=== PATIENT | female | born 1965 | race Caucasian/White ===

== ENCOUNTER 2019-03-16 06:00 | Outpatient (RCR) | payer MEDICARE, MEDICAID, SELFPAY | END 2019-04-13 00:01 | LOC: APT 06:00 | PROVIDERS: Family Provider Nurse Practitioner; Visit Provider Nurse Practitioner | DX: S93.401D Sprain of unspecified ligament of right ankle, subsequent encounter (principal); X58.XXXD Exposure to other specified factors, subsequent encounter | CPT/HCPCS: 97110; 97161 ==

== ENCOUNTER 2019-04-14 06:00 | Outpatient (RCR) | payer MEDICARE, MEDICAID, SELFPAY | END 2019-05-14 23:59 | disposition home or self-care (01) | LOC: APT 06:00 | PROVIDERS: Family Provider Nurse Practitioner; PCP Nurse Practitioner; Visit Provider Nurse Practitioner | DX: S93.401D Sprain of unspecified ligament of right ankle, subsequent encounter (principal); X58.XXXD Exposure to other specified factors, subsequent encounter ==

== ENCOUNTER → 2019-04-23 11:08 | Outpatient (BNVA) | payer MEDICARE, MEDICAID, SELFPAY | PROVIDERS: Family Provider Nurse Practitioner; PCP Nurse Practitioner | DX: M25.532 Pain in left wrist (principal); M85.88 Other specified disorders of bone density and structure, other site | CPT/HCPCS: 73110; 73130 ==

== ENCOUNTER 2019-04-27 01:59 | Emergency (ER) | payer MEDICARE, MEDICAID, SELFPAY ==
[2019-04-20 16:24] VITALS: BP 133/71; BMI 25.6
--- NOTE | 2019-04-27 02:05 | XR_ITS ---
WS: [id number] Left hand, 3 views, 04/27/2019 Clinical Data: pain Comparison: Left hand, 04/23/2019 Findings: No fractures or dislocations are seen. . The soft tissues are unremarkable. The joint spaces are norm al. XR/XR hand LT min 3V* [id number] Impression: Negative left hand.
[2019-04-27 02:45] VITALS: BMI 26.4
--- NOTE | 2019-04-27 02:56 | ED_ITS ---
Entered by Dede Boone, acting as scribe for Daniella Ortiz MD Apr 27, 2019 01:59 HPI - Extremity Problem General: Chief complaint: Extremity Injury, Upper Stated complaint: L HAND PAIN Time Seen by Provider: 04/27/19 02:49 Source: patient Mode of arrival: EMS Limitations: no limitations History of Present Illness: HPI Narrative: 53 yo f came to the er by [facility] for rt hand pain. Onset was last night. Pt states that she just woke up and her left hand was swollen and is in alot of pain. MD Complaint: extremity pain and extremity swelling Onset (ago): day(s) (today) Pain Consistency: constant Associated symptoms: Deny chest pain, fever(s) or rash Review of Systems Const: Denies: fever or chills Eyes: Denies: change in vision ENMT: Denies: throat pain or mouth pain Card: Denies: chest pain Resp: Denies: shortness of breath GI: Denies: abdominal pain, vomiting or diarrhea : Denies: difficulty urinating Musc: Reports: joint pain; Denies: back pain Skin/Breast: Denies: rash Neuro: Denies: headache Psych: Denies: depression Endo: Denies: excessive urination Pablo/Lymph: Denies: easy bruising All/Imm: Denies: hives PFSH ED PFSH: Statuses (acute, chronic, etc) shown below reflect problem list status as previously entered and may not be historically accurate Medical History Diabetes mellitus (Acute) Smoker (Inactive) Surgical History History of hysterectomy (Acute) History of neck surgery (Acute) Family History Mother Cancer Heart disease Social History Smoking and tobacco status: current every day smoker Second hand smoke exposure: Yes Alcohol intake: current Alcohol intake frequency: 0-2 Drinks per Day Marital status: History of recent travel: No Physical Exam Const: COMMON NORMALS: no apparent distress and healthy appearing HENMT: COMMON NORMALS: normocephalic and external nose normal HEAD & SCALP: normocephalic NOSE: external nose normal and no nasal discharge (nasal dischage) Eye: COMMON NORMALS: PERRL PUPIL: Yes PERRL Neck/C-Spine: COMMON NORMALS: full ROM and no lymphadenopathy Chest: COMMONS NORMALS: inspection of chest normal Resp: COMMON NORMALS: normal respiratory effort and clear to auscultation bilaterally AUSCULTATION: clear to auscultation bilaterally Cardio: COMMON NORMALS: regular rate and regular rhythm RATE: regular rate RHYTHM: regular rhythm GI: COMMON NORMALS: soft to palpation PALPATION: Yes soft Extremity: COMMON NORMALS: normal to inspection and normal capillary refill OTHER: Patient presents here with wrist pain with a slight left wrist drop tenderness over left wrist. She has sensation intact will not extend her hand or wrist she does have flexion intact Psych: COMMON NORMALS: mental status grossly normal and cooperative Skin: COMMON NORMALS: no rashes or lesions noted GENERAL SKIN EXAM: no rashes or lesions noted Course Vital Signs: Vital signs: Vital Signs Temperature 97.6 F 04/27/19 03:21 Pulse Rate 73 04/27/19 03:21 Respiratory Rate 18 04/27/19 03:21 Blood Pressure 100/57 04/27/19 03:21 Pulse Oximetry 93 04/27/19 03:21 MDM - Extremity (Nontraumatic) MDM Narrative: Medical decision making narrative: Patient presents here with wrist pain along with some wrist drop. Patient placed in a cock-up splint and is to follow-up with Dr. Calvo. Exam here is benign otherwise. X-ray shows no fracture. Imaging Data^: left wrist: My impression: no acute abnormality Discharge Plan Discharge Patient Disposition: Home, Self-Care Clinical Impression: Acute pain of left wrist Condition: Stable Prescriptions: New EC-Naprosyn 500 mg tablet,delayed release (DR/EC) 500 mg PO BID PRN (Reason: pain) Qty: 20 RF: 0 No Action trazodone 150 mg tablet PO ONCE RF: 0 atorvastatin [Lipitor] 20 mg tablet 20 mg PO ONCE RF: 0 lisinopril 2.5 mg tablet 2.5 mg PO ONCE RF: 0 Trulicity 0.75 mg/0.5 mL pen injector 0.75 mg SUBCUT ONCE RF: 0 omeprazole 40 mg capsule,delayed release(DR/EC) 40 mg PO ONCE RF: 0 tizanidine 2 mg tablet 2 mg PO BID RF: 0 aripiprazole [Abilify] 20 mg tablet 20 mg PO ONCE RF: 0 cannabidiol (CBD) extract 100 mg/mL solution PO RF: 0 benztropine 1 mg tablet 1 mg PO .HS RF: 0 (DME) Wrist Brace Misc See Rx Instructions .ROUTE .MEDSUPPLY Qty: 1 RF: 0 zonisamide [Zonegran] 25 mg capsule 50 mg PO BID Qty: 60 RF: 0 Discharge Orders: Discharge Order (Routine); Ordered 04/27/19 Ordered By: Daniella Ortiz Referrals: Lucila Thomas, HEALTH EDUCATION ASSISTANT-C [Primary Care Provider] - Ashley Corral MD [Physician] - 4-7 days Discharge Diet: Advance as tolerated Discharge Activity: Resume usual activity Patient Instructions: Arthralgia (ED) Discharge Date/Time: 04/27/19 03:22 Coding Level of Care Code ED Participant Administrator for Chg Fwd Exam Problem Focused The documentation recorded by the Paolo corral Stephanie Lyn, accurately reflects the service I personally performed and the decisions made by Diana laguerre Korby, MD Apr 27, 2019 01:59
[2019-04-27] MEDS: naproxen 500 mg Tablet PO (03:07)
[2019-04-27 03:18] VITALS: PULSE 73
[2019-04-27 03:21] VITALS: BP 100/57; PULSE 73; RESP 18; TEMP 36.4; O2SAT 93
--- NOTE | 2019-04-27 11:09 | DCPLANNER ---
project construction manager had message to schedule a follow up appointment for patient with ortho. project construction manager called the ortho clinic, spoke with Pat, gave clinic patients information. project construction manager was told that patients information would be printed and reviewed. Clinic will call case making machine operator and patient with appointment information.
--- NOTE | 2019-05-04 16:08 | DCPLANNER ---
Ary from ortho called insurance case manager and stated that patients records were reviewed, and was told that patient can follow up with primary care. If patient is still in pain after a few weeks and has followed up with primary care, then patient can be seen at ortho. Ary called patient, left a voicemail for patient to return her phone call so that patient could be told this, no one has returned orthos phone call at this time.
== END 2019-04-27 03:22 | disposition home or self-care (01) ==
PROVIDERS: Emergency Provider Emergency Medicine; Family Provider Nurse Practitioner; PCP Nurse Practitioner
DX: M25.532 Pain in left wrist (principal); E11.9 Type 2 diabetes mellitus without complications; Z79.4 Long term (current) use of insulin; F17.210 Nicotine dependence, cigarettes, uncomplicated
CPT/HCPCS: 73130; 99281; 99283

== ENCOUNTER 2019-05-22 21:07 | Emergency (ER) | payer MEDICARE, MEDICAID, SELFPAY ==
[2019-04-20 16:24] VITALS: BP 133/71; BMI 25.6
[2019-05-22 21:03] VITALS: BP 122/84; PULSE 100; RESP 16; TEMP 36.9; O2SAT 94; BMI 25.4
--- NOTE | 2019-05-22 21:24 | ED_ITS ---
HPI - Ear Problem General: Chief complaint: Ear Stated complaint: ear ache Time Seen by Provider: 05/22/19 21:22 History of Present Illness: HPI Narrative: Patient is a 53-year-old female who presents to the emergency department complaint of left ear pain since yesterday. She states she has had intermittent fever as well. She also states she had drainage from the left ear for 2 weeks. She has not seen her primary care provider. She states it is better when she applies cotton balls to the ear. History of dyslipidemia, hypertension, tardive dyskinesia, COPD, diabetes and bipolar disease. No surgical history. He has multiple allergies MD Complaint: ear pain and ear discharge Location: left ear Associated symptoms: Reports ear or mastoid pain and fever(s); Denies headache(s) Review of Systems Const: Reports: fever Eyes: Denies: change in vision ENMT: Reports: ear pain; Denies: dry mouth Card: Denies: edema Resp: Denies: shortness of breath GI: Denies: abdominal pain : Denies: flank pain, difficulty urinating or painful urination Musc: Denies: extremity swelling or redness Skin/Breast: Denies: rash or skin swelling Neuro: Denies: headache or weakness in extremities Psych: Denies: anxiety Endo: Denies: excessive urination Pablo/Lymph: Denies: purpura All/Imm: Denies: hives PFSH ED PFSH: Statuses (acute, chronic, etc) shown below reflect problem list status as previously entered and may not be historically accurate Social History Smoking and tobacco status: current every day smoker Second hand smoke exposure: Yes Alcohol intake: current Alcohol intake frequency: 0-2 Drinks per Day Marital status: History of recent travel: No Physical Exam Const: COMMON NORMALS: no apparent distress, oriented x3 and alert ORIENTATION/CONSCIOUSNESS: Yes oriented to person and Yes oriented to place HENMT: COMMON NORMALS: normocephalic HEAD & SCALP: normal to inspection and normocephalic EXTERNAL EAR: Yes mastoids normal TYMPANIC MEMBRANE: TM normal on the left and other (Mild erythema of left ear canal without drainage noted. Patient does have pain with auricular movement. TM appears to be intact with limited visualization.) Eye: COMMON NORMALS: PERRL, EOMs intact bilaterally and conjunctivae normal GENERAL EYE: normal appearance of both eyes CONJUNCTIVA: Yes conjunctivae normal PUPIL: Yes PERRL Neck/C-Spine: COMMON NORMALS: full ROM, no lymphadenopathy, supple, no meningeal signs and no JVD GENERAL: Yes normal visual inspection and Yes trachea midline Lymph: LYMPHATIC: no lymphadenopathy noted Chest: COMMONS NORMALS: inspection of chest normal Resp: COMMON NORMALS: normal respiratory effort, no retractions and clear to auscultation bilaterally EFFORT & INSPECTION: Yes able to speak in complete sentences AUSCULTATION: clear to auscultation bilaterally Cardio: COMMON NORMALS: no JVD, regular rate and regular rhythm RATE: regular rate RHYTHM: regular rhythm GI: INSPECTION: Yes normal to inspection AUSCULTATION: Yes normoactive darion wel sounds : COMMON NORMALS: Yes no CVA tenderness BLADDER/KIDNEY EXAM: Yes no CVA tenderness Back/Pelvis: COMMON NORMALS: no CVA tenderness THORACIC SPINE/UPPER BACK: Yes normal to inspection LUMBAR SPINE/LOWER BACK: Yes normal to inspection Extremity: COMMON NORMALS: normal to inspection, full ROM and normal capillary refill GENERAL: Yes normal exam except as noted Neuro: COMMON NORMALS: oriented x3, CN's II-XII intact bilaterally, moves all extremities, no focal motor deficits and no sensory deficits noted SENSORIUM/ORIENTATION: Yes alert, Yes oriented to person and Yes oriented to place MENINGEAL SIGNS: Yes no meningeal signs SPEECH: speech normal GAIT: Yes normal gait Psych: COMMON NORMALS: mental status grossly normal, thought process normal, cooperative, affect normal and speech normal APPEARANCE: Yes grossly normal SPEECH: Yes normal speech THOUGHT PROCESS: normal thought process Skin: COMMON NORMALS: no rashes or lesions noted, no wounds and skin turgor normal GENERAL SKIN EXAM: no rashes or lesions noted, elasticity normal and turgor normal Course ED course: Patient is typing on her computer but is able answer my questions with her complaint of left ear pain. Will treat for otitis externa. Patient instructed to follow-up with primary care provider and ENT for ongoing evaluation. No indication for laboratory imaging studies. No mastoid tender ness. Vital Signs: Vital signs: Vital Signs Temperature 98.4 F 05/22/19 21:03 Pulse Rate 100 05/22/19 21:03 Respiratory Rate 16 05/22/19 21:03 Blood Pressure 122/84 05/22/19 21:03 Pulse Oximetry 94 05/22/19 21:03 MDM - Ear MDM Narrative: Medical decision making narrative: Patient with otitis externa. Will provide ciprofloxacin eardrops. Patient instructed to follow-up with primary care provider and ENT services for ongoing evaluation. Differential Diagnosis: Ear Differential Diagnosis: Likely otitis externa, otitis media and ruptured TM Discharge Plan Discharge Patient Disposition: Home, Self-Care Clinical Impression: Otitis externa Condition: Stable Prescriptions: New ciprofloxacin HCl 0.2 % dropperette 5 drp otic (ear) BID 7 Days Qty: 1 RF: 0 No Action trazodone 150 mg tablet 150 mg PO ONCE RF: 0 tizanidine 2 mg tablet 2 mg PO BID RF: 0 aripiprazole [Abilify] 20 mg tablet 20 mg PO ONCE RF: 0 cannabidiol 100 mg/mL solution PO RF: 0 benztropine 1 mg tablet 1 mg PO .HS RF: 0 (DME) Wrist Brace Misc See Rx Instructions .ROUTE .MEDSUPPLY Qty: 1 RF: 0 zonisamide [Zonegran] 25 mg capsule 50 mg PO BID Qty: 60 RF: 0 lisinopril 2.5 mg tablet 2.5 mg PO QDAY Qty: 30 RF: 0 omeprazole 40 mg capsule,delayed release(DR/EC) 40 mg PO QDAY Qty: 30 RF: 0 atorvastatin [Lipitor] 20 mg tablet 20 mg PO QDAY Qty: 30 RF: 0 albuterol sulfate [Ventolin HFA] 90 mcg/actuation HFA aerosol inhaler 2 puff INHALATION Q6H PRN (Reason: shortness of breath or wheezing) Qty: 18 RF: 0 Symbicort 160-4.5 mcg/actuation HFA aerosol inhaler 2 puff INHALATION Q12H Qty: 10.2 RF: 0 Trulicity 0.75 mg/0.5 mL pen injector 0.75 mg SUBCUT .weekly Qty: 2 RF: 0 naproxen [EC-Naprosyn] 500 mg tablet,delayed release (DR/EC) 500 mg PO BID PRN (Reason: pain) Qty: 20 RF: 0 Referrals: Lucila Thomas FNP-C [Family Provider] - 1-3 days Floyd,Raúl, MD [Primary Care Provider] - Discharge Diet: Advance as tolerated Discharge Activity: Resume usual activity Patient Instructions: Otitis Externa - Adult Activity Restrictions/Additional Instructions: Apply medication as directed. Follow-up with primary care provider and ENT services for ongoing evaluation. May apply cotton ball to the outside ear canal to help prevent irritating wind. Alternate Tylenol Motrin for any discomfort. Coding Level of Care Code ED Mechanical Maintenance Technician for Lenny Winn
[2019-05-22 22:01] VITALS: BP 130/65; PULSE 103; RESP 20; O2SAT 98
== END 2019-05-22 21:56 | disposition home or self-care (01) ==
LOC: ER 05-24 15:53
PROVIDERS: Emergency Provider Nurse Practitioner; Family Provider Nurse Practitioner; PCP Urology
DX: H60.92 Unspecified otitis externa, left ear (principal); E78.5 Hyperlipidemia, unspecified; I10 Essential (primary) hypertension; J44.9 Chronic obstructive pulmonary disease, unspecified; E11.9 Type 2 diabetes mellitus without complications; Z79.4 Long term (current) use of insulin; Z79.51 Long term (current) use of inhaled steroids; F17.200 Nicotine dependence, unspecified, uncomplicated
CPT/HCPCS: 99281

== ENCOUNTER 2019-06-03 11:57 | Emergency (ER) | payer MEDICARE, MEDICAID, SELFPAY ==
[2019-04-20 16:24] VITALS: BP 133/71; BMI 25.6
[2019-06-03 12:04] VITALS: BP 138/97; PULSE 75; RESP 16; TEMP 36.9; O2SAT 97; BMI 27.1
--- NOTE | 2019-06-03 12:16 | ED_ITS ---
Entered by Carmelina Negrete, acting as scribe for Daren Nguyen MD, [facility] [place] - Headache General: Chief Complaint: Headache Stated Complaint: HEADACHE, VISION LOSS Time Seen by Provider: 06/03/19 12:14 Source: patient Mode of arrival: EMS Limitations: no limitations History of Present Illness: HPI Narrative: 54 yo Female presents to ED with complaint of headache and vision loss. Pt states that on the she had an angiogram of her brain. Pt states that the last time she held her breath for the angiogram on Friday she got a really bad headache. Pt states that she has slowly been losing vision in her right eye since the procedure. Pt states that if she closes her left eye she can see an outline but can't see detail out of her right eye. Pt states that she had the angiogram because a CT showed an abnormality between her right eye and her brain. 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 Pt states that when she called the surgeon's office today to tell them about her symptoms, she was told to get to the hospital right away. Pt states that her angiogram was done by Dr. Workman. LI elicited complaint: headache Onset (ago): day(s) Onset description: gradually Location: right Quality & Timing: constant Exacerbating factors: none Relieving factors: nothing Associated symptoms: Reports loss of vision; Deny chest pain, fever(s), nausea, rash or vomiting Treatments prior to arrival: none Review of Systems General: Reports: 10 or more systems reviewed and unremarkable except in HPI and below Const: Denies: fever, chills or body aches Eyes: Reports: change in vision; Denies: blurry vision ENMT: Denies: throat pain, enlarged tonsils, painful swallowing, hoarseness, mouth pain or swelling of lips/tongue Card: Denies: chest pain, palpitations, irregular heart rhythm, edema or swelling of feet/ankles Resp: Denies: shortness of breath, productive cough or non-productive cough GI: Denies: abdominal pain, nausea or vomiting : Denies: flank pain, difficulty urinating, painful urination, urinary frequency, urinary urgency or urinary hesitancy Musc: Denies: neck pain, back pain or extremity swelling Skin/Breast: Denies: rash, itching or redness Neuro: Reports: headache; Denies: numbness in extremities or weakness in extremities Endo: Denies: excessive urination, excessive thirst or tired all the time PFSH ED PFSH: Medical History Diabetes mellitus Smoker Surgical History History of hysterectomy History of neck surgery Family History Mother Cancer Heart disease Social History Smoking and tobacco status: current every day smoker Second hand smoke exposure: Yes Alcohol intake: current Alcohol intake frequency: 0-2 Drinks per Day Marital status: History of recent travel: No Physical Exam Const: COMMON NORMALS: no apparent distress, average body habitus, oriented x3, no limitations, healthy appearing, alert and well nourished HENMT: COMMON NORMALS: normocephalic, head/scalp atraumatic and moist oral mucous membranes HEAD & SCALP: normocephalic and atraumatic Eye: COMMON NORMALS: PERRL, EOMs intact bilaterally, conjunctivae normal and no scleral icterus CONJUNCTIVA: Yes conjunctivae normal PUPIL: Yes PERRL Neck/C-Spine: COMMON NORMALS: full ROM, supple, no meningeal signs, no JVD and no carotid bruits Chest: COMMONS NORMALS: inspection of chest normal and palpation of chest normal Resp: COMMON NORMALS: normal respiratory effort, no retractions, no use of accessory muscles, clear to auscultation bilaterally and percussion normal AUSCULTATION: clear to auscultation bilaterally PERCUSSION: percussion normal Cardio: COMMON NORMALS: no JVD, regular rate, regular rhythm, S1 normal heart sound, S2 normal heart sound, no gallops, no clicks, no murmurs, no rub and peripheral pulses 2+ throughout RATE: regular rate RHYTHM: regular rhythm HEART SOUNDS: S1 normal and S2 normal PERIPHERAL PULSES: pulses 2+ throughout GI: COMMON NORMALS: normal to inspection, nondistended, normoactive bowel sounds, soft to palpation, non-tender, no hepatosplenomegaly, no masses and no bruits PALPATION: Yes soft and Yes no hepatosplenomegaly : COMMON NORMALS: Yes no CVA tenderness BLADDER/KIDNEY EXAM: Yes no CVA tenderness Back/Pelvis: COMMON NORMALS: no CVA tenderness Extremity: COMMON NORMALS: normal to inspection, full ROM, normal capillary refill, no calf tenderness and no pedal edema Neuro: COMMON NORMALS: oriented x3 SENSORIUM/ORIENTATION: Yes alert MENINGEAL SIGNS: Yes no meningeal signs Skin: COMMON NORMALS: no rashes or lesions noted, no wounds, skin turgor normal, no jaundice, no petechiae and no mottling GENERAL SKIN EXAM: no rashes or lesions noted and turgor normal Course Reevaluation(s): Reevaluation #1: Patient feels much better following the Toradol and Benadryl. Headache has resolved. She is ready to be discharged home. I explained to her my conversation with Dr. Bay and she understands that she is scheduled for surgery soon. This is unlikely to be as a result of the arteriogram. Time: 16:46 Vital Signs: Vital signs: Vital Signs Temperature 98.4 F 06/03/19 12:04 Pulse Rate 75 06/03/19 12:04 Respiratory Rate 16 06/03/19 12:04 Blood Pressure 138/97 06/03/19 12:04 Pulse Oximetry 97 06/03/19 12:04 MDM - Headache MDM Narrative: Medical decision making narrative: 54-year-old female patient who presents to the emergency department with a headache following an arteriogram. Symptoms have been ongoing for 4 days. No focal deficits. She also has some reduced vision in the right eye. Head CT negative, other labs unremarkable. Discussed with the neurosurgeon/interventional radiologist and he does not think this is related to the arteriogram. She is already scheduled for an embolization in a couple of weeks. He advised that I discharge her home once her headache is improved following treatment for headaches. Patient headache resolved following Toradol and Benadryl. She is to follow-up with her primary care provider and with the neurosurgeon as scheduled. Medical Records: Attestation: I reviewed the patient's medical records. Medical records narrative: Reviewed the head and neck arteriogram showing the AV fistula Lab Data: Attestation: I reviewed the patient's lab results. Labs: Lab Results 06/03/19 06/03/19 06/03/19 Range/Units 13:05 13:05 13:05 WBC 10.2 H (4.0-10.0) 10^3/ uL RBC 4.16 (4.1-5.3) 10^6/u L Hgb 12.6 (11.5-15.3) g/dL Hct 42.7 (37.0-47.0) % MCV 102.6 H (81-99) fL MCH 30.3 (28.0-34.0) pg MCHC 29.5 L (30.0-36.0) g/dL RDW 12.8 (12.1-15.1) % Plt Count 170 (130-400) 10^3/c mm MPV 11.0 H (7.4-10.4) fL Neut % (Auto) 63.5 % Lymph % (Auto) 29.2 % Dolores % (Auto) 5.8 % Eos % (Auto) 0.6 % Baso % (Auto) 0.7 % Neut # (Auto) 6.5 (1.8-7.7) 10^3/u L Lymph # (Auto) 3.0 (0.8-4.8) 10^3/u L Dolores # (Auto) 0.6 (0.2-0.9) 10^3/u L Eos # (Auto) 0.1 (0.0-0.8) 10^3/u L Baso # (Auto) 0.1 (0.0-0.1) 10^3/u L Nucleated RBC % (a uto) 0 % Nucleated RBCs # 0.0 /100WBC PT 13.80 H (10.5-13.3) SECO NDS INR 1.03 (0.8-1.2) Sodium 142 (136-145) mmol/L Potassium 4.0 (3.5-5.1) mmol/L Chloride 108 H (98-107) mmol/L Carbon Dioxide 19 L (22-29) mmol/L Anion Gap 19.0 (5-19) BUN 8 (6-20) mg/dL Creatinine 0.7 (0.5-0.9) mg/dL GFR Calculation 87.2 L (90-130) mL/min Glucose 102 (65-115) mg/dL Calcium 10.1 (8.5-10.5) mg/dL Total Bilirubin 0.5 (0.15-1.2) mg/dL AST 15 (0-32) U/L ALT 10 (0-33) U/L Alkaline Phosphata se 83 (35-105) IU/L Total Protein 6.6 (6.6-8.7) g/dL Albumin 3.9 (3.5-5.2) g/dL Globulin 2.7 (1.3-4.6) g/dL Imaging Data^: CXR: Radiologist's impression: [address] [place] [address] XRay Report Signed Patient: Demetris Francisco #: [id number] : 1965Acct#:[id number] Age/Sex: 54 / FADM Date: 06/03/19 Loc: ERRoom/Bed: Attending Dr: Ordering Provider/Ordering MD: Daren Nguyen MD, [facility] [place] Date of Service: 06/03/19 Procedure(s): XR chest 2V* 13960 Accession Number(s): [id number] Report Number: [id number] WS: [id number] XR chest 2V* 60427 REASON FOR EXAM: headache FINDINGS: The heart and mediastinal interfaces are normal. Arteriosclerotic changes in the arch of the aorta. The hilum and apices are normal. Postop changes anterior approach anterior cervical spine. The lung joe are normal no pneumonia, pleural effusion, pulmonary edema, or pneumothorax. XR/XR chest 2V* 60102 IMPRESSION: Negative chest for active pathology. Dictated By:Sampson Caro DO Signed By:Sampson Caro DOSigned Date/Time:06/03/19 1254 DD/ 1253 CT Head: Radiologist's impression: [address] [place] [address] CT Scan Report Signed Patient: Demetris Francisco #: [id number] : 1965Acct#:[id number] Age/Sex: 54 / FADM Date: 06/03/19 Loc: ERRoom/Bed: Attending Dr: Ordering Provider/Ordering MD: Daren Nguyen MD, [facility] [place] Date of Service: 06/03/19 Procedure(s): CT head wo con* [id number] Accession Number(s): [id number] Report Number: [id number] WS: [id number] CT HEAD TECHNIQUE: Noncontrast CT of the head obtained from the skullbase to the vertex. CLINICAL INFORMATION: Headache, right vision loss COMPARISON: October 10, 2018 DLP: 701.[address] scans at [facility] use at least one of these dose optimization techniques: automated exposure control; mA and/or kV adjustment per patient size (includes targeted exams where dose is matched to clinical ind ication); or iterative reconstruction. FINDINGS: No evidence of intracranial hemorrhage or mass effect. Ventricular system and basal cisterns are patentNo extra-axial fluid collections. No evidence of mass or mass effect. Normal garza-white differentiation. Paranasal sinuses and mastoid air cells are well aerated. .Normal visualized soft tissues. Notified Daren Nguyen MD [facility] at 06/03/2019 1:[address]/CT head wo con* [id number] IMPRESSION: 1. No evidence of intracranial hemorrhage or mass effect. 2. Normal garza-white differentiation 3. 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 Dictated By:Ken Kwon MD Signed By:Ken Kwon MDSigned Date/Time:06/03/19 1306 DD/ 1259 EKG Data^: EKG 1: Attestation: I personally reviewed and interpreted this EKG as follows: EKG interpretation date: 06/03/19 EKG interpretation time: 13:15 Prior EKG tracings: not available for review Interpretation: Normal sinus rhythm. With sinus arrhythmia. Heart rate 61 bpm. Normal axis. No ST changes. Discharge Plan Discharge Patient Disposition: Home, Self-Care Clinical Impression: Migraine Qualifiers: Migraine type: without aura Status migrainosus presence: without status migrainosus Intractability: intractable Qualified Code(s): G43.019 - Migraine without aura, intractable, without status migrainosus Condition: Stable Prescriptions: Continued trazodone 150 mg tablet 150 mg PO ONCE RF: 0 tizanidine 2 mg tablet 2 mg PO BID RF: 0 aripiprazole [Abilify] 20 mg tablet 20 mg PO ONCE RF: 0 cannabidiol 100 mg/mL solution PO RF: 0 benztropine 1 mg tablet 1 mg PO .HS RF: 0 (DME) Wrist Brace Misc See Rx Instructions .ROUTE .MEDSUPPLY Qty: 1 RF: 0 zonisamide [Zonegran] 25 mg capsule 50 mg PO BID Qty: 60 RF: 0 lisinopril 2.5 mg tablet 2.5 mg PO QDAY Qty: 30 RF: 0 omeprazole 40 mg capsule,delayed release(DR/EC) 40 mg PO QDAY Qty: 30 RF: 0 atorvastatin [Lipitor] 20 mg tablet 20 mg PO QDAY Qty: 30 RF: 0 albuterol sulfate [Ventolin HFA] 90 mcg/actuation HFA aerosol inhaler 2 puff INHALATION Q6H PRN (Reason: shortness of breath or wheezing) Qty: 18 RF: 0 Symbicort 160-4.5 mcg/actuation HFA aerosol inhaler 2 puff INHALATION Q12H Qty: 10.2 RF: 0 Trulicity 0.75 mg/0.5 mL pen injector 0.75 mg SUBCUT .weekly Qty: 2 RF: 0 naproxen [EC-Naprosyn] 500 mg tablet,delayed release (DR/EC) 500 mg PO BID PRN (Reason: pain) Qty: 20 RF: 0 Discharge Orders: Discharge Order (Routine); Ordered 06/03/19 Ordered By: Daren Nguyen Referrals: Lucila Thomas, LE[facility] RECEPTIONIST-C [Family Provider] - 4-7 days Raúl Floyd MD [Primary Care Provider] - Patient Instructions: Headache - Migraine (Adult) Activity Restrictions/Additional Instructions: Return for any new or worsening symptoms. Follow-up with your primary care provider within 1 week. Follow-up with Dr. bay as scheduled for the surgery. Drink plenty of fluids to keep well-hydrated Coding Level of Care Code ED Dealership General Manager for Chg Fwd Exam Comprehensive The documentation recorded by the Penelope corral Carmen, accurately reflects the service I personally performed and the decisions made by Patrick laguerre Adegoke I, MD, [facility] [place] Jun 03, 2019 11:57
--- NOTE | 2019-06-03 12:26 | CT_ITS ---
WS: [id number] CT HEAD TECHNIQUE: Noncontrast CT of the head obtained from the skullbase to the vertex. CLINICAL INFORMATION: Headache, right vision loss COMPARISON: October 10, 2018 DLP: 701.[address] scans at [facility] use at least one of these dose optimization techniques: automat ed exposure control; mA and/or kV adjustment per patient size (includes targeted exams where dose is matched to clinical indication); or iterative reconstruction. FINDINGS: No evidence of intracranial hemorrhage or mass effect. Ventricular system and basal cisterns are martinez ntNo extra-axial fluid collections. No evidence of mass or mass effect. Normal garza-white differentia tion. Paranasal sinuses and mastoid air cells are well aerated. .Normal visualized soft tissues. Notified Daren Nguyen MD [facility] at 06/03/2019 1:[address]/CT head wo con* [id number] IMPRESSION: 1. No evidence of intracranial hemorrhage or mass effect. 2. Normal garza-white differentiation 3. 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
--- NOTE | 2019-06-03 12:26 | ECG_ITS ---
Measurements Intervals [place] Rate: 61 P: 54 RI: 141 QRS: 27 QRSD: 87 T: 27 QT: 396 QTc: 402 SINUS RHYTHM WITH SINUS ARRHYTHMIA Compared to ECG 10/08/2018 21:42:07 No significant changes Electronically Signed On 06-03-2019 19:06:45 SHOE DRESSER by Sabrina Benito M.D. [email or web address]
--- NOTE | 2019-06-03 12:27 | XR_ITS ---
WS: [id number] XR chest 2V* [id number] REASON FOR EXAM: headache FINDINGS: The heart and mediastinal interfaces are normal. Arteriosclerotic changes in the arch of th e aorta. The hilum and apices are normal. Postop changes anterior approach anterior cervical spine. The lung joe are normal no pneumonia, pleural effusion, pulmonary edema, or pneumothorax. XR/XR chest 2V* [id number] IMPRESSION: Negative chest for active pathology.
[2019-06-03 13:12] LABS: Basophils # 0.1 10^3/uL (0.0-0.1); Basophils % 0.7 %; Eosinophils # 0.1 10^3/uL (0.0-0.8); Eosinophils % 0.6 %; Hematocrit 42.7 % (37.0-47.0); Hemoglobin 12.6 g/dL (11.5-15.3); Lymphocytes % 29.2 %; Mean Corpuscular HGB Conc 29.5 g/dL (30.0-36.0); Mean Corpuscular Hemoglobin 30.3 pg (28.0-34.0); Mean Corpuscular Volume 102.6 fL (81-99); Monocytes # 0.6 10^3/uL (0.2-0.9); Monocytes % 5.8 %; Neutrophils # 6.5 10^3/uL (1.8-7.7); Neutrophils % 63.5 %; Nucleated Red Blood Cells % 0 %; Platelet Count 170 10^3/cmm (130-400); Red Blood Count 4.16 10^6/uL (4.1-5.3); Red Cell Distribution Width 12.8 % (12.1-15.1); White Blood Count 10.2 10^3/uL (4.0-10.0)
[2019-06-03 13:20] LABS: INR 1.03 (0.8-1.2)
[2019-06-03 13:31] LABS: Alanine Aminotransferase 10 U/L (0-33); Albumin Level 3.9 g/dL (3.5-5.2); Alkaline Phosphatase 83 IU/L (35-105); Aspartate Amino Transferase 15 U/L (0-32); Blood Urea Nitrogen 8 mg/dL (6-20); Calcium 10.1 mg/dL (8.5-10.5); Carbon Dioxide 19 mmol/L (22-29); Chloride 108 mmol/L (98-107); Globulin 2.7 g/dL (1.3-4.6); Glomerular Filtration Rate 87.2 mL/min (90-130); Glucose 102 mg/dL (65-115); Sodium 142 mmol/L (136-145); Total Bilirubin 0.5 mg/dL (0.15-1.2); Total Protein 6.6 g/dL (6.6-8.7)
[2019-06-03 13:39] LABS: Slide Review Slide Review Perform
[2019-06-03] MEDS: diphenhydrAMINE 50 mg/mL SDV 1mL 25 MG IVP (16:20)
[2019-06-03] MEDS: ketorolac 30 mg/mL INJ IVP (16:22)
[2019-06-03 17:38] VITALS: BP 137/88; PULSE 87; RESP 14; TEMP 36.9; O2SAT 99
== END 2019-06-03 17:36 | disposition home or self-care (01) ==
PROVIDERS: Emergency Provider Family Medicine; Family Provider Nurse Practitioner; PCP Urology
DX: G43.909 Migraine, unspecified, not intractable, without status migrainosus (principal); E11.9 Type 2 diabetes mellitus without complications; F17.200 Nicotine dependence, unspecified, uncomplicated; H54.61 Unqualified visual loss, right eye, normal vision left eye
CPT/HCPCS: 36415; 70450; 71046; 80053; 85025; 85610; 93005; 96374; 96375; 99282; 99283; J1200; J1885

== ENCOUNTER → 2019-07-13 10:35 | Outpatient (BNVA) | payer MEDICARE, MEDICAID, SELFPAY | PROVIDERS: Family Provider Nurse Practitioner; PCP Urology; Visit Provider Nurse Practitioner | DX: J06.9 Acute upper respiratory infection, unspecified (principal); H60.8X3 Other otitis externa, bilateral; E11.9 Type 2 diabetes mellitus without complications; E78.5 Hyperlipidemia, unspecified; J44.9 Chronic obstructive pulmonary disease, unspecified | CPT/HCPCS: 80053; 80061; 83036 ==

== ENCOUNTER 2019-07-21 20:23 | Emergency (ER) | payer MEDICARE, MEDICAID, SELFPAY ==
[2019-04-20 16:24] VITALS: BP 133/71; BMI 25.6
[2019-07-21 20:24] VITALS: BP 160/74; PULSE 88; RESP 18; TEMP 36.8; O2SAT 97; BMI 28.3
--- NOTE | 2019-07-21 20:36 | XR_ITS ---
WS: [id number] CHEST XRAY TECHNIQUE: Portable chest. CLINICAL INFORMATION: soa, fever COMPARISON: June 03, 2019 FINDINGS: Heart: Normal cardiac silhouette. Lungs: Lungs are clear. No consolidation or pleural effusion. Bones: Postoperative changes lower cervical spine. XR/XR chest 1V portable [id number] IMPRESSION: No acute chest findings
--- NOTE | 2019-07-21 20:46 | ED_ITS ---
HPI - Chest Pain General: Chief Complaint: Chest Pain Stated Complaint: Cough, Fever, SOB, Chest Pain Time Seen by Provider: 07/21/19 20:25 Source: patient and RN notes reviewed History of Present Illness: HPI narrative: 54-year-old female with cough shortness of breath and fever for 2 days. She tells me that her measured temperature at home just prior to coming in today was at 100.2 and denies taking any Tylenol or Motrin since yesterday. She was hospitalized in [place] about 3 weeks ago for an aneurysm in her brain. No other travel or known contacts with coated patients. No diarrhea or vomiting. Associated symptoms: Reports dyspnea; Deny abdominal pain, fever(s), nausea or vomiting Review of Systems General: Reports: 10 or more systems reviewed and unremarkable except in HPI and below Const: Denies: fever or chills Eyes: Denies: change in vision ENMT: Denies: throat pain Card: Reports: chest pain Resp: Reports: shortness of breath and productive cough GI: Denies: abdominal pain, nausea, vomiting or change in bowel habits : Denies: difficulty urinating Musc: Denies: muscle weakness Skin/Breast: Denies: rash Neuro: Denies: headache Psych: Denies: hopelessness or suicidal ideation Endo: Denies: excessive urination Pablo/Lymph: Denies: easy bruising or easy bleeding All/Imm: Denies: hives PFSH ED PFSH: Medical History Cervical post-laminectomy syndrome COPD (chronic obstructive pulmonary disease) Diabetes mellitus GERD with esophagitis History of methamphetamine abuse Smoker Surgical History History of angiography Brain June 2019 History of brain surgery June 21, 2019 aneurysm repair History of hysterectomy History of neck surgery Social History Smoking and tobacco status: current every day smoker Second hand smoke exposure: Yes Smoking risk assessment/counseling performed?: Yes Alcohol intake: current Alcohol intake frequency: 0-2 Drinks per Day Desire information about alcohol rehabilitation?: No Counseling given: No Desire information about substance/drug rehabilitation?: No Counseling given: No Caregiver/support person: No Lives independently: Yes Household members: spouse Housing: House Marital status: service: No Current occupational status: unemployed Pets and animals: Yes History of recent travel: No Current gender identity: Female Physical Exam Const: COMMON NORMALS: no apparent distress, oriented x3, alert and well nourished HENMT: COMMON NORMALS: normocephalic and external nose normal HEAD & SCALP: normocephalic NOSE: external nose normal MOUTH: no trismus Eye: COMMON NORMALS: EOMs intact bilaterally and conjunctivae normal CONJUNCTIVA: Yes conjunctivae normal Neck/C-Spine: COMMON NORMALS: full ROM, no lymphadenopathy and supple CERVICAL SPINE: Yes cervical ROM normal Lymph: LYMPHATIC: no lymphadenopathy noted Resp: COMMON NORMALS: normal respiratory effort, no retractions, no use of accessory muscles and clear to auscultation bilaterally EFFORT & INSPECTION: Yes able to speak in complete sentences and Yes other (actively coughing with mask on) AUSCULTATION: clear to auscultation bilaterally Cardio: COMMON NORMALS: regular rate and regular rhythm RATE: regular rate RHYTHM: regular rhythm GI: COMMON NORMALS: normal to inspection, nondistended, normoactive bowel sounds, soft to palpation, non-tender and no masses INSPECTION: Yes normal to inspection AUSCULTATION: Yes normoactive bowel sounds PALPATION: Yes soft, No guarding and No rigid Back/Pelvis: OTHER: Normal range of motion Extremity: GENERAL: Yes normal exam except as noted Neuro: COMMON NORMALS: oriented x3 and CN's II-XII intact bilaterally SENSORIUM/ORIENTATION: Yes alert SPEECH: speech normal Psych: COMMON NORMALS: mental status grossly normal Skin: COMMON NORMALS: no rashes or lesions noted GENERAL SKIN EXAM: no rashes or lesions noted Course Vital Signs: Vital signs: Vital Signs Temperature 98.2 F 07/21/19 20:24 Pulse Rate 88 07/21/19 20:24 Respiratory Rate 18 07/21/19 20:24 Blood Pressure 160/74 07/21/19 20:24 Pulse Oximetry 97 07/21/19 20:24 MDM - Chest Pain MDM Narrative: Medical decision making narrative: Offered patient steroids but she says that she is allergic to steroids and they cause a rash. Will give dose of Robitussin here and I will write prescription for Tessalon and Robitussin-DM. She was swabbed for coded and influenza her recently was tested for coven tested negative so she is familiar with self quarantining and will institute that and has been at home other than being at [facility] about 3 weeks ago. We also talked about air filters and changing her pillowcase frequently as she has been keeping the door open pollen count is very high and it is humid the last couple of days. We also discussed the fact that she needs to use her albuterol nebulizer more frequently than once a day. I explained she can use that every 4 hours if needed. Lab Data: Attestation: I reviewed the patient's lab results. Labs: Lab Results 07/21/19 07/21/19 07/21/19 Range/Units 20:46 20:46 20:46 WBC 12.2 H (4.0-10.0) 10^3/ uL RBC 4.01 L (4.1-5.3) 10^6/u L Hgb 12.1 (11.5-15.3) g/dL Hct 37.9 (37.0-47.0) % MCV 94.5 (81-99) fL MCH 30.2 (28.0-34.0) pg MCHC 31.9 (30.0-36.0) g/dL RDW 13.0 (12.1-15.1) % Plt Count 350 (130-400) 10^3/c mm MPV 9.9 (7.4-10.4) fL Neut % (Auto) 53.0 % Lymph % (Auto) 35.5 % [place] % (Auto) 7.4 % Eos % (Auto) 2.9 % Baso % (Auto) 0.8 % Neut # (Auto) 6.5 (1.8-7.7) 10^3/u L Lymph # (Auto) 4.3 (0.8-4.8) 10^3/u L [place] # (Auto) 0.9 (0.2-0.9) 10^3/u L Eos # (Auto) 0.4 (0.0-0.8) 10^3/u L Baso # (Auto) 0.1 (0.0-0.1) 10^3/u L Nucleated RBC % (a uto) 0 % Nucleated RBCs # 0.0 /100WBC D-Dimer <= 0.27 (0-0.59) ug/mIFE U Sodium 141 (136-145) mmol/L Potassium 4.0 (3.5-5.1) mmol/L Chloride 107 (98-107) mmol/L Carbon Dioxide 22 (22-29) mmol/L Anion Gap 16.0 (5-19) BUN 24 H (6-20) mg/dL Creatinine 0.8 (0.5-0.9) mg/dL GFR Calculation 74.7 L (90-130) mL/min Glucose 99 (65-115) mg/dL Calculated Osmolal ity 289 (285-295) mOsm/k g Lactic Acid (0.5-2.2) mmol/L Calcium 10.4 (8.5-10.5) mg/dL Total Bilirubin 0.2 (0.15-1.2) mg/dL AST 17 (0-32) U/L ALT 13 (0-33) U/L Alkaline Phosphata se 101 (35-105) IU/L Lactate Dehydrogen ase 142 (135-214) U/L C-Reactive Protein 10.5 H (0.0-4.9) mg/L Total Protein 7.2 (6.6-8.7) g/dL Albumin 4.1 (3.5-5.2) g/dL Globulin 3.1 (1.3-4.6) g/dL 07/21/19 Range/Units 20:46 WBC (4.0-10.0) 10^3/ uL RBC (4.1-5.3) 10^6/u L Hgb (11.5-15.3) g/dL Hct (37.0-47.0) % MCV (81-99) fL MCH (28.0-34.0) pg MCHC (30.0-36.0) g/dL RDW (12.1-15.1) % Plt Count (130-400) 10^3/c mm MPV (7.4-10.4) fL Neut % (Auto) % Lymph % (Auto) % [place] % (Auto) % Eos % (Auto) % Baso % (Auto) % Neut # (Auto) (1.8-7.7) 10^3/u L Lymph # (Auto) (0.8-4.8) 10^3/u L [place] # (Auto) (0.2-0.9) 10^3/u L Eos # (Auto) (0.0-0.8) 10^3/u L Baso # (Auto) (0.0-0.1) 10^3/u L Nucleated RBC % (a uto) % Nucleated RBCs # /100WBC D-Dimer (0-0.59) ug/mIFE U Sodium (136-145) mmol/L Potassium (3.5-5.1) mmol/L Chloride (98-107) mmol/L Carbon Dioxide (22-29) mmol/L Anion Gap (5-19) BUN (6-20) mg/dL Creatinine (0.5-0.9) mg/dL GFR Calculation (90-130) mL/min Glucose (65-115) mg/dL Calculated Osmolal ity (285-295) mOsm/k g Lactic Acid 0.7 (0.5-2.2) mmol/L Calcium (8.5-10.5) mg/dL Total Bilirubin (0.15-1.2) mg/dL AST (0-32) U/L ALT (0-33) U/L Alkaline Phosphata se (35-105) IU/L Lactate Dehydrogen ase (135-214) U/L C-Reactive Protein (0.0-4.9) mg/L Total Protein (6.6-8.7) g/dL Albumin (3.5-5.2) g/dL Globulin (1.3-4.6) g/dL Imaging Data^: CXR: Attestation: I personally reviewed and interpreted this imaging study as follows: My impression: NAD EKG Data^: EKG 1: Attestation: I personally reviewed and interpreted this EKG as follows: EKG interpretation date: 07/21/19 EKG interpretation time: 22:07 Interpretation: Sinus tach rate [address] elevation noted there is artifact Discharge Plan Discharge Patient Disposition: Home, Self-Care Clinical Impression: Cough Fever Qualifiers: Fever type: unspecified Qualified Code(s): R50.9 - Fever, unspecified Condition: Stable Prescriptions: New benzonatate [Tessalon Perles] 100 mg capsule 100 mg PO TID PRN (Reason: cough) Qty: 21 RF: 0 Robitussin Cough-Chest Ken DM 5-100 mg/5 mL liquid 10 ml PO Q8H PRN (Reason: cough) Qty: 118 RF: 0 No Action cannabidiol 100 mg/mL solution PO RF: 0 aripiprazole [Abilify] 20 mg tablet 20 mg PO DAILY RF: 0 (DME) Wrist Brace Misc See Rx Instructions .ROUTE .MEDSUPPLY Qty: 1 RF: 0 benztropine 1 mg tablet 1 mg PO .HS Qty: 30 RF: 1 trazodone 150 mg tablet See Rx Instructions PO .QHS Qty: 60 RF: 1 atorvastatin [Lipitor] 20 mg tablet 20 mg PO QDAY Qty: 30 RF: 2 albuterol sulfate [Ventolin HFA] 90 mcg/actuation HFA aerosol inhaler 2 inh INHALATION Q6H PRN (Reason: shortness of breath or wheezing) Qty: 18 RF: 2 Symbicort 160-4.5 mcg/actuation HFA aerosol inhaler 2 puff INHALATION Q12H Qty: 10.2 RF: 2 Trulicity 0.75 mg/0.5 mL pen injector 0.75 mg SUBCUT .weekly Qty: 2 RF: 2 omeprazole 40 mg capsule,delayed release(DR/EC) 40 mg PO QDAY Qty: 30 RF: 2 tizanidine 2 mg tablet 2 mg PO BID Qty: 60 RF: 2 zonisamide [Zonegran] 25 mg capsule 25 mg PO BID Qty: 60 RF: 2 promethazine-DM 6.25-15 mg/5 mL syrup 5 ml PO Q6H PRN (Reason: cough) Qty: 120 RF: 0 Cortisporin-TC 3.3-3-10-0.5 mg/mL drops,suspension 4 drop EAR-BOTH TID Qty: 10 RF: 0 lisinopril 2.5 mg tablet 2.5 mg PO QDAY Qty: 30 RF: 2 naproxen [EC-Naprosyn] 500 mg tablet,delayed release (DR/EC) 500 mg PO BID PRN (Reason: pain) Qty: 20 RF: 0 Referrals: Lucila Thomas FNP-C [Family Provider] - Raúl Floyd MD [Primary Care Provider] - Patient Instructions: Allergies (ED), Acute Cough (ED) Activity Restrictions/Additional Instructions: As per our discussion, use your albuterol nebulizer machine up to every 4 hours if needed for shortness of breath. Someone will contact you when you are Covid 19 test is back. Until then you need to continue to quarantine yourself. I wrote prescriptions for 2 different cough medicines. Try to obtain an air filter and continue your allergy medicine. Also consider changing your pillowcase daily as pollen and irritants can cause more shortness of breath and allergy symptoms during allergy season. Coding Level of Care Code ED Clinical Nursing Instructor for Lenny Winn Exam Comprehensive
[2019-07-21 20:54] LABS: Basophils # 0.1 10^3/uL (0.0-0.1); Basophils % 0.8 %; Eosinophils # 0.4 10^3/uL (0.0-0.8); Eosinophils % 2.9 %; Hematocrit 37.9 % (37.0-47.0); Hemoglobin 12.1 g/dL (11.5-15.3); Lymphocytes # 4.3 10^3/uL (0.8-4.8); Lymphocytes % 35.5 %; Mean Corpuscular HGB Conc 31.9 g/dL (30.0-36.0); Mean Corpuscular Hemoglobin 30.2 pg (28.0-34.0); Mean Corpuscular Volume 94.5 fL (81-99); Mean Platelet Volume 9.9 fL (7.4-10.4); Monocytes # 0.9 10^3/uL (0.2-0.9); Monocytes % 7.4 %; Neutrophils # 6.5 10^3/uL (1.8-7.7); Nucleated Red Blood Cells % 0 %; Platelet Count 350 10^3/cmm (130-400); Red Blood Count 4.01 10^6/uL (4.1-5.3); White Blood Count 12.2 10^3/uL (4.0-10.0)
[2019-07-21 21:05] LABS: D Dimer <= 0.27 ug/mIFEU (0-0.59)
[2019-07-21 21:11] LABS: Lactic Sepsis W/Reflex 0.7 mmol/L (0.5-2.2)
[2019-07-21 21:12] LABS: Alanine Aminotransferase 13 U/L (0-33); Albumin Level 4.1 g/dL (3.5-5.2); Alkaline Phosphatase 101 IU/L (35-105); Aspartate Amino Transferase 17 U/L (0-32); Blood Urea Nitrogen 24 mg/dL (6-20); C Reactive Protein 10.5 mg/L (0.0-4.9); Calcium 10.4 mg/dL (8.5-10.5); Carbon Dioxide 22 mmol/L (22-29); Chloride 107 mmol/L (98-107); Creatinine Clr Calc Pharmacy 76.7423; Globulin 3.1 g/dL (1.3-4.6); Glomerular Filtration Rate 74.7 mL/min (90-130); Glucose 99 mg/dL (65-115); Lactate Dehydrogenase 142 U/L (135-214); Osmolality Calculated 289 mOsm/kg (285-295); Sodium 141 mmol/L (136-145); Total Bilirubin 0.2 mg/dL (0.15-1.2); Total Protein 7.2 g/dL (6.6-8.7)
[2019-07-21] MEDS: guaiFENesin-dextromethorphan UDC 10 mL 5 ML PO (22:36)
[2019-07-21 22:50] VITALS: BP 160/74; PULSE 104; RESP 22; O2SAT 96
[2019-07-21 22:54] LABS: Influenza A by IFA Negative (Negative); Influenza B by IFA Negative (Negative)
--- NOTE | 2019-07-21 22:56 | PC.NURSE ---
RN reviewed and agrees with assessment.
[2019-07-22 01:22] LABS: Ferritin 98 ng/mL (15-150)
[2019-07-24 09:10] LABS: Coronavirus Overall Results See Report; Coronavirus Qual PCR Source See Report; Pan-SARS RNA: See Report; Patient Symptomatic? See Report; SARS-CoV-2 RNA: See Report
[2019-07-24 14:32] LABS: ABG PCO2 38.4 mmHg (35-45); Arterial Blood Gas Hematocrit 38.9 % (37-47); Base Excess ABG -1.1 mmol/L (-2.0-2.0); Blood Gas Allen Test Pos; Blood Gas Sample Site Radial, left; Blood Gas Sample Type Arterial; HCO3 ABG 23.5 mmol/L (22-26); PO2 ABG 78.8 mmHg (80.0-100.0)
== END 2019-07-21 22:50 | disposition home or self-care (01) ==
PROVIDERS: Emergency Provider Emergency Medicine; Family Provider Nurse Practitioner; PCP Urology
DX: J30.2 Other seasonal allergic rhinitis (principal); R05 Cough; J44.9 Chronic obstructive pulmonary disease, unspecified; E11.9 Type 2 diabetes mellitus without complications; E78.5 Hyperlipidemia, unspecified; K21.0 Gastro-esophageal reflux disease with esophagitis; F17.200 Nicotine dependence, unspecified, uncomplicated
CPT/HCPCS: 12345; 36415; 36600; 71045; 80053; 82728; 82803; 83605; 83615; 85025; 85378; 86140; 87040; 87635; 87804; 99282; 99284

== ENCOUNTER → 2019-07-27 08:25 | Outpatient (BNVA) | payer MEDICARE, MEDICAID, SELFPAY | PROVIDERS: Family Provider Nurse Practitioner; PCP Urology; Visit Provider Nurse Practitioner | DX: F33.2 Major depressive disorder, recurrent severe without psychotic features (principal); F12.20 Cannabis dependence, uncomplicated; F25.1 Schizoaffective disorder, depressive type | CPT/HCPCS: 99213 ==

== ENCOUNTER 2019-07-30 11:41 | Outpatient (CLI) | payer MEDICARE, MEDICAID, SELFPAY ==
[2019-04-20 16:24] VITALS: BP 133/71; BMI 25.6
--- NOTE | 2019-07-30 12:00 | CT_ITS ---
WS: [id number] CT HEAD TECHNIQUE: Noncontrast CT of the head obtained from the skullbase to the vertex. CLINICAL INFORMATION: vision change COMPARISON: June 03, 2019 DLP: 925.[address] scans at [facility] use at least one of these dose optimization techniques: automat ed exposure control; mA and/or kV adjustment per patient size (includes targeted exams where dose is matched to clinical indication); or iterative reconstruction. FINDINGS: No evidence of intracranial hemorrhage or mass effect. Ventricular system and basal cisterns are martinez nt. 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 Additional embolization coils along the left transverse sinus. Normal garza-white differentiation. No extra-axial fluid collections. Paranasal sinuses and mastoid air cells are well aerated. .Normal visualized soft tissues. CT/CT head wo con* [id number] IMPRESSION: 1. No evidence of intracranial hemorrhage or mass effect. 2. Interval postoperative changes embolization of the previously described rig ht middle cranial fossa, cavernous sinus, and inferior frontal lobe vascular an omaly/dural AV fistula. 3. Normal garza-white differentiation. 4. No acute intracranial findings.
== END 2019-07-30 11:42 | disposition home or self-care (01) ==
LOC: RADWPI 11:46
PROVIDERS: Family Provider Nurse Practitioner; PCP Nurse Practitioner; Visit Provider Nurse Practitioner
DX: H53.9 Unspecified visual disturbance (principal)
CPT/HCPCS: 70450

== ENCOUNTER 2019-08-13 09:22 | Outpatient (CLI) | payer MEDICARE, MEDICAID, SELFPAY ==
[2019-04-20 16:24] VITALS: BP 133/71; BMI 25.6
--- NOTE | 2019-08-13 10:00 | IR_ITS ---
WS: [id number] MYELOGRAM CERVICAL SPINE Fluoroscopic guided cervical myelogram CLINICAL INFORMATION: cervical pain COMPARISON: None. TECHNIQUE: The procedure, including risks, benefits, and complications, were discussed with the patie nt who agreed to proceed. A timeout was performed to confirm correct patient, procedure, and site. Using sterile technique, the patient was prepped and draped in the usual sterile fashion. After admin istration of local anesthesia using 1% preservative-free lidocaine and using fluoroscopic guidance, a 22-gauge spinal needle was advanced into the subarachnoid space at the L4-5 level. Subsequently 13 c c of Omnipaque 300 was administered into the thecal sac. The needle was removed and hemostasis was ac hieved. Subsequently the table was tilted down and contrast flowed freely into the cervical spine. Sp ot fluoroscopic images were obtained. FLUOROSCOPIC TIME: 1.1 minutes. Spot fluoroscopic images demonstrate free flow of contrast in the cervical spine. Anterior interbody cervical fusion C4-C6 with interbody fusion grafts. Normal prevertebral soft tissues. Disc space zeferino rowing C3-C4 and C6-7. Normal C1-2 articulation. Moderate facet arthropathy throughout the cervical s pine. Straightening of the normal cervical lordosis on the neutral view. No instability on flexion-ex tension. Please see CT myelogram report for additional detail. IR/IR myelogram sp cervical [id number] IMPRESSION: 1. Uncomplicated cervical myelogram. 2. Straightening of the normal cervical lordosis. No instability on flexion-ex tension. 3. Postoperative changes anterior interbody cervical fusion C4-C6.
[2019-08-13] MEDS: iohexol 300 mg/mL 50 mL Btl INTRATHECA (11:04)
--- NOTE | 2019-08-13 11:30 | CT_ITS ---
WS: [id number] CT CERVICAL MYELOGRAM TECHNIQUE: CT of the cervical spine coronal and sagittal reformatted images post intrathecal administ ration of contrast. CLINICAL INFORMATION: cervical pain COMPARISON: None. DLP: 2150.[address] scans at [facility] use at least one of these dose optimization techniques: automat ed exposure control; mA and/or kV adjustment per patient size (includes targeted exams where dose is matched to clinical indication); or iterative reconstruction. FINDINGS: Mild cervical curve convex left. Prior postoperative changes anterior cervical fusion C4-C6 with inte rbody fusion grafts. Subsidence along the interbody fusion grafts. No evidence of anterior cervical h ardware loosening. No significant bony bridging beyond the confines of the grafts. No high-grade cent ral canal stenosis. C2-C3: No significant disc bulging. Spinal canal and foramen are patent. C3-C4: Mild disc space narrowing. Tiny shallow central protrusion. Spinal canal and foramen are paten t. C4-C5: Anterior interbody cervical fusion. Mild bilateral bony foraminal narrowing. Spinal canal is p atent. C5-C6: Anterior interbody cervical fusion. Moderate left bony foraminal narrowing. Right foramen is p atent. Central protruding osteophyte with indentation on the cervical cord. Mild central canal stenos is. C6-C7: Mild left greater than right foraminal narrowing. Spinal canal is patent. Tiny central protrus ion. Mild facet arthropathy. C7-T1: No significant disc bulging. Mild right and no significant left foraminal narrowing. Spinal ca nal is patent. Mastoid air cells are well aerated. Visualized posterior fossa structures: Normal. CT/CT cervical spine w con [id number] IMPRESSION: 1. Mild cervical curve convex left. 2. Prior anterior cervical fusion C4-C6 with interbody fusion grafts. Subsiden ce along the interbody fusion grafts. Interbody fusion appears incomplete. Ante rior cervical fusion hardware is intact. 3. Central protruding osteophyte C5-C6 with slight indentation on the ventral cervical cord and mild central canal stenosis. 4. Moderate bony foraminal narrowing worse at left C5-C6 5. Mild right C4-5 and left C6-C7 bony foraminal narrowing.
== END 2019-08-13 09:23 | disposition home or self-care (01) ==
LOC: RADWPI 09:26
PROVIDERS: Family Provider Nurse Practitioner; PCP Nurse Practitioner; Visit Provider Specialist
DX: M54.2 Cervicalgia (principal); M43.22 Fusion of spine, cervical region; M25.78 Osteophyte, vertebrae; M48.02 Spinal stenosis, cervical region
CPT/HCPCS: 62302; 72040; 72126; Q9967

== ENCOUNTER 2019-08-13 22:24 | Emergency (ER) | payer MEDICARE, MEDICAID, SELFPAY ==
[2019-04-20 16:24] VITALS: BP 133/71; BMI 25.6
[2019-08-13 22:26] VITALS: BP 126/70; PULSE 83; RESP 18; TEMP 36.6; O2SAT 97; BMI 30.9
--- NOTE | 2019-08-13 22:58 | W.ED.HA ---
HPI - Headache General: Chief Complaint: Headache Stated Complaint: headache Time Seen by Provider: 08/13/19 22:30 Source: patient and old records reviewed Mode of arrival: ambulatory Limitations: no limitations History of Present Illness: HPI Narrative: 54-year-old female patient who presented today for an outpatient cervical myelogram earlier. The patient states that a few hours ago she developed a headache which gradually worsened and she was informed that if the headache got unbearable she needed to present to the emergency department for evaluation. She is therefore here to be seen. She has light sensitivity, mild dizziness, no nausea, no vomiting, no loss of consciousness. MD elicited complaint: headache Pertinent past history: other (Had a cervical myelogram today) Onset description: gradually Severity: severe Associated symptoms: Reports lightheadedness; Deny fever(s), nausea, rash or vomiting Review of Systems General: Reports: 10 or more systems reviewed and unremarkable except in HPI and below Const: Denies: fever, chills or body aches Eyes: Denies: change in vision or blurry vision Card: Reports: lightheadedness Resp: Denies: shortness of breath, productive cough or non-productive cough GI: Denies: abdominal pain, nausea or vomiting : Denies: flank pain, difficulty urinating, painful urination, urinary frequency, urinary urgency or urinary hesitancy Musc: Denies: neck pain, back pain or extremity swelling Skin/Breast: Denies: rash, itching or redness Neuro: Denies: headache, numbness in extremities or weakness in extremities Endo: Denies: excessive urination, excessive thirst or tired all the time [facility] ED PFSH: Social History Smoking and tobacco status: current every day smoker Alcohol intake: never Lives independently: Yes Household members: spouse Marital status: Current occupational status: unemployed History of recent travel: No Physical Exam Const: COMMON NORMALS: no apparent distress, average body habitus, oriented x3, no limitations, healthy appearing, alert and well nourished HENMT: COMMON NORMALS: normocephalic, head/scalp atraumatic and moist oral mucous membranes HEAD & SCALP: normocephalic and atraumatic Eye: COMMON NORMALS: PERRL, EOMs intact bilaterally, conjunctivae normal and no scleral icterus CONJUNCTIVA: Yes conjunctivae normal PUPIL: Yes PERRL Neck/C-Spine: COMMON NORMALS: full ROM, supple, no meningeal signs, no JVD and no carotid bruits Chest: COMMONS NORMALS: inspection of chest normal and palpation of chest normal Resp: COMMON NORMALS: normal respiratory effort, no retractions, no use of accessory muscles, clear to auscultation bilaterally and percussion normal AUSCULTATION: clear to auscultation bilaterally PERCUSSION: percussion normal Cardio: COMMON NORMALS: no JVD, regular rate, regular rhythm, S1 normal heart sound, S2 normal heart sound, no gallops, no clicks, no murmurs, no rub and peripheral pulses 2+ throughout RATE: regular rate RHYTHM: regular rhythm HEART SOUNDS: S1 normal and S2 normal PERIPHERAL PULSES: pulses 2+ throughout GI: COMMON NORMALS: normal to inspection, nondistended, normoactive bowel sounds, soft to palpation, non-tender, no hepatosplenomegaly, no masses and no bruits PALPATION: Yes soft and Yes no hepatosplenomegaly : COMMON NORMALS: Yes no CVA tenderness BLADDER/KIDNEY EXAM: Yes no CVA tenderness Back/Pelvis: COMMON NORMALS: no CVA tenderness Extremity: COMMON NORMALS: normal to inspection, full ROM, normal capillary refill, no calf tenderness and no pedal edema Neuro: COMMON NORMALS: oriented x3 SENSORIUM/ORIENTATION: Yes alert MENINGEAL SIGNS: Yes no meningeal signs OTHER: no focal weakness. Skin: COMMON NORMALS: no rashes or lesions noted, no wounds, skin turgor normal, no jaundice, no petechiae and no mottling GENERAL SKIN EXAM: no rashes or lesions noted and turgor normal Course Reevaluation(s): Reevaluation #1: Patient seen. She is sleeping. When i woke her, she said her headache has improved. Will discharge her home once her fluids are done. She voiced understanding and is in agreement with the plan. Time: 00:01 Vital Signs: Vital signs: Vital Signs Temperature 97.9 F 08/13/19 22:26 Pulse Rate 83 08/13/19 22:26 Respiratory Rate 18 08/13/19 22:26 Blood Pressure 126/70 08/13/19 22:26 Pulse Oximetry 97 08/13/19 22:26 MDM - Headache MDM Narrative: Medical decision making narrative: 54-year-old female patient who presents to the emergency department with a headache following a cervical myelogram done earlier. Headache improved with intravenous ketorolac and fentanyl as well as IV fluid. She is discharged home with no new orders and she is to follow-up with her doctors as scheduled. Discharge Plan Discharge Patient Disposition: Home, Self-Care Clinical Impression: Spinal headache Condition: Stable Prescriptions: Continued cannabidiol 100 mg/mL solution PO RF: 0 benztropine 1 mg tablet 1 mg PO .HS Qty: 30 RF: 2 aripiprazole [Abilify] 20 mg tablet 20 mg PO DAILY Qty: 30 RF: 2 trazodone 150 mg tablet See Rx Instructions PO .QHS Qty: 60 RF: 2 sertraline [Zoloft] 100 mg tablet 100 mg PO DAILY Qty: 30 RF: 2 (DME) Wrist Brace Misc See Rx Instructions .ROUTE .MEDSUPPLY Qty: 1 RF: 0 atorvastatin [Lipitor] 20 mg tablet 20 mg PO QDAY Qty: 30 RF: 2 Symbicort 160-4.5 mcg/actuation HFA aerosol inhaler 2 puff INHALATION Q12H Qty: 10.2 RF: 2 Trulicity 0.75 mg/0.5 mL pen injector 0.75 mg SUBCUT .weekly Qty: 2 RF: 2 omeprazole 40 mg capsule,delayed release(DR/EC) 40 mg PO QDAY Qty: 30 RF: 2 tizanidine 2 mg tablet 2 mg PO BID Qty: 60 RF: 2 zonisamide [Zonegran] 25 mg capsule 25 mg PO BID Qty: 60 RF: 2 promethazine-DM 6.25-15 mg/5 mL syrup 5 ml PO Q6H PRN (Reason: cough) Qty: 120 RF: 0 Cortisporin-TC 3.3-3-10-0.5 mg/mL drops,suspension 4 drop EAR-BOTH TID Qty: 10 RF: 0 lisinopril 2.5 mg tablet 2.5 mg PO QDAY Qty: 30 RF: 2 albuterol sulfate [Ventolin HFA] 90 mcg/actuation HFA aerosol inhaler 2 inh INHALATION Q6H PRN (Reason: shortness of breath or wheezing) Qty: 18 RF: 2 naproxen [EC-Naprosyn] 500 mg tablet,delayed release (DR/EC) 500 mg PO BID PRN (Reason: pain) Qty: 20 RF: 0 Tessalon Perles 100 mg capsule 100 mg PO TID PRN (Reason: cough) Qty: 21 RF: 0 Robitussin Cough-Chest Ken DM 5-100 mg/5 mL liquid 10 ml PO Q8H PRN (Reason: cough) Qty: 118 RF: 0 Discharge Orders: Discharge Order (Routine); Ordered 08/14/19 Ordered By: Daren Nguyen Referrals: Kam Cartwright MD [Physician] - (as scheduled) Lucila Thomas FNP-C [Primary Care Provider] - 1-3 days Activity Restrictions/Additional Instructions: Return for any new or worsening symptoms. Follow-up with the neurosurgeon as scheduled. Follow-up with your primary care provider within 3 days. Drink lots of fluids to keep well-hydrated. Coding Level of Care Code ED Staff Physical Therapy Assistant for Chg Fwd Exam Comprehensive
[2019-08-13] MEDS: sodium chloride 0.9% 1,000 ML 999 ML IV (23:39)
[2019-08-13] MEDS: ketorolac 30 mg/mL INJ 15 MG IVP (23:39)
[2019-08-13] MEDS: fentaNYL 50 mcg/mL INJ 2mL IVP (23:40)
[2019-08-14 01:12] VITALS: BP 122/68; PULSE 78; RESP 16; O2SAT 98
== END 2019-08-14 01:15 | disposition home or self-care (01) ==
PROVIDERS: Emergency Provider Family Medicine; Family Provider Nurse Practitioner; PCP Nurse Practitioner
DX: T88.59XA Other complications of anesthesia, initial encounter (principal); F17.210 Nicotine dependence, cigarettes, uncomplicated
CPT/HCPCS: 12345; 96361; 96374; 96375; 99281; 99283; J1885; J3010; J7030

== ENCOUNTER 2019-09-14 21:39 | Emergency (ER) | payer MEDICARE, MEDICAID, SELFPAY ==
[2019-04-20 16:24] VITALS: BP 133/71; BMI 25.6
[2019-09-14 21:49] VITALS: BP 117/76; PULSE 94; RESP 14; TEMP 36.5; O2SAT 97; BMI 26.7
--- NOTE | 2019-09-14 22:06 | MRR_ITS ---
PROCEDURE INFORMATION: Exam: MR Lumbar Spine Without Contrast. Exam date and time: 09/14/2019 10:54 PM Age: 54 years old Clinical indication: Low back pain; Prior surgery; Additional info: Cauda equina symptoms TECHNIQUE: Imaging protocol: Multiplanar magnetic resonance images of the lumbar spine without intravenous contrast. COMPARISON: No relevant prior studies available. FINDINGS: Vertebrae: Alignment is normal. Spinal cord: The spinal cord is unremarkable. There is no abnormal signal or cord compression. The tip of the conus medullaris lies at L1-L2. L1-L2: Normal disc. Mild bilateral facet and ligamentous hypertrophy. No spinal canal or neuroforaminal stenosis. L2-L3: Mild generalized disc bulge. No focal disc herniation. Mild bilateral facet and ligamentous hypertrophy. No spinal canal or neuroforaminal stenosis. L3-L4: Normal disc. Mild bilateral facet and ligamentous hypertrophy. No spinal canal or neuroforaminal stenosis. L4-L5: Right extraforaminal disc protrusion. Mild generalized disc bulge. Mild bilateral facet and ligamentous hypertrophy. Trace bilateral facet effusion. Mild spinal canal stenosis. No significant neural foraminal stenosis. L5-S1: Disc desiccation. Mild generalized disc bulge. Left central annular fissure. No significant disc herniation. Mild bilateral facet and ligamentous hypertrophy. Mild spinal canal stenosis. Mild bilateral neuroforaminal stenosis. Other bones/joints: Bone marrow signal intensity is normal. No edema. Soft tissues: Paraspinal soft tissues are unremarkable. Visible intra-abdominal soft tissues are unremarkable. MR/MR lumbar spine wo con* [id number] IMPRESSION: 1. No acute findings. 2. Mild lower lumbar degenerative disc and facet disease producing mild spinal canal stenosis at L4-L5 and L5-S1 and mild bilateral neural foraminal stenosis at L5-S1.
[2019-09-14 22:22] LABS: Basophils # 0.1 10^3/uL (0.0-0.1); Eosinophils # 0.2 10^3/uL (0.0-0.8); Eosinophils % 1.9 %; Hematocrit 42.9 % (37.0-47.0); Hemoglobin 13.7 g/dL (11.5-15.3); Lymphocytes # 4.5 10^3/uL (0.8-4.8); Lymphocytes % 41.7 %; Mean Corpuscular HGB Conc 31.9 g/dL (30.0-36.0); Mean Corpuscular Hemoglobin 30.5 pg (28.0-34.0); Mean Corpuscular Volume 95.5 fL (81-99); Mean Platelet Volume 10.6 fL (7.4-10.4); Monocytes # 0.8 10^3/uL (0.2-0.9); Monocytes % 7.2 %; Neutrophils # 5.2 10^3/uL (1.8-7.7); Neutrophils % 47.8 %; Nucleated Red Blood Cells % 0 %; Platelet Count 290 10^3/cmm (130-400); Red Blood Count 4.49 10^6/uL (4.1-5.3); Red Cell Distribution Width 13.6 % (12.1-15.1); White Blood Count 10.9 10^3/uL (4.0-10.0)
--- NOTE | 2019-09-14 22:24 | W.ED.WEAKNES ---
HPI - Weakness General: Chief complaint: Weakness Stated complaint: leg weakness, fall Time Seen by Provider: 09/14/19 21:55 History of Present Illness: HPI Narrative: Brenna is a 54-year-old female who comes in with a report of back pain and increasing leg weakness. Patient states that on 20 August she had a myelogram and since that time she has had progressive weakness of her legs and increased back pain. She denies any fevers or chills. She denies any new injuries to the affected area. She denies any loss of bowel or bladder control. Associated symptoms: Denies chest pain, chills, confusion, melena, diaphoresis, dysuria, easy bruising, fever(s), headache(s), nausea, syncope or vomiting Review of Systems Const: Denies: fever(s), chills, body aches, fatigue, malaise or diaphoresis Eyes: Denies: change in vision, blurry vision, blind spots or photophobia ENMT: Denies: throat pain, odynophagia, hoarseness, swelling of lips/tongue, ear or mastoid pain, ear discharge, change in hearing or nasal discharge Card: Denies: chest pain, palpitations, irregular heart rhythm, edema, lightheadedness, syncope, pre-syncope, dyspnea on exertion or orthopnea Resp: Denies: dyspnea, productive cough, non-productive cough, wheezing, hemoptysis or chest congestion GI: Denies: abdominal pain, nausea, vomiting, hematemesis, coffee ground emesis, heartburn, diarrhea, constipation, GI cramping, hematochezia or melena : Denies: flank pain, dysuria, urinary frequency, urinary urgency or hematuria Musc: Reports: back pain; Denies: neck pain, extremity pain, extremity swelling, joint pain, joint swelling, joint redness, joint warmth or joint stiffness Skin/Breast: Denies: rash, pruritus, erythema, skin tenderness or jaundice Neuro: Reports: weakness in extremities; Denies: headache(s), numbness in extremities, sensory changes, lack of coordination, difficulty walking, dizziness, vertigo, confusion or Slurred speech present Pablo/Lymph: Denies: easy bruising, easy bleeding, petechiae, purpura or enlarged lymph nodes All/Imm: Denies: urticaria, throat swelling, tongue swelling, facial swelling or acute wheezing PFSH ED PFSH: Medical History Cannabis dependence, uncomplicated Cervical disc disorder with myelopathy of mid-cervical region Cervical post-laminectomy syndrome COPD (chronic obstructive pulmonary disease) Diabetes mellitus GERD with esophagitis History of methamphetamine abuse Major depressive disorder, recurrent severe without psychotic features Schizoaffective disorder, depressive type Smoker Surgical History History of angiography Brain June 2019 History of brain surgery June 21, 2019 endovascular treatment of dural AV fistula History of cervical spinal arthrodesis C4-C6 ACDFF; [place], [place]; 11/01/2015 History of hysterectomy Family History Mother Cancer Heart disease Social History Smoking and tobacco status: current every day smoker Alcohol intake: never Adopted: No Lives independently: Yes Household members: spouse Marital status: Number of children: 0 Current occupational status: unemployed Current occupational exposures/hazards: No History of recent travel: No Physical Exam Const: COMMON NORMALS: no acute distress, patient oriented x3, no limitations, healthy appearing and well nourished GENERAL APPEARANCE: cooperative, well kempt and well developed HENMT: COMMON NORMALS: normocephalic, atraumatic, hearing grossly normal bilaterally, external ears normal, EAC's normal, Normal external nose present and moist oral mucous membranes HEAD & SCALP: normocephalic and atraumatic NOSE: Normal external nose present and Normal nares present EXTERNAL EAR: Yes external ears normal EXTERNAL AUDITORY CANAL: EAC's normal MOUTH: Normal oral and palatal mucosa present, lip normal and tongue normal Eye: COMMON NORMALS: Equal, round and reactive pupils present, EOMs intact bilaterally, conjunctivae normal and no scleral icterus GENERAL EYE: appearance normal, both eyes and all related structures ALIGNMENT: Yes alignment normal PERIORBITAL: periorbital findings normal EYELID: eyelids normal CONJUNCTIVA: Yes conjunctivae normal SCLERA: sclerae normal PUPIL: Yes Equal, round and reactive pupils present Neck/C-Spine: COMMON NORMALS: full ROM, no lymphadenopathy, supple, no meningeal signs and no JVD GENERAL: Yes normal visual inspection and Yes trachea midline Chest: COMMONS NORMALS: normal inspection of the chest and normal palpation of entire chest wall Resp: COMMON NORMALS: normal respiratory effort, No retractions, No use of accessory muscles and clear to auscultation bilaterally EFFORT & INSPECTION: Yes able to speak in complete sentences and Yes symmetric chest movement AUSCULTATION: clear to auscultation bilaterally, no crackles, no rales, no rhonchi and no wheezes Cardio: COMMON NORMALS: no JVD, regular rate, regular rhythm, S1 normal heart sound present, S2 normal heart sound present, No gallops present (Cardio), No clicks present (Cardio), No murmurs present (Cardio) and No rub (Cardio) RATE: regular rate RHYTHM: regular rhythm HEART SOUNDS: S1 normal heart sound present and S2 normal heart sound present GI: COMMON NORMALS: Soft to palpation and No hepatosplenomegaly present PALPATION: Yes Soft to palpation, No Tenderness to palpation present (GI), No Guarding due to palpation present (GI), No Rigid due to palpation, Yes No hepatosplenomegaly present, No Hernia present, No Palpable mass present and No Pulsatile mass present RECTAL EXAM: visual inspection normal and normal sphincter tone : COMMON NORMALS: Yes no CVA tenderness BLADDER/KIDNEY EXAM: Yes no CVA tenderness EXTERNAL FEMALE EXAM: No Hernia present Back/Pelvis: COMMON NORMALS: no CVA tenderness, thoracic and lumbar spine normal to inspection, no thoracic nor lumbar tenderness and thoraco-lumbar ROM normal Extremity: COMMON NORMALS: normal to inspection, full ROM, capillary refill normal, no joint enlargement, no clubbing, cyanosis or edema and no calf tenderness Neuro: COMMON NORMALS: patient oriented x3, CN's II-XII intact bilaterally, moves all extremities and no sensory deficits noted MENINGEAL SIGNS: Yes no meningeal signs SPEECH: speech normal GAIT: Yes Unable to assess gait Psych: COMMON NORMALS: mental status grossly normal, Normal thought process present, cooperative, normal affect, speech normal and activity/motor behavior normal APPEARANCE: Yes well kempt SPEECH: Yes normal speech THOUGHT PROCESS: Normal thought process present Skin: COMMON NORMALS: no rashes or lesions noted, turgor normal, no jaundice, no petechiae and no mottling GENERAL SKIN EXAM: no rashes or lesions noted and turgor normal Course ED course: 2219 -Case reviewed with Dr. Cartwright, the patient's neurosurgeon. He recommends MRI to be performed to rule out epidural hematoma or abscess causing the patient's symptoms. Vital Signs: Vital signs: Vital Signs Temperature 97.7 F 09/14/19 21:49 Pulse Rate 106 H 09/15/19 00:42 Respiratory Rate 18 09/15/19 00:42 Blood Pressure 110/66 09/15/19 00:42 Pulse Oximetry 94 09/15/19 00:42 MDM - Weakness MDM Narrative: Medical decision making narrative: The patient has no evidence of urinary retention, no saddle anesthesia, she has normal rectal tone and is able to walk here with assistance. I did review the case again with Dr. Cartwright who understands the MRI is normal. He agrees that we can safely rule out epidural abscess or epidural hematoma. I did personally review the case by phone with radiologist who assures me he sees nothing to suggest cord compression or cauda equina type syndrome. The patient is relieved to hear this and is ready to be discharged. On exam she does have significant muscle spasms and both of her lower lumbar paraspinal areas. I will switch her to ibuprofen and Flexeril. She understands not to take her other muscle relaxers with this. She agrees to return should her symptoms change or worsen but at this time she is feeling better and would like to go home. Lab Data: Labs: Lab Results 09/14/19 09/14/19 09/14/19 Range/Units 22:15 22:15 22:41 WBC 10.9 H (4.0-10.0) 10^3/ uL RBC 4.49 (4.1-5.3) 10^6/u L Hgb 13.7 (11.5-15.3) g/dL Hct 42.9 (37.0-47.0) % MCV 95.5 (81-99) fL MCH 30.5 (28.0-34.0) pg MCHC 31.9 (30.0-36.0) g/dL RDW 13.6 (12.1-15.1) % Plt Count 290 (130-400) 10^3/c mm MPV 10.6 H (7.4-10.4) fL Neut % (Auto) 47.8 % Lymph % (Auto) 41.7 % [place] % (Auto) 7.2 % Eos % (Auto) 1.9 % Baso % (Auto) 1.0 % Neut # (Auto) 5.2 (1.8-7.7) 10^3/u L Lymph # (Auto) 4.5 (0.8-4.8) 10^3/u L [place] # (Auto) 0.8 (0.2-0.9) 10^3/u L Eos # (Auto) 0.2 (0.0-0.8) 10^3/u L Baso # (Auto) 0.1 (0.0-0.1) 10^3/u L Nucleated RBC % (a uto) 0 % Nucleated RBCs # 0.0 /100WBC Sodium 140 (136-145) mmol/L Potassium 4.4 (3.5-5.1) mmol/L Chloride 106 (98-107) mmol/L Carbon Dioxide 22 (22-29) mmol/L Anion Gap 16.4 (5-19) BUN 14 (6-20) mg/dL Creatinine 0.7 (0.5-0.9) mg/dL GFR Calculation 87.2 L (90-130) mL/min Glucose 107 (65-115) mg/dL Calculated Osmolal ity 287 (285-295) mOsm/k g Calcium 10.4 (8.5-10.5) mg/dL Magnesium 2.2 (1.7-2.3) mg/dL Total Bilirubin 0.2 (0.15-1.2) mg/dL AST 18 (0-32) U/L ALT 14 (0-33) U/L Alkaline Phosphata se 82 (35-105) IU/L Total Protein 6.9 (6.6-8.7) g/dL Albumin 4.4 (3.5-5.2) g/dL Globulin 2.5 (1.3-4.6) g/dL Urine Color Yellow (Yellow) Urine Appearance Sl hazy (CLEAR) Urine pH 5 (5-7) Ur Specific Gravit y 1.025 (1.005-1.030) Urine Protein Neg (Negative) Urine Glucose (UA) Norm (Normal) Urine Ketones Negative (Negative) Urine Blood Neg (Negative) Urine Nitrate Negative (Negative) Urine Bilirubin Neg (NEGATIVE) Urine Urobilinogen Norm (Negative) mg/dL Ur Leukocyte Marisa ase 1+ H (Negative) Urine RBC 0-4 H (0-2) /hpf Urine WBC 0-4 H (0-5) /hpf Ur Squamous Epith Cells 0-4 H (0-5) Urine Bacteria 1+ H (NONE) Imaging Data^: MRI Lumbar Spine: Radiologist's impression: [facility] [address] [place] [address] Magnetic Resonance Report Signed Patient: Brenna Francisco Unit #: [id number] : 1965 Age/Sex: 54 / F ADM Date: 09/14/19 Loc: ER Room/Bed: Attending Dr: Ordering Provider/Ordering MD: Sarika Garcia DO Date of Service: 09/14/19 Procedure(s): MR lumbar spine wo con* [id number] Accession Number(s): [id number] Report Number: [id number] PROCEDURE INFORMATION: Exam: MR Lumbar Spine Without Contrast. Exam date and time: 09/14/2019 10:54 PM Age: 54 years old Clinical indication: Low back pain; Prior surgery; Additional info: Cauda equina symptoms TECHNIQUE: Imaging protocol: Multiplanar magnetic resonance images of the lumbar spine without intravenous contrast. COMPARISON: No relevant prior studies available. FINDINGS: Vertebrae: Alignment is normal. Spinal cord: The spinal cord is unremarkable. There is no abnormal signal or cord compression. The tip of the conus medullaris lies at L1-L2. L1-L2: Normal disc. Mild bilateral facet and ligamentous hypertrophy. No spinal canal or neuroforaminal stenosis. L2-L3: Mild generalized disc bulge. No focal disc herniation. Mild bilateral facet and ligamentous hypertrophy. No spinal canal or neuroforaminal stenosis. L3-L4: Normal disc. Mild bilateral facet and ligamentous hypertrophy. No spinal canal or neuroforaminal stenosis. L4-L5: Right extraforaminal disc protrusion. Mild generalized disc bulge. Mild bilateral facet and ligamentous hypertrophy. Trace bilateral facet effusion. Mild spinal canal stenosis. No significant neural foraminal stenosis. L5-S1: Disc desiccation. Mild generalized disc bulge. Left central annular fissure. No significant disc herniation. Mild bilateral facet and ligamentous hypertrophy. Mild spinal canal stenosis. Mild bilateral neuroforaminal stenosis. Other bones/joints: Bone marrow signal intensity is normal. No edema. Soft tissues: Paraspinal soft tissues are unremarkable. Visible intra-abdominal soft tissues are unremarkable. MR/MR lumbar spine wo con* [id number] IMPRESSION: 1. No acute findings. 2. Mild lower lumbar degenerative disc and facet disease producing mild spinal canal stenosis at L4-L5 and L5-S1 and mild bilateral neural foraminal stenosis at L5-S1. Dictated By: Leandro Mi MD Signed By: Leandro Mi MD Signed Date/Time: 09/14/192319 DD/ 18 Discharge Plan Discharge Patient Disposition: Home, Self-Care Clinical Impression: Back pain Qualifiers: Back pain location: low back pain Chronicity: acute Back pain laterality: bilateral Sciatica presence: without sciatica Qualified Code(s): M54.5 - Low back pain Condition: Stable Prescriptions: New cyclobenzaprine 10 mg tablet 10 mg PO TID PRN (Reason: muscle spasm) Qty: 30 RF: 0 ibuprofen 800 mg tablet 800 mg PO TID PRN (Reason: pain) Qty: 30 RF: 0 No Action cannabidiol 100 mg/mL solution PO RF: 0 benztropine 1 mg tablet 1 mg PO .HS Qty: 30 RF: 2 aripiprazole [Abilify] 20 mg tablet 20 mg PO DAILY Qty: 30 RF: 2 sertraline [Zoloft] 100 mg tablet 100 mg PO DAILY Qty: 30 RF: 2 (DME) Wrist Brace Misc See Rx Instructions .ROUTE .MEDSUPPLY Qty: 1 RF: 0 sucralfate [Carafate] 1 gram tablet 1 gm PO BID Qty: 60 RF: 2 Spiriva with HandiHaler 18 mcg capsule, w/inhalation device 1 cap INHALATION DAILY Qty: 30 RF: 1 meclizine 25 mg tablet 25 mg PO BID Qty: 20 RF: 0 Ciprodex 0.3-0.1 % drops,suspension 4 drop EAR-BOTH BID 7 Days Qty: 7.5 RF: 0 atorvastatin [Lipitor] 20 mg tablet 20 mg PO QDAY Qty: 30 RF: 2 Hold Instructions: Muscle pain Symbicort 160-4.5 mcg/actuation HFA aerosol inhaler 2 puff INHALATION Q12H Qty: 10.2 RF: 2 Trulicity 0.75 mg/0.5 mL pen injector 0.75 mg SUBCUT .weekly Qty: 2 RF: 2 tizanidine 2 mg tablet 2 mg PO BID Qty: 60 RF: 2 zonisamide [Zonegran] 25 mg capsule 25 mg PO BID Qty: 60 RF: 2 promethazine-DM 6.25-15 mg/5 mL syrup 5 ml PO Q6H PRN (Reason: cough) Qty: 120 RF: 0 trazodone 150 mg tablet 150 mg PO .QHS Qty: 30 RF: 2 lisinopril 2.5 mg tablet 2.5 mg PO QDAY Qty: 30 RF: 2 albuterol sulfate [Ventolin HFA] 90 mcg/actuation HFA aerosol inhaler 2 inh INHALATION Q6H PRN (Reason: shortness of breath or wheezing) Qty: 18 RF: 2 naproxen [EC-Naprosyn] 500 mg tablet,delayed release (DR/EC) 500 mg PO BID PRN (Reason: pain) Qty: 20 RF: 0 Tessalon Perles 100 mg capsule 100 mg PO TID PRN (Reason: cough) Qty: 21 RF: 0 Robitussin Cough-Chest Ken DM 5-100 mg/5 mL liquid 10 ml PO Q8H PRN (Reason: cough) Qty: 118 RF: 0 Discharge Orders: Discharge Order (Routine); Ordered 09/15/19 Ordered By: Sarika Garcia Referrals: Kam Cartwright MD [Physician] - 7-10 days Lucila Thomas FNP-C [Primary Care Provider] - 1-3 days Discharge Diet: Advance as tolerated Discharge Activity: Increase activity as tolerated Patient Instructions: Acute Low Back Pain (ED) Activity Restrictions/Additional Instructions: Please return to the ER immediately for any of the signs or symptoms listed on your discharge instruction sheets, worsening/changing of your symptoms, you are not getting better as quickly as expected, or for ANY other cause or concerns. Return to the ER for loss of bowel or bladder control, numbness in your groin, increased pain, leg weakness, or for any other cause for concern. Do not take any other muscle relaxers while you are taking the cyclobenzaprine I have prescribed you. Do not take naproxen or any other nonsteroidal medications while you are taking the ibuprofen I have prescribed you. Discharge Date/Time: 09/15/19 00:43 Coding Level of Care Code ED Precast Worker for Chg Fwd Exam Comprehensive
[2019-09-14 22:36] LABS: Alanine Aminotransferase 14 U/L (0-33); Albumin Level 4.4 g/dL (3.5-5.2); Alkaline Phosphatase 82 IU/L (35-105); Anion Gap 16.4 (5-19); Aspartate Amino Transferase 18 U/L (0-32); Blood Urea Nitrogen 14 mg/dL (6-20); Calcium 10.4 mg/dL (8.5-10.5); Carbon Dioxide 22 mmol/L (22-29); Chloride 106 mmol/L (98-107); Globulin 2.5 g/dL (1.3-4.6); Glomerular Filtration Rate 87.2 mL/min (90-130); Glucose 107 mg/dL (65-115); Magnesium 2.2 mg/dL (1.7-2.3); Osmolality Calculated 287 mOsm/kg (285-295); Potassium 4.4 mmol/L (3.5-5.1); Sodium 140 mmol/L (136-145); Total Bilirubin 0.2 mg/dL (0.15-1.2); Total Protein 6.9 g/dL (6.6-8.7)
[2019-09-14 23:09] LABS: Bacteria Urine 1+; Bilirubin Urine Neg (NEGATIVE); Blood Urine Neg (Negative); Glucose Urine UA Norm (Normal); Ketones Urine Negative (Negative); Leukocyte Esterase Urine 1+ (Negative); Nitrate Urine Negative (Negative); Protein Urine Neg (Negative); RBC Urine 0-4 /hpf (0-2); Specific Gravity, Urine 1.025 (1.005-1.030); Squamous Epithelial Cell Urine 0-4 (0-5); Urine Appearance SL Hazy (CLEAR); Urine Color Yellow (Yellow); Urobilinogen Urine Norm (Negative); WBC Urine 0-4 /hpf (0-5); pH Urine 5 (5-7)
[2019-09-14 23:30] VITALS: BP 97/60; PULSE 78; RESP 18; O2SAT 96
[2019-09-15 00:42] VITALS: BP 110/66; PULSE 106; RESP 18; O2SAT 94
== END 2019-09-15 00:43 | disposition home or self-care (01) ==
PROVIDERS: Emergency Provider Emergency Medicine; PCP Nurse Practitioner
DX: M54.5 Low back pain (principal); J44.9 Chronic obstructive pulmonary disease, unspecified; E11.9 Type 2 diabetes mellitus without complications; F17.210 Nicotine dependence, cigarettes, uncomplicated
CPT/HCPCS: 12345; 36415; 72148; 80053; 81001; 83735; 85025; 87040; 99282; 99283

== ENCOUNTER 2019-10-08 17:23 | Emergency (ER) | payer MEDICARE, MEDICAID, SELFPAY ==
[2019-10-08 15:52] VITALS: BP 133/71; BMI 25.6
[2019-10-08 17:50] VITALS: BP 134/74; PULSE 81; RESP 14; TEMP 36.7; O2SAT 98; BMI 27.1
--- NOTE | 2019-10-08 19:50 | XRR_ITS ---
PROCEDURE INFORMATION: Exam: XR Chest, 1 View Exam date and time: 10/08/2019 8:23 PM Age: 54 years old Clinical indication: Apnea; Additional info: Dyspnea TECHNIQUE: Imaging protocol: XR of the chest Views: 1 view. COMPARISON: CR XR chest 1V portable [id number] 07/21/2019 8:56 PM FINDINGS: Lungs: No visible active interstitial or alveolar airspace disease. Pleural space: Unremarkable. No pleural effusion. No pneumothorax. Heart/Mediastinum: Unremarkable. No cardiomegaly. Bones/joints: Evidence of previous cervical fusion. XR/XR chest 1V portable [id number] IMPRESSION: Nonacute.
--- NOTE | 2019-10-08 19:57 | W.ED.SOB ---
HPI - SOB/Dyspnea General: Chief Complaint: Shortness of Breath/Dyspnea Stated Complaint: sob Time Seen by Provider: 10/08/19 19:50 Source: patient Mode of arrival: ambulatory Limitations: no limitations History of Present Illness: HPI Narrative: Patient comes in today for concerns of increased shortness of breath. Patient states that she was at her doctor's office and he recommended she be checked out further in the emergency department. Patient came in at the end of the day and most of his staff had already gone home she states and he was not able to check her out anymore. Patient was given a breathing treatment at the office and then referred to the ER. Patient appears chronically ill. Patient appears no acute distress. Patient appears in no pain. Patient reports that she has had increased shortness of breath for 1 day. MD elicited complaint: shortness of breath Review of Systems General: Reports: 10 or more systems reviewed and unremarkable except in HPI and below Resp: Reports: dyspnea and productive cough PFSH ED PFSH: Medical History Cannabis dependence, uncomplicated Cervical disc disorder with myelopathy of mid-cervical region Cervical post-laminectomy syndrome COPD (chronic obstructive pulmonary disease) Diabetes mellitus GERD with esophagitis History of methamphetamine abuse Major depressive disorder, recurrent severe without psychotic features Schizoaffective disorder, depressive type Smoker Surgical History History of angiography Brain June 2019 History of brain surgery June 21, 2019 endovascular treatment of dural AV fistula History of cervical spinal arthrodesis C4-C6 ACDFF; [place], [place]; 11/01/2015 History of hysterectomy Family History Mother Cancer Heart disease Social History Smoking and tobacco status: current every day smoker Alcohol intake: never Adopted: No Lives independently: Yes Household members: spouse Marital status: Number of children: 0 Current occupational status: unemployed Current occupational exposures/hazards: No History of recent travel: No Physical Exam Const: COMMON NORMALS: no acute distress and patient oriented x3 GENERAL APPEARANCE: cooperative HENMT: COMMON NORMALS: normocephalic and Normal external nose present HEAD & SCALP: normal to inspection and normocephalic NOSE: Normal external nose present MOUTH: Normal oral and palatal mucosa present THROAT: posterior oropharynx normal Eye: GENERAL EYE: appearance normal, both eyes and all related structures Neck/C-Spine: COMMON NORMALS: full ROM Lymph: LYMPHATIC: no lymphadenopathy noted Chest: COMMONS NORMALS: normal inspection of the chest Resp: COMMON NORMALS: normal respiratory effort EFFORT & INSPECTION: Yes able to speak in complete sentences AUSCULTATION: rhonchi Cardio: COMMON NORMALS: regular rate and regular rhythm RATE: regular rate RHYTHM: regular rhythm GI: COMMON NORMALS: non-tender Back/Pelvis: COMMON NORMALS: thoracic and lumbar spine normal to inspection Extremity: COMMON NORMALS: normal to inspection Neuro: COMMON NORMALS: patient oriented x3 and moves all extremities Psych: COMMON NORMALS: mental status grossly normal and cooperative Skin: COMMON NORMALS: no rashes or lesions noted GENERAL SKIN EXAM: no rashes or lesions noted Course Vital Signs: Vital signs: Vital Signs Temperature 97.9 F 10/08/19 20:29 Pulse Rate 94 10/08/19 21:02 Respiratory Rate 18 10/08/19 21:02 Blood Pressure 112/64 10/08/19 21:02 Pulse Oximetry 94 10/08/19 21:02 MDM - SOB/Dyspnea MDM Narrative: Medical decision making narrative: Patient comes in today for complaints of cough and congestion worse today. Patient does have a history of COPD. Patient was seen by primary care and they recommended further evaluation in the ER for concerns of pneumonia. On exam patient appears in no acute distress. Vital signs are normal. Patient is afebrile. Lung sounds have rhonchi. Differential diagnosis includes but not limited to exacerbation of COPD, pneumonia, respiratory distress. Chest x-ray noted no significant abnormalities. Patient was given albuterol with ipratropium treatment with good results. Patient was injected with 10 mg of dexamethasone and started on doxycycline. Reviewed plan with patient with recommendations for follow-up or return. Patient reported understanding. Discharge Plan Discharge Patient Disposition: Home, Self-Care Clinical Impression: Acute exacerbation of chronic obstructive airways disease Condition: Stable Prescriptions: New doxycycline hyclate 100 mg capsule 100 mg PO BID 10 Days Qty: 20 RF: 0 No Action cannabidiol 100 mg/mL solution PO RF: 0 benztropine 1 mg tablet 1 mg PO .HS Qty: 30 RF: 2 aripiprazole [Abilify] 20 mg tablet 20 mg PO DAILY Qty: 30 RF: 2 sertraline [Zoloft] 100 mg tablet 100 mg PO DAILY Qty: 30 RF: 2 (DME) Wrist Brace Misc See Rx Instructions .ROUTE .MEDSUPPLY Qty: 1 RF: 0 meclizine 25 mg tablet 25 mg PO BID Qty: 20 RF: 0 Ciprodex 0.3-0.1 % drops,suspension 4 drop EAR-BOTH BID 7 Days Qty: 7.5 RF: 0 Symbicort 160-4.5 mcg/actuation HFA aerosol inhaler 2 puff INHALATION Q12H Qty: 10.2 RF: 2 Trulicity 0.75 mg/0.5 mL pen injector 0.75 mg SUBCUT .weekly Qty: 2 RF: 2 lisinopril 2.5 mg tablet 2.5 mg PO QDAY Qty: 30 RF: 2 sucralfate [Carafate] 1 gram tablet 1 gm PO BID Qty: 60 RF: 2 Spiriva with HandiHaler 18 mcg capsule, w/inhalation device 1 cap INHALATION DAILY Qty: 30 RF: 2 tizanidine 2 mg tablet 2 mg PO BID Qty: 60 RF: 2 zonisamide [Zonegran] 25 mg capsule 25 mg PO BID Qty: 60 RF: 2 albuterol sulfate 2.5 mg/0.5 mL solution for nebulization 2.5 mg INHALATION ONCE Qty: 1 RF: 0 doxycycline hyclate 100 mg capsule 100 mg PO BID 7 Days Qty: 14 RF: 0 atorvastatin [Lipitor] 20 mg tablet 20 mg PO QDAY Qty: 30 RF: 2 Hold Instructions: Muscle pain trazodone 150 mg tablet 150 mg PO .QHS Qty: 30 RF: 2 albuterol sulfate [Ventolin HFA] 90 mcg/actuation HFA aerosol inhaler 2 inh INHALATION Q6H PRN (Reason: shortness of breath or wheezing) Qty: 18 RF: 2 ibuprofen 800 mg tablet 800 mg PO TID PRN (Reason: pain) Qty: 30 RF: 0 Tessalon Perles 100 mg capsule 100 mg PO TID PRN (Reason: cough) Qty: 21 RF: 0 Robitussin Cough-Chest Ken DM 5-100 mg/5 mL liquid 10 ml PO Q8H PRN (Reason: cough) Qty: 118 RF: 0 Discharge Orders: Discharge Order (Routine); Ordered 10/08/19 Ordered By: Hunter Loya Referrals: Lucila Thomas, [facility] SPECIALIST-C [Primary Care Provider] - Discharge Diet: Usual diet Discharge Activity: Increase activity as tolerated Patient Instructions: Chronic Bronchitis (ED) Activity Restrictions/Additional Instructions: Take medications as directed with water. Drink plenty of fluids. Continue with routine medications as directed. Use inhaler or nebulizer routinely at least 4 times a day. Follow-up with primary care in 1 week. Return to the ER for worsening symptoms or new concerns. Coding Level of Care Code ED Veterinary Epidemiologist for Chg Fwd Exam Comprehensive
[2019-10-08 20:13] VITALS: PULSE 84; RESP 18; O2SAT 97
[2019-10-08] MEDS: ipratropium-albuterol 3 mL Neb INHALATION (20:13)
[2019-10-08 20:29] VITALS: BP 112/64; PULSE 88; RESP 20; TEMP 36.6
[2019-10-08] MEDS: dexamethasone 10 mg/mL INJ IM (20:59)
[2019-10-08] MEDS: doxycycline 100 mg Tablet PO (21:00)
[2019-10-08 21:02] VITALS: BP 112/64; PULSE 94; RESP 18; O2SAT 94
== END 2019-10-08 21:07 | disposition home or self-care (01) ==
PROVIDERS: Emergency Provider Nurse Practitioner Family; PCP Nurse Practitioner
DX: J44.1 Chronic obstructive pulmonary disease with (acute) exacerbation (principal); E11.9 Type 2 diabetes mellitus without complications; F17.210 Nicotine dependence, cigarettes, uncomplicated
CPT/HCPCS: 12345; 71045; 94640; 96372; 99281; 99283; J1100

== ENCOUNTER → 2019-10-11 08:28 | Outpatient (BNVA) | payer MEDICARE, SELFPAY ==
[2019-10-08 15:52] VITALS: BP 133/71; BMI 25.6
== END ==
PROVIDERS: PCP Nurse Practitioner; Visit Provider Nurse Practitioner Family
DX: J44.1 Chronic obstructive pulmonary disease with (acute) exacerbation (principal); R06.02 Shortness of breath
CPT/HCPCS: 36416; 82962

== ENCOUNTER 2019-10-12 06:00 | Outpatient (RCR) | payer MEDICARE, MEDICAID, SELFPAY ==
[2019-04-20 16:24] VITALS: BP 133/71; BMI 25.6
== END 2019-10-12 23:59 | disposition home or self-care (01) ==
LOC: APT 06:00
PROVIDERS: PCP Nurse Practitioner; Referring Provider Specialist; Visit Provider Specialist
DX: Z98.1 Arthrodesis status (principal); M50.20 Other cervical disc displacement, unspecified cervical region
CPT/HCPCS: 97110; 97163

== ENCOUNTER 2019-10-12 06:00 | Outpatient (RCR) | payer MEDICARE, SELFPAY ==
[2019-04-20 16:24] VITALS: BP 133/71; BMI 25.6
== END 2019-10-12 23:59 | disposition home or self-care (01) ==
LOC: APT 06:00
PROVIDERS: PCP Nurse Practitioner; Referring Provider Nurse Practitioner; Visit Provider Nurse Practitioner
DX: Z98.1 Arthrodesis status (principal); M50.020 Cervical disc disorder with myelopathy, mid-cervical region, unspecified level
CPT/HCPCS: 97110; 97163

== ENCOUNTER 2019-10-13 06:00 | Outpatient (RCR) | payer MEDICARE, SELFPAY | END 2019-11-12 23:59 | disposition home or self-care (01) | LOC: APT 06:00 | PROVIDERS: PCP Nurse Practitioner; Referring Provider Specialist; Visit Provider Specialist | DX: Z98.1 Arthrodesis status (principal); M50.020 Cervical disc disorder with myelopathy, mid-cervical region, unspecified level | CPT/HCPCS: 97110 ==

== ENCOUNTER 2019-10-13 06:00 | Outpatient (RCR) | payer MEDICARE, MEDICAID, SELFPAY | END 2019-11-12 23:59 | disposition home or self-care (01) | LOC: APT 06:00 | PROVIDERS: PCP Nurse Practitioner; Referring Provider Nurse Practitioner; Visit Provider Nurse Practitioner | DX: Z98.1 Arthrodesis status (principal); M50.020 Cervical disc disorder with myelopathy, mid-cervical region, unspecified level | CPT/HCPCS: 97110 ==

== ENCOUNTER → 2019-10-26 07:58 | Outpatient (BNVA) | payer MEDICARE, SELFPAY ==
[2019-10-08 15:52] VITALS: BP 133/71; BMI 25.6
== END ==
PROVIDERS: PCP Nurse Practitioner; Visit Provider Nurse Practitioner
DX: F33.2 Major depressive disorder, recurrent severe without psychotic features (principal); F12.20 Cannabis dependence, uncomplicated; F25.1 Schizoaffective disorder, depressive type
CPT/HCPCS: 99213

== ENCOUNTER → 2019-11-03 08:07 | Outpatient (BNVA) | payer MEDICARE, SELFPAY ==
[2019-10-08 15:52] VITALS: BP 133/71; BMI 25.6
== END ==
PROVIDERS: PCP Nurse Practitioner; Visit Provider Nurse Practitioner
DX: E55.9 Vitamin D deficiency, unspecified (principal); M79.7 Fibromyalgia; Z79.899 Other long term (current) drug therapy
CPT/HCPCS: 82306; 82607; 85025; 85651

== ENCOUNTER → 2019-11-10 10:30 | Outpatient (BNVA) | payer MEDICARE, SELFPAY | PROVIDERS: PCP Nurse Practitioner; Visit Provider Nurse Practitioner | DX: E11.9 Type 2 diabetes mellitus without complications (principal); E78.2 Mixed hyperlipidemia | CPT/HCPCS: 36416; 80053; 80061; 81000; 82962; 83036; 83721; 84443; 85025 ==

== ENCOUNTER 2019-11-29 20:38 | Emergency (ER) | payer MEDICARE, MEDICAID, SELFPAY ==
[2019-11-29 20:47] VITALS: BP 135/71; PULSE 89; RESP 18; TEMP 36.4; O2SAT 98; BMI 28.0
--- NOTE | 2019-11-29 20:57 | XR_ITS ---
WS: [id number] EXAM: AP CHEST: PORTABLE UPRIGHT DATE OF EXAM: 11/29/2019, 2104 hours COMPARISON: Chest x-ray from 10/08/2019 and 12/26/2017 HISTORY: Patient is 54 years old with cough. Prior cervical spine surgery. FINDINGS: The cardiac silhouette is normal in size. The mediastinal contours are normal. The pulmonary vas cularity is normal. Lungs are slightly hyperinflated but otherwise clear. There is no effusion or p neumothorax. Postop fusion plate lower cervical spine. XR/XR chest 1V portable [id number] IMPRESSION: No acute pulmonary disease.
--- NOTE | 2019-11-29 20:57 | ECG_ITS ---
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 Measurements Intervals [place] Rate: 70 P: 60 [place]: 145 QRS: 30 QRSD: 86 T: 44 QT: 357 QTc: 386 Interpretive Statements SINUS RHYTHM Compared to ECG 06/03/2019 13:15:21 Sinus arrhythmia no longer present Electronically Signed On 11-30-2019 13:37:36 CDT by Neymar Blue M.D. [id number]
--- NOTE | 2019-11-29 21:01 | W.ED.GENADLT ---
HPI - General Adult General: Chief complaint: General Medical Stated complaint: coughing up blood Time Seen by Provider: 11/29/19 21:00 History of Present Illness: HPI narrative: Patient is a 54-year-old female who comes to the ED with epigastric pain and blood in emesis. Patient has a past medical history of COPD, GERD and diabetes type 2. Patient says that 2 weeks ago her primary care doctor decreased her omeprazole dose and added sucralfate to help with her GERD symptoms. Patient says that about a week ago she started developing more epigastric pain. She then states that yesterday she had an episode of emesis. Today she complains of only been able to eat crackers and has had approximately 4-5 episodes of emesis that have had some red blood in them. Pain is in the epigastric region and is a burning pain. She rates it a 9 out of 10 currently. She says this is just like previous GERD symptoms she has had in the past. Denies any fever, chills, chest pain, heart palpitations, acute shortness of breath, bladder or bowel symptoms. Associated symptoms: Reports nausea and vomiting; Deny chest pain, dyspnea, headache(s), rash or palpitations Review of Systems Const: Denies: fever(s), chills or fatigue Eyes: Denies: change in vision or eye discomfort ENMT: Denies: throat pain, odynophagia, nasal discharge or nasal congestion Card: Denies: chest pain, palpitations, edema, swelling of feet/ankles, dyspnea on exertion or orthopnea Resp: Denies: dyspnea, productive cough or non-productive cough GI: Reports: abdominal pain (epigastric pain), nausea, vomiting, hematemesis and heartburn; Denies: diarrhea, constipation or hematochezia : Denies: flank pain, dysuria or hematuria Musc: Denies: neck pain, back pain or extremity swelling Skin/Breast: Denies: rash or new lesions Neuro: Denies: headache(s), numbness in extremities or weakness in extremities PFSH ED PFSH: Medical History Cannabis dependence, uncomplicated Cervical disc disorder with myelopathy of mid-cervical region Cervical post-laminectomy syndrome COPD (chronic obstructive pulmonary disease) Diabetes mellitus GERD with esophagitis History of methamphetamine abuse Major depressive disorder, recurrent severe without psychotic features Schizoaffective disorder, depressive type Smoker Surgical History History of angiography Brain June 2019 History of brain surgery June 21, 2019 endovascular treatment of dural AV fistula History of cervical spinal arthrodesis C4-C6 ACDFF; [place], [place]; 11/01/2015 History of hysterectomy Family History Mother Cancer Heart disease Social History Smoking and tobacco status: current every day smoker Second hand smoke exposure: Yes Smoking risk assessment/counseling performed?: Yes Alcohol intake: never Desire information about alcohol rehabilitation?: No Counseling given: No Desire information about substance/drug rehabilitation?: No Counseling given: No Adopted: No Caregiver/support person: No Lives independently: Yes Household members: spouse Marital status: Number of children: 0 service: No Current occupational status: unemployed Current occupational exposures/hazards: No Pets and animals: Yes History of recent travel: No Current gender identity: Female Physical Exam Const: COMMON NORMALS: no acute distress, patient oriented x3 and alert GENERAL APPEARANCE: cooperative and comfortable HENMT: COMMON NORMALS: normocephalic HEAD & SCALP: normocephalic MOUTH: Normal oral and palatal mucosa present THROAT: posterior oropharynx normal and uvula midline Eye: COMMON NORMALS: Equal, round and reactive pupils present PUPIL: Yes Equal, round and reactive pupils present Neck/C-Spine: COMMON NORMALS: supple GENERAL: Yes normal visual inspection Resp: COMMON NORMALS: normal respiratory effort, No retractions, No use of accessory muscles and clear to auscultation bilaterally EFFORT & INSPECTION: Yes able to speak in complete sentences, No tachypneic, No respiratory distress and No labored AUSCULTATION: clear to auscultation bilaterally Cardio: COMMON NORMALS: regular rate, regular rhythm, S1 normal heart sound present, S2 normal heart sound present, No gallops present (Cardio), No clicks present (Cardio), No murmurs present (Cardio) and Peripheral pulses 2+ throughout RATE: regular rate RHYTHM: regular rhythm HEART SOUNDS: S1 normal heart sound present and S2 normal heart sound present PERIPHERAL PULSES: Peripheral pulses 2+ throughout GI: COMMON NORMALS: Normal to inspection, nondistended, normoactive bowel sounds present, Soft to palpation and no masses PALPATION: Yes Soft to palpation and Yes Tenderness to palpation present (GI) Details: other (Epigastric region.) : COMMON NORMALS: Yes no CVA tenderness BLADDER/KIDNEY EXAM: Yes no CVA tenderness Back/Pelvis: COMMON NORMALS: no CVA tenderness Extremity: COMMON NORMALS: normal to inspection and no pedal edema Neuro: COMMON NORMALS: patient oriented x3 and moves all extremities SENSORIUM/ORIENTATION: Yes alert Skin: COMMON NORMALS: no rashes or lesions noted GENERAL SKIN EXAM: no rashes or lesions noted and dry skin Course Reevaluation(s): Reevaluation #1: Patient has had no episodes of emesis while here in the ED. Patient was given a GI cocktail while here in the ED and her symptoms greatly improved. Patient is ready to go home and has a follow-up appointment with her PCP and behavioral health doctor tomorrow. Time: 22:25 Vital Signs: Vital signs: Vital Signs Temperature 97.7 F 11/29/19 23:04 Pulse Rate 80 11/29/19 23:04 Respiratory Rate 16 11/29/19 23:04 Blood Pressure 117/69 11/29/19 23:04 Pulse Oximetry 95 11/29/19 23:04 MDM - General Adult MDM Narrative: Medical decision making narrative: Patient is a 54-year-old female comes to the ED with acid reflux symptoms with some blood in emesis today. Patient states she recently had her omeprazole dose decreased and sucralfate was added. Patient is in no acute distress upon examination. She has some epigastric tenderness upon palpation. White blood cells 10.3 the rest of the CBC, CMP were unremarkable. H. pylori negative. EKG showed normal sinus rhythm with no ST segment elevation or depression seen. Chest x-ray showed no acute findings or infiltrates. Patient had no episodes of emesis while here on the ED and then she was given a GI cocktail and her symptoms improved greatly. Patient has an appointment with her behavioral health doctor and her PCP tomorrow. Patient was discharged and told to follow-up at her PCP and behavioral health doctor at scheduled appointment tomorrow. Patient understood and agreed with plan. Lab Data: Labs: Lab Results 11/29/19 11/29/19 11/29/19 Range/Units 21:25 21:25 21:25 WBC 10.3 H (4.0-10.0) 10^3/ uL RBC 4.48 (4.1-5.3) 10^6/u L Hgb 13.4 (11.5-15.3) g/dL Hct 41.1 (37.0-47.0) % MCV 91.7 (81-99) fL MCH 29.9 (28.0-34.0) pg MCHC 32.6 (30.0-36.0) g/dL RDW 13.4 (12.1-15.1) % Plt Count 313 (130-400) 10^3/c mm MPV 10.5 H (7.4-10.4) fL Neut % (Auto) 49.6 % Lymph % (Auto) 40.4 % [place] % (Auto) 6.5 % Eos % (Auto) 2.2 % Baso % (Auto) 1.0 % Neut # (Auto) 5.09 (1.8-7.7) 10^3/u L Lymph # (Auto) 4.1 (0.8-4.8) 10^3/u L [place] # (Auto) 0.7 (0.2-0.9) 10^3/u L Eos # (Auto) 0.2 (0.0-0.8) 10^3/u L Baso # (Auto) 0.1 (0.0-0.1) 10^3/u L Nucleated RBC % (a uto) 0 % Nucleated RBCs # 0.0 /100WBC PT 13.20 (12.1-14.9) SECO NDS INR 0.97 (0.8-1.2) Sodium 140 (136-145) mmol/L Potassium 3.8 (3.5-5.1) mmol/L Chloride 108 H (98-107) mmol/L Carbon Dioxide 21 L (22-29) mmol/L Anion Gap 14.8 (5-19) BUN 29 H (6-20) mg/dL Creatinine 0.9 (0.5-0.9) mg/dL GFR Calculation 65.2 L (90-130) mL/min Glucose 80 (65-115) mg/dL Calculated Osmolal ity 286 (285-295) mOsm/k g Calcium 9.7 (8.5-10.5) mg/dL Total Bilirubin 0.2 (0.15-1.2) mg/dL AST 17 (0-32) U/L ALT 11 (0-33) U/L Alkaline Phosphata se 69 (35-105) IU/L Total Protein 7.0 (6.6-8.7) g/dL Albumin 4.3 (3.5-5.2) g/dL Globulin 2.7 (1.3-4.6) g/dL H. pylori IgG Anti body (Negative) 11/29/19 Range/Units 21:25 WBC (4.0-10.0) 10^3/ uL RBC (4.1-5.3) 10^6/u L Hgb (11.5-15.3) g/dL Hct (37.0-47.0) % MCV (81-99) fL MCH (28.0-34.0) pg MCHC (30.0-36.0) g/dL RDW (12.1-15.1) % Plt Count (130-400) 10^3/c mm MPV (7.4-10.4) fL Neut % (Auto) % Lymph % (Auto) % [place] % (Auto) % Eos % (Auto) % Baso % (Auto) % Neut # (Auto) (1.8-7.7) 10^3/u L Lymph # (Auto) (0.8-4.8) 10^3/u L [place] # (Auto) (0.2-0.9) 10^3/u L Eos # (Auto) (0.0-0.8) 10^3/u L Baso # (Auto) (0.0-0.1) 10^3/u L Nucleated RBC % (a uto) % Nucleated RBCs # /100WBC PT (12.1-14.9) SECO NDS INR (0.8-1.2) Sodium (136-145) mmol/L Potassium (3.5-5.1) mmol/L Chloride (98-107) mmol/L Carbon Dioxide (22-29) mmol/L Anion Gap (5-19) BUN (6-20) mg/dL Creatinine (0.5-0.9) mg/dL GFR Calculation (90-130) mL/min Glucose (65-115) mg/dL Calculated Osmolal ity (285-295) mOsm/k g Calcium (8.5-10.5) mg/dL Total Bilirubin (0.15-1.2) mg/dL AST (0-32) U/L ALT (0-33) U/L Alkaline Phosphata se (35-105) IU/L Total Protein (6.6-8.7) g/dL Albumin (3.5-5.2) g/dL Globulin (1.3-4.6) g/dL H. pylori IgG Anti body Negative (Negative) Imaging Data^: CXR: Attestation: I personally reviewed and interpreted this imaging study as follows: My impression: Chest x-ray showed no acute findings or infiltrates seen. Pending final radiology report. EKG Data^: EKG 1: Attestation: I personally reviewed and interpreted this EKG as follows: EKG interpretation date: 11/29/19 Interpretation: Normal sinus rhythm, 70 bpm, no ST segment elevation or depression seen. Discharge Plan Discharge Patient Disposition: Home Clinical Impression: Chronic GERD Condition: Stable Prescriptions: No Action cannabidiol 100 mg/mL solution See Rx Instructions .ROUTE .COMPLEX RF: 0 (DME) Wrist Brace Misc See Rx Instructions .ROUTE .MEDSUPPLY Qty: 1 RF: 0 Symbicort 160-4.5 mcg/actuation HFA aerosol inhaler 2 puff INHALATION Q12H Qty: 10.2 RF: 2 Trulicity 0.75 mg/0.5 mL pen injector 0.75 mg SUBCUT .weekly Qty: 2 RF: 2 lisinopril 2.5 mg tablet 2.5 mg PO QDAY Qty: 30 RF: 2 sucralfate [Carafate] 1 gram tablet 1 gm PO BID Qty: 60 RF: 2 Spiriva with HandiHaler 18 mcg capsule, w/inhalation device 1 cap INHALATION DAILY Qty: 30 RF: 2 tizanidine 2 mg tablet 2 mg PO BID Qty: 60 RF: 2 aripiprazole [Abilify] 20 mg tablet 20 mg PO DAILY Qty: 30 RF: 2 benztropine 1 mg tablet 1 mg PO .HS Qty: 30 RF: 2 sertraline [Zoloft] 100 mg tablet 100 mg PO DAILY Qty: 30 RF: 2 trazodone 150 mg tablet 150 mg PO .QHS Qty: 30 RF: 2 zonisamide 50 mg capsule 50 mg PO BID Qty: 60 RF: 2 omeprazole 20 mg capsule,delayed release(DR/EC) 20 mg PO QDAY Qty: 30 RF: 2 magnesium oxide 400 mg magnesium tablet 400 mg PO BID Qty: 60 RF: 0 triamcinolone acetonide 0.1 % ointment 1 applic TOPICAL BID 7 Days Qty: 30 RF: 0 Tylenol 325 mg Tablet 325 - 650 mg PO Q4H PRN (Reason: Pain) RF: 0 Discharge Orders: Discharge Order (Routine); Ordered 11/29/19 Ordered By: Earnest Farias Referrals: Lucila Thomas, PROVIDER RELATIONS SPECIALIST-C [Primary Care Provider] - Discharge Diet: Advance as tolerated and Clear Liquid Discharge Activity: Increase activity as tolerated Patient Instructions: Diet for Ulcers and Gastritis (ED), Gastroesophageal Reflux Disease (ED) Activity Restrictions/Additional Instructions: Follow-up with medical provider at your previously scheduled appointments with your PCP and behavioral health doctor tomorrow. Discussed with your doctors tomorrow about your increasing GERD symptoms over the past week. Start with a clear liquid diet and advance as tolerated. Continue taking all home medications as prescribed. Return to the ER or your medical provider if condition worsens. Please read and understand discharge instructions. If any questions, please ask. At this time patient has no COVID 19 symptoms. She denies any contact with any known positive COVID patients. Discharge Date/Time: 11/29/19 23:06 Coding Level of Care Code ED Baseball Coach for Lenny Fwd Exam Comprehensive
[2019-11-29 21:05] VITALS: PULSE 81; RESP 16; O2SAT 98
[2019-11-29 21:34] LABS: Basophils # 0.1 10^3/uL (0.0-0.1); Eosinophils # 0.2 10^3/uL (0.0-0.8); Eosinophils % 2.2 %; Hematocrit 41.1 % (37.0-47.0); Hemoglobin 13.4 g/dL (11.5-15.3); Lymphocytes # 4.1 10^3/uL (0.8-4.8); Lymphocytes % 40.4 %; Mean Corpuscular HGB Conc 32.6 g/dL (30.0-36.0); Mean Corpuscular Hemoglobin 29.9 pg (28.0-34.0); Mean Corpuscular Volume 91.7 fL (81-99); Mean Platelet Volume 10.5 fL (7.4-10.4); Monocytes # 0.7 10^3/uL (0.2-0.9); Monocytes % 6.5 %; Neutrophils # 5.09 10^3/uL (1.8-7.7); Neutrophils % 49.6 %; Nucleated Red Blood Cells % 0 %; Platelet Count 313 10^3/cmm (130-400); Red Blood Count 4.48 10^6/uL (4.1-5.3); Red Cell Distribution Width 13.4 % (12.1-15.1); White Blood Count 10.3 10^3/uL (4.0-10.0)
[2019-11-29 21:43] LABS: INR 0.97 (0.8-1.2)
[2019-11-29 21:49] LABS: Alanine Aminotransferase 11 U/L (0-33); Albumin Level 4.3 g/dL (3.5-5.2); Alkaline Phosphatase 69 IU/L (35-105); Anion Gap 14.8 (5-19); Aspartate Amino Transferase 17 U/L (0-32); Blood Urea Nitrogen 29 mg/dL (6-20); Calcium 9.7 mg/dL (8.5-10.5); Carbon Dioxide 21 mmol/L (22-29); Chloride 108 mmol/L (98-107); Globulin 2.7 g/dL (1.3-4.6); Glomerular Filtration Rate 65.2 mL/min (90-130); Glucose 80 mg/dL (65-115); Osmolality Calculated 286 mOsm/kg (285-295); Potassium 3.8 mmol/L (3.5-5.1); Sodium 140 mmol/L (136-145); Total Bilirubin 0.2 mg/dL (0.15-1.2)
[2019-11-29] MEDS: sodium chloride 0.9% 500 ML IV (21:54)
[2019-11-29] MEDS: lidocaine 2% viscous 15 ML, aluminum-mag hydrox-simethicon 30 ML, sucralfate oral liq 1 GM PO (21:55)
[2019-11-29] MEDS: ondansetron 2 mg/ML SDV 2 mL 4 MG IVP (21:55)
[2019-11-29 22:00] VITALS: BP 120/58; PULSE 82; RESP 16; O2SAT 97
[2019-11-29 22:27] LABS: H. Pylori IgG Antibody Negative (Negative)
[2019-11-29 23:04] VITALS: BP 117/69; PULSE 80; RESP 16; TEMP 36.5; O2SAT 95
== END 2019-11-29 23:06 | disposition home or self-care (01) ==
PROVIDERS: Emergency Medicine; Emergency Provider Physician Assistant; PCP Nurse Practitioner
DX: K21.9 Gastro-esophageal reflux disease without esophagitis (principal); Z79.4 Long term (current) use of insulin; F17.210 Nicotine dependence, cigarettes, uncomplicated; J44.9 Chronic obstructive pulmonary disease, unspecified; E11.9 Type 2 diabetes mellitus without complications
CPT/HCPCS: 12345; 71045; 80053; 85025; 85610; 86677; 93005; 96361; 96374; 99282; 99284; J2405; J7040

== ENCOUNTER → 2019-11-30 08:08 | Outpatient (BNVA) | payer MEDICARE, SELFPAY | PROVIDERS: PCP Nurse Practitioner; Visit Provider Nurse Practitioner | DX: F33.2 Major depressive disorder, recurrent severe without psychotic features (principal); F12.20 Cannabis dependence, uncomplicated; F25.1 Schizoaffective disorder, depressive type; E11.9 Type 2 diabetes mellitus without complications | CPT/HCPCS: 81000; 99214 ==

== ENCOUNTER 2019-12-03 12:23 | Observation (INO) | payer MEDICARE, MEDICAID, SELFPAY ==
[2019-12-03] VITALS (69 sets, daily range): BP systolic 85–155; BP diastolic 51–98; PULSE 67–108; RESP 10–27; TEMP 36.5–36.9; O2SAT 88–99; BMI 28.3; BMI 28.5
--- NOTE | 2019-12-03 | CT_ITS ---
WS: [id number] CT HEAD NONCONTRAST HISTORY: POSSIBLE STROKE RIGHT SIDE WEAKNESS WITH FACIAL DROOP TECHNIQUE: Contiguous axial imaging performed through the brain in 2.5 mm imaging. Bone and soft tiss ue windows. Sagittal and coronal reformats reviewed. All CT scans at [facility] use at le ast one of these dose optimization techniques: automated exposure control; mA and/or kV adjustment pe r patient size (includes targeted exams where dose is matched to clinical indication); or iterative r econstruction. DLP: 740.31 mGy-cm. COMPARISON: 07/30/2019 No acute intracranial hemorrhage, midline shift or mass effect. No atrophy or prior infarcts or herniation. Embolization coils are noted along the RIGHT middle cran ial fossa and cavernous sinus and frontal lobe from prior embolization of a vascular anomaly. There i s some artifact at the skull base and posterior fossa. No acute infarct is identified by CT. There ar e areas of decreased attenuation which are likely chronic microvascular changes. Small lacunar infarc t anterior limb of the RIGHT internal capsule. Ventricles: Normal size with no hydrocephalus. No inferior displacement of the cerebellar tonsils. Paranasal sinuses: As visualized are clear. Mastoid air cells: Well pneumatized. Calvarium and scalp: Skull is intact with no soft tissue edema or swelling. Notified Hunter Salazar DO at 12/03/2019 12:[address]/CT head wo con* [id number] IMPRESSION: 1. No acute intracranial hemorrhage or edema. 2. Prior embolization coils are noted secondary to treatment of what has been described as an AV fistula.
--- NOTE | 2019-12-03 12:36 | ECG_ITS ---
[facility] Test Date: 2019-12-03 Pat Name: Brenna Francisco Department: Room: Gender: Female Permastone Installer: : 1965 Requested By: Hunter Storm Order Number: [id number] Sydnee MD: Neymar Blue M.D. Measurements Intervals [place] Rate: 74 P: 68 TN: 147 QRS: 44 QRSD: 81 T: 57 QT: 360 QTc: 402 Interpretive Statements SINUS RHYTHM Compared to ECG 11/29/2019 21:07:46 No significant changes Electronically Signed On 12-04-2019 19:35:44 CDT by Neymar Blue M.D. [id number]
--- NOTE | 2019-12-03 12:51 | CT_ITS ---
WS: [id number] CT ANGIOGRAM CEREBRAL AND CAROTID ARTERIES HISTORY: CVA TECHNIQUE: CT angiogram is performed of the carotid and cerebral arteries. During arterial injection imaging is obtained from the skull vertex to the aortic arch in 1.25 mm imaging. Coronal and sagittal reformats are submitted. Additional multi planar reformats of the carotid and cerebral arteries are submitted, MIP imaging also reviewed. NASCET criteria utilized. All CT scans at [facility] use at least one of these dose optimization techniques: automated exposure control; mA and/or kV ad justment per patient size (includes targeted exams where dose is matched to clinical indication); or iterative reconstruction. CONTRAST: Omnipaque 350; 95 mL IV. DLP: 2071.43 mGy.cm COMPARISON: 10/10/2018 Carotid Angiogram: Right carotid: Common carotid artery: Arises normally from the innominate artery. No significant plaque or stenosis. Internal carotid artery: No plaque or stenosis. External carotid artery: Patent. Left carotid: Common carotid artery: Arises normally from the aorta. No significant plaque or stenosis. Internal carotid artery: No plaque or stenosis. External carotid artery: Patent. Right vertebral artery: Unremarkable. Left vertebral artery: Small caliber but patent. Subclavian arteries: No stenosis or significant abnormality. Upper thorax: Normal. Thyroid gland: Normal. Osseous structures: Prior anterior cervical fusion from C4 to C6. Osteophytes extend posteriorly and encroach upon the ventral cord. CEREBRAL ANGIOGRAM: Intracranial vertebral arteries: Normal with no significant atherosclerosis. Basilar artery: No significant stenosis or occlusion. No aneurysm. Intracranial Internal carotid arteries: Demonstrates no significant stenosis or plaque. Middle cerebral arteries: Normal. Anterior cerebral arteries and ACOM: Normal. Posterior cerebral arteries and PCOM's: Normal. 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 By hist ory patient's undergone embolization and clip and 11 AV fistula. The large draining vein within the i nferior portion of the RIGHT frontal lobe is thrombosed. Mastoid air cells: Normal. Paranasal sinuses: Normal. Calvarium: Normal. CT/CT angio headneck* [id number] IMPRESSION: 1. Normal carotid arteries. 2. No occlusions or stenosis [place] of [place]. 3. 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 No adjacent hemorrhage.
[2019-12-03 12:57] LABS: Basophils # 0.2 10^3/uL (0.0-0.1); Basophils % 1.5 %; Eosinophils # 0.2 10^3/uL (0.0-0.8); Eosinophils % 2.1 %; Hematocrit 46.8 % (37.0-47.0); Hemoglobin 14.6 g/dL (11.5-15.3); Lymphocytes # 3.7 10^3/uL (0.8-4.8); Lymphocytes % 36.7 %; Mean Corpuscular HGB Conc 31.2 g/dL (30.0-36.0); Mean Corpuscular Hemoglobin 29.7 pg (28.0-34.0); Mean Corpuscular Volume 95.1 fL (81-99); Mean Platelet Volume 10.6 fL (7.4-10.4); Monocytes # 0.6 10^3/uL (0.2-0.9); Monocytes % 6.1 %; Neutrophils # 5.46 10^3/uL (1.8-7.7); Neutrophils % 53.4 %; Nucleated Red Blood Cells % 0 %; Platelet Count 335 10^3/cmm (130-400); Red Blood Count 4.92 10^6/uL (4.1-5.3); Red Cell Distribution Width 13.4 % (12.1-15.1); White Blood Count 10.2 10^3/uL (4.0-10.0)
[2019-12-03 13:01] LABS: Glucose Point of Care 86 mg/dL (70-110)
--- NOTE | 2019-12-03 13:09 | PM.SAN ---
Stroke Alert Activation Last Known Normal/at Baseline: 2-3 hours ago (10:30 texting, acute onset right arm and leg weakness) Stroke Alert Activated by: EMS at 11:47a Stroke Alert Activation Date: 12/03/19 Stroke Alert Activation Time: 11:47 Stroke MD @ Bedside Date: 12/03/19 NIH stroke score NIHSS: Level Of Consciousness - 1a: 0 Level Of Consciousness Questions - 1b: Both Correct Level Of Consciousness Commands - 1c: Both Correct Best Gaze - 2: Normal Visual Goodrich - 3: No Visual Loss Facial Palsy - 4: Partial Paralysis Motor Arm Right - 5: No Effort Against [place] Motor Arm Left - 5: No Drift Motor Leg Right - 6: No Effort Against [place] Motor Leg Left - 6: No Drift Limb Ataxia - 7: Absent Sensory - 8: Mild To Moderate Loss Best Language - 9: No Aphasia Dysarthia - 10: Mild/Moderate Dysarthia Extinction And Inattention - 11: 0 Score: Total Score: 10 Stroke Alert Data/Treatment Other Information: The patient had acute onset right F/A/L weakness and sensory deficit with an initial NIHSS of 10, her deficits were more pronoucned after arrival with more dense hemiplegia, but a stable NIHSS. She has a left hemispheric acute cerebral infarct. She had a recent (june 2019) dural av fistula coil in [place]. She is uncertain as to if she had hemorrhage. There is no hemorrhage on the present CT. Given the severity and progression of her deficits I have recommended a CTA with consideration for endovascualar treatment. The dural AV fistula is likely secured by the coil and with out evidence for current hemorrhage would not explain her present dense hemiplegia. We have discussed with the patient the rationale for thrombolytic therapy and potentially endovascular treatment if a LVO is identified. She accepts a small risk of intracranial hemorrhage with the hope of improving her current severe stroke deficits. Dr Salazar has contacted the interventionalist and is attempting to clarify the nature of her prior procedure. Critical Care Time Critical Care Time: 30 - 74 mins Coding Level of Care Code Acute Hand Ii Cutter for Lenny Winn
--- NOTE | 2019-12-03 13:13 | ED_ITS ---
HPI - Neuro Symptoms/Deficit General: Chief Complaint: Neuro Symptoms/Deficit Stated Complaint: Stroke alert Time Seen by Provider: 12/03/19 12:35 History of Present Illness: HPI Narrative: 54-year-old female presents emergency room via EMS 2 hours after onset of symptoms she has severe right- sided weakness and right facial paralysis. She states symptoms began around 1030. On arrival here CTA was done and NIH score done. Patient is able to provide history can recall the onset of her symptoms she was texting on her couch at the time her came home and found her with a severe deficits and called EMS. She never had any loss consciousness she denies chest pain no recent illness. Onset (ago): hour(s) Last Observed Normal: 10:30 Timing confirmed by: spouse Location: speech, right face, dysarthria, right arm, right leg and ataxia History of same: Yes Severity: severe Quality: weak and numb Relieving factors: none Exacerbating factors: none Associated symptoms: Reports no associated symptoms, tingling and weakness; Deny chest pain, cough, diaphoresis, fevers/chills, headache(s), anorexia, malaise, nausea, seizures, syncope, vertigo or vomiting Treatments Prior to Arrival: none Review of Systems Const: Denies: malaise or diaphoresis ENMT: Denies: throat pain, ear or mastoid pain, nasal discharge or nasal congestion Card: Denies: chest pain or syncope Resp: Denies: dyspnea, productive cough or non-productive cough GI: Denies: nausea or vomiting : Denies: flank pain, difficulty voiding, dysuria, urinary frequency or urinary urgency Skin/Breast: Denies: rash or pruritus Neuro: Denies: headache(s) or vertigo PFSH ED PFSH: Medical History Cannabis dependence, uncomplicated Cervical disc disorder with myelopathy of mid-cervical region Cervical post-laminectomy syndrome COPD (chronic obstructive pulmonary disease) Diabetes mellitus GERD with esophagitis History of methamphetamine abuse Major depressive disorder, recurrent severe without psychotic features Schizoaffective disorder, depressive type Smoker Surgical History History of angiography Brain June 2019 History of brain surgery June 21, 2019 endovascular treatment of dural AV fistula History of cervical spinal arthrodesis C4-C6 ACDFF; [place], [place]; 11/01/2015 History of hysterectomy Family History Mother Cancer Heart disease Social History Smoking and tobacco status: current every day smoker Second hand smoke exposure: Yes Smoking risk assessment/counseling performed?: Yes Alcohol intake: never Desire information about alcohol rehabilitation?: No Counseling given: No Desire information about substance/drug rehabilitation?: No Counseling given: No Adopted: No Caregiver/support person: No Lives independently: Yes Household members: spouse Marital status: Number of children: 0 service: No Current occupational status: unemployed Current occupational exposures/hazards: No Pets and animals: Yes History of recent travel: No Current gender identity: Female NIH stroke score NIHSS: Level Of Consciousness - 1a: 0 Level Of Consciousness Questions - 1b: Both Correct Level Of Consciousness Commands - 1c: Both Correct Best Gaze - 2: Normal Visual Goodrich - 3: No Visual Loss Facial Palsy - 4: Partial Paralysis Motor Arm Right - 5: Effort Against [place] Motor Arm Left - 5: No Drift Motor Leg Right - 6: Effort Against [place] Motor Leg Left - 6: No Drift Limb Ataxia - 7: Present In Two Limbs Sensory - 8: Mild To Moderate Loss Best Language - 9: No Aphasia Dysarthia - 10: Mild/Moderate Dysarthia Extinction And Inattention - 11: 0 Score: Total Score: 10 Physical Exam Const: COMMON NORMALS: no acute distress GENERAL APPEARANCE: cooperative and comfortable ORIENTATION/CONSCIOUSNESS: Yes awake, Yes oriented to person, Yes oriented to place and Yes oriented to time HENMT: COMMON NORMALS: normocephalic, atraumatic and hearing grossly normal bilaterally HEAD & SCALP: normocephalic and atraumatic Eye: COMMON NORMALS: Equal, round and reactive pupils present, EOMs intact bilaterally, conjunctivae normal and no scleral icterus CONJUNCTIVA: Yes conjunctivae normal PUPIL: Yes Equal, round and reactive pupils present Neck/C-Spine: COMMON NORMALS: full ROM, no lymphadenopathy, supple and no JVD Lymph: LYMPHATIC: no lymphadenopathy noted and no lymphedema noted Resp: COMMON NORMALS: normal respiratory effort, No retractions, No use of accessory muscles and clear to auscultation bilaterally AUSCULTATION: clear to auscultation bilaterally Cardio: COMMON NORMALS: no JVD, regular rate, regular rhythm and No murmurs present (Cardio) RATE: regular rate RHYTHM: regular rhythm GI: COMMON NORMALS: Soft to palpation and No hepatosplenomegaly present AUSCULTATION: Yes normoactive bowel sounds PALPATION: Yes Soft to palpation, No Tenderness to palpation present (GI), No Guarding due to palpation present (GI) and Yes No hepatosplenomegaly present Extremity: COMMON NORMALS: normal to inspection, capillary refill normal, no clubbing, cyanosis or edema, no calf tenderness and no pedal edema Neuro: SENSORIUM/ORIENTATION: Yes oriented to person, Yes oriented to place and Yes oriented to time Skin: COMMON NORMALS: no rashes or lesions noted GENERAL SKIN EXAM: no rashes or lesions noted Course Vital Signs: Vital signs: Vital Signs Temperature 98.8 F 12/04/19 15:40 Pulse Rate 99 12/04/19 15:40 Respiratory Rate 24 H 12/04/19 15:40 Blood Pressure 148/85 12/04/19 15:40 Pulse Oximetry 94 12/04/19 15:40 MDM - Neuro Symptoms/Deficit MDM Narrative: Medical decision making narrative: There was a significant delay in giving TPA. There were 2 reasons for this first the patient was hesitant to consent to TPA without us confirming from Dr. bay that it was okay given her previous procedure in the last few months. Dr. Etienne reviewed the films he felt it was likely okay we were able to get a hold of Dr. bay he consented additionally patient also wanted to discuss with family members she has a mother who is a nurse evidently lives in [place]. Once she found out that Dr. bay had agreed that it was okay to use her usual protocols to give she did decide at that point to go ahead and consent to the TPA. Because Dr. bay was not on-call and actually out of the office it did take some sign ificant amount of time to contact him and for his office staff to relate the message since he was not in the office and him to call us back. We were able to start the TPA within the 3-hour window and then a CTA is done. Within 30 minutes of starting the TPA patient had nearly complete resolution of all of her symptoms. She had no signs of bleeding. However she did pull out her IV nurses restarted IV and applied direct pressure bandage to the old IV site. Lab Data: Labs: Lab Results 12/03/19 12/03/19 12/03/19 Range/Units 12:33 12:52 12:52 WBC 10.2 H (4.0-10.0) 10^3/ uL RBC 4.92 (4.1-5.3) 10^6/u L Hgb 14.6 (11.5-15.3) g/dL Hct 46.8 (37.0-47.0) % MCV 95.1 (81-99) fL MCH 29.7 (28.0-34.0) pg MCHC 31.2 (30.0-36.0) g/dL RDW 13.4 (12.1-15.1) % Plt Count 335 (130-400) 10^3/c mm MPV 10.6 H (7.4-10.4) fL Neut % (Auto) 53.4 % Lymph % (Auto) 36.7 % [place] % (Auto) 6.1 % Eos % (Auto) 2.1 % Baso % (Auto) 1.5 % Neut # (Auto) 5.46 (1.8-7.7) 10^3/u L Lymph # (Auto) 3.7 (0.8-4.8) 10^3/u L [place] # (Auto) 0.6 (0.2-0.9) 10^3/u L Eos # (Auto) 0.2 (0.0-0.8) 10^3/u L Baso # (Auto) 0.2 H (0.0-0.1) 10^3/u L Nucleated RBC % (a uto) 0 % Nucleated RBCs # 0.0 /100WBC PT 12.70 (12.1-14.9) SECO NDS INR 0.93 (0.8-1.2) APTT 27.1 (23.9-36.7) SECO NDS Sodium (136-145) mmol/L Potassium (3.5-5.1) mmol/L Chloride (98-107) mmol/L Carbon Dioxide (22-29) mmol/L Anion Gap (5-19) BUN (6-20) mg/dL Creatinine (0.5-0.9) mg/dL GFR Calculation (90-130) mL/min Glucose (65-115) mg/dL POC Glucose 86 (70-110) mg/dL Estimat Average Gl ucose Hemoglobin A1c (4.0-6.0) % Calculated Osmolal ity (285-295) mOsm/k g Calcium (8.5-10.5) mg/dL Total Bilirubin (0.15-1.2) mg/dL AST (0-32) U/L ALT (0-33) U/L Alkaline Phosphata se (35-105) IU/L Total Protein (6.6-8.7) g/dL Albumin (3.5-5.2) g/dL Globulin (1.3-4.6) g/dL Triglycerides (0-150) mg/dL Cholesterol (0-200) mg/dL LDL Cholesterol, C alc (50-129) mg/dL HDL Cholesterol (60-100) mg/dL LDL/HDL Ratio (0.00-3.22) RATI O Cholesterol/HDL Ra westley (0.0-4.40) mg/dL Urine Color (Yellow) Urine Appearance (CLEAR) Urine pH (5-7) Ur Specific Gravit y (1.005-1.030) Urine Protein (Negative) Urine Glucose (UA) (Normal) Urine Ketones (Negative) Urine Blood (Negative) Urine Nitrate (Negative) Urine Bilirubin (NEGATIVE) Urine Urobilinogen (Negative) mg/dL Ur Leukocyte Marisa ase (Negative) Urine Opiates Scre en (Negative) ng/mL Ur Barbiturates Sc reen (Negative) ng/mL Ur Phencyclidine S crn (Negative) ng/mL Ur Amphetamines Sc reen (Negative) ng/mL U Benzodiazepines Scrn (Negative) ng/mL Urine Cocaine Scre en (Negative) ng/mL U Marijuana (THC) Screen (Negative) ng/mL 12/03/19 12/03/19 12/03/19 Range/Units 12:52 12:52 13:04 WBC (4.0-10.0) 10^3/ uL RBC (4.1-5.3) 10^6/u L Hgb (11.5-15.3) g/dL Hct (37.0-47.0) % MCV (81-99) fL MCH (28.0-34.0) pg MCHC (30.0-36.0) g/dL RDW (12.1-15.1) % Plt Count (130-400) 10^3/c mm MPV (7.4-10.4) fL Neut % (Auto) % Lymph % (Auto) % [place] % (Auto) % Eos % (Auto) % Baso % (Auto) % Neut # (Auto) (1.8-7.7) 10^3/u L Lymph # (Auto) (0.8-4.8) 10^3/u L [place] # (Auto) (0.2-0.9) 10^3/u L Eos # (Auto) (0.0-0.8) 10^3/u L Baso # (Auto) (0.0-0.1) 10^3/u L Nucleated RBC % (a uto) % Nucleated RBCs # /100WBC PT (12.1-14.9) SECO NDS INR (0.8-1.2) APTT (23.9-36.7) SECO NDS Sodium 140 (136-145) mmol/L Potassium 3.9 (3.5-5.1) mmol/L Chloride 108 H (98-107) mmol/L Carbon Dioxide 20 L (22-29) mmol/L Anion Gap 15.9 (5-19) BUN 20 (6-20) mg/dL Creatinine 0.8 (0.5-0.9) mg/dL GFR Calculation 74.7 L (90-130) mL/min Glucose 91 (65-115) mg/dL POC Glucose (70-110) mg/dL Estimat Average Gl ucose 126 Hemoglobin A1c 6.0 (4.0-6.0) % Calculated Osmolal ity 286 (285-295) mOsm/k g Calcium 10.1 (8.5-10.5) mg/dL Total Bilirubin 0.2 (0.15-1.2) mg/dL AST 18 (0-32) U/L ALT 12 (0-33) U/L Alkaline Phosphata se 83 (35-105) IU/L Total Protein 7.8 (6.6-8.7) g/dL Albumin 4.3 (3.5-5.2) g/dL Globulin 3.5 (1.3-4.6) g/dL Triglycerides 261 H (0-150) mg/dL Cholesterol 166 (0-200) mg/dL LDL Cholesterol, C alc 67 (50-129) mg/dL HDL Cholesterol 47 L (60-100) mg/dL LDL/HDL Ratio 1.43 (0.00-3.22) RATI O Cholesterol/HDL Ra westley 3.53 (0.0-4.40) mg/dL Urine Color (Yellow) Urine Appearance (CLEAR) Urine pH (5-7) Ur Specific Gravit y (1.005-1.030) Urine Protein (Negative) Urine Glucose (UA) (Normal) Urine Ketones (Negative) Urine Blood (Negative) Urine Nitrate (Negative) Urine Bilirubin (NEGATIVE) Urine Urobilinogen (Negative) mg/dL Ur Leukocyte Marisa ase (Negative) Urine Opiates Scre en (Negative) ng/mL Ur Barbiturates Sc reen (Negative) ng/mL Ur Phencyclidine S crn (Negative) ng/mL Ur Amphetamines Sc reen (Negative) ng/mL U Benzodiazepines Scrn (Negative) ng/mL Urine Cocaine Scre en (Negative) ng/mL U Marijuana (THC) Screen (Negative) ng/mL 12/03/19 12/03/19 Range/Units 14:10 14:10 WBC (4.0-10.0) 10^3/ uL RBC (4.1-5.3) 10^6/u L Hgb (11.5-15.3) g/dL Hct (37.0-47.0) % MCV (81-99) fL MCH (28.0-34.0) pg MCHC (30.0-36.0) g/dL RDW (12.1-15.1) % Plt Count (130-400) 10^3/c mm MPV (7.4-10.4) fL Neut % (Auto) % Lymph % (Auto) % [place] % (Auto) % Eos % (Auto) % Baso % (Auto) % Neut # (Auto) (1.8-7.7) 10^3/u L Lymph # (Auto) (0.8-4.8) 10^3/u L [place] # (Auto) (0.2-0.9) 10^3/u L Eos # (Auto) (0.0-0.8) 10^3/u L Baso # (Auto) (0.0-0.1) 10^3/u L Nucleated RBC % (a uto) % Nucleated RBCs # /100WBC PT (12.1-14.9) SECO NDS INR (0.8-1.2) APTT (23.9-36.7) SECO NDS Sodium (136-145) mmol/L Potassium (3.5-5.1) mmol/L Chloride (98-107) mmol/L Carbon Dioxide (22-29) mmol/L Anion Gap (5-19) BUN (6-20) mg/dL Creatinine (0.5-0.9) mg/dL GFR Calculation (90-130) mL/min Glucose (65-115) mg/dL POC Glucose (70-110) mg/dL Estimat Average Gl ucose Hemoglobin A1c (4.0-6.0) % Calculated Osmolal ity (285-295) mOsm/k g Calcium (8.5-10.5) mg/dL Total Bilirubin (0.15-1.2) mg/dL AST (0-32) U/L ALT (0-33) U/L Alkaline Phosphata se (35-105) IU/L Total Protein (6.6-8.7) g/dL Albumin (3.5-5.2) g/dL Globulin (1.3-4.6) g/dL Triglycerides (0-150) mg/dL Cholesterol (0-200) mg/dL LDL Cholesterol, C alc (50-129) mg/dL HDL Cholesterol (60-100) mg/dL LDL/HDL Ratio (0.00-3.22) RATI O Cholesterol/HDL Ra westley (0.0-4.40) mg/dL Urine Color Straw (Yellow) Urine Appearance Clear (CLEAR) Urine pH 5.0 (5-7) Ur Specific Gravit y 1.005 (1.005-1.030) Urine Protein Neg (Negative) Urine Glucose (UA) Norm (Normal) Urine Ketones Negative (Negative) Urine Blood Neg (Negative) Urine Nitrate Negative (Negative) Urine Bilirubin Neg (NEGATIVE) Urine Urobilinogen Norm (Negative) mg/dL Ur Leukocyte Marisa ase Negative (Negative) Urine Opiates Scre en Negative (Negative) ng/mL Ur Barbiturates Sc reen Negative (Negative) ng/mL Ur Phencyclidine S crn Negative (Negative) ng/mL Ur Amphetamines Sc reen Negative (Negative) ng/mL U Benzodiazepines Scrn Negative (Negative) ng/mL Urine Cocaine Scre en Negative (Negative) ng/mL U Marijuana (THC) Screen Positive H (Negative) ng/mL Discharge Plan Discharge Patient Disposition: Admitted As Inpatient Admit Provider: Susan Blackburn Clinical Impression: Acute ischemic stroke Condition: Stable Discharge Diet: Cardiac, Diabetic, Low Cholesterol and Low Fat Discharge Activity: Resume usual activity and As per PT/OT instructions Interventions: ED Discharge Assessment Last Done: 12/03/19 15:43 ED Charges Last Done: 12/03/19 15:43 Discharge Date/Time: 12/03/19 15:45 Coding Level of Care Code ED Research Investigator for Lenny Fwd Exam Comprehensive
[2019-12-03 13:14] LABS: Alanine Aminotransferase 12 U/L (0-33); Albumin Level 4.3 g/dL (3.5-5.2); Alkaline Phosphatase 83 IU/L (35-105); Blood Urea Nitrogen 20 mg/dL (6-20); Calcium 10.1 mg/dL (8.5-10.5); Carbon Dioxide 20 mmol/L (22-29); Chloride 108 mmol/L (98-107); Globulin 3.5 g/dL (1.3-4.6); Glomerular Filtration Rate 74.7 mL/min (90-130); Glucose 91 mg/dL (65-115); Osmolality Calculated 286 mOsm/kg (285-295); Sodium 140 mmol/L (136-145); Total Bilirubin 0.2 mg/dL (0.15-1.2); Total Protein 7.8 g/dL (6.6-8.7)
[2019-12-03 13:18] LABS: Anion Gap 15.9 (5-19); Aspartate Amino Transferase 18 U/L (0-32); Potassium 3.9 mmol/L (3.5-5.1)
[2019-12-03 13:24] LABS: INR 0.93 (0.8-1.2); Partial Thromboplastin Time 27.1 SECONDS (23.9-36.7)
[2019-12-03] MEDS: iohexol 350 mg/mL 100 mL Btl IV (13:27)
[2019-12-03 14:26] LABS: Add Urine Microscopic? NO
[2019-12-03 14:28] LABS: Bilirubin Urine Neg (NEGATIVE); Blood Urine Neg (Negative); Glucose Urine UA Norm (Normal); Ketones Urine Negative (Negative); Leukocyte Esterase Urine Negative (Negative); Nitrate Urine Negative (Negative); Protein Urine Neg (Negative); Specific Gravity, Urine 1.005 (1.005-1.030); Urine Appearance Clear (CLEAR); Urine Color Straw (Yellow); Urobilinogen Urine Norm (Negative)
[2019-12-03 14:38] LABS: Amphetamines Screen Urine Negative (Negative); Barbiturates Screen Urine Negative (Negative); Benzodiazepines Screen Urine Negative (Negative); Cocaine Screen Urine Negative (Negative); Opiate Screen Urine Negative (Negative); PCP Screen Urine Negative (Negative); THC Screen Urine Positive (Negative)
--- NOTE | 2019-12-03 15:28 | P.HP_ITS ---
Providers/Chief Complaint Admitting Physician: Susan Blackburn MD Primary Care Provider: Lucila Thomas, [employer] Chief Complaint: Stroke alert History of Present Illness Brenna Francisco is a 54 year old female with PMH COPD, multiple neuralgias, DM, GERD, h/o substance abuse, schizoaffective disorder, cerebral AVM with endovascular treatment 06/2019 prsenetd to ER today with dense left side hemiparesis starting at 10:30am , NIHSS 10 at presentation. She was seen by neurology Dr. schwartz and case was discussed with her neurointervention neurologist Dr. bay in [place] and it was decided to proceed with tPA. her deficits have nearly resolved at this time. Her strength has improved and facial asymmetry is nearly resolved. She is being admitted to ICU for post tPA monitoring. Review of Systems General: Reports: 10 or more systems reviewed and unremarkable except in HPI and below Const: Denies: fever(s), chills or body aches Eyes: Denies: change in vision, blurry vision or photophobia ENMT: Reports: hoarseness; Denies: throat pain, enlarged tonsils, odynophagia or nasal congestion Card: Denies: chest pain, palpitations, irregular heart rhythm, edema, swelling of feet/ankles, lightheadedness, pre-syncope, dyspnea on exertion or orthopnea Resp: Denies: dyspnea, productive cough, non-productive cough, wheezing, stridor, pain on inspiration, change in phlegm color, hemoptysis or chest congestion GI: Denies: abdominal pain, nausea, vomiting, hematemesis, coffee ground emesis, dysphagia, heartburn, diarrhea, constipation, GI cramping, change in stool character, hematochezia or melena : Denies: flank pain, difficulty voiding, dysuria, urinary frequency, urinary urgency, urinary hesitancy or hematuria Musc: Denies: neck pain, back pain, extremity pain, joint swelling, joint warmth or deformity Neuro: Denies: headache(s), numbness in extremities, weakness in extremities, sensory changes, difficulty walking, frequent falls, dizziness, vertigo, behavioral changes, Slurred speech present or seizure-like activity Psych: Denies: anxiety, depression, suicidal ideation or homicidal ideation Endo: Denies: polyuria, polydipsia, tired all the time, cold intolerance or hot flashes Pablo/Lymph: Denies: easy bruising or easy bleeding Medications/Allergies Home Medications Medication Instructions Recorded Confirmed Last Taken Type budesonide-formoterol HFA 160 2 puff INHALATION Q12H #10.2 gm 09/28/19 12/03/19 12/03/19 Rx mcg-4.5 mcg/actuation aerosol inhaler sucralfate 1 gram tablet 1 gm PO BID #60 tab 10/01/19 12/03/19 12/03/19 Rx tiotropium bromide 18 mcg capsule 1 cap INHALATION DAILY #30 inh 10/01/19 12/03/19 11/29/19 Rx with inhalation device tizanidine 2 mg tablet 2 mg PO BID #60 tab 10/01/19 12/03/19 12/03/19 Rx aripiprazole 20 mg tablet 20 mg PO DAILY #30 tab 10/26/19 12/03/19 12/03/19 Rx sertraline 100 mg tablet 100 mg PO DAILY #30 tab 10/26/19 12/03/19 12/03/19 Rx magnesium oxide 400 mg PO BID #60 tab 10/28/19 12/03/19 12/03/19 Rx zonisamide 50 mg capsule 50 mg PO BID #60 cap 10/28/19 12/03/19 12/03/19 Rx acetaminophen [Tylenol] 325 - 650 mg PO Q4H PRN 11/29/19 12/03/19 12/02/19 History 2 tabs erythromycin 5 mg/gram (0.5 %) eye 1 applic OPHTHALMIC (EYE) Q12H #1 12/02/19 12/03/19 Unknown Rx ointment (3.5 gram tube) gm Cbd Oil See Rx Instructions .ROUTE .COMPLEX 12/03/19 12/03/19 Unknown History Remeron 15 mg PO BEDTIME 12/03/19 12/03/19 12/02/19 History albuterol sulfate [ProAir HFA] 2 puff INHALATION Q6H PRN 12/03/19 12/03/19 Unknown History benztropine 1 mg PO BEDTIME 12/03/19 12/03/19 12/02/19 History dulaglutide [Trulicity] 0.75 mg SUBCUT Q7D 12/03/19 12/03/19 12/02/19 History fenofibrate nanocrystallized 145 mg PO DAILY 12/03/19 12/03/19 Unknown History gabapentin 300 mg PO BEDTIME 12/03/19 12/03/19 Unknown History lisinopril 2.5 mg PO DAILY 12/03/19 12/03/19 12/03/19 History multivitamin [Multiple Vitamins] 1 tab PO DAILY 12/03/19 12/03/19 Unknown History omeprazole 20 mg PO DAILY 12/03/19 12/03/19 12/03/19 History Allergies Allergy/AdvReac Type Severity Reaction Status Date / Time fluoxetine [From Prozac] Allergy rash Verified 11/29/19 20:50 haloperidol [From Haldol] Allergy rash Verified 11/29/19 20:50 Opioids - Morphine Analogues Allergy rash Verified 11/29/19 20:50 oxcarbazepine Allergy rash Verified 11/29/19 20:50 [From Trileptal] prednisone Allergy rash Verified 11/29/19 20:50 PFSH Acute PFSH: Medical History Cannabis dependence, uncomplicated Cervical disc disorder with myelopathy of mid-cervical region Cervical post-laminectomy syndrome COPD (chronic obstructive pulmonary disease) Diabetes mellitus GERD with esophagitis History of methamphetamine abuse Major depressive disorder, recurrent severe without psychotic features Schizoaffective disorder, depressive type Smoker Surgical History History of angiography Brain June 2019 History of brain surgery June 21, 2019 endovascular treatment of dural AV fistula History of cervical spinal arthrodesis C4-C6 ACDFF; [place], [place]; 11/01/2015 History of hysterectomy Family History Mother Cancer Heart disease Social History Smoking and tobacco status: current every day smoker Second hand smoke exposure: Yes Smoking risk assessment/counseling performed?: Yes Alcohol intake: never Desire information about alcohol rehabilitation?: No Counseling given: No Desire information about substance/drug rehabilitation?: No Counseling given: No Adopted: No Caregiver/support person: No Lives independently: Yes Household members: spouse Marital status: Number of children: 0 service: No Current occupational status: unemployed Current occupational exposures/hazards: No Pets and animals: Yes History of recent travel: No Current gender identity: Female Vitals/I&O/Wt Last Vital Signs Temp 98.5 F 12/03/19 12:23 Pulse 75 12/03/19 15:00 Resp 16 12/03/19 15:00 BP 120/67 12/03/19 15:00 Pulse Ox 93 12/03/19 15:00 12/03/19 12/03/19 12/03/19 06:59 14:59 22:59 Intake Total 100 / 100 Balance 100 / 100 Weight last 48 hrs Weight 72.484 kg Physical Exam Narrative: EXAM NARRATIVE: GEN: Awake, alert and oriented, no acute distress CVS: S1S2 N RS: CTA B/L Abd: Soft, nt/nd , bs+ CHEMISTRY INTERN: no focal motor neuro deficits at this time, except mild dysarthria, which her at bedside states is her baseline Data : 12/03/19 12:52 12/03/19 12:52 CT Head: Radiologist's impression: IMPRESSION: 1. No acute intracranial hemorrhage or edema. 2. Prior embolization coils are noted secondary to treatment of what has been described as an AV fistula. CTA head and neck: MPRESSION: 1. Normal carotid arteries. 2. No occlusions or stenosis lummi of Wan. 3. 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 No adjacent hemorrhage. EKG 1: I personally reviewed and interpreted this EKG as follows: My Interpretation: SINUS RHYTHM. no acute changes A&P Assessment and plan (1) Acute ischemic stroke: Status: Acute (2) Schizoaffective disorder, depressive type: Status: Acute (3) Cannabis dependence, uncomplicated: Status: Acute (4) Major depressive disorder, recurrent severe without psychotic features: Status: Acute (5) GERD with esophagitis: Status: Chronic (6) COPD (chronic obstructive pulmonary disease): Status: Chronic Qualifiers: COPD type: emphysema Emphysema type: unspecified Qualified Code(s): J43.9 - Emphysema, unspecified (7) Diabetes mellitus: Status: Chronic Qualifiers: Diabetes mellitus type: type 2 Diabetes mellitus fpc insulin use: without intermediate card tender use Diabetes mellitus complication status: with circulatory complication Diabetes mellitus complication detail: with other circulatory complications Qualified Code(s): E11.59 - Type 2 diabetes mellitus with other circulatory complications (8) Hyperlipemia: Status: Chronic Qualifiers: Hyperlipidemia type: mixed hyperlipidemia Qualified Code(s): E78.2 - Mixed hyperlipidemia Additional A&P Information Acute CVA s/p tPA this morning in the ER CT head and CTA results as above Admitted to ICU for post tpa monitoring Monitor blood pressure and neurologic assessment every 15 minutes for 2 hours, then every 30 minutes for 6 hours, then every hour until 24 hours after treatment. Obtain emergency CT if severe headache, acute hypertension, nausea, vomiting, or worsening neurologic exam. Withhold aspirin for first 24 hours after giving alteplase repeat Ct head 24 hrs post tPA. Telemetry monitoring Echocardiogram 09/2018 LV size with slightly diminished ejection fraction of 50- 55%, gr 1 diastolic dysfunction Attestations Medical Necessity Statement*: Anticipate <48 hrs stay for post CVA monitoring Coding Level of Care Code Acute Application Assistant for Lenny Fwd Diagnoses Acute ischemic stroke I63.9 Schizoaffective disorder, depressive type F25.1 Cannabis dependence, uncomplicated F12.20 Major depressive disorder, recurrent severe without psychotic features F33.2 GERD with esophagitis K21.0 COPD (chronic obstructive pulmonary disease) J43.9 COPD type: emphysema Emphysema type: unspecified Diabetes mellitus E11.59 Diabetes mellitus type: type 2 Diabetes mellitus intermediate card tender insulin use: without intermediate card tender use Diabetes mellitus complication status: with circulatory complication Diabetes mellitus complication detail: with other circulatory complication s Hyperlipemia E78.2 Hyperlipidemia type: mixed hyperlipidemia
[2019-12-03 16:12] LABS: Chol HDL Ratio 3.53 mg/dL (0.0-4.40); Cholesterol 166 mg/dL (0-200); HDL Cholesterol 47 mg/dL (60-100); LDL Cholesterol Calculated 67 mg/dL (50-129); LDL HDL Ratio 1.43 RATIO (0.00-3.22); Triglycerides 261 mg/dL (0-150)
[2019-12-03 17:04] LABS: Estmated Average Glucose 126
--- NOTE | 2019-12-03 17:42 | PC.NURSE ---
DYSPHAGIA SCREENING Nurse did nursing dysphagia screening on patient. Patient swallowed and handled ice, water and pudding well with no coughing or clearing of throat. Patient stated that when drinking and eating that it felt like it normally did. Dr. Blackburn notified of this and gave order to begin carbohydrate consistent carb diet.
[2019-12-03] MEDS: sodium chloride 0.9% 500 ML 999 ML IV (17:51)
[2019-12-03] MEDS: sucralfate 1 gm Tablet PO (17:51)
[2019-12-03] MEDS: sodium chloride 0.9% 1,000 ML 75 ML IV (17:51)
--- NOTE | 2019-12-03 18:17 | PC.NURSE ---
SHIFT SUMMARY Patient brought to ICU from ER for post TPA monitoring. Patient was reported to have NIHSS scale of 10 upon arrival to ER. Patient appears to have no deficits with an NIHSS scale of 0 at this time. Patient has been slightly hypotensive. Dr. Blackburn notified and gave orders to give a 500 mL bolus of normal saline, then start continuous normal saline at 75 mL/hour. Patient has been afebrile, 93-98% on room air and has been sinus rhythm in the 70s. Post 500 mL bolus, patients blood pressure has increased to 112/60. Patient asleep at this time with no needs.
--- NOTE | 2019-12-03 19:32 | PC.NURSE ---
patient stated slurred speech is baseline. Patient has no teeth does not prefer to wear dentures and has disturbed speech patters due to this
[2019-12-03] MEDS: atorvastatin 40 mg Tablet 20 MG PO (20:45)
[2019-12-03] MEDS: benztropine 1 mg Tablet PO (20:46)
[2019-12-03] MEDS: mirtazapine 15 mg Tablet PO (20:46)
[2019-12-03] MEDS: gabapentin 300 mg Capsule PO (20:46)
[2019-12-04] VITALS (25 sets, daily range): BP systolic 90–148; BP diastolic 49–91; PULSE 53–102; RESP 14–27; TEMP 36.4–37.1; O2SAT 91–99
[2019-12-04 04:05] LABS: Basophils # 0.1 10^3/uL (0.0-0.1); Basophils % 1.1 %; Eosinophils # 0.3 10^3/uL (0.0-0.8); Eosinophils % 2.9 %; Hematocrit 45.6 % (37.0-47.0); Hemoglobin 13.9 g/dL (11.5-15.3); Lymphocytes # 4.7 10^3/uL (0.8-4.8); Lymphocytes % 45.4 %; Mean Corpuscular HGB Conc 30.5 g/dL (30.0-36.0); Mean Corpuscular Hemoglobin 30.7 pg (28.0-34.0); Mean Corpuscular Volume 100.7 fL (81-99); Mean Platelet Volume 10.5 fL (7.4-10.4); Monocytes # 0.8 10^3/uL (0.2-0.9); Monocytes % 7.7 %; Neutrophils # 4.45 10^3/uL (1.8-7.7); Neutrophils % 42.6 %; Nucleated Red Blood Cells % 0 %; Platelet Count 278 10^3/cmm (130-400); Red Blood Count 4.53 10^6/uL (4.1-5.3); Red Cell Distribution Width 13.8 % (12.1-15.1); White Blood Count 10.4 10^3/uL (4.0-10.0)
[2019-12-04 04:32] LABS: Estmated Average Glucose 128; Hemoglobin A1C 6.1 % (4.0-6.0)
[2019-12-04 04:36] LABS: Alanine Aminotransferase 8 U/L (0-33); Albumin Level 3.9 g/dL (3.5-5.2); Alkaline Phosphatase 59 IU/L (35-105); Anion Gap 13.2 (5-19); Aspartate Amino Transferase 14 U/L (0-32); Blood Urea Nitrogen 15 mg/dL (6-20); Calcium 8.6 mg/dL (8.5-10.5); Carbon Dioxide 18 mmol/L (22-29); Chloride 113 mmol/L (98-107); Globulin 2.6 g/dL (1.3-4.6); Glomerular Filtration Rate 74.7 mL/min (90-130); Glucose 90 mg/dL (65-115); Osmolality Calculated 286 mOsm/kg (285-295); Potassium 4.2 mmol/L (3.5-5.1); Sodium 140 mmol/L (136-145); Total Bilirubin 0.2 mg/dL (0.15-1.2); Total Protein 6.5 g/dL (6.6-8.7)
[2019-12-04 04:57] LABS: Chol HDL Ratio 3.57 mg/dL (0.0-4.40); Cholesterol 150 mg/dL (0-200); HDL Cholesterol 42 mg/dL (60-100); LDL Cholesterol Calculated 78 mg/dL (50-129); LDL HDL Ratio 1.86 RATIO (0.00-3.22); Triglycerides 148 mg/dL (0-150)
--- NOTE | 2019-12-04 06:00 | USCV_ITS ---
Nolan Brenna Age: 54 Gender: F : 1965 Exam Date: 12/04/2019 08:54 Ordering Phys: Hunter Salazar DO Technologist: Tanika Keane Exam Location: [facility] [place] Indication: CVA BP: 125 / 58 HR: 74 Rhythm: Sinus Technical Quality: Adequate MEASUREMENTS (Male / Female) Normal Values 2D ECHO LV Diastolic Diameter PLAX 3.6 cm 4.2 - 5.9 / 3.9 - 5.3 cm LV Systolic Diameter PLAX 2.7 cm LV Chamber Size 4.2 cm IVS Diastolic Thickness 1.3 cm 0.6 - 1.0 / 0.6 - 0.9 cm IVS Systolic Thickness 1.6 cm LVPW Diastolic Thickness 1.0 cm 0.6 - 1.0 / 0.6 - 0.9 cm LVPW Systolic Thickness 1.3 cm RV Chamber Size 2.6 cm LVOT Diameter 2.1 cm LV Ejection Fraction 2D Teich 51.6 % LV Ejection Fraction MOD 2C 59.9 % LV Ejection Fraction 2C AL 61.4 % LA Diameter 3.1 cm LA Width 2.9 cm LA Height 4.9 cm RA Width 2.9 cm RA Height 4.6 cm Aorta at Sinotubular Diameter 2.4 cm M-MODE LV Diastolic Diameter MM 5.1 cm 4.2 - 5.9 / 3.9 - 5.3 cm LV Systolic Diameter MM 3.4 cm LV Ejection Fraction MM Teich 62.1 % IVS Diastolic Thickness MM 1.0 cm 0.6 - 1.0 / 0.6 - 0.9 cm IVS Systolic Thickness MM 1.3 cm LVPW Diastolic Thickness MM 1.0 cm 0.6 - 1.0 / 0.6 - 0.9 cm LVPW Systolic Thickness MM 1.2 cm RV Diastolic Diameter MM 0.7 cm Aortic Annulus Diameter 2.9 cm LA Ao Ratio MM 1.1 MV E Point Septal Separation 1.1 cm DOPPLER AV Peak Velocity 155.0 cm/s LVOT Peak Velocity 132.0 cm/s AV Area Cont Eq vti 3.3 cm squared AV Area Cont Eq pk 2.9 cm squared MV Area PHT 3.9 cm squared Mitral E to A Ratio 0.8 MV E' Velocity 8.0 cm/s Mitral E to MV E' Ratio 10.8 Mitral E to LV E' Lateral Ratio 10.1 Mitral E to LV E' Septal Ratio 11.6 TR Peak Velocity 237.0 cm/s TR Peak Gradient 22.5 mmHg TV Peak E Velocity 40.0 cm/s Right Atrial Pressure 8.0 mmHg Pulmonary Artery Systolic Pressu 30.5 mmHg PV Peak Velocity 101.0 cm/s RV Acceleration Time 0.1 s RV Ejection Time 0.3 s RV AcT/ET 0.3 FINDINGS Left Ventricle Normal left ventricular size, systolic function and wall thickness, with no regional wall motion abnormalities. LVEF is 60 to 65%. Mild LVH is noted. Normal diastolic filling pattern. Right Ventricle The right ventricle is normal in size and function. Right Atrium The right atrium is normal in size. Left Atrium The left atrium is mildly enlarged. Mitral Valve Structurally normal mitral valve without significant stenosis or prolapse. There is trace mitral regurgitation. Aortic Valve Structurally normal aortic valve without significant sclerosis or stenosis. There is no aortic regurgitation. Tricuspid Valve Structurally normal tricuspid valve without significant stenosis or regurgitation. Insufficient TR jet to measure RVSP. Pulmonic Valve Structurally normal pulmonic valve without significant stenosis. There is no pulmonic regurgitation. Pericardium Normal pericardium without effusion. Aorta Normal ascending aorta dimension. CONCLUSIONS Normal LV systolic function with EF of 60 to 65%. Normal diastolic function. Neymar Blue MD (Electronically Signed) Final Date: 04 December 2019 12:20 S
[2019-12-04] MEDS: sodium chloride 0.9% 1,000 ML 75 ML IV (06:57)
[2019-12-04 08:21] LABS: Glucose Point of Care 93 mg/dL (70-110)
[2019-12-04] MEDS: pantoprazole DR 40 mg Tablet PO (09:30)
[2019-12-04] MEDS: lisinopril 2.5 mg Tablet PO (09:30)
[2019-12-04] MEDS: sertraline 100 mg Tablet PO (09:30)
[2019-12-04] MEDS: fenofibrate 145 mg Tablet PO (09:30)
[2019-12-04] MEDS: sucralfate 1 gm Tablet PO (09:30)
[2019-12-04] MEDS: ARIPiprazole 10 mg Tablet 20 MG PO (09:31)
--- NOTE | 2019-12-04 09:41 | CT_ITS ---
WS: [id number] EXAM: CT head wo con* [id number] DATE OF EXAMINATION: 12/04/2019, 1100 hours COMPARISON: Head CT from 12/03/2019 HISTORY: 54 years old with status post TPA treatment. Status post AV fistula coiling. TECHNIQUE: Thin slice imaging obtained through the brain without the utilization of contrast. Images viewed in b rain, subdural and bone window with reconstructions. CONTRAST: None DLP: 653.[address] scans at [facility] use at least one of these dose optimization techniques: automat ed exposure control; mA and/or kV adjustment per patient size (includes targeted exams where dose is matched to clinical indication); or iterative reconstruction. FINDINGS: Goel-white differentiation is normal. No findings of hemorrhage, hydrocephalus, mass, mass effect or abnormal extra-axial fluid collection is seen. Post operative changes are seen along the medial bárbara in of the left middle cranial fossa seen extending into the area of the margin of the cavernous sinus felt be related to embolization procedure for the AV fistula. Similar to the exam from one day prior . No findings of hemorrhage, hydrocephalus, mass, mass effect or abnormal extra-axial fluid collectio n is seen. Calvarium is normal in appearance. Mastoid air cells are pneumatized and well aerated. Par anasal sinuses are pneumatized and well aerated. Extracalvarial soft tissues are unremarkable. CT/CT head wo con* [id number] IMPRESSION: No acute intracranial process. Post endovascular treatment changes of AV fistul a coiling seen along the right middle cranial fossa and peripheral margin of th e right cavernous sinus.
--- NOTE | 2019-12-04 10:53 | PM.DCS ---
Discharge Providers Date of Admission: 12/03/19 15:02 Date of Discharge: December 04, 2019 Attending Provider at Admission: Susan Blackburn MD Attending Provider at Discharge: Susan Blackburn MD Primary Care Provider: KANDIS Roman Diagnoses at Discharge Discharge Diagnosis (1) Acute ischemic stroke: Status: Acute (2) Schizoaffective disorder, depressive type: Status: Acute (3) Cannabis dependence, uncomplicated: Status: Acute (4) Major depressive disorder, recurrent severe without psychotic features: Status: Acute (5) GERD with esophagitis: Status: Chronic (6) COPD (chronic obstructive pulmonary disease): Status: Chronic Qualifiers: COPD type: emphysema Emphysema type: unspecified Qualified Code(s): J43.9 - Emphysema, unspecified (7) Diabetes mellitus: Status: Chronic Qualifiers: Diabetes mellitus complication detail: with other circulatory complications Diabetes mellitus complication status: with circulatory complication Diabetes mellitus chcf insulin use: without ocean transportation intermediary use Diabetes mellitus type: type 2 Qualified Code(s): E11.59 - Type 2 diabetes mellitus with other circulatory complications (8) Hyperlipemia: Status: Chronic Qualifiers: Hyperlipidemia type: mixed hyperlipidemia Qualified Code(s): E78.2 - Mixed hyperlipidemia Reason for Visit Reason for Visit: Stroke alert Hospital Course Discharge Summary: Brenna Francisco is a 54 year old female with PMH COPD, multiple neuralgias, DM, GERD, h/o substance abuse, schizoaffective disorder, cerebral AVM with endovascular treatment 06/2019 prsenetd to ER with dense left side hemiparesis starting at 10:30am , NIHSS 10 at presentation. She was seen by neurology Dr. schwartz and case was discussed with her neurointervention neurologist Dr. bay in [place] and it was decided to proceed with tPA. Her deficits have resolved after tPA. She was admitted for post tPA monitoring. repeat CT head without evidence of bleeding. Echocardiogram taken, results pending at discharge. No acute events on telemetry. Hba1c at 6.1 consistent with preDM. hdl 42, LDL 78. No motor deficits at time of discharge. 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: no focal neuro deficits Discharge Data Data Completed and Pending: Completed Studies During Hospitalization Category Date Time Status CT angio headneck * [id number] Urge nt Cat Scan 12/03/19 12:[address] head wo con* [id number] 0450 Urgent Cat Scan 12/03/19 Completed Pending at discharge Category Date Time Status CT head wo con* [id number] 0450 Routine Cat Scan 12/04/19 09:41 Ordered CV echo complete* [id number] Routine Ultrasound 12/04/19 06:00 Taken Labs from last 24 hours 12/04/19 12/04/19 12/04/19 08:02 03:54 03:54 WBC RBC Hgb Hct MCV MCH MCHC RDW Plt Count MPV Neut % (Auto) Lymph % (Auto) [place] % (Auto) Eos % (Auto) Baso % (Auto) Neut # (Auto) Lymph # (Auto) [place] # (Auto) Eos # (Auto) Baso # (Auto) Nucleated RBC % (a uto) Nucleated RBCs # PT INR APTT Sodium Potassium Chloride Carbon Dioxide Anion Gap BUN Creatinine GFR Calculation Glucose POC Glucose 93 Estimat Average Gl ucose 128 Hemoglobin A1c 6.1 H Calculated Osmolal ity Calcium Total Bilirubin AST ALT Alkaline Phosphata se Total Protein Albumin Globulin Triglycerides 148 Cholesterol 150 LDL Cholesterol, C alc 78 HDL Cholesterol 42 L LDL/HDL Ratio 1.86 Cholesterol/HDL Ra westley 3.57 Urine Color Urine Appearance Urine pH Ur Specific Gravit y Urine Protein Urine Glucose (UA) Urine Ketones Urine Blood Urine Nitrate Urine Bilirubin Urine Urobilinogen Ur Leukocyte Marisa ase Urine Opiates Scre en Ur Barbiturates Sc reen Ur Phencyclidine S crn Ur Amphetamines Sc reen U Benzodiazepines Scrn Urine Cocaine Scre en U Marijuana (THC) Screen 12/04/19 12/04/19 12/03/19 03:54 03:54 14:10 WBC 10.4 H RBC 4.53 Hgb 13.9 Hct 45.6 MCV 100.7 H D MCH 30.7 MCHC 30.5 RDW 13.8 Plt Count 278 MPV 10.5 H Neut % (Auto) 42.6 Lymph % (Auto) 45.4 [place] % (Auto) 7.7 Eos % (Auto) 2.9 Baso % (Auto) 1.1 Neut # (Auto) 4.45 Lymph # (Auto) 4.7 [place] # (Auto) 0.8 Eos # (Auto) 0.3 Baso # (Auto) 0.1 Nucleated RBC % (a uto) 0 Nucleated RBCs # 0.0 PT INR APTT Sodium 140 Potassium 4.2 Chloride 113 H Carbon Dioxide 18 L Anion Gap 13.2 BUN 15 Creatinine 0.8 GFR Calculation 74.7 L Glucose 90 POC Glucose Estimat Average Gl ucose Hemoglobin A1c Calculated Osmolal ity 286 Calcium 8.6 Total Bilirubin 0.2 AST 14 ALT 8 Alkaline Phosphata se 59 Total Protein 6.5 L Albumin 3.9 Globulin 2.6 Triglycerides Cholesterol LDL Cholesterol, C alc HDL Cholesterol LDL/HDL Ratio Cholesterol/HDL Ra westley Urine Color Urine Appearance Urine pH Ur Specific Gravit y Urine Protein Urine Glucose (UA) Urine Ketones Urine Blood Urine Nitrate Urine Bilirubin Urine Urobilinogen Ur Leukocyte Marisa ase Urine Opiates Scre en Negative Ur Barbiturates Sc reen Negative Ur Phencyclidine S crn Negative Ur Amphetamines Sc reen Negative U Benzodiazepines Scrn Negative Urine Cocaine Scre en Negative U Marijuana (THC) Screen Positive H 12/03/19 12/03/19 12/03/19 14:10 13:04 12:52 WBC RBC Hgb Hct MCV MCH MCHC RDW Plt Count MPV Neut % (Auto) Lymph % (Auto) [place] % (Auto) Eos % (Auto) Baso % (Auto) Neut # (Auto) Lymph # (Auto) [place] # (Auto) Eos # (Auto) Baso # (Auto) Nucleated RBC % (a uto) Nucleated RBCs # PT INR APTT Sodium Potassium Chloride Carbon Dioxide Anion Gap BUN Creatinine GFR Calculation Glucose POC Glucose Estimat Average Gl ucose 126 Hemoglobin A1c 6.0 Calculated Osmolal ity Calcium Total Bilirubin AST ALT Alkaline Phosphata se Total Protein Albumin Globulin Triglycerides 261 H Cholesterol 166 LDL Cholesterol, C alc 67 HDL Cholesterol 47 L LDL/HDL Ratio 1.43 Cholesterol/HDL Ra westley 3.53 Urine Color Straw Urine Appearance Clear Urine pH 5.0 Ur Specific Gravit y 1.005 Urine Protein Neg Urine Glucose (UA) Norm Urine Ketones Negative Urine Blood Neg Urine Nitrate Negative Urine Bilirubin Neg Urine Urobilinogen Norm Ur Leukocyte Marisa ase Negative Urine Opiates Scre en Ur Barbiturates Sc reen Ur Phencyclidine S crn Ur Amphetamines Sc reen U Benzodiazepines Scrn Urine Cocaine Scre en U Marijuana (THC) Screen 12/03/19 12/03/19 12/03/19 12:52 12:52 12:52 WBC 10.2 H RBC 4.92 Hgb 14.6 Hct 46.8 MCV 95.1 MCH 29.7 MCHC 31.2 RDW 13.4 Plt Count 335 MPV 10.6 H Neut % (Auto) 53.4 Lymph % (Auto) 36.7 [place] % (Auto) 6.1 Eos % (Auto) 2.1 Baso % (Auto) 1.5 Neut # (Auto) 5.46 Lymph # (Auto) 3.7 [place] # (Auto) 0.6 Eos # (Auto) 0.2 Baso # (Auto) 0.2 H Nucleated RBC % (a uto) 0 Nucleated RBCs # 0.0 PT 12.70 INR 0.93 APTT 27.1 Sodium 140 Potassium 3.9 Chloride 108 H Carbon Dioxide 20 L Anion Gap 15.9 BUN 20 Creatinine 0.8 GFR Calculation 74.7 L Glucose 91 POC Glucose Estimat Average Gl ucose Hemoglobin A1c Calculated Osmolal ity 286 Calcium 10.1 Total Bilirubin 0.2 AST 18 ALT 12 Alkaline Phosphata se 83 Total Protein 7.8 Albumin 4.3 Globulin 3.5 Triglycerides Cholesterol LDL Cholesterol, C alc HDL Cholesterol LDL/HDL Ratio Cholesterol/HDL Ra westley Urine Color Urine Appearance Urine pH Ur Specific Gravit y Urine Protein Urine Glucose (UA) Urine Ketones Urine Blood Urine Nitrate Urine Bilirubin Urine Urobilinogen Ur Leukocyte Marisa ase Urine Opiates Scre en Ur Barbiturates Sc reen Ur Phencyclidine S crn Ur Amphetamines Sc reen U Benzodiazepines Scrn Urine Cocaine Scre en U Marijuana (THC) Screen 12/03/19 12:33 WBC RBC Hgb Hct MCV MCH MCHC RDW Plt Count MPV Neut % (Auto) Lymph % (Auto) [place] % (Auto) Eos % (Auto) Baso % (Auto) Neut # (Auto) Lymph # (Auto) [place] # (Auto) Eos # (Auto) Baso # (Auto) Nucleated RBC % (a uto) Nucleated RBCs # PT INR APTT Sodium Potassium Chloride Carbon Dioxide Anion Gap BUN Creatinine GFR Calculation Glucose POC Glucose 86 Estimat Average Gl ucose Hemoglobin A1c Calculated Osmolal ity Calcium Total Bilirubin AST ALT Alkaline Phosphata se Total Protein Albumin Globulin Triglycerides Cholesterol LDL Cholesterol, C alc HDL Cholesterol LDL/HDL Ratio Cholesterol/HDL Ra westley Urine Color Urine Appearance Urine pH Ur Specific Gravit y Urine Protein Urine Glucose (UA) Urine Ketones Urine Blood Urine Nitrate Urine Bilirubin Urine Urobilinogen Ur Leukocyte Marisa ase Urine Opiates Scre en Ur Barbiturates Sc reen Ur Phencyclidine S crn Ur Amphetamines Sc reen U Benzodiazepines Scrn Urine Cocaine Scre en U Marijuana (THC) Screen Vitals: Last Vital Signs Temp 97.9 F 12/04/19 04:12 Pulse 62 12/04/19 05:30 Resp 18 12/04/19 05:30 BP 125/58 12/04/19 05:30 Pulse Ox 94 12/04/19 05:30 Discharge Plan Discharge Patient Disposition: Home Condition: Stable Prescriptions: New aspirin [Adult Aspirin Regimen] 81 mg tablet,delayed release (DR/EC) 81 mg PO DAILY Qty: 30 RF: 0 Continued tizanidine 2 mg tablet 2 mg PO BID Qty: 60 RF: 2 Spiriva with HandiHaler 18 mcg capsule, w/inhalation device 1 cap INHALATION DAILY Qty: 30 RF: 2 sucralfate [Carafate] 1 gram tablet 1 gm PO BID Qty: 60 RF: 2 magnesium oxide 400 mg magnesium tablet 400 mg PO BID Qty: 60 RF: 2 Trulicity 0.75 mg/0.5 mL pen injector 0.75 mg SUBCUT Q7D Qty: 2 RF: 2 Symbicort 160-4.5 mcg/actuation HFA aerosol inhaler 2 puff INHALATION Q12H Qty: 10.2 RF: 2 aripiprazole [Abilify] 20 mg tablet 20 mg PO DAILY Qty: 30 RF: 2 sertraline [Zoloft] 100 mg tablet 100 mg PO DAILY Qty: 30 RF: 2 zonisamide 50 mg capsule 50 mg PO BID Qty: 60 RF: 2 erythromycin 5 mg/gram (0.5 %) ointment 1 applic ophthalmic (eye) Q12H Qty: 1 RF: 0 acetaminophen [Tylenol] 325 mg Tablet 325 - 650 mg PO Q4H PRN (Reason: Pain) RF: 0 Multiple Vitamins Tablet 1 tab PO DAILY RF: 0 gabapentin 300 mg Capsule 300 mg PO BEDTIME RF: 0 ProAir HFA 90 mcg/actuation Hfa Aerosol Inhaler 2 puff INHALATION Q6H PRN (Reason: Shortness Of Breath) RF: 0 fenofibrate nanocrystallized 145 mg tablet 145 mg PO DAILY RF: 0 benztropine 1 mg tablet 1 mg PO BEDTIME RF: 0 omeprazole 20 mg capsule,delayed release(DR/EC) 20 mg PO DAILY RF: 0 Remeron 15 mg tablet 15 mg PO BEDTIME RF: 0 lisinopril 2.5 mg tablet 2.5 mg PO DAILY RF: 0 Cbd Oil See Rx Instructions .ROUTE .COMPLEX RF: 0 Discharge Orders: Discharge Order (Routine); Ordered 12/04/19 Ordered By: Susan Blackburn Referrals: Lucila Thomas, REACTOR SERVICE OPERATOR-C [Primary Care Provider] - 4-7 days (hospital discharge follow up for acute stroke ) Discharge Diet: Cardiac, Diabetic, Low Cholesterol and Low Fat Discharge Activity: Resume usual activity and As per PT/OT instructions Discharge Attestations Time Spent in Discharge Care*: greater than 30 min Quality Metrics Clinical Quality Measures During this hospital stay, did patient experience: Stroke Contraindication to Antithrombotic: Antithrombotic prescribed Contraindication to Anticoagulation: Overlap treatment not indicated Contraindication to Statin: Statin prescribed Contraindication to tPA: tPA given Coding Level of Care Code Acute Chemist Steroids for [facility] Fwd Diagnoses Acute ischemic stroke I63.9 Schizoaffective disorder, depressive type F25.1 Cannabis dependence, uncomplicated F12.20 Major depressive disorder, recurrent severe without psychotic features F33.2 GERD with esophagitis K21.0 COPD (chronic obstructive pulmonary disease) J43.9 COPD type: emphysema Emphysema type: unspecified Diabetes mellitus E11.59 Diabetes mellitus complication detail: with other circulatory complications Diabetes mellitus complication status: with circulatory complication Diabetes mellitus ocean transportation intermediary insulin use: without chcf use Diabetes mellitus type: type 2 Hyperlipemia E78.2 Hyperlipidemia type: mixed hyperlipidemia
[2019-12-04 11:18] LABS: Glucose Point of Care 86 mg/dL (70-110)
--- NOTE | 2019-12-04 13:25 | PC.CHAP ---
Pastoral Care Encounter/Spiritual Assessment Type of Contact [] Declined mental health social worker visit [] Patient/Family/Request visit [] Outpatient visit [] Follow-up visit [] Physician referral [] Code/Alert [X] Routine visit [] Staff referral [] Actively dying [X] Patient sleeping [] Family support [] [] Out of room [] Palliative care [] [] Receiving care in room [] Pre-surgical visit [] Trauma [] Long length of stay [] ICU visit [] Other: Relational/Emotional Strength [] Patient feels connected with others/family/visitors/staff [] Distress [] Loneliness/isolation [] Abandonment Spirituality of Patient [] Person of [place] [] Attends Church of their [place] [] Believes in Prayer [] Reads Bible or Jewish materials [] There are Spiritual issues to be addressed Organ Fixer Interventions [] Prayer [] Active listening [] Non-anxious presence [] Spiritual/emotional support [] Crisis/trauma care [] Spiritual counseling [] Bereavement support [] Provided bereavement packet [] Provided Bible/devotional materials [] Provided toy/stuffed animal, coloring book to patient or family member [] Provided Communion [] Anointing/[place] [] Salvation [] Completed spiritual assessment [] Other: Impact on Illness or Injury [] Angry [] Fearful [] Anxious [] Often cries [] Exhaustion [] Unable to work [] Unable to attend church [] Unable to walk/stand [] Unable to read [] Unable to drive [] Unable to eat/drink [] Unable to sleep [] Unable to be with family [] Patient intubated [] Other: Summary Time spent with patient
--- NOTE | 2019-12-04 14:45 | PC.NUTR ---
NUTR STROKE CONSULT: Consult received for stroke. Will assess and cont to monitor progress.
--- NOTE | 2019-12-04 16:00 | PC.NURSE ---
Discharge instructions provided and discussed. FAST and s/s of strokes discussed, pt verbalized understanding. Pt declined to go over care notes on aspirin, stating she was familiar with it. Follow-up appts to be made made by pt. Pt discharged home.
[2019-12-04 21:45] LABS: Glucose Point of Care 106 mg/dL (70-110)
[2019-12-04 21:45] LABS: Glucose Point of Care 108 mg/dL (70-110)
--- NOTE | 2019-12-06 16:54 | PC.RESP ---
SMOKING CESSATION AND PULMONARY REHAB INFORMATION SENT TO PATIENT.
== END 2019-12-04 16:00 | disposition home or self-care (01) ==
LOC: ER 12:35 → ICU 16:20
PROVIDERS: Family Medicine; Admitting Provider Student in an Organized Health Care Education/Training Program; PCP Nurse Practitioner; Visit Provider Student in an Organized Health Care Education/Training Program
DX: I63.9 Cerebral infarction, unspecified (principal); E11.9 Type 2 diabetes mellitus without complications; F17.200 Nicotine dependence, unspecified, uncomplicated; R29.710 NIHSS score 10; F25.1 Schizoaffective disorder, depressive type; F12.20 Cannabis dependence, uncomplicated; F33.2 Major depressive disorder, recurrent severe without psychotic features; K21.0 Gastro-esophageal reflux disease with esophagitis; J43.9 Emphysema, unspecified; E78.5 Hyperlipidemia, unspecified; Z79.82 Long term (current) use of aspirin; Z79.51 Long term (current) use of inhaled steroids; Z79.899 Other long term (current) drug therapy
CPT/HCPCS: 12345; 36415; 36416; 70450; 70496; 70498; 80053; 80061; 80306; 81003; 82962; 83036; 85025; 85610; 85730; 92523; 93005; 93306; 96361; 96365; 97161; 97165; 97530; 99284; 99285; G0378; J2997; J7030; J7040; Q9967

== ENCOUNTER 2019-12-23 16:02 | Emergency (ER) | payer MEDICARE, MEDICAID, SELFPAY ==
[2019-12-23 16:08] VITALS: BP 115/65; PULSE 86; RESP 20; TEMP 36.5; O2SAT 98; BMI 27.3
--- NOTE | 2019-12-23 17:23 | CTR_ITS ---
PROCEDURE INFORMATION: Exam: CT Head Without Contrast Exam date and time: 12/23/2019 5:32 PM Age: 54 years old Clinical indication: Speech disturbance and other: Uncontrollable shaking and jerking; Additional info: Difficulty speaking TECHNIQUE: Imaging protocol: Computed tomography of the head without contrast. Radiation optimization: All CT scans at this facility use at least one of these dose optimization techniques: automated exposure control; mA and/or kV adjustment per patient size (includes targeted exams where dose is matched to clinical indication); or iterative reconstruction. COMPARISON: CT head wo con* [id number] 12/04/2019 10:59 AM RADIATION DOSE METRICS: Total DLP (mGy-cm): 828.95 FINDINGS: Brain: The sulci are normal. No abnormal attenuation. No intracranial hemorrhage. Ventricles: Normal. No ventriculomegaly. Bones/joints: Unremarkable. No acute fracture. Sinuses: Visualized sinuses are unremarkable. No fluid levels. Mastoid air cells: Visualized mastoid air cells are well aerated. Vasculature: Vascular coils are clips in the right cavernous region. Soft tissues: Unremarkable. CT/CT head wo con* [id number] IMPRESSION: No acute intracranial abnormality. Radiation Dose CTDIVOL = (mGy): DLP = 828.95 (mGy-cm)
--- NOTE | 2019-12-23 17:23 | ECG_ITS ---
[facility] Test Date: 2019-12-23 Pat Name: Brenna Francisco Department: Room: Gender: Female Project Financial Analyst: : 1965 Requested By: Hunter Storm Order Number: [id number] Sydnee MD: Sabrina Benito M.D. Measurements Intervals [place] Rate: 73 P: 73 CT: 146 QRS: 63 QRSD: 86 T: 57 QT: 346 QTc: 382 Interpretive Statements SINUS RHYTHM Compared to ECG 12/03/2019 13:06:10 No significant changes Electronically Signed On 12-23-2019 20:23:29 CDT by Sabrina Benito M.D. [email or web address]
[2019-12-23 19:52] VITALS: BP 108/64; PULSE 75; RESP 18; TEMP 36.6; O2SAT 99
[2019-12-23 20:04] LABS: Basophils # 0.2 10^3/uL (0.0-0.1); Basophils % 1.5 %; Eosinophils # 0.5 10^3/uL (0.0-0.8); Eosinophils % 4.1 %; Hematocrit 42.9 % (37.0-47.0); Hemoglobin 13.9 g/dL (11.5-15.3); Lymphocytes # 4.7 10^3/uL (0.8-4.8); Mean Corpuscular HGB Conc 32.4 g/dL (30.0-36.0); Mean Corpuscular Hemoglobin 29.9 pg (28.0-34.0); Mean Corpuscular Volume 92.3 fL (81-99); Mean Platelet Volume 10.7 fL (7.4-10.4); Monocytes # 0.7 10^3/uL (0.2-0.9); Monocytes % 5.8 %; Neutrophils # 5.66 10^3/uL (1.8-7.7); Neutrophils % 48.3 %; Nucleated Red Blood Cells % 0 %; Platelet Count 348 10^3/cmm (130-400); Red Blood Count 4.65 10^6/uL (4.1-5.3); Red Cell Distribution Width 13.2 % (12.1-15.1); White Blood Count 11.7 10^3/uL (4.0-10.0)
[2019-12-23 20:28] LABS: Alanine Aminotransferase 16 U/L (0-33); Albumin Level 4.5 g/dL (3.5-5.2); Alkaline Phosphatase 62 IU/L (35-105); Aspartate Amino Transferase 16 U/L (0-32); Blood Urea Nitrogen 28 mg/dL (6-20); Calcium 9.8 mg/dL (8.5-10.5); Carbon Dioxide 19 mmol/L (22-29); Chloride 109 mmol/L (98-107); Creatine Phosphokinase 55 U/L (26-192); Glomerular Filtration Rate 57.8 mL/min (90-130); Glucose 98 mg/dL (65-115); Osmolality Calculated 287 mOsm/kg (285-295); Sodium 140 mmol/L (136-145); Total Bilirubin 0.2 mg/dL (0.15-1.2); Total Protein 7.5 g/dL (6.6-8.7)
[2019-12-23 20:32] LABS: Alcohol Level < 10 mg/dL (0-10)
--- NOTE | 2019-12-23 22:06 | ED_ITS ---
Documented by User: Sara Conway MD 12/24/19 12:34 HPI - General Adult General: Chief complaint: General Medical Stated complaint: stroke like symptoms Time Seen by Provider: 12/23/19 21:08 History of Present Illness: HPI narrative: This patient is a 54-year-old female who presents today with uncontrollable movements. She says that yesterday she started having severe hot flashes. She said these were so bad she would have to lay down under a fan and eventually she would fall asleep for a few hours and wake up feeling a little bit better. That happened a few times and then last night she started having uncontrollable movements initially on her left side and now it is on both sides of her body including her face. She went and saw her PCP today for these complaints and was referred to the ER for a CT scan. She did have an ischemic stroke in November. She was admitted around the with left-sided hemiplegia per the notes. She tells me the effect was on the right side. She had TPA administered and has done well since then. She also has a history of having a aneurysm coiled earlier this year. Additionally she has a history of schizoaffective disorder and has been on medication for years for that. She has not had any new or different medications. She said she has had some tremors previously but is never had any uncontrollable movements like this. She said she is having difficulty walking because of her head movements throwing her off balance. She denies double vision. She does take Betancourt phi and benztropine. She is also on zonisamide and tizanidine. Onset (ago): day(s) (1) Location: face, mouth, upper extremity and lower extremity Associated symptoms: Deny chest pain, dyspnea, headache(s), malaise, nausea, rash or vomiting Review of Systems General: Reports: 10 or more systems reviewed and unremarkable except in HPI and below Const: Denies: fever(s), chills, fatigue or malaise Eyes: Denies: change in vision ENMT: Denies: odynophagia Card: Denies: chest pain or swelling of feet/ankles Resp: Denies: dyspnea, productive cough or non-productive cough GI: Denies: abdominal pain, nausea or vomiting : Denies: flank pain or difficulty voiding Musc: Denies: neck pain or back pain Skin/Breast: Denies: rash Neuro: Reports: difficulty walking and involuntary movements; Denies: headache(s), numbness in extremities or weakness in extremities Pablo/Lymph: Denies: easy bruising or easy bleeding PFSH ED PFSH: Medical History Cannabis dependence, uncomplicated Cervical disc disorder with myelopathy of mid-cervical region Cervical post-laminectomy syndrome COPD (chronic obstructive pulmonary disease) Diabetes mellitus GERD with esophagitis History of methamphetamine abuse Major depressive disorder, recurrent severe without psychotic features Schizoaffective disorder, depressive type Smoker Surgical History History of angiography Brain June 2019 History of brain surgery June 21, 2019 endovascular treatment of dural AV fistula History of cervical spinal arthrodesis C4-C6 ACDFF; [place], [place]; 11/01/2015 History of hysterectomy Family History Mother Cancer Heart disease Social History Smoking and tobacco status: current every day smoker Second hand smoke exposure: Yes Smoking risk assessment/counseling performed?: Yes Alcohol intake: never Desire information about alcohol rehabilitation?: No Counseling given: No Desire information about substance/drug rehabilitation?: No Counseling given: No Adopted: No Caregiver/support person: No Lives independently: Yes Household members: spouse Marital status: Number of children: 0 service: No Current occupational status: unemployed Current occupational exposures/hazards: No Pets and animals: Yes History of recent travel: No Current gender identity: Female Physical Exam Const: COMMON NORMALS: no acute distress, patient oriented x3, no limitations and alert GENERAL APPEARANCE: cooperative and comfortable HENMT: HEAD & SCALP: normal to inspection FACE & SINUS: normal facial exam Eye: GENERAL EYE: appearance normal, both eyes and all related structures Neck/C-Spine: COMMON NORMALS: supple, no meningeal signs and no JVD Chest: COMMONS NORMALS: normal inspection of the chest Resp: COMMON NORMALS: normal respiratory effort, No use of accessory muscles and clear to auscultation bilaterally AUSCULTATION: clear to auscultation bilaterally Cardio: COMMON NORMALS: no JVD, regular rate, regular rhythm and No murmurs present (Cardio) RATE: regular rate RHYTHM: regular rhythm GI: COMMON NORMALS: Normal to inspection, nondistended, normoactive bowel sounds present, Soft to palpation and non-tender INSPECTION: Yes normal to inspection AUSCULTATION: Yes normoactive bowel sounds PALPATION: Yes Soft to palpation Back/Pelvis: COMMON NORMALS: thoracic and lumbar spine normal to inspection Extremity: COMMON NORMALS: normal to inspection Neuro: COMMON NORMALS: patient oriented x3, moves all extremities, no focal mo tor deficits and no sensory deficits noted SENSORIUM/ORIENTATION: Yes alert MENINGEAL SIGNS: Yes no meningeal signs MOTOR EXAM: Motor abnormalites present (Constant movement of both arms and intermittent movement of both legs and feet. Tardive dyskinesia type movements of the mouth. Also choreoathetotic movements of the trunk.) Psych: COMMON NORMALS: mental status grossly normal, cooperative and normal affect Skin: COMMON NORMALS: no rashes or lesions noted and turgor normal GENERAL SKIN EXAM: no rashes or lesions noted and turgor normal Course Vital Signs: Vital signs: Vital Signs Temperature 97.8 F 12/23/19 19:52 Pulse Rate 87 12/24/19 01:01 Respiratory Rate 16 12/24/19 01:01 Blood Pressure 132/87 12/24/19 01:01 Pulse Oximetry 96 12/24/19 01:01 [facility] - General Adult Lab Data: Labs: Lab Results 12/23/19 12/23/19 12/23/19 Range/Units 19:47 19:47 22:19 WBC 11.7 H (4.0-10.0) 10^3/ uL RBC 4.65 (4.1-5.3) 10^6/u L Hgb 13.9 (11.5-15.3) g/dL Hct 42.9 (37.0-47.0) % MCV 92.3 (81-99) fL MCH 29.9 (28.0-34.0) pg MCHC 32.4 (30.0-36.0) g/dL RDW 13.2 (12.1-15.1) % Plt Count 348 (130-400) 10^3/c mm MPV 10.7 H (7.4-10.4) fL Neut % (Auto) 48.3 % Lymph % (Auto) 40.0 % [place] % (Auto) 5.8 % Eos % (Auto) 4.1 % Baso % (Auto) 1.5 % Neut # (Auto) 5.66 (1.8-7.7) 10^3/u L Lymph # (Auto) 4.7 (0.8-4.8) 10^3/u L [place] # (Auto) 0.7 (0.2-0.9) 10^3/u L Eos # (Auto) 0.5 (0.0-0.8) 10^3/u L Baso # (Auto) 0.2 H (0.0-0.1) 10^3/u L Nucleated RBC % (a uto) 0 % Nucleated RBCs # 0.0 /100WBC Sodium 140 (136-145) mmol/L Potassium 4.0 (3.5-5.1) mmol/L Chloride 109 H (98-107) mmol/L Carbon Dioxide 19 L (22-29) mmol/L Anion Gap 16.0 (5-19) BUN 28 H (6-20) mg/dL Creatinine 1.0 H (0.5-0.9) mg/dL GFR Calculation 57.8 L (90-130) mL/min Glucose 98 (65-115) mg/dL Calculated Osmolal ity 287 (285-295) mOsm/k g Calcium 9.8 (8.5-10.5) mg/dL Total Bilirubin 0.2 (0.15-1.2) mg/dL AST 16 (0-32) U/L ALT 16 (0-33) U/L Alkaline Phosphata se 62 (35-105) IU/L Creatine Kinase 55 (26-192) U/L Total Protein 7.5 (6.6-8.7) g/dL Albumin 4.5 (3.5-5.2) g/dL Globulin 3.0 (1.3-4.6) g/dL Urine Color Yellow (Yellow) Urine Appearance Sl hazy (CLEAR) Urine pH 6 (5-7) Ur Specific Gravit y 1.020 (1.005-1.030) Urine Protein Neg (Negative) Urine Glucose (UA) Norm (Normal) Urine Ketones Negative (Negative) Urine Blood 2+ H (Negative) Urine Nitrate Negative (Negative) Urine Bilirubin Neg (Negative) Urine Urobilinogen Norm (Negative) mg/dL Ur Leukocyte Marisa ase 1+ H (Negative) Urine RBC 0-4 H (0-2) /hpf Urine WBC 10-15 H (0-5) /hpf Ur Squamous Epith Cells 10-15 H (0-5) /hpf Amorphous Sediment Not Reportable Urine Bacteria 1+ H (NONE) /hpf Urine Opiates Scre en (Negative) ng/mL Ur Barbiturates Sc reen (Negative) ng/mL Ur Phencyclidine S crn (Negative) ng/mL Ur Amphetamines Sc reen (Negative) ng/mL U Benzodiazepines Scrn (Negative) ng/mL Urine Cocaine Scre en (Negative) ng/mL U Marijuana (THC) Screen (Negative) ng/mL Ethyl Alcohol < 10 (0-10) mg/dL 12/23/19 Range/Units 22:19 WBC (4.0-10.0) 10^3/ uL RBC (4.1-5.3) 10^6/u L Hgb (11.5-15.3) g/dL Hct (37.0-47.0) % MCV (81-99) fL MCH (28.0-34.0) pg MCHC (30.0-36.0) g/dL RDW (12.1-15.1) % Plt Count (130-400) 10^3/c mm MPV (7.4-10.4) fL Neut % (Auto) % Lymph % (Auto) % [place] % (Auto) % Eos % (Auto) % Baso % (Auto) % Neut # (Auto) (1.8-7.7) 10^3/u L Lymph # (Auto) (0.8-4.8) 10^3/u L [place] # (Auto) (0.2-0.9) 10^3/u L Eos # (Auto) (0.0-0.8) 10^3/u L Baso # (Auto) (0.0-0.1) 10^3/u L Nucleated RBC % (a uto) % Nucleated RBCs # /100WBC Sodium (136-145) mmol/L Potassium (3.5-5.1) mmol/L Chloride (98-107) mmol/L Carbon Dioxide (22-29) mmol/L Anion Gap (5-19) BUN (6-20) mg/dL Creatinine (0.5-0.9) mg/dL GFR Calculation (90-130) mL/min Glucose (65-115) mg/dL Calculated Osmolal ity (285-295) mOsm/k g Calcium (8.5-10.5) mg/dL Total Bilirubin (0.15-1.2) mg/dL AST (0-32) U/L ALT (0-33) U/L Alkaline Phosphata se (35-105) IU/L Creatine Kinase (26-192) U/L Total Protein (6.6-8.7) g/dL Albumin (3.5-5.2) g/dL Globulin (1.3-4.6) g/dL Urine Color (Yellow) Urine Appearance (CLEAR) Urine pH (5-7) Ur Specific Gravit y (1.005-1.030) Urine Protein (Negative) Urine Glucose (UA) (Normal) Urine Ketones (Negative) Urine Blood (Negative) Urine Nitrate (Negative) Urine Bilirubin (Negative) Urine Urobilinogen (Negative) mg/dL Ur Leukocyte Marisa ase (Negative) Urine RBC (0-2) /hpf Urine WBC (0-5) /hpf Ur Squamous Epith Cells (0-5) /hpf Amorphous Sediment Urine Bacteria (NONE) /hpf Urine Opiates Scre en Negative (Negative) ng/mL Ur Barbiturates Sc reen Negative (Negative) ng/mL Ur Phencyclidine S crn Negative (Negative) ng/mL Ur Amphetamines Sc reen Negative (Negative) ng/mL U Benzodiazepines Scrn Negative (Negative) ng/mL Urine Cocaine Scre en Negative (Negative) ng/mL U Marijuana (THC) Screen Negative (Negative) ng/mL Ethyl Alcohol (0-10) mg/dL Discharge Plan Discharge Patient Disposition: Home Clinical Impression: Dystonic movements Condition: Stable Prescriptions: No Action tizanidine 2 mg tablet 2 mg PO BID Qty: 60 RF: 2 Spiriva with HandiHaler 18 mcg capsule, w/inhalation device 1 cap INHALATION DAILY Qty: 30 RF: 2 sucralfate [Carafate] 1 gram tablet 1 gm PO BID Qty: 60 RF: 2 magnesium oxide 400 mg magnesium tablet 400 mg PO BID Qty: 60 RF: 2 Trulicity 0.75 mg/0.5 mL pen injector 0.75 mg SUBCUT Q7D Qty: 2 RF: 2 Symbicort 160-4.5 mcg/actuation HFA aerosol inhaler 2 puff INHALATION Q12H Qty: 10.2 RF: 2 lisinopril 5 mg tablet 5 mg PO DAILY Qty: 30 RF: 2 aripiprazole [Abilify] 20 mg tablet 20 mg PO DAILY Qty: 30 RF: 2 sertraline [Zoloft] 100 mg tablet 100 mg PO DAILY Qty: 30 RF: 2 zonisamide 50 mg capsule 50 mg PO BID Qty: 60 RF: 2 erythromycin 5 mg/gram (0.5 %) ointment 1 applic ophthalmic (eye) Q12H Qty: 1 RF: 0 acetaminophen [Tylenol] 325 mg Tablet 325 - 650 mg PO Q4H PRN (Reason: Pain) RF: 0 Multiple Vitamins Tablet 1 tab PO DAILY RF: 0 gabapentin 300 mg Capsule 300 mg PO BEDTIME RF: 0 ProAir HFA 90 mcg/actuation Hfa Aerosol Inhaler 2 puff INHALATION Q6H PRN (Reason: Shortness Of Breath) RF: 0 fenofibrate nanocrystallized 145 mg tablet 145 mg PO DAILY RF: 0 benztropine 1 mg tablet 1 mg PO BEDTIME RF: 0 omeprazole 20 mg capsule,delayed release(DR/EC) 20 mg PO DAILY RF: 0 Remeron 15 mg tablet 15 mg PO BEDTIME RF: 0 Cbd Oil See Rx Instructions .ROUTE .COMPLEX RF: 0 Adult Aspirin Regimen 81 mg tablet,delayed release (DR/EC) 81 mg PO DAILY Qty: 30 RF: 0 Discharge Orders: Discharge Order (Routine); Ordered 12/24/19 Ordered By: Daniella Ortiz Referrals: Lucila Thomas, USER INTERFACE ARTIST-C [Primary Care Provider] - 1-3 days Discharge Diet: Advance as tolerated Discharge Activity: Resume usual activity Patient Instructions: Tardive Dyskinesia Discharge Date/Time: 12/24/19 01:08 Coding Level of Care Code ED Material Dispatcher for Randellg Fwd Exam Comprehensive Documented by User: Daniella Ortiz MD 12/24/19 01:21 HPI - General Adult General: Chief complaint: General Medical Stated complaint: stroke like symptoms Time Seen by Provider: 12/23/19 21:08 PFS ED PFSH: Medical History Cannabis dependence, uncomplicated Cervical disc disorder with myelopathy of mid-cervical region Cervical post-laminectomy syndrome COPD (chronic obstructive pulmonary disease) Diabetes mellitus GERD with esophagitis History of methamphetamine abuse Major depressive disorder, recurrent severe without psychotic features Schizoaffective disorder, depressive type Smoker Surgical History History of angiography Brain June 2019 History of brain surgery June 21, 2019 endovascular treatment of dural AV fistula History of cervical spinal arthrodesis C4-C6 ACDFF; [place], [place]; 11/01/2015 History of hysterectomy Family History Mother Cancer Heart disease Social History Smoking and tobacco status: current every day smoker Second hand smoke exposure: Yes Smoking risk assessment/counseling performed?: Yes Alcohol intake: never Desire information about alcohol rehabilitation?: No Counseling given: No Desire information about substance/drug rehabilitation?: No Counseling given: No Adopted: No Caregiver/support person: No Lives independently: Yes Household members: spouse Marital status: Number of children: 0 service: No Current occupational status: unemployed Current occupational exposures/hazards: No Pets and animals: Yes History of recent travel: No Current gender identity: Female Course Vital Signs: Vital signs: Vital Signs Temperature 97.8 F 12/23/19 19:52 Pulse Rate 87 12/24/19 01:01 Respiratory Rate 16 12/24/19 01:01 Blood Pressure 132/87 12/24/19 01:01 Pulse Oximetry 96 12/24/19 01:01 MDM - General Adult MDM Narrative: Medical decision making narrative: Brenna presents here with dystonic movements likely from her medications. Her symptoms have resolved after Cogentin and Ativan. Patient is stable for discharge and is to follow-up with PCP in 3 to 5 days return if worsening. Lab Data: Labs: Lab Results 12/23/19 12/23/19 12/23/19 Range/Units 19:47 19:47 22:19 WBC 11.7 H (4.0-10.0) 10^3/ uL RBC 4.65 (4.1-5.3) 10^6/u L Hgb 13.9 (11.5-15.3) g/dL Hct 42.9 (37.0-47.0) % MCV 92.3 (81-99) fL MCH 29.9 (28.0-34.0) pg MCHC 32.4 (30.0-36.0) g/dL RDW 13.2 (12.1-15.1) % Plt Count 348 (130-400) 10^3/c mm MPV 10.7 H (7.4-10.4) fL Neut % (Auto) 48.3 % Lymph % (Auto) 40.0 % [place] % (Auto) 5.8 % Eos % (Auto) 4.1 % Baso % (Auto) 1.5 % Neut # (Auto) 5.66 (1.8-7.7) 10^3/u L Lymph # (Auto) 4.7 (0.8-4.8) 10^3/u L [place] # (Auto) 0.7 (0.2-0.9) 10^3/u L Eos # (Auto) 0.5 (0.0-0.8) 10^3/u L Baso # (Auto) 0.2 H (0.0-0.1) 10^3/u L Nucleated RBC % (a uto) 0 % Nucleated RBCs # 0.0 /100WBC Sodium 140 (136-145) mmol/L Potassium 4.0 (3.5-5.1) mmol/L Chloride 109 H (98-107) mmol/L Carbon Dioxide 19 L (22-29) mmol/L Anion Gap 16.0 (5-19) BUN 28 H (6-20) mg/dL Creatinine 1.0 H (0.5-0.9) mg/dL GFR Calculation 57.8 L (90-130) mL/min Glucose 98 (65-115) mg/dL Calculated Osmolal ity 287 (285-295) mOsm/k g Calcium 9.8 (8.5-10.5) mg/dL Total Bilirubin 0.2 (0.15-1.2) mg/dL AST 16 (0-32) U/L ALT 16 (0-33) U/L Alkaline Phosphata se 62 (35-105) IU/L Creatine Kinase 55 (26-192) U/L Total Protein 7.5 (6.6-8.7) g/dL Albumin 4.5 (3.5-5.2) g/dL Globulin 3.0 (1.3-4.6) g/dL Urine Color Yellow (Yellow) Urine Appearance Sl hazy (CLEAR) Urine pH 6 (5-7) Ur Specific Gravit y 1.020 (1.005-1.030) Urine Protein Neg (Negative) Urine Glucose (UA) Norm (Normal) Urine Ketones Negative (Negative) Urine Blood 2+ H (Negative) Urine Nitrate Negative (Negative) Urine Bilirubin Neg (Negative) Urine Urobilinogen Norm (Negative) mg/dL Ur Leukocyte Marisa ase 1+ H (Negative) Urine RBC 0-4 H (0-2) /hpf Urine WBC 10-15 H (0-5) /hpf Ur Squamous Epith Cells 10-15 H (0-5) /hpf Amorphous Sediment Not Reportable Urine Bacteria 1+ H (NONE) /hpf Urine Opiates Scre en (Negative) ng/mL Ur Barbiturates Sc reen (Negative) ng/mL Ur Phencyclidine S crn (Negative) ng/mL Ur Amphetamines Sc reen (Negative) ng/mL U Benzodiazepines Scrn (Negative) ng/mL Urine Cocaine Scre en (Negative) ng/mL U Marijuana (THC) Screen (Negative) ng/mL Ethyl Alcohol < 10 (0-10) mg/dL 12/23/19 Range/Units 22:19 WBC (4.0-10.0) 10^3/ uL RBC (4.1-5.3) 10^6/u L Hgb (11.5-15.3) g/dL Hct (37.0-47.0) % MCV (81-99) fL MCH (28.0-34.0) pg MCHC (30.0-36.0) g/dL RDW (12.1-15.1) % Plt Count (130-400) 10^3/c mm MPV (7.4-10.4) fL Neut % (Auto) % Lymph % (Auto) % [place] % (Auto) % Eos % (Auto) % Baso % (Auto) % Neut # (Auto) (1.8-7.7) 10^3/u L Lymph # (Auto) (0.8-4.8) 10^3/u L [place] # (Auto) (0.2-0.9) 10^3/u L Eos # (Auto) (0.0-0.8) 10^3/u L Baso # (Auto) (0.0-0.1) 10^3/u L Nucleated RBC % (a uto) % Nucleated RBCs # /100WBC Sodium (136-145) mmol/L Potassium (3.5-5.1) mmol/L Chloride (98-107) mmol/L Carbon Dioxide (22-29) mmol/L Anion Gap (5-19) BUN (6-20) mg/dL Creatinine (0.5-0.9) mg/dL GFR Calculation (90-130) mL/min Glucose (65-115) mg/dL Calculated Osmolal ity (285-295) mOsm/k g Calcium (8.5-10.5) mg/dL Total Bilirubin (0.15-1.2) mg/dL AST (0-32) U/L ALT (0-33) U/L Alkaline Phosphata se (35-105) IU/L Creatine Kinase (26-192) U/L Total Protein (6.6-8.7) g/dL Albumin (3.5-5.2) g/dL Globulin (1.3-4.6) g/dL Urine Color (Yellow) Urine Appearance (CLEAR) Urine pH (5-7) Ur Specific Gravit y (1.005-1.030) Urine Protein (Negative) Urine Glucose (UA) (Normal) Urine Ketones (Negative) Urine Blood (Negative) Urine Nitrate (Negative) Urine Bilirubin (Negative) Urine Urobilinogen (Negative) mg/dL Ur Leukocyte Marisa ase (Negative) Urine RBC (0-2) /hpf Urine WBC (0-5) /hpf Ur Squamous Epith Cells (0-5) /hpf Amorphous Sediment Urine Bacteria (NONE) /hpf Urine Opiates Scre en Negative (Negative) ng/mL Ur Barbiturates Sc reen Negative (Negative) ng/mL Ur Phencyclidine S crn Negative (Negative) ng/mL Ur Amphetamines Sc reen Negative (Negative) ng/mL U Benzodiazepines Scrn Negative (Negative) ng/mL Urine Cocaine Scre en Negative (Negative) ng/mL U Marijuana (THC) Screen Negative (Negative) ng/mL Ethyl Alcohol (0-10) mg/dL Discharge Plan Discharge Patient Disposition: Home Clinical Impression: Dystonic movements Condition: Stable Prescriptions: No Action tizanidine 2 mg tablet 2 mg PO BID Qty: 60 RF: 2 Spiriva with HandiHaler 18 mcg capsule, w/inhalation device 1 cap INHALATION DAILY Qty: 30 RF: 2 sucralfate [Carafate] 1 gram tablet 1 gm PO BID Qty: 60 RF: 2 magnesium oxide 400 mg magnesium tablet 400 mg PO BID Qty: 60 RF: 2 Trulicity 0.75 mg/0.5 mL pen injector 0.75 mg SUBCUT Q7D Qty: 2 RF: 2 Symbicort 160-4.5 mcg/actuation HFA aerosol inhaler 2 puff INHALATION Q12H Qty: 10.2 RF: 2 lisinopril 5 mg tablet 5 mg PO DAILY Qty: 30 RF: 2 aripiprazole [Abilify] 20 mg tablet 20 mg PO DAILY Qty: 30 RF: 2 sertraline [Zoloft] 100 mg tablet 100 mg PO DAILY Qty: 30 RF: 2 zonisamide 50 mg capsule 50 mg PO BID Qty: 60 RF: 2 erythromycin 5 mg/gram (0.5 %) ointment 1 applic ophthalmic (eye) Q12H Qty: 1 RF: 0 acetaminophen [Tylenol] 325 mg Tablet 325 - 650 mg PO Q4H PRN (Reason: Pain) RF: 0 Multiple Vitamins Tablet 1 tab PO DAILY RF: 0 gabapentin 300 mg Capsule 300 mg PO BEDTIME RF: 0 ProAir HFA 90 mcg/actuation Hfa Aerosol Inhaler 2 puff INHALATION Q6H PRN (Reason: Shortness Of Breath) RF: 0 fenofibrate nanocrystallized 145 mg tablet 145 mg PO DAILY RF: 0 benztropine 1 mg tablet 1 mg PO BEDTIME RF: 0 omeprazole 20 mg capsule,delayed release(DR/EC) 20 mg PO DAILY RF: 0 Remeron 15 mg tablet 15 mg PO BEDTIME RF: 0 Cbd Oil See Rx Instructions .ROUTE .COMPLEX RF: 0 Adult Aspirin Regimen 81 mg tablet,delayed release (DR/EC) 81 mg PO DAILY Qty: 30 RF: 0 Discharge Orders: Discharge Order (Routine); Ordered 12/24/19 Ordered By: Daniella Ortiz Referrals: Lucila Thomas, USER INTERFACE ARTIST-C [Primary Care Provider] - 1-3 days Discharge Diet: Advance as tolerated Discharge Activity: Resume usual activity Patient Instructions: Tardive Dyskinesia Discharge Date/Time: 12/24/19 01:08 Coding Level of Care Code ED Material Dispatcher for Chg Fwd Exam Comprehensive
[2019-12-23 22:11] VITALS: BP 154/98; PULSE 87; RESP 16; O2SAT 98
[2019-12-23 22:44] LABS: Amphetamines Screen Urine Negative (Negative); Barbiturates Screen Urine Negative (Negative); Benzodiazepines Screen Urine Negative (Negative); Cocaine Screen Urine Negative (Negative); Opiate Screen Urine Negative (Negative); PCP Screen Urine Negative (Negative); THC Screen Urine Negative (Negative)
[2019-12-23 22:45] LABS: Urine Appearance SL Hazy (CLEAR); Urine Color Yellow (Yellow); pH Urine 6 (5-7)
[2019-12-23 22:46] LABS: Add Urine Microscopic? YES; Bacteria Urine 1+ /hpf; Bilirubin Urine Neg (Negative); Blood Urine 2+ (Negative); Glucose Urine UA Norm (Normal); Ketones Urine Negative (Negative); Leukocyte Esterase Urine 1+ (Negative); Nitrate Urine Negative (Negative); Protein Urine Neg (Negative); RBC Urine 0-4 /hpf (0-2); Urobilinogen Urine Norm (Negative)
[2019-12-24] MEDS: LORazepam 2 mg/mL INJ 1 mL IVP (00:28)
[2019-12-24] MEDS: benztropine 1 mg/mL SDV 2 mL 2 MG IM (00:28)
[2019-12-24 01:01] VITALS: BP 132/87; PULSE 87; RESP 16; O2SAT 96
== END 2019-12-24 01:08 | disposition home or self-care (01) ==
PROVIDERS: Family Medicine; Emergency Provider Emergency Medicine; PCP Nurse Practitioner
DX: R25.8 Other abnormal involuntary movements (principal); Z79.82 Long term (current) use of aspirin; J44.9 Chronic obstructive pulmonary disease, unspecified; E11.9 Type 2 diabetes mellitus without complications; F17.210 Nicotine dependence, cigarettes, uncomplicated; Z79.899 Other long term (current) drug therapy
CPT/HCPCS: 12345; 36415; 70450; 80053; 80306; 80307; 81001; 82550; 85025; 93005; 96374; 96375; 99283; J0515; J2060

== ENCOUNTER 2019-12-25 21:24 | Emergency (ER) | payer MEDICARE, MEDICAID, SELFPAY ==
[2019-12-25 21:36] VITALS: BP 93/62; PULSE 68; RESP 17; TEMP 36.6; O2SAT 98; BMI 27.3
[2019-12-25 22:09] VITALS: BP 111/71; PULSE 69; RESP 16; O2SAT 98
--- NOTE | 2019-12-25 22:29 | ED_ITS ---
HPI - Back Pain/Injury General: Chief Complaint: Back Pain/Injury Stated Complaint: radiating pain in low left back Time Seen by Provider: 12/25/19 22:28 Source: patient Mode of arrival: ambulatory Limitations: no limitations History of Present Illness: HPI Narrative: Patient comes in today for complaints of right flank pain radiating into his right buttocks. Patient appears mildly unwell. Patient reports being in bed for the last 3 days due to not feeling well. Patient does have some depression issues which he takes multiple medications for. Patient does not think she has been running a fever. Patient reports movement aggravates the pain. Review of Systems General: Reports: 10 or more systems reviewed and unremarkable except in HPI and below Musc: Reports: back pain PFSH ED PFSH: Medical History Cannabis dependence, uncomplicated Cervical disc disorder with myelopathy of mid-cervical region Cervical post-laminectomy syndrome COPD (chronic obstructive pulmonary disease) Diabetes mellitus GERD with esophagitis History of methamphetamine abuse Major depressive disorder, recurrent severe without psychotic features Schizoaffective disorder, depressive type Smoker Surgical History History of angiography Brain June 2019 History of brain surgery June 21, 2019 endovascular treatment of dural AV fistula History of cervical spinal arthrodesis C4-C6 ACDFF; [place], [place]; 11/01/2015 History of hysterectomy Family History Mother Cancer Heart disease Social History Smoking and tobacco status: current every day smoker Second hand smoke exposure: Yes Smoking risk assessment/counseling performed?: Yes Alcohol intake: never Desire information about alcohol rehabilitation?: No Counseling given: No Desire information about substance/drug rehabilitation?: No Counseling given: No Adopted: No Caregiver/support person: No Lives independently: Yes Household members: spouse Marital status: Number of children: 0 service: No Current occupational status: unemployed Current occupational exposures/hazards: No Pets and animals: Yes History of recent travel: No Current gender identity: Female Physical Exam Const: COMMON NORMALS: no acute distress and patient oriented x3 GENERAL APPEARANCE: cooperative HENMT: COMMON NORMALS: normocephalic and Normal external nose present HEAD & SCALP: normal to inspection and normocephalic NOSE: Normal external nose present MOUTH: Normal oral and palatal mucosa present THROAT: posterior oropharynx normal Eye: GENERAL EYE: appearance normal, both eyes and all related structures Neck/C-Spine: COMMON NORMALS: full ROM Lymph: LYMPHATIC: no lymphadenopathy noted Chest: COMMONS NORMALS: normal inspection of the chest Resp: COMMON NORMALS: normal respiratory effort EFFORT & INSPECTION: Yes able to speak in complete sentences Cardio: COMMON NORMALS: regular rate and regular rhythm RATE: regular rate RHYTHM: regular rhythm GI: COMMON NORMALS: non-tender Back/Pelvis: LUMBAR SPINE/LOWER BACK: Yes paraspinal muscle tenderness Lumbar paraspinal muscle tenderness: right Extremity: COMMON NORMALS: normal to inspection Neuro: COMMON NORMALS: patient oriented x3 and moves all extremities Psych: COMMON NORMALS: mental status grossly normal and cooperative Skin: COMMON NORMALS: no rashes or lesions noted GENERAL SKIN EXAM: no rashes or lesions noted Course Vital Signs: Vital signs: Vital Signs Temperature 97.9 F 12/25/19 21:36 Pulse Rate 68 12/26/19 01:00 Respiratory Rate 16 12/26/19 01:00 Blood Pressure 103/48 12/26/19 01:00 Pulse Oximetry 95 12/26/19 01:00 MDM - Back Pain/Injury MDM Narrative: Medical decision making narrative: Patient comes in today with complaints of right side lower back pain. On exam patient has palpable te nderness of the paraspinous muscles on the right and left side. Respirations are even lungs are clear to auscultation. Abdomen soft nontender. Skin is warm and dry. Differential diagnosis includes but not limited to pyelonephritis, urinary tract infection, renal calculi, intervertebral disc disease, facet arthropathy, low back pain. CT scan of the abdomen pelvis noted no obstructing renal calculi or other acute process limited by no IVP dye. CBC showed a mild elevation in white blood cell count of 12,000. Sodium was 135 and creatinine was 1.1. Urinalysis showed positive leukocyte esterase. Patient also had quite a bit of skin cells so in the urine. Suspect low back pain probably due to patient's chronic problem. Patient will be treated though for a urinary tract infection with cephalexin and 1 g Rocephin. Patient had improvement of symptoms after 15 mg of Toradol and 500 cc of IV fluids. Went ahead and gave 1 g Rocephin IV and another liter of fluid due to concerns for mild dehydration. Patient reported understanding of care plan and need for follow-up Lab Data: Labs: Lab Results 12/25/19 12/25/19 12/25/19 Range/Units 23:40 23:40 23:55 WBC 12.2 H (4.0-10.0) 10^3/ uL RBC 4.51 (4.1-5.3) 10^6/u L Hgb 13.7 (11.5-15.3) g/dL Hct 41.5 (37.0-47.0) % MCV 92.0 (81-99) fL MCH 30.4 (28.0-34.0) pg MCHC 33.0 (30.0-36.0) g/dL RDW 13.0 (12.1-15.1) % Plt Count 319 (130-400) 10^3/c mm MPV 10.7 H (7.4-10.4) fL Neut % (Auto) 42.6 % Lymph % (Auto) 46.0 % [place] % (Auto) 6.1 % Eos % (Auto) 3.8 % Baso % (Auto) 1.2 % Neut # (Auto) 5.21 (1.8-7.7) 10^3/u L Lymph # (Auto) 5.6 H (0.8-4.8) 10^3/u L [place] # (Auto) 0.8 (0.2-0.9) 10^3/u L Eos # (Auto) 0.5 (0.0-0.8) 10^3/u L Baso # (Auto) 0.2 H (0.0-0.1) 10^3/u L Nucleated RBC % (a uto) 0 % Nucleated RBCs # 0.0 /100WBC Sodium 135 L (136-145) mmol/L Potassium 3.8 (3.5-5.1) mmol/L Chloride 103 (98-107) mmol/L Carbon Dioxide 21 L (22-29) mmol/L Anion Gap 14.8 (5-19) BUN 20 (6-20) mg/dL Creatinine 1.1 H (0.5-0.9) mg/dL GFR Calculation 51.8 L (90-130) mL/min Glucose 90 (65-115) mg/dL Calculated Osmolal ity 276 L (285-295) mOsm/k g Calcium 9.5 (8.5-10.5) mg/dL Total Bilirubin 0.2 (0.15-1.2) mg/dL AST 17 (0-32) U/L ALT 16 (0-33) U/L Alkaline Phosphata se 54 (35-105) IU/L Total Protein 7.2 (6.6-8.7) g/dL Albumin 4.3 (3.5-5.2) g/dL Globulin 2.9 (1.3-4.6) g/dL Urine Color Yellow (Yellow) Urine Appearance Sl cloudy A (CLEAR) Urine pH 6 (5-7) Ur Specific Gravit y 1.015 (1.005-1.030) Urine Protein Neg (Negative) Urine Glucose (UA) Norm (Normal) Urine Ketones Negative (Negative) Urine Blood Trace H (Negative) Urine Nitrate Negative (Negative) Urine Bilirubin Neg (Negative) Urine Urobilinogen Norm (Negative) mg/dL Ur Leukocyte Marisa ase 2+ H (Negative) Urine RBC 0-4 H (0-2) /hpf Urine WBC 10-15 H (0-5) /hpf Ur Squamous Epith Cells 25-40 H (0-5) /hpf Amorphous Sediment Not Reportable Urine Bacteria 1+ H (NONE) /hpf Discharge Plan Discharge Patient Disposition: Home Clinical Impression: Low back pain Qualifiers: Chronicity: acute Back pain laterality: right Sciatica presence: without sciatica Qualified Code(s): M54.5 - Low back pain UTI (urinary tract infection) Qualifiers: Urinary tract infection type: acute cystitis Hematuria presence: without hematuria Qualified Code(s): N30.00 - Acute cystitis without hematuria Condition: Stable Prescriptions: New cephalexin 500 mg tablet 500 mg PO TID 7 Days Qty: 21 RF: 0 naproxen 500 mg tablet 500 mg PO BID Qty: 20 RF: 0 No Action tizanidine 2 mg tablet 2 mg PO BID Qty: 60 RF: 2 Spiriva with HandiHaler 18 mcg capsule, w/inhalation device 1 cap INHALATION DAILY Qty: 30 RF: 2 sucralfate [Carafate] 1 gram tablet 1 gm PO BID Qty: 60 RF: 2 magnesium oxide 400 mg magnesium tablet 400 mg PO BID Qty: 60 RF: 2 Trulicity 0.75 mg/0.5 mL pen injector 0.75 mg SUBCUT Q7D Qty: 2 RF: 2 Symbicort 160-4.5 mcg/actuation HFA aerosol inhaler 2 puff INHALATION Q12H Qty: 10.2 RF: 2 lisinopril 5 mg tablet 5 mg PO DAILY Qty: 30 RF: 2 aripiprazole [Abilify] 20 mg tablet 20 mg PO DAILY Qty: 30 RF: 2 sertraline [Zoloft] 100 mg tablet 100 mg PO DAILY Qty: 30 RF: 2 zonisamide 50 mg capsule 50 mg PO BID Qty: 60 RF: 2 erythromycin 5 mg/gram (0.5 %) ointment 1 applic ophthalmic (eye) Q12H Qty: 1 RF: 0 acetaminophen [Tylenol] 325 mg Tablet 325 - 650 mg PO Q4H PRN (Reason: Pain) RF: 0 Multiple Vitamins Tablet 1 tab PO DAILY RF: 0 gabapentin 300 mg Capsule 300 mg PO BEDTIME RF: 0 ProAir HFA 90 mcg/actuation Hfa Aerosol Inhaler 2 puff INHALATION Q6H PRN (Reason: Shortness Of Breath) RF: 0 fenofibrate nanocrystallized 145 mg tablet 145 mg PO DAILY RF: 0 benztropine 1 mg tablet 1 mg PO BEDTIME RF: 0 omeprazole 20 mg capsule,delayed release(DR/EC) 20 mg PO DAILY RF: 0 Remeron 15 mg tablet 15 mg PO BEDTIME RF: 0 Cbd Oil See Rx Instructions .ROUTE .COMPLEX RF: 0 Adult Aspirin Regimen 81 mg tablet,delayed release (DR/EC) 81 mg PO DAILY Qty: 30 RF: 0 Discharge Orders: Discharge Order (Routine); Ordered 12/26/19 Ordered By: Hunter Loya Referrals: Lucila Thomas, [facility]C [Primary Care Provider] - Discharge Diet: Usual diet Discharge Activity: Increase activity as tolerated Patient Instructions: Back Pain (ED) Activity Restrictions/Additional Instructions: Home and rest, Drink plenty of fluids. Activity as tolerated. Healthy diet and exercise. Follow-up with primary care in one week, Return to ER for new conecerns Coding Level of Care Code ED Mitochondrial Disorders Counselor for Chg Fwd Exam Comprehensive
[2019-12-25 23:00] VITALS: BP 99/50; PULSE 68; RESP 16; O2SAT 98
[2019-12-25] MEDS: ketorolac 30 mg/mL INJ 15 MG IVP (23:08)
[2019-12-25 23:30] VITALS: BP 93/46; PULSE 64; RESP 20; O2SAT 97
[2019-12-25 23:51] LABS: Basophils # 0.2 10^3/uL (0.0-0.1); Basophils % 1.2 %; Eosinophils # 0.5 10^3/uL (0.0-0.8); Eosinophils % 3.8 %; Hematocrit 41.5 % (37.0-47.0); Hemoglobin 13.7 g/dL (11.5-15.3); Lymphocytes # 5.6 10^3/uL (0.8-4.8); Mean Corpuscular Hemoglobin 30.4 pg (28.0-34.0); Mean Platelet Volume 10.7 fL (7.4-10.4); Monocytes # 0.8 10^3/uL (0.2-0.9); Monocytes % 6.1 %; Neutrophils # 5.21 10^3/uL (1.8-7.7); Neutrophils % 42.6 %; Nucleated Red Blood Cells % 0 %; Platelet Count 319 10^3/cmm (130-400); Red Blood Count 4.51 10^6/uL (4.1-5.3); White Blood Count 12.2 10^3/uL (4.0-10.0)
[2019-12-25 23:57] VITALS: BP 93/46; PULSE 72; RESP 16; O2SAT 96
[2019-12-26 00:07] LABS: Alanine Aminotransferase 16 U/L (0-33); Albumin Level 4.3 g/dL (3.5-5.2); Alkaline Phosphatase 54 IU/L (35-105); Anion Gap 14.8 (5-19); Aspartate Amino Transferase 17 U/L (0-32); Blood Urea Nitrogen 20 mg/dL (6-20); Calcium 9.5 mg/dL (8.5-10.5); Carbon Dioxide 21 mmol/L (22-29); Chloride 103 mmol/L (98-107); Globulin 2.9 g/dL (1.3-4.6); Glomerular Filtration Rate 51.8 mL/min (90-130); Glucose 90 mg/dL (65-115); Osmolality Calculated 276 mOsm/kg (285-295); Potassium 3.8 mmol/L (3.5-5.1); Sodium 135 mmol/L (136-145); Total Bilirubin 0.2 mg/dL (0.15-1.2); Total Protein 7.2 g/dL (6.6-8.7)
--- NOTE | 2019-12-26 00:11 | CTR_ITS ---
PROCEDURE INFORMATION: Exam: CT Abdomen And Pelvis Without Contrast Exam date and time: 12/26/2019 12:12 AM Age: 54 years old Clinical indication: Abdominal pain; Right; Prior surgery; Surgery date: 6+ months; Surgery type: Hyst; Patient HX: C/O R flank/back pain; Additional info: Right flank pain TECHNIQUE: Imaging protocol: Computed tomography of the abdomen and pelvis without contrast. Radiation optimization: All CT scans at this facility use at least one of these dose optimization techniques: automated exposure control; mA and/or kV adjustment per patient size (includes targeted exams where dose is matched to clinical indication); or iterative reconstruction. COMPARISON: CT abdomen pelvis w con* [id number] 09/10/2018 11:30 AM RADIATION DOSE METRICS: Total DLP (mGy-cm): 1123.44 FINDINGS: Limitations: The absence of intravenous contrast lessens the sensitivity of this study for solid organ abnormalities. Lungs: There are calcified granulomas at the lung bases. Liver: There is no focal abnormality within the liver. Gallbladder and bile ducts: Normal. No calcified stones. No ductal dilation. Pancreas: The pancreas is normal. Spleen: The spleen is normal. Adrenals: Normal. No mass. Kidneys and ureters: There is a right renal collecting system calcification. The left kidney is normal. There is no evidence of hydronephrosis. There is no stone along the course of either ureter. Stomach and bowel: There is no evidence of colitis/diverticulitis. Appendix: A normal appendix is identified. Intraperitoneal space: Unremarkable. No free air. No significant fluid collection. Vasculature: The aorta demonstrates mild atherosclerotic calcification. Lymph nodes: Unremarkable. No enlarged lymph nodes. Bladder: Unremarkable as visualized. Reproductive: There has been a hysterectomy. Bones/joints: Unremarkable. No acute fracture. Soft tissues: Unremarkable. CT/CT kidney stone [id number] IMPRESSION: 1. Nonobstructing right kidney stone not significantly changed from 09/10/2018. 2. No ureteral calculus is identified. Radiation Dose CTDIVOL = (mGy): DLP = 1123.44 (mGy-cm)
[2019-12-26] MEDS: sodium chloride 0.9% 500 ML 999 ML IV (00:31)
[2019-12-26 00:32] VITALS: BP 86/45; PULSE 69; RESP 16; O2SAT 98
[2019-12-26 00:38] LABS: Slide Review Slide Review Perform
[2019-12-26 00:39] LABS: Add Urine Microscopic? YES; Bilirubin Urine Neg (Negative); Blood Urine Trace (Negative); Glucose Urine UA Norm (Normal); Ketones Urine Negative (Negative); Leukocyte Esterase Urine 2+ (Negative); Nitrate Urine Negative (Negative); Protein Urine Neg (Negative); Specific Gravity, Urine 1.015 (1.005-1.030); Urine Color Yellow (Yellow); Urobilinogen Urine Norm (Negative); pH Urine 6 (5-7)
[2019-12-26 00:49] LABS: Add Urine Culture? No; Bacteria Urine 1+ /hpf; RBC Urine 0-4 /hpf (0-2); Squamous Epithelial Cell Urine 25-40 /hpf (0-5)
[2019-12-26 01:00] VITALS: BP 103/48; PULSE 68; RESP 16; O2SAT 95
[2019-12-26] MEDS: cefTRIAXone 1,000 MG in sodium chloride 0.9% (plus) 50 ML 100 MG IV (01:09)
[2019-12-26 02:02] VITALS: BP 102/53; PULSE 66; RESP 16; TEMP 36.6; O2SAT 95
== END 2019-12-26 02:02 | disposition home or self-care (01) ==
PROVIDERS: Emergency Provider Nurse Practitioner Family; PCP Nurse Practitioner
DX: N30.00 Acute cystitis without hematuria (principal); M54.5 Low back pain; Z79.82 Long term (current) use of aspirin; F17.210 Nicotine dependence, cigarettes, uncomplicated; J44.9 Chronic obstructive pulmonary disease, unspecified; E11.9 Type 2 diabetes mellitus without complications
CPT/HCPCS: 12345; 36415; 74176; 80053; 81001; 85025; 96365; 99283; J0696; J7040

== ENCOUNTER 2019-12-30 17:39 | Observation (INO) | payer MEDICARE, SELFPAY ==
[2019-12-30 17:44] VITALS: PULSE 93; RESP 18; O2SAT 99; BMI 27.3
--- NOTE | 2019-12-30 20:16 | W.ED.ABDPA2 ---
HPI - Abdominal Pain General: Chief Complaint: Abdominal Pain Stated Complaint: ABDOMINAL PAIN Time Seen by Provider: 12/30/19 20:11 Source: patient Mode of arrival: ambulatory Limitations: no limitations History of Present Illness: HPI narrative: 54-year-old female who is here with chronic abdominal pain. States her he has diffuse abdominal pain started roughly day ago. States pain is severe in nature. Denies any worsening improving factors. Denies any fever. Denies any vomiting or diarrhea. MD elicited complaint: abdominal pain Associated Symptoms: Denies chills, dysuria and fever(s) Review of Systems Const: Denies: fever(s), chills, body aches or change in appetite Eyes: Denies: blurry vision or eye discomfort ENMT: Denies: throat pain or dental pain Card: Denies: chest pain Resp: Denies: dyspnea GI: Reports: abdominal pain : Denies: dysuria Musc: Denies: neck pain or back pain Skin/Breast: Denies: rash Neuro: Denies: headache(s) Psych: Denies: depression Pablo/Lymph: Denies: easy bruising All/Imm: Denies: urticaria PFSH ED PFSH: Medical History Cannabis dependence, uncomplicated Cervical disc disorder with myelopathy of mid-cervical region Cervical post-laminectomy syndrome COPD (chronic obstructive pulmonary disease) Diabetes mellitus GERD with esophagitis History of methamphetamine abuse Major depressive disorder, recurrent severe without psychotic features Schizoaffective disorder, depressive type Smoker Surgical History History of angiography Brain June 2019 History of brain surgery June 21, 2019 endovascular treatment of dural AV fistula History of cervical spinal arthrodesis C4-C6 ACDFF; [place], [place]; 11/01/2015 History of hysterectomy Family History Mother Cancer Heart disease Social History Smoking and tobacco status: current every day smoker Second hand smoke exposure: Yes Smoking risk assessment/counseling performed?: Yes Alcohol intake: never Desire information about alcohol rehabilitation?: No Counseling given: No Desire information about substance/drug rehabilitation?: No Counseling given: No Adopted: No Caregiver/support person: No Lives independently: Yes Household members: spouse Marital status: Number of children: 0 service: No Current occupational status: unemployed Current occupational exposures/hazards: No Pets and animals: Yes History of recent travel: No Current gender identity: Female Physical Exam Const: COMMON NORMALS: no acute distress, patient oriented x3 and healthy appearing HENMT: COMMON NORMALS: normocephalic and atraumatic HEAD & SCALP: normocephalic and atraumatic Eye: COMMON NORMALS: Equal, round and reactive pupils present and EOMs intact bilaterally PUPIL: Yes Equal, round and reactive pupils present Neck/C-Spine: COMMON NORMALS: full ROM and supple Chest: COMMONS NORMALS: normal inspection of the chest and normal palpation of entire chest wall Resp: COMMON NORMALS: normal respiratory effort, No retractions, No use of accessory muscles and clear to auscultation bilaterally AUSCULTATION: clear to auscultation bilaterally Cardio: COMMON NORMALS: regular rate, regular rhythm and No murmurs present (Cardio) RATE: regular rate RHYTHM: regular rhythm GI: COMMON NORMALS: Normal to inspection, nondistended, normoactive bowel sounds present, Soft to palpation, non-tender and no masses PALPATION: Yes Soft to palpation Extremity: COMMON NORMALS: normal to inspection and full ROM Neuro: COMMON NORMALS: patient oriented x3, moves all extremities and no focal motor deficits Psych: COMMON NORMALS: mental status grossly normal, Normal thought process present and cooperative THOUGHT PROCESS: Normal thought process present Skin: COMMON NORMALS: no rashes or lesions noted and no wounds GENERAL SKIN EXAM: no rashes or lesions noted Course Vital Signs: Vital signs: Vital Signs Pulse Rate 98 12/30/19 20:30 Respiratory Rate 20 H 12/30/19 20:30 Blood Pressure 101/84 12/30/19 20:30 Pulse Oximetry 98 12/30/19 20:30 MDM - Abdominal Pain MDM Narrative: Medical decision making narrative: Patient presents with abdominal pain and was found to have appendicitis. I spoke to Dr. Norris who is admitting. Patient started on IV antibiotics. She has been stable down in the ER. Lab Data: Labs: Lab Results 12/30/19 12/30/19 Range/Units 20:19 20:19 WBC 28.0 H (4.0-10.0) 10^3/ uL RBC 4.70 (4.1-5.3) 10^6/u L Hgb 14.2 (11.5-15.3) g/dL Hct 42.7 (37.0-47.0) % MCV 90.9 (81-99) fL MCH 30.2 (28.0-34.0) pg MCHC 33.3 (30.0-36.0) g/dL RDW 12.9 (12.1-15.1) % Plt Count 338 (130-400) 10^3/c mm MPV 11.5 H (7.4-10.4) fL Neut % (Auto) 88.1 % Lymph % (Auto) 4.6 % [place] % (Auto) 5.9 % Eos % (Auto) 0.1 % Baso % (Auto) 0.5 % Neut # (Auto) 24.63 H (1.8-7.7) 10^3/u L Lymph # (Auto) 1.3 (0.8-4.8) 10^3/u L [place] # (Auto) 1.6 H (0.2-0.9) 10^3/u L Eos # (Auto) 0.0 (0.0-0.8) 10^3/u L Baso # (Auto) 0.2 H (0.0-0.1) 10^3/u L Nucleated RBC % (a uto) 0 % Nucleated RBCs # 0.0 /100WBC Sodium 136 (136-145) mmol/L Potassium 3.7 (3.5-5.1) mmol/L Chloride 105 (98-107) mmol/L Carbon Dioxide 16 L (22-29) mmol/L Anion Gap 18.7 (5-19) BUN 23 H (6-20) mg/dL Creatinine 1.1 H (0.5-0.9) mg/dL GFR Calculation 51.8 L (90-130) mL/min Glucose 136 H (65-115) mg/dL Calculated Osmolal ity 288 (285-295) mOsm/k g Calcium 10.6 H (8.5-10.5) mg/dL Total Bilirubin 0.3 (0.15-1.2) mg/dL AST 19 (0-32) U/L ALT 17 (0-33) U/L Alkaline Phosphata se 59 (35-105) IU/L Total Protein 7.7 (6.6-8.7) g/dL Albumin 4.6 (3.5-5.2) g/dL Globulin 3.1 (1.3-4.6) g/dL Lipase 46 (13-60) U/L Imaging Data ^: CT Abd/Pel: Radiologist's impression: [address] [place] [address] CT Scan Report Signed with Addenda Patient: Brenna Francisco Unit #: [id number] : 1965 Age/Sex: 54 / F ADM Date: 12/30/19 Loc: ER Room/Bed: Attending Dr: Ordering Provider/Ordering MD: Daniella Ortiz MD Date of Service: 12/30/19 Procedure(s): CT abdomen pelvis w con* [id number] Accession Number(s): [id number] Report Number: [id number]/CT abdomen pelvis w con* [id number] CRITICAL RESULT: THIS REPORT CONTAINS FINDINGS THAT MAY BE CRITICAL TO PATIENT CARE. The findings were communicated with daniella Nuñez at 10:29 PM CDT on 12/30/2019. The findings were acknowledged and understood. Radiation Dose CTDIVOL = (mGy): DLP = 650.36 (mGy-cm) Addendum Dictated By: Chance Bazzi MD Addendum Signed By: Chance Bazzi MD Signed Date/Time: 12/30/19 2229 Addendum Cosigned By: PROCEDURE INFORMATION: Exam: CT Abdomen And Pelvis With Contrast Exam date and time: 12/30/2019 9:13 PM Age: 54 years old Clinical indication: Nausea and vomiting; Abdominal pain; Localized; Left; Prior surgery; Surgery type: Hyst; Additional info: Abd pain TECHNIQUE: Imaging protocol: Computed tomography of the abdomen and pelvis with intravenous contrast. Radiation optimization: All CT scans at this facility use at least one of these dose optimization techniques: automated exposure control; mA and/or kV adjustment per patient size (includes targeted exams where dose is matched to clinical indication); or iterative reconstruction. Contrast material: OMNI 300; Contrast volume: 95 ml; Contrast route: INTRAVENOUS (IV); COMPARISON: CT kidney stone [id number] 12/26/2019 12:15 AM RADIATION DOSE METRICS: Total DLP (mGy-cm): 650.36 FINDINGS: Liver: Normal. No mass. Gallbladder and bile ducts: Normal. No calcified stones. No ductal dilation. Pancreas: Normal. No ductal dilation. Spleen: Normal. No splenomegaly. Adrenals: Normal. No mass. Kidneys and ureters: Normal. No hydronephrosis. Stomach and bowel: Diverticula are seen on the sigmoid colon. There are no inflammatory changes seen to suggest diverticulitis. Appendix: The appendix appears mildly dilated today measuring up to 7.6 mm. The appendix is fluid-filled and surrounded by hazy in strandy opacities within the appendiceal mesentery, findings compatible with mild appendicitis. This is new compared with 12/26/2019. Intraperitoneal space: Unremarkable. No free air. No significant fluid collection. Vasculature: Unremarkable. No abdominal aortic aneurysm. Lymph nodes: Unremarkable. No enlarged lymph nodes. Bladder: Unremarkable as visualized. Reproductive: Status post hysterectomy. Bones/joints: Unremarkable. No acute fracture. Soft tissues: Unremarkable. CT/CT abdomen pelvis w con* [id number] IMPRESSION: 1. Mildly prominent appendix measuring up to 7.6 mm surrounded by mild inflammatory changes , findings compatible with mild acute appendicitis. 2. Mild diverticulosis of the sigmoid colon. Discharge Plan Discharge Patient Disposition: Admitted As Inpatient Clinical Impression: Acute appendicitis Qualifiers: Acute appendicitis type: unspecified acute appendicitis type Qualified Code(s): K35.80 - Unspecified acute appendicitis Condition: Stable Referrals: Lucila Thomas, [facility]TA[facility]ING[facility]SEMBLER-C [Primary Care Provider] - Patient Instructions: Appendicitis (GEN) Coding Level of Care Code ED Speech And Language Clinician for [facility] Fw Exam Comprehensive
[2019-12-30] MEDS: diphenhydrAMINE 50 mg/mL SDV 1mL IVP (20:29)
[2019-12-30] MEDS: metoclopramide 5 mg/mL SDV 2 mL 10 MG IVP (20:29)
[2019-12-30 20:30] VITALS: BP 101/84; PULSE 98; RESP 20; O2SAT 98
[2019-12-30] MEDS: LORazepam 2 mg/mL INJ 1 mL 1 MG IVP (20:44)
[2019-12-30 21:02] LABS: Basophils # 0.2 10^3/uL (0.0-0.1); Basophils % 0.5 %; Eosinophils % 0.1 %; Hematocrit 42.7 % (37.0-47.0); Hemoglobin 14.2 g/dL (11.5-15.3); Lymphocytes # 1.3 10^3/uL (0.8-4.8); Lymphocytes % 4.6 %; Mean Corpuscular HGB Conc 33.3 g/dL (30.0-36.0); Mean Corpuscular Hemoglobin 30.2 pg (28.0-34.0); Mean Corpuscular Volume 90.9 fL (81-99); Mean Platelet Volume 11.5 fL (7.4-10.4); Monocytes # 1.6 10^3/uL (0.2-0.9); Monocytes % 5.9 %; Neutrophils # 24.63 10^3/uL (1.8-7.7); Neutrophils % 88.1 %; Nucleated Red Blood Cells % 0 %; Platelet Count 338 10^3/cmm (130-400); Red Cell Distribution Width 12.9 % (12.1-15.1)
--- NOTE | 2019-12-30 21:04 | CTR_ITS ---
PROCEDURE INFORMATION: Exam: CT Abdomen And Pelvis With Contrast Exam date and time: 12/30/2019 9:13 PM Age: 54 years old Clinical indication: Nausea and vomiting; Abdominal pain; Localized; Left; Prior surgery; Surgery type: Hyst; Additional info: Abd pain TECHNIQUE: Imaging protocol: Computed tomography of the abdomen and pelvis with intravenous contrast. Radiation optimization: All CT scans at this facility use at least one of these dose optimization techniques: automated exposure control; mA and/or kV adjustment per patient size (includes targeted exams where dose is matched to clinical indication); or iterative reconstruction. Contrast material: OMNI 300; Contrast volume: 95 ml; Contrast route: INTRAVENOUS (IV); COMPARISON: CT kidney stone [id number] 12/26/2019 12:15 AM RADIATION DOSE METRICS: Total DLP (mGy-cm): 650.36 FINDINGS: Liver: Normal. No mass. Gallbladder and bile ducts: Normal. No calcified stones. No ductal dilation. Pancreas: Normal. No ductal dilation. Spleen: Normal. No splenomegaly. Adrenals: Normal. No mass. Kidneys and ureters: Normal. No hydronephrosis. Stomach and bowel: Diverticula are seen on the sigmoid colon. There are no inflammatory changes seen to suggest diverticulitis. Appendix: The appendix appears mildly dilated today measuring up to 7.6 mm. The appendix is fluid-filled and surrounded by hazy in strandy opacities within the appendiceal mesentery, findings compatible with mild appendicitis. This is new compared with 12/26/2019. Intraperitoneal space: Unremarkable. No free air. No significant fluid collection. Vasculature: Unremarkable. No abdominal aortic aneurysm. Lymph nodes: Unremarkable. No enlarged lymph nodes. Bladder: Unremarkable as visualized. Reproductive: Status post hysterectomy. Bones/joints: Unremarkable. No acute fracture. Soft tissues: Unremarkable. CT/CT abdomen pelvis w con* [id number] IMPRESSION: 1. Mildly prominent appendix measuring up to 7.6 mm surrounded by mild inflammatory changes , findings compatible with mild acute appendicitis. 2. Mild diverticulosis of the sigmoid colon. Radiation Dose CTDIVOL = (mGy): DLP = 650.36 (mGy-cm)
[2019-12-30 21:23] LABS: Alanine Aminotransferase 17 U/L (0-33); Albumin Level 4.6 g/dL (3.5-5.2); Alkaline Phosphatase 59 IU/L (35-105); Anion Gap 18.7 (5-19); Aspartate Amino Transferase 19 U/L (0-32); Blood Urea Nitrogen 23 mg/dL (6-20); Calcium 10.6 mg/dL (8.5-10.5); Carbon Dioxide 16 mmol/L (22-29); Chloride 105 mmol/L (98-107); Globulin 3.1 g/dL (1.3-4.6); Glomerular Filtration Rate 51.8 mL/min (90-130); Glucose 136 mg/dL (65-115); Lipase 46 U/L (13-60); Osmolality Calculated 288 mOsm/kg (285-295); Potassium 3.7 mmol/L (3.5-5.1); Sodium 136 mmol/L (136-145); Total Bilirubin 0.3 mg/dL (0.15-1.2); Total Protein 7.7 g/dL (6.6-8.7)
[2019-12-30] MEDS: iohexol 300 mg/mL 100 mL Btl IV (21:53)
--- NOTE | 2019-12-30 22:38 | P.CONIM_ITS ---
Providers/Reason For Consult Consulting Physican/Specialty*: Hospitalist service Reason for Consult*: Schizoaffective disorder/COPD Primary Care Provider: KANDIS Roman History of Present Illness History of Present Illness Brenna Francisco is a 54 year old female who carries history of non-oxygen dependent COPD, schizoaffective/depressive disorder came in after experiencing abdominal pain. Patient is stating that for last 24 hours she has been experiencing abdominal pain mainly in her right lower quadrant, hypogastric region, she did not notice any fever but has been experiencing multiple episode of emesis with nausea. She was also suffering from UTI symptoms on Friday. Because of worsening of her symptoms she decided to come to the hospital for further evaluation. Diagnosis in the ER revealed acute appendicitis, she has received Zosyn and fluids in the ER, hospital service has been requested to comanage because of COPD and schizoaffective disorder. Patient smokes 1 pack a day with occasional use of marijuana, does not use oxygen at home, she is on multiple antipsychotics which obviously will be held during perioperative period. Review of Systems Const: Reports: chills, body aches, change in appetite and fatigue; Denies: fever(s) Eyes: Denies: change in vision ENMT: Denies: throat pain Card: Denies: chest pain Resp: Denies: dyspnea GI: Reports: abdominal pain, nausea and vomiting : Reports: flank pain, difficulty voiding and urinary frequency Musc: Denies: neck pain Skin/Breast: Denies: rash Neuro: Denies: headache(s) Psych: Reports: anxiety, depression, mood swings and irritability Endo: Denies: polyuria Pablo/Lymph: Denies: easy bruising All/Imm: Denies: urticaria Meds/Allergies Home Medications and Allergies Home Medications Medication Instructions Recorded Confirmed Last Taken Type aripiprazole 20 mg tablet 20 mg PO DAILY #30 tab 10/26/19 12/09/19 12/03/19 Rx sertraline 100 mg tablet 100 mg PO DAILY #30 tab 10/26/19 12/09/19 12/03/19 Rx zonisamide 50 mg capsule 50 mg PO BID #60 cap 10/28/19 12/09/19 12/03/19 Rx acetaminophen [Tylenol] 325 - 650 mg PO Q4H PRN 11/29/19 12/09/19 12/02/19 History 2 tabs erythromycin 5 mg/gram (0.5 %) eye 1 applic OPHTHALMIC (EYE) Q12H #1 12/02/19 12/09/19 Unknown Rx ointment (3.5 gram tube) gm Cbd Oil See Rx Instructions .ROUTE .COMPLEX 12/03/19 12/09/19 Unknown History Multiple Vitamins 1 tab PO DAILY 12/03/19 12/09/19 Unknown History ProAir HFA 2 puff INHALATION Q6H PRN 12/03/19 12/09/19 Unknown History Remeron 15 mg PO BEDTIME 12/03/19 12/09/19 12/02/19 History benztropine 1 mg PO BEDTIME 12/03/19 12/09/19 12/02/19 History budesonide-formoterol HFA 160 2 puff INHALATION Q12H #10.2 gm 12/03/19 12/09/19 Unknown Rx mcg-4.5 mcg/actuation aerosol inhaler dulaglutide 0.75 mg/0.5 mL 0.75 mg SUBCUT Q7D #2 ml 12/03/19 12/09/19 Unknown Rx subcutaneous pen injector fenofibrate nanocrystallized 145 mg PO DAILY 12/03/19 12/09/19 Unknown History gabapentin 300 mg PO BEDTIME 12/03/19 12/09/19 Unknown History magnesium oxide 400 mg PO BID #60 tab 12/03/19 12/09/19 Unknown Rx omeprazole 20 mg PO DAILY 12/03/19 12/09/19 12/03/19 History sucralfate 1 gram tablet 1 gm PO BID #60 tab 12/03/19 12/09/19 Unknown Rx tiotropium bromide 18 mcg capsule 1 cap INHALATION DAILY #30 inh 12/03/19 12/09/19 Unknown Rx with inhalation device tizanidine 2 mg tablet 2 mg PO BID #60 tab 12/03/19 12/09/19 Unknown Rx aspirin [Adult Aspirin Regimen] 81 mg PO DAILY #30 tab 12/04/19 12/09/19 Unknown Rx lisinopril 5 mg tablet 5 mg PO DAILY #30 tab 12/09/19 12/09/19 Unknown Rx cephalexin 500 mg PO TID 7 Days #21 tab 12/26/19 Unknown Rx naproxen 500 mg PO BID #20 tab 12/26/19 Unknown Rx Allergies Allergy/AdvReac Type Severity Reaction Status Date / Time fluoxetine [From Prozac] Allergy rash Verified 12/23/19 16:12 haloperidol [From Haldol] Allergy rash Verified 12/23/19 16:12 Opioids - Morphine Analogues Allergy rash Verified 12/23/19 16:12 oxcarbazepine Allergy rash Verified 12/23/19 16:12 [From Trileptal] prednisone Allergy rash Verified 12/23/19 16:12 PFSH Acute PFSH: Medical History Cannabis dependence, uncomplicated Cervical disc disorder with myelopathy of mid-cervical region Cervical post-laminectomy syndrome COPD (chronic obstructive pulmonary disease) Diabetes mellitus GERD with esophagitis History of methamphetamine abuse Major depressive disorder, recurrent severe without psychotic features Schizoaffective disorder, depressive type Smoker Surgical History History of angiography Brain June 2019 History of brain surgery June 21, 2019 endovascular treatment of dural AV fistula History of cervical spinal arthrodesis C4-C6 ACDFF; [place], [place]; 11/01/2015 History of hysterectomy Family History Mother Cancer Heart disease Social History Smoking and tobacco status: current every day smoker Second hand smoke exposure: Yes Smoking risk assessment/counseling performed?: Yes Alcohol intake: never Desire information about alcohol rehabilitation?: No Counseling given: No Desire information about substance/drug rehabilitation?: No Counseling given: No Adopted: No Caregiver/support person: No Lives independently: Yes Household members: spouse Marital status: Number of children: 0 service: No Current occupational status: unemployed Current occupational exposures/hazards: No Pets and animals: Yes History of recent travel: No Current gender identity: Female Vitals/I&O/Wt Last Vital Signs Pulse 98 12/30/19 20:30 Resp 20 H 12/30/19 20:30 BP 101/84 12/30/19 20:30 Pulse Ox 98 12/30/19 20:30 Weight last 48 hrs Weight 69.853 kg Physical Exam Narrative: EXAM NARRATIVE: Middle-age female currently in distress because of abdominal pain Saturating well on room air No active respiratory distress She has tardive dyskinesia withchoreoform movement of her extremities S1, S2 no tachycardia heart failure Clinically looks dehydrated Neurologically no focal deficit Abdomen tender to my palpation with rigidity, bowel sounds sluggish Lower extremity no edema gangrene or ulcer A&P Assessment and plan (1) Acute appendicitis: Status: Acute Qualifiers: Acute appendicitis type: unspecified acute appendicitis type Qualified Code(s): K35.80 - Unspecified acute appendicitis (2) Low back pain: Status: Acute Qualifiers: Back pain laterality: right Chronicity: acute Sciatica presence: without sciatica Qualified Code(s): M54.5 - Low back pain (3) UTI (urinary tract infection): Status: Acute Qualifiers: Hematuria presence: without hematuria Urinary tract infection type: acute cystitis Qualified Code(s): N30.00 - Acute cystitis without hematuria (4) Dystonic movements: Status: Acute (5) Fibromyalgia muscle pain: Status: Chronic (6) Schizoaffective disorder, depressive type: Status: Acute (7) COPD (chronic obstructive pulmonary disease): Status: Chronic Qualifiers: COPD type: emphysema Emphysema type: unspecified Qualified Code(s): J43.9 - Emphysema, unspecified Additional A&P Information Acute appendicitis Zosyn, n.p.o., normal saline maintenance rate Dilaudid for analgesia Non-oxygen dependent COPD: No acute exacerbation, will get blood gas before taking her to the OR She is an active smoker and uses marijuana as well, no history of intubation in the past or complications related to anesthesia, Schizoaffective disorder Currently n.p.o. Will use IV Ativan if needed Perioperative evaluation Considering urgent nature of intervention for acute appendicitis would not recommend any cardiac work-up Full code DVT prophylaxis: SCD npo Consult Attestations Medical Necessity Statement: More than 2 midnights in the hospital, as per general surgery Time Spent in Patient Care: (>than 50% of time spent in counselling and/or direct pt care on unit) . 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
[2019-12-30] MEDS: piperacillin-tazobactam 3.375 GM in sodium chloride 0.9% (plus) 50 ML IV (22:46)
[2019-12-30 23:28] VITALS: BP 114/70; PULSE 108; RESP 22; TEMP 37.3; O2SAT 95
[2019-12-30 23:45] VITALS: BP 101/63; PULSE 102; RESP 16; O2SAT 98
[2019-12-31] VITALS (25 sets, daily range): BP systolic 104–133; BP diastolic 53–80; PULSE 74–126; RESP 16–25; TEMP 36.7–37.3; O2SAT 91–100
[2019-12-31] MEDS: sodium chloride 0.9% 1,000 ML 100 ML IV ×2 (00:13→13:28)
[2019-12-31 02:29] LABS: Basophils # 0.1 10^3/uL (0.0-0.1); Basophils % 0.5 %; Eosinophils % 0.1 %; Hematocrit 41.4 % (37.0-47.0); Hemoglobin 13.2 g/dL (11.5-15.3); Lymphocytes # 2.3 10^3/uL (0.8-4.8); Lymphocytes % 8.5 %; Mean Corpuscular HGB Conc 31.9 g/dL (30.0-36.0); Mean Corpuscular Hemoglobin 29.9 pg (28.0-34.0); Mean Corpuscular Volume 93.9 fL (81-99); Mean Platelet Volume 11.3 fL (7.4-10.4); Monocytes # 1.7 10^3/uL (0.2-0.9); Monocytes % 6.4 %; Neutrophils # 22.58 10^3/uL (1.8-7.7); Neutrophils % 83.5 %; Nucleated Red Blood Cells % 0 %; Platelet Count 306 10^3/cmm (130-400); Red Blood Count 4.41 10^6/uL (4.1-5.3); Red Cell Distribution Width 13.2 % (12.1-15.1)
[2019-12-31 03:15] LABS: Anion Gap 15.8 (5-19); Blood Urea Nitrogen 24 mg/dL (6-20); Calcium 9.3 mg/dL (8.5-10.5); Carbon Dioxide 19 mmol/L (22-29); Chloride 106 mmol/L (98-107); Glomerular Filtration Rate 51.8 mL/min (90-130); Glucose 118 mg/dL (65-115); Osmolality Calculated 289 mOsm/kg (285-295); Potassium 3.8 mmol/L (3.5-5.1); Sodium 137 mmol/L (136-145)
[2019-12-31 03:43] LABS: ABG PCO2 27.8 mmHg (35-45); ABG PH Result 7.43 (7.35-7.45); Arterial Blood Gas Hematocrit 41.5 % (37-47); Base Excess ABG -4.3 mmol/L (-2.0-2.0); Blood Gas Operator Identificat HARKR; Blood Gas Sample Site Brachial, left; Blood Gas Sample Type Arterial; HCO3 ABG 18.6 mmol/L (22-26); Oxygen Device ROOM AIR; PO2 ABG 70.5 mmHg (80.0-100.0)
[2019-12-31] MEDS: HYDROmorphone 1 mg/mL INJ 1 mL 2 MG IVP ×3 (04:45→13:25)
[2019-12-31] MEDS: ondansetron 2 mg/ML SDV 2 mL 4 MG IVP (04:45)
--- NOTE | 2019-12-31 05:22 | PC.NURSE ---
O2 Pt. placed on 2L O2 per NC for decreased oxygen saturation of 85% on room air following Dilaudid administration. Pt. sats improved to 95% on 2L/NC.
--- NOTE | 2019-12-31 05:47 | P.HP_ITS ---
Providers/Chief Complaint Admitting Physician: Piero Norris MD Primary Care Provider: Lucila Thomas, JESSIE-Héctor Chief Complaint: ABDOMINAL PAIN History of Present Illness Chief Complaint: I am hurting History of present illness: Ms. Brenna Francisco is a 54 year old female with associa alexander multiple medical comorbidities including history of cerebrovascular accident, COPD, schizophrenia, depression, patient presents with abdominal pain that was most in the right lower quadrant and has been experiencing back pain as well which actually that was brought her to the emergency department and further work-up showed leukocytosis with an underlying UTI since last Friday and she has been getting treatment for that. But on the CT scan was found to have acute appendicitis that mildly inflamed. Unfortunately patient continues to smoke The pain mostly in the right lower quadrant worse with moving around and gets better when laying down and does not seem to be referred. No associated other symptoms General surgery was consulted for further evaluation potential intervention Review of Systems General: Reports: 10 or more systems reviewed and unremarkable except in HPI and below Medications/Allergies Home Medications Medication Instructions Recorded Confirmed Last Taken Type aripiprazole 20 mg tablet 20 mg PO DAILY #30 tab 10/26/19 12/31/19 12/30/19 Rx zonisamide 50 mg capsule 50 mg PO BID #60 cap 10/28/19 12/31/19 12/30/19 Rx acetaminophen [Tylenol] 325 - 650 mg PO Q4H PRN 11/29/19 12/31/19 12/02/19 History 2 tabs erythromycin 5 mg/gram (0.5 %) eye 1 applic OPHTHALMIC (EYE) Q12H #1 12/02/19 12/31/19 Unknown Rx ointment (3.5 gram tube) gm Cbd Oil See Rx Instructions .ROUTE .COMPLEX 12/03/19 12/31/19 Unknown History albuterol sulfate [ProAir HFA] 2 puff INHALATION Q6H PRN 12/03/19 12/31/19 Unknown History benztropine 1 mg PO BEDTIME 12/03/19 12/31/19 12/30/19 History budesonide-formoterol HFA 160 2 puff INHALATION Q12H #10.2 gm 12/03/19 12/31/19 12/30/19 Rx mcg-4.5 mcg/actuation aerosol inhaler dulaglutide 0.75 mg/0.5 mL 0.75 mg SUBCUT Q7D #2 ml 12/03/19 12/31/19 12/30/19 Rx subcutaneous pen injector fenofibrate nanocrystallized 145 mg PO DAILY 12/03/19 12/31/19 12/30/19 History magnesium oxide 400 mg PO BID #60 tab 12/03/19 12/31/19 12/30/19 Rx mirtazapine [Remeron] 15 mg PO BEDTIME 12/03/19 12/31/19 12/02/19 History multivitamin [Multiple Vitamins] 1 tab PO DAILY 12/03/19 12/31/19 12/30/19 History omeprazole 20 mg PO DAILY 12/03/19 12/31/19 12/30/19 History sucralfate 1 gram tablet 1 gm PO BID #60 tab 12/03/19 12/31/19 12/30/19 Rx tiotropium bromide 18 mcg capsule 1 cap INHALATION DAILY #30 inh 12/03/19 12/31/19 12/30/19 Rx with inhalation device tizanidine 2 mg tablet 2 mg PO BID #60 tab 12/03/19 12/31/19 12/30/19 Rx aspirin [Adult Aspirin Regimen] 81 mg PO DAILY #30 tab 12/04/19 12/31/19 12/30/19 Rx lisinopril 5 mg tablet 5 mg PO DAILY #30 tab 12/09/19 12/31/19 12/30/19 Rx cephalexin 500 mg PO TID 7 Days #21 tab 12/26/19 12/31/19 12/30/19 Rx naproxen 500 mg PO BID #20 tab 12/26/19 12/31/19 Unknown Rx Allergies Allergy/AdvReac Type Severity Reaction Status Date / Time fluoxetine [From Prozac] Allergy rash Verified 12/31/19 06:21 haloperidol [From Haldol] Allergy rash Verified 12/31/19 06:21 Opioids - Morphine Analogues Allergy rash Verified 12/31/19 06:21 oxcarbazepine Allergy rash Verified 12/31/19 06:21 [From Trileptal] prednisone Allergy rash Verified 12/31/19 06:21 PFSH Acute PFSH: Medical History Cannabis dependence, uncomplicated Cervical disc disorder with myelopathy of mid-cervical region Cervical post-laminectomy syndrome COPD (chronic obstructive pulmonary disease) Diabetes mellitus GERD with esophagitis History of methamphetamine abuse Major depressive disorder, recurrent severe without psychotic features Schizoaffective disorder, depressive type Smoker Surgical History History of angiography Brain June 2019 History of brain surgery June 21, 2019 endovascular treatment of dural AV fistula History of cervical spinal arthrodesis C4-C6 ACDFF; [place], [place]; 11/01/2015 History of hysterectomy Family History Mother Cancer Heart disease Social History Smoking and tobacco status: current every day smoker Second hand smoke exposure: Yes Smoking risk assessment/counseling performed?: Yes Alcohol intake: never Desire information about alcohol rehabilitation?: No Counseling given: No Desire information about substance/drug rehabilitation?: No Counseling given: No Adopted: No Caregiver/support person: No Lives independently: Yes Household members: spouse Marital status: Number of children: 0 service: No Current occupational status: unemployed Current occupational exposures/hazards: No Pets and animals: Yes History of recent travel: No Current gender identity: Female Vitals/I&O/Wt Last Vital Signs Temp 98.5 F 12/31/19 03:28 Pulse 115 H 12/31/19 05:23 Resp 16 12/31/19 05:23 BP 122/67 12/31/19 03:28 Pulse Ox 95 12/31/19 05:23 12/30/19 12/30/19 12/31/19 14:59 22:59 06:59 Output Total 350 / 350 Balance -350 / -350 Weight last 48 hrs Weight 154 lb Physical Exam Narrative: EXAM NARRATIVE: Patient is conscious alert oriented X3 BMI 27 Head and neck examination PERRLA no masses no cervical lymphadenopathy no jaundice Cardiac examination audible S1-S2 no murmurs no gallops no arrhythmias Chest fair air Abdomen tenderness and localized guarding in the right lower quadrant and positive Rovsing's sign. Maximal tenderness appreciated at McBurney's point and associated suprapubic tenderness likely to the underlying UTI. Otherwise nondistended soft no organomegaly. Overweight Extremities no cyanosis no clubbing no edema Data : 12/31/19 02:00 12/31/19 02:00 A&P Assessment and plan (1) Acute appendicitis: After history taking physical examination and reviewing the chart and images with my personal interpretation will plan to perform laparoscopic appendectomy possible open. Indications, risks, benefits and alternatives all discussed with the patient and she did agree to proceed with surgery. Patient understands the potential underlying risk because of her ongoing UTI will coordinate with hospitalist service for further management with that regard. Assurance and education All questions have been answered and all concerns have been addressed to patie nt's satisfaction. Informed consent per chart Status: Acute Qualifiers: Acute appendicitis type: unspecified acute appendicitis type Qualified Code(s): K35.80 - Unspecified acute appendicitis Attestations Medical Necessity Statement*: Observation status patient will require surgical intervention the form of laparoscopic appendectomy Time Spent in Patient Care: (>than 50% of time spent in counselling and/or direct pt care on unit) . Coding Level of Care Code Acute Legal Nurse Consultant for g Fwd Diagnoses Acute appendicitis K35.80 Acute appendicitis type: unspecified acute appendicitis type
[2019-12-31] MEDS: piperacillin-tazobactam 3.375 GM in sodium chloride 0.9% (plus) 50 ML IV ×3 (06:16→23:41)
[2019-12-31 06:42] LABS: Glucose Point of Care 120 mg/dL (70-110)
--- NOTE | 2019-12-31 10:13 | PC.NURSE ---
Pt taken to Pre-Op just now via stretcher. Signed consent form in chart and sent with her. CHG bath given and gown was changed. No s/s distress upon transfer, and no complaints from pt besides abdominal pain (Dilaudid given recently-see JUN). Pt tried to urinate in bedside commode prior to transferring to stretcher, but was unable to. Pre-op nurse aware.
--- NOTE | 2019-12-31 10:15 | PC.NURSE ---
Patient reports feeling the urge to void, but is unable to do so. She states she has not voided since surgery. Bladder scan shoes 430mL of urine retained. Notified Dr. Barney by phone, verbal order received to place indwelling urinary catheter r/t acute urinary retention. Catheter clamped after 1200ml was drained into bag. After approximately 20 minutes, unclamped catheter and 200mL drained into catheter bag. Patient reports relief of bladder discomfort. Will monitor.
--- NOTE | 2019-12-31 10:22 | P.ANESASSM_ITS ---
Pre-Anesthetic Assessment Pre-Anesthetic Assessment: Height/Weight: Height 1.6 m Weight 69.853 kg Temp Pulse Resp BP Pulse Ox 98.5 F 103 H 18 130/59 95 12/31/19 10:20 12/31/19 10:20 12/31/19 10:20 12/31/19 10:20 12/31/19 10:20 Preop Diagnosis: appendicitis Proposed Procedure: Operation Date: 12/31/19 11:00 Proposed Procedures p Laparoscopic Appendectomy(Not Applicable) - Piero Norris MD Familial anesthetic complications: none Was Beta Ayad taken within 24 hours: N/A Last intake: Intake Last Liquid Date 12/30/19 Last Liquid Time 23:00 Last Solid Date 12/30/19 Last Solid Time 11:00 Social: Social History: Tobacco and No alcohol Exam: Pre-Anes Outpt Exam: alert, oriented x 3, clear to auscultation bilaterally and regular rate & rhythm Airway: Cervical ROM: WNL MP: 4 Dentition: Other (no teeth) Pulmonary: Pulmonary: COPD CV/HEM: CV/HEM: HTN GI: GI: GERD Metabolic: Metabolic: DM and Hyperlipidemia Musc/skel: Musc/skel: Fibromyalgia Neuropsych: Neuropsych: Anxiety, Bipolar, CVA and Depression Anesthetic Plan: ASA status: 3 Anesthesia: General Risk of > 500 ml blood loss (7ml/kg in children): No Meds/Allergies Current Medications: Current Medications Generic Name Dose Route Start Last Admin Trade Name Freq PRN Reason Stop Dose Admin Hydromorphone HCl 2 mg 12/30/19 23:47 12/31/19 08:56 Dilaudid Inj IVP 2 mg Q4H PRN Administration pain Sodium Chloride 1,000 mls @ 100 m ls/hr 12/30/19 23:47 12/31/19 00:13 Sodium Chloride 0.9% IV 100 mls/hr .Q10H RAJ Administration Piperacillin Sod/T azobactam 50 mls @ 12.5 mls /hr 12/31/19 07:00 12/31/19 06:16 Sod 3.375 gm/ So dium Chloride IV 12.5 mls/hr Q8H RAJ Administration Protocol As Directed Insulin Aspart 0 unit 12/31/19 08:00 12/31/19 07:19 Novolog SUBCUT Not Given WM&BEDTIME RAJ Protocol Ondansetron HCl 4 mg 12/30/19 23:47 12/31/19 04:45 Zofran IVP 4 mg Q6H PRN Administration NAUSEA AND VOMITI NG PFSH Anesthesia PFSH: Medical History Cannabis dependence, uncomplicated Cervical disc disorder with myelopathy of mid-cervical region Cervical post-laminectomy syndrome COPD (chronic obstructive pulmonary disease) Diabetes mellitus GERD with esophagitis History of methamphetamine abuse Major depressive disorder, recurrent severe without psychotic features Schizoaffective disorder, depressive type Smoker Surgical History History of angiography Brain June 2019 History of brain surgery June 21, 2019 endovascular treatment of dural AV fistula History of cervical spinal arthrodesis C4-C6 ACDFF; [place], [place]; 11/01/2015 History of hysterectomy Family History Mother Cancer Heart disease Social History Smoking and tobacco status: current every day smoker Second hand smoke exposure: Yes Smoking risk assessment/counseling performed?: Yes Alcohol intake: never Desire information about alcohol rehabilitation?: No Counseling given: No Desire information about substance/drug rehabilitation?: No Counseling given: No Adopted: No Caregiver/support person: No Lives independently: Yes Household members: spouse Marital status: Number of children: 0 service: No Current occupational status: unemployed Current occupational exposures/hazards: No Pets and animals: Yes History of recent travel: No Current gender identity: Female Data Anesthesia CBC & Chem 7: 12/31/19 02:00 12/31/19 02:00 Other Labs: Laboratory Results - last 48 hr 12/30/19 12/30/19 12/31/19 20:19 20:19 02:00 WBC 28.0 H 27.0 H RBC 4.70 4.41 Hgb 14.2 13.2 Hct 42.7 41.4 MCV 90.9 93.9 MCH 30.2 29.9 MCHC 33.3 31.9 RDW 12.9 13.2 Plt Count 338 306 MPV 11.5 H 11.3 H Neut % (Auto) 88.1 83.5 Lymph % (Auto) 4.6 8.5 Forrest % (Auto) 5.9 6.4 Eos % (Auto) 0.1 0.1 Baso % (Auto) 0.5 0.5 Neut # (Auto) 24.63 H 22.58 H Lymph # (Auto) 1.3 2.3 Forrest # (Auto) 1.6 H 1.7 H Eos # (Auto) 0.0 0.0 Baso # (Auto) 0.2 H 0.1 Nucleated RBC % (auto) 0 0 Nucleated RBCs # 0.0 0.0 Specimen Type Sample Site ABG pH ABG pCO2 ABG pO2 ABG HCO3 ABG Base Excess Jonny Test Hematocrit O2 Delivery Device FiO2 Nurse Practitioner Physicians Assistant ID Sodium 136 Potassium 3.7 Chloride 105 Carbon Dioxide 16 L Anion Gap 18.7 BUN 23 H Creatinine 1.1 H GFR Calculation 51.8 L Glucose 136 H POC Glucose Calculated Osmolality 288 Calcium 10.6 H Total Bilirubin 0.3 AST 19 ALT 17 Alkaline Phosphatase 59 Total Protein 7.7 Albumin 4.6 Globulin 3.1 Lipase 46 12/31/19 12/31/19 12/31/19 02:00 03:33 06:37 WBC RBC Hgb Hct MCV MCH MCHC RDW Plt Count MPV Neut % (Auto) Lymph % (Auto) Forrest % (Auto) Eos % (Auto) Baso % (Auto) Neut # (Auto) Lymph # (Auto) Forrest # (Auto) Eos # (Auto) Baso # (Auto) Nucleated RBC % (auto) Nucleated RBCs # Specimen Type Arterial Sample Site Brachial, left ABG pH 7.43 ABG pCO2 27.8 L ABG pO2 70.5 L ABG HCO3 18.6 L ABG Base Excess -4.3 L Jonny Test N/a Hematocrit 41.5 O2 Delivery Device Room air FiO2 21.0 Nurse Practitioner Physicians Assistant ID Harkr Sodium 137 Potassium 3.8 Chloride 106 Carbon Dioxide 19 L Anion Gap 15.8 BUN 24 H Creatinine 1.1 H GFR Calculation 51.8 L Glucose 118 H POC Glucose 120 Calculated Osmolality 289 Calcium 9.3 Total Bilirubin AST ALT Alkaline Phosphatase Total Protein Albumin Globulin Lipase Cardiac Studies: No Data to Display
[2019-12-31] MEDS: sodium chloride 0.9% 1,000 ML 30 ML IV (11:05)
[2019-12-31] MEDS: lidocaine 2% INJ 20 mL INJECTION (12:00)
--- NOTE | 2019-12-31 12:05 | P.OP_ITS ---
Operative Report Date of procedure: December 31, 2019 Pre-op Diagnosis: appendicitis Post-op diagnosis: same (Acute retrocecal appendicitis with suppuration) Procedure Done: Laparoscopic appendectomy Specimens removed/disposition: Appendix Surgeon: Piero Norris Machine Puller And Laster: Surgical sid Unger Circulating nurse Daly Anesthesia: General (Sara Nieto) Estimated blood loss (mL): 10 Condition: stable Disposition: floor Brief History: This is a pleasant 54 years old female patient presented with worsening abdominal pain was found to have an acute appendicitis.After thorough history physical examination and reviewing the chart and images with my personal interpretion, I counseled the patient for laparoscopic appendectomy possible open. Indications, risks, benefits and alternatives were all discussed with the patient and did agree to proceed. Rationale was carefully and clearly discussed with the patient.Appropriate informed consent have been reviewed and signed Procedure: Patient after being identified in the holding area and asked to void urine, and informed consent per chart ,patient was then taken back to the OR placed in supine position got intubated by anesthesia left arm was tucked tucked ,Timeout was done verifying the patient's name/date of /planned procedure and destination after the procedure, all were in agreement. In and out catheter was done on the OR table revealed clear urine about 300 mL, preoperative antibiotics administered per protocol. prep and drape of the abdomen was done under the usual sterile technique. Started by longitudinal skin incision supraumbilical using a Baxter trocar technique safe entry to the abdominal cavity was achieved verified by using 10 mm zero degree laparoscopy, switched to a 30? scope under direct visualization a suprapubic 5 mm trocar was inserted followed by another 5 mm trocar inserted in the left lower quadrant, I was able to position the patient in an T [place] and left side down, dissection of the prececal acutely inflamed appendix with flakes of fibrinous exudates, there were some adhesions towards the lateral pelvic wall that was taken down by sharp and blunt dissection, attention was deviated to the healthy base of the appendix where I had to switch the camera to 5 mm 30? scope got introduced through the left lower quadrant and through the Baxter trocar under direct visualization a GI stapler 45 mm blue load was applied at the healthy part of the base of the appendix, and an Endoloop PDS was applied onto the mesoappendix for control , the appendix was then retrieved in an Endo Catch bag, final survey was done of the abdomen and pelvis , irrigation with warm saline, and suction was obtained, were mercury fluid like in the pelvis due to reaction from the inflamed appendix. 5 mm clips were applied onto the mesoappendix as well as the appendectomy staple line and a right lateral pelvic wall for minimal oozing. Final look laparoscopy was done showing no other abnormalities or injuries, all trocars were taken out under direct visualization after the supraumblical trocar site was closed by #1 PDS sutures under direct vision using fascial closure device ,followed by skin closure using 4-0 Monocryl of all trocar site incisions. infiltration of local lidocaine 2% was done to all incision sites.Dry dressing was applied. Count was completed at the end of the procedure for [place] , sponges and instruments Patient tolerated the procedure well and was transferred to the recovery area after extubation. I was present for the whole entire procedure
--- NOTE | 2019-12-31 12:40 | PM.PACU ---
PACU note Post-Anesthesia Exam: awake and vital signs stable Disposition: back to floor
--- NOTE | 2019-12-31 12:42 | PC.NURSE ---
Handoff report given to charge nurse, Cary. All questions answered.
--- NOTE | 2019-12-31 16:30 | PM.PN ---
Subjective Subjective: Interval history: Admitted overnight for appendicitis. Taken to the OR today with Dr. Norris. Patient is hemodynamically stable and afebrile. Seen today postop. Complaining of pain. tolerating CLD Vitals/I&O/Wt Last Vital Signs Temp 98.7 F 12/31/19 15:40 Pulse 95 12/31/19 15:40 Resp 20 H 12/31/19 15:40 BP 104/53 12/31/19 15:40 Pulse Ox 94 12/31/19 15:40 12/31/19 12/31/19 12/31/19 06:59 14:59 22:59 Intake Total 550 / 550 Output Total 350 / 350 410 / 410 Balance -350 / -350 140 / 140 Weight last 48 hrs Weight 69.853 kg Physical Exam Narrative: EXAM NARRATIVE: Middle-age female currently in distress because of abdominal pain Saturating well on room air No active respiratory distress She has tardive dyskinesia withchoreoform movement of her extremities S1, S2 no tachycardia heart failure Clinically looks dehydrated Neurologically no focal deficit Abdomen tender to my palpation with rigidity, bowel sounds sluggish Lower extremity no edema gangrene or ulcer Urinary Catheter Management^: Straight: Cath Placed During This Visit: no Data : 12/31/19 02:00 12/31/19 02:00 A&P Assessment and plan (1) Acute appendicitis: Status: Acute Qualifiers: Acute appendicitis type: unspecified acute appendicitis type Qualified Code(s): K35.80 - Unspecified acute appendicitis (2) Low back pain: Status: Acute Qualifiers: Back pain laterality: right Chronicity: acute Sciatica presence: without sciatica Qualified Code(s): M54.5 - Low back pain (3) UTI (urinary tract infection): Status: Acute Qualifiers: Hematuria presence: without hematuria Urinary tract infection type: acute cystitis Qualified Code(s): N30.00 - Acute cystitis without hematuria (4) Dystonic movements: Status: Acute (5) Fibromyalgia muscle pain: Status: Chronic (6) Schizoaffective disorder, depressive type: Status: Acute (7) COPD (chronic obstructive pulmonary disease): Status: Chronic Qualifiers: COPD type: emphysema Emphysema type: unspecified Qualified Code(s): J43.9 - Emphysema, unspecified Additional A&P Information Acute appendicitis: Patient taken the OR with Dr. Marquis early in the day today. Check MRSA swab, blood cultures, procalcitonin, urinalysis, urine culture Pain control as per Dr. Norris, diet as per Dr. Norris. We will try to avoid oversedation. Add vancomycin to Zosyn for now. Will de-escalate if MRSA swab negative. Non-oxygen dependent COPD: She is an active smoker and uses marijuana as well, no history of intubation in the past or complications related to anesthesia. DuoNebs every 6 hour, budesonide twice daily. Oxygen supplementation keeping saturation over 90%. Type 2 diabetes mellitus: We will change Accu-Cheks to every 6 hours as patient is n.p.o. Insulin sliding scale at low-dose for now. Schizoaffective disorder Currently n.p.o. Will use IV Ativan if needed. At home patient takes Ambifly, benztropine, Remeron, zonisamide. We will start once patient can tolerate p.o. Full code DVT prophylaxis: SCD Protonix for PUD prophylaxis Attestations Medical Necessity Statement*: as per primary team Coding Level of Care Code Acute Supervisor Garage for g Fwd Diagnoses Acute appendicitis K35.80 Acute appendicitis type: unspecified acute appendicitis type Low back pain M54.5 Back pain laterality: right Chronicity: acute Sciatica presence: without sciatica UTI (urinary tract infection) N30.00 Hematuria presence: without hematuria Urinary tract infection type: acute cystitis Dystonic movements G24.9 Fibromyalgia muscle pain M79.7 Schizoaffective disorder, depressive type F25.1 COPD (chronic obstructive pulmonary disease) J43.9 COPD type: emphysema Emphysema type: unspecified
[2019-12-31] MEDS: TRAMadol 50 mg Tablet PO (16:45)
[2019-12-31] MEDS: vancomycin 1,000 MG in sodium chloride 0.9% 250 ML 250 MG IV (16:45)
[2019-12-31 16:50] LABS: Glucose Point of Care 120 mg/dL (70-110)
[2019-12-31 17:22] LABS: Procalcitonin 9.24 ng/mL (0-0.5); Thyroid Stimulating Hormone 2.19 uIU/mL (0.27-4.20)
[2019-12-31 17:33] LABS: Iron 16 ug/dL (37-145); Percent Saturation 4.5 % (20-50); Total Iron Binding Capacity 351 mcg/dl; Unsaturated Iron Binding 335 ug/dL (112-347)
[2019-12-31] MEDS: mirtazapine 15 mg Tablet PO (20:26)
[2019-12-31] MEDS: benztropine 1 mg Tablet PO (20:27)
[2019-12-31] MEDS: HYDROmorphone 1 mg/mL INJ 1 mL IVP (20:27)
[2019-12-31 20:53] LABS: Glucose Point of Care 123 mg/dL (70-110)
[2019-12-31] MEDS: ipratropium-albuterol 3 mL Neb INHALATION (21:01)
[2019-12-31] MEDS: budesonide 0.5 mg/2 mL Neb INHALATION (21:01)
[2020-01-01] VITALS (8 sets, daily range): BP systolic 123–149; BP diastolic 62–69; PULSE 90–97; RESP 18–22; TEMP 36.8–37.6; O2SAT 94–98
[2020-01-01] MEDS: ondansetron 2 mg/ML SDV 2 mL 4 MG IVP ×2 (00:18→09:30)
[2020-01-01 01:28] LABS: Bilirubin Urine Neg (Negative); Blood Urine 2+ (Negative); Glucose Urine UA Norm (Normal); Ketones Urine Negative (Negative); Leukocyte Esterase Urine Negative (Negative); Nitrate Urine Negative (Negative); Protein Urine Neg (Negative); Urine Appearance Clear (CLEAR); Urine Color Yellow (Yellow); Urobilinogen Urine Norm (Negative); pH Urine 6 (5-7)
[2020-01-01 01:30] LABS: Add Urine Culture? No; Bacteria Urine TRACE /hpf; Mucus Urine TRACE /hpf; Squamous Epithelial Cell Urine 0-4 /hpf (0-5); WBC Urine 0-4 /hpf (0-5)
[2020-01-01 01:40] LABS: Glucose Point of Care 126 mg/dL (70-110)
[2020-01-01] MEDS: sodium chloride 0.9% 1,000 ML 100 ML IV (02:15)
[2020-01-01] MEDS: HYDROmorphone 1 mg/mL INJ 1 mL IVP (05:47)
--- NOTE | 2020-01-01 06:23 | P.PN_ITS ---
Subjective Subjective: Interval history: Patient overall feels better and passing gas yet she does complain of some pain around her incision sites. Epstein catheter was inserted yesterday as patient was not able to void urine on her own per hospitalist service. Otherwise tolerating well p.o. intake. Vitals/I&O/Wt Last Vital Signs Temp 99.5 F 01/01/20 04:28 Pulse 97 01/01/20 04:28 Resp 22 H 01/01/20 05:47 BP 125/63 01/01/20 04:28 Pulse Ox 94 01/01/20 04:28 12/31/19 12/31/19 01/01/20 14:59 22:59 06:59 Intake Total 550 / 550 410 / 960 1440 / 2400 Output Total 410 / 410 640 / 1050 Balance 140 / 140 410 / 550 800 / 1350 Weight last 48 hrs Weight 154 lb Physical Exam Narrative: EXAM NARRATIVE: Patient is conscious alert oriented X3 BMI 27 Head and neck examination PERRLA no masses no cervical lymphadenopathy no jaundice Cardiac examination audible S1-S2 no murmurs no gallops no arrhythmias Chest is clear bilateral,abscence of Rhonchi or wheezes,no surgical emphysema Abdomen nontender except at the incision site nondistended soft no organomegaly guarding or rigidity/no signs of peritonitis Epstein catheter in place clear urine Urinary Catheter Management^: Straight: Cath Placed During This Visit: no Epstein: Cath Placed During This Visit: yes Urinary Catheter Date of Insertion: 01/01/20 Urinary Catheter Time of Insertion: 00:05 Data : 12/31/19 02:00 12/31/19 02:00 A&P Assessment and plan (1) Acute appendicitis: Will advance to soft GI diet Once patient tolerates diet can be discharged from surgical standpoint of view I will coordinate with Dr. Dickerson with regard to patient's discharge and will follow on CBC as it was not back on morning rounds. Likely the patient will benefit from antimicrobial therapy for her UTI upon discharge Will follow on physical therapy recommendations Drop normal saline to 50 mL/h Resume home medications per hospitalist service Assurance and education All questions have been answered and all concerns have been addressed to patient's satisfaction. Status: Resolved Qualifiers: Acute appendicitis type: unspecified acute appendicitis type Qualified Code(s): K35.80 - Unspecified acute appendicitis Attestations Medical Necessity Statement*: Patient will require observation status and potential plan to discharge home today Time Spent in Patient Care: (>than 50% of time spent in counselling and/or direct pt care on unit) . Coding Level of Care Code Acute Allergist/Immunologist Physician for g Fwd Diagnoses Acute appendicitis K35.80 Acute appendicitis type: unspecified acute appendicitis type
[2020-01-01 06:32] LABS: Basophils # 0.1 10^3/uL (0.0-0.1); Basophils % 0.8 %; Eosinophils # 0.1 10^3/uL (0.0-0.8); Eosinophils % 1.5 %; Hematocrit 37.6 % (37.0-47.0); Hemoglobin 11.8 g/dL (11.5-15.3); Lymphocytes # 1.6 10^3/uL (0.8-4.8); Lymphocytes % 17.5 %; Mean Corpuscular HGB Conc 31.4 g/dL (30.0-36.0); Mean Corpuscular Volume 95.7 fL (81-99); Mean Platelet Volume 11.2 fL (7.4-10.4); Monocytes # 0.5 10^3/uL (0.2-0.9); Monocytes % 5.2 %; Neutrophils # 6.85 10^3/uL (1.8-7.7); Neutrophils % 74.6 %; Nucleated Red Blood Cells % 0 %; Platelet Count 215 10^3/cmm (130-400); Red Blood Count 3.93 10^6/uL (4.1-5.3); Red Cell Distribution Width 13.6 % (12.1-15.1); White Blood Count 9.2 10^3/uL (4.0-10.0)
[2020-01-01 06:41] LABS: Glucose Point of Care 111 mg/dL (70-110)
[2020-01-01] MEDS: piperacillin-tazobactam 3.375 GM in sodium chloride 0.9% (plus) 50 ML IV (06:42)
[2020-01-01 06:50] LABS: Estmated Average Glucose 120; Hemoglobin A1C 5.8 % (4.0-6.0)
[2020-01-01 07:47] LABS: Alanine Aminotransferase 12 U/L (0-33); Albumin Level 3.3 g/dL (3.5-5.2); Alkaline Phosphatase 45 IU/L (35-105); Anion Gap 13.6 (5-19); Aspartate Amino Transferase 22 U/L (0-32); Blood Urea Nitrogen 10 mg/dL (6-20); Calcium 8.2 mg/dL (8.5-10.5); Carbon Dioxide 17 mmol/L (22-29); Chloride 107 mmol/L (98-107); Globulin 2.8 g/dL (1.3-4.6); Glomerular Filtration Rate 65.2 mL/min (90-130); Glucose 112 mg/dL (65-115); Osmolality Calculated 278 mOsm/kg (285-295); Potassium 3.6 mmol/L (3.5-5.1); Sodium 134 mmol/L (136-145); Total Bilirubin 0.3 mg/dL (0.15-1.2); Total Protein 6.1 g/dL (6.6-8.7)
--- NOTE | 2020-01-01 08:19 | ANE.PACU2 ---
Inpatient post-anesthesia follow up: Airway intact: Yes Vital signs: Temperature 99.6 F Pulse Rate [Monito r] 93 Pulse Rate 95 Respiratory Rate 18 Blood Pressure 123/65 Pulse Oximetry 95 Oxygen Delivery Me thod Room Air Oxygen Flow Rate 8 Fraction of Inspir ed Oxygen Hydration adequate: Yes Nausea and vomiting: No Pain level: 7 Mental status: Baseline
[2020-01-01] MEDS: ARIPiprazole 10 mg Tablet 20 MG PO (08:42)
[2020-01-01] MEDS: TRAMadol 50 mg Tablet PO ×2 (08:43→17:11)
[2020-01-01] MEDS: pantoprazole 40 mg SDV IVP (08:43)
[2020-01-01] MEDS: budesonide 0.5 mg/2 mL Neb INHALATION (09:17)
[2020-01-01] MEDS: ipratropium-albuterol 3 mL Neb INHALATION (09:18)
--- NOTE | 2020-01-01 09:18 | PM.PN ---
Subjective Subjective: Interval history: On examination patient uncomfortable in bed. She is passing flatus. She had bowel movement as well. Denies of having any nausea, vomiting. Complaining of pain at the site of incision. Patient has remained hemodynamically stable and afebrile. Tolerating oral diet well. Vitals/I&O/Wt Last Vital Signs Temp 99.6 F 01/01/20 07:53 Pulse 95 01/01/20 07:53 Resp 18 01/01/20 07:53 BP 123/65 01/01/20 07:53 Pulse Ox 95 01/01/20 07:53 12/31/19 01/01/20 01/01/20 22:59 06:59 14:59 Intake Total 410 / 960 1490 / 2450 Output Total 840 / 1250 Balance 410 / 550 650 / 1200 Weight last 48 hrs Weight 69.853 kg Physical Exam Narrative: EXAM NARRATIVE: Middle-age female currently in distress because of abdominal pain Saturating well on room air No active respiratory distress She has tardive dyskinesia withchoreoform movement of her extremities S1, S2 no tachycardia heart failure Clinically looks dehydrated Neurologically no focal deficit Abdomen: Bowel sounds present, incision site surgically dressed, no drainage present Lower extremity no edema gangrene or ulcer Urinary Catheter Management^: Straight: Cath Placed During This Visit: no Epstein: Cath Placed During This Visit: yes Urinary Catheter Date of Insertion: 01/01/20 Urinary Catheter Time of Insertion: 00:05 Data : 01/01/20 06:05 01/01/20 05:52 Micro: Microbiology 01/01/20 06:05 Blood Culture - Preliminary Blood SPECIMEN COLLECTED 01/01/20 06:05 Blood Culture - Preliminary Blood SPECIMEN COLLECTED A&P Assessment and plan (1) Acute appendicitis: Status: Resolved Qualifiers: Acute appendicitis type: unspecified acute appendicitis type Qualified Code(s): K35.80 - Unspecified acute appendicitis (2) Low back pain: Status: Acute Qualifiers: Back pain laterality: right Chronicity: acute Sciatica presence: without sciatica Qualified Code(s): M54.5 - Low back pain (3) UTI (urinary tract infection): Status: Acute Qualifiers: Hematuria presence: without hematuria Urinary tract infection type: acute cystitis Qualified Code(s): N30.00 - Acute cystitis without hematuria (4) Dystonic movements: Status: Inactive (5) Fibromyalgia muscle pain: Status: Chronic (6) Schizoaffective disorder, depressive type: Status: Acute (7) COPD (chronic obstructive pulmonary disease): Status: Chronic Qualifiers: COPD type: emphysema Emphysema type: unspecified Qualified Code(s): J43.9 - Emphysema, unspecified Additional A&P Information Acute appendicitis: Patient taken the OR with Dr. Hernadez. Postop day 1. Patient tolerating oral diet. Advance to GI soft as per surgery. Leukocytosis has resolved and patient has remained afebrile. Most likely can de-escalate antibiotics to oral. Most likely can do ciprofloxacin 500 twice daily and Flagyl 500 3 times daily for next 7 days. Will discuss with Dr. Norris. DC Epstein catheter. Non-oxygen dependent COPD: She is an active smoker and uses marijuana as well, no history of intubation in the past or complications related to anesthesia. DuoNebs every 6 hour, budesonide twice daily. Oxygen supplementation keeping saturation over 90%. Type 2 diabetes mellitus: We will change Accu-Cheks to every 6 hours as patient is n.p.o. Insulin sliding scale at low-dose for now. Schizoaffective disorder Currently n.p.o. Will use IV Ativan if needed. At home patient takes Ambifly, benztropine, Remeron, zonisamide. We will start once patient can tolerate p.o. Full code DVT prophylaxis: SCD Protonix for PUD prophylaxis Thank you for giving us a chance of taking care of Ms. Francisco. Patient stable from medicine point of view. We will continue to follow. Attestations Medical Necessity Statement*: As per primary team. Time Spent in Patient Care: Greater than 35 minutes (>than 50% of time spent in counselling and/or direct pt care on unit). Coding Level of Care Code Acute Teaching Assistant for g Fwd Diagnoses Acute appendicitis K35.80 Acute appendicitis type: unspecified acute appendicitis type Low back pain M54.5 Back pain laterality: right Chronicity: acute Sciatica presence: without sciatica UTI (urinary tract infection) N30.00 Hematuria presence: without hematuria Urinary tract infection type: acute cystitis Dystonic movements G24.9 Fibromyalgia muscle pain M79.7 Schizoaffective disorder, depressive type F25.1 COPD (chronic obstructive pulmonary disease) J43.9 COPD type: emphysema Emphysema type: unspecified
--- NOTE | 2020-01-01 09:41 | P.SS_ITS ---
Short Stay Summary Providers Date of Admit/Discharge: 01/02/20 Attending Provider: Piero Norris MD Primary Care Provider: KANDIS Roman Chief Complaint: ABDOMINAL PAIN HPI History of Present Illness Ms. Brenna Francisco is a 54 year old female presented to the emergency department with back pain and was previously diagnosed with UTI. Patient was worked up further and was found to have acute appendicitis, general surgery was further consulted for potential intervention. Review of Systems General: Reports: 10 or more systems reviewed and unremarkable except in HPI and below Home Meds/Allergies Home Medications and Allergies Home Medications Medication Instructions Recorded Confirmed Type acetaminophen [Tylenol] 325 - 650 mg PO Q4H PRN 11/29/19 12/31/19 History Cbd Oil See Rx Instructions .ROUTE .COMPLEX 12/03/19 12/31/19 History albuterol sulfate [ProAir HFA] 2 puff INHALATION Q6H PRN 12/03/19 12/31/19 Hist ory benztropine 1 mg PO BEDTIME 12/03/19 12/31/19 History fenofibrate nanocrystallized 145 mg PO DAILY 12/03/19 12/31/19 History mirtazapine [Remeron] 15 mg PO BEDTIME 12/03/19 12/31/19 History multivitamin [Multiple Vitamins] 1 tab PO DAILY 12/03/19 12/31/19 History omeprazole 20 mg PO DAILY 12/03/19 12/31/19 History Allergies Allergy/AdvReac Type Severity Reaction Status Date / Time fluoxetine [From Prozac] Allergy rash Verified 12/31/19 06:21 haloperidol [From Haldol] Allergy rash Verified 12/31/19 06:21 Opioids - Morphine Analogues Allergy rash Verified 12/31/19 06:21 oxcarbazepine Allergy rash Verified 12/31/19 06:21 [From Trileptal] prednisone Allergy rash Verified 12/31/19 06:21 PFSH Acute PFSH: Medical History Cannabis dependence, uncomplicated Cervical disc disorder with myelopathy of mid-cervical region Cervical post-laminectomy syndrome COPD (chronic obstructive pulmonary disease) Diabetes mellitus GERD with esophagitis History of methamphetamine abuse Major depressive disorder, recurrent severe without psychotic features Schizoaffective disorder, depressive type Smoker Surgical History History of angiography Brain June 2019 History of brain surgery June 21, 2019 endovascular treatment of dural AV fistula History of cervical spinal arthrodesis C4-C6 ACDFF; [place], [place]; 11/01/2015 History of hysterectomy Family History Mother Cancer Heart disease Social History Smoking and tobacco status: current every day smoker Second hand smoke exposure: Yes Smoking risk assessment/counseling performed?: Yes Alcohol intake: never Desire information about alcohol rehabilitation?: No Counseling given: No Desire information about substance/drug rehabilitation?: No Counseling given: No Adopted: No Caregiver/support person: No Lives independently: Yes Household members: spouse Marital status: Number of children: 0 service: No Current occupational status: unemployed Current occupational exposures/hazards: No Pets and animals: Yes History of recent travel: No Current gender identity: Female Vitals/I&O/Wt Last Vital Signs Temp 99.6 F 01/01/20 07:53 Pulse 97 01/01/20 09:18 Resp 20 H 01/01/20 09:18 BP 123/65 01/01/20 07:53 Pulse Ox 98 01/01/20 09:18 12/31/19 01/01/20 01/01/20 22:59 06:59 14:59 Intake Total 410 / 960 1490 / 2450 460 / 460 Output Total 840 / 1250 Balance 410 / 550 650 / 1200 460 / 460 Weight last 48 hrs Weight 154 lb Physical Exam Narrative: EXAM NARRATIVE: Patient is conscious alert oriented X3 BMI 27 Head and neck examination PERRLA no masses no cervical lymphadenopathy no jaundice Abdomen nontender step mildly at the incision sites and towards the suprapubic region nondistended soft no organomegaly guarding or rigidity/no signs of peritonitis. Urinary Catheter Management^: Straight: Cath Placed During This Visit: no Epstein: Cath Placed During This Visit: yes Reason for Continuing Indwelling Catheter: Acute Urinary Retention or Obstruction Urinary Catheter Date of Insertion: 01/01/20 Urinary Catheter Time of Insertion: 00:05 Hospital Course Admission Diagnoses: Acute appendicitis Hospital Course: Overall patient did well and required to be on antimicrobial therapy for different reasons and was found to have excessive diarrhea was tested for C. difficile and was placed on oral vancomycin per hospitalist service. Discharge Summary: Patient was admitted on my service for acute appendicitis and undergone uneventful laparoscopic appendectomy. Tolerated well p.o. intake and pain under control. Hospitalist service managed the UTI and the C. difficile that happened in the interim. We will plan to discharge patient home today with appropriate antimicrobial therapy coverage and the plan to follow-up with the surgery office in a week to 10 days. I did coordinate safe discharge with Dr. Cortés hospitalist service and the patient was updated and verbalized her understanding. SSS Data Data Completed and Pending: Completed Studies During Hospitalization Category Date Time Status CT abdomen pelvis w con* [id number] Urge nt Cat Scan 12/30/19 21:04 Completed Pending at discharge Category Date Time Status ES surgery / GI i mages Routine Exams 12/31/19 10:45 Ordered Blood Culture Sta t Lab 12/31/19 16:27 Results Clostridioides Di fficile PCR Routin e Lab 01/01/20 09:34 Ordered MRSA by PCR Routi ne Lab 12/31/19 18:24 Received Pathology: Surgic al [PTH] Routine Pth 12/31/19 12:15 Received Diagnoses at Discharge Discharge Diagnosis (1) Acute appendicitis: Status: Resolved Problem details: Condition resolved and patient is doing well Qualifiers: Acute appendicitis type: unspecified acute appendicitis type Qualified Code(s): K35.80 - Unspecified acute appendicitis (2) Low back pain: Status: Acute Problem details: Medical managemnet Qualifiers: Back pain laterality: right Chronicity: acute Sciatica presence: without sciatica Qualified Code(s): M54.5 - Low back pain (3) UTI (urinary tract infection): Status: Acute Problem details: Will defer to hospitalist service for further antimicrobial therapy Qualifiers: Hematuria presence: without hematuria Urinary tract infection type: acute cystitis Qualified Code(s): N30.00 - Acute cystitis without hematuria (4) Dystonic movements: Status: Resolved Problem details: Medical management Discharge Plan Discharge Patient Disposition: Home Condition: Stable Prescriptions: [place] 5-325 mg tablet 1 tab PO Q6H PRN (Reason: pain) Qty: 28 RF: 0 Cipro 500 mg tablet 500 mg PO BID Qty: 14 RF: 0 Flagyl 500 mg tablet 500 mg PO Q8H 7 Days Qty: 21 RF: 0 vancomycin 1,000 mg Recon Soln 125 mg PO QID 14 Days RF: 0 Continued tizanidine 2 mg tablet 2 mg PO BID Qty: 60 RF: 2 Spiriva with HandiHaler 18 mcg capsule, w/inhalation device 1 cap INHALATION DAILY Qty: 30 RF: 2 sucralfate [Carafate] 1 gram tablet 1 gm PO BID Qty: 60 RF: 2 magnesium oxide 400 mg magnesium tablet 400 mg PO BID Qty: 60 RF: 2 Trulicity 0.75 mg/0.5 mL pen injector 0.75 mg SUBCUT Q7D Qty: 2 RF: 2 Symbicort 160-4.5 mcg/actuation HFA aerosol inhaler 2 puff INHALATION Q12H Qty: 10.2 RF: 2 lisinopril 5 mg tablet 5 mg PO DAILY Qty: 30 RF: 2 aripiprazole [Abilify] 20 mg tablet 20 mg PO DAILY Qty: 30 RF: 2 erythromycin 5 mg/gram (0.5 %) ointment 1 applic ophthalmic (eye) Q12H Qty: 1 RF: 0 acetaminophen [Tylenol] 325 mg Tablet 325 - 650 mg PO Q4H PRN (Reason: Pain) RF: 0 multivitamin [Multiple Vitamins] Tablet 1 tab PO DAILY RF: 0 albuterol sulfate [ProAir HFA] 90 mcg/actuation Hfa Aerosol Inhaler 2 puff INHALATION Q6H PRN (Reason: Shortness Of Breath) RF: 0 fenofibrate nanocrystallized 145 mg tablet 145 mg PO DAILY RF: 0 benztropine 1 mg tablet 1 mg PO BEDTIME RF: 0 omeprazole 20 mg capsule,delayed release(DR/EC) 20 mg PO DAILY RF: 0 mirtazapine [Remeron] 15 mg tablet 15 mg PO BEDTIME RF: 0 Cbd Oil See Rx Instructions .ROUTE .COMPLEX RF: 0 aspirin [Adult Aspirin Regimen] 81 mg tablet,delayed release (DR/EC) 81 mg PO DAILY Qty: 30 RF: 0 naproxen 500 mg tablet 500 mg PO BID Qty: 20 RF: 0 Discontinued cephalexin 500 mg tablet 500 mg PO TID 7 Days Qty: 21 RF: 0 No Action zonisamide 50 mg capsule 50 mg PO BID Qty: 60 RF: 2 Discharge Orders: Discharge Order (Routine); Ordered 01/01/20 Ordered By: Piero Norris Referrals: Piero Norris MD [Physician] - (Return to surgery office in one week [facility] [place] Surgical Sales Representative's will call you with an appointment. If you do not hear from them please call [phone].) Lucila Thomas, HAND GRINDER-C [Primary Care Provider] - ([facility] will call you Friday with an appointment within a week. If you do not hear from them please call [phone]) Discharge Diet: Advance as tolerated Discharge Activity: Limit activity as instructed Patient Instructions: Ciprofloxacin (By mouth), Metronidazole (By mouth), Hydrocodone (By mouth), Appendicitis (GEN), Urinary Tract Infection in Women (DC), Back Pain (GEN) Activity Restrictions/Additional Instructions: 1. Patient can shower after 48 hours from surgery 2. Remove Dermabond 7 to 10 days after surgery, if there is a secondary dressing can take down after 48 hours. 3. Up and walking as tolerated 4. Do lift more than 5 pounds first 2 weeks after surgery and not more than 25 pounds 6 to 8 weeks after surgery. 5. Do not operate heavy machinery or drive while using pain medications. 6.Contact the office or return to the ER for worsening nausea vomiting fevers or chills, or noticing any redness around incision sites or discharge. Discharge Date/Time: 01/01/20 17:36 Attestations Medical Necessity Statement*: Observation status as patient required hospitalization and observed till she tolerates well p.o. intake. Time Spent in Patient Care*: greater than 30 min Specific Discharge Activities: Specific discharge activities: educating patient Status at Discharge: Cognitive status at discharge: mildly impaired cognition , Behavioral status at discharge: cooperative , Functional status at discharge: other Overall status at discharge: patient is progressing back to baseline Quality Metrics Clinical Quality Measures: During this hospital stay, did patient experience: None (Except for C. difficile) Coding Level of Care Code Acute Instrument Engineer for Lenny Winn Diagnoses Acute appendicitis K35.80 Acute appendicitis type: unspecified acute appendicitis type Low back pain M54.5 Back pain laterality: right Chronicity: acute Sciatica presence: without sciatica UTI (urinary tract infection) N30.00 Hematuria presence: without hematuria Urinary tract infection type: acute cystitis Dystonic movements G24.9
[2020-01-01] MEDS: vancomycin 1,000 MG in sodium chloride 0.9% 250 ML 250 MG IV (10:23)
[2020-01-01 11:01] LABS: Glucose Point of Care 125 mg/dL (70-110)
[2020-01-01 14:42] LABS: SARS Covid-2 Antigen Negative (Negative)
[2020-01-01 16:57] LABS: Glucose Point of Care 108 mg/dL (70-110)
--- NOTE | 2020-01-03 07:48 | PC.RESP ---
Smoking Cessation and Pulmonary Rehab information sent to patient.
== END 2020-01-01 17:36 | disposition home or self-care (01) ==
LOC: ER 22:44 → MEDSURG 23:41
PROVIDERS: Emergency Medicine; Internal Medicine; Student in an Organized Health Care Education/Training Program; Admitting Provider Surgery; PCP Nurse Practitioner; Visit Provider Surgery
PROC: 0DTJ4ZZ Resection of Appendix, Percutaneous Endoscopic Approach (ICD-10-PCS; CPT 44970; principal; 2019-12-31 11:00)
DX: K35.891 Other acute appendicitis without perforation, with gangrene (principal); A04.72 Enterocolitis due to Clostridium difficile, not specified as recurrent; M54.5 Low back pain; N30.00 Acute cystitis without hematuria; J43.9 Emphysema, unspecified; E11.9 Type 2 diabetes mellitus without complications; E78.5 Hyperlipidemia, unspecified; I10 Essential (primary) hypertension; G24.9 Dystonia, unspecified; M79.7 Fibromyalgia; F25.1 Schizoaffective disorder, depressive type; F17.200 Nicotine dependence, unspecified, uncomplicated; Z79.82 Long term (current) use of aspirin; Z79.84 Long term (current) use of oral hypoglycemic drugs; Z79.51 Long term (current) use of inhaled steroids; Z86.73 Personal history of transient ischemic attack (TIA), and cerebral infarction without residual deficits
CPT/HCPCS: 44970; 12345; 36415; 36416; 36600; 51702; 74177; 80048; 80053; 81001; 82803; 82962; 83036; 83540; 83550; 83690; 84145; 84443; 85025; 87040; 87426; 87493; 87641; 88304; 94640; 96361; 96365; 96366; 96375; 99283; C9113; G0378; J0131; J1170; J1200; J2060; J2405; J2543; J2704; J2710; J2765; J3010; J3370; J3490; J7030; J7050; J7626; Q9967

== ENCOUNTER 2020-01-03 21:01 | Inpatient (IN) | payer MEDICARE, SELFPAY ==
[2020-01-03 21:08] VITALS: BP 121/62; PULSE 110; RESP 24; TEMP 39.3; O2SAT 97; BMI 25.7
--- NOTE | 2020-01-03 21:16 | XRR_ITS ---
PROCEDURE INFORMATION: Exam: XR Chest, 1 View Exam date and time: 01/03/2020 9:34 PM Age: 54 years old Clinical indication: Device placement; Ng tube; Prior surgery; Surgery date: Post-operative (0-2 days); Additional info: Fever TECHNIQUE: Imaging protocol: XR of the chest Views: 1 view. COMPARISON: CR XR chest 1V portable [id number] 11/29/2019 9:04 PM FINDINGS: Lungs: Lungs are well aerated without a focal area of consolidation. Emphysema Pleural space: Unremarkable. No pleural effusion. No pneumothorax. Heart/Mediastinum: Unremarkable. No cardiomegaly. Bones/joints: Prior surgical fixation of the caudal aspect of the cervical spine. XR/XR chest 1V portable [id number] IMPRESSION: Lungs are well aerated without a focal area of consolidation.
[2020-01-03 21:30] VITALS: BP 107/66; PULSE 76; RESP 18; O2SAT 96
[2020-01-03] MEDS: sodium chloride 0.9% 1,000 ML 999 ML IV (21:42)
[2020-01-03] MEDS: acetaminophen 500 mg Tablet 1000 MG PO (21:43)
--- NOTE | 2020-01-03 21:45 | W.ED.ABDPA2 ---
Documented by User: Sara Conway MD 01/10/20 19:06 HPI - Abdominal Pain General: Chief Complaint: Abdominal Pain Stated Complaint: ABD PAIN Time Seen by Provider: 01/03/20 21:16 History of Present Illness: HPI narrative: This patient is a 54-year-old female who comes in today with fever. She had her appendix removed on . She was in the hospital for several days afterward and eventually was diagnosed with C. difficile. Today she returns with a fever as high as 103. She is also having severe pain across her lower abdomen. She has been having a lot of loose bowel movements but that she has not had a bowel movement or passed gas since about 230 this afternoon. She has not had any vomiting. MD elicited complaint: abdominal pain Onset (ago): day(s) (Today) Pain Consistency: constant Location: RLQ and LLQ Severity: severe Quality: sharp Radiation: none Migration to: no migration Context: recent surgery/procedure Associated Symptoms: Reports diarrhea and fever(s); Denies chills, nausea and vomiting Review of Systems General: Reports: 10 or more systems reviewed and unremarkable except in HPI and below Const: Reports: fever(s) and malaise; Denies: chills or fatigue Eyes: Denies: change in vision ENMT: Denies: odynophagia Card: Denies: chest pain or swelling of feet/ankles Resp: Denies: dyspnea, productive cough or non-productive cough GI: Reports: abdominal pain and diarrhea; Denies: nausea or vomiting : Denies: flank pain or difficulty voiding Musc: Denies: neck pain or back pain Skin/Breast: Denies: rash Neuro: Denies: headache(s), numbness in extremities or weakness in extremities Pablo/Lymph: Denies: easy bruising or easy bleeding PFSH ED PFSH: Medical History Cannabis dependence, uncomplicated Cervical disc disorder with myelopathy of mid-cervical region Cervical post-laminectomy syndrome COPD (chronic obstructive pulmonary disease) Diabetes mellitus GERD with esophagitis History of methamphetamine abuse Major depressive disorder, recurrent severe without psychotic features Schizoaffective disorder, depressive type Smoker Surgical History History of angiography Brain June 2019 History of brain surgery June 21, 2019 endovascular treatment of dural AV fistula History of cervical spinal arthrodesis C4-C6 ACDFF; [place], [place]; 11/01/2015 History of hysterectomy Family History Mother Cancer Heart disease Social History Smoking and tobacco status: current every day smoker Second hand smoke exposure: Yes Smoking risk assessment/counseling performed?: Yes Alcohol intake: never Desire information about alcohol rehabilitation?: No Counseling given: No Desire information about substance/drug rehabilitation?: No Counseling given: No Adopted: No Caregiver/support person: No Lives independently: Yes Household members: spouse Marital status: Number of children: 0 service: No Current occupational status: unemployed Current occupational exposures/hazards: No Pets and animals: Yes History of recent travel: No Current gender identity: Female Physical Exam Const: COMMON NORMALS: no acute distress, patient oriented x3, no limitations and alert GENERAL APPEARANCE: cooperative and comfortable HENMT: HEAD & SCALP: normal to inspection FACE & SINUS: normal facial exam Eye: GENERAL EYE: appearance normal, both eyes and all related structures Neck/C-Spine: COMMON NORMALS: supple, no meningeal signs and no JVD Chest: COMMONS NORMALS: normal inspection of the chest Resp: COMMON NORMALS: normal respiratory effort, No use of accessory muscles and clear to auscultation bilaterally AUSCULTATION: clear to auscultation bilaterally Cardio: COMMON NORMALS: no JVD, regular rate, regular rhythm and No murmurs present (Cardio) RATE: regular rate RHYTHM: regular rhythm GI: PALPATION: Yes Tenderness to palpation present (GI) (marked) Details: LLQ and RLQ Back/Pelvis: COMMON NORMALS: thoracic and lumbar spine normal to inspection Extremity: COMMON NORMALS: normal to inspection Neuro: COMMON NORMALS: patient oriented x3, moves all extremities, no focal motor deficits and no sensory deficits noted SENSORIUM/ORIENTATION: Yes alert MENINGEAL SIGNS: Yes no meningeal signs Psych: COMMON NORMALS: mental status grossly normal, cooperative and normal affect Skin: COMMON NORMALS: no rashes or lesions noted and turgor normal GENERAL SKIN EXAM: no rashes or lesions noted and turgor normal Course Vital Signs: Vital signs: Vital Signs Temperature 98.7 F 01/05/20 21:02 Pulse Rate 70 01/05/20 21:02 Respiratory Rate 18 01/05/20 21:02 Blood Pressure 111/61 01/05/20 21:02 Pulse Oximetry 97 01/05/20 21:02 MDM - Abdominal Pain Lab Data: Labs: Lab Results 01/03/20 01/03/20 01/03/20 Range/Units 21:43 21:43 21:43 WBC 10.4 H (4.0-10.0) 10^3/ uL RBC 3.85 L (4.1-5.3) 10^6/u L Hgb 11.5 (11.5-15.3) g/dL Hct 34.3 L (37.0-47.0) % MCV 89.1 (81-99) fL MCH 29.9 (28.0-34.0) pg MCHC 33.5 (30.0-36.0) g/dL RDW 13.3 (12.1-15.1) % Plt Count 306 (130-400) 10^3/c mm MPV 10.4 (7.4-10.4) fL Neut % (Auto) 71.8 % Lymph % (Auto) 20.5 % Russell % (Auto) 5.0 % Eos % (Auto) 2.0 % Baso % (Auto) 0.4 % Neut # (Auto) 7.44 (1.8-7.7) 10^3/u L Lymph # (Auto) 2.1 (0.8-4.8) 10^3/u L Russell # (Auto) 0.5 (0.2-0.9) 10^3/u L Eos # (Auto) 0.2 (0.0-0.8) 10^3/u L Baso # (Auto) 0.0 (0.0-0.1) 10^3/u L Nucleated RBC % (a uto) 0 % Nucleated RBCs # 0.0 /100WBC Sodium 135 L (136-145) mmol/L Potassium 2.7 L* (3.5-5.1) mmol/L Chloride 105 (98-107) mmol/L Carbon Dioxide 20 L (22-29) mmol/L Anion Gap 12.7 (5-19) BUN 7 (6-20) mg/dL Creatinine 0.9 (0.5-0.9) mg/dL GFR Calculation 65.2 L (90-130) mL/min Glucose 135 H (65-115) mg/dL Calculated Osmolal ity 280 L (285-295) mOsm/k g Lactic Acid 1.0 (0.5-2.2) mmol/L Calcium 8.9 (8.5-10.5) mg/dL Total Bilirubin 0.2 (0.15-1.2) mg/dL AST 18 (0-32) U/L ALT 16 (0-33) U/L Alkaline Phosphata se 63 (35-105) IU/L Total Protein 6.7 (6.6-8.7) g/dL Albumin 3.6 (3.5-5.2) g/dL Globulin 3.1 (1.3-4.6) g/dL Triglycerides (0-150) mg/dL Lipase 970 H (13-60) U/L Urine Color (Yellow) Urine Appearance (CLEAR) Urine pH (5-7) Ur Specific Gravit y (1.005-1.030) Urine Protein (Negative) Urine Glucose (UA) (Normal) Urine Ketones (Negative) Urine Blood (Negative) Urine Nitrate (Negative) Urine Bilirubin (Negative) Urine Urobilinogen (Negative) mg/dL Ur Leukocyte Marisa ase (Negative) Urine Opiates Scre en (Negative) ng/mL Ur Barbiturates Sc reen (Negative) ng/mL Ur Phencyclidine S crn (Negative) ng/mL Ur Amphetamines Sc reen (Negative) ng/mL U Benzodiazepines Scrn (Negative) ng/mL Urine Cocaine Scre en (Negative) ng/mL U Marijuana (THC) Screen (Negative) ng/mL 01/03/20 01/03/20 01/03/20 Range/Units 21:43 22:12 22:12 WBC (4.0-10.0) 10^3/ uL RBC (4.1-5.3) 10^6/u L Hgb (11.5-15.3) g/dL Hct (37.0-47.0) % MCV (81-99) fL MCH (28.0-34.0) pg MCHC (30.0-36.0) g/dL RDW (12.1-15.1) % Plt Count (130-400) 10^3/c mm MPV (7.4-10.4) fL Neut % (Auto) % Lymph % (Auto) % Russell % (Auto) % Eos % (Auto) % Baso % (Auto) % Neut # (Auto) (1.8-7.7) 10^3/u L Lymph # (Auto) (0.8-4.8) 10^3/u L Russell # (Auto) (0.2-0.9) 10^3/u L Eos # (Auto) (0.0-0.8) 10^3/u L Baso # (Auto) (0.0-0.1) 10^3/u L Nucleated RBC % (a uto) % Nucleated RBCs # /100WBC Sodium (136-145) mmol/L Potassium (3.5-5.1) mmol/L Chloride (98-107) mmol/L Carbon Dioxide (22-29) mmol/L Anion Gap (5-19) BUN (6-20) mg/dL Creatinine (0.5-0.9) mg/dL GFR Calculation (90-130) mL/min Glucose (65-115) mg/dL Calculated Osmolal ity (285-295) mOsm/k g Lactic Acid (0.5-2.2) mmol/L Calcium (8.5-10.5) mg/dL Total Bilirubin (0.15-1.2) mg/dL AST (0-32) U/L ALT (0-33) U/L Alkaline Phosphata se (35-105) IU/L Total Protein (6.6-8.7) g/dL Albumin (3.5-5.2) g/dL Globulin (1.3-4.6) g/dL Triglycerides 147 (0-150) mg/dL Lipase (13-60) U/L Urine Color Yellow (Yellow) Urine Appearance Clear (CLEAR) Urine pH 6 (5-7) Ur Specific Gravit y 1.015 (1.005-1.030) Urine Protein Neg (Negative) Urine Glucose (UA) Norm (Normal) Urine Ketones Negative (Negative) Urine Blood Neg (Negative) Urine Nitrate Negative (Negative) Urine Bilirubin Neg (Negative) Urine Urobilinogen Norm (Negative) mg/dL Ur Leukocyte Marisa ase Negative (Negative) Urine Opiates Scre en Negative (Negative) ng/mL Ur Barbiturates Sc reen Negative (Negative) ng/mL Ur Phencyclidine S crn Negative (Negative) ng/mL Ur Amphetamines Sc reen Negative (Negative) ng/mL U Benzodiazepines Scrn Negative (Negative) ng/mL Urine Cocaine Scre en Negative (Negative) ng/mL U Marijuana (THC) Screen Negative (Negative) ng/mL Discharge Plan Discharge Patient Disposition: Admitted As Inpatient Admit Provider: Sabrina Barney Clinical Impression: Pancreatitis, Fever Condition: Stable Referrals: Lucila Thomas, KANDIS [Primary Care Provider] - (Please call patient at home with a hospital follow up appointment in 7-10 days. Faxed information to clinic) Discharge Diet: Usual diet Discharge Activity: Resume usual activity Patient Instructions: Pancreatitis (DC), Clostridium Difficile Infection (DC) Discharge Date/Time: 01/04/20 01:07 Coding Level of Care Code ED Standpipe Tender for Chg Fwd Exam Comprehensive Documented by User: Daniella Ortiz MD 01/04/20 00:02 HPI - Abdominal Pain General: Chief Complaint: Abdominal Pain Stated Complaint: ABD PAIN Time Seen by Provider: 01/03/20 21:16 [facility] ED PFSH: Medical History Cannabis dependence, uncomplicated Cervical disc disorder with myelopathy of mid-cervical region Cervical post-laminectomy syndrome COPD (chronic obstructive pulmonary disease) Diabetes mellitus GERD with esophagitis History of methamphetamine abuse Major depressive disorder, recurrent severe without psychotic features Schizoaffective disorder, depressive type Smoker Surgical History History of angiography Brain June 2019 History of brain surgery June 21, 2019 endovascular treatment of dural AV fistula History of cervical spinal arthrodesis C4-C6 ACDFF; [place], [place]; 11/01/2015 History of hysterectomy Family History Mother Cancer Heart disease Social History Smoking and tobacco status: current every day smoker Second hand smoke exposure: Yes Smoking risk assessment/counseling performed?: Yes Alcohol intake: never Desire information about alcohol rehabilitation?: No Counseling given: No Desire information about substance/drug rehabilitation?: No Counseling given: No Adopted: No Caregiver/support person: No Lives independently: Yes Household members: spouse Marital status: Number of children: 0 service: No Current occupational status: unemployed Current occupational exposures/hazards: No Pets and animals: Yes History of recent travel: No Current gender identity: Female Course Vital Signs: Vital signs: Vital Signs Temperature 98.7 F 01/05/20 21:02 Pulse Rate 70 01/05/20 21:02 Respiratory Rate 18 01/05/20 21:02 Blood Pressure 111/61 01/05/20 21:02 Pulse Oximetry 97 01/05/20 21:02 MDM - Abdominal Pain MDM Narrative: Medical decision making narrative: Patient presents here with fever was found to have pancreatitis. Patient is postop from appendicitis last week. She had a fever of 102.8. Patient has no signs of acute infection and CT abdomen and blood work are normal besides her pancreatitis. Spoke to hospitalist will admit. Patient has been stable while down here. Lab Data: Labs: Lab Results 01/03/20 01/03/20 01/03/20 Range/Units 21:43 21:43 21:43 WBC 10.4 H (4.0-10.0) 10^3/ uL RBC 3.85 L (4.1-5.3) 10^6/u L Hgb 11.5 (11.5-15.3) g/dL Hct 34.3 L (37.0-47.0) % MCV 89.1 (81-99) fL MCH 29.9 (28.0-34.0) pg MCHC 33.5 (30.0-36.0) g/dL RDW 13.3 (12.1-15.1) % Plt Count 306 (130-400) 10^3/c mm MPV 10.4 (7.4-10.4) fL Neut % (Auto) 71.8 % Lymph % (Auto) 20.5 % Russell % (Auto) 5.0 % Eos % (Auto) 2.0 % Baso % (Auto) 0.4 % Neut # (Auto) 7.44 (1.8-7.7) 10^3/u L Lymph # (Auto) 2.1 (0.8-4.8) 10^3/u L Russell # (Auto) 0.5 (0.2-0.9) 10^3/u L Eos # (Auto) 0.2 (0.0-0.8) 10^3/u L Baso # (Auto) 0.0 (0.0-0.1) 10^3/u L Nucleated RBC % (a uto) 0 % Nucleated RBCs # 0.0 /100WBC Sodium 135 L (136-145) mmol/L Potassium 2.7 L* (3.5-5.1) mmol/L Chloride 105 (98-107) mmol/L Carbon Dioxide 20 L (22-29) mmol/L Anion Gap 12.7 (5-19) BUN 7 (6-20) mg/dL Creatinine 0.9 (0.5-0.9) mg/dL GFR Calculation 65.2 L (90-130) mL/min Glucose 135 H (65-115) mg/dL Calculated Osmolal ity 280 L (285-295) mOsm/k g Lactic Acid 1.0 (0.5-2.2) mmol/L Calcium 8.9 (8.5-10.5) mg/dL Total Bilirubin 0.2 (0.15-1.2) mg/dL AST 18 (0-32) U/L ALT 16 (0-33) U/L Alkaline Phosphata se 63 (35-105) IU/L Total Protein 6.7 (6.6-8.7) g/dL Albumin 3.6 (3.5-5.2) g/dL Globulin 3.1 (1.3-4.6) g/dL Triglycerides (0-150) mg/dL Lipase 970 H (13-60) U/L Urine Color (Yellow) Urine Appearance (CLEAR) Urine pH (5-7) Ur Specific Gravit y (1.005-1.030) Urine Protein (Negative) Urine Glucose (UA) (Normal) Urine Ketones (Negative) Urine Blood (Negative) Urine Nitrate (Negative) Urine Bilirubin (Negative) Urine Urobilinogen (Negative) mg/dL Ur Leukocyte Marisa ase (Negative) Urine Opiates Scre en (Negative) ng/mL Ur Barbiturates Sc reen (Negative) ng/mL Ur Phencyclidine S crn (Negative) ng/mL Ur Amphetamines Sc reen (Negative) ng/mL U Benzodiazepines Scrn (Negative) ng/mL Urine Cocaine Scre en (Negative) ng/mL U Marijuana (THC) Screen (Negative) ng/mL 01/03/20 01/03/20 01/03/20 Range/Units 21:43 22:12 22:12 WBC (4.0-10.0) 10^3/ uL RBC (4.1-5.3) 10^6/u L Hgb (11.5-15.3) g/dL Hct (37.0-47.0) % MCV (81-99) fL MCH (28.0-34.0) pg MCHC (30.0-36.0) g/dL RDW (12.1-15.1) % Plt Count (130-400) 10^3/c mm MPV (7.4-10.4) fL Neut % (Auto) % Lymph % (Auto) % Russell % (Auto) % Eos % (Auto) % Baso % (Auto) % Neut # (Auto) (1.8-7.7) 10^3/u L Lymph # (Auto) (0.8-4.8) 10^3/u L Russell # (Auto) (0.2-0.9) 10^3/u L Eos # (Auto) (0.0-0.8) 10^3/u L Baso # (Auto) (0.0-0.1) 10^3/u L Nucleated RBC % (a uto) % Nucleated RBCs # /100WBC Sodium (136-145) mmol/L Potassium (3.5-5.1) mmol/L Chloride (98-107) mmol/L Carbon Dioxide (22-29) mmol/L Anion Gap (5-19) BUN (6-20) mg/dL Creatinine (0.5-0.9) mg/dL GFR Calculation (90-130) mL/min Glucose (65-115) mg/dL Calculated Osmolal ity (285-295) mOsm/k g Lactic Acid (0.5-2.2) mmol/L Calcium (8.5-10.5) mg/dL Total Bilirubin (0.15-1.2) mg/dL AST (0-32) U/L ALT (0-33) U/L Alkaline Phosphata se (35-105) IU/L Total Protein (6.6-8.7) g/dL Albumin (3.5-5.2) g/dL Globulin (1.3-4.6) g/dL Triglycerides 147 (0-150) mg/dL Lipase (13-60) U/L Urine Color Yellow (Yellow) Urine Appearance Clear (CLEAR) Urine pH 6 (5-7) Ur Specific Gravit y 1.015 (1.005-1.030) Urine Protein Neg (Negative) Urine Glucose (UA) Norm (Normal) Urine Ketones Negative (Negative) Urine Blood Neg (Negative) Urine Nitrate Negative (Negative) Urine Bilirubin Neg (Negative) Urine Urobilinogen Norm (Negative) mg/dL Ur Leukocyte Marisa ase Negative (Negative) Urine Opiates Scre en Negative (Negative) ng/mL Ur Barbiturates Sc reen Negative (Negative) ng/mL Ur Phencyclidine S crn Negative (Negative) ng/mL Ur Amphetamines Sc reen Negative (Negative) ng/mL U Benzodiazepines Scrn Negative (Negative) ng/mL Urine Cocaine Scre en Negative (Negative) ng/mL U Marijuana (THC) Screen Negative (Negative) ng/mL Imaging Data ^: CT Abd/Pel: Radiologist's impression: [address] [address] [address] Scan Report Signed Patient: Brenna Francisco Unit #: [id number] : 1965 Age/Sex: 54 / F ADM Date: 01/03/20 Loc: ER Room/Bed: Attending Dr: Ordering Provider/Ordering MD: Sara Conway MD Date of Service: 01/03/20 Procedure(s): CT abdomen pelvis w con* [id number] Accession Number(s): [id number] Report Number: [id number] PROCEDURE INFORMATION: Exam: CT Abdomen And Pelvis With Contrast Exam date and time: 01/03/2020 10:19 PM Age: 54 years old Clinical indication: Fever; Abdominal pain; Prior surgery; Surgery type: Appy, hyst; Additional info: Abdominal pain, fever TECHNIQUE: Imaging protocol: Computed tomography of the abdomen and pelvis with intravenous contrast. Radiation optimization: All CT scans at this facility use at least one of these dose optimization techniques: automated exposure control; mA and/or kV adjustment per patient size (includes targeted exams where dose is matched to clinical indication); or iterative reconstruction. Contrast material: OMNI 300; Contrast volume: 95 ml; Contrast route: INTRAVENOUS (IV); COMPARISON: CT abdomen pelvis w con* [id number] 12/30/2019 9:47 PM RADIATION DOSE METRICS: Total DLP (mGy-cm): 762.33 FINDINGS: Liver: Normal. No mass. Gallbladder and bile ducts: Normal. No calcified stones. No ductal dilation. Pancreas: Normal. No ductal dilation. Spleen: Normal. No splenomegaly. Adrenals: Normal. No mass. Kidneys and ureters: Right kidney punctate nonobstructing calyceal stone Stomach and bowel: Prominent fluid in the small bowel and colon suggestive of an ileus. Diverticulosis without diverticulitis. Appendix: No evidence of appendicitis. Intraperitoneal space: Unremarkable. No free air. No significant fluid collection. Vasculature: Unremarkable. No abdominal aortic aneurysm. Lymph nodes: Unremarkable. No enlarged lymph nodes. Bladder: Unremarkable as visualized. Reproductive: Unremarkable as visualized. Bones/joints: Unremarkable. No acute fracture. Soft tissues: Subcutaneous emphysema over the anterior abdominal wall. CT/CT abdomen pelvis w con* [id number] IMPRESSION: 1. Negative for focal fluid collection to suggest abscess 2. Prominent fluid in the small bowel and colon suggestive of an ileus. 3. Diverticulosis without diverticulitis. 4. Subcutaneous emphysema over the anterior abdominal wall. Discharge Plan Discharge Patient Disposition: Admitted As Inpatient Admit Provider: Sabrina Barney Clinical Impression: Pancreatitis, Fever Condition: Stable Referrals: Lucila Thomas, [employer] [Primary Care Provider] - (Please call patient at home with a hospital follow up appointment in 7-10 days. Faxed information to clinic) Discharge Diet: Usual diet Discharge Activity: Resume usual activity Patient Instructions: Pancreatitis (DC), Clostridium Difficile Infection (DC) Discharge Date/Time: 01/04/20 01:07 Coding Level of Care Code ED Standpipe Tender for Chg Fwd Exam Comprehensive
[2020-01-03 21:50] LABS: Basophils % 0.4 %; Eosinophils # 0.2 10^3/uL (0.0-0.8); Hematocrit 34.3 % (37.0-47.0); Hemoglobin 11.5 g/dL (11.5-15.3); Lymphocytes # 2.1 10^3/uL (0.8-4.8); Lymphocytes % 20.5 %; Mean Corpuscular HGB Conc 33.5 g/dL (30.0-36.0); Mean Corpuscular Hemoglobin 29.9 pg (28.0-34.0); Mean Corpuscular Volume 89.1 fL (81-99); Mean Platelet Volume 10.4 fL (7.4-10.4); Monocytes # 0.5 10^3/uL (0.2-0.9); Neutrophils # 7.44 10^3/uL (1.8-7.7); Neutrophils % 71.8 %; Nucleated Red Blood Cells % 0 %; Platelet Count 306 10^3/cmm (130-400); Red Blood Count 3.85 10^6/uL (4.1-5.3); Red Cell Distribution Width 13.3 % (12.1-15.1); White Blood Count 10.4 10^3/uL (4.0-10.0)
--- NOTE | 2020-01-03 22:08 | CTR_ITS ---
PROCEDURE INFORMATION: Exam: CT Abdomen And Pelvis With Contrast Exam date and time: 01/03/2020 10:19 PM Age: 54 years old Clinical indication: Fever; Abdominal pain; Prior surgery; Surgery type: Appy, hyst; Additional info: Abdominal pain, fever TECHNIQUE: Imaging protocol: Computed tomography of the abdomen and pelvis with intravenous contrast. Radiation optimization: All CT scans at this facility use at least one of these dose optimization techniques: automated exposure control; mA and/or kV adjustment per patient size (includes targeted exams where dose is matched to clinical indication); or iterative reconstruction. Contrast material: OMNI 300; Contrast volume: 95 ml; Contrast route: INTRAVENOUS (IV); COMPARISON: CT abdomen pelvis w con* [id number] 12/30/2019 9:47 PM RADIATION DOSE METRICS: Total DLP (mGy-cm): 762.33 FINDINGS: Liver: Normal. No mass. Gallbladder and bile ducts: Normal. No calcified stones. No ductal dilation. Pancreas: Normal. No ductal dilation. Spleen: Normal. No splenomegaly. Adrenals: Normal. No mass. Kidneys and ureters: Right kidney punctate nonobstructing calyceal stone Stomach and bowel: Prominent fluid in the small bowel and colon suggestive of an ileus. Diverticulosis without diverticulitis. Appendix: No evidence of appendicitis. Intraperitoneal space: Unremarkable. No free air. No significant fluid collection. Vasculature: Unremarkable. No abdominal aortic aneurysm. Lymph nodes: Unremarkable. No enlarged lymph nodes. Bladder: Unremarkable as visualized. Reproductive: Unremarkable as visualized. Bones/joints: Unremarkable. No acute fracture. Soft tissues: Subcutaneous emphysema over the anterior abdominal wall. CT/CT abdomen pelvis w con* [id number] IMPRESSION: 1. Negative for focal fluid collection to suggest abscess 2. Prominent fluid in the small bowel and colon suggestive of an ileus. 3. Diverticulosis without diverticulitis. 4. Subcutaneous emphysema over the anterior abdominal wall. Radiation Dose CTDIVOL = (mGy): DLP = 762.33 (mGy-cm)
[2020-01-03 22:10] LABS: Alanine Aminotransferase 16 U/L (0-33); Albumin Level 3.6 g/dL (3.5-5.2); Alkaline Phosphatase 63 IU/L (35-105); Anion Gap 12.7 (5-19); Aspartate Amino Transferase 18 U/L (0-32); Blood Urea Nitrogen 7 mg/dL (6-20); Calcium 8.9 mg/dL (8.5-10.5); Carbon Dioxide 20 mmol/L (22-29); Chloride 105 mmol/L (98-107); Globulin 3.1 g/dL (1.3-4.6); Glomerular Filtration Rate 65.2 mL/min (90-130); Glucose 135 mg/dL (65-115); Osmolality Calculated 280 mOsm/kg (285-295); Sodium 135 mmol/L (136-145); Total Bilirubin 0.2 mg/dL (0.15-1.2); Total Protein 6.7 g/dL (6.6-8.7)
[2020-01-03 22:13] VITALS: BP 104/40; PULSE 96; RESP 18; O2SAT 99
[2020-01-03 22:26] LABS: Lipase 970 U/L (13-60)
[2020-01-03 22:27] LABS: Potassium 2.7 mmol/L (3.5-5.1)
[2020-01-03] MEDS: iohexol 300 mg/mL 100 mL Btl IV (22:31)
[2020-01-03 22:35] LABS: Add Urine Microscopic? NO
[2020-01-03 23:01] VITALS: BP 108/56; PULSE 94; RESP 16; O2SAT 96
[2020-01-03 23:05] LABS: Bilirubin Urine Neg (Negative); Blood Urine Neg (Negative); Glucose Urine UA Norm (Normal); Ketones Urine Negative (Negative); Leukocyte Esterase Urine Negative (Negative); Nitrate Urine Negative (Negative); Protein Urine Neg (Negative); Specific Gravity, Urine 1.015 (1.005-1.030); Urine Appearance Clear (CLEAR); Urine Color Yellow (Yellow); Urobilinogen Urine Norm (Negative); pH Urine 6 (5-7)
[2020-01-03] MEDS: potassium chloride premix 40 MEQ/100 ML PREMIX 25 MEQ IV (23:06)
[2020-01-03] MEDS: magnesium sulfate premix 2 GM/50 ML PIGGYBACK IV (23:08)
--- NOTE | 2020-01-03 23:39 | P.HP_ITS ---
Providers/Chief Complaint Primary Care Provider: ROGER RomanC Chief Complaint: ABD PAIN History of Present Illness Brenna Francisco is a 54 year old female who was recently discharged after laparoscopic appendectomy and treatment of C. difficile on Friday came in today for worsening abdominal pain. Patient is stating that she has been feeling extremely lethargic and tired, temperature 102 at home, she did not experience any nausea, vomiting but she has been experiencing dry heaves with abdominal cramps and pain. Abdominal pain is mostly located around surgical site, she noticed mild bleeding around surgical site however no purulent drainage noticed. She has not noticed any productive cough, shortness of breath, chest pain or dysuria. 12/31: Antigen negative Diagnosis in the ER revealed sepsis with fever, leukocytosis, no active source of infection identified, x-ray same as last time, CT abdomen did not reveal ab scess, UA reviewed patient is not complaining of dysuria, she has not started her p.o. vancomycin at home for C. difficile I would start her on ceftriaxone, metronidazole along with p.o. vancomycin for ileus related to C. difficile and recent surgery Review of Systems Const: Reports: fever(s), chills, body aches and fatigue Eyes: Denies: change in vision ENMT: Denies: throat pain Card: Denies: chest pain Resp: Denies: dyspnea GI: Reports: abdominal pain, nausea and GI cramping; Denies: vomiting or constipation : Denies: flank pain, difficulty voiding or urinary frequency Musc: Denies: neck pain Skin/Breast: Denies: rash Neuro: Denies: headache(s), frequent falls or vertigo Psych: Reports: anxiety, depression and mood swings Endo: Denies: polyuria Pablo/Lymph: Denies: easy bruising All/Imm: Denies: urticaria Medications/Allergies Home Medications Medication Instructions Recorded Confirmed Last Taken Type aripiprazole 20 mg tablet 20 mg PO DAILY #30 tab 10/26/19 12/31/19 12/30/19 Rx acetaminophen [Tylenol] 325 - 650 mg PO Q4H PRN 11/29/19 12/31/19 12/02/19 History 2 tabs erythromycin 5 mg/gram (0.5 %) eye 1 applic OPHTHALMIC (EYE) Q12H #1 12/02/19 12/31/19 Unknown Rx ointment (3.5 gram tube) gm Cbd Oil See Rx Instructions .ROUTE .COMPLEX 12/03/19 12/31/19 Unknown History albuterol sulfate [ProAir HFA] 2 puff INHALATION Q6H PRN 12/03/19 12/31/19 Un known History benztropine 1 mg PO BEDTIME 12/03/19 12/31/19 12/30/19 History budesonide-formoterol HFA 160 2 puff INHALATION Q12H #10.2 gm 12/03/19 12/31/19 12/30/19 Rx mcg-4.5 mcg/actuation aerosol inhaler dulaglutide 0.75 mg/0.5 mL 0.75 mg SUBCUT Q7D #2 ml 12/03/19 12/31/19 12/30/19 Rx subcutaneous pen injector fenofibrate nanocrystallized 145 mg PO DAILY 12/03/19 12/31/19 12/30/19 History magnesium oxide 400 mg PO BID #60 tab 12/03/19 12/31/19 12/30/19 Rx mirtazapine [Remeron] 15 mg PO BEDTIME 12/03/19 12/31/19 12/02/19 History multivitamin [Multiple Vitamins] 1 tab PO DAILY 12/03/19 12/31/19 12/30/19 History omeprazole 20 mg PO DAILY 12/03/19 12/31/19 12/30/19 History sucralfate 1 gram tablet 1 gm PO BID #60 tab 12/03/19 12/31/19 12/30/19 Rx tiotropium bromide 18 mcg capsule 1 cap INHALATION DAILY #30 inh 12/03/19 12/31/19 12/30/19 Rx with inhalation device tizanidine 2 mg tablet 2 mg PO BID #60 tab 12/03/19 12/31/19 12/30/19 Rx aspirin [Adult Aspirin Regimen] 81 mg PO DAILY #30 tab 12/04/19 12/31/19 12/30/19 Rx lisinopril 5 mg tablet 5 mg PO DAILY #30 tab 12/09/19 12/31/19 12/30/19 Rx naproxen 500 mg PO BID #20 tab 12/26/19 12/31/19 Unknown Rx ciprofloxacin HCl [Cipro] 500 mg PO BID #14 tab 01/01/20 Unknown Rx hydrocodone-acetaminophen [[place]] 1 tab PO Q6H PRN #28 tab 01/01/20 Unknown Rx metronidazole [Flagyl] 500 mg PO Q8H 7 Days #21 tab 01/01/20 Unknown Rx vancomycin 125 mg PO QID 14 Days each 01/01/20 Unknown Rx zonisamide 50 mg capsule 50 mg PO BID #60 cap 01/01/20 Unknown Rx Allergies Allergy/AdvReac Type Severity Reaction Status Date / Time fluoxetine [From Prozac] Allergy rash Verified 12/31/19 06:21 haloperidol [From Haldol] Allergy rash Verified 12/31/19 06:21 Opioids - Morphine Analogues Allergy rash Verified 12/31/19 06:21 oxcarbazepine Allergy rash Verified 12/31/19 06:21 [From Trileptal] prednisone Allergy rash Verified 12/31/19 06:21 PFSH Acute PFSH: Medical History Cannabis dependence, uncomplicated Cervical disc disorder with myelopathy of mid-cervical region Cervical post-laminectomy syndrome COPD (chronic obstructive pulmonary disease) Diabetes mellitus GERD with esophagitis History of methamphetamine abuse Major depressive disorder, recurrent severe without psychotic features Schizoaffective disorder, depressive type Smoker Surgical History History of angiography Brain June 2019 History of brain surgery June 21, 2019 endovascular treatment of dural AV fistula History of cervical spinal arthrodesis C4-C6 ACDFF; [place], [place]; 11/01/2015 History of hysterectomy Family History Mother Cancer Heart disease Social History Smoking and tobacco status: current every day smoker Second hand smoke exposure: Yes Smoking risk assessment/counseling performed?: Yes Alcohol intake: never Desire information about alcohol rehabilitation?: No Counseling given: No Desire information about substance/drug rehabilitation?: No Counseling given: No Adopted: No Caregiver/support person: No Lives independently: Yes Household members: spouse Marital status: Number of children: 0 service: No Current occupational status: unemployed Current occupational exposures/hazards: No Pets and animals: Yes History of recent travel: No Current gender identity: Female Vitals/I&O/Wt Last Vital Signs Temp 102.8 F H 01/03/20 21:08 Pulse 96 01/03/20 22:13 Resp 18 01/03/20 22:13 BP 104/40 01/03/20 22:13 Pulse Ox 99 01/03/20 22:13 Weight last 48 hrs Weight 65.771 kg Physical Exam Narrative: EXAM NARRATIVE: Middle-age female currently laying in left lateral position Patient is stating that she wants to sleep as she has not slept well in last 24 hours, She was able to give me above-mentioned detail Complaining of abdominal pain, tender on superficial palpation right lower quadrant area, hypogastric region, no active purulent drainage noted, bowel so und present, epigastric and right upper quadrant area nontender S1, S2 no tachycardia or heart failure signs Unkempt malnourished appearance Lungs clear to auscultation Low extremity no edema gangrene or ulcer No neck rigidity or signs of meningismus Awake alert oriented x3 GCS 15 Data : 01/03/20 21:43 01/03/20 21:43 A&P Assessment and plan (1) Sepsis: Status: Acute (2) Ileus: Status: Acute (3) C. difficile diarrhea: Status: Acute (4) Hypokalemia: Status: Acute (5) Elevated lipase: Status: Acute Additional A&P Information Sepsis CT abdomen did not reveal any abscess, free air under diaphragm, Chest x-ray not showing new findings Patient is febrile with leukocytosis, considering recent surgery I would use ceftriaxone and metronidazole for gram-negative anaerobic coverage, continue p.o. vancomycin for C. difficile No signs of UTI, UA reviewed, no signs of meningismus, no atelectasis noted on chest x-ray No wound abscess Ileus Most likely secondary to C. difficile Monitor for worsening with abdominal cramps, constipation, abdominal distention, look for signs of megacolon, NG tube placement to low intermittent suction N.p.o. Hypokalemia secondary to C. difficile diarrhea Potassium repleted, will check magnesium level Elevated lipase level without active signs of pancreatitis on CT abdomen I do suspect high lipase level secondary to multiple antipsychotics and use of anesthetic agents for laparoscopic appendectomy, Full code N.p.o. DVT prophylaxis Lovenox Attestations Medical Necessity Statement*: Anticipating stay in the hospital course more than 2 midnights currently need management for sepsis and C. difficile diarrhea management Time Spent in Patient Care: (>than 50% of time spent in counselling and/or direct pt care on unit) . 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 difficile diarrhea A04.72 Hypokalemia E87.6 Elevated lipase R74.8
[2020-01-03 23:59] VITALS: BP 104/39; PULSE 96; RESP 16; O2SAT 97
[2020-01-04] VITALS (11 sets, daily range): BP systolic 94–137; BP diastolic 41–77; PULSE 83–94; RESP 16–20; TEMP 36.4–37.6; O2SAT 96–98
[2020-01-04 00:04] LABS: Triglycerides 147 mg/dL (0-150)
[2020-01-04] MEDS: sodium chloride 0.9% 1,000 ML 100 ML IV (00:17)
[2020-01-04 00:43] LABS: Amphetamines Screen Urine Negative (Negative); Barbiturates Screen Urine Negative (Negative); Benzodiazepines Screen Urine Negative (Negative); Cocaine Screen Urine Negative (Negative); Opiate Screen Urine Negative (Negative); PCP Screen Urine Negative (Negative); THC Screen Urine Negative (Negative)
[2020-01-04] MEDS: enoxaparin 40 mg/0.4 mL Syringe SUBCUT (02:33)
[2020-01-04] MEDS: cefTRIAXone 1,000 MG in sodium chloride 0.9% (plus) 50 ML 100 MG IV (02:33)
--- NOTE | 2020-01-04 03:05 | XRR_ITS ---
PROCEDURE INFORMATION: Exam: XR Chest, 1 View Exam date and time: 01/04/2020 4:58 AM Age: 54 years old Clinical indication: Device placement; Ng tube; Prior surgery; Surgery type: Appy, hyst; Additional info: Ng tube placed TECHNIQUE: Imaging protocol: XR of the chest Views: 1 view. COMPARISON: CR XR chest 1V portable [id number] 01/03/2020 9:24 PM FINDINGS: Tubes, catheters and devices: NG tube tip in the stomach. Lungs: Minimal left lower lung atelectasis. Pleural space: No definite pleural effusion. No pneumothorax. Heart/Mediastinum: Unremarkable. No cardiomegaly. Bones/joints: No acute findings. XR/XR chest 1V portable [id number] IMPRESSION: NG tube tip in the stomach.
[2020-01-04] MEDS: sodium chloride 0.9% 1,000 ML 999 ML IV (03:32)
[2020-01-04] MEDS: LORazepam 2 mg/mL INJ 1 mL 0.5 MG IVP (03:51)
[2020-01-04] MEDS: HYDROmorphone 1 mg/mL INJ 1 mL 2 MG IVP (05:00)
[2020-01-04] MEDS: ondansetron 2 mg/ML SDV 2 mL 4 MG IVP (05:00)
[2020-01-04] MEDS: metroNIDAZOLE IV 500 MG/100 ML PREMIX 100 MG IV ×3 (05:00→21:56)
[2020-01-04 06:06] LABS: Basophils # 0.1 10^3/uL (0.0-0.1); Basophils % 0.6 %; Eosinophils # 0.4 10^3/uL (0.0-0.8); Eosinophils % 3.8 %; Hematocrit 31.4 % (37.0-47.0); Hemoglobin 10.3 g/dL (11.5-15.3); Lymphocytes # 2.2 10^3/uL (0.8-4.8); Lymphocytes % 22.1 %; Mean Corpuscular HGB Conc 32.8 g/dL (30.0-36.0); Mean Corpuscular Hemoglobin 29.7 pg (28.0-34.0); Mean Corpuscular Volume 90.5 fL (81-99); Mean Platelet Volume 11.2 fL (7.4-10.4); Monocytes # 0.6 10^3/uL (0.2-0.9); Neutrophils # 6.52 10^3/uL (1.8-7.7); Neutrophils % 67.1 %; Nucleated Red Blood Cells % 0 %; Platelet Count 279 10^3/cmm (130-400); Red Blood Count 3.47 10^6/uL (4.1-5.3); Red Cell Distribution Width 13.7 % (12.1-15.1); White Blood Count 9.7 10^3/uL (4.0-10.0)
[2020-01-04 06:25] LABS: Glucose Point of Care 120 mg/dL (70-110)
[2020-01-04 06:34] LABS: Anion Gap 14.9 (5-19); Blood Urea Nitrogen 5 mg/dL (6-20); Calcium 7.8 mg/dL (8.5-10.5); Carbon Dioxide 16 mmol/L (22-29); Chloride 112 mmol/L (98-107); Glomerular Filtration Rate 87.2 mL/min (90-130); Glucose 115 mg/dL (65-115); Magnesium 2.2 mg/dL (1.7-2.3); Osmolality Calculated 288 mOsm/kg (285-295); Sodium 140 mmol/L (136-145)
[2020-01-04 06:45] LABS: Lipase 535 U/L (13-60)
[2020-01-04 06:46] LABS: Potassium 2.9 mmol/L (3.5-5.1)
--- NOTE | 2020-01-04 09:25 | PC.SOCIAL ---
IMM Updated Page 2 of IMM updated and given to patient. Initialed, dated, and timed and placed back in chart.
[2020-01-04] MEDS: lidocaine 1% INJ 20 mL 5 ML IV (10:16)
--- NOTE | 2020-01-04 10:31 | PC.NURSE ---
Patient tearful wanting NG tube out states, my throat hurts too much I cannot tolerate it. Dr. Shafer notified, new order received for chloraseptic spray, see MAR for further details.
[2020-01-04] MEDS: phenol oral Spray 177 mL 3 SPRAY MUCOUS MEM ×3 (10:47→14:10)
--- NOTE | 2020-01-04 11:03 | P.PN_ITS ---
Subjective Subjective: Interval history: Patient is still having watery diarrhea. She is asking for food. We have removed the NG tube. Her plan is to start her on clear liquids. Vitals and labs have been reviewed. Vitals/I&O/Wt Last Vital Signs Temp 98.7 F 01/04/20 08:00 Pulse 87 01/04/20 08:00 Resp 18 01/04/20 08:00 BP 117/61 01/04/20 08:00 Pulse Ox 96 01/04/20 08:00 01/03/20 01/04/20 01/04/20 22:59 06:59 14:59 Intake Total 110 / 110 0 / 0 Output Total 450 / 450 550 / 550 Balance -340 / -340 -550 / -550 Weight last 48 hrs Weight 65.771 kg Physical Exam Narrative: EXAM NARRATIVE: EXAM NARRATIVE: Middle-age female currently laying in left lateral position Patient is stating that she wants to sleep as she has not slept well in last 24 hours, She was able to give me above-mentioned detail Complaining of abdominal pain, tender on superficial palpation right lower quadrant area, hypogastric region, no active purulent drainage noted, bowel sound present, epigastric and right upper quadrant area nontender S1, S2 no tachycardia or heart failure signs Unkempt malnourished appearance Lungs clear to auscultation Low extremity no edema gangrene or ulcer No neck rigidity or signs of meningismus Awake alert oriented x3 GCS 15 Data : 01/04/20 05:00 01/04/20 05:00 A&P Assessment and plan (1) Sepsis: Status: Acute (2) Ileus: Status: Acute (3) C. difficile diarrhea: Status: Acute (4) Hypokalemia: Status: Acute (5) Elevated lipase: Status: Acute Additional A&P Information Sepsis 2/[address] abdomen did not reveal any abscess, free air under diaphragm, Chest x-ray not showing new findings Patient is febrile with leukocytosis, has history of recent surgery. Patient is on ceftriaxone and metronidazole for gram-negative anaerobic coverage, continue p.o. vancomycin for C. difficile No signs of UTI, UA reviewed, no signs of meningismus, no atelectasis noted on chest x-ray No wound abscess Ileus Most likely secondary to C. difficile Monitor for worsening with abdominal cramps, constipation, abdominal distention, look for signs of megacolon, NG tube placement to low intermittent suction N.p.o. Hypokalemia secondary to C. difficile diarrhea Potassium repleted, will check magnesium level Elevated lipase level without active signs of pancreatitis on CT abdomen I do suspect high lipase level secondary to multiple antipsychotics and use of anesthetic agents for laparoscopic appendectomy, Full code N.p.o. DVT prophylaxis Lovenox Attestations Medical Necessity Statement*: Patient is to the hospital for management of C. difficile diarrhea and ileus. Coding Level of Care Code Acute Director Of Student Services for [facility] Diagnoses Sepsis A41.9 Ileus K56.7 C. difficile diarrhea A04.72 Hypokalemia E87.6 Elevated lipase R74.8
--- NOTE | 2020-01-04 11:45 | PC.NURSE ---
Dr. Shafer in to see patient, new orders received for NPO except ice chips, NG clamped, NO FURTHER SUCTION, monitor for abdominal distention, patient having loose watery stools, see ORDERS for further details. ICE chips provided to patient.
[2020-01-04 11:52] LABS: Glucose Point of Care 115 mg/dL (70-110)
[2020-01-04] MEDS: acetaminophen 325 mg Tablet 650 MG PO (15:15)
--- NOTE | 2020-01-04 15:18 | PC.NURSE ---
Patient demanding NG tube to be removed, Dr. Shafer notified, new orders received for NG tube removal. NG tube removed at this time, tip intact, tolerated well.
--- NOTE | 2020-01-04 15:23 | PC.NURSE ---
Sitter 1:1 discontinued since NG tube was removed
[2020-01-04 17:08] LABS: Glucose Point of Care 102 mg/dL (70-110)
--- NOTE | 2020-01-04 18:28 | PC.NURSE ---
Dr. Shafer new order to advance diet to clear liquid, tray provided.
[2020-01-04 21:05] LABS: Glucose Point of Care 148 mg/dL (70-110)
[2020-01-05] VITALS (7 sets, daily range): BP systolic 104–123; BP diastolic 55–74; PULSE 70–89; RESP 18; TEMP 36.8–37.2; O2SAT 95–97
[2020-01-05] MEDS: cefTRIAXone 1,000 MG in sodium chloride 0.9% (plus) 50 ML 100 MG IV (03:23)
[2020-01-05] MEDS: enoxaparin 40 mg/0.4 mL Syringe SUBCUT (03:23)
[2020-01-05] MEDS: acetaminophen 325 mg Tablet 650 MG PO (03:31)
[2020-01-05] MEDS: metroNIDAZOLE IV 500 MG/100 ML PREMIX 100 MG IV (06:03)
[2020-01-05 06:50] LABS: Glucose Point of Care 105 mg/dL (70-110)
[2020-01-05 08:40] LABS: Basophils # 0.1 10^3/uL (0.0-0.1); Basophils % 0.8 %; Eosinophils # 0.7 10^3/uL (0.0-0.8); Eosinophils % 8.9 %; Lymphocytes # 2.3 10^3/uL (0.8-4.8); Mean Corpuscular HGB Conc 33.3 g/dL (30.0-36.0); Mean Corpuscular Hemoglobin 29.9 pg (28.0-34.0); Mean Corpuscular Volume 89.7 fL (81-99); Mean Platelet Volume 10.2 fL (7.4-10.4); Monocytes # 0.5 10^3/uL (0.2-0.9); Monocytes % 6.2 %; Neutrophils % 53.6 %; Nucleated Red Blood Cells % 0 %; Platelet Count 338 10^3/cmm (130-400); Red Blood Count 3.68 10^6/uL (4.1-5.3); Red Cell Distribution Width 13.9 % (12.1-15.1); White Blood Count 7.6 10^3/uL (4.0-10.0)
[2020-01-05 08:57] LABS: Alanine Aminotransferase 14 U/L (0-33); Albumin Level 3.2 g/dL (3.5-5.2); Alkaline Phosphatase 54 IU/L (35-105); Anion Gap 12.4 (5-19); Aspartate Amino Transferase 14 U/L (0-32); Blood Urea Nitrogen 4 mg/dL (6-20); Calcium 9.2 mg/dL (8.5-10.5); Carbon Dioxide 20 mmol/L (22-29); Chloride 112 mmol/L (98-107); Globulin 2.9 g/dL (1.3-4.6); Glomerular Filtration Rate 87.2 mL/min (90-130); Glucose 160 mg/dL (65-115); Osmolality Calculated 292 mOsm/kg (285-295); Potassium 3.4 mmol/L (3.5-5.1); Sodium 141 mmol/L (136-145); Total Bilirubin 0.2 mg/dL (0.15-1.2); Total Protein 6.1 g/dL (6.6-8.7)
--- NOTE | 2020-01-05 10:26 | P.DS_ITS ---
Discharge Providers Date of Admission: 01/04/20 01:27 Date of Discharge: January 05, 2020 Attending Provider at Admission: Sabrina Barney MD Attending Provider at Discharge: James Shafer MD Primary Care Provider: KANDIS Roman Diagnoses at Discharge Discharge Diagnosis (1) Sepsis: Status: Resolved (2) Ileus: Status: Resolved (3) C. difficile diarrhea: Status: Resolved (4) Hypokalemia: Status: Resolved (5) Elevated lipase: Status: Resolved Reason for Visit Reason for Visit: ABD PAIN Hospital Course Hospital Course: 54 year old female past medical history of COPD ,DM2, hypertension , recent laparoscopic appendectomy.she was recently discharged after laparoscopic appendectomy and treatment of C. difficile on Friday came in for worsening abdominal pain. At the time of admission she was complaining of feeling extremely lethargic and tired, temperature 102 at home, she did not experience any nausea, vomiting but she has been experiencing dry heaves with abdominal cramps and pain. Abdominal pain was mostly located around surgical site, she noticed mild bleeding around surgical site however no purulent drainage noticed. She has not noticed any productive cough, shortness of breath, chest pain or dysuria. CT abdomen and pelvis done during that admission: Was negative for focal fluid collection to suggest abscess.showed prominent fluid in the small bowel and colon suggestive of an ileus and Diverticulosis without diverticulitis. She was managed for ileus. She was kept n.p.o., G-tube to suction. She was kept on antibiotics. She was also started on C. difficile antibiotic management. Vancomycin 125 mg p.o. 4 times daily. At the time of the she was tolerating diet. He was no longer complaining of any nausea vomiting or abdominal pain. She has been discharged on metronidazole as well as ciprofloxacin as well as p.o. vancomycin. Blood cultures were negative. Physical Exam Const: COMMON NORMALS: patient oriented x3 HENMT: COMMON NORMALS: normocephalic, atraumatic, hearing grossly normal bilaterally and external ears normal HEAD & SCALP: normocephalic and atraumatic EXTERNAL EAR: Yes external ears normal Eye: COMMON NORMALS: no scleral icterus GENERAL EYE: appearance normal, both eyes and all related structures Chest: COMMONS NORMALS: normal inspection of the chest and normal palpation of entire chest wall CHEST: Yes Symmetrical chest wall rise Resp: COMMON NORMALS: normal respiratory effort, No retractions, No use of accessory muscles and clear to auscultation bilaterally EFFORT & INSPECTION: Yes symmetric chest movement AUSCULTATION: clear to auscultation bilaterally Cardio: COMMON NORMALS: regular rate, regular rhythm, S1 normal heart sound present, S2 normal heart sound present, No gallops present (Cardio), No murmurs present (Cardio), No rub (Cardio) and Peripheral pulses 2+ throughout RATE: regular rate RHYTHM: regular rhythm HEART SOUNDS: S1 normal heart sound present and S2 normal heart sound present PERIPHERAL PULSES: Peripheral pulses 2+ throughout GI: COMMON NORMALS: Normal to inspection, nondistended, normoactive bowel sounds present, Soft to palpation, non-tender, No hepatosplenomegaly present and no masses AUSCULTATION: Yes normoactive bowel sounds PALPATION: Yes Soft to palpation and Yes No hepatosplenomegaly present RECTAL EXAM: deferred : COMMON NORMALS: Yes no CVA tenderness BLADDER/KIDNEY EXAM: Yes no CVA tenderness Back/Pelvis: COMMON NORMALS: no CVA tenderness Extremity: COMMON NORMALS: no clubbing, cyanosis or edema and no pedal edema Neuro: COMMON NORMALS: patient oriented x3 Discharge Data Data Completed and Pending: Completed Studies During Hospitalization Category Date Time Status CT abdomen pelvis w con* [id number] Urge nt Cat Scan 01/03/20 22:08 Completed XR chest 1V tank ble [id number] Routine Exams 01/04/20 03:05 Completed XR chest 1V tank ble [id number] Stat Exams 01/03/20 21:16 Completed Labs from last 24 hours 01/05/20 01/05/20 01/05/20 08:30 08:30 06:35 WBC 7.6 RBC 3.68 L Hgb 11.0 L Hct 33.0 L MCV 89.7 MCH 29.9 MCHC 33.3 RDW 13.9 Plt Count 338 MPV 10.2 Neut % (Auto) 53.6 Lymph % (Auto) 30.0 Treasure % (Auto) 6.2 Eos % (Auto) 8.9 Baso % (Auto) 0.8 Neut # (Auto) 4.10 Lymph # (Auto) 2.3 Treasure # (Auto) 0.5 Eos # (Auto) 0.7 Baso # (Auto) 0.1 Nucleated RBC % (a uto) 0 Nucleated RBCs # 0.0 Sodium 141 Potassium 3.4 L Chloride 112 H Carbon Dioxide 20 L Anion Gap 12.4 BUN 4 L Creatinine 0.7 GFR Calculation 87.2 L Glucose 160 H POC Glucose 105 Calculated Osmolal ity 292 Calcium 9.2 Total Bilirubin 0.2 AST 14 ALT 14 Alkaline Phosphata se 54 Total Protein 6.1 L Albumin 3.2 L Globulin 2.9 01/04/20 01/04/20 01/04/20 20:51 16:52 10:44 WBC RBC Hgb Hct MCV MCH MCHC RDW Plt Count MPV Neut % (Auto) Lymph % (Auto) Treasure % (Auto) Eos % (Auto) Baso % (Auto) Neut # (Auto) Lymph # (Auto) Treasure # (Auto) Eos # (Auto) Baso # (Auto) Nucleated RBC % (a uto) Nucleated RBCs # Sodium Potassium Chloride Carbon Dioxide Anion Gap BUN Creatinine GFR Calculation Glucose POC Glucose 148 102 115 Calculated Osmolal ity Calcium Total Bilirubin AST ALT Alkaline Phosphata se Total Protein Albumin Globulin Vitals: Last Vital Signs Temp 98.2 F 01/05/20 07:59 Pulse 75 01/05/20 07:59 Resp 18 01/05/20 07:59 BP 110/67 01/05/20 07:59 Pulse Ox 97 01/05/20 07:59 Discharge Plan Discharge Patient Disposition: Home Condition: Stable Prescriptions: Continued tizanidine 2 mg tablet 2 mg PO BID Qty: 60 RF: 2 Spiriva with HandiHaler 18 mcg capsule, w/inhalation device 1 cap INHALATION DAILY Qty: 30 RF: 2 sucralfate [Carafate] 1 gram tablet 1 gm PO BID Qty: 60 RF: 2 Trulicity 0.75 mg/0.5 mL pen injector 0.75 mg SUBCUT Q7D Qty: 2 RF: 2 Symbicort 160-4.5 mcg/actuation HFA aerosol inhaler 2 puff INHALATION Q12H Qty: 10.2 RF: 2 lisinopril 5 mg tablet 5 mg PO DAILY Qty: 30 RF: 2 zonisamide 50 mg capsule 50 mg PO BID Qty: 60 RF: 2 hydrocodone-acetaminophen [[place]] 5-325 mg tablet 1 tab PO Q6H PRN (Reason: pain) Qty: 28 RF: 0 ciprofloxacin HCl [Cipro] 500 mg tablet 500 mg PO BID Qty: 14 RF: 0 metronidazole [Flagyl] 500 mg tablet 500 mg PO Q8H 7 Days Qty: 21 RF: 0 vancomycin 1,000 mg Recon Soln 125 mg PO QID 14 Days RF: 0 albuterol sulfate [ProAir HFA] 90 mcg/actuation Hfa Aerosol Inhaler 2 puff INHALATION Q6H PRN (Reason: Shortness Of Breath) RF: 0 fenofibrate nanocrystallized 145 mg tablet 145 mg PO DAILY RF: 0 benztropine 1 mg tablet 1 mg PO BEDTIME RF: 0 omeprazole 20 mg capsule,delayed release(DR/EC) 20 mg PO DAILY RF: 0 mirtazapine [Remeron] 15 mg tablet 15 mg PO BEDTIME RF: 0 Cbd Oil See Rx Instructions .ROUTE .COMPLEX RF: 0 aspirin [Adult Aspirin Regimen] 81 mg tablet,delayed release (DR/EC) 81 mg PO DAILY Qty: 30 RF: 0 naproxen 500 mg tablet 500 mg PO BID Qty: 20 RF: 0 Zoloft 100 mg Tablet 100 mg PO DAILY RF: 0 gabapentin 300 mg Capsule 300 mg PO BEDTIME RF: 0 Discontinued magnesium oxide 400 mg magnesium tablet 400 mg PO BID Qty: 60 RF: 2 Discharge Orders: Discharge Order (Routine); Ordered 01/05/20 Ordered By: James Shafer Referrals: Lucila Thomas, ROGERC [Primary Care Provider] - (Please call patient at home with a hospital follow up appointment in 7-10 days. Faxed information to clinic) Discharge Diet: Usual diet Discharge Activity: Resume usual activity Discharge Attestations Time Spent in Discharge Care*: greater than 30 min Specific Discharge Activities: Specific discharge activities: educating patient, educating and/or supporting family/caregiver, discussing with watch case polisher/social workers/dc planners, documenting/other paperwork and evaluating patient/reviewing data Status at Discharge: Cognitive status at discharge: cognitively intact , Behavioral status at discharge: cooperative , Functional status at discharge: independent ambulation Overall status at discharge: patient is back to base line Quality Metrics Clinical Quality Measures During this hospital stay, did patient experience: None Coding Level of Care Code Acute Licensed Mental Health Counselor for [facility] Fwd Diagnoses Sepsis A41.9 Ileus K56.7 C. difficile diarrhea A04.72 Hypokalemia E87.6 Elevated lipase R74.8
[2020-01-05 11:00] LABS: Glucose Point of Care 97 mg/dL (70-110)
[2020-01-05 16:44] LABS: Glucose Point of Care 115 mg/dL (70-110)
== END 2020-01-05 21:04 | disposition home or self-care (01) | DRG 872 ==
LOC: ER 01-04 → MEDSURG 01-04 00:34
PROVIDERS: Emergency Medicine; Admitting Provider Internal Medicine; PCP Nurse Practitioner; Visit Provider Internal Medicine
DX: A41.9 Sepsis, unspecified organism (principal); K56.7 Ileus, unspecified; A04.72 Enterocolitis due to Clostridium difficile, not specified as recurrent; F33.2 Major depressive disorder, recurrent severe without psychotic features; F12.20 Cannabis dependence, uncomplicated; Z98.1 Arthrodesis status; J44.9 Chronic obstructive pulmonary disease, unspecified; E11.9 Type 2 diabetes mellitus without complications; K21.9 Gastro-esophageal reflux disease without esophagitis; F17.210 Nicotine dependence, cigarettes, uncomplicated; E87.6 Hypokalemia; I10 Essential (primary) hypertension; Z98.890 Other specified postprocedural states; Z79.84 Long term (current) use of oral hypoglycemic drugs; Z79.891 Long term (current) use of opiate analgesic; Z79.51 Long term (current) use of inhaled steroids; F25.1 Schizoaffective disorder, depressive type; K57.90 Diverticulosis of intestine, part unspecified, without perforation or abscess without bleeding
CPT/HCPCS: 12345; 36415; 36416; 36600; 51702; 71045; 74177; 80048; 80053; 80306; 81001; 81003; 82803; 82962; 83036; 83540; 83550; 83605; 83690; 83735; 84145; 84443; 84478; 85025; 87040; 87426; 87493; 87641; 88304; 94640; 96361; 96365; 96366; 96372; 96375; 99283; C9113; G0378; J0131; J0696; J1170; J1200; J1650; J1815; J2060; J2405; J2543; J2704; J2710; J2765; J3370; J3475; J3480; J3490; J7030; J7050; J7626; Q9967; S0030

== ENCOUNTER → 2020-01-13 11:30 | Outpatient (BNVA) | payer MEDICARE, MEDICAID, SELFPAY | PROVIDERS: PCP Nurse Practitioner; Visit Provider Nurse Practitioner | DX: E11.59 Type 2 diabetes mellitus with other circulatory complications (principal); E61.1 Iron deficiency; A04.72 Enterocolitis due to Clostridium difficile, not specified as recurrent | CPT/HCPCS: 80048; 83690; 84146 ==

== ENCOUNTER → 2020-01-25 07:54 | Outpatient (BNVA) | payer MEDICARE, MEDICAID, SELFPAY | PROVIDERS: PCP Nurse Practitioner; Visit Provider Nurse Practitioner | DX: F33.2 Major depressive disorder, recurrent severe without psychotic features (principal); F25.1 Schizoaffective disorder, depressive type; F12.20 Cannabis dependence, uncomplicated | CPT/HCPCS: 99214 ==

== ENCOUNTER → 2020-02-01 14:39 | Outpatient (BNVA) | payer MEDICARE, SELFPAY | PROVIDERS: PCP Nurse Practitioner; Visit Provider Nurse Practitioner Family | DX: K92.1 Melena (principal) | CPT/HCPCS: 81000 ==

== ENCOUNTER → 2020-02-07 14:13 | Outpatient (BNVA) | payer MEDICARE, SELFPAY | PROVIDERS: PCP Nurse Practitioner; Visit Provider Nurse Practitioner | DX: E11.69 Type 2 diabetes mellitus with other specified complication (principal); K86.9 Disease of pancreas, unspecified; K92.1 Melena | CPT/HCPCS: 80053; 82270; 83690; 85025 ==

== ENCOUNTER 2020-02-11 08:31 | Outpatient (CLI) | payer MEDICARE, MEDICAID, SELFPAY ==
[2020-02-11] MEDS: iohexol 300 mg/mL 50 mL Btl PO (09:03)
--- NOTE | 2020-02-11 10:00 | CT_ITS ---
WS: [id number] Exam: CT abdomen pelvis wo con [id number] Date/Time of Exam: 02/11/2020 8:37 AM Reason For Exam: pain recent appy <8 weeks ago DLP: 1078.[address] scans at [facility] use at least one of these dose optimization techniques: automat ed exposure control; mA and/or kV adjustment per patient size (includes targeted exams where dose is matched to clinical indication); or iterative reconstruction. Comparison made with contrast CT scan performed 01/03/2020. Lower lung zones are clear. The liver, gallbladder, spleen, stomach and pancreas appear normal. The a bdominal aorta is normal in caliber. 5 mm nonobstructing stone in the right kidney. Normal left kidne y. Normal adrenal glands. No free air. No lymphadenopathy. Small bowel loops are not dilated. Surgica l clips in the right lower quadrant secondary to prior appendectomy. No sign of the abscess. No lymph adenopathy or free air. Mild sigmoid diverticulosis. No mass or adenopathy in the pelvis. Normal-appe aring urinary bladder. No destructive bone lesions are seen. No significant abdominal wall defect. CT/CT abdomen pelvis wo con [id number] IMPRESSION: 1. No indication of mass, lymphadenopathy or abscess. 2. Sigmoid diverticulosis. Status post appendectomy. 3. 5 mm nonobstructing calculus in the right kidney.
== END 2020-02-11 08:32 | disposition home or self-care (01) ==
LOC: RADWPI 08:35
PROVIDERS: PCP Nurse Practitioner; Visit Provider Nurse Practitioner
DX: R10.9 Unspecified abdominal pain (principal); K57.30 Diverticulosis of large intestine without perforation or abscess without bleeding; N20.0 Calculus of kidney
CPT/HCPCS: 74176; 80053; 85025; Q9967

== ENCOUNTER → 2020-02-19 11:35 | Outpatient (BNVA) | payer MEDICARE, SELFPAY | PROVIDERS: PCP Nurse Practitioner; Visit Provider Surgery | DX: Z11.59 Encounter for screening for other viral diseases (principal) | CPT/HCPCS: 87635 ==

== ENCOUNTER 2020-02-20 18:31 | Emergency (ER) | payer MEDICARE, MEDICAID, SELFPAY ==
[2020-02-20] VITALS (7 sets, daily range): BP systolic 100–113; BP diastolic 48–74; PULSE 78–99; RESP 14–18; TEMP 36.9; O2SAT 95–100; BMI 27.8
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
--- NOTE | 2020-02-20 19:07 | CTR_ITS ---
PROCEDURE INFORMATION: Exam: CT Abdomen And Pelvis Without Contrast Exam date and time: 02/20/2020 7:15 PM Age: 54 years old Clinical indication: Abdominal pain; Right; Prior surgery; Surgery date: 1-6 months; Surgery type: Appy, hyst; Patient HX: C/O worsening R flank pain w known R stone; Additional info: Right flank pain TECHNIQUE: Imaging protocol: Computed tomography of the abdomen and pelvis without contrast. Radiation optimization: All CT scans at this facility use at least one of these dose optimization techniques: automated exposure control; mA and/or kV adjustment per patient size (includes targeted exams where dose is matched to clinical indication); or iterative reconstruction. COMPARISON: CT abdomen pelvis wo con [id number] 02/11/2020 10:00 AM RADIATION DOSE METRICS: Total DLP (mGy-cm): 1169.89 FINDINGS: Liver: The liver is slightly fatty and is upper limits of normal in size. Gallbladder and bile ducts: The gallbladder is contracted. Pancreas: Normal. No ductal dilation. Spleen: Normal. No splenomegaly. Adrenal glands: Normal. No mass. Kidneys and ureters: Small 3 mm nonobstructing right intrarenal calculus. No perinephric stranding. Stomach and bowel: The stomach is filled with food. Chronic postop changes at the cecal tip most likely from prior appendectomy . There is a 1.5 cm rounded locule of slightly inflamed mesentery near the cecal tip which is new suggesting of localized fat torsion or fatty necrosis. This should be a self-limiting process. Appendix: Resected. Intraperitoneal space: Unremarkable. No free air. No significant fluid collection. Vasculature: Unremarkable. No abdominal aortic aneurysm. Lymph nodes: Unremarkable. No enlarged lymph nodes. Urinary bladder: Unremarkable as visualized. Reproductive: The uterus is absent and the ovaries are not seen. Bones/joints: Unremarkable. No acute fracture. Soft tissues: Small inguinal hernias consist of noninflamed fatty tissue. Postop changes in the anterior abdominal wall. Other findings: No abscess or abnormal fluid collection. CT/CT kidney stone [id number] IMPRESSION: 1. New, localized fat necrosis or fatty torsion in the right lower quadrant near the operative bed. No bowel inflammation or abscess. 2. Hepatic steatosis. 3. Nonobstructing right intrarenal calculus. 4. Other chronic and incidental findings as described Radiation Dose CTDIVOL = (mGy): DLP = 1169.89 (mGy-cm)
[2020-02-20 20:29] LABS: Alanine Aminotransferase 13 U/L (0-33); Albumin Level 4.3 g/dL (3.5-5.2); Alkaline Phosphatase 77 IU/L (35-105); Anion Gap 13.8 (5-19); Aspartate Amino Transferase 15 U/L (0-32); Blood Urea Nitrogen 19 mg/dL (6-20); Calcium 10.3 mg/dL (8.5-10.5); Carbon Dioxide 24 mmol/L (22-29); Chloride 108 mmol/L (98-107); Globulin 2.4 g/dL (1.3-4.6); Glomerular Filtration Rate 57.8 mL/min (90-130); Glucose 141 mg/dL (65-115); Lipase 75 U/L (13-60); Osmolality Calculated 299 mOsm/kg (285-295); Potassium 3.8 mmol/L (3.5-5.1); Sodium 142 mmol/L (136-145); Total Bilirubin 0.2 mg/dL (0.15-1.2); Total Protein 6.7 g/dL (6.6-8.7)
[2020-02-20 20:35] LABS: Basophils # 0.1 10^3/uL (0.0-0.1); Basophils % 1.4 %; Eosinophils # 0.3 10^3/uL (0.0-0.8); Eosinophils % 3.2 %; Hematocrit 40.8 % (37.0-47.0); Hemoglobin 13.2 g/dL (11.5-15.3); Lymphocytes # 4.8 10^3/uL (0.8-4.8); Lymphocytes % 48.4 %; Mean Corpuscular HGB Conc 32.4 g/dL (30.0-36.0); Mean Corpuscular Hemoglobin 30.1 pg (28.0-34.0); Mean Corpuscular Volume 92.9 fL (81-99); Mean Platelet Volume 11.3 fL (7.4-10.4); Monocytes # 0.7 10^3/uL (0.2-0.9); Monocytes % 6.6 %; Neutrophils # 4.02 10^3/uL (1.8-7.7); Neutrophils % 40.1 %; Nucleated Red Blood Cells % 0 %; Platelet Count 332 10^3/cmm (130-400); Red Blood Count 4.39 10^6/uL (4.1-5.3); Red Cell Distribution Width 13.2 % (12.1-15.1)
[2020-02-20 20:42] LABS: Bilirubin Urine Neg (Negative); Blood Urine Neg (Negative); Glucose Urine UA 4+ (Normal); Ketones Urine Negative (Negative); Leukocyte Esterase Urine 1+ (Negative); Nitrate Urine Negative (Negative); Protein Urine Neg (Negative); Urine Appearance SL Hazy (CLEAR); Urine Color Yellow (Yellow); Urobilinogen Urine Norm (Negative); pH Urine 5 (5-7)
[2020-02-20 20:44] LABS: Add Urine Culture? Yes; Bacteria Urine TRACE /hpf; Mucus Urine TRACE /hpf; RBC Urine 0-4 /hpf (0-2)
[2020-02-20] MEDS: fentaNYL 50 mcg/mL INJ 2mL IVP (20:49)
[2020-02-20] MEDS: ciprofloxacin 500 mg Tablet PO (21:49)
[2020-02-20] MEDS: metroNIDAZOLE 500 MG Tablet PO (21:49)
--- NOTE | 2020-02-21 00:50 | PC.NURSE ---
Pt is walking around waiting area and entrance of hospital. No acute distress noted. Denies any needs at this time.
--- NOTE | 2020-02-21 02:20 | PC.NURSE ---
Pt continues to wait for ride. [facility] Pt is alert, oriented, no acute distress noted. No needs verbalized.
--- NOTE | 2020-02-21 02:45 | PC.NURSE ---
Pt provided with sandwich, snack, and drink at this time. Denies any further needs. Awaiting transportation in waiting area at this time. No acute distress noted.
--- NOTE | 2020-02-21 03:30 | PC.NURSE ---
Pt resting in waiting room. Denies any needs at this time.
--- NOTE | 2020-02-21 04:05 | PC.NURSE ---
Pt transport arrived and pt left in stable condition at this time.
== END 2020-02-21 04:08 | disposition home or self-care (01) ==
PROVIDERS: Emergency Provider Physician Assistant; PCP Nurse Practitioner
DX: G89.18 Other acute postprocedural pain (principal); R10.31 Right lower quadrant pain; Z79.82 Long term (current) use of aspirin; J44.9 Chronic obstructive pulmonary disease, unspecified; E11.9 Type 2 diabetes mellitus without complications; F17.210 Nicotine dependence, cigarettes, uncomplicated
CPT/HCPCS: 12345; 74176; 80053; 81001; 83690; 85025; 87086; 96374; 96375; 99283; J3010

== ENCOUNTER 2020-02-24 08:09 | Day surgery (SDC) | payer MEDICARE, SELFPAY ==
[2020-02-22 13:17] VITALS: BMI 26.6
[2020-02-24 08:49] VITALS: BP 152/90; PULSE 84; RESP 18; TEMP 37.1; O2SAT 99
--- NOTE | 2020-02-24 09:01 | W.PM.OPSUD ---
Surgery/Procedure H&P Update DATE OF PROCEDURE: February 24, 2020 DATE H&P PERFORMED: 02/14/20 H&P UPDATE INFORMATION: I have reviewed H&P completed within last 30 days, I have examined patient prior to procedure and No changes to prior documentation PREOP DIAGNOSIS: melena/screening PLANNED PROCEDURE: Operation Date: 02/24/20 09:30 Proposed Procedures p [id number] egd/colon K92.1 melena(Not Applicable) - Domenico Lui MD s Colonoscopy(Not Applicable) - Domenico Lui MD
[2020-02-24] MEDS: sodium chloride 0.9% 1,000 ML 30 ML IV (09:02)
[2020-02-24 09:08] LABS: Glucose Point of Care 142 mg/dL (70-110)
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
[2020-02-24 10:17] VITALS: BP 134/68; PULSE 78; RESP 18; TEMP 36.4; O2SAT 99
[2020-02-24 10:37] VITALS: BP 143/72; PULSE 62; RESP 22; O2SAT 100
--- NOTE | 2020-02-24 20:14 | ANE.PACU2 ---
Inpatient post-anesthesia follow up: Airway intact: Yes Vital signs: Temperature 97.5 F Pulse Rate 62 Respiratory Rate 22 Blood Pressure 143/72 Pulse Oximetry 100 Oxygen Delivery Me thod Room Air Oxygen Flow Rate Fraction of Inspir ed Oxygen Hydration adequate: Yes Nausea and vomiting: No Pain level: 3 Mental status: Baseline
== END 2020-02-24 10:52 | disposition home or self-care (01) ==
PROVIDERS: PCP Nurse Practitioner; Visit Provider Surgery
PROC: 0DJ08ZZ Inspection of Upper Intestinal Tract, Via Natural or Artificial Opening Endoscopic (ICD-10-PCS; CPT 43235; principal; 2020-02-24 09:30)
PROC: 0DJD8ZZ Inspection of Lower Intestinal Tract, Via Natural or Artificial Opening Endoscopic (ICD-10-PCS; CPT 45378; 2020-02-24 09:30)
DX: K92.1 Melena (principal); K57.30 Diverticulosis of large intestine without perforation or abscess without bleeding; E11.9 Type 2 diabetes mellitus without complications; I10 Essential (primary) hypertension; E78.5 Hyperlipidemia, unspecified; J44.9 Chronic obstructive pulmonary disease, unspecified; K21.00 Gastro-esophageal reflux disease with esophagitis, without bleeding; Z86.010 Personal history of colon polyps
CPT/HCPCS: 12345; 36416; 43235; 45378; 82962; J2704; J7030

== ENCOUNTER → 2020-02-28 08:06 | Outpatient (BNVA) | payer MEDICARE, MEDICAID, SELFPAY | PROVIDERS: PCP Nurse Practitioner; Visit Provider Nurse Practitioner | DX: F33.2 Major depressive disorder, recurrent severe without psychotic features (principal); F12.20 Cannabis dependence, uncomplicated; F25.1 Schizoaffective disorder, depressive type | CPT/HCPCS: 99214 ==

== ENCOUNTER → 2020-03-01 14:29 | Outpatient (BNVA) | payer MEDICARE, MEDICAID, SELFPAY | PROVIDERS: PCP Nurse Practitioner; Visit Provider Nurse Practitioner Family | DX: M25.532 Pain in left wrist (principal); M25.432 Effusion, left wrist; M79.642 Pain in left hand | CPT/HCPCS: 73110 ==

== ENCOUNTER 2020-03-17 22:02 | Emergency (ER) | payer MEDICARE, MEDICAID, SELFPAY ==
[2020-03-17 22:03] VITALS: BP 128/81; PULSE 84; RESP 18; TEMP 36.6; O2SAT 98; BMI 28.6
[2020-03-17 23:25] VITALS: BP 120/72; PULSE 78; RESP 18; O2SAT 97
[2020-03-18] MEDS: ketorolac 30 mg/mL INJ IVP (00:14)
[2020-03-18] MEDS: ondansetron 2 mg/ML SDV 2 mL 4 MG IVP (00:14)
[2020-03-18] MEDS: sodium chloride 0.9% 1,000 ML 999 ML IV (00:14)
[2020-03-18 00:30] VITALS: BP 95/42; PULSE 74; RESP 18; O2SAT 97
--- NOTE | 2020-03-18 00:36 | CTR_ITS ---
PROCEDURE INFORMATION: Exam: CT Abdomen And Pelvis With Contrast Exam date and time: 03/18/2020 1:57 AM Age: 54 years old Clinical indication: Abdominal pain; Generalized; Prior surgery; Surgery type: Appy. Hysterectomy. ; Patient HX: Diffuse abd pain with n/v. Recent history of c diff. ; Additional info: Abd pain, vomiting TECHNIQUE: Imaging protocol: Computed tomography of the abdomen and pelvis with intravenous contrast. Radiation optimization: All CT scans at this facility use at least one of these dose optimization techniques: automated exposure control; mA and/or kV adjustment per patient size (includes targeted exams where dose is matched to clinical indication); or iterative reconstruction. Contrast material: OMNI 300; Contrast volume: 95 ml; Contrast route: INTRAVENOUS (IV); COMPARISON: CT kidney stone [id number] 02/20/2020 7:34 PM RADIATION DOSE METRICS: Total DLP (mGy-cm): 739.66 FINDINGS: Lungs: Continued minimal stranding in the inferior lingula. Interval minimal dependent atelectasis in the left lower lobe. Liver: Unremarkable liver. Gallbladder and bile ducts: Still no calcified gallstones or biliary ductal dilatation. Pancreas: Continued slight fatty infiltration of the inferior pancreatic head. No acute pancreatic disease or interval ductal dilatation. Spleen: Still no splenomegaly. Adrenal glands: Still no adrenal mass. Kidneys and ureters: Continued small stone in the upper right kidney. Still no hydronephrosis. Stomach and bowel: Continued [id number] sigmoid and mild descending diverticulosis. Still no obstruction. No apparent wall thickening. Appendix: Continued surgical clips in the right lower quadrant probably related to an appendectomy. Intraperitoneal space: Still no free air. Vasculature: Continued atherosclerosis. Still no aortic aneurysm. Lymph nodes: No interval enlarged nodes. Urinary bladder: Still unremarkable as visualized. Reproductive: Hysterectomy again evident. Bones/joints: Old compression fractures again evident. Continued slight degeneration of a few discs. Old left rib fracture again evident. Soft tissues: Small right and developing left inguinal hernias again evident. Continued mild scar in the infraumbilical abdominal wall. CT/CT abdomen pelvis w con* [id number] IMPRESSION: No acute abdominal findings. Small right renal stone still present. Other chronic findings detailed above. Radiation Dose CTDIVOL = (mGy): DLP = 739.66 (mGy-cm)
--- NOTE | 2020-03-18 00:36 | XRR_ITS ---
PROCEDURE INFORMATION: Exam: XR Chest, 1 View Exam date and time: 03/18/2020 1:42 AM Age: 54 years old Clinical indication: Cough TECHNIQUE: Imaging protocol: XR of the chest Views: 1 view. COMPARISON: CR XR chest 1V portable [id number] 01/04/2020 4:46 AM FINDINGS: Tubes, catheters and devices: Interval disappearance of the enteric tube. Lungs: Interval clearance of haziness from the left lateral lung base; small calcified granuloma or focal scar in the lateral left lung base not excluded.. Interval increase in the lung volumes. No consolidation. Pleural space: Still no pneumothorax. No suggestion of pleural fluid. Heart/Mediastinum: Still no cardiomegaly. Bones/joints: Screw and plate fixation device again evident in the cervical spine. Old left rib fractures still present. No visible acute bony disease. XR/XR chest 1V portable [id number] IMPRESSION: No acute findings. Interval changes detailed above.
[2020-03-18 00:40] LABS: Basophils # 0.1 10^3/uL (0.0-0.1); Basophils % 1.4 %; Eosinophils # 0.3 10^3/uL (0.0-0.8); Eosinophils % 2.5 %; Hematocrit 37.6 % (37.0-47.0); Hemoglobin 12.4 g/dL (11.5-15.3); Lymphocytes # 4.6 10^3/uL (0.8-4.8); Lymphocytes % 44.4 %; Mean Corpuscular Hemoglobin 30.3 pg (28.0-34.0); Mean Corpuscular Volume 91.9 fL (81-99); Mean Platelet Volume 10.7 fL (7.4-10.4); Monocytes # 0.8 10^3/uL (0.2-0.9); Monocytes % 7.4 %; Neutrophils % 43.9 %; Nucleated Red Blood Cells % 0 %; Platelet Count 361 10^3/cmm (130-400); Red Blood Count 4.09 10^6/uL (4.1-5.3); White Blood Count 10.3 10^3/uL (4.0-10.0)
[2020-03-18 00:55] LABS: Alanine Aminotransferase 19 U/L (0-33); Albumin Level 4.2 g/dL (3.5-5.2); Alkaline Phosphatase 81 IU/L (35-105); Anion Gap 13.6 (5-19); Aspartate Amino Transferase 19 U/L (0-32); Blood Urea Nitrogen 10 mg/dL (6-20); Calcium 9.3 mg/dL (8.5-10.5); Carbon Dioxide 25 mmol/L (22-29); Chloride 109 mmol/L (98-107); Globulin 2.4 g/dL (1.3-4.6); Glomerular Filtration Rate 65.2 mL/min (90-130); Glucose 116 mg/dL (65-115); Lipase 34 U/L (13-60); Osmolality Calculated 298 mOsm/kg (285-295); Potassium 3.6 mmol/L (3.5-5.1); Sodium 144 mmol/L (136-145); Total Bilirubin 0.2 mg/dL (0.15-1.2); Total Protein 6.6 g/dL (6.6-8.7)
[2020-03-18 01:46] LABS: Bilirubin Urine Neg (Negative); Blood Urine Neg (Negative); Glucose Urine UA 4+ (Normal); Ketones Urine Negative (Negative); Nitrate Urine Negative (Negative); Protein Urine Neg (Negative); Specific Gravity, Urine 1.015 (1.005-1.030); Sulfosalicylic Acid Urine Negative (Negative); Urine Appearance Cloudy (CLEAR); Urine Color Yellow (Yellow); Urobilinogen Urine Norm (Negative); pH Urine 8 (5-7)
[2020-03-18 01:47] LABS: Add Urine Microscopic? YES; Leukocyte Esterase Urine 1+ (Negative)
[2020-03-18 01:58] LABS: RBC Urine 0-4 /hpf (0-2)
[2020-03-18] MEDS: iohexol 300 mg/mL 100 mL Btl IV (01:58)
[2020-03-18 01:59] LABS: Add Urine Culture? No; Bacteria Urine 1+ /hpf; Squamous Epithelial Cell Urine 15-25 /hpf (0-5); Transitional Epi Cells Urine 0-4 /hpf
[2020-03-18 02:08] VITALS: BP 104/60; PULSE 84; RESP 18; O2SAT 97
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
[2020-03-18 03:00] VITALS: BP 104/64; PULSE 78; RESP 18; O2SAT 97
[2020-03-18 03:56] VITALS: BP 98/62; PULSE 88; RESP 18; TEMP 36.6; O2SAT 97
[2020-03-19 17:47] LABS: Quest SARS-CoV-2 RNA NOT DETECTED (NOT DETECTED)
--- NOTE | 2020-03-20 08:54 | PC.NURSE ---
pt called and informed of covid results
== END 2020-03-18 03:58 | disposition home or self-care (01) ==
PROVIDERS: Emergency Provider Emergency Medicine; PCP Nurse Practitioner
DX: K52.9 Noninfective gastroenteritis and colitis, unspecified (principal); Z79.82 Long term (current) use of aspirin; J44.9 Chronic obstructive pulmonary disease, unspecified; E11.9 Type 2 diabetes mellitus without complications; F17.210 Nicotine dependence, cigarettes, uncomplicated
CPT/HCPCS: 12345; 36415; 71045; 74177; 80053; 81001; 83690; 85025; 86140; 87635; 96361; 96374; 96375; 99283; J1885; J2405; J7030; Q9967

== ENCOUNTER → 2020-03-23 08:36 | Outpatient (BNVA) | payer MEDICARE, MEDICAID, SELFPAY | PROVIDERS: PCP Nurse Practitioner; Visit Provider Nurse Practitioner | DX: F33.2 Major depressive disorder, recurrent severe without psychotic features (principal); F12.20 Cannabis dependence, uncomplicated; F25.1 Schizoaffective disorder, depressive type | CPT/HCPCS: 99214 ==

== ENCOUNTER 2020-03-27 13:28 | Emergency (ER) | payer MEDICARE, MEDICAID, SELFPAY ==
[2020-03-27 13:31] VITALS: BP 134/85; PULSE 90; RESP 18; TEMP 36.4; O2SAT 97; BMI 28.5
[2020-03-27 13:35] VITALS: BP 157/130; PULSE 84; RESP 18; O2SAT 99
--- NOTE | 2020-03-27 13:38 | CT_ITS ---
WS: [id number] CT HEAD TECHNIQUE: Noncontrast CT of the head obtained from the skullbase to the vertex. CLINICAL INFORMATION: trevizo COMPARISON: December 23, 2019 DLP: 650.[address] scans at [facility] use at least one of these dose optimization techniques: automat ed exposure control; mA and/or kV adjustment per patient size (includes targeted exams where dose is matched to clinical indication); or iterative reconstruction. FINDINGS: No evidence of intracranial hemorrhage or mass effect. Ventricular system and basal cisterns are martinez nt. Mild small vessel changes with mild parenchymal volume loss. No extra-axial fluid collections. No evidence of mass or mass effect. Normal garza-white differentiation. Small amount of fluid in the sphenoid sinus. Mastoid air cells are well aerated. Embolization coils i n the right cavernous sinus and middle cranial fossa unchanged. CT/CT head wo con* [id number] IMPRESSION: 1. No evidence of intracranial hemorrhage or mass effect. 2. Mild small vessel changes. Mild parenchymal volume loss. 3. Mild sphenoid sinusitis. 4. No acute intracranial findings.
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
[2020-03-27] MEDS: metoclopramide 5 mg/mL SDV 2 mL 10 MG IVP (13:59)
[2020-03-27 14:05] VITALS: BP 134/70; PULSE 83; RESP 16; O2SAT 92
[2020-03-27] MEDS: diphenhydrAMINE 50 mg/mL SDV 1mL IVP (14:05)
[2020-03-27 14:35] VITALS: BP 120/74; PULSE 81; RESP 18; O2SAT 98
--- NOTE | 2020-03-27 14:51 | PC.NURSE ---
IV access unable to obtain meds given IM
[2020-03-27 15:00] VITALS: BP 124/83; PULSE 89; RESP 14; O2SAT 98
[2020-03-27 15:15] VITALS: BP 139/84; PULSE 85; RESP 16; O2SAT 98
== END 2020-03-27 15:22 | disposition home or self-care (01) ==
PROVIDERS: Emergency Provider Emergency Medicine; PCP Nurse Practitioner
DX: R51.9 Headache, unspecified (principal); Z79.82 Long term (current) use of aspirin; J44.9 Chronic obstructive pulmonary disease, unspecified; E11.9 Type 2 diabetes mellitus without complications; F17.210 Nicotine dependence, cigarettes, uncomplicated
CPT/HCPCS: 12345; 70450; 96374; 96375; 99281; 99283; J1200; J2765

== ENCOUNTER 2020-04-11 15:56 | Emergency (ER) | payer MEDICARE, MEDICAID, SELFPAY ==
[2020-04-11 16:01] VITALS: BP 105/57; PULSE 92; RESP 18; TEMP 36.7; O2SAT 96; BMI 28.5
[2020-04-11 16:03] VITALS: BP 99/41; PULSE 81; RESP 20; O2SAT 96
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
--- NOTE | 2020-04-11 17:43 | ECG_ITS ---
[facility] Test Date: 2020-04-11 Pat Name: Brenna Francisco Department: Room: Gender: Female Packager Hand: : 1965 Requested By: Earnest Farias Order Number: [id number] Randhawa MD: Regina Carpio M.D. Measurements Intervals [place] Rate: 72 P: 57 AR: 129 QRS: 36 QRSD: 86 T: 38 QT: 382 QTc: 421 Interpretive Statements SINUS RHYTHM Compared to ECG 12/23/2019 18:46:28 No significant changes Electronically Signed On 04-11-2020 23:52:58 FLOWER STRIPPER by Regina Carpio M.D. [email or web address] memorial hospitalAxonics Modulation Technologieskettering health behavioral medical center.BedyCasa/store/NU/[id number] f
[2020-04-11 18:00] LABS: Basophils # 0.1 10^3/uL (0.0-0.1); Basophils % 1.2 %; Eosinophils # 0.2 10^3/uL (0.0-0.8); Hematocrit 42.5 % (37.0-47.0); Hemoglobin 13.4 g/dL (11.5-15.3); Lymphocytes # 3.4 10^3/uL (0.8-4.8); Lymphocytes % 36.3 %; Mean Corpuscular HGB Conc 31.5 g/dL (30.0-36.0); Mean Corpuscular Volume 95.1 fL (81-99); Mean Platelet Volume 10.4 fL (7.4-10.4); Monocytes # 0.6 10^3/uL (0.2-0.9); Monocytes % 6.2 %; Neutrophils # 5.11 10^3/uL (1.8-7.7); Nucleated Red Blood Cells % 0 %; Platelet Count 319 10^3/cmm (130-400); Red Blood Count 4.47 10^6/uL (4.1-5.3); Red Cell Distribution Width 13.2 % (12.1-15.1); White Blood Count 9.5 10^3/uL (4.0-10.0)
[2020-04-11 18:04] VITALS: BP 99/41; PULSE 78; RESP 18; O2SAT 95
[2020-04-11 18:20] LABS: Alanine Aminotransferase 23 U/L (0-33); Albumin Level 4.4 g/dL (3.5-5.2); Alkaline Phosphatase 107 IU/L (35-105); Aspartate Amino Transferase 22 U/L (0-32); Blood Urea Nitrogen 25 mg/dL (6-20); Calcium 9.5 mg/dL (8.5-10.5); Carbon Dioxide 24 mmol/L (22-29); Chloride 104 mmol/L (98-107); Globulin 2.7 g/dL (1.3-4.6); Glomerular Filtration Rate 57.8 mL/min (90-130); Glucose 125 mg/dL (65-115); Lipase 50 U/L (13-60); Osmolality Calculated 292 mOsm/kg (285-295); Sodium 138 mmol/L (136-145); Total Bilirubin 0.2 mg/dL (0.15-1.2); Total Protein 7.1 g/dL (6.6-8.7)
--- NOTE | 2020-04-11 18:23 | USR_ITS ---
PROCEDURE INFORMATION: Exam: US Abdomen, Limited; Right Upper Quadrant Exam date and time: 04/11/2020 7:22 PM Age: 54 years old Clinical indication: Abdominal pain; Localized; Right upper quadrant (ruq); Prior surgery; Surgery date: 6+ months; Surgery type: Appendectomy; Additional info: Ruq tenderness with n/v TECHNIQUE: Imaging protocol: US abdomen. Real time ultrasound with image documentation. Limited exam focused on the right upper quadrant. COMPARISON: CT abdomen pelvis w con* [id number] 03/18/2020 1:47 AM FINDINGS: Liver: There is diffuse increased echogenicity of the liver parenchyma and attenuation of sound in the deep portions of the liver obscuring fine hepatic detail, consistent with fatty infiltration. Gallbladder: The gallbladder is decompressed. The wall is not significantly thickened. No stones are seen. Sonographic Caro sign is negative. Common bile duct: The common bile duct is nondilated measuring 4 mm. Pancreas: The visible portion of the pancreas is unremarkable. Right kidney: The right kidney is unremarkable. Aorta: The upper abdominal aorta is unremarkable. Portal venous: The portal vein is patent. Inferior vena cava: The IVC is unremarkable. US/US gall bladder [id number] IMPRESSION: 1. No sign of acute cholecystitis. Contracted gallbladder. No cholelithiasis. 2. Diffuse fatty infiltration of the liver.
--- NOTE | 2020-04-11 18:23 | ECG_ITS ---
[facility] Test Date: 2020-04-11 Pat Name: Brenna Francisco Department: Room: Gender: Female Tack Puller Machine: : 1965 Requested By: Earnest Farias Order Number: [id number] Sydnee MD: Regina Carpio M.D. Measurements Intervals [place] Rate: 72 P: 57 CT: 129 QRS: 36 QRSD: 86 T: 38 QT: 382 QTc: 421 Interpretive Statements SINUS RHYTHM Compared to ECG 12/23/2019 18:46:28 No significant changes Electronically Signed On 04-11-2020 23:54:30 FOOD SERVICE AIDE by Regina Carpio M.D. [email or web address] [email or web address] hospitalOsurvmercy health lor[facility] hospital.Intean Poalroath Rongroeurng/store/NU/[id number] f
[2020-04-11] MEDS: ondansetron 2 mg/ML SDV 2 mL 4 MG IVP (18:49)
[2020-04-11] MEDS: lidocaine 2% viscous 15 ML, aluminum-mag hydrox-simethicon 30 ML, sucralfate oral liq 1 GM PO (18:51)
[2020-04-11] MEDS: sodium chloride 0.9% 1,000 ML 999 ML IV (18:52)
[2020-04-11 18:54] LABS: Troponin(5th) Baseline 6 ng/L (0-10)
[2020-04-11 19:07] LABS: Bacteria Urine TRACE /hpf; Bilirubin Urine Neg (Negative); Blood Urine Neg (Negative); Glucose Urine UA 4+ (Normal); Ketones Urine Negative (Negative); Leukocyte Esterase Urine Trace (Negative); Nitrate Urine Negative (Negative); Protein Urine Neg (Negative); Urine Appearance Clear (CLEAR); Urine Color Yellow (Yellow); Urobilinogen Urine Norm (Negative); WBC Urine 0-4 /hpf (0-5)
[2020-04-11 19:08] LABS: Add Urine Culture? No
[2020-04-11] MEDS: ketorolac 30 mg/mL INJ IVP (19:17)
--- NOTE | 2020-04-11 20:20 | CTR_ITS ---
PROCEDURE INFORMATION: Exam: CT Abdomen And Pelvis With Contrast Exam date and time: 04/11/2020 9:00 PM Age: 54 years old Clinical indication: Nausea and vomiting; Abdominal pain; Generalized; Prior surgery; Surgery type: Appy, hyst; Additional info: Abdom pain, n/v TECHNIQUE: Imaging protocol: Computed tomography of the abdomen and pelvis with intravenous contrast. Radiation optimization: All CT scans at this facility use at least one of these dose optimization techniques: automated exposure control; mA and/or kV adjustment per patient size (includes targeted exams where dose is matched to clinical indication); or iterative reconstruction. Contrast material: OMNI 300; Contrast volume: 95 ml; Contrast route: INTRAVENOUS (IV); COMPARISON: CT abdomen pelvis w con* [id number] 03/18/2020 1:47 AM RADIATION DOSE METRICS: Total DLP (mGy-cm): 851.11 FINDINGS: Lungs: There is subsegmental atelectasis in the lung bases. Liver: The liver is normal. Gallbladder and bile ducts: The gallbladder is normal. There is no biliary dilation. Pancreas: The pancreas is unremarkable. Spleen: The spleen is unremarkable. Adrenal glands: The adrenal glands are unremarkable. Kidneys and ureters: There is a nonobstructive stone in the right kidney. The left kidney and ureter are unremarkable. There is no hydronephrosis or ureteral dilation. Stomach and bowel: The stomach is decompressed, preventing meaningful evaluation of wall thickness. The small bowel is nondilated. There is mild distal colonic diverticulosis without evidence of diverticulitis. Appendix: The appendix is absent. Intraperitoneal space: There is no free air or significant intraperitoneal free fluid. Vasculature: There is moderate aortic atherosclerotic disease. Lymph nodes: There is no lymphadenopathy in the retroperitoneum, mesentery, pelvis or inguinal regions. Urinary bladder: The urinary bladder is unremarkable. Reproductive: The uterus is absent. There is no adnexal mass or large cyst. Bones/joints: Bones are unremarkable. Soft tissues: The abdominal wall is intact. CT/CT abdomen pelvis w con* [id number] IMPRESSION: No acute findings. Radiation Dose CTDIVOL = (mGy): DLP = 851.11 (mGy-cm)
--- NOTE | 2020-04-11 20:23 | ECG_ITS ---
[facility] Test Date: 2020-04-11 Pat Name: Brenna Francisco Department: Room: Gender: Female Vector Control Assistant: : 1965 Requested By: Earnest Farias Order Number: [id number] Randhawa MD: Regina Carpio M.D. Measurements Intervals [place] Rate: 68 P: 61 WV: 137 QRS: 34 QRSD: 89 T: 37 QT: 424 QTc: 451 Interpretive Statements SINUS RHYTHM Compared to ECG 04/11/2020 18:04:50 No significant changes Electronically Signed On 04-12-2020 0:12:11 COLORER MACHINE by Regina Carpio M.D. [id number]
[2020-04-11 20:34] LABS: Troponin 5 2HR 6.22 ng/L (0-10); Troponin 5 2HR Delta 0.22 ABS# (0-10)
[2020-04-11 20:38] VITALS: BP 109/51; PULSE 76; O2SAT 96
[2020-04-11] MEDS: iohexol 300 mg/mL 100 mL Btl IV (21:13)
[2020-04-11 22:10] VITALS: BP 107/47; PULSE 78; O2SAT 98
== END 2020-04-11 22:14 | disposition home or self-care (01) ==
PROVIDERS: Emergency Provider Physician Assistant; PCP Nurse Practitioner
DX: R10.10 Upper abdominal pain, unspecified (principal); Z79.82 Long term (current) use of aspirin; J44.9 Chronic obstructive pulmonary disease, unspecified; E11.9 Type 2 diabetes mellitus without complications; F17.210 Nicotine dependence, cigarettes, uncomplicated
CPT/HCPCS: 12345; 36415; 74177; 76705; 80053; 81001; 83690; 84484; 85025; 93005; 96361; 96374; 96375; 99283; 99284; J1885; J2405; J7030; Q9967

== ENCOUNTER → 2020-05-01 11:34 | Outpatient (BNVA) | payer MEDICARE, SELFPAY | PROVIDERS: PCP Nurse Practitioner; Visit Provider Nurse Practitioner Family | DX: M79.621 Pain in right upper arm (principal); Z12.31 Encounter for screening mammogram for malignant neoplasm of breast | CPT/HCPCS: 85025 ==

== ENCOUNTER → 2020-05-04 08:59 | Outpatient (BNVA) | payer MEDICARE, SELFPAY | PROVIDERS: PCP Nurse Practitioner; Visit Provider Nurse Practitioner | DX: F33.2 Major depressive disorder, recurrent severe without psychotic features (principal); F12.20 Cannabis dependence, uncomplicated; F25.1 Schizoaffective disorder, depressive type | CPT/HCPCS: 99214 ==

== ENCOUNTER 2020-05-04 13:19 | Emergency (ER) | payer MEDICARE, MEDICAID, SELFPAY ==
[2020-05-04 13:21] VITALS: BP 76/65; PULSE 74; RESP 16; TEMP 36.4; O2SAT 93; BMI 29.4
[2020-05-04 13:26] VITALS: BP 98/55; PULSE 72; RESP 16; O2SAT 92
--- NOTE | 2020-05-04 13:28 | CT_ITS ---
WS: [id number] CT ABDOMEN AND PELVIS WITH CONTRAST HISTORY: Abd Pain TECHNIQUE: Imaging performed of the abdomen and pelvis with IV contrast. Single phase imaging of the abdomen. Coronal and sagittal reformats are submitted. All CT scans at [facility] use at least one of these dose optimization techniques: automated exposure control; mA and/or kV adjustment per patient size (includes targeted exams where dose is matched to clinical indication); or iterativ e reconstruction. IV CONTRAST: Omnipaque 300; 95 mL IV. Oral contrast: No DLP: 823.13 mGy.cm COMPARISON: 04/11/2020 Lower thorax: Minimal dependent changes at the lung bases. Heart is normal size. No hiatal hernia. Liver/biliary system: Mild hepatic enlargement. No mass or bile duct dilatation. Gallbladder: Mildly contracted gallbladder. No abnormality noted. Pancreas: Normal. Spleen: Normal. Adrenal glands: Normal. Right kidney: Nonobstructing calcification in the upper pole. No solid mass. Left kidney: Normal. Aorta: Mild atherosclerosis with no aneurysm. Lymphadenopathy: None. Free fluid: None. GI tract: Postsurgical changes at the cecum. Prior appendectomy. Mild fluid distention of the cecum b ut no obstruction. There are a few sigmoid diverticula without evidence for acute diverticulitis. No obstruction. Abdominal wall: Unremarkable abdominal wall. No hernia. Pelvis: Well-distended urinary bladder. Prior hysterectomy. Bones: Unremarkable. CT/CT abdomen pelvis w con* [id number] IMPRESSION: 1. No acute abdominal or pelvic abnormalities are identified. 2. Prior appendectomy and hysterectomy. 3. No free fluid. 4. Diverticulosis without acute diverticulitis.
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
[2020-05-04] MEDS: sodium chloride 0.9% 500 ML IV (13:53)
[2020-05-04 14:05] LABS: Basophils # 0.1 10^3/uL (0.0-0.1); Basophils % 0.9 %; Eosinophils # 0.2 10^3/uL (0.0-0.8); Eosinophils % 2.2 %; Hematocrit 39.2 % (37.0-47.0); Hemoglobin 12.3 g/dL (11.5-15.3); Lymphocytes # 3.8 10^3/uL (0.8-4.8); Lymphocytes % 36.1 %; Mean Corpuscular HGB Conc 31.4 g/dL (30.0-36.0); Mean Corpuscular Hemoglobin 30.1 pg (28.0-34.0); Mean Corpuscular Volume 95.8 fL (81-99); Mean Platelet Volume 10.6 fL (7.4-10.4); Monocytes # 0.7 10^3/uL (0.2-0.9); Monocytes % 6.3 %; Neutrophils # 5.73 10^3/uL (1.8-7.7); Nucleated Red Blood Cells % 0 %; Platelet Count 274 10^3/cmm (130-400); Red Blood Count 4.09 10^6/uL (4.1-5.3); Red Cell Distribution Width 13.4 % (12.1-15.1); White Blood Count 10.6 10^3/uL (4.0-10.0)
[2020-05-04 14:21] VITALS: BP 139/92; PULSE 77; RESP 18; O2SAT 91
[2020-05-04 14:25] LABS: Alanine Aminotransferase 21 U/L (0-33); Albumin Level 3.7 g/dL (3.5-5.2); Alkaline Phosphatase 101 IU/L (35-105); Anion Gap 13.2 (5-19); Aspartate Amino Transferase 17 U/L (0-32); Blood Urea Nitrogen 17 mg/dL (6-20); Calcium 8.7 mg/dL (8.5-10.5); Carbon Dioxide 23 mmol/L (22-29); Chloride 108 mmol/L (98-107); Globulin 2.6 g/dL (1.3-4.6); Glomerular Filtration Rate 74.7 mL/min (90-130); Glucose 110 mg/dL (65-115); Osmolality Calculated 292 mOsm/kg (285-295); Potassium 4.2 mmol/L (3.5-5.1); Sodium 140 mmol/L (136-145); Total Bilirubin 0.2 mg/dL (0.15-1.2); Total Protein 6.3 g/dL (6.6-8.7)
[2020-05-04 14:40] LABS: Add Urine Microscopic? NO
[2020-05-04] MEDS: iohexol 300 mg/mL 100 mL Btl IV (15:02)
[2020-05-04 15:05] LABS: Urine Appearance Clear (CLEAR); Urine Color Straw (Yellow)
[2020-05-04 15:06] LABS: Bilirubin Urine Neg (Negative); Blood Urine Neg (Negative); Glucose Urine UA 4+ (Normal); Ketones Urine Negative (Negative); Leukocyte Esterase Urine Negative (Negative); Nitrate Urine Negative (Negative); Protein Urine Neg (Negative); Urobilinogen Urine Norm (Negative); pH Urine 6.5 (5-7)
[2020-05-04 15:14] LABS: Amphetamines Screen Urine Negative (Negative); Barbiturates Screen Urine Negative (Negative); Benzodiazepines Screen Urine Negative (Negative); Cocaine Screen Urine Negative (Negative); Opiate Screen Urine Positive (Negative); PCP Screen Urine Negative (Negative); THC Screen Urine Positive (Negative)
[2020-05-04 16:22] VITALS: BP 103/42; PULSE 80; RESP 18; O2SAT 94
== END 2020-05-04 16:22 | disposition home or self-care (01) ==
PROVIDERS: Emergency Provider Emergency Medicine; PCP Nurse Practitioner
DX: K21.00 Gastro-esophageal reflux disease with esophagitis, without bleeding (principal); R10.9 Unspecified abdominal pain; Z79.82 Long term (current) use of aspirin; F17.210 Nicotine dependence, cigarettes, uncomplicated; J44.9 Chronic obstructive pulmonary disease, unspecified; E11.9 Type 2 diabetes mellitus without complications; Z79.899 Other long term (current) drug therapy
CPT/HCPCS: 12345; 51701; 74177; 80053; 80306; 81003; 85025; 96360; 99282; 99283; J7040; Q9967

== ENCOUNTER 2020-05-05 08:26 | Outpatient (CLI) | payer MEDICARE, MEDICAID, SELFPAY ==
--- NOTE | 2020-05-05 08:31 | NM_ITS ---
WS: [id number] NUCLEAR MEDICINE HIDA SCAN WITH GALLBLADDER EJECTION FRACTION HISTORY: R10.11 - Right upper quadrant pain COMPARISON: None available. TECHNIQUE: The patient was intravenously injected with 8.2 mCi of TC99m Mebrofenin. Immediate imaging over the right upper quadrant was followed by 5 minute image and additional images for a total of 60 minutes. Normal uptake of radiotracer throughout the liver. Activity identified in the gallbladder at 10 minutes and well distended by 60 minutes. Activity in the proximal small bowel was seen by 30 minutes. Good washout of the radiotracer from the liver by 60 minutes. The patient then drank 8 ounces of Ensure Plus. Ejection fraction at 60 minutes was 90%. Normal GB ej ection fraction is 35-75%. Post fatty meal symptoms: None. NM/NM hepatobiliary w phar* [id number] IMPRESSION: 1. Normal HIDA scan. 2. Normal gallbladder ejection fraction.
== END 2020-05-05 08:27 | disposition home or self-care (01) ==
LOC: NM 08:29
PROVIDERS: PCP Nurse Practitioner; Visit Provider Surgery
DX: R10.11 Right upper quadrant pain (principal)
CPT/HCPCS: 78227; A9537

== ENCOUNTER → 2020-05-12 08:01 | Outpatient (BNVA) | payer MEDICARE, MEDICAID, SELFPAY | PROVIDERS: PCP Nurse Practitioner; Visit Provider Nurse Practitioner | DX: F33.2 Major depressive disorder, recurrent severe without psychotic features (principal); F25.1 Schizoaffective disorder, depressive type; F12.20 Cannabis dependence, uncomplicated; F41.1 Generalized anxiety disorder | CPT/HCPCS: 99214 ==

== ENCOUNTER 2020-06-06 23:00 | Emergency (ER) | payer MEDICARE, MEDICAID, SELFPAY ==
[2020-06-06 23:09] VITALS: BP 130/60; PULSE 80; RESP 20; TEMP 36.7; O2SAT 94; BMI 30.1
--- NOTE | 2020-06-06 23:10 | CTR_ITS ---
PROCEDURE INFORMATION: Exam: CT Abdomen And Pelvis With Contrast Exam date and time: 06/06/2020 11:12 PM Age: 55 years old Clinical indication: Abdominal pain; Generalized; Prior surgery; Surgery type: Appy, hyst; Patient HX: Diffuse abd pain with distention/diarrhea x 2 days TECHNIQUE: Imaging protocol: Computed tomography of the abdomen and pelvis with contrast. Radiation optimization: All CT scans at this facility use at least one of these dose optimization techniques: automated exposure control; mA and/or kV adjustment per patient size (includes targeted exams where dose is matched to clinical indication); or iterative reconstruction. Contrast material: OMNI 300; Contrast volume: 95 ml; Contrast route: INTRAVENOUS (IV); COMPARISON: CT abdomen pelvis w con* [id number] 05/04/2020 2:44 PM RADIATION DOSE METRICS: Total DLP (mGy-cm): 962.56 FINDINGS: Liver: Normal. No mass. Gallbladder and bile ducts: Normal. No calcified stones. No ductal dilation. Pancreas: Normal. No ductal dilation. Spleen: Normal. No splenomegaly. Adrenal glands: Normal. No mass. Kidneys and ureters: Small calcified nonobstructing right upper pole kidney stone. No hydronephrosis. No perinephric inflammation. Stomach and bowel: No features of bowel obstruction or bowel perforation. No focal inflammatory wall thickening of bowel loops. Mild diverticulosis coli. Stomach decompressed and unremarkable. Negative for bowel wall pneumatosis. Appendix: Appendectomy. Intraperitoneal space: Negative for pneumoperitoneum. Vasculature: Patent mesenteric vasculature. Mild atherosclerotic plaques of abdominal aorta. No aneurysm. Lymph nodes: Unremarkable. No enlarged lymph nodes. Urinary bladder: Unremarkable as visualized. Reproductive: Hysterectomy. Bones/joints: Unremarkable. No acute fracture. Soft tissues: No significant soft tissue inflammation. Other findings: Negative for abdominal abscess. CT/CT abdomen pelvis w con* [id number] IMPRESSION: 1. No acute pathology in the abdomen or pelvis identified. 2. No significant change from comparison on 05/04/2020. Radiation Dose CTDIVOL = (mGy): DLP = 962.56 (mGy-cm)
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
[2020-06-06] MEDS: iohexol 300 mg/mL 100 mL Btl IV (23:25)
[2020-06-06 23:37] VITALS: BP 130/60; PULSE 84; RESP 16; O2SAT 96
[2020-06-06] MEDS: sodium chloride 0.9% 1,000 ML 999 ML IV (23:56)
[2020-06-06] MEDS: metoclopramide 5 mg/mL SDV 2 mL 10 MG IVP (23:57)
[2020-06-06] MEDS: diphenhydrAMINE 50 mg/mL SDV 1mL IVP (23:58)
[2020-06-06] MEDS: ondansetron 2 mg/ML SDV 2 mL 4 MG IVP (23:59)
[2020-06-07 00:07] LABS: Add Urine Microscopic? NO
[2020-06-07 00:27] LABS: Alanine Aminotransferase 27 U/L (0-33); Albumin Level 3.9 g/dL (3.5-5.2); Alkaline Phosphatase 87 IU/L (35-105); Anion Gap 14.9 (5-19); Aspartate Amino Transferase 22 U/L (0-32); Blood Urea Nitrogen 14 mg/dL (6-20); Calcium 8.5 mg/dL (8.5-10.5); Carbon Dioxide 22 mmol/L (22-29); Chloride 104 mmol/L (98-107); Globulin 2.5 g/dL (1.3-4.6); Glomerular Filtration Rate 46.6 mL/min (90-130); Glucose 117 mg/dL (65-115); Lipase 32 U/L (13-60); Osmolality Calculated 286 mOsm/kg (285-295); Potassium 3.9 mmol/L (3.5-5.1); Sodium 137 mmol/L (136-145); Total Bilirubin 0.3 mg/dL (0.15-1.2); Total Protein 6.4 g/dL (6.6-8.7)
[2020-06-07 00:27] LABS: Glucose Urine UA 2+ (Normal); Protein Urine Neg (Negative); Urine Appearance Clear (CLEAR); Urine Color Yellow (Yellow); pH Urine 6.5 (5-7)
[2020-06-07 00:28] LABS: Bilirubin Urine Neg (Negative); Blood Urine Neg (Negative); Ketones Urine Negative (Negative); Leukocyte Esterase Urine Negative (Negative); Nitrate Urine Negative (Negative); Urobilinogen Urine Norm (Negative)
[2020-06-07 00:33] VITALS: BP 130/60; PULSE 88; RESP 16; O2SAT 94
[2020-06-07 00:44] LABS: Basophils # 0.1 10^3/uL (0.0-0.1); Basophils % 0.8 %; Eosinophils # 0.2 10^3/uL (0.0-0.8); Hematocrit 39.8 % (37.0-47.0); Hemoglobin 12.7 g/dL (11.5-15.3); Lymphocytes # 3.7 10^3/uL (0.8-4.8); Mean Corpuscular HGB Conc 31.9 g/dL (30.0-36.0); Mean Corpuscular Hemoglobin 30.2 pg (28.0-34.0); Mean Corpuscular Volume 94.8 fL (81-99); Mean Platelet Volume 10.4 fL (7.4-10.4); Monocytes # 0.8 10^3/uL (0.2-0.9); Monocytes % 6.7 %; Neutrophils # 6.98 10^3/uL (1.8-7.7); Neutrophils % 59.2 %; Nucleated Red Blood Cells % 0 %; Platelet Count 249 10^3/cmm (130-400); Red Cell Distribution Width 13.6 % (12.1-15.1); White Blood Count 11.8 10^3/uL (4.0-10.0)
[2020-06-07 01:07] VITALS: BP 116/76; PULSE 80; RESP 18; O2SAT 96
== END 2020-06-07 01:09 | disposition home or self-care (01) ==
PROVIDERS: Emergency Provider Emergency Medicine; PCP Nurse Practitioner
DX: R10.84 Generalized abdominal pain (principal); J44.9 Chronic obstructive pulmonary disease, unspecified; E11.9 Type 2 diabetes mellitus without complications; F17.210 Nicotine dependence, cigarettes, uncomplicated
CPT/HCPCS: 74177; 80053; 81003; 83690; 85025; 96361; 96374; 96375; 99284; J1200; J2405; J2765; J7030; Q9967

== ENCOUNTER 2020-06-18 12:09 | Emergency (ER) | payer MEDICARE, MEDICAID, SELFPAY ==
[2020-06-18 12:09] VITALS: BP 124/76; PULSE 79; RESP 18; TEMP 36.8; O2SAT 94; BMI 29.5
[2020-06-18 12:18] VITALS: PULSE 92
--- NOTE | 2020-06-18 12:21 | USR_ITS ---
PROCEDURE INFORMATION: Exam: US Duplex Left Upper Extremity Veins, Limited Exam date and time: 06/18/2020 12:27 PM Age: 55 years old Clinical indication: Pain; Swelling (edema) of limb; Upper extremity, left; Arm, upper and arm, lower; Additional info: Non traumatic pain and swelling TECHNIQUE: Imaging protocol: Real-time Duplex ultrasound of the Left Upper Extremity with 2-D garza scale, color Doppler flow and spectral waveform analysis with image documentation. Limited exam focused on the left upper extremity veins. COMPARISON: No relevant prior studies available. FINDINGS: Left deep veins: Unremarkable. Axillary and brachial veins are patent throughout without thrombus. Normal Doppler waveforms. Normal compressibility and/or augmentation response. Visualized internal jugular and subclavian veins are patent. Left superficial veins: Unremarkable. Visualized cephalic and basilic veins are patent without thrombus. Soft tissues: Unremarkable. US/[place] [id number] IMPRESSION: No evidence of deep vein thrombosis.
--- NOTE | 2020-06-18 12:21 | XRR_ITS ---
PROCEDURE INFORMATION: Exam: XR Left Shoulder Exam date and time: 06/18/2020 12:32 PM Age: 55 years old Clinical indication: Patient HX: Left shoulder pain TECHNIQUE: Imaging protocol: XR Left shoulder. Views: 2 or more views. COMPARISON: CR Shoulder 2+ views LEFT* [id number] 12/12/2017 6:59 PM FINDINGS: Bones/joints: There are mild degenerative changes across the acromioclavicular joint. Soft tissues: Normal. XR/XR shoulder LT min 2V* [id number] IMPRESSION: There are mild degenerative changes across the acromioclavicular joint. No acute shoulder fracture.
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
[2020-06-18] MEDS: HYDROcodone-acetaminophen 7.5-325 mg Tablet 1 TAB PO (12:51)
[2020-06-18] MEDS: ondansetron 4 MG Tablet PO (12:53)
[2020-06-18] MEDS: ipratropium-albuterol 3 mL Neb 6 ML INHALATION (13:00)
[2020-06-18 13:04] VITALS: PULSE 67; RESP 18; O2SAT 95
[2020-06-18 13:07] VITALS: PULSE 69
--- NOTE | 2020-06-18 14:18 | PC.NURSE ---
Read and agree with assessment.
[2020-06-18 17:00] VITALS: BP 106/59; PULSE 79; RESP 16; O2SAT 93
== END 2020-06-18 17:00 | disposition home or self-care (01) ==
PROVIDERS: Emergency Provider Physician Assistant; PCP Nurse Practitioner
DX: M25.512 Pain in left shoulder (principal); J44.9 Chronic obstructive pulmonary disease, unspecified; E11.9 Type 2 diabetes mellitus without complications; F17.210 Nicotine dependence, cigarettes, uncomplicated
CPT/HCPCS: 29240; 73030; 93971; 94640; 99283; Q0162

== ENCOUNTER → 2020-06-20 07:33 | Outpatient (BNVA) | payer MEDICARE, MEDICAID, SELFPAY | PROVIDERS: PCP Nurse Practitioner; Visit Provider Nurse Practitioner | DX: F33.2 Major depressive disorder, recurrent severe without psychotic features (principal); F25.1 Schizoaffective disorder, depressive type; F12.20 Cannabis dependence, uncomplicated | CPT/HCPCS: 99214 ==

== ENCOUNTER 2020-06-30 21:51 | Emergency (ER) | payer MEDICARE, MEDICAID, SELFPAY ==
[2020-06-30] VITALS (8 sets, daily range): BP systolic 103–137; BP diastolic 59–82; PULSE 80–104; RESP 16–22; TEMP 36.8; O2SAT 92–99; BMI 29.2
--- NOTE | 2020-06-30 22:04 | XRR_ITS ---
PROCEDURE INFORMATION: Exam: XR Chest Exam date and time: 06/30/2020 10:09 PM Age: 55 years old Clinical indication: Shortness of breath; Additional info: SOB TECHNIQUE: Imaging protocol: XR of the chest Views: 1 view. COMPARISON: CR XR chest 1V portable [id number] 03/18/2020 1:43 AM FINDINGS: Lungs: Lungs are clear bilaterally. Pleural spaces: No pleural effusion. No pneumothorax. Heart/Mediastinum: Stable mild enlargement of the cardiac silhouette. Mediastinal contours are unremarkable. Bones/joints: Stable changes consistent with prior fusion in the lower cervical spine. XR/XR chest 1V portable [id number] IMPRESSION: 1. No acute cardiopulmonary process. 2. Incidental/nonacute findings are listed in the report.
[2020-06-30] MEDS: ipratropium-albuterol 3 mL Neb INHALATION (22:19)
[2020-06-30] MEDS: dexamethasone 4 mg/mL INJ 10 MG IVP (22:19)
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
[2020-06-30 22:37] LABS: Basophils # 0.1 10^3/uL (0.0-0.1); Basophils % 0.9 %; Eosinophils # 0.2 10^3/uL (0.0-0.8); Eosinophils % 1.4 %; Hematocrit 42.1 % (37.0-47.0); Hemoglobin 13.7 g/dL (11.5-15.3); Lymphocytes # 4.9 10^3/uL (0.8-4.8); Lymphocytes % 42.9 %; Mean Corpuscular HGB Conc 32.5 g/dL (30.0-36.0); Mean Corpuscular Volume 92.3 fL (81-99); Mean Platelet Volume 10.9 fL (7.4-10.4); Monocytes # 0.6 10^3/uL (0.2-0.9); Monocytes % 5.6 %; Neutrophils # 5.55 10^3/uL (1.8-7.7); Neutrophils % 48.7 %; Nucleated Red Blood Cells % 0 %; Platelet Count 269 10^3/cmm (130-400); Red Blood Count 4.56 10^6/uL (4.1-5.3); Red Cell Distribution Width 13.4 % (12.1-15.1); White Blood Count 11.4 10^3/uL (4.0-10.0)
[2020-06-30 23:07] LABS: Alanine Aminotransferase 20 U/L (0-33); Alkaline Phosphatase 98 IU/L (35-105); Aspartate Amino Transferase 18 U/L (0-32); Blood Urea Nitrogen 24 mg/dL (6-20); Calcium 9.7 mg/dL (8.5-10.5); Carbon Dioxide 25 mmol/L (22-29); Chloride 101 mmol/L (98-107); Creatinine Clr Calc Pharmacy 76.9879; Globulin 3.1 g/dL (1.3-4.6); Glomerular Filtration Rate 74.5 mL/min (90-130); Glucose 168 mg/dL (65-115); NT Pro B Type Natriuretic Pept 26 pg/mL (0-125); Osmolality Calculated 292 mOsm/kg (285-295); Sodium 137 mmol/L (136-145); Total Bilirubin 0.2 mg/dL (0.15-1.2); Total Protein 7.1 g/dL (6.6-8.7)
[2020-06-30 23:19] LABS: Anion Gap 14.9 (5-19); Potassium 3.9 mmol/L (3.5-5.1)
== END 2020-06-30 23:51 | disposition home or self-care (01) ==
PROVIDERS: Emergency Provider Emergency Medicine; PCP Nurse Practitioner
DX: J40 Bronchitis, not specified as acute or chronic (principal); J44.9 Chronic obstructive pulmonary disease, unspecified; E11.9 Type 2 diabetes mellitus without complications; F17.210 Nicotine dependence, cigarettes, uncomplicated
CPT/HCPCS: 71045; 80053; 83880; 85025; 94640; 96374; 99284; J1100; J7611

== ENCOUNTER 2020-07-18 10:21 | Outpatient (CLI) | payer MEDICARE, MEDICAID, SELFPAY ==
[2020-07-17 15:13] VITALS: BP 148/78; BMI 30.5
--- NOTE | 2020-07-18 11:00 | MR_ITS ---
WS: [id number] MRI LEFT SHOULDER NONCONTRAST TECHNIQUE: Sagittal T2, coronal T1, T2 and proton density imaging. Axial gradient PDE imaging. CLINICAL INFORMATION: R29.898 - Other symptoms and signs involving the musculoskeletal system COMPARISON: None. FINDINGS: Moderate degenerative arthritis at the AC joint with moderate edema and synovial thickening. Mild heather nsloping acromion. Subacromial space is preserved. Mild chronic thinning of the distal supraspinatus. Otherwise normal supraspinatus. Normal infraspinatus. Normal subscapularis. Normal teres minor. No h igh-grade rotator cuff tears. Somewhat atrophic biceps tendon within the bicipital groove appears intact. Intra-articular biceps te ndon appears intact. Normal biceps labral anchor. Degenerative fraying glenoid labrum. Labrum appears grossly intact. Normal bone marrow signal in the glenoid and humerus. MR/MR shoulder LT wo con* [id number] IMPRESSION: 1. Moderate degenerative arthritis at the AC joint with edema and synovial thi ckening. 2. Rotator cuff is intact. No high-grade rotator cuff tears. 3. Somewhat atrophic but intact biceps tendon within the bicipital groove. 4. Normal bone marrow signal in the humerus and glenoid. 5. No other significant findings.
== END 2020-07-18 10:22 | disposition home or self-care (01) ==
LOC: RADSHAW 10:28
PROVIDERS: PCP Nurse Practitioner; Visit Provider Nurse Practitioner
DX: R29.898 Other symptoms and signs involving the musculoskeletal system (principal); M19.012 Primary osteoarthritis, left shoulder; E11.59 Type 2 diabetes mellitus with other circulatory complications
CPT/HCPCS: 73221; 80061; 81000; 83036

== ENCOUNTER → 2020-07-21 09:27 | Outpatient (BNVA) | payer MEDICARE, MEDICAID, SELFPAY ==
[2020-07-17 15:13] VITALS: BP 148/78; BMI 30.5
== END ==
PROVIDERS: PCP Nurse Practitioner; Visit Provider Nurse Practitioner
DX: F33.2 Major depressive disorder, recurrent severe without psychotic features (principal); F25.1 Schizoaffective disorder, depressive type; F12.20 Cannabis dependence, uncomplicated
CPT/HCPCS: 99214

== ENCOUNTER 2020-08-10 18:16 | Emergency (ER) | payer MEDICARE, MEDICAID, SELFPAY ==
[2020-07-17 15:13] VITALS: BP 148/78; BMI 30.5
[2020-08-10] VITALS (7 sets, daily range): BP systolic 97–127; BP diastolic 46–92; PULSE 67–89; RESP 16–18; TEMP 36.8; O2SAT 91–98; BMI 29.2
[2020-08-10 20:25] LABS: Add Urine Microscopic? NO; Charge for UA Resulting for Rev
[2020-08-10 20:33] LABS: Bilirubin Urine Neg (Negative); Blood Urine Neg (Negative); Glucose Urine UA 4+ (Normal); Ketones Urine Negative (Negative); Leukocyte Esterase Urine Negative (Negative); Nitrate Urine Negative (Negative); Protein Urine Neg (Negative); Specific Gravity, Urine 1.015 (1.005-1.030); Urine Appearance Clear (CLEAR); Urine Color Yellow (Yellow); Urobilinogen Urine Norm (Negative); pH Urine 5 (5-7)
[2020-08-10 20:59] LABS: Basophils # 0.1 10^3/uL (0.0-0.1); Basophils % 0.9 %; Eosinophils # 0.2 10^3/uL (0.0-0.8); Hemoglobin 14.4 g/dL (11.5-15.3); Lymphocytes # 4.3 10^3/uL (0.8-4.8); Mean Corpuscular HGB Conc 32.7 g/dL (30.0-36.0); Mean Corpuscular Hemoglobin 30.5 pg (28.0-34.0); Mean Corpuscular Volume 93.2 fL (81-99); Mean Platelet Volume 10.7 fL (7.4-10.4); Monocytes # 0.7 10^3/uL (0.2-0.9); Monocytes % 5.7 %; Neutrophils # 6.86 10^3/uL (1.8-7.7); Neutrophils % 55.9 %; Nucleated Red Blood Cells % 0 %; Platelet Count 273 10^3/cmm (130-400); Red Blood Count 4.72 10^6/uL (4.1-5.3); Red Cell Distribution Width 13.6 % (12.1-15.1); White Blood Count 12.3 10^3/uL (4.0-10.0)
[2020-08-10 21:18] LABS: Alanine Aminotransferase 31 U/L (0-33); Albumin Level 4.2 g/dL (3.5-5.2); Alkaline Phosphatase 100 IU/L (35-105); Anion Gap 13.9 (5-19); Aspartate Amino Transferase 19 U/L (0-32); Blood Urea Nitrogen 17 mg/dL (6-20); Calcium 9.2 mg/dL (8.5-10.5); Carbon Dioxide 22 mmol/L (22-29); Chloride 102 mmol/L (98-107); Globulin 2.7 g/dL (1.3-4.6); Glomerular Filtration Rate 86.9 mL/min (90-130); Glucose 187 mg/dL (65-115); Lipase 41 U/L (13-60); Osmolality Calculated 284 mOsm/kg (285-295); Potassium 3.9 mmol/L (3.5-5.1); Sodium 134 mmol/L (136-145); Total Bilirubin 0.2 mg/dL (0.15-1.2); Total Protein 6.9 g/dL (6.6-8.7)
[2020-08-10 21:21] LABS: Lactate (Lactic Acid level) 1.5 mmol/L (0.5-2.2); Slide Review Slide Review Perform
--- NOTE | 2020-08-10 21:42 | CTR_ITS ---
PROCEDURE INFORMATION: Exam: CT Abdomen And Pelvis With Contrast Exam date and time: 08/10/2020 9:50 PM Age: 55 years old Clinical indication: Abdominal pain; Epigastric; Prior surgery; Surgery type: Hyst, appy TECHNIQUE: Imaging protocol: Computed tomography of the abdomen and pelvis with contrast. Radiation optimization: All CT scans at this facility use at least one of these dose optimization techniques: automated exposure control; mA and/or kV adjustment per patient size (includes targeted exams where dose is matched to clinical indication); or iterative reconstruction. Contrast material: OMNI 300; Contrast volume: 95 ml; Contrast route: INTRAVENOUS (IV); COMPARISON: CT abdomen pelvis w con* [id number] 06/06/2020 11:35 PM RADIATION DOSE METRICS: Total DLP (mGy-cm): 1629.8 FINDINGS: Liver: There is hypoattenuation of the hepatic parenchyma compatible with fatty infiltration. Gallbladder and bile ducts: Normal. No calcified stones. No ductal dilation. Pancreas: Normal. No ductal dilation. Spleen: Normal. No splenomegaly. Adrenal glands: Normal. No mass. Kidneys and ureters: A 3 mm nonobstructing right renal calculus seen in the upper pole. Stomach and bowel: Unremarkable. No obstruction. No mucosal thickening. Appendix: Status post appendectomy. Intraperitoneal space: Unremarkable. No free air. No significant fluid collection. Vasculature: Unremarkable. No abdominal aortic aneurysm. Lymph nodes: Unremarkable. No enlarged lymph nodes. Urinary bladder: Unremarkable as visualized. Reproductive: Status post hysterectomy. Bones/joints: Unremarkable. No acute fracture. Soft tissues: Unremarkable. CT/CT abdomen pelvis w con* [id number] IMPRESSION: 1. There are no acute abdominal findings. 2. Fatty infiltration of the liver 3. Stable CT appearance of the abdomen and pelvis compared with 05/04/2020. Radiation Dose CTDIVOL = (mGy): DLP = 1629.8 (mGy-cm)
[2020-08-10] MEDS: ondansetron 2 mg/ML SDV 2 mL 4 MG IVP (22:14)
[2020-08-10] MEDS: sodium chloride 0.9% 500 ML 999 ML IV (22:14)
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
[2020-08-10] MEDS: iohexol 300 mg/mL 100 mL Btl IV (22:47)
--- NOTE | 2020-08-10 23:43 | ECG_ITS ---
[facility] Test Date: 2020-08-10 Pat Name: Brenna Francisco Department: Room: Gender: Female Nursing Home Assistant: : 1965 Requested By: Corinne Omer Order Number: [id number] Randhawa MD: Neymar Blue M.D. Measurements Intervals [place] Rate: 67 P: 66 MI: 148 QRS: 37 QRSD: 93 T: 35 QT: 406 QTc: 431 Interpretive Statements SINUS RHYTHM Compared to ECG 04/11/2020 21:22:29 No significant changes Electronically Signed On 08-11-2020 19:18:50 CDT by Neymar Blue M.D. [email or web address]
[2020-08-10] MEDS: sodium chloride 0.9% 1,000 ML 999 ML IV (23:52)
--- NOTE | 2020-08-10 23:54 | PC.NURSE ---
blood pressure cuff repositioned on patient
[2020-08-11] MEDS: acetaminophen 1,000 MG/100 ML PIGGYBACK 400 MG IV (00:31)
[2020-08-11 00:33] VITALS: BP 96/49; PULSE 72; RESP 16; O2SAT 92
[2020-08-11 01:05] VITALS: BP 106/68
[2020-08-11 01:06] LABS: Glucose Point of Care 135 mg/dL (70-110)
[2020-08-11 02:09] VITALS: BP 116/69; PULSE 80; RESP 15; O2SAT 92
== END 2020-08-11 02:10 | disposition home or self-care (01) ==
PROVIDERS: Emergency Provider Nurse Practitioner Family; PCP Nurse Practitioner
DX: R10.33 Periumbilical pain (principal); R11.0 Nausea; J44.9 Chronic obstructive pulmonary disease, unspecified; E11.9 Type 2 diabetes mellitus without complications; F17.210 Nicotine dependence, cigarettes, uncomplicated
CPT/HCPCS: 36415; 36416; 74177; 80053; 81003; 82962; 83605; 83690; 85025; 93005; 96361; 96374; 96375; 99284; J2405; J7030; J7040; Q9967

== ENCOUNTER → 2020-08-18 08:09 | Outpatient (BNVA) | payer MEDICARE, MEDICAID, SELFPAY ==
[2020-07-17 15:13] VITALS: BP 148/78; BMI 30.5
== END ==
PROVIDERS: PCP Nurse Practitioner; Visit Provider Nurse Practitioner
DX: F33.2 Major depressive disorder, recurrent severe without psychotic features (principal); F25.1 Schizoaffective disorder, depressive type; F12.20 Cannabis dependence, uncomplicated
CPT/HCPCS: 99214

== ENCOUNTER 2020-08-21 21:43 | Emergency (ER) | payer MEDICARE, MEDICAID, SELFPAY ==
[2020-07-17 15:13] VITALS: BP 148/78; BMI 30.5
[2020-08-21 21:50] VITALS: BP 109/69; PULSE 106; RESP 17; TEMP 36.3; O2SAT 95; BMI 29.2
--- NOTE | 2020-08-21 23:05 | XRR_ITS ---
PROCEDURE INFORMATION: Exam: XR Abdomen Exam date and time: 08/21/2020 1:02 AM Age: 55 years old Clinical indication: Constipation TECHNIQUE: Imaging protocol: XR of the abdomen. Views: Frontal supine view of the abdomen. 1 View. COMPARISON: CT abdomen pelvis w con* [id number] 08/10/2020 10:56 PM FINDINGS: Gastrointestinal tract: No dilated bowel to suggest obstruction. Bones/joints: No significant acute finding. Other findings: No definite abnormal masses or specific abnormal calcifications. XR/XR KUB [id number] IMPRESSION: 1. Nonspecific abdomen, no evidence of obstruction. 2. Other details discussed above.
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
[2020-08-22] MEDS: lactulose oral liq 20 gm/30 mL UDC 30 GM PO (01:58)
[2020-08-22 02:01] VITALS: BP 121/64; PULSE 96; RESP 18; TEMP 36.4; O2SAT 97
[2020-08-22 02:46] LABS: Basophils # 0.1 10^3/uL (0.0-0.1); Basophils % 0.7 %; Eosinophils # 0.2 10^3/uL (0.0-0.8); Eosinophils % 1.8 %; Hemoglobin 15.4 g/dL (11.5-15.3); Lymphocytes # 3.5 10^3/uL (0.8-4.8); Lymphocytes % 26.4 %; Mean Corpuscular HGB Conc 30.8 g/dL (30.0-36.0); Mean Corpuscular Hemoglobin 30.4 pg (28.0-34.0); Mean Corpuscular Volume 98.8 fL (81-99); Mean Platelet Volume 10.9 fL (7.4-10.4); Monocytes # 0.9 10^3/uL (0.2-0.9); Monocytes % 6.4 %; Neutrophils # 8.62 10^3/uL (1.8-7.7); Neutrophils % 64.3 %; Nucleated Red Blood Cells % 0 %; Platelet Count 262 10^3/cmm (130-400); Red Blood Count 5.06 10^6/uL (4.1-5.3); White Blood Count 13.4 10^3/uL (4.0-10.0)
[2020-08-22 03:12] LABS: Alanine Aminotransferase 24 U/L (0-33); Albumin Level 4.1 g/dL (3.5-5.2); Alkaline Phosphatase 87 IU/L (35-105); Blood Urea Nitrogen 19 mg/dL (6-20); Calcium 9.4 mg/dL (8.5-10.5); Carbon Dioxide 22 mmol/L (22-29); Chloride 102 mmol/L (98-107); Creatinine Clr Calc Pharmacy 68.4337; Globulin 2.8 g/dL (1.3-4.6); Glucose 156 mg/dL (65-115); Lipase 32 U/L (13-60); Osmolality Calculated 287 mOsm/kg (285-295); Sodium 136 mmol/L (136-145); Total Bilirubin 0.3 mg/dL (0.15-1.2); Total Protein 6.9 g/dL (6.6-8.7)
[2020-08-22 03:13] LABS: Anion Gap 16.1 (5-19); Aspartate Amino Transferase 22 U/L (0-32); Potassium 4.1 mmol/L (3.5-5.1)
[2020-08-22 03:44] VITALS: BP 116/87; PULSE 98; RESP 17; TEMP 36.6; O2SAT 95
== END 2020-08-22 03:46 | disposition home or self-care (01) ==
PROVIDERS: Emergency Provider Emergency Medicine; PCP Nurse Practitioner
DX: K59.00 Constipation, unspecified (principal); J44.9 Chronic obstructive pulmonary disease, unspecified; E11.9 Type 2 diabetes mellitus without complications; F17.210 Nicotine dependence, cigarettes, uncomplicated
CPT/HCPCS: 74018; 80053; 83690; 85025; 99283

== ENCOUNTER → 2020-08-22 11:39 | Outpatient (BNVA) | payer MEDICARE, MEDICAID, SELFPAY ==
[2020-07-17 15:13] VITALS: BP 148/78; BMI 30.5
== END ==
PROVIDERS: PCP Nurse Practitioner; Visit Provider Nurse Practitioner
DX: E11.69 Type 2 diabetes mellitus with other specified complication (principal); K86.9 Disease of pancreas, unspecified
CPT/HCPCS: 81000

== ENCOUNTER 2020-09-29 14:03 | Emergency (ER) | payer MEDICARE, MEDICAID, SELFPAY ==
[2020-07-17 15:13] VITALS: BP 148/78; BMI 30.5
[2020-09-29 14:05] VITALS: BP 120/80; PULSE 89; RESP 16; TEMP 36.6; O2SAT 94; BMI 29.2
--- NOTE | 2020-09-29 14:15 | CT_ITS ---
WS: [id number] CT HEAD TECHNIQUE: Noncontrast CT of the head obtained from the skullbase to the vertex. CLINICAL INFORMATION: Symptoms of Acute Stroke COMPARISON: March 27, 2020 DLP: 731.[address] scans at [facility] use at least one of these dose optimization techniques: automat ed exposure control; mA and/or kV adjustment per patient size (includes targeted exams where dose is matched to clinical indication); or iterative reconstruction. FINDINGS: No evidence of intracranial hemorrhage or mass effect. Ventricular system and basal cisterns are martinez nt. Mild small vessel changes. No extra-axial fluid collections. No evidence of mass or mass effect. Normal garza-white differentiation. Paranasal sinuses and mastoid air cells are well aerated. .Normal visualized soft tissues. CT/CT head wo con* [id number] IMPRESSION: 1. No evidence of intracranial hemorrhage or mass effect. 2. Mild small vessel changes. No significant parenchymal volume loss. 3. No acute intracranial findings. Notified Daren Nguyen MD [facility] at 09/29/2020 3:20 PM.
--- NOTE | 2020-09-29 14:15 | ECG_ITS ---
[facility] Test Date: 2020-09-29 Pat Name: Brenna Francisco Department: Room: Gender: Female Senior Facilities Manager: : 1965 Requested By: Daren Nguyen I Order Number: [id number] Sydnee MD: Regina Carpio M.D. Measurements Intervals [place] Rate: 80 P: 124 MA: 139 QRS: 142 QRSD: 87 T: 138 QT: 366 QTc: 423 Interpretive Statements SINUS RHYTHM ARM LEADS REVERSED [INVERTED P AND QRS IN I] ATYPICAL ECG Compared to ECG 08/10/2020 23:52:25 No significant changes Electronically Signed On 09-30-2020 14:50:23 CDT by Regina Carpio M.D. [id number]
[2020-09-29 14:36] VITALS: BP 118/70; PULSE 80; RESP 20; O2SAT 93
[2020-09-29 15:01] LABS: Add Urine Microscopic? NO; Charge for UA Resulting for Rev
[2020-09-29 15:06] LABS: Bilirubin Urine Neg (Negative); Blood Urine Neg (Negative); Glucose Urine UA 4+ (Normal); Ketones Urine Negative (Negative); Leukocyte Esterase Urine Negative (Negative); Nitrate Urine Negative (Negative); Protein Urine Neg (Negative); Urine Appearance Clear (CLEAR); Urine Color Yellow (Yellow); Urobilinogen Urine Norm (Negative); pH Urine 5 (5-7)
[2020-09-29 15:11] LABS: Basophils # 0.1 10^3/uL (0.0-0.1); Basophils % 1.1 %; Eosinophils # 0.1 10^3/uL (0.0-0.8); Eosinophils % 1.4 %; Hematocrit 44.3 % (37.0-47.0); Hemoglobin 14.5 g/dL (11.5-15.3); Lymphocytes # 3.4 10^3/uL (0.8-4.8); Lymphocytes % 33.1 %; Mean Corpuscular HGB Conc 32.7 g/dL (30.0-36.0); Mean Corpuscular Hemoglobin 30.3 pg (28.0-34.0); Mean Corpuscular Volume 92.7 fL (81-99); Mean Platelet Volume 10.7 fL (7.4-10.4); Monocytes # 0.6 10^3/uL (0.2-0.9); Monocytes % 6.3 %; Neutrophils # 5.92 10^3/uL (1.8-7.7); Neutrophils % 57.8 %; Nucleated Red Blood Cells % 0 %; Platelet Count 267 10^3/cmm (130-400); Red Blood Count 4.78 10^6/uL (4.1-5.3); Red Cell Distribution Width 13.8 % (12.1-15.1); White Blood Count 10.2 10^3/uL (4.0-10.0)
[2020-09-29 15:15] LABS: Amphetamines Screen Urine Negative (Negative); Barbiturates Screen Urine Negative (Negative); Benzodiazepines Screen Urine Negative (Negative); Cocaine Screen Urine Negative (Negative); Opiate Screen Urine Negative (Negative); PCP Screen Urine Negative (Negative); THC Screen Urine Positive (Negative)
[2020-09-29 15:22] VITALS: PULSE 84; RESP 20; O2SAT 92
[2020-09-29 15:23] LABS: Alanine Aminotransferase 24 U/L (0-33); Albumin Level 3.9 g/dL (3.5-5.2); Alkaline Phosphatase 106 IU/L (35-105); Aspartate Amino Transferase 27 U/L (0-32); Blood Urea Nitrogen 18 mg/dL (6-20); Calcium 9.2 mg/dL (8.5-10.5); Carbon Dioxide 19 mmol/L (22-29); Chloride 105 mmol/L (98-107); Glomerular Filtration Rate 57.6 mL/min (90-130); Glucose 143 mg/dL (65-115); Osmolality Calculated 284 mOsm/kg (285-295); Sodium 135 mmol/L (136-145); Total Bilirubin 0.2 mg/dL (0.15-1.2); Total Protein 6.9 g/dL (6.6-8.7)
[2020-09-29 15:24] LABS: Anion Gap 15.3 (5-19); Potassium 4.3 mmol/L (3.5-5.1)
[2020-09-29 15:39] LABS: INR 0.97 (0.8-1.2)
[2020-09-29 16:25] VITALS: BP 101/66; PULSE 78; RESP 18; O2SAT 95
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
[2020-09-29 16:55] VITALS: BP 108/66; PULSE 73; RESP 19; O2SAT 93
[2020-09-29] MEDS: ketorolac 30 mg/mL INJ IVP (16:55)
[2020-09-29] MEDS: diphenhydrAMINE 50 mg/mL SDV 1mL 25 MG IVP (16:55)
[2020-09-29 17:47] VITALS: BP 127/81; PULSE 75; RESP 19; O2SAT 93
[2020-09-30 07:27] LABS: Glucose Point of Care 127 mg/dL (70-110)
== END 2020-09-29 17:48 | disposition home or self-care (01) ==
PROVIDERS: Emergency Provider Family Medicine; PCP Nurse Practitioner
DX: G43.909 Migraine, unspecified, not intractable, without status migrainosus (principal); Z79.82 Long term (current) use of aspirin; J44.9 Chronic obstructive pulmonary disease, unspecified; E11.9 Type 2 diabetes mellitus without complications; F17.210 Nicotine dependence, cigarettes, uncomplicated; Z79.899 Other long term (current) drug therapy
CPT/HCPCS: 36416; 70450; 80053; 80306; 81003; 82962; 85025; 85610; 85730; 93005; 96374; 96375; 99284; J1200; J1885

== ENCOUNTER → 2020-10-04 08:58 | Outpatient (BNVA) | payer MEDICARE, MEDICAID, SELFPAY ==
[2020-07-17 15:13] VITALS: BP 148/78; BMI 30.5
== END ==
PROVIDERS: PCP Nurse Practitioner; Visit Provider Nurse Practitioner
DX: F25.1 Schizoaffective disorder, depressive type (principal); F12.20 Cannabis dependence, uncomplicated; F33.2 Major depressive disorder, recurrent severe without psychotic features
CPT/HCPCS: 99214

== ENCOUNTER → 2020-10-26 09:45 | Outpatient (BNVA) | payer OTHER, MEDICAID, MEDICARE, SELFPAY ==
[2020-07-17 15:13] VITALS: BP 148/78; BMI 30.5
== END ==
PROVIDERS: PCP Nurse Practitioner; Visit Provider Nurse Practitioner
DX: E11.69 Type 2 diabetes mellitus with other specified complication (principal); K86.9 Disease of pancreas, unspecified
CPT/HCPCS: 80053; 83036

== ENCOUNTER 2020-10-30 07:48 | Outpatient (CLI) | payer MEDICARE, MEDICAID, SELFPAY ==
[2020-07-17 15:13] VITALS: BP 148/78; BMI 30.5
--- NOTE | 2020-10-30 08:13 | MR_ITS ---
WS: [id number] MRI HEAD WITH CONTRAST WITH ATTENTION TO THE INTERNAL AUDITORY CANALS TECHNIQUE: Sagittal T1, T2 axial, T2 axial flair, axial susceptibility weighted imaging, axial diffus ion weighted images, and coronal T2 images were obtained. Pre and post T1 axial and post T1 coronal i mages. ADC and FSPGR images. Post gadolinium images with attention to the internal auditory canals. A xial fiesta imaging. CLINICAL INFORMATION: SENSORINEURAL HEARING LOSS, BILATERAL, TINNITUS, BILATERAL COMPARISON: CT September 29, 2020 FINDINGS: No evidence of restricted diffusion to suggest acute ischemia. Ventricular system and basal cisterns are patent. Mild to moderate supratentorial periventricular white matter changes likely small vessel disease in a patient this age. Mild parenchymal volume loss. Normal posterior fossa. Normal vascular flow voids at the skull base. No extra-axial fluid collections. No evidence of mass or mass effect. P aranasal sinuses and mastoid air cells well aerated. A few tiny foci of hemosiderin in the supratentorial white matter consistent with chronic microhemorr hages. Proximal 7th and 8th cranial nerves are normal in appearance. Normal trigeminal nerve root ent ry zones. Normal optic chiasm and pituitary infundibulum. Normal cavernous sinuses and Meckel's cave. Temporal lobes and hippocampal formations are normal in appearance. No evidence of enhancing IAC or C P angle mass. Normal dural venous sinuses. Prominent left superior ophthalmic vein likely incidental. Normal cavernous sinus. No other significant findings. MR/MR iac's wo/w con* [id number] IMPRESSION: 1. No evidence of restricted diffusion to suggest acute ischemia. 2. Mild to moderate supratentorial periventricular white matter changes likely due to small vessel disease in a patient this age. Mild parenchymal volume los s. 3. Proximal 7th and 8th cranial nerves are normal in appearance. No evidence o f enhancing IAC or CP angle mass. 4. Normal trigeminal nerve root entry zones. 5. Paranasal sinuses and mastoid air cells well aerated. 6. A few tiny chronic punctate foci of hemosiderin in the supratentorial white matter consistent with tiny chronic microhemorrhages. Approximately 3 foci in total. 7. Normal optic chiasm and pituitary infundibulum.
[2020-10-30] MEDS: gadobenate dimeglumine 20 mL vial IV (09:10)
== END 2020-10-30 07:49 | disposition home or self-care (01) ==
PROVIDERS: PCP Nurse Practitioner; Visit Provider Otolaryngology
DX: H93.13 Tinnitus, bilateral (principal); H90.3 Sensorineural hearing loss, bilateral
CPT/HCPCS: 70553; A9577

== ENCOUNTER → 2020-11-01 11:19 | Outpatient (BNVA) | payer OTHER, MEDICAID, SELFPAY ==
[2020-07-17 15:13] VITALS: BP 148/78; BMI 30.5
== END ==
PROVIDERS: PCP Nurse Practitioner; Visit Provider Nurse Practitioner
DX: M79.642 Pain in left hand (principal)
CPT/HCPCS: 73130

== ENCOUNTER 2021-01-16 19:52 | Inpatient (IN) | payer MEDICARE, MEDICAID, SELFPAY ==
[2021-01-16 15:09] VITALS: BP 148/78; BMI 30.5
[2021-01-16 19:57] VITALS: BP 158/84; PULSE 66; RESP 20; TEMP 36.6; O2SAT 94
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
[2021-01-16 20:25] VITALS: BP 138/78; PULSE 82; RESP 16; TEMP 36.9; O2SAT 97
--- NOTE | 2021-01-16 20:25 | CTR_ITS ---
PROCEDURE INFORMATION: Exam: CT Head Without Contrast Exam date and time: 01/16/2021 8:25 PM Age: 55 years old Clinical indication: Pain; Headache; Prior surgery; Additional info: History of CVA TECHNIQUE: Imaging protocol: Computed tomography of the head without contrast. Radiation optimization: All CT scans at this facility use at least one of these dose optimization techniques: automated exposure control; mA and/or kV adjustment per patient size (includes targeted exams where dose is matched to clinical indication); or iterative reconstruction. COMPARISON: CT head wo con* [id number] 09/29/2020 3:05 PM RADIATION DOSE METRICS: Total DLP (mGy-cm): 725.6 FINDINGS: Brain: The sulci are within normal limits. Mild hypodensities in supratentorial periventricular and subcortical white matter, consistent with microangiopathy. No intracranial hemorrhage. Cerebral ventricles: No ventriculomegaly. Paranasal sinuses: Visualized sinuses are unremarkable. No fluid levels. Mastoid air cells: Visualized mastoid air cells are well aerated. Vasculature: No hyperdense artery. Bones/joints: Unremarkable. No acute fracture. Soft tissues: Unremarkable. CT/CT head wo con* [id number] IMPRESSION: 1. No acute intracranial abnormality. Radiation Dose CTDIVOL = (mGy): DLP = 725.6 (mGy-cm)
--- NOTE | 2021-01-16 20:25 | ECG_ITS ---
[facility] Test Date: 2021-01-16 Pat Name: Brenna Francisco Department: Room: Gender: Female Assisted Living Administrator: : 1965 Requested By: Isaac Romo Order Number: [id number] Sydnee MD: Regina Carpio M.D. Measurements Intervals [place] Rate: 54 P: 60 DC: 147 QRS: 24 QRSD: 92 T: 39 QT: 415 QTc: 393 Interpretive Statements SINUS BRADYCARDIA Compared to ECG 09/29/2020 14:21:42 Sinus rhythm no longer present Electronically Signed On 01-17-2021 22:42:28 CDT by Regina Carpio M.D. [email or web address]
[2021-01-16 20:33] LABS: Basophils # 0.1 10^3/uL (0.0-0.1); Basophils % 1.1 %; Eosinophils # 0.2 10^3/uL (0.0-0.8); Eosinophils % 2.1 %; Hemoglobin 14.1 g/dL (11.5-15.3); Lymphocytes # 4.1 10^3/uL (0.8-4.8); Lymphocytes % 42.3 %; Mean Corpuscular Hemoglobin 30.7 pg (28.0-34.0); Mean Corpuscular Volume 95.9 fl (81-99); Mean Platelet Volume 10.8 fL (7.4-10.4); Monocytes # 0.7 10^3/uL (0.2-0.9); Monocytes % 7.1 %; Neutrophils # 4.59 10^3/uL (1.8-7.7); Neutrophils % 47.2 %; Nucleated Red Blood Cells % 0 %; Platelet Count 232 10^3/cmm (130-400); Red Blood Count 4.59 10^6/uL (4.1-5.3); Red Cell Distribution Width 13.6 % (12.1-15.1); White Blood Count 9.7 10^3/uL (4.0-10.0)
[2021-01-16 20:39] LABS: Charge for UA Resulting for Rev
[2021-01-16 20:44] LABS: HCG Qualitative Urine. Negative (Negative)
[2021-01-16 20:52] LABS: Amphetamines Screen Urine Negative (Negative); Barbiturates Screen Urine Negative (Negative); Benzodiazepines Screen Urine Negative (Negative); Cocaine Screen Urine Negative (Negative); Opiate Screen Urine Negative (Negative); PCP Screen Urine Negative (Negative); THC Screen Urine Negative (Negative)
[2021-01-16 21:24] LABS: Alanine Aminotransferase 29 U/L (0-33); Albumin Level 3.9 g/dL (3.5-5.2); Alkaline Phosphatase 94 IU/L (35-105); Anion Gap 13.8 (5-19); Aspartate Amino Transferase 21 U/L (0-32); Blood Urea Nitrogen 11 mg/dL (6-20); Calcium 9.1 mg/dL (8.5-10.5); Carbon Dioxide 22 mmol/L (22-29); Chloride 107 mmol/L (98-107); Globulin 2.8 g/dL (1.3-4.6); Glomerular Filtration Rate 86.9 mL/min (90-130); Glucose 89 mg/dL (65-115); Osmolality Calculated 287 mOsm/kg (285-295); Potassium 3.8 mmol/L (3.5-5.1); Sodium 139 mmol/L (136-145); Total Bilirubin 0.3 mg/dL (0.15-1.2); Total Protein 6.7 g/dL (6.6-8.7)
[2021-01-16 21:28] LABS: Acetaminophen < 5.0 ug/mL (10-30); Alcohol Level < 10 mg/dL (0-10); Salicylate < 0.3 mg/dL (3-10)
[2021-01-16 21:33] VITALS: BP 138/88; PULSE 64; RESP 16; TEMP 36.6; O2SAT 98
[2021-01-16 21:34] LABS: Blood Urine Neg (Negative); Glucose Urine UA 4+ (Normal); Ketones Urine Negative (Negative); Nitrate Urine Negative (Negative); Protein Urine Neg (Negative); Urine Appearance SL Hazy (CLEAR); Urine Color Straw (Yellow); pH Urine 6 (5-7)
[2021-01-16 21:35] LABS: Add Urine Culture? Yes; Add Urine Microscopic? YES; Bacteria Urine 4+ /hpf; Bilirubin Urine Neg (Negative); Leukocyte Esterase Urine 1+ (Negative); Urobilinogen Urine Norm (Negative)
[2021-01-16 22:23] VITALS: RESP 18
[2021-01-16 22:32] VITALS: BP 109/75; PULSE 75; RESP 17; TEMP 36.6; O2SAT 96
[2021-01-17 06:00] VITALS: BP 127/82; PULSE 74; RESP 17; TEMP 36.6; O2SAT 94
[2021-01-17 07:03] LABS: Glucose Point of Care 169 mg/dL (70-110)
[2021-01-17 08:41] VITALS: PULSE 86; RESP 17; O2SAT 93
[2021-01-17] MEDS: BuSPIRONE 10 mg Tablet 15 MG PO ×2 (08:57→19:26)
[2021-01-17] MEDS: tizanidine 4 mg Tablet 2 MG PO ×2 (08:58→19:27)
[2021-01-17] MEDS: multivitamin therapeutic Tablet 1 TAB PO (08:58)
[2021-01-17] MEDS: PARoxetine 20 mg Tablet 30 MG PO (08:58)
[2021-01-17] MEDS: propranolol 20 mg Tablet PO ×2 (08:59→19:27)
[2021-01-17] MEDS: pantoprazole DR 40 mg Tablet PO (08:59)
[2021-01-17] MEDS: zonisamide 100 MG Capsule PO ×2 (08:59→21:57)
[2021-01-17] MEDS: aspirin 81 mg EC Tablet PO (08:59)
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
[2021-01-17 14:00] VITALS: BP 103/64; PULSE 65; RESP 18; TEMP 36.8; O2SAT 95
[2021-01-17 16:34] LABS: Glucose Point of Care 181 mg/dL (70-110)
[2021-01-17 20:21] VITALS: BP 109/64; PULSE 94; RESP 18; TEMP 36.1; O2SAT 96
[2021-01-17 21:24] VITALS: PULSE 67; RESP 16; O2SAT 92
[2021-01-17] MEDS: albuterol 8 gm MDI 2 PUFF INHALATION (21:24)
[2021-01-17] MEDS: trazodone 100 mg Tablet PO (21:53)
[2021-01-17] MEDS: ARIPiprazole 10 mg Tablet 20 MG PO (21:53)
[2021-01-17] MEDS: benztropine 1 mg Tablet PO (21:53)
[2021-01-17] MEDS: hyDROXYzine 25 mg Capsule 50 MG PO (21:54)
[2021-01-17 22:03] LABS: Glucose Point of Care 373 mg/dL (70-110)
[2021-01-17 23:19] VITALS: PULSE 79; O2SAT 96
--- NOTE | 2021-01-18 03:46 | PC.NURSE ---
Patient given Trazpdone 50mg PO, Visteril 50 mg PO at patient request for sleep and anxiety. meds were effective
[2021-01-18 06:00] VITALS: RESP 16
[2021-01-18 09:11] LABS: Glucose Point of Care 223 mg/dL (70-110)
[2021-01-18] MEDS: albuterol 8 gm MDI 2 PUFF INHALATION (09:56)
[2021-01-18 09:58] VITALS: PULSE 64; RESP 18; O2SAT 94
[2021-01-18] MEDS: PARoxetine 20 mg Tablet 30 MG PO (10:15)
[2021-01-18] MEDS: zonisamide 100 MG Capsule PO ×2 (10:15→21:30)
[2021-01-18] MEDS: aspirin 81 mg EC Tablet PO (10:16)
[2021-01-18] MEDS: tizanidine 4 mg Tablet 2 MG PO ×2 (10:16→17:57)
[2021-01-18] MEDS: BuSPIRONE 10 mg Tablet 15 MG PO ×2 (10:17→17:57)
[2021-01-18] MEDS: pantoprazole DR 40 mg Tablet PO (10:17)
[2021-01-18] MEDS: propranolol 20 mg Tablet PO ×2 (10:18→17:57)
[2021-01-18 11:25] LABS: Glucose Point of Care 149 mg/dL (70-110)
[2021-01-18 14:00] VITALS: TEMP 36.9
--- NOTE | 2021-01-18 15:24 | PM.NPN ---
Subjective NPU Subjective: Interval history: Patient presents today reporting that she is feeling okay. She reports that in general she is been doing fine but she is had a lot of stress. We discussed talking with her outpatient team to identify reasonable changes in the medication. seems very somnolent. Not the best historian today.. Mental Status Exam MSE Comments: This is an overweight versus obese white female with hospital scrubs on with limited grooming and eye contact. Notable food on face and hirsutism. No abnormal movements except for psychomotor retardation. Mostly cooperative with exam in mild distress. Speech was decreased rate and volume. Mood described as depressed, affect subdued. Thought process organized. Thought content: Patient denied suicidal or homicidal ideation, but had had some prior to hospitalization, there were no delusions reported or noted, she did endorse having auditory and visual hallucinations attention and concentration appear limited and memory was somewhat reliable but never formally tested. Alert and oriented x3. Insight and judgment appear limited impulse control appears limited. Vitals/I&O/Wt Last Vital Signs Temp 98.5 F 01/18/21 22:00 Pulse 79 01/18/21 22:00 Resp 18 01/18/21 22:00 BP 109/64 01/18/21 22:00 Pulse Ox 98 01/18/21 22:00 Data NPU : 01/16/21 20:18 01/16/21 20:18 Micro: Microbiology 01/16/21 20:35 Urine Culture - Preliminary Urine,Clean Catch Gram Negative Rods Microbiology 01/16/21 20:35 Urine,Clean Catch Urine Culture - Preliminary Gram Negative Rods A&P Additional A&P Information (1) Schizoaffective disorder, depressive type: (2) Cephalalgia: (3) Diabetes mellitus associated with pancreatic disease: (4) Essential (primary) hypertension: (5) Cannabis dependence, uncomplicated: This is a 55 year old female with a history of schizoafffective disorder, cannabis dependence, and fibromyalgia muscle pain who was admitted for worsening command hallucinations to kill herself. Recent stressors have exacerbated her schizoaffective disorder. RECOMMENDATION AND PLAN: 1. Continue current medication. Discussed the possibility of increasing Paxil versus Abilify will get collateral information before change. 2. Continue every 15 minute checks for safety. 3. Encourage individual, group and milieu therapies. 4. Encourage sober living treatment after discharge at the highest level of care to which he is willing to commit. Involuntary Hold Information 96 Hour Hold: 96 Hour Involuntary Admission: No Attestations NPU Medical Necessity Statement*: Psychiatric hospitalization is medically necessary to prevent access to lethal means, to reevaluate medication, and to coordinate a safe discharge. PLikely length of stay is 2-4 days. Coding Level of Care Code Acute Licensed Insurance Sales Agent for Lenny Winn
[2021-01-18] MEDS: acetaminophen 325 mg Tablet 650 MG PO (16:20)
[2021-01-18 16:42] LABS: Glucose Point of Care 172 mg/dL (70-110)
[2021-01-18] MEDS: OLANZapine 5 mg ODT PO (17:57)
[2021-01-18 19:58] VITALS: PULSE 79; RESP 18; O2SAT 98
[2021-01-18] MEDS: insulin lispro 100 unit/1 mL SUBCUT (21:22)
[2021-01-18] MEDS: benztropine 1 mg Tablet PO (21:29)
[2021-01-18] MEDS: ARIPiprazole 10 mg Tablet 20 MG PO (21:29)
[2021-01-18] MEDS: trazodone 50 mg Tablet PO (21:30)
[2021-01-18 22:00] VITALS: BP 109/64; PULSE 79; RESP 18; TEMP 36.9; O2SAT 98
--- NOTE | 2021-01-19 00:29 | PC.NURSE ---
PRN MEDIATIONS: PATIENT WAS GIVEN DESYREL 50MG PO. UPON REASSESSMENT MEDICATION WAS EFFECTIVE.
[2021-01-19 06:00] VITALS: BP 131/70; PULSE 78; RESP 17; TEMP 36.7; O2SAT 96
[2021-01-19 08:38] LABS: Glucose Point of Care 206 mg/dL (70-110)
[2021-01-19 08:53] VITALS: PULSE 87; RESP 18; O2SAT 96
[2021-01-19] MEDS: albuterol 8 gm MDI 2 PUFF INHALATION (09:26)
[2021-01-19] MEDS: BuSPIRONE 10 mg Tablet 15 MG PO ×2 (10:02→18:38)
[2021-01-19] MEDS: zonisamide 100 MG Capsule PO ×2 (10:03→21:00)
[2021-01-19] MEDS: pantoprazole DR 40 mg Tablet PO (10:03)
[2021-01-19] MEDS: aspirin 81 mg EC Tablet PO (10:03)
[2021-01-19] MEDS: multivitamin therapeutic Tablet 1 TAB PO (10:03)
[2021-01-19] MEDS: PARoxetine 20 mg Tablet 30 MG PO (10:03)
[2021-01-19] MEDS: propranolol 20 mg Tablet PO ×2 (10:03→18:38)
[2021-01-19] MEDS: tizanidine 4 mg Tablet 2 MG PO ×2 (10:04→18:38)
--- NOTE | 2021-01-19 11:00 | PM.NPN ---
Subjective NPU Subjective: Interval history: Patient presents today reporting that she is doing a little better. She was a better historian today able to articulate some of the challenges that face there. We discussed the risk benefits and alternatives of increasing her Paxil to 40 mg daily and she understood agreed proceed as documented in this note. She began discussing feeling safer overall and we agreed to monitor her for at least another day the possibility of discharge tomorrow if she continues to show improvement. We discussed concerns about adherence to medication and she does acknowledge having some missed doses but she denies that that is the standard and reports that her outpatient team helps her keeping straight. Mental Status Exam MSE Comments: This is an overweight versus obese white female with hospital scrubs on with limited grooming and eye contact. Notable food on face and hirsutism. No abnormal movements except for resolving psychomotor retardation. Mostly cooperative with exam in no acute distress. Speech was more normal rate and volume. Mood described as a little better, affect congruent. Thought process organized. Thought content: Patient denied suicidal or homicidal ideation, there were no delusions reported or noted, she did endorse limited auditory and visual hallucinations. Attention and concentration appear limited and memory was somewhat reliable but never formally tested. Alert and oriented x3. Insight and judgment appear fair, impulse control appears limited. Vitals/I&O/Wt Last Vital Signs Temp 98.1 F 01/19/21 06:00 Pulse 87 01/19/21 08:53 Resp 18 01/19/21 08:53 BP 131/70 01/19/21 06:00 Pulse Ox 96 01/19/21 08:53 Data NPU : 01/16/21 20:18 01/16/21 20:18 Micro: Microbiology 01/16/21 20:35 Urine Culture - Preliminary Urine,Clean Catch Gram Negative Rods Microbiology 01/16/21 20:35 Urine,Clean Catch Urine Culture - Preliminary Gram Negative Rods A&P Additional A&P Information (1) Schizoaffective disorder, depressive type: (2) Cephalalgia: (3) Diabetes mellitus associated with pancreatic disease: (4) Essential (primary) hypertension: (5) Cannabis dependence, uncomplicated: This is a 55 year old female with a history of schizoafffective disorder, cannabis dependence, and fibromyalgia muscle pain who was admitted for worsening command hallucinations to kill herself. Recent stressors have exacerbated her schizoaffective disorder. RECOMMENDATION AND PLAN: 1. Continue current medication. Increased Paxil to 40 mg p.o. every morning 2. Continue every 15 minute checks for safety. 3. Encourage individual, group and milieu therapies. 4. Encourage sober living treatment after discharge at the highest level of care to which he is willing to commit. Involuntary Hold Information 96 Hour Hold: 96 Hour Involuntary Admission: No Attestations NPU Medical Necessity Statement*: Psychiatric hospitalization is medically necessary to prevent access to lethal means, to reevaluate medication, and to coordinate a safe discharge. Likely length of stay is 1-3 days. Coding Level of Care Code Acute Material Handler for Lenny Winn
[2021-01-19 11:36] LABS: Glucose Point of Care 172 mg/dL (70-110)
--- NOTE | 2021-01-19 12:40 | DCPLANNER ---
IMM completed with pt and copy of rights given to pt.
[2021-01-19 14:00] VITALS: BP 97/57; PULSE 59; RESP 20; TEMP 36.8; O2SAT 97
--- NOTE | 2021-01-19 15:18 | PC.RESP ---
SMOKING CESSATION INFORMATION SENT TO PATIENT.
[2021-01-19] MEDS: acetaminophen 325 mg Tablet 650 MG PO (16:01)
[2021-01-19 16:45] LABS: Glucose Point of Care 184 mg/dL (70-110)
[2021-01-19 20:20] VITALS: RESP 16; O2SAT 98
[2021-01-19 20:58] LABS: Glucose Point of Care 245 mg/dL (70-110)
[2021-01-19] MEDS: benztropine 1 mg Tablet PO (20:59)
[2021-01-19] MEDS: ARIPiprazole 10 mg Tablet 20 MG PO (20:59)
[2021-01-19] MEDS: insulin lispro 100 unit/1 mL 8 UNIT SUBCUT (21:37)
[2021-01-19 22:00] VITALS: BP 92/55; PULSE 72; RESP 16; TEMP 36.6; O2SAT 97
[2021-01-20 06:00] VITALS: BP 103/62; BP 92/55; PULSE 64; PULSE 72; RESP 16; RESP 18; TEMP 36.6; O2SAT 97
[2021-01-20 06:33] LABS: Glucose Point of Care 133 mg/dL (70-110)
[2021-01-20] MEDS: aspirin 81 mg EC Tablet PO (09:23)
[2021-01-20] MEDS: BuSPIRONE 10 mg Tablet 15 MG PO (09:23)
[2021-01-20] MEDS: propranolol 20 mg Tablet PO (09:23)
[2021-01-20] MEDS: tizanidine 4 mg Tablet 2 MG PO (09:23)
[2021-01-20] MEDS: multivitamin therapeutic Tablet 1 TAB PO (09:24)
[2021-01-20] MEDS: zonisamide 100 MG Capsule PO (09:25)
[2021-01-20] MEDS: pantoprazole DR 40 mg Tablet PO (09:25)
[2021-01-20] MEDS: PARoxetine 20 mg Tablet 40 MG PO (09:26)
[2021-01-20] MEDS: albuterol 8 gm MDI 2 PUFF INHALATION (09:45)
[2021-01-20 09:47] VITALS: PULSE 64; RESP 18; O2SAT 97
[2021-01-20 09:51] LABS: Add Urine Microscopic? NO; Charge for UA Resulting for Rev
[2021-01-20 10:01] LABS: Bilirubin Urine Neg (Negative); Blood Urine Neg (Negative); Glucose Urine UA Norm (Normal); Ketones Urine Negative (Negative); Leukocyte Esterase Urine Negative (Negative); Nitrate Urine Negative (Negative); Protein Urine Neg (Negative); Specific Gravity, Urine 1.005 (1.005-1.030); Urine Appearance Clear (CLEAR); Urine Color Yellow (Yellow); Urobilinogen Urine Norm (Negative); pH Urine 7 (5-7)
--- NOTE | 2021-01-20 10:33 | P.DS_ITS ---
Diagnoses at Discharge Discharge Diagnosis (1) Schizoaffective disorder, depressive type: Status: Chronic (2) Cephalalgia: Status: Chronic (3) 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 (4) Essential (primary) hypertension: Status: Chronic (5) Cannabis dependence, uncomplicated: Status: Suspected Reason for Visit Reason for Visit: SI Brief History: History of Present Illness Brenna Francisco is a 55 year old female with a history of schizoafffective disorder, cannibis dependence, adn fibromyalgia muscle pain who was admitted for worsening command hallucinations to kill herself. The ED note states: HPI Narrative: Ms. Francisco is a 55-year-old lady with complex past psychiatric history presents emergency department due to SI and auditory hallucinations. She reports a poor memory which has been longstanding for her. She thinks that she always hears voices however often times they are in the background. When her psychiatric disorder worsens they become more prominent. She endorses command hallucinations to kill her self. She does have a suicide attempt in her history by strangulation. She has not acted on these thoughts/commands however feels that she is getting worse. She otherwise denies medical complaints. No other specific exacerbating relieving factors identified. She reports compliance with her medication regimen. The patient says she came to the hospital because the voices she hears began to tell her to kill herself. The voices had worsened to the point where she was considering wrapping a cord around my neck and slowly fading away. She says she also sometimes and feels ants crawling on her. She believes that the voices have gotten worse because of the chaos in her home. She says her great niece, her great niece's , and their son has been living at their house since August or September. This is been quite stressful for her. She anticipates they will leave in the next few days. She also says that a number of her cats have gotten sick and , about 5 or 6 of them. This has left her depressed as well. The patient receives services through the [facility]. Arabella Fajardo is her prescriber and her director clinical data's name is Crystal, although Crystal will be leaving soon. This is likely an additional source of stress. The patient has had previous psychiatric hospitalizations and she says they are too numerous to count. The patient says she has about 1 beer per week or a small glass of MD 2020. She says she smokes marijuana nightly to help her sleep. She says that her marijuana card should be in the mail, but she has not received it yet. She says she smokes 1 to 3 packs of cigarettes per day, even though she has COPD. She says that she never smokes while she is on oxygen. We had a conversation about those risks, and the patient is well aware of those dangers. Psychiatric history: As above. Substance use history: As above. Family history: Patient is not familiar with her family history. Psychosocial history: She says she was born in [place] and attended high school in [place]. 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 She has been to her cousin her current for 4 years and they have been together for 13 years. She was once before and has no children. She has been on disability since 1996 for her schizoaffective disorder. Legal history: No legal difficulties. Medical history: The patient says she has COPD, migraine headaches, and diabetes mellitus. She also says I have severe memory loss ?little blood or blood vessels popping in my brain. The note from her director clinical data is included to provide additional context: Hi Lo Driver (CSS) traveled from [facility] to clients home in [facility]. Client stated upon arrival that she has still been stressed out over the having to deal with the dogs digging under the fence which has caused the other two dogs to escape as well. I will fix one hole and they will turn around and dig another. Client also stated that she will be checking herself in to the stress unit (NPU) today but will be doing it on her terms so t he others won't know about it. client stated that she decided to have Ricky ([id number]) come and pick her up for her to run what errands she needs to get done completed and then she will be calling an ambulance to come and get her and take her to [facility]. client stated that it has gotten so bad that Carolyn, Lorena and Tito are driving her crazy and she wants them out of the house as of yesterday. I know that they are the main cause of my stress and me wanting to go on a mental vacation. I want them to leave and they won't leave. client also stated that she feels that her medication is not quite right either. CSS asked client about her depression and client stated that she really hasn't had any change since last week. Some days are still better than others, but states that her health as a lot to do with it. client stated that she doesn't want to eat nor take her medication. Client stated that she had a dream last night that she had hung herself in front of her nephews bedroom. CSS asked client about her anxiety and client stated that her anxiety is overwhelming right now. client stated that having to deal with Isidra and the others has really took a toll on her and she can't handle them being there at the house anymore. I am hoping that Dony tells them to leave while I am gone. Tito keeps eating us out of the home and we have no food in the house. I will not spend my food stamps until they leave because we will not see one daxa of it if they know that there is food in the house. Client stated that she has been spending her morning outside since she had got up this morning just to stay away from them. 1a) Client continues to remain medication compliant but states that she has not taken her medication for today nor had she taken it last night. Client admitted that she doesn't want to take her medicine and knows that she has to but just doesn't want to do it. [facility] asked client if she would take it for her because the NPU will have her take her medicine anyway and client stated that she would. 1b) Client continues to use her coping skills as needed and states that she has been spending a lot of time in her bedroom. I will turn my music up to drown out the noise or I will spend most of the day talking with my niece Alison. [facility] informed the client that she would be getting a new director clinical data and explained to client that the office was making some changes to the [facility] clientele. [facility] explained to client that she was being moved out of the [facility] and asked if it would be okay for her to have the new CSS tag along for next weeks session. Client stated that that would be totally fine. Client also let [facility] know that once she starts going back to [facility] that she will need to move her sessions back to Wednesdays due to wanting to attend [facility] on Tuesdays and . I just really need to get away from here during the week and I feel that if I can attend [facility] again, it will help with the anxiety and I won't feel like I am going crazy. Being around others in a different atmosphere I feel will be good for me. Client did state that she had almost called [facility] last night because things had gotten so bad. Client stated that she had gotten so stressed that she had done some impulse buying over the internet and has left them with only $47 in the checking. I haven't told Dony yet because I know he will be upset with me; I know I wasn't suppose to go and buy things, but I felt like I had no other choice at the time. Client also stated that she has had a steady migraine from the past three or so months. client stated that it has been going on since September or October and it has gotten so bad that she will wake up with a migraine and will go to bed with a migraine. Client stated that she has upset several people especially Dony because she will try and say one thing but it comes out as something else and then she will get defensive because she feels she is being attacked for what she had said. I think that I say one thing but I end up saying something else and I guess I am not understanding as to why no one is understanding me. client stated that she doesn't know if her medications are off or if it is the blood vessels in/on her brain that are popping causing the outburst and causing her to snap. I am hoping that when I check myself in that they can possibly figure out if my medication is not set right or something. My neurology appointment is not until March 16, but I really need some answers because I really want to know what all is going on with my head. I can't take much more of this. Completes Objectives and Tasks: With Delay Action Plan: client stated that her plan is to check herself into the NPU today in hopes that they can help her with what is going on. I really need a mental vacation from everything right now. [facility] Return Plan: [facility] return plan is to meet with client in one week to introduce her to her new CSS that will be taking over. Client Response: Client stated I will see you next week and I will call and let you know if I need to change our session from Friday to Friday. Hospital Course Hospital Course She slowly acclimated to the individual, group and milieu therapies provided. Continue her home medication and increased her Paxil to 40 mg p.o. every morning to assist with her depression. She showed modest improvement. She was able to contract for safety prior to discharge. During the hospitalization, patient had routine laboratory studies which were within normal limits except for few outliers. Additionally there was a general medical evaluation which was also within normal limits and revealed no new acute processes. Discharge Summary: At the time of discharge, patient denied psychosis or lethality. Mood and anxiety were well managed. Patient endorsed a plan to avoid all drugs of abuse and follow-up with the aftercare recommendations of the treatment team. Patient was evaluated and deemed to be absent credible lethality, and had achieved the maximum benefit from an inpatient hospitalization, so was discharged. Involuntary Hold Information 96 Hour Hold: 96 Hour Involuntary Admission: No Mental Status Exam MSE Comments: This is an overweight versus obese white female with hospital scrubs on with limited grooming and eye contact. Notable food on face and hirsutism. No abnormal movements except for resolving psychomotor retardation. Mostly cooperative with exam in no acute distress. Speech was more normal rate and volume. Mood described as better, affect congruent. Thought process organized. Thought content: Patient denied suicidal or homicidal ideation, there were no delusions reported or noted, she did endorse limited auditory and visual hallucinations. Attention and concentration appear limited and memory was somewhat reliable but never formally tested. Alert and oriented x3. Insight and judgment appear fair, impulse control appears limited. Discharge Data Data Completed and Pending: Completed Studies During Hospitalization Category Date Time Status CT head wo con* 7 0450 Urgent Cat Scan 01/16/21 20:25 Completed Labs from last 24 hours 01/20/21 01/20/21 01/19/21 09:45 06:06 20:53 POC Glucose 133 H 245 H Urine Color Yellow Urine Appearance Clear Urine pH 7 Ur Specific Gravit y 1.005 Urine Protein Neg Urine Glucose (UA) Norm Urine Ketones Negative Urine Blood Neg Urine Nitrate Negative Urine Bilirubin Neg Urine Urobilinogen Norm Ur Leukocyte Marisa ase Negative 01/19/21 01/19/21 16:28 11:31 POC Glucose 184 H 172 H Urine Color Urine Appearance Urine pH Ur Specific Gravit y Urine Protein Urine Glucose (UA) Urine Ketones Urine Blood Urine Nitrate Urine Bilirubin Urine Urobilinogen Ur Leukocyte Marisa ase Vitals: Last Vital Signs Temp 97.9 F 01/20/21 06:00 Pulse 64 01/20/21 09:47 Resp 18 01/20/21 09:47 BP 103/62 01/20/21 06:00 Pulse Ox 97 01/20/21 09:47 Discharge Plan Discharge Patient Disposition: Home Condition: Stable Prescriptions: New paroxetine HCl 20 mg Tablet 40 mg PO DAILY 30 Days Qty: 30 RF: 1 Continued multivitamin Tablet 2 tab PO DAILY RF: 0 diclofenac sodium [Voltaren] 1 % gel 2 g topical QID Qty: 100 RF: 2 albuterol sulfate [ProAir HFA] 90 mcg/actuation HFA aerosol inhaler 2 puff INHALATION Q6H PRN (Reason: Shortness Of Breath) Qty: 18 RF: 1 budesonide-formoterol [Symbicort] 160-4.5 mcg/actuation HFA aerosol inhaler 2 puff inhalation Q12H Qty: 30.6 RF: 1 Jardiance 25 mg tablet 25 mg PO DAILY@0900 Qty: 90 RF: 1 omeprazole 40 mg capsule,delayed release(DR/EC) 40 mg PO DAILY@0900 Qty: 90 RF: 1 propranolol 20 mg tablet 20 mg PO BID Qty: 180 RF: 1 tizanidine 2 mg tablet 2 mg PO BID Qty: 180 RF: 1 zonisamide 100 mg capsule 100 mg PO BID@0800,2100 Qty: 180 RF: 1 aripiprazole [Abilify] 20 mg tablet 20 mg PO DAILY@2100 Qty: 90 RF: 0 benztropine 1 mg tablet 1 mg PO BEDTIME@2100 Qty: 90 RF: 0 buspirone 15 mg tablet 15 mg PO BID Qty: 180 RF: 0 trazodone 100 mg tablet 100 mg PO .HS PRN (Reason: insomnia) Qty: 90 RF: 0 quetiapine [Seroquel] 25 mg tablet 25 mg PO .HS PRN (Reason: anxiety/agitation) Qty: 90 RF: 0 (DME) oxygen concentrator See Rx Instructions .Route .MEDSUPPLY Qty: 1 RF: 0 Aspirin Low Dose 81 mg Tablet,Delayed Release (Dr/Ec) 81 mg PO DAILY@0900 RF: 0 Discontinued paroxetine HCl 30 mg tablet 30 mg PO DAILY Qty: 90 RF: 0 Discharge Orders: Discharge Order (Routine); Ordered 01/20/21 Ordered By: Jay Pitt Referrals: WILLIAN [Other] Rachael Jordan APRN [Nurse Practitioner] - 02/08/21 4:00 pm (Over the phone) Discharge Diet: Diabetic Discharge Activity: Resume usual activity Patient Instructions: Opioid Safety Discharge Attestations NPU Time Spent in Discharge Care*: less than 30 min Specific Discharge Activities: Specific discharge activities: educating patient, discussing with caser up/social workers/dc planners, documenting/other paperwork and evaluating patient/reviewing data Status at Discharge: Cognitive status at discharge: cognitively intact , Behavioral status at discharge: cooperative , Coding Level of Care Code Acute [facility] DC note Diagnoses Schizoaffective disorder, depressive type F25.1 Cephalalgia R51.9 Diabetes mellitus associated with pancreatic disease E11.69; K86.9 Essential (primary) hypertension I10 Cannabis dependence, uncomplicated F12.20
[2021-01-20 10:52] LABS: Glucose Point of Care 157 mg/dL (70-110)
[2021-01-20] MEDS: insulin lispro 100 unit/1 mL 8 UNIT SUBCUT (10:59)
[2021-01-20 14:00] VITALS: BP 94/57; PULSE 70; RESP 18; TEMP 36.9; O2SAT 93
--- NOTE | 2021-01-25 10:37 | PC.NURSE ---
HOME MEDS SENT WITH JASIEL Faustin (MAINTENANCE ELECTRICIAN) PER PT REQUEST. PT CALLED UNIT, SPOKE TO FATOU, ETHYLBENZENE CONVERTER OPERATOR, GAVE VERBAL CONSENT THAT WE COULD GIVE JASIEL THE MEDICATIONS TO RETURN HOME TO [place].
== END 2021-01-20 14:40 | disposition home or self-care (01) | DRG 885 ==
LOC: ER 20:19 → NP 22:07
PROVIDERS: Psychiatry & Neurology Psychiatry; Admitting Provider Psychiatry & Neurology Child & Adolescent Psychiatry; Emergency Provider Emergency Medicine; PCP Nurse Practitioner; Visit Provider Psychiatry & Neurology Child & Adolescent Psychiatry
DX: F25.1 Schizoaffective disorder, depressive type (principal); R45.851 Suicidal ideations; F12.20 Cannabis dependence, uncomplicated; I10 Essential (primary) hypertension; K86.9 Disease of pancreas, unspecified; E08.9 Diabetes mellitus due to underlying condition without complications; M79.7 Fibromyalgia
CPT/HCPCS: 36416; 70450; 80053; 80306; 80307; 81001; 81003; 81025; 82962; 85025; 87077; 87086; 87186; 93005; 94640; 96372; 97165; 99285; J1815; J3535

== ENCOUNTER → 2021-02-14 11:42 | Outpatient (BNVA) | payer OTHER, MEDICAID, SELFPAY ==
[2021-01-22 14:28] VITALS: BP 148/78; BMI 30.5
== END ==
PROVIDERS: PCP Nurse Practitioner; Visit Provider Nurse Practitioner
DX: E11.69 Type 2 diabetes mellitus with other specified complication (principal); K86.9 Disease of pancreas, unspecified
CPT/HCPCS: 80053; 80061; 81000; 83036

== ENCOUNTER 2021-03-26 14:23 | Inpatient (IN) | payer MEDICARE, MEDICAID, SELFPAY ==
[2021-03-14 08:18] VITALS: BP 148/78; BMI 30.5
[2021-03-26 14:29] VITALS: BP 114/72; PULSE 82; RESP 17; TEMP 37.2; O2SAT 93; BMI 29.7
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
[2021-03-26 14:45] VITALS: BP 114/72; PULSE 82; RESP 18; O2SAT 93
[2021-03-26 14:51] LABS: Basophils # 0.1 10^3/uL (0.0-0.1); Basophils % 1.2 %; Eosinophils # 0.3 10^3/uL (0.0-0.8); Eosinophils % 2.3 %; Hematocrit 45.6 % (37.0-47.0); Hemoglobin 14.7 g/dL (11.5-15.3); Lymphocytes # 3.6 10^3/uL (0.8-4.8); Lymphocytes % 33.7 %; Mean Corpuscular HGB Conc 32.2 g/dL (30.0-36.0); Mean Corpuscular Hemoglobin 30.9 pg (28.0-34.0); Mean Platelet Volume 10.8 fL (7.4-10.4); Monocytes # 0.7 10^3/uL (0.2-0.9); Neutrophils % 56.4 %; Nucleated Red Blood Cells % 0 %; Platelet Count 256 10^3/cmm (130-400); Red Blood Count 4.75 10^6/uL (4.1-5.3); Red Cell Distribution Width 13.9 % (12.1-15.1); White Blood Count 10.8 10^3/uL (4.0-10.0)
--- NOTE | 2021-03-26 14:53 | PC.NURSE ---
Pt being monitor in a espinoza bed. No SI rooms available in the ER. Pt cooperative , no signs of self harm noted. Continue to monitor at bedside by RN.
--- NOTE | 2021-03-26 15:21 | PC.NURSE ---
Resting on right lateral side. NO acute changes or SI actions
[2021-03-26 15:22] LABS: Alanine Aminotransferase 23 U/L (0-33); Albumin Level 4.1 g/dL (3.5-5.2); Alkaline Phosphatase 105 IU/L (35-105); Aspartate Amino Transferase 19 U/L (0-32); Blood Urea Nitrogen 19 mg/dL (6-20); Calcium 8.8 mg/dL (8.5-10.5); Carbon Dioxide 24 mmol/L (22-29); Chloride 106 mmol/L (98-107); Globulin 2.6 g/dL (1.3-4.6); Glucose 120 mg/dL (65-115); Osmolality Calculated 289 mOsm/kg (285-295); Sodium 138 mmol/L (136-145); Total Bilirubin 0.2 mg/dL (0.15-1.2); Total Protein 6.7 g/dL (6.6-8.7)
[2021-03-26 15:24] LABS: Acetaminophen < 5.0 ug/mL (10-30); Alcohol Level < 10 mg/dL (0-10); Salicylate < 0.3 mg/dL (3-10)
[2021-03-26 15:25] LABS: Anion Gap 12.1 (5-19); Potassium 4.1 mmol/L (3.5-5.1)
[2021-03-26 15:46] LABS: Amphetamines Screen Urine Negative (Negative); Barbiturates Screen Urine Negative (Negative); Benzodiazepines Screen Urine Negative (Negative); Cocaine Screen Urine Negative (Negative); Opiate Screen Urine Negative (Negative); PCP Screen Urine Negative (Negative); THC Screen Urine Positive (Negative)
[2021-03-26] MEDS: ketorolac 60 mg/2 mL INJ IM (16:52)
[2021-03-26] MEDS: promethazine 25 mg/mL SDV 1 mL IM (16:52)
[2021-03-26 16:56] VITALS: BP 112/70; PULSE 76; RESP 17; O2SAT 93
--- NOTE | 2021-03-26 20:45 | PC.NURSE ---
Admission- Patient is a 55-year-old female presents to ED today with complaint of suicidal ideations/auditory hallucinations telling her to kill herself. Patient tells me symptoms of been present over the past 3 weeks. She does have a history of schizophrenia. Patient tells me she does have previous suicide attempts. She cannot remember all of her psychiatric medications but believes she is on Abilify, trazodone, and BuSpar. She states she has a medication provider at [facility]. She reports occasional marijuana use but no other drug or alcohol use. MD complaint: suicidal ideation Patient calm and cooperative upon admission. Endorses AH that tell her to hurt self. Passive SI but contracts for safety. Reports being diabetic but not on Insulin and has not been checking her sugars. Reports using O2 to sleep at night at home but that she will be ok without it. Is A&OX4. Reports only using THC when she has a migraine. Last use yesterday. Unsure of meds and is unable to confirm a list. States we will need to confirm it with [facility] tomorrow.
[2021-03-26 21:32] VITALS: BP 103/66; PULSE 63; RESP 17; TEMP 36.6; O2SAT 99
[2021-03-27 05:56] VITALS: RESP 16
[2021-03-27 06:50] LABS: Glucose Point of Care 142 mg/dL (70-110)
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
--- NOTE | 2021-03-27 13:08 | NPU.GN ---
[facility] Group Topic: Bozena Elizalde General Mood of Group: Brenna did not attend group today as she was in pain and wanted to sleep.
[2021-03-27 14:00] VITALS: BP 130/75; PULSE 81; RESP 17; TEMP 36.9; O2SAT 95
[2021-03-27] MEDS: zonisamide 100 MG Capsule PO (17:06)
[2021-03-27] MEDS: OLANZapine 5 mg ODT PO (17:07)
[2021-03-27] MEDS: propranolol 20 mg Tablet PO (17:07)
[2021-03-27] MEDS: tizanidine 4 mg Tablet 2 MG PO (17:07)
--- NOTE | 2021-03-27 17:07 | PC.NURSE ---
Pt c/o increasing voices and anxiety. Pt given Zydis 5mg PO without complication.
[2021-03-27] MEDS: acetaminophen 325 mg Tablet 650 MG PO (18:06)
[2021-03-27 19:35] VITALS: BP 118/67; PULSE 62; RESP 15; TEMP 36.7; O2SAT 99
[2021-03-27 19:53] LABS: Glucose Point of Care 181 mg/dL (70-110)
[2021-03-27] MEDS: trazodone 100 mg Tablet PO (20:12)
[2021-03-28] MEDS: acetaminophen 325 mg Tablet 650 MG PO (04:09)
[2021-03-28 06:00] VITALS: BP 116/68; PULSE 73; RESP 15; TEMP 37.1; O2SAT 97
[2021-03-28 06:29] LABS: Glucose Point of Care 186 mg/dL (70-110)
[2021-03-28] MEDS: ARIPiprazole 10 mg Tablet 20 MG PO (08:39)
[2021-03-28] MEDS: propranolol 20 mg Tablet PO ×2 (08:39→17:35)
[2021-03-28] MEDS: benztropine 1 mg Tablet PO ×2 (08:39→17:34)
[2021-03-28] MEDS: PARoxetine 20 mg Tablet 30 MG PO (08:40)
[2021-03-28] MEDS: tizanidine 4 mg Tablet 2 MG PO ×2 (08:40→17:35)
[2021-03-28] MEDS: zonisamide 100 MG Capsule PO ×2 (08:40→17:35)
--- NOTE | 2021-03-28 11:02 | NPU.GN ---
[facility] Topic:Checkers Checkers General Mood of Group: Lashay did not attend group she was sleeping.
--- NOTE | 2021-03-28 11:47 | W.PM.NPUPNS ---
Subjective NPU Subjective: Interval history: Patient presents today reporting that she is feeling a little neglected significant energy on the unit and someone required intervention including IM medication and she was somewhat intimidated by that individual. She also felt all the energy shifted toward that person and left out. We discussed the risk-benefit alternatives of increasing the Paxil to 40 mg p.o. daily and she understood and agreed proceed as documented in his note. We discussed the fact that a new doctor would be here tomorrow. Mental Status Exam MSE Comments: This is an overweight versus obese white female with hospital scrubs on with limited grooming and eye contact. Poor/absent dentition. No abnormal movements except for psychomotor retardation. Mostly cooperative with exam in no acute distress. Speech was decreased rate and volume. Mood described as depressed, affect congruent. Thought process organized. Thought content: Patient denied suicidal or homicidal ideation, there were no delusions reported or noted, she did endorse limited auditory and visual hallucinations. Attention and concentration appear limited and memory was somewhat reliable but none were formally tested. Alert and oriented x3. Insight and judgment appear fair, impulse control appears limited. Vitals/I&O/Wt Last Vital Signs Temp 98.7 F 03/28/21 06:00 Pulse 73 03/28/21 06:00 Resp 15 03/28/21 06:00 BP 116/68 03/28/21 06:00 Pulse Ox 97 03/28/21 06:00 Data NPU : 03/26/21 14:43 03/26/21 14:43 A&P Additional A&P Information (1) Suicidal ideation: (2) Auditory hallucinations: (3) History of command hallucinations: (4) Cephalalgia: (5) Diabetes mellitus associated with pancreatic disease: (6) Folliculitis: (7) Decreased movement of upper extremity: (8) Decreased sensation of hand and arm: (9) Schizoaffective disorder, depressive type: (10) Cannabis dependence, uncomplicated: (11) COPD (chronic obstructive pulmonary disease): Additional A&P Information (1) Schizoaffective disorder, depressive type: (2) Cephalalgia: (3) Diabetes mellitus associated with pancreatic disease: (4) Essential (primary) hypertension: (5) Cannabis dependence, uncomplicated: This is a 55 year old female with a history of schizoafffective disorder, cannabis dependence, and fibromyalgia muscle pain who was admitted for worsening command hallucinations to kill herself. Recent stressors have exacerbated her schizoaffective disorder. RECOMMENDATION AND PLAN: 1. Continue current medication. Increase Paxil to 40 mg p.o. every morning. 2. Continue every 15 minute checks for safety. 3. Encourage individual, group and milieu therapies. 4. Encourage sober living treatment after discharge at the highest level of care to which he is willing to commit. 5. We will connect with outpatient team about increasing Abilify versus switching. Involuntary Hold Information 96 Hour Hold: 96 Hour Involuntary Admission: No Attestations NPU Medical Necessity Statement*: Inpatient hospitalization is medically necessary and the clinically appropriate intervention at this time. We will evaluate for medication changes and safety for discharge. Likely length of stay is 2-4 days. Coding Level of Care Code Acute Water Treatment Specialist for Lenny Winn
[2021-03-28 14:00] VITALS: BP 148/84; PULSE 107; RESP 26; O2SAT 95
[2021-03-28] MEDS: OLANZapine 5 mg ODT PO (14:35)
[2021-03-28] MEDS: hyDROXYzine 25 mg Capsule 50 MG PO ×2 (17:34→20:18)
[2021-03-28 19:38] VITALS: BP 89/48; PULSE 64; RESP 16; O2SAT 91
[2021-03-28 19:46] VITALS: PULSE 65; O2SAT 93
[2021-03-28 19:47] VITALS: PULSE 65; RESP 18; O2SAT 93
[2021-03-28] MEDS: trazodone 100 mg Tablet PO (20:18)
[2021-03-28 20:32] LABS: Glucose Point of Care 318 mg/dL (70-110)
[2021-03-28] MEDS: insulin lispro 100 unit/1 mL SUBCUT (20:58)
[2021-03-28 23:03] LABS: Glucose Point of Care > 600 mg/dL (70-110)
[2021-03-29] VITALS (8 sets, daily range): BP systolic 84–120; BP diastolic 51–78; PULSE 61–77; RESP 15–18; TEMP 36.5–36.8; O2SAT 91–96
[2021-03-29 06:33] LABS: Glucose Point of Care 162 mg/dL (70-110)
[2021-03-29] MEDS: ARIPiprazole 10 mg Tablet 20 MG PO (08:39)
[2021-03-29] MEDS: zonisamide 100 MG Capsule PO ×2 (08:39→17:17)
[2021-03-29] MEDS: PARoxetine 20 mg Tablet 40 MG PO (08:39)
[2021-03-29] MEDS: tizanidine 4 mg Tablet 2 MG PO ×2 (08:40→17:17)
[2021-03-29] MEDS: pantoprazole DR 40 mg Tablet PO (08:40)
[2021-03-29] MEDS: benztropine 1 mg Tablet PO (08:40)
[2021-03-29] MEDS: propranolol 20 mg Tablet PO ×2 (08:40→17:17)
--- NOTE | 2021-03-29 08:57 | P.NPUPN_ITS ---
Subjective NPU Subjective: Interval history: She says that she needs her voices and paranoia to be better. They have been worse for the last few weeks. She has been counting her food because she is afraid people will steal it. She looks out the window to see if anybody is watching the house. She says that she cannot look people in the eye for very long because she sees things about them. She says that her psychiatric nurse practitioner, Arabella Jordan had recently planned on decreasing the Abilify to 15 mg because she thought that the higher dose might be causing her symptoms. She had actually not picked up the 15 mg tablets until shortly before because she came into the hospital and has still been at 20 mg. She had planned on reducing the Abilify to 15 mg but it is not clear why. It seemed like she was doing fairly well and she was hoping that the dose could be reduced. She says that she is obsessive-compulsive. If she was allowed to she would turn the house upside down and get everything in exactly the right place. She would organize her closet so that things were by type and color. 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 Her medication now is the same as as an outpatient. Paxil was 40 mg and Abilify 20 mg. She was on BuSpar 15 mg twice a day but that has not been continued in the hospital. Medications: Reviewed: Yes Mental Status Exam MSE Comments: This is an overweight versus obese white female with hospital scrubs on with limited grooming and eye contact. Poor/absent dentition. No abnormal movements. cooperative with exam in no acute distress. Speech was normal rate and volume. Mood described as depressed, affect congruent. Thought process organized. Thought content: Patient denied suicidal or homicidal ideation, there were no delusions reported or noted, she did endorse auditory and visual hallucinations. Attention and concentration appear limited and memory was somewhat reliable but none were formally tested. Alert and oriented x3. Insight and judgment appear fair, impulse control appears limited. Cognition: Patient Appearance: Disheveled/Poor Hygiene Level of Consciousness: Awake, Alert, Appropriate and Follows Commands Patient Cognition Impaired: No Ability to Follow Directions: Good Patient Orientation (long list): Person, Place, Time, Name, Age, Birthday, Day of Month, Day of Week, Month, Time of Day and Year Comprehension Ability: Understands Concepts Hallucination Type: None Delusion Description: Not Present Thought Process: Circumstantial Affect: Depressive Symptoms: Back Pain, Changes in Appetite, Crying Spells, Difficulty Concentrating, Difficulty Sleeping, Difficulty Making Decisions, Feelings of Guilt, Feelings of Worthlessness, Hopelessness, Insomnia, Increased Anxiety, Increased Fatigue, Increased Irritability, Isolating Oneself From Friends and Family, Loss of Energy, Loss of Interest in Activities, Low Self Esteem, Significant Weight Gain, Recurrent Thoughts of or Suicide, Unexplained Headaches and Unhappiness Behavior: Patient Behavior: Appropriate Speech Pattern: Appropriate Vitals/I&O/Wt Last Vital Signs Temp 97.7 F 03/29/21 06:00 Pulse 77 03/29/21 06:00 Resp 18 03/29/21 06:00 BP 120/78 03/29/21 06:00 Pulse Ox 94 03/29/21 06:00 Data NPU : 03/26/21 14:43 03/26/21 14:43 A&P Assessment and plan (1) Suicidal ideation: Status: Acute (2) Auditory hallucinations: Status: Acute (3) History of command hallucinations: Status: Acute (4) Cephalalgia: Status: Chronic (5) 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 (6) Folliculitis: Status: Acute (7) Decreased movement of upper extremity: Status: Acute (8) Decreased sensation of hand and arm: Status: Acute (9) Schizoaffective disorder, depressive type: Status: Chronic (10) Cannabis dependence, uncomplicated: Status: Suspected (11) COPD (chronic obstructive pulmonary disease): Status: Chronic Qualifiers: COPD type: emphysema Emphysema type: unspecified Qualified Code(s): J43.9 - Emphysema, unspecified Additional A&P Information (1) Suicidal ideation: (2) Auditory hallucinations: (3) History of command hallucinations: (4) Cephalalgia: (5) Diabetes mellitus associated with pancreatic disease: (6) Folliculitis: (7) Decreased movement of upper extremity: (8) Decreased sensation of hand and arm: (9) Schizoaffective disorder, depressive type: (10) Cannabis dependence, uncomplicated: (11) COPD (chronic obstructive pulmonary disease): Additional A&P Information (1) Schizoaffective disorder, depressive type: (2) Cephalalgia: (3) Diabetes mellitus associated with pancreatic disease: (4) Essential (primary) hypertension: (5) Cannabis dependence, uncomplicated: This is a 55 year old female with a history of schizoafffective disorder, cannabis dependence, and fibromyalgia muscle pain who was admitted for worsening command hallucinations to kill herself. Recent stressors have exacerbated her schizoaffective disorder. RECOMMENDATION AND PLAN: 1. Continue current medication. 2. Continue every 15 minute checks for safety. 3. Encourage individual, group and milieu therapies. 4. Encourage sober living treatment after discharge at the highest level of care to which he is willing to commit. 5. We will connect with outpatient team about increasing Abilify versus switching. Involuntary Hold Information 96 Hour Hold: 96 Hour Involuntary Admission: No Attestations NPU Medical Necessity Statement*: Inpatient hospitalization is medically necessary and the clinically appropriate intervention at this time. We will initiate medications and make changes as indicated. Coding Level of Care Code Acute Agricultural Economics Professor for Lenny Winn Diagnoses Suicidal ideation R45.851 Auditory hallucinations R44.0 History of command hallucinations Z86.59 Cephalalgia R51.9 Diabetes mellitus associated with pancreatic disease E11.69; K86.9 Folliculitis L73.9 Decreased movement of upper extremity R29.898 Decreased sensation of hand and arm R20.8 Schizoaffective disorder, depressive type F25.1 Cannabis dependence, uncomplicated F12.20 COPD (chronic obstructive pulmonary disease) J43.9 COPD type: emphysema Emphysema type: unspecified
[2021-03-29] MEDS: insulin lispro 100 unit/1 mL SUBCUT ×2 (09:48→18:18)
--- NOTE | 2021-03-29 12:42 | PC.SOCIAL ---
IMM Update Discussed Medicare rights with patient, verbalized understanding. Provided patient with a copy and place signed, dated copy in patient's chart.
[2021-03-29 17:17] LABS: Glucose Point of Care 162 mg/dL (70-110)
[2021-03-29] MEDS: albuterol 8 gm MDI 1 PUFF INHALATION (17:28)
[2021-03-29 20:38] LABS: Glucose Point of Care 144 mg/dL (70-110)
[2021-03-29] MEDS: trazodone 100 mg Tablet PO ×2 (20:40→20:48)
[2021-03-29] MEDS: hyDROXYzine 25 mg Capsule 50 MG PO ×2 (20:40→20:48)
--- NOTE | 2021-03-29 21:15 | PC.NURSE ---
PT REQUESTING SLEEP AND ANXIETY MEDS. SCHEDULED TRAZODONE 50MG PO FOR SLEEP AND PRN VISTARIL 50MG PO FOR ANXIETY GIVEN.
--- NOTE | 2021-03-29 23:30 | PC.NURSE ---
pt refused insulin due to did not eat well today. pt refuse a snack before going to bed.
[2021-03-30 06:00] VITALS: BP 118/69; PULSE 68; RESP 16; O2SAT 95
[2021-03-30 06:31] LABS: Glucose Point of Care 165 mg/dL (70-110)
[2021-03-30] MEDS: albuterol 8 gm MDI 1 PUFF INHALATION (08:00)
[2021-03-30 08:01] VITALS: PULSE 92; RESP 18; O2SAT 96
[2021-03-30] MEDS: pantoprazole DR 40 mg Tablet PO (09:51)
[2021-03-30] MEDS: benztropine 1 mg Tablet PO (09:51)
[2021-03-30] MEDS: PARoxetine 20 mg Tablet 40 MG PO (09:51)
[2021-03-30] MEDS: propranolol 20 mg Tablet PO ×2 (09:52→17:41)
[2021-03-30] MEDS: zonisamide 100 MG Capsule PO ×2 (09:52→17:41)
[2021-03-30] MEDS: tizanidine 4 mg Tablet 2 MG PO ×2 (09:52→17:42)
[2021-03-30] MEDS: acetaminophen 325 mg Tablet 650 MG PO ×2 (09:52→13:41)
[2021-03-30] MEDS: ARIPiprazole 10 mg Tablet 20 MG PO (09:52)
--- NOTE | 2021-03-30 10:01 | P.NPUPN_ITS ---
Subjective NPU Subjective: Interval history: She continues to have auditory and visual hallucinations unchanged. She continues to have some paranoia as we discussed yesterday. She says there is no difference. She asked if I had talked with Arabella Jordan. The child welfare social worker talked with her yesterday and said that she would prefer that I make any medication changes based on my judgment. She initially said that she had been on lithium and it caused her to gain weight. She says he just has to look at something and she gains weight. She needs to get her weight down to 140 pounds. She said that she had been on lithium and it caused her to gain weight. After some discussion she thought that Mary was a sister drug to lithium and she was on it and it caused her to gain weight. She has never been on lithium. She agreed to a trial. We discussed the risks and benefits including needs for blood work and checking the kidneys and thyroid. Mental Status Exam MSE Comments: This is an overweight versus obese white female with hospital scrubs on with limited grooming and eye contact. Poor/absent dentition. No abnormal movements. cooperative with exam in no acute distress. Speech was normal rate and volume. Mood described as depressed, affect congruent. Thought process organized. Thought content: Patient denied suicidal or homicidal ideation, there were no delusions reported or noted, she did endorse auditory and visual hallucinations. Attention and concentration appear limited and memory was somewhat reliable but none were formally tested. Alert and oriented x3. Insight and judgment appear fair, impulse control appears limited. Cognition: Patient Appearance: Disheveled/Poor Hygiene Level of Consciousness: Awake, Alert, Appropriate and Follows Commands Patient Cognition Impaired: No Ability to Follow Directions: Good Patient Orientation (long list): Person, Place, Time, Name, Age, Birthday, Day of Month, Day of Week, Month, Time of Day and Year Comprehension Ability: Understands Concepts Hallucination Type: None Delusion Description: Not Present Thought Process: Circumstantial Affect: Affect Description: Appropriate Depressive Symptoms: Back Pain, Changes in Appetite, Crying Spells, Difficulty C oncentrating, Difficulty Sleeping, Difficulty Making Decisions, Feelings of Guilt, Feelings of Worthlessness, Hopelessness, Insomnia, Increased Anxiety, Increased Fatigue, Increased Irritability, Isolating Oneself From Friends and Family, Loss of Energy, Loss of Interest in Activities, Low Self Esteem, Significant Weight Gain, Recurrent Thoughts of or Suicide, Unexplained Headaches and Unhappiness Behavior: Patient Behavior: Appropriate Speech Pattern: Appropriate Vitals/I&O/Wt Last Vital Signs Temp 98.2 F 03/29/21 13:30 Pulse 92 03/30/21 08:01 Resp 18 03/30/21 08:01 BP 118/69 03/30/21 06:00 Pulse Ox 96 03/30/21 08:01 Data NPU : 03/26/21 14:43 03/26/21 14:43 A&P Assessment and plan (1) Suicidal ideation: Status: Acute (2) Auditory hallucinations: Status: Acute (3) History of command hallucinations: Status: Acute (4) Cephalalgia: Status: Chronic (5) 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 (6) Folliculitis: Status: Acute (7) Decreased movement of upper extremity: Status: Acute (8) Decreased sensation of hand and arm: Status: Acute (9) Schizoaffective disorder, depressive type: Status: Chronic (10) Cannabis dependence, uncomplicated: Status: Suspected (11) COPD (chronic obstructive pulmonary disease): Status: Chronic Qualifiers: COPD type: emphysema Emphysema type: unspecified Qualified Code(s): J43.9 - Emphysema, unspecified Additional A&P Information (1) Suicidal ideation: (2) Auditory hallucinations: (3) History of command hallucinations: (4) Cephalalgia: (5) Diabetes mellitus associated with pancreatic disease: (6) Folliculitis: (7) Decreased movement of upper extremity: (8) Decreased sensation of hand and arm: (9) Schizoaffective disorder, depressive type: (10) Cannabis dependence, uncomplicated: (11) COPD (chronic obstructive pulmonary disease): Additional A&P Information (1) Schizoaffective disorder, depressive type: (2) Cephalalgia: (3) Diabetes mellitus associated with pancreatic disease: (4) Essential (primary) hypertension: (5) Cannabis dependence, uncomplicated: This is a 55 year old female with a history of schizoafffective disorder, can nabis dependence, and fibromyalgia muscle pain who was admitted for worsening command hallucinations to kill herself. Recent stressors have exacerbated her schizoaffective disorder. RECOMMENDATION AND PLAN: 1. Continue current medication. Add lithium BID and increase to 1 QAM and 2 at dinner as tolerated. 2. Continue every 15 minute checks for safety. 3. Encourage individual, group and milieu therapies. 4. Encourage sober living treatment after discharge at the highest level of care to which he is willing to commit. 5. We will connect with outpatient team about increasing Abilify versus switching. Involuntary Hold Information 96 Hour Hold: 96 Hour Involuntary Admission: No Attestations NPU Medical Necessity Statement*: Inpatient hospitalization is medically necessary and the clinically appropriate intervention at this time. We will initiate medications and make changes as indicated. 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
[2021-03-30] MEDS: lithium carbonate 300 mg Capsule PO ×2 (10:49→17:41)
[2021-03-30 14:00] VITALS: BP 100/67; PULSE 63; RESP 18; TEMP 36.6; O2SAT 96
[2021-03-30] MEDS: ibuprofen 800 mg tablet PO (15:20)
[2021-03-30 16:35] LABS: Glucose Point of Care 170 mg/dL (70-110)
[2021-03-30] MEDS: insulin lispro 100 unit/1 mL SUBCUT ×2 (17:42→20:10)
[2021-03-30] MEDS: trazodone 100 mg Tablet PO (20:06)
[2021-03-30 20:08] LABS: Glucose Point of Care 164 mg/dL (70-110)
[2021-03-30 20:42] VITALS: BP 95/56; PULSE 59; RESP 15; TEMP 36.8; O2SAT 97
[2021-03-30 21:43] VITALS: PULSE 67; RESP 18; O2SAT 95
[2021-03-30 21:50] LABS: Add Urine Microscopic? YES; Bilirubin Urine Neg (Negative); Blood Urine Neg (Negative); Glucose Urine UA 1+ (Normal); Ketones Urine Negative (Negative); Leukocyte Esterase Urine 2+ (Negative); Nitrate Urine Negative (Negative); Protein Urine Neg (Negative); Urine Appearance Clear (CLEAR); Urine Color Yellow (Yellow); Urobilinogen Urine Norm (Negative); pH Urine 5 (5-7)
[2021-03-30 21:51] LABS: RBC Urine 0-4 /hpf (0-2)
[2021-03-30 21:52] LABS: Add Urine Culture? Yes; Bacteria Urine 1+ /hpf; Hyaline Casts Urine 0-4 /lpf; WBC Urine 80-100 /hpf (0-5)
[2021-03-31 05:58] LABS: Glucose Point of Care 166 mg/dL (70-110)
[2021-03-31 06:00] VITALS: BP 113/59; PULSE 64; RESP 15; O2SAT 94
[2021-03-31] MEDS: hyDROXYzine 25 mg Capsule 50 MG PO ×2 (07:20→20:24)
[2021-03-31] MEDS: OLANZapine 5 mg ODT PO (07:20)
--- NOTE | 2021-03-31 07:40 | P.NPUPN_ITS ---
Subjective NPU Subjective: Interval history: She says that she thinks that the lithium is helping her. Her brain is a little bit less scattered and busy. Slept a little bit better last night. She still has difficulty focusing on things. She still has problems remembering things but that has been ongoing recently. She does not have any negative side effects from the lithium. Like to go up to 900 mg daily. She has previously requested that it be only twice a day. She said that her voices and paranoia seemed to be somewhat decreased today. She attributes that the lithium also. Mental Status Exam MSE Comments: This is an overweight versus obese white female with hospital scrubs on with limited grooming and eye contact. Poor/absent dentition. No abnormal movements. cooperative with exam in no acute distress. Speech was normal rate and volume. Mood described as depressed, affect congruent. Thought process organized. Thought content: Patient denied suicidal or homicidal ideation, there were no delusions reported or noted, she did endorse auditory and visual hallucinations. Attention and concentration appear limited and memory was somewhat reliable but none were formally tested. Alert and oriented x3. Insight and judgment appear fair, impulse control appears limited. Cognition: Patient Appearance: Disheveled/Poor Hygiene Level of Consciousness: Awake, Alert, Appropriate and Follows Commands Patient Cognition Impaired: No Ability to Follow Directions: Good Patient Orientation (long list): Person, Place, Time, Name, Age, Birthday, Day of Month, Day of Week, Month, Time of Day and Year Comprehension Ability: Understands Concepts Hallucination Type: None Delusion Description: Not Present Thought Process: Circumstantial Affect: Affect Description: Appropriate Depressive Symptoms: Back Pain, Changes in Appetite, Crying Spells, Difficulty Concentrating, Difficulty Sleeping, Difficulty Making Decisions, Feelings of Guilt, Feelings of Worthlessness, Hopelessness, Insomnia, Increased Anxiety, Increased Fatigue, Increased Irritability, Isolating Oneself From Friends and Family, Loss of Energy, Loss of Interest in Activities, Low Self Esteem, Significant Weight Gain, Recurrent Thoughts of or Suicide, Unexplained Headaches and Unhappiness Behavior: Patient Behavior: Appropriate and Cooperative Speech Pattern: Appropriate and Clear Vitals/I&O/Wt Last Vital Signs Temp 98.3 F 03/30/21 20:42 Pulse 64 03/31/21 06:00 Resp 15 03/31/21 06:00 BP 113/59 03/31/21 06:00 Pulse Ox 94 12/18/21 06:00 Data NPU : 03/26/21 14:43 03/26/21 14:43 A&P Assessment and plan (1) Suicidal ideation: Status: Acute (2) Auditory hallucinations: Status: Acute (3) History of command hallucinations: Status: Acute (4) Cephalalgia: Status: Chronic (5) 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 (6) Folliculitis: Status: Acute (7) Decreased movement of upper extremity: Status: Acute (8) Decreased sensation of hand and arm: Status: Acute (9) Schizoaffective disorder, depressive type: Status: Chronic (10) Cannabis dependence, uncomplicated: Status: Suspected (11) COPD (chronic obstructive pulmonary disease): Status: Chronic Qualifiers: COPD type: emphysema Emphysema type: unspecified Qualified Code(s): J43.9 - Emphysema, unspecified Additional A&P Information (1) Suicidal ideation: (2) Auditory hallucinations: (3) History of command hallucinations: (4) Cephalalgia: (5) Diabetes mellitus associated with pancreatic disease: (6) Folliculitis: (7) Decreased movement of upper extremity: (8) Decreased sensation of hand and arm: (9) Schizoaffective disorder, depressive type: (10) Cannabis dependence, uncomplicated: (11) COPD (chronic obstructive pulmonary disease): Additional A&P Information (1) Schizoaffective disorder, depressive type: (2) Cephalalgia: (3) Diabetes mellitus associated with pancreatic disease: (4) Essential (primary) hypertension: (5) Cannabis dependence, uncomplicated: This is a 55 year old female with a history of schizoafffective disorder, cannabis dependence, and fibromyalgia muscle pain who was admitted for worsening command hallucinations to kill herself. Recent stressors have exacerbated her schizoaffective disorder. RECOMMENDATION AND PLAN: 1. Continue current medication. Add lithium BID and increase to 1 QAM and 2 at dinner today. 2. Continue every 15 minute checks for safety. 3. Encourage individual, group and milieu therapies. 4. Encourage sober living treatment after discharge at the highest level of care to which he is willing to commit. Involuntary Hold Information 96 Hour Hold: 96 Hour Involuntary Admission: No Attestations NPU Medical Necessity Statement*: Inpatient hospitalization is medically necessary and the clinically appropriate intervention at this time. We will initiate medications and make changes as indicated. 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
[2021-03-31] MEDS: lithium carbonate 300 mg Capsule PO (08:57)
[2021-03-31] MEDS: PARoxetine 20 mg Tablet 40 MG PO (08:57)
[2021-03-31] MEDS: ARIPiprazole 10 mg Tablet 20 MG PO (08:58)
[2021-03-31] MEDS: tizanidine 4 mg Tablet 2 MG PO ×2 (08:58→17:13)
[2021-03-31] MEDS: zonisamide 100 MG Capsule PO ×2 (08:58→17:13)
[2021-03-31] MEDS: pantoprazole DR 40 mg Tablet PO (08:58)
[2021-03-31] MEDS: propranolol 20 mg Tablet PO ×2 (08:58→17:13)
[2021-03-31] MEDS: benztropine 1 mg Tablet PO (08:59)
[2021-03-31 11:48] LABS: Glucose Point of Care 201 mg/dL (70-110)
[2021-03-31] MEDS: insulin lispro 100 unit/1 mL SUBCUT ×2 (12:50→20:25)
[2021-03-31 14:00] VITALS: BP 104/73; PULSE 70; RESP 20; TEMP 36.6; O2SAT 94
[2021-03-31 16:38] LABS: Glucose Point of Care 112 mg/dL (70-110)
[2021-03-31] MEDS: lithium carbonate ER 300 mg Tablet 600 MG PO (17:13)
[2021-03-31 20:23] LABS: Glucose Point of Care 253 mg/dL (70-110)
[2021-03-31] MEDS: trazodone 50 mg Tablet PO (20:24)
[2021-03-31 20:34] VITALS: BP 131/77; PULSE 61; RESP 16; O2SAT 94
[2021-03-31] MEDS: albuterol 8 gm MDI 1 PUFF INHALATION (22:49)
[2021-03-31 22:50] VITALS: PULSE 68; RESP 18; O2SAT 93
[2021-03-31 22:51] VITALS: PULSE 71
[2021-04-01] MEDS: OLANZapine 5 mg ODT PO (00:57)
[2021-04-01 05:47] VITALS: BP 97/68; PULSE 68; RESP 15; O2SAT 94
[2021-04-01 06:00] VITALS: BMI 29.7
[2021-04-01 06:05] LABS: Glucose Point of Care 184 mg/dL (70-110)
[2021-04-01 08:33] VITALS: PULSE 82; RESP 16; O2SAT 98
[2021-04-01] MEDS: lithium carbonate 300 mg Capsule PO (09:15)
[2021-04-01] MEDS: zonisamide 100 MG Capsule PO ×2 (09:15→17:05)
[2021-04-01] MEDS: propranolol 20 mg Tablet PO ×2 (09:15→17:05)
[2021-04-01] MEDS: pantoprazole DR 40 mg Tablet PO (09:15)
[2021-04-01] MEDS: benztropine 1 mg Tablet PO (09:15)
[2021-04-01] MEDS: PARoxetine 20 mg Tablet 40 MG PO (09:15)
[2021-04-01] MEDS: tizanidine 4 mg Tablet 2 MG PO ×2 (09:16→17:05)
[2021-04-01] MEDS: ARIPiprazole 10 mg Tablet 20 MG PO (09:16)
[2021-04-01] MEDS: insulin lispro 100 unit/1 mL SUBCUT ×2 (09:45→22:30)
--- NOTE | 2021-04-01 09:54 | P.NPUPN_ITS ---
Subjective NPU Subjective: Interval history: She said that she is doing better today. She says that her hallucinations as well as her paranoia are improved. She denies any side effects from the lithium. She received 900 mg yesterday for the first time. She had wanted to go home today so that she could talk with her great- nephew before he has surgery tomorrow. It would be best for her to stay 1 more day to assure that her symptoms are truly improved with the lithium. Her family agrees and she will stay 1 more day. Mental Status Exam MSE Comments: This is an overweight versus obese white female with hospital scrubs on with limited grooming and eye contact. Poor/absent dentition. No abnormal movements. cooperative with exam in no acute distress. Speech was normal rate and volume. Mood described as depressed, affect congruent. Thought process organized. Thought content: Patient denied suicidal or homicidal ideation, there were no delusions reported or noted, she did endorse auditory and visual hallucinations. Attention and concentration appear limited and memory was somewhat reliable but none were formally tested. Alert and oriented x3. Insight and judgment appear fair, impulse control appears limited. Cognition: Patient Appearance: Disheveled/Poor Hygiene Level of Consciousness: Awake, Alert, Appropriate and Follows Commands Patient Cognition Impaired: No Ability to Follow Directions: Good Patient Orientation (long list): Person, Place, Name, Age and Birthday Comprehension Ability: Understands Concepts Hallucination Type: None Delusion Description: Not Present Thought Process: Circumstantial Affect: Affect Description: Anxious Depressive Symptoms: Back Pain, Changes in Appetite, Crying Spells, Difficulty Concentrating, Difficulty Sleeping, Difficulty Making Decisions, Feelings of Guilt, Feelings of Worthlessness, Hopelessness, Insomnia, Increased Anxiety, Increased Fatigue, Increased Irritability, Isolating Oneself From Friends and Family, Loss of Energy, Loss of Interest in Activities, Low Self Esteem, Significant Weight Gain, Recurrent Thoughts of or Suicide, Unexplained Headaches and Unhappiness Behavior: Patient Behavior: Appropriate, Cooperative and Somatic Speech Pattern: Appropriate and Mumbled Vitals/I&O/Wt Last Vital Signs Temp 98 F 03/31/21 14:00 Pulse 82 04/01/21 08:33 Resp 16 04/01/21 08:33 BP 97/68 04/01/21 05:47 Pulse Ox 98 04/01/21 08:33 Weight last 48 hrs Weight 76.204 kg Data NPU : 03/26/21 14:43 03/26/21 14:43 A&P Assessment and plan (1) Suicidal ideation: Status: Acute (2) Auditory hallucinations: Status: Acute (3) History of command hallucinations: Status: Acute (4) Cephalalgia: Status: Chronic (5) 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 (6) Folliculitis: Status: Acute (7) Decreased movement of upper extremity: Status: Acute (8) Decreased sensation of hand and arm: Status: Acute (9) Schizoaffective disorder, depressive type: Status: Chronic (10) Cannabis dependence, uncomplicated: Status: Suspected (11) COPD (chronic obstructive pulmonary disease): Status: Chronic Qualifiers: COPD type: emphysema Emphysema type: unspecified Qualified Code(s): J43.9 - Emphysema, unspecified Additional A&P Information (1) Suicidal ideation: (2) Auditory hallucinations: (3) History of command hallucinations: (4) Cephalalgia: (5) Diabetes mellitus associated with pancreatic disease: (6) Folliculitis: (7) Decreased movement of upper extremity: (8) Decreased sensation of hand and arm: (9) Schizoaffective disorder, depressive type: (10) Cannabis dependence, uncomplicated: (11) COPD (chronic obstructive pulmonary disease): Additional A&P Information (1) Schizoaffective disorder, depressive type: (2) Cephalalgia: (3) Diabetes mellitus associated with pancreatic disease: (4) Essential (primary) hypertension: (5) Cannabis dependence, uncomplicated: This is a 55 year old female with a history of schizoafffective disorder, cannabis dependence, and fibromyalgia muscle pain who was admitted for worsening command hallucinations to kill herself. Recent stressors have exacerbated her schizoaffective disorder. RECOMMENDATION AND PLAN: 1. Continue current medication. lithium 300 mg 1 QAM and 2 at dinner today. 2. Continue every 15 minute checks for safety. 3. Encourage individual, group and milieu therapies. 4. Encourage sober living treatment after discharge at the highest level of care to which he is willing to commit. Involuntary Hold Information 96 Hour Hold: 96 Hour Involuntary Admission: No Attestations NPU Medical Necessity Statement*: Inpatient hospitalization is medically necessary and the clinically appropriate intervention at this time. We will initiate medications and make changes as indicated. 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
[2021-04-01 13:54] VITALS: BP 98/66; PULSE 61; RESP 17; TEMP 37; O2SAT 93
[2021-04-01] MEDS: lithium carbonate ER 300 mg Tablet 600 MG PO (17:06)
[2021-04-01 21:25] LABS: Glucose Point of Care 198 mg/dL (70-110)
[2021-04-01 22:00] VITALS: PULSE 55; RESP 15; O2SAT 92
[2021-04-01] MEDS: trazodone 100 mg Tablet PO (22:30)
[2021-04-02 06:00] VITALS: BP 124/83; PULSE 97; RESP 14; TEMP 36.7; O2SAT 95
[2021-04-02 06:29] LABS: Glucose Point of Care 158 mg/dL (70-110)
--- NOTE | 2021-04-02 06:57 | P.NPUDS_ITS ---
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 (6) Folliculitis: Status: Acute (7) Decreased movement of upper extremity: Status: Acute (8) Decreased sensation of hand and arm: Status: Acute (9) Schizoaffective disorder, depressive type: Status: Chronic (10) Cannabis dependence, uncomplicated: Status: Suspected (11) COPD (chronic obstructive pulmonary disease): Status: Chronic Qualifiers: COPD type: emphysema Emphysema type: unspecified Qualified Code(s): J43.9 - Emphysema, unspecified Reason for Visit Reason for Visit: SI W/A PLAN Brief History: HPI NPU History of Present Illness Brenna Francisco is a 55 year old female who presented to the emergency department with the following report: Chief Complaint: Psychiatric Symptoms Stated Complaint: SI W/A PLAN Time Seen by Provider: 03/26/21 14:25 Source: patient Mode of arrival: ambulatory Limitations: no limitations History of Present Illness: HPI Narrative: Patient is a 55-year-old female presents to ED today with complaint of suicidal ideations/auditory hallucinations telling her to kill herself. Patient tells me symptoms of been present over the past 3 weeks. She does have a history of schizophrenia. Patient tells me she does have previous suicide attempts. She cannot remember all of her psychiatric medications but believes she is on Abilify, trazodone, and BuSpar. She states she has a medication provider at [facility], [place]. She reports occasional marijuana use but no other drug or alcohol use. MD complaint: suicidal ideation Onset (ago): week(s) Duration: constant Associated psychiatric symptoms: depression, suicidal ideation and auditory hallucinations Associated symptoms: Reports auditory hallucinations, depression and suicidal ideation; Deny visual hallucinations or homicidal ideation Treatments prior to arrival: none. She was admitted to the neuropsychiatric unit for definitive treatment of those issues. She presents today reporting that the voices are getting bad. She reports that she has not been drinking this he denies cigarettes alcohol or other drugs other than marijuana occasionally. She reports that she used to have issues with addiction but has not been the case recently. She reports that she been stressed out recently by some mass that was discovered on examination and. Told her she would be fine but that the mass would end up being the cause of her losing all of her memory. She reports that that really took her for a week. She reports that she is been following up with her PCP. She reports that she can take her medication as prescribed. She denies any substantive changes in her life. Reporting significant same place with a great niece and nephew and a great great nephew reports that they do along well better. The patient voices have been a probiotic and we discussed the benefits and alternatives of increasing intensity proceed as documented in the concern however was that she proceed getting into EPS with increased dosing of Abilify so we discussed whether or not there needed to be a medication change versus increasing the Abilify and adding something for the symptoms from the EPS. An excerpt from her last discharge summary is included below for context. Hospital Course Hospital Course She slowly acclimated to the individual, group and milieu therapies provided. She was continued on her outpatient medication. Abilify was added after about 5 days and she seemed to have a very good response to that without side effects. Her anxiety, hallucinations and paranoia were all improved. she tolerated these doses and showed steady improvement during her stay. She was able to contract for safety outside hospital prior to discharge. During the hospitalization, patient had routine laboratory studies which were within normal limits except for few outliers. Additionally there was a general medical evaluation which was also within normal limits and revealed no new acute processes. Discharge Summary: At the time of discharge, lethality was denied and psychosis was resolving. Mood and anxiety were well managed. Patient endorsed a plan to follow-up with the aftercare recommendations of the treatment team. Patient was evaluated and deemed to be absent credible lethality, and had achieved the maximum benefit from an inpatient hospitalization, so was discharged. Involuntary Hold Information 96 Hour Hold: 96 Hour Involuntary Admission: No Mental Status Exam MSE Comments: This is an overweight versus obese white female with hospital scrubs on with limited grooming and eye contact. Poor/absent dentition. No abnormal movements. cooperative with exam in no acute distress. Speech was normal rate and volume. Mood described as good, affect congruent. Thought process organized. Thought content: Patient denied suicidal or homicidal ideation, there were no delusions reported or noted, she denies any auditory or visual hallucinations this morning. Attention and concentration appear limited and memory was somewhat reliable but none were formally tested. Alert and oriented x3. Insight and judgment appear fair, impulse control appears limited. Discharge Data Data Completed and Pending: Pending at discharge Category Date Time Status Urine Culture [facility] Lab 03/30/21 20:45 Results Labs from last 24 hours 04/02/21 04/01/21 06:16 21:03 POC Glucose 158 H 198 H Vitals: Last Vital Signs Temp 98.0 F 04/02/21 06:00 Pulse 97 04/02/21 06:00 Resp 14 04/02/21 06:00 BP 124/83 04/02/21 06:00 Pulse Ox 95 04/02/21 06:00 Discharge Plan Discharge Patient Disposition: Home Condition: Stable Prescriptions: New lithium carbonate 300 mg Tablet Extended Release 600 mg PO 1800 30 Days Qty: 60 RF: 0 lithium carbonate 300 mg Tablet Extended Release 300 mg PO QAM 30 Days Qty: 30 RF: 0 paroxetine HCl 20 mg Tablet 40 mg PO DAILY Qty: 0 RF: 0 aripiprazole 10 mg Tablet 20 mg PO DAILY Qty: 0 RF: 0 Continued propranolol 20 mg tablet 20 mg PO BID Qty: 180 RF: 1 tizanidine 2 mg tablet 2 mg PO BID Qty: 180 RF: 1 (DME) FreeStyle Lite Strips Strip See Rx Instructions .Route Qty: 100 RF: 2 (DME) oxygen concentrator See Rx Instructions .Route .MEDSUPPLY Qty: 1 RF: 0 benztropine 1 mg tablet 1 mg PO DAILY RF: 0 Jardiance 25 mg tablet 25 mg PO DAILY RF: 0 paroxetine HCl 40 mg tablet 30 mg PO DAILY RF: 0 trazodone 100 mg tablet 100 mg PO BEDTIME RF: 0 zonisamide 100 mg capsule 100 mg PO BID RF: 0 ProAir HFA 90 mcg/actuation HFA aerosol inhaler 90 mcg INHALATION QID RF: 0 omeprazole 40 mg capsule,delayed release(DR/EC) 40 mg PO DAILY RF: 0 Discontinued aripiprazole 15 mg tablet 20 mg PO DAILY RF: 0 Discharge Orders: Discharge Order (Routine); Ordered 04/02/21 Ordered By: Yung Nelson Referrals: Mariajose Pa MD [Physician] - 04/30/21 12:00 pm (Follow up appointment with Dr. Pa on 04/30/21 @ 12:00pm) Rachael Jordan APRN [Nurse Practitioner] - 04/10/21 11:15 am (Medications appointment on 04-10-21 @ 11:15am. ) Lucila Thomas, SOCIOLOGY TEACHER-C [Primary Care Provider] - Discharge Diet: Diabetic Discharge Activity: Resume usual activity Patient Instructions: Opioid Safety Discharge Attestations NPU Time Spent in Discharge Care*: greater than 30 min Specific Discharge Activities: Specific discharge activities: educating patient, discussing with case packer and sealer/social workers/dc planners, documenting/other paperwork and evaluating patient/reviewing data Status at Discharge: Cognitive status at discharge: cognitively intact , Behavioral status at discharge: cooperative , Coding Level of Care Code Acute [facility] DC note Diagnoses Suicidal ideation R45.851 Auditory hallucinations R44.0 History of command hallucinations Z86.59 Cephalalgia R51.9 Diabetes mellitus associated with pancreatic disease E11.69; K86.9 Folliculitis L73.9 Decreased movement of upper extremity R29.898 Decreased sensation of hand and arm R20.8 Schizoaffective disorder, depressive type F25.1 Cannabis dependence, uncomplicated F12.20 COPD (chronic obstructive pulmonary disease) J43.9 COPD type: emphysema Emphysema type: unspecified
[2021-04-02 07:48] VITALS: BP 124/83; PULSE 97; RESP 14; TEMP 36.7; O2SAT 95
[2021-04-02] MEDS: insulin lispro 100 unit/1 mL SUBCUT ×2 (08:24→11:56)
[2021-04-02] MEDS: ARIPiprazole 10 mg Tablet 20 MG PO (08:25)
[2021-04-02] MEDS: propranolol 20 mg Tablet PO (08:25)
[2021-04-02] MEDS: zonisamide 100 MG Capsule PO (08:25)
[2021-04-02] MEDS: tizanidine 4 mg Tablet 2 MG PO (08:25)
[2021-04-02] MEDS: hyDROXYzine 25 mg Capsule 50 MG PO (08:26)
[2021-04-02] MEDS: benztropine 1 mg Tablet PO (08:26)
[2021-04-02] MEDS: PARoxetine 20 mg Tablet 40 MG PO (08:26)
[2021-04-02] MEDS: pantoprazole DR 40 mg Tablet PO (08:28)
--- NOTE | 2021-04-02 09:48 | DCPLANNER ---
IMM completed 04/02/21 @ 4284. Pt was given a coy of rights and stated she understood her rights.
--- NOTE | 2021-04-02 10:42 | NPU.GN ---
[facility] Topic:Depression/ Anxiety [place] General Mood of Group: Brenna did not attend group this morning she was awaiting her ride home.
[2021-04-02 11:28] LABS: Glucose Point of Care 146 mg/dL (70-110)
== END 2021-04-02 12:07 | disposition home or self-care (01) | DRG 885 ==
LOC: ER 16:22 → NP 16:42
PROVIDERS: Physician Assistant; Psychiatry & Neurology Psychiatry; Admitting Provider Psychiatry & Neurology Psychiatry; Emergency Provider Family Medicine; PCP Nurse Practitioner; Visit Provider Psychiatry & Neurology Psychiatry
DX: F25.1 Schizoaffective disorder, depressive type (principal); R45.851 Suicidal ideations; F12.20 Cannabis dependence, uncomplicated; M96.1 Postlaminectomy syndrome, not elsewhere classified; F17.210 Nicotine dependence, cigarettes, uncomplicated; J43.9 Emphysema, unspecified; K86.9 Disease of pancreas, unspecified; E08.9 Diabetes mellitus due to underlying condition without complications; K21.9 Gastro-esophageal reflux disease without esophagitis
CPT/HCPCS: 36416; 80053; 80306; 80307; 81001; 82962; 85025; 87077; 87086; 87186; 94640; 96372; 97165; 99285; J1815; J1885; J2550; J3535

== ENCOUNTER → 2021-04-24 10:46 | Outpatient (BNVA) | payer OTHER, MEDICAID, SELFPAY ==
[2021-04-24 14:14] VITALS: BP 125/70; BMI 32.3
== END ==
PROVIDERS: PCP Nurse Practitioner; Visit Provider Nurse Practitioner Psychiatric/Mental Health
DX: Z51.81 Encounter for therapeutic drug level monitoring (principal)
CPT/HCPCS: 80178

== ENCOUNTER → 2021-05-08 10:24 | Outpatient (BNVA) | payer OTHER, MEDICAID, SELFPAY ==
[2021-04-24 14:14] VITALS: BP 125/70; BMI 32.3
== END ==
PROVIDERS: PCP Nurse Practitioner; Visit Provider Nurse Practitioner Psychiatric/Mental Health
DX: Z79.899 Other long term (current) drug therapy (principal)
CPT/HCPCS: 80178

== ENCOUNTER → 2021-05-11 09:48 | Outpatient (BNVA) | payer OTHER, MEDICAID, SELFPAY ==
[2021-04-24 14:14] VITALS: BP 125/70; BMI 32.3
== END ==
PROVIDERS: PCP Nurse Practitioner; Visit Provider Nurse Practitioner Family
DX: Z20.822 Contact with and (suspected) exposure to COVID-19 (principal)
CPT/HCPCS: 87635

== ENCOUNTER → 2021-06-21 10:55 | Outpatient (BNVA) | payer OTHER, MEDICAID, SELFPAY ==
[2021-05-14 08:58] VITALS: BP 125/70; BMI 32.3
== END ==
PROVIDERS: PCP Nurse Practitioner; Visit Provider Nurse Practitioner
DX: K86.9 Disease of pancreas, unspecified (principal); E11.69 Type 2 diabetes mellitus with other specified complication
CPT/HCPCS: 81000

== ENCOUNTER → 2021-07-10 10:16 | Outpatient (BNVA) | payer OTHER, MEDICAID, SELFPAY ==
[2021-05-14 08:58] VITALS: BP 125/70; BMI 32.3
== END ==
PROVIDERS: PCP Nurse Practitioner; Visit Provider Nurse Practitioner Psychiatric/Mental Health
DX: Z51.81 Encounter for therapeutic drug level monitoring (principal); Z79.899 Other long term (current) drug therapy; F12.20 Cannabis dependence, uncomplicated; J43.9 Emphysema, unspecified; F03.90 Unspecified dementia, unspecified severity, without behavioral disturbance, psychotic disturbance, mood disturbance, and anxiety; F25.1 Schizoaffective disorder, depressive type; E85.4 Organ-limited amyloidosis; I68.0 Cerebral amyloid angiopathy; G37.9 Demyelinating disease of central nervous system, unspecified
CPT/HCPCS: 80053; 80178

== ENCOUNTER 2021-07-16 21:49 | Emergency (ER) | payer MEDICARE, MEDICAID, SELFPAY ==
[2021-05-14 08:58] VITALS: BP 125/70; BMI 32.3
--- NOTE | 2021-07-16 21:51 | CTR_ITS ---
PROCEDURE INFORMATION: Exam: CT Head Without Contrast Exam date and time: 07/16/2021 9:55 PM Age: 56 years old Clinical indication: Speech disturbance; Additional info: Symptoms of acute stroke TECHNIQUE: Imaging protocol: Computed tomography of the head without contrast. Radiation optimization: All CT scans at this facility use at least one of these dose optimization techniques: automated exposure control; mA and/or kV adjustment per patient size (includes targeted exams where dose is matched to clinical indication); or iterative reconstruction. Other technique: STROKE PROTOCOL was implemented. COMPARISON: CT head wo con* [id number] 01/16/2021 8:37 PM RADIATION DOSE METRICS: Total DLP (mGy-cm): 713.38 FINDINGS: Brain: Mild white matter chronic microvascular changes are noted. No hemorrhage or evidence of acute infarction. Cerebral ventricles: No ventriculomegaly. Paranasal sinuses: Mild right sphenoid sinusitis is appreciated. Mastoid air cells: Visualized mastoid air cells are well aerated. Bones/joints: Unremarkable. No acute fracture. Soft tissues: Unremarkable. CT/CT head wo con* [id number] IMPRESSION: No acute intracranial abnormality. Mild sinusitis. ASSESSMENT: ASPECTS ([facility]less[facility] Stroke Program Early CT Score) is 10.
--- NOTE | 2021-07-16 21:57 | CTR_ITS ---
PROCEDURE INFORMATION: Exam: CT Angiography Head With Contrast, Arteriography Exam date and time: 07/17/2021 12:28 AM Age: 56 years old Clinical indication: Speech disturbance; Slurred speech; Additional info: CVA TECHNIQUE: Imaging protocol: Computed tomography angiography of the head with contrast. Exam focused on the arteries. 3D rendering (Not supervised by radiologist): MIP and/or 3D reconstructed images were created by the technologist. Radiation optimization: All CT scans at this facility use at least one of these dose optimization techniques: automated exposure control; mA and/or kV adjustment per patient size (includes targeted exams where dose is matched to clinical indication); or iterative reconstruction. Contrast material: OMNI 350; Contrast volume: 95 ml; Contrast route: INTRAVENOUS (IV); COMPARISON: 1. CT angio headneck* [id number] 12/03/2019 1:21 PM 2. CTA Head/Neck [id number] 10/10/2018 1:43 PM RADIATION DOSE METRICS: Total DLP (mGy-cm): 2059.77 FINDINGS: ANTERIOR CIRCULATION: Right internal carotid artery: Unremarkable. Intracranial segment is patent with no significant stenosis. No aneurysm. Right middle cerebral artery: Unremarkable. No occlusion or significant stenosis. No aneurysm. Right anterior cerebral artery: Unremarkable. No occlusion or significant stenosis. No aneurysm. Left internal carotid artery: Unremarkable. Intracranial segment is patent with no significant stenosis. No aneurysm. Left middle cerebral artery: Unremarkable. No occlusion or significant stenosis. No aneurysm. Left anterior cerebral artery: Unremarkable. No occlusion or significant stenosis. No aneurysm. POSTERIOR CIRCULATION: Right vertebral artery: Unremarkable. No occlusion or significant stenosis. No aneurysm. Left vertebral artery: Unremarkable. No occlusion or significant stenosis. No aneurysm. Basilar artery: Unremarkable. No occlusion or significant stenosis. No aneurysm. Right posterior cerebral artery: Unremarkable. No occlusion or significant stenosis. No aneurysm. Left posterior cerebral artery: Unremarkable. No occlusion or significant stenosis. No aneurysm. IMPRESSION: Patent intracranial arteries. PROCEDURE INFORMATION: Exam: CT Angiography Neck With Contrast Exam date and time: 07/17/2021 12:28 AM Age: 56 years old Clinical indication: Speech disturbance; Slurred speech; Additional info: CVA TECHNIQUE: Imaging protocol: Computed tomography angiography of the neck with contrast. 3D rendering (Not supervised by radiologist): MIP and/or 3D reconstructed images were created by the technologist. Radiation optimization: All CT scans at this facility use at least one of these dose optimization techniques: automated exposure control; mA and/or kV adjustment per patient size (includes targeted exams where dose is matched to clinical indication); or iterative reconstruction. Contrast material: OMNI 350; Contrast volume: 95 ml; Contrast route: INTRAVENOUS (IV); COMPARISON: 1. CT angio headneck* [id number] 12/03/2019 1:21 PM 2. CTA Head/Neck [id number] 10/10/2018 1:43 PM RADIATION DOSE METRICS: Total DLP (mGy-cm): 2060.77 FINDINGS: Right common carotid artery: No stenosis. No dissection or occlusion. Right internal carotid artery: Mild stenosis of the proximal right ICA is noted. Right external carotid artery: No occlusion or stenosis of the origin. Left common carotid artery: No stenosis. No dissection or occlusion. Left internal carotid artery: Mild stenosis of the proximal left ICA is appreciated. Left external carotid artery: No occlusion or stenosis of the origin. Right vertebral artery: No stenosis. No dissection or occlusion. Left vertebral artery: No stenosis. No dissection or occlusion. Soft tissues: Normal. No significant soft tissue swelling. Bones/joints: C4-C6 anterior cervical fusion changes are noted. No acute fracture. Lungs: Mild centrilobular emphysema is noted. CT/CT angio headne* [id number] IMPRESSION: 1. Mild stenosis of bilateral proximal ICAs. 2. Mild pulmonary emphysema REFERENCES: NASCET CRITERIA. The degree of internal carotid artery stenosis is based on NASCET criteria. Normal is no stenosis. Mild is less than 50% stenosis. Moderate is 50-69% stenosis. Severe is 70% to 99% stenosis. Total occlusion is no detectable patent lumen.
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
[2021-07-16 22:14] VITALS: BP 133/71; PULSE 70; RESP 18; TEMP 36.3; O2SAT 96; BMI 32.9
[2021-07-16 22:15] LABS: Glucose Point of Care 177 mg/dL (70-110)
[2021-07-16 22:52] LABS: Carbon Dioxide 24 mmol/L (22-29); Chloride 105 mmol/L (98-107); Potassium 4.1 mmol/L (3.5-5.1); Sodium 140 mmol/L (136-145)
[2021-07-16 22:53] LABS: Basophils # 0.2 10^3/uL (0.0-0.1); Basophils % 1.1 %; Eosinophils # 0.3 10^3/uL (0.0-0.8); Eosinophils % 2.3 %; Hematocrit 45.3 % (37.0-47.0); Hemoglobin 14.3 g/dL (11.5-15.3); Lymphocytes # 4.9 10^3/uL (0.8-4.8); Lymphocytes % 36.5 %; Mean Corpuscular HGB Conc 31.6 g/dL (30.0-36.0); Mean Corpuscular Hemoglobin 31.4 pg (28.0-34.0); Mean Corpuscular Volume 99.3 fl (81-99); Mean Platelet Volume 11.3 fL (7.4-10.4); Monocytes % 7.3 %; Neutrophils # 7.09 10^3/uL (1.8-7.7); Neutrophils % 52.5 %; Nucleated Red Blood Cells % 0 %; Platelet Count 278 10^3/cmm (130-400); Red Blood Count 4.56 10^6/uL (4.1-5.3); Red Cell Distribution Width 13.2 % (12.1-15.1); White Blood Count 13.5 10^3/uL (4.0-10.0)
[2021-07-16 22:53] LABS: Alanine Aminotransferase 30 U/L (0-33); Albumin Level 4.4 g/dL (3.5-5.2); Alkaline Phosphatase 111 IU/L (35-105); Anion Gap 15.1 (5-19); Aspartate Amino Transferase 27 U/L (0-32); Blood Urea Nitrogen 6 mg/dL (6-20); Calcium 10.3 mg/dL (8.5-10.5); Globulin 2.2 g/dL (1.3-4.6); Glomerular Filtration Rate 74.2 mL/min (90-130); Glucose 179 mg/dL (65-115); Osmolality Calculated 292 mOsm/kg (285-295); Total Bilirubin 0.2 mg/dL (0.15-1.2); Total Protein 6.6 g/dL (6.6-8.7)
--- NOTE | 2021-07-16 23:09 | PC.NURSE ---
Pt. has deficit from previous stroke on left side.
[2021-07-16 23:16] LABS: Slide Review Slide Review Perform
[2021-07-16 23:17] LABS: Add Urine Microscopic? NO; Charge for UA Resulting for Rev
[2021-07-16 23:18] VITALS: BP 133/71; PULSE 67; RESP 24; O2SAT 93
[2021-07-16 23:20] LABS: Bilirubin Urine Neg (Negative); Blood Urine Neg (Negative); Glucose Urine UA Norm (Normal); Ketones Urine Negative (Negative); Leukocyte Esterase Urine Negative (Negative); Nitrate Urine Negative (Negative); Protein Urine Neg (Negative); Specific Gravity, Urine 1.005 (1.005-1.030); Urine Appearance Clear (CLEAR); Urine Color Yellow (Yellow); Urobilinogen Urine Norm (Negative); pH Urine 7 (5-7)
[2021-07-16 23:24] LABS: INR 0.99 (0.8-1.2)
[2021-07-16 23:25] LABS: Partial Thromboplastin Time > 250.0 SECONDS (23.9-36.7)
[2021-07-16 23:28] LABS: Amphetamines Screen Urine Negative (Negative); Barbiturates Screen Urine Negative (Negative); Benzodiazepines Screen Urine Negative (Negative); Cocaine Screen Urine Negative (Negative); Opiate Screen Urine Negative (Negative); PCP Screen Urine Negative (Negative); THC Screen Urine Negative (Negative)
[2021-07-17 00:23] LABS: Partial Thromboplastin Time 24.9 SECONDS (23.9-36.7)
[2021-07-17] MEDS: iohexol 350 mg/mL 100 mL Btl IV (00:41)
[2021-07-17 01:18] VITALS: BP 133/71; PULSE 87; RESP 18; O2SAT 98
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
== END 2021-07-17 01:22 | disposition home or self-care (01) ==
PROVIDERS: Emergency Provider Emergency Medicine; PCP Nurse Practitioner
DX: R53.1 Weakness (principal); G45.9 Transient cerebral ischemic attack, unspecified; I65.23 Occlusion and stenosis of bilateral carotid arteries; J43.9 Emphysema, unspecified; J44.9 Chronic obstructive pulmonary disease, unspecified; E11.9 Type 2 diabetes mellitus without complications; F17.290 Nicotine dependence, other tobacco product, uncomplicated
CPT/HCPCS: 36415; 36416; 70450; 70496; 70498; 80053; 80306; 81003; 82962; 85025; 85610; 85730; 99283; Q9967

== ENCOUNTER → 2021-07-25 14:29 | Outpatient (BNVA) | payer MEDICARE, MEDICAID, SELFPAY ==
[2021-05-14 08:58] VITALS: BP 125/70; BMI 32.3
== END ==
PROVIDERS: PCP Nurse Practitioner; Visit Provider Nurse Practitioner Family
DX: E11.69 Type 2 diabetes mellitus with other specified complication (principal); K86.9 Disease of pancreas, unspecified
CPT/HCPCS: 80053; 80061; 83036; 85025

== ENCOUNTER → 2021-08-07 09:35 | Outpatient (BNVA) | payer MEDICARE, MEDICAID, SELFPAY ==
[2021-05-14 08:58] VITALS: BP 125/70; BMI 32.3
== END ==
PROVIDERS: PCP Nurse Practitioner; Visit Provider Nurse Practitioner Psychiatric/Mental Health
DX: F25.1 Schizoaffective disorder, depressive type (principal); F12.20 Cannabis dependence, uncomplicated; F03.90 Unspecified dementia, unspecified severity, without behavioral disturbance, psychotic disturbance, mood disturbance, and anxiety; J43.9 Emphysema, unspecified
CPT/HCPCS: 99213

== ENCOUNTER 2021-08-17 14:42 | Emergency (ER) | payer MEDICARE, MEDICAID, SELFPAY ==
[2021-05-14 08:58] VITALS: BP 125/70; BMI 32.3
[2021-08-17 15:09] VITALS: BP 140/75; PULSE 110; RESP 24; O2SAT 95; BMI 32.0
--- NOTE | 2021-08-17 15:16 | XR_ITS ---
WS: [id number] Portable AP upright chest, 08/17/2021 Clinical Data: dyspnea/cough Comparison: Portable chest, 06/30/2020. Findings: No nodules, masses or effusions are seen. The heart is normal. The pulmonary vascularity is not increased. No pneumonia or pneumothorax is seen. There is an anterior cervical disc fusion. XR/XR chest 1V portable [id number] Impression: Negative chest.
--- NOTE | 2021-08-17 15:16 | ECG_ITS ---
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 Measurements Intervals [place] Rate: 99 P: 60 NM: 128 QRS: 28 QRSD: 86 T: 37 QT: 333 QTc: 428 Interpretive Statements SINUS RHYTHM Compared to ECG 01/16/2021 20:29:52 Sinus bradycardia no longer present Electronically Signed On 08-17-2021 20:22:02 CDT by Regina Carpio M.D. [id number]
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
[2021-08-17] MEDS: sodium chloride 0.9% 1,000 ML 999 ML IV (15:54)
[2021-08-17] MEDS: ondansetron 2 mg/ML SDV 2 mL 4 MG IVP (15:54)
[2021-08-17 15:55] VITALS: BP 140/75; PULSE 110; RESP 24; O2SAT 95
[2021-08-17 16:07] LABS: Basophils # 0.1 10^3/uL (0.0-0.1); Basophils % 0.5 %; Eosinophils # 0.2 10^3/uL (0.0-0.8); Eosinophils % 1.1 %; Hematocrit 50.7 % (37.0-47.0); Hemoglobin 16.3 g/dL (11.5-15.3); Lymphocytes # 1.8 10^3/uL (0.8-4.8); Lymphocytes % 13.9 %; Mean Corpuscular HGB Conc 32.1 g/dL (30.0-36.0); Mean Corpuscular Hemoglobin 31.1 pg (28.0-34.0); Mean Corpuscular Volume 96.8 fl (81-99); Mean Platelet Volume 10.9 fL (7.4-10.4); Monocytes # 0.4 10^3/uL (0.2-0.9); Monocytes % 2.9 %; Neutrophils # 10.76 10^3/uL (1.8-7.7); Neutrophils % 81.1 %; Nucleated Red Blood Cells % 0 %; Platelet Count 271 10^3/cmm (130-400); Red Blood Count 5.24 10^6/uL (4.1-5.3); Red Cell Distribution Width 13.4 % (12.1-15.1); White Blood Count 13.3 10^3/uL (4.0-10.0)
[2021-08-17 16:18] LABS: Add Urine Microscopic? YES; Bilirubin Urine Neg (Negative); Blood Urine Neg (Negative); Glucose Urine UA 4+ (Normal); Ketones Urine 1+ (Negative); Leukocyte Esterase Urine Negative (Negative); Nitrate Urine Negative (Negative); Protein Urine Neg (Negative); Urine Appearance SL Hazy (CLEAR); Urine Color Yellow (Yellow); Urobilinogen Urine Norm (Negative); pH Urine 5 (5-7)
[2021-08-17 16:19] LABS: RBC Urine 0-4 /hpf (0-2)
[2021-08-17 16:20] LABS: Bacteria Urine 1+ /hpf; Mucus Urine 1+ /hpf
[2021-08-17 16:21] LABS: Add Urine Culture? No
[2021-08-17 16:31] LABS: Alanine Aminotransferase 16 U/L (0-33); Albumin Level 4.8 g/dL (3.5-5.2); Alkaline Phosphatase 144 IU/L (35-105); Aspartate Amino Transferase 18 U/L (0-32); Blood Urea Nitrogen 16 mg/dL (6-20); Calcium 10.3 mg/dL (8.5-10.5); Carbon Dioxide 21 mmol/L (22-29); Chloride 101 mmol/L (98-107); Glomerular Filtration Rate 64.8 mL/min (90-130); Glucose 133 mg/dL (65-115); Osmolality Calculated 285 mOsm/kg (285-295); Sodium 136 mmol/L (136-145); Total Bilirubin 0.4 mg/dL (0.15-1.2); Total Protein 7.8 g/dL (6.6-8.7)
[2021-08-17 16:36] LABS: Anion Gap 17.9 (5-19); Potassium 3.9 mmol/L (3.5-5.1)
[2021-08-17 18:10] VITALS: BP 140/75; PULSE 110; O2SAT 95
== END 2021-08-17 18:12 | disposition home or self-care (01) ==
PROVIDERS: Emergency Provider Family Medicine; PCP Nurse Practitioner
DX: J44.9 Chronic obstructive pulmonary disease, unspecified (principal); M79.10 Myalgia, unspecified site; F17.210 Nicotine dependence, cigarettes, uncomplicated
CPT/HCPCS: 71045; 80053; 81001; 85025; 93005; 96361; 96374; 99284; J2405; J7030

== ENCOUNTER 2021-09-05 17:06 | Emergency (ER) | payer MEDICARE, MEDICAID, SELFPAY ==
[2021-05-14 08:58] VITALS: BP 125/70; BMI 32.3
[2021-09-05 17:07] VITALS: BMI 32.2
[2021-09-05 17:13] VITALS: PULSE 74; RESP 18; O2SAT 95
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
--- NOTE | 2021-09-05 18:20 | CTR_ITS ---
PROCEDURE INFORMATION: Exam: CT Cervical Spine Without Contrast Exam date and time: 09/05/2021 6:43 PM Age: 56 years old Clinical indication: Injury or trauma; Fall; Blunt trauma; Prior surgery; Surgery date: 6+ months TECHNIQUE: Imaging protocol: Computed tomography images of the cervical spine without contrast. Radiation optimization: All CT scans at this facility use at least one of these dose optimization techniques: automated exposure control; mA and/or kV adjustment per patient size (includes targeted exams where dose is matched to clinical indication); or iterative reconstruction. COMPARISON: CT cervical spine w con [id number] 08/13/2019 11:01 AM RADIATION DOSE METRICS: Total DLP (mGy-cm): 715.37 FINDINGS: Bones/joints: Intact ACDF hardware involving the C5-C7 segment with intervertebral disc spacers. No acute fracture. Normal alignment. Discs/Spinal canal/Neural foramina: No significant disc protrusion. No severe spinal canal stenosis. No significant neural foraminal narrowing. Lungs: Lung apices are normal. Soft tissues: Unremarkable. CT/CT cervical spin wo con* [id number] IMPRESSION: No acute findings.
--- NOTE | 2021-09-05 18:20 | CTR_ITS ---
PROCEDURE INFORMATION: Exam: CT Head Without Contrast Exam date and time: 09/05/2021 6:40 PM Age: 56 years old Clinical indication: Injury or trauma; Fall; Abrasion; Head, generalized; Injury date: 09/05/2021; Prior surgery; Surgery date: 6+ months; Surgery type: Dural av fistula TECHNIQUE: Imaging protocol: Computed tomography of the head without contrast. Radiation optimization: All CT scans at this facility use at least one of these dose optimization techniques: automated exposure control; mA and/or kV adjustment per patient size (includes targeted exams where dose is matched to clinical indication); or iterative reconstruction. COMPARISON: CT head wo con* [id number] 07/16/2021 9:55 PM RADIATION DOSE METRICS: Total DLP (mGy-cm): 691.01 FINDINGS: Brain: No hemorrhage. No edema. No significant white matter disease. No mass effect. Cerebral ventricles: No ventriculomegaly. Paranasal sinuses: Visualized sinuses are unremarkable. No fluid levels. Mastoid air cells: Visualized mastoid air cells are well aerated. Bones/joints: Unremarkable. No acute fracture. Soft tissues: Unremarkable. CT/CT head wo con* [id number] IMPRESSION: No acute intracranial abnormality.
--- NOTE | 2021-09-05 18:20 | CTR_ITS ---
PROCEDURE INFORMATION: Exam: CT Pelvis Without Contrast; Skeletal Exam date and time: 09/05/2021 6:58 PM Age: 56 years old Clinical indication: Injury or trauma; Fall; Blunt trauma (contusions or hematomas); Does not apply; Coccyx TECHNIQUE: Imaging protocol: Computed tomography images of the pelvis without contrast. Exam focused on the skeletal structures. Radiation optimization: All CT scans at this facility use at least one of these dose optimization techniques: automated exposure control; mA and/or kV adjustment per patient size (includes targeted exams where dose is matched to clinical indication); or iterative reconstruction. COMPARISON: CT abdomen pelvis w con* [id number] 08/10/2020 10:56 PM RADIATION DOSE METRICS: Total DLP (mGy-cm): 455.5 FINDINGS: Bones/joints: Unremarkable. No acute fracture. No dislocation. Soft tissues: Unremarkable. CT/CT pelvis wo con [id number] IMPRESSION: No acute findings.
--- NOTE | 2021-09-05 18:20 | XRR_ITS ---
PROCEDURE INFORMATION: Exam: XR Left Femur Exam date and time: 09/05/2021 7:32 PM Age: 56 years old Clinical indication: Pain; Thigh; Left; Additional info: Fall TECHNIQUE: Imaging protocol: XR Left femur. Views: 2 views. COMPARISON: CT pelvis con [id number] 09/05/2021 6:58 PM FINDINGS: Bones/joints: Unremarkable. No acute fracture. Soft tissues: Unremarkable. XR/XR femur LT min 2V* [id number] IMPRESSION: No acute findings.
--- NOTE | 2021-09-05 18:20 | CTR_ITS ---
PROCEDURE INFORMATION: Exam: CT Thoracic Spine Without Contrast Exam date and time: 09/05/2021 6:46 PM Age: 56 years old Clinical indication: Injury or trauma; Fall; Blunt trauma (contusions or hematomas) TECHNIQUE: Imaging protocol: Computed tomography images of the thoracic spine without contrast. Radiation optimization: All CT scans at this facility use at least one of these dose optimization techniques: automated exposure control; mA and/or kV adjustment per patient size (includes targeted exams where dose is matched to clinical indication); or iterative reconstruction. COMPARISON: CT cervical spin wo con* [id number] 09/05/2021 6:43 PM RADIATION DOSE METRICS: Total DLP (mGy-cm): 1177.15 FINDINGS: Vertebrae: No acute fracture. Normal alignment. Discs/Spinal canal/Neural foramina: No significant disc protrusion. No severe spinal canal stenosis. No significant neural foraminal narrowing. Soft tissues: Unremarkable. CT/CT thoracic spin wo con* [id number] IMPRESSION: No acute findings.
--- NOTE | 2021-09-05 18:20 | XRR_ITS ---
PROCEDURE INFORMATION: Exam: XR Left Knee Exam date and time: 09/05/2021 7:38 PM Age: 56 years old Clinical indication: Pain; Knee; Left; Additional info: Fall TECHNIQUE: Imaging protocol: XR Left knee. Views: 1 or 2 views. COMPARISON: CR (LOW EXM, ) 09/05/2021 7:32 PM FINDINGS: Bones/joints: Osseous structures are intact. Negative for fracture. Joint spaces are preserved. Soft tissues: Normal. XR/XR knee LT 1-2V [id number] IMPRESSION: No acute findings.
--- NOTE | 2021-09-05 18:20 | CTR_ITS ---
PROCEDURE INFORMATION: Exam: CT Lumbar Spine Without Contrast Exam date and time: 09/05/2021 6:53 PM Age: 56 years old Clinical indication: Injury or trauma; Fall; Blunt trauma (contusions or hematomas) TECHNIQUE: Imaging protocol: Computed tomography images of the lumbar spine without contrast. Radiation optimization: All CT scans at this facility use at least one of these dose optimization techniques: automated exposure control; mA and/or kV adjustment per patient size (includes targeted exams where dose is matched to clinical indication); or iterative reconstruction. COMPARISON: MR lumbar spine wo con* [id number] 09/14/2019 10:55 PM RADIATION DOSE METRICS: Total DLP (mGy-cm): 2135.99 FINDINGS: Vertebrae: No acute fracture. Normal alignment. Discs/Spinal canal/Neural foramina: No significant disc protrusion. No severe spinal canal stenosis. No significant neural foraminal narrowing. Soft tissues: Unremarkable. CT/CT lumbar spine wo con* [id number] IMPRESSION: No acute findings.
[2021-09-05 18:23] VITALS: O2SAT 94
[2021-09-05] MEDS: acetaminophen-codeine 300-30mg Tablet 1 TAB PO (19:10)
[2021-09-05 21:00] VITALS: BP 115/70; PULSE 65; RESP 16; TEMP 36.6; O2SAT 97
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
== END 2021-09-05 22:28 | disposition home or self-care (01) ==
PROVIDERS: Emergency Provider Emergency Medicine; PCP Nurse Practitioner
DX: M54.50 Low back pain, unspecified (principal); M25.562 Pain in left knee; M79.652 Pain in left thigh; R51.9 Headache, unspecified; W54.8XXA Other contact with dog, initial encounter
CPT/HCPCS: 70450; 72125; 72128; 72131; 72192; 73552; 73560; 99283; E0114

== ENCOUNTER → 2021-09-12 12:11 | Outpatient (BNVA) | payer MEDICARE, MEDICAID, SELFPAY ==
[2021-05-14 08:58] VITALS: BP 125/70; BMI 32.3
== END ==
PROVIDERS: PCP Nurse Practitioner; Visit Provider Nurse Practitioner
DX: M54.9 Dorsalgia, unspecified (principal); M79.7 Fibromyalgia; E11.69 Type 2 diabetes mellitus with other specified complication; K86.9 Disease of pancreas, unspecified; J44.9 Chronic obstructive pulmonary disease, unspecified
CPT/HCPCS: 72100; 72220

== ENCOUNTER → 2021-09-25 10:07 | Outpatient (BNVA) | payer MEDICARE, MEDICAID, SELFPAY ==
[2021-05-14 08:58] VITALS: BP 125/70; BMI 32.3
== END ==
PROVIDERS: PCP Nurse Practitioner; Visit Provider Nurse Practitioner Psychiatric/Mental Health
DX: F25.1 Schizoaffective disorder, depressive type (principal); F12.20 Cannabis dependence, uncomplicated; F03.90 Unspecified dementia, unspecified severity, without behavioral disturbance, psychotic disturbance, mood disturbance, and anxiety; Z79.899 Other long term (current) drug therapy; Z51.81 Encounter for therapeutic drug level monitoring; J44.9 Chronic obstructive pulmonary disease, unspecified; E85.4 Organ-limited amyloidosis; I68.0 Cerebral amyloid angiopathy; G37.9 Demyelinating disease of central nervous system, unspecified
CPT/HCPCS: 80053; 80178; 99213

== ENCOUNTER → 2021-11-05 11:43 | Outpatient (BNVA) | payer MEDICARE, MEDICAID, SELFPAY ==
[2021-11-05 08:56] VITALS: BP 125/70; BMI 32.3
== END ==
PROVIDERS: PCP Nurse Practitioner; Visit Provider Nurse Practitioner
DX: M79.642 Pain in left hand (principal)
CPT/HCPCS: 73130

== ENCOUNTER 2021-12-05 18:13 | Emergency (ER) | payer MEDICARE, MEDICAID, SELFPAY ==
[2021-11-05 08:56] VITALS: BP 125/70; BMI 32.3
[2021-12-05 18:30] VITALS: BP 104/57; PULSE 70; RESP 16; TEMP 35.9; O2SAT 94
--- NOTE | 2021-12-05 18:36 | XRR_ITS ---
PROCEDURE INFORMATION: Exam: XR Left Elbow Exam date and time: 12/05/2021 6:43 PM Age: 56 years old Clinical indication: Injury or trauma; Fall; Blunt trauma (contusions or hematomas); Elbow; Left TECHNIQUE: Imaging protocol: Radiologic exam of the Left elbow. Views: 3 or more views. COMPARISON: No relevant prior studies available. FINDINGS: Bones/joints: Normal. Soft tissues: Normal. XR/XR elbow LT min 3V* [id number] IMPRESSION: No acute findings.
--- NOTE | 2021-12-05 18:36 | XRR_ITS ---
PROCEDURE INFORMATION: Exam: XR Right Knee Exam date and time: 12/05/2021 6:50 PM Age: 56 years old Clinical indication: Injury or trauma; Fall; Blunt trauma; Knee; Right TECHNIQUE: Imaging protocol: Radiologic exam of the Right knee. Views: 3 views. COMPARISON: No relevant prior studies available. FINDINGS: Bones/joints: Normal. Soft tissues: Normal. XR/XR knee RT 3V* [id number] IMPRESSION: No acute findings.
--- NOTE | 2021-12-05 18:38 | CTR_ITS ---
PROCEDURE INFORMATION: Exam: CT Head Without Contrast Exam date and time: 12/05/2021 7:35 PM Age: 56 years old Clinical indication: Injury or trauma; Fall; Blunt trauma (contusions or hematomas); Prior surgery; Surgery date: 6+ months; Surgery type: Fistula-- per patient TECHNIQUE: Imaging protocol: Computed tomography of the head without contrast. Radiation optimization: All CT scans at this facility use at least one of these dose optimization techniques: automated exposure control; mA and/or kV adjustment per patient size (includes targeted exams where dose is matched to clinical indication); or iterative reconstruction. COMPARISON: CT head wo con* [id number] 09/05/2021 6:40 PM RADIATION DOSE METRICS: Total DLP (mGy-cm): 976.28 FINDINGS: Brain: Normal. No hemorrhage. Unremarkable white matter. No mass effect. Cerebral ventricles: No ventriculomegaly. Paranasal sinuses: Visualized sinuses are unremarkable. No fluid levels. Mastoid air cells: Visualized mastoid air cells are well aerated. Bones/joints: Unremarkable. No acute fracture. Soft tissues: Unremarkable. CT/CT head wo con* [id number] IMPRESSION: No acute intracranial abnormality.
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
[2021-12-05 19:57] VITALS: BP 110/70; PULSE 61; RESP 16; O2SAT 95
== END 2021-12-05 20:19 | disposition home or self-care (01) ==
PROVIDERS: Emergency Provider Emergency Medicine; PCP Nurse Practitioner
DX: S09.90XA Unspecified injury of head, initial encounter (principal); Z79.82 Long term (current) use of aspirin; F17.210 Nicotine dependence, cigarettes, uncomplicated; J44.9 Chronic obstructive pulmonary disease, unspecified; E11.9 Type 2 diabetes mellitus without complications; W19.XXXA Unspecified fall, initial encounter
CPT/HCPCS: 70450; 73080; 73562; 99284

== ENCOUNTER → 2021-12-12 15:46 | Outpatient (BNVA) | payer MEDICARE, MEDICAID, SELFPAY ==
[2021-11-05 08:56] VITALS: BP 125/70; BMI 32.3
== END ==
PROVIDERS: PCP Nurse Practitioner; Visit Provider Specialist
DX: G37.9 Demyelinating disease of central nervous system, unspecified (principal); E85.4 Organ-limited amyloidosis; I68.0 Cerebral amyloid angiopathy; F25.1 Schizoaffective disorder, depressive type; F17.210 Nicotine dependence, cigarettes, uncomplicated
CPT/HCPCS: 99214

== ENCOUNTER → 2021-12-14 09:40 | Outpatient (BNVA) | payer MEDICARE, MEDICAID, SELFPAY ==
[2021-11-05 08:56] VITALS: BP 125/70; BMI 32.3
== END ==
PROVIDERS: PCP Nurse Practitioner; Visit Provider Nurse Practitioner
DX: E55.9 Vitamin D deficiency, unspecified (principal); E11.69 Type 2 diabetes mellitus with other specified complication; K86.9 Disease of pancreas, unspecified; J43.9 Emphysema, unspecified; I10 Essential (primary) hypertension; R51.9 Headache, unspecified; M51.37 Other intervertebral disc degeneration, lumbosacral region; E78.5 Hyperlipidemia, unspecified
CPT/HCPCS: 80053; 80061; 82306; 83036; 84443

== ENCOUNTER → 2022-01-01 11:28 | Outpatient (BNVA) | payer MEDICARE, MEDICAID, SELFPAY ==
[2021-11-05 08:56] VITALS: BP 125/70; BMI 32.3
== END ==
PROVIDERS: PCP Nurse Practitioner; Referring Provider Specialist; Visit Provider Specialist
DX: R56.9 Unspecified convulsions (principal); G37.9 Demyelinating disease of central nervous system, unspecified; E85.4 Organ-limited amyloidosis; I68.0 Cerebral amyloid angiopathy; F03.90 Unspecified dementia, unspecified severity, without behavioral disturbance, psychotic disturbance, mood disturbance, and anxiety
CPT/HCPCS: 95812; 95816

== ENCOUNTER 2022-01-09 20:42 | Emergency (ER) | payer MEDICARE, MEDICAID, SELFPAY ==
[2021-11-05 08:56] VITALS: BP 125/70; BMI 32.3
[2022-01-09 20:59] VITALS: BMI 28.9
[2022-01-09 21:02] VITALS: BP 108/64; PULSE 70; RESP 16; TEMP 36.8; O2SAT 97
[2022-01-09 23:32] VITALS: BP 108/74; PULSE 80; RESP 16
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
--- NOTE | 2022-01-09 23:44 | XRR_ITS ---
PROCEDURE INFORMATION: Exam: XR Abdomen Exam date and time: 01/09/2022 11:49 PM Age: 56 years old Clinical indication: Abdominal pain; Generalized; Prior surgery; Surgery date: 6+ months; Surgery type: Appendectomy; Patient HX: Abd pain, right flank; Additional info: Abd pain, right flank pain TECHNIQUE: Imaging protocol: Radiologic exam of the abdomen. Views: Frontal supine view of the abdomen. 1 View. COMPARISON: CR XR KUB [id number] 08/22/2020 1:08 AM FINDINGS: Gastrointestinal tract: No over distention of small bowel loops is seen. There is moderate to severe fecal stasis throughout the colon. There are surgical clips around the cecum, which is identified in the right flank, overlying the right iliac crest. Intraperitoneal space: There is no free intraperitoneal air. Organs: No renal or ureteral calculi identified; however, these structures are mostly obscured by overlying colonic contents. Bones/joints: The spine, sacroiliac joints, and hip joints are normal. Soft tissues: The psoas margins are mostly obscured by overlying stool in the colon. XR/XR KUB [id number] IMPRESSION: 1. Moderate to severe fecal burden throughout the colon. Clinical correlation is necessary as to history of constipation. 2. A high-riding cecum with adjacent surgical clips in this patient with history of appendectomy.
[2022-01-09 23:59] LABS: Bilirubin Urine Negative (Negative); Blood Urine Negative (Negative); Glucose Urine UA 4+ (Normal); Ketones Urine Negative (Negative); Leukocyte Esterase Urine Trace; Nitrate Urine Positive; Protein Urine Negative (Negative); Urine Appearance Cloudy (CLEAR); Urine Color Yellow (Yellow); Urobilinogen Urine 0.2 mg/dL (Negative); pH Urine 5.5 (5-7)
[2022-01-10] LABS: Add Urine Microscopic? YES
[2022-01-10] MEDS: ketorolac 30 mg/mL INJ 15 MG IVP (00:03)
[2022-01-10] MEDS: ondansetron 2 mg/ML SDV 2 mL 4 MG IVP (00:04)
[2022-01-10 00:06] LABS: Add Urine Culture? Yes; Bacteria Urine 4+ /hpf; Mucus Urine 1+ /hpf; RBC Urine 0-4 /hpf (0-2); Squamous Epithelial Cell Urine 0-4 /hpf (0-5); WBC Urine TOO NUMEROUS TO CNT /hpf (0-5)
[2022-01-10 00:19] LABS: Basophils # 0.1 10^3/uL (0.0-0.1); Basophils % 1.2 %; Eosinophils # 0.4 10^3/uL (0.0-0.8); Eosinophils % 3.8 %; Hematocrit 44.2 % (37.0-47.0); Hemoglobin 14.3 g/dL (11.5-15.3); Lymphocytes # 4.6 10^3/uL (0.8-4.8); Lymphocytes % 44.3 %; Mean Corpuscular HGB Conc 32.4 g/dL (30.0-36.0); Mean Corpuscular Hemoglobin 30.4 pg (28.0-34.0); Mean Platelet Volume 10.5 fL (7.4-10.4); Monocytes # 0.7 10^3/uL (0.2-0.9); Monocytes % 6.8 %; Neutrophils # 4.52 10^3/uL (1.8-7.7); Neutrophils % 43.5 %; Nucleated Red Blood Cells % 0 %; Platelet Count 260 10^3/cmm (130-400); White Blood Count 10.4 10^3/uL (4.0-10.0)
[2022-01-10] MEDS: cefTRIAXone 1,000 MG in sodium chloride 0.9% (plus) 50 ML 100 MG IV (00:33)
[2022-01-10] MEDS: sodium chloride 0.9% 500 ML 999 ML IV (00:33)
[2022-01-10 00:46] LABS: Alanine Aminotransferase 16 U/L (0-33); Albumin Level 3.8 g/dL (3.5-5.2); Alkaline Phosphatase 112 U/L (35-105); Blood Urea Nitrogen 10 mg/dL (6-20); Calcium 9.3 mg/dL (8.5-10.5); Carbon Dioxide 24 mmol/L (22-29); Chloride 109 mmol/L (98-107); Globulin 2.4 g/dL (1.3-4.6); Glomerular Filtration Rate 74.2 mL/min (90-130); Glucose 138 mg/dL (65-115); Lipase 36 U/L (13-60); Osmolality Calculated 295 mOsm/kg (285-295); Sodium 142 mmol/L (136-145); Total Bilirubin 0.2 mg/dL (0.15-1.2); Total Protein 6.2 g/dL (6.6-8.7)
[2022-01-10 00:47] LABS: Anion Gap 13.1 (5-19)
[2022-01-10 00:48] LABS: Aspartate Amino Transferase 17 U/L (0-32); Potassium 4.1 mmol/L (3.5-5.1)
[2022-01-10 01:33] VITALS: BP 114/59; PULSE 78; RESP 16
[2022-01-10 04:39] LABS: Charge for UA Resulting for Rev
== END 2022-01-10 01:44 | disposition home or self-care (01) ==
PROVIDERS: Emergency Provider Nurse Practitioner Family; PCP Nurse Practitioner
DX: N39.0 Urinary tract infection, site not specified (principal); Z79.82 Long term (current) use of aspirin; Z77.22 Contact with and (suspected) exposure to environmental tobacco smoke (acute) (chronic); J44.9 Chronic obstructive pulmonary disease, unspecified; E11.9 Type 2 diabetes mellitus without complications
CPT/HCPCS: 36415; 74018; 80053; 81001; 81003; 83690; 85025; 87077; 87086; 87186; 96365; 96375; 99284; J0696; J1885; J2405; J7040

== ENCOUNTER → 2022-01-30 11:07 | Outpatient (BNVA) | payer MEDICARE, MEDICAID, SELFPAY ==
[2021-11-05 08:56] VITALS: BP 125/70; BMI 32.3
== END ==
PROVIDERS: PCP Nurse Practitioner; Visit Provider Otolaryngology
DX: S09.91XA Unspecified injury of ear, initial encounter (principal); L29.9 Pruritus, unspecified; X58.XXXA Exposure to other specified factors, initial encounter; F17.210 Nicotine dependence, cigarettes, uncomplicated
CPT/HCPCS: 99203

== ENCOUNTER 2022-02-04 12:43 | Outpatient (CLI) | payer MEDICARE, MEDICAID, SELFPAY ==
[2021-11-05 08:56] VITALS: BP 125/70; BMI 32.3
--- NOTE | 2022-02-04 13:00 | USCV_ITS ---
Nolan Brenna Age: 56 Gender: F : 1965 Exam Date: 02/04/2022 12:55 Ordering Phys: Nina Gaytan DO Technologist: Patti Cordero Exam Location: [facility] [place] Indication: left hand/arm pain with swelling Risk Factors: smoker, previous CVA- Left side affected Previous Vascular Surgery: None Right BP: / Left BP: 129.00 / 75.00 RIGHT LEFT PSV PSV (cm/s) (cm/s) Waveform Waveform Subclavian Proximal 157.0 Triphasic Subclavian Distal 166.0 Triphasic Axillary 159.5 Triphasic Brachial Proximal 85.4 Triphasic Brachial Mid 83.9 Triphasic Brachial at AC 113.4 Triphasic Radial Mid 73.0 Triphasic Radial at Wrist 84.1 Ulnar Mid 49.6 Biphasic Ulnar at Wrist 152.9 Biphasic Radial/Brachial Index 1.1 Ulnar/Brachial Index 0.91 FINDINGS wrist radial - 138, wrist ulnar 138. Patient states left hand turns white intermittently. Transducer pressure caused severe pain. Normal/near normal Doppler waveforms and velocities in the left upper extremity arteries. RBI of 1.1 UBI of 0.91 CONCLUSIONS 1. Normal radial/brachial and ulnar brachial indicis 2. Normal Doppler flow velocities and Doppler waveforms. No significant arterial obstruction in the left upper extremity arteries, based on the above findings Dr Regina Carpio MD [facility] (Electronically Signed) Final Date: 05 February 2022 07:36 S
== END 2022-02-04 12:44 | disposition home or self-care (01) ==
LOC: RAD 12:43
PROVIDERS: PCP Nurse Practitioner; Visit Provider Emergency Medicine
DX: M79.642 Pain in left hand (principal)
CPT/HCPCS: 93931

== ENCOUNTER → 2022-02-05 13:52 | Outpatient (BNVA) | payer MEDICARE, MEDICAID, SELFPAY ==
[2021-11-05 08:56] VITALS: BP 125/70; BMI 32.3
== END ==
PROVIDERS: PCP Nurse Practitioner; Visit Provider Nurse Practitioner
DX: M79.7 Fibromyalgia (principal); E11.69 Type 2 diabetes mellitus with other specified complication; K86.9 Disease of pancreas, unspecified
CPT/HCPCS: 81000

== ENCOUNTER → 2022-02-25 13:01 | Outpatient (BNVA) | payer MEDICARE, MEDICAID, SELFPAY ==
[2021-11-05 08:56] VITALS: BP 125/70; BMI 32.3
== END ==
PROVIDERS: PCP Nurse Practitioner; Visit Provider Specialist
DX: G37.9 Demyelinating disease of central nervous system, unspecified (principal); E85.4 Organ-limited amyloidosis; I68.0 Cerebral amyloid angiopathy; F25.1 Schizoaffective disorder, depressive type; G43.711 Chronic migraine without aura, intractable, with status migrainosus; R56.9 Unspecified convulsions
CPT/HCPCS: 99214

== ENCOUNTER → 2022-04-01 14:57 | Outpatient (BNVA) | payer MEDICARE, MEDICAID, SELFPAY ==
[2022-03-20 13:20] VITALS: BP 125/70; BMI 32.3
== END ==
PROVIDERS: PCP Nurse Practitioner; Visit Provider Specialist
DX: G43.711 Chronic migraine without aura, intractable, with status migrainosus (principal); G37.9 Demyelinating disease of central nervous system, unspecified; F03.90 Unspecified dementia, unspecified severity, without behavioral disturbance, psychotic disturbance, mood disturbance, and anxiety; F25.1 Schizoaffective disorder, depressive type
CPT/HCPCS: 99214

== ENCOUNTER 2022-04-02 01:00 | Outpatient (CLI) | payer MEDICARE, MEDICAID, SELFPAY ==
[2022-03-20 13:20] VITALS: BP 125/70; BMI 32.3
== END 2022-04-02 23:00 | disposition home or self-care (01) ==
LOC: RAD 05-14 15:05
PROVIDERS: PCP Nurse Practitioner; Visit Provider Specialist
DX: I10 Essential (primary) hypertension (principal); E55.9 Vitamin D deficiency, unspecified; E11.69 Type 2 diabetes mellitus with other specified complication; K86.9 Disease of pancreas, unspecified
CPT/HCPCS: 80053; 80061; 81000; 82306; 82607; 83036; 84443; 85025

== ENCOUNTER 2022-04-12 03:34 | Emergency (ER) | payer MEDICARE, MEDICAID, SELFPAY ==
[2022-03-20 13:20] VITALS: BP 125/70; BMI 32.3
[2022-04-12 03:44] VITALS: BP 112/72; PULSE 98; RESP 18; TEMP 37.1; O2SAT 99; BMI 24.4
--- NOTE | 2022-04-12 03:46 | CTR_ITS ---
PROCEDURE INFORMATION: Exam: CT Thoracic Spine Without Contrast Exam date and time: 04/12/2022 4:29 AM Age: 56 years old Clinical indication: Injury or trauma; Blunt trauma (contusions or hematomas); Patient HX: Syncope with fall at home this a. M. Positive loc. Bruise to forehead. C/O head, neck, and upper back pain. TECHNIQUE: Imaging protocol: Computed tomography of the thoracic spine without contrast. Radiation optimization: All CT scans at this facility use at least one of these dose optimization techniques: automated exposure control; mA and/or kV adjustment per patient size (includes targeted exams where dose is matched to clinical indication); or iterative reconstruction. COMPARISON: CT thoracic spin wo con* [id number] 09/05/2021 6:46 PM RADIATION DOSE METRICS: Total DLP (mGy-cm): 605.33 FINDINGS: Bones/joints: No acute fracture. Normal alignment. No significant disc protrusion. No severe spinal canal stenosis. Soft tissues: Unremarkable. CT/CT thoracic spin wo con* [id number] IMPRESSION: No acute fracture.
--- NOTE | 2022-04-12 03:46 | ECG_ITS ---
[facility] Test Date: 2022-04-12 Pat Name: Brenna Francisco Department: Room: Gender: Female Receiving Checker: : 1965 Requested By: Daniella Ortiz Order Number: [id number] Sydnee MD: Nallely Chen M.D. Measurements Intervals [place] Rate: 57 P: 75 AK: 135 QRS: 68 QRSD: 85 T: 66 QT: 420 QTc: 412 Interpretive Statements SINUS BRADYCARDIA LOW QRS VOLTAGE IN PRECORDIAL LEADS [QRS DEFLECTION < 1.0 mV IN CHEST LEADS] Compared to ECG 08/17/2021 15:46:29 Low QRS voltage now present Sinus rhythm no longer present Electronically Signed On 04-12-2022 19:08:11 POACHER OPERATOR by Nallely Chen M.D. [id number]
--- NOTE | 2022-04-12 03:46 | CTR_ITS ---
PROCEDURE INFORMATION: Exam: CT Cervical Spine Without Contrast Exam date and time: 04/12/2022 4:26 AM Age: 56 years old Clinical indication: Injury or trauma; Blunt trauma; Prior surgery; Surgery type: Cervical fusion; Patient HX: Syncope with fall at home this a. M. Positive loc. Bruise to forehead. C/O head, neck, and upper back pain. TECHNIQUE: Imaging protocol: Computed tomography of the cervical spine without contrast. Radiation optimization: All CT scans at this facility use at least one of these dose optimization techniques: automated exposure control; mA and/or kV adjustment per patient size (includes targeted exams where dose is matched to clinical indication); or iterative reconstruction. COMPARISON: CT cervical spin wo con* [id number] 09/05/2021 6:43 PM RADIATION DOSE METRICS: Total DLP (mGy-cm): 145.77 FINDINGS: Bones/joints: No acute fracture or acute subluxation identified. Very severe diffuse cervical degenerative change with loss of disc space and large osteophytes throughout. Lungs: Lung apices are normal. Soft tissues: Unremarkable. Other findings: A C4-6 fusion appears intact. Overall, no significant change has occurred from 09/05/2021. CT/CT cervical spin wo con* [id number] IMPRESSION: Chronic findings above, negative for acute fracture or significant change from 09/05/2021.
--- NOTE | 2022-04-12 03:46 | CTR_ITS ---
PROCEDURE INFORMATION: Exam: CT Head Without Contrast Exam date and time: 04/12/2022 4:24 AM Age: 56 years old Clinical indication: Injury or trauma; Blunt trauma (contusions or hematomas); Syncope and collapse; Prior surgery; Surgery type: Av fistula; Patient HX: Syncope with fall at home this a. M. Positive loc. Bruise to forehead. C/O head, neck, and upper back pain. TECHNIQUE: Imaging protocol: Computed tomography of the head without contrast. Radiation optimization: All CT scans at this facility use at least one of these dose optimization techniques: automated exposure control; mA and/or kV adjustment per patient size (includes targeted exams where dose is matched to clinical indication); or iterative reconstruction. COMPARISON: CT head wo con* [id number] 12/05/2021 7:35 PM RADIATION DOSE METRICS: Total DLP (mGy-cm): 919.88 FINDINGS: Brain: No focal hemorrhage or midline shift is identified. Cerebral ventricles: No ventriculomegaly or evidence of acute hydrocephalus. Paranasal sinuses: The partially assessed sinuses are grossly clear. Mastoid air cells: Visualized mastoid air cells are well aerated. Bones/joints: No displaced skull fracture is noted. Soft tissues: Unremarkable. CT/CT head wo con* [id number] IMPRESSION: No acute intracranial abnormality.
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
--- NOTE | 2022-04-12 03:59 | XRR_ITS ---
PROCEDURE INFORMATION: Exam: XR Left Shoulder Exam date and time: 04/12/2022 4:15 AM Age: 56 years old Clinical indication: Injury or trauma; Blunt trauma (contusions or hematomas); Left; Patient HX: Syncope with fall at home. Positive loc. C/O shoulder pain. TECHNIQUE: Imaging protocol: Radiologic exam of the Left shoulder. Views: 2 or more views. COMPARISON: CT cervical spin wo con* [id number] 09/05/2021 6:43 PM FINDINGS: Bones/joints: No acute fracture. No dislocation. Soft tissues: No radiopaque foreign body. XR/XR shoulder LT min 2V* [id number] IMPRESSION: No acute findings.
[2022-04-12 04:06] VITALS: BP 98/48; PULSE 66; RESP 14; O2SAT 97
[2022-04-12 04:07] LABS: Basophils # 0.1 10^3/uL (0.0-0.1); Eosinophils # 0.2 10^3/uL (0.0-0.8); Eosinophils % 2.3 %; Hematocrit 40.6 % (37.0-47.0); Hemoglobin 12.9 g/dL (11.5-15.3); Lymphocytes % 41.4 %; Mean Corpuscular HGB Conc 31.8 g/dL (30.0-36.0); Mean Corpuscular Hemoglobin 30.6 pg (28.0-34.0); Mean Corpuscular Volume 96.2 fl (81-99); Mean Platelet Volume 10.8 fL (7.4-10.4); Monocytes # 0.8 10^3/uL (0.2-0.9); Monocytes % 7.9 %; Neutrophils # 4.51 10^3/uL (1.8-7.7); Neutrophils % 47.1 %; Nucleated Red Blood Cells % 0 %; Platelet Count 256 10^3/cmm (130-400); Red Blood Count 4.22 10^6/uL (4.1-5.3); Red Cell Distribution Width 13.4 % (12.1-15.1); White Blood Count 9.6 10^3/uL (4.0-10.0)
[2022-04-12 04:40] LABS: Alanine Aminotransferase 9 U/L (0-33); Alkaline Phosphatase 111 U/L (35-105); Anion Gap 10.9 (5-19); Aspartate Amino Transferase 13 U/L (0-32); Blood Urea Nitrogen 12 mg/dL (6-20); Calcium 8.9 mg/dL (8.5-10.5); Carbon Dioxide 24 mmol/L (22-29); Chloride 107 mmol/L (98-107); Globulin 2.3 g/dL (1.3-4.6); Glomerular Filtration Rate 103.4 mL/min (90-130); Glucose 140 mg/dL (65-115); Osmolality Calculated 288 mOsm/kg (285-295); Potassium 3.9 mmol/L (3.5-5.1); Sodium 138 mmol/L (136-145); Total Bilirubin 0.2 mg/dL (0.15-1.2); Total Protein 6.3 g/dL (6.6-8.7)
[2022-04-12] MEDS: sodium chloride 0.9% 1,000 ML 999 ML IV (04:56)
[2022-04-12 05:08] VITALS: PULSE 64; RESP 16; O2SAT 97
== END 2022-04-12 05:24 | disposition home or self-care (01) ==
PROVIDERS: Emergency Provider Emergency Medicine; PCP Nurse Practitioner
DX: R55 Syncope and collapse (principal); M25.512 Pain in left shoulder; Z79.82 Long term (current) use of aspirin; F17.210 Nicotine dependence, cigarettes, uncomplicated; J44.9 Chronic obstructive pulmonary disease, unspecified; E11.9 Type 2 diabetes mellitus without complications
CPT/HCPCS: 70450; 72125; 72128; 73030; 80053; 85025; 93005; 96360; 99285; J7030

== ENCOUNTER 2022-04-26 06:37 | Inpatient (IN) | payer MEDICARE, MEDICAID, SELFPAY ==
[2022-03-20 13:20] VITALS: BP 125/70; BMI 32.3
[2022-04-26 06:40] VITALS: BMI 18.8
[2022-04-26 06:42] VITALS: BP 140/79; PULSE 67; RESP 16; TEMP 36.6; O2SAT 96
[2022-04-26 07:10] LABS: Basophils # 0.2 10^3/uL (0.0-0.1); Basophils % 1.5 %; Eosinophils # 0.2 10^3/uL (0.0-0.8); Hematocrit 45.4 % (37.0-47.0); Hemoglobin 14.6 g/dL (11.5-15.3); Lymphocytes # 3.2 10^3/uL (0.8-4.8); Lymphocytes % 31.3 %; Mean Corpuscular HGB Conc 32.2 g/dL (30.0-36.0); Mean Corpuscular Hemoglobin 31.3 pg (28.0-34.0); Mean Corpuscular Volume 97.4 fl (81-99); Mean Platelet Volume 10.7 fL (7.4-10.4); Monocytes # 0.6 10^3/uL (0.2-0.9); Monocytes % 5.9 %; Neutrophils # 5.97 10^3/uL (1.8-7.7); Neutrophils % 59.1 %; Nucleated Red Blood Cells % 0 %; Platelet Count 275 10^3/cmm (130-400); Red Blood Count 4.66 10^6/uL (4.1-5.3); Red Cell Distribution Width 12.6 % (12.1-15.1); White Blood Count 10.1 10^3/uL (4.0-10.0)
[2022-04-26 07:39] LABS: Alanine Aminotransferase 13 U/L (0-33); Albumin Level 4.5 g/dL (3.5-5.2); Alkaline Phosphatase 104 U/L (35-105); Anion Gap 14.2 (5-19); Aspartate Amino Transferase 15 U/L (0-32); Blood Urea Nitrogen 13 mg/dL (6-20); Calcium 9.7 mg/dL (8.5-10.5); Carbon Dioxide 23 mmol/L (22-29); Chloride 104 mmol/L (98-107); Glomerular Filtration Rate 103.4 mL/min (90-130); Glucose 129 mg/dL (65-115); Osmolality Calculated 286 mOsm/kg (285-295); Potassium 4.2 mmol/L (3.5-5.1); Salicylate 0.4 mg/dL (3-10); Sodium 137 mmol/L (136-145); Total Bilirubin 0.3 mg/dL (0.15-1.2); Total Protein 7.5 g/dL (6.6-8.7)
[2022-04-26 07:46] LABS: Acetaminophen < 5.0 ug/mL (10-30)
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
--- NOTE | 2022-04-26 10:08 | PC.NURSE ---
pt moved to room 7 and switched to Emma VERDUZCO. [id number]
[2022-04-26 10:18] LABS: Add Urine Microscopic? NO; Charge for UA Resulting for Rev
[2022-04-26 10:20] LABS: Urine Color Yellow (Yellow)
[2022-04-26 10:21] LABS: Bilirubin Urine Neg (Negative); Blood Urine Neg (Negative); Glucose Urine UA 4+ (Normal); Ketones Urine Negative (Negative); Leukocyte Esterase Urine Negative (Negative); Nitrate Urine Negative (Negative); Protein Urine Neg (Negative); Specific Gravity, Urine 1.005 (1.005-1.030); Urine Appearance Clear (CLEAR); Urobilinogen Urine Neg (Negative); pH Urine 5 (5-7)
[2022-04-26 10:30] LABS: Amphetamines Screen Urine Negative (Negative); Barbiturates Screen Urine Negative (Negative); Benzodiazepines Screen Urine Negative (Negative); Cocaine Screen Urine Negative (Negative); Opiate Screen Urine Negative (Negative); PCP Screen Urine Negative (Negative); THC Screen Urine Negative (Negative)
[2022-04-26 12:27] VITALS: BP 131/58; PULSE 78; O2SAT 93
[2022-04-26 15:55] VITALS: BP 123/66; PULSE 83; RESP 20; TEMP 36.7; O2SAT 95
[2022-04-26 17:44] LABS: Glucose Point of Care 121 mg/dL (70-110)
[2022-04-26 17:59] VITALS: PULSE 76; RESP 18; O2SAT 98
--- NOTE | 2022-04-26 18:01 | PC.NURSE ---
One time order for ativan was ordered when pt in ER; not given here.
[2022-04-26] MEDS: sertraline 100 mg Tablet PO (18:33)
[2022-04-26] MEDS: propranolol 20 mg Tablet PO (18:33)
[2022-04-26] MEDS: lithium carbonate ER 300 mg Tablet 600 MG PO (18:37)
[2022-04-26] MEDS: acetaminophen 325 mg Tablet 650 MG PO (18:39)
[2022-04-26] MEDS: zonisamide 100 MG Capsule PO (18:58)
--- NOTE | 2022-04-26 19:11 | PC.NURSE ---
Pt admitted today from ER. Reports she didn't think she needed to be on the earth anymore and was then upset when they wouldn't let her leave from the ER and they put her on a hold. She felt this was against her rights. Attempted to help pt understand why they might wanted to have done that but she wasn't receptive to this. Lungs have inspiratory and expiratory wheezed throughout. Reported feeling some shortness of breath. Pt appears in no acute respiratory distress. Occasional moist cough noted. discussed importance of infection control. Pt verbalized her understanding. Pt reported she'd had home health coming in but that stopped in Dec and she doesn't know why because they need them to help with cleaning, meds, etc. Pt reported has hallucinations at times. Sometimes sees ants crawling on her person and hears her neighbors talking outside the house. Wasn't clear if they were really outside the home or not. Denied hallucinations at time of admission. Pt demonstrates weakness on her left side, upper and lower extremities from her stroke. Uses a walker at home for ambulation. One was provided for her here. Her speech is slurred but she is able to make her needs known. Pt uses a brief as she has dribbling. Reports she's had a past attempt at suicide by placing a strap around her neck. This was 15 years ago. Pt does not have teeth and said she eats soft vegetables, but regular meat. She won't eat ground meat.
[2022-04-26 19:21] VITALS: BP 116/78; PULSE 76; RESP 18; TEMP 36.5; O2SAT 94
[2022-04-26 19:34] LABS: Glucose Point of Care 144 mg/dL (70-110)
[2022-04-26] MEDS: albuterol 2.5 mg/3 mL Neb INHALATION (19:55)
[2022-04-26 20:02] VITALS: PULSE 67; RESP 16; O2SAT 94
[2022-04-26] MEDS: pantoprazole DR 40 mg Tablet PO (20:06)
[2022-04-26] MEDS: ARIPiprazole 10 mg Tablet 20 MG PO (20:06)
[2022-04-26] MEDS: atorvastatin 40 mg Tablet 20 MG PO (20:06)
[2022-04-26] MEDS: benztropine 1 mg Tablet PO (20:07)
[2022-04-26] MEDS: trazodone 50 mg Tablet PO (20:10)
[2022-04-26 21:22] LABS: Lithium 0.1 mmol/L (0.6-1.2)
[2022-04-27] VITALS (10 sets, daily range): BP systolic 93–117; BP diastolic 58–78; PULSE 61–87; RESP 15–18; TEMP 36.6–37.1; O2SAT 94–100
[2022-04-27 08:01] LABS: Glucose Point of Care 149 mg/dL (70-110)
[2022-04-27] MEDS: zonisamide 100 MG Capsule PO ×2 (08:35→18:07)
[2022-04-27] MEDS: fenofibrate 145 mg Tablet PO (08:35)
[2022-04-27] MEDS: propranolol 20 mg Tablet PO ×2 (08:35→18:07)
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
[2022-04-27] MEDS: acetaminophen 325 mg Tablet 650 MG PO (08:36)
[2022-04-27] MEDS: albuterol 2.5 mg/3 mL Neb INHALATION ×4 (08:42→22:15)
--- NOTE | 2022-04-27 09:33 | PC.NURSE ---
Pt's AM blood sugar was 149. Sliding scale insulin order changed to low dose. Received order from Dr. Pitt to hold this morning's dose of sliding scale insulin.
[2022-04-27] MEDS: tizanidine 4 mg Tablet PO (11:27)
[2022-04-27 12:25] LABS: Glucose Point of Care 150 mg/dL (70-110)
--- NOTE | 2022-04-27 13:10 | PC.NURSE ---
Received orders from Dr. Pitt to hold pt's insulin unless blood sugar over 180. Pt to have someone bring in her Jardiance as soon as possible. Pt informed. She said she hasn't been able to reach anyone yet, but will continue to try.
[2022-04-27 17:36] LABS: Glucose Point of Care 200 mg/dL (70-110)
[2022-04-27] MEDS: sertraline 100 mg Tablet PO (18:07)
[2022-04-27] MEDS: lithium carbonate ER 300 mg Tablet 600 MG PO (18:07)
[2022-04-27] MEDS: insulin lispro 100 unit/1 mL SUBCUT (18:08)
[2022-04-27 19:58] LABS: Glucose Point of Care 112 mg/dL (70-110)
[2022-04-27] MEDS: pantoprazole DR 40 mg Tablet PO (20:35)
[2022-04-27] MEDS: ARIPiprazole 10 mg Tablet 20 MG PO (20:35)
[2022-04-27] MEDS: benztropine 1 mg Tablet PO (20:35)
[2022-04-27] MEDS: atorvastatin 40 mg Tablet 20 MG PO (20:35)
[2022-04-28 05:11] VITALS: BP 107/70; PULSE 61; RESP 16; TEMP 36.5; O2SAT 95
[2022-04-28] MEDS: loperamide 2 mg Capsule PO (06:08)
[2022-04-28 08:00] VITALS: PULSE 78; RESP 18; O2SAT 97
[2022-04-28 08:07] LABS: Glucose Point of Care 150 mg/dL (70-110)
[2022-04-28] MEDS: albuterol 2.5 mg/3 mL Neb INHALATION (08:13)
[2022-04-28] MEDS: fenofibrate 145 mg Tablet PO (09:03)
[2022-04-28] MEDS: insulin lispro 100 unit/1 mL SUBCUT (09:03)
[2022-04-28] MEDS: propranolol 20 mg Tablet PO (09:04)
[2022-04-28] MEDS: zonisamide 100 MG Capsule PO (09:04)
[2022-04-28 12:44] LABS: Glucose Point of Care 94 mg/dL (70-110)
[2022-04-28 14:00] VITALS: BP 89/54; PULSE 76; RESP 18; TEMP 36.6; O2SAT 95
--- NOTE | 2022-04-28 15:18 | W.PM.NPUDCS ---
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 (9) Dementia: Status: Chronic (10) Cannabis dependence, uncomplicated: Status: Suspected (11) Schizoaffective disorder, depressive type: Status: Chronic Reason for Visit Reason for Visit: SI Brief History: History of Present Illness Brenna Francisco is a 56 year old female who presented to the emergency department with the following report: Chief Complaint: Psychiatric Symptoms Stated Complaint: SI Time Seen by Provider: 04/26/22 06:44 Source: patient Mode of arrival: ambulatory History of Present Illness: 56-year-old female who presents to the emergency room with complaints of depression and suicidal ideation and auditory hallucinations. She tells me she just depressed about her status and life her home relationship with her family and friends she says she has been contemplating suicide although she declines to give me any specifics of a plan. She has previously been admitted to the MPU with auditory hallucinations. She has a history of schizoaffective disorder with depression. She denies any recent medication change she is on aripiprazole 20 mg daily benztropine 1 mg daily. Her last hospitalization was in March 2021 MD complaint: suicidal ideation and feels depressed Duration: intermittent History of same: Yes Relieving factors: none Exacerbating factors: none Associated psychiatric symptoms: depression and suicidal ideation If self harm: admits thoughts of self harm. She was admitted to the neuropsychiatric unit for definitive treatment of those issues. She presents today immediately discussing a desire for discharge. She reports that she was having some rough moments but that she has that happen occasionally and coming to the hospital and getting some sleep was very instrumental in her feeling better. She could not give any cogent reason why she was feeling bad nor why she is feeling better. We agreed that she does have adequate follow-up having significant encounters with [facility] for therapy and she reports that she does have what she needs in place for medication management. She was not sure whether she wanted to make medication changes or not as we discussed her lithium, Zoloft, Abilify all being at some maximum doses. We agreed we would monitor her for 24 hours, reach out to her and see how she is feeling tomorrow and decide whether we would continue with the hospitalization, make changes of medications and/or discharge her to her supportive . Per her 03/27/2021 [facility] inpatient psychiatric evaluation: History of Present Illness Brenna Francisco is a 55 year old female who presented to the emergency department with the following report: Chief Complaint: Psychiatric Symptoms Stated Complaint: SI W/A PLAN Time Seen by Provider: 03/26/21 14:25 Source: patient Mode of arrival: ambulatory Limitations: no limitations History of Present Illness: HPI Narrative: Patient is a 55-year-old female presents to ED today with complaint of suicidal ideations/auditory hallucinations telling her to kill herself. Patient tells me symptoms of been present over the past 3 weeks. She does have a history of schizophrenia. Patient tells me she does have previous suicide attempts. She cannot remember all of her psychiatric medications but believes she is on Abilify, trazodone, and BuSpar. She states she has a medication provider at [facility]. She reports occasional marijuana use but no other drug or alcohol use. MD complaint: suicidal ideation Onset (ago): week(s) Duration: constant Associated psychiatric symptoms: depression, suicidal ideation and auditory hallucinations Associated symptoms: Reports auditory hallucinations, depression and suicidal ideation; Deny visual hallucinations or homicidal ideation Treatments prior to arrival: none. She was admitted to the neuropsychiatric unit for definitive treatment of those issues. She presents today reporting that the voices are getting bad. She reports that she has not been drinking this he denies cigarettes alcohol or other drugs other than marijuana occasionally. She reports that she used to have issues with addiction but has not been the case recently. She reports that she been stressed out recently by some mass that was discovered on examination and. Told her she would be fine but that the mass would end up being the cause of her losing all of her memory. She reports that that really took her for a week. She reports that she is been following up with her PCP. She reports that she can take her medication as prescribed. She denies any substantive changes in her life. Reporting significant same place with a great niece and nephew and a great great nephew reports that they do along well better. The patient voices have been a probiotic and we discussed the benefits and alternatives of increasing intensity proceed as documented in the concern however was that she proceed getting into EPS with increased dosing of Abilify so we discussed whether or not there needed to be a medication change versus increasing the Abilify and adding something for the symptoms from the EPS. An excerpt from her last discharge summary is included below for context. Per her 01/20/21 [facility] inpatient psychiatric discharge summary: Discharge Diagnosis (1) Schizoaffective disorder, depressive type: Status: Chronic (2) Cephalalgia: Status: Chronic (3) 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 (4) Essential (primary) hypertension: Status: Chronic (5) Cannabis dependence, uncomplicated: Status: Suspected Reason for Visit Reason for Visit: SI Brief History: History of Present Illness Brenna Francisco is a 55 year old female with a history of schizoafffective disorder, cannibis dependence, adn fibromyalgia muscle pain who was admitted for worsening command hallucinations to kill herself. The ED note states: HPI Narrative: Ms. Francisco is a 55-year-old lady with complex past psychiatric history presents emergency department due to SI and auditory hallucinations. She reports a poor memory which has been longstanding for her. She thinks that she always hears voices however often times they are in the background. When her psychiatric disorder worsens they become more prominent. She endorses command hallucinations to kill her self. She does have a suicide attempt in her history by strangulation. She has not acted on these thoughts/commands however feels that she is getting worse. She otherwise denies medical complaints. No other specific exacerbating relieving factors identified. She reports compliance with her medication regimen. The patient says she came to the hospital because the voices she hears began to tell her to kill herself. The voices had worsened to the point where she was considering wrapping a cord around my neck and slowly fading away. She says she also sometimes and feels ants crawling on her. She believes that the voices have gotten worse because of the chaos in her home. She says her great niece, her great niece's , and their son has been living at their house since August or September. This is been quite stressful for her. She anticipates they will leave in the next few days. She also says that a number of her cats have gotten sick and , about 5 or 6 of them. This has left her depressed as well. The patient receives services through the [facility]. Arabella Fajardo is her prescriber and her promotional model's name is Betty, although Betty will be leaving soon. This is likely an additional source of stress. The patient has had previous psychiatric hospitalizations and she says they are too numerous to count. The patient says she has about 1 beer per week or a small glass of MD 2020. She says she smokes marijuana nightly to help her sleep. She says that her marijuana card should be in the mail, but she has not received it yet. She says she smokes 1 to 3 packs of cigarettes per day, even though she has COPD. She says that she never smokes while she is on oxygen. We had a conversation about those risks, and the patient is well aware of those dangers. Psychiatric history: As above. Substance use history: As above. Family history: Patient is not familiar with her family history. Psychosocial history: She says she was born in [place] and attended high school in [place]. 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 She has been to her cousin her current for 4 years and they have been together for 13 years. She was once before and has no children. She has been on disability since 1996 for her schizoaffective disorder. Legal history: No legal difficulties. Medical history: The patient says she has COPD, migraine headaches, and diabetes mellitus. She also says I have severe memory loss ?little blood or blood vessels popping in my brain. The note from her promotional model is included to provide additional context: Housekeeping Room Inspector (CSS) traveled from [facility] to clients home in [facility] Client stated upon arrival that she has still been stressed out over the having to deal with the dogs digging under the fence which has caused the other two dogs to escape as well. I will fix one hole and they will turn around and dig another. Client also stated that she will be checking herself in to the stress unit (NPU) today but will be doing it on her terms so the others won't know about it. client stated that she decided to have Ricky ([id number]) come and pick her up for her to run what errands she needs to get done completed and then she will be calling an ambulance to come and get her and take her to [facility]. client stated that it has gotten so bad that Carolyn, Lorena and Tito are driving her crazy and she wants them out of the house as of yesterday. I know that they are the main cause of my stress and me wanting to go on a mental vacation. I want them to leave and they won't leave. client also stated that she feels that her medication is not quite right either. CSS asked client about her depression and client stated that she really hasn't had any change since last week. Some days are still better than others, but states that her health as a lot to do with it. client stated that she doesn't want to eat nor take her medication. Client stated that she had a dream last night that she had hung herself in front of her nephews bedroom. CSS asked client about her anxiety and client stated that her anxiety is overwhelming right now. client stated that having to deal with Isidra and the others has really took a toll on her and she can't handle them being there at the house anymore. I am hoping that Dony tells them to leave while I am gone. Tito keeps eating us out of the home and we have no food in the house. I will not spend my food stamps until they leave because we will not see one daxa of it if they know that there is food in the house. Client stated that she has been spending her morning outside since she had got up this morning just to stay away from them. 1a) Client continues to remain medication compliant but states that she has not taken her medication for today nor had she taken it last night. Client admitted that she doesn't want to take her medicine and knows that she has to but just doesn't want to do it. CSS asked client if she would take it for her because the NPU will have her take her medicine anyway and client stated that she would. 1b) Client continues to use her coping skills as needed and states that she has been spending a lot of time in her bedroom. I will turn my music up to drown out the noise or I will spend most of the day talking with my niece Alison. [facility] informed the client that she would be getting a new promotional model and explained to client that the office was making some changes to the [facility] clientele. [facility] explained to client that she was being moved out of the [place] area and asked if it would be okay for her to have the new CSS tag along for next weeks session. Client stated that that would be totally fine. Client also let [facility] know that once she starts going back to [facility] that she will need to move her sessions back to Wednesdays due to wanting to attend [facility] on Tuesdays and . I just really need to get away from here during the week and I feel that if I can attend [facility] again, it will help with the anxiety and I won't feel like I am going crazy. Being around others in a different atmosphere I feel will be good for me. Client did state that she had almost called [facility] last night because things had gotten so bad. Client stated that she had gotten so stressed that she had done some impulse buying over the internet and has left them with only $47 in the checking. I haven't told Dony yet because I know he will be upset with me; I know I wasn't suppose to go and buy things, but I felt like I had no other choice at the time. Client also stated that she has had a steady migraine from the past three or so months. client stated that it has been going on since September or October and it has gotten so bad that she will wake up with a migraine and will go to bed with a migraine. Client stated that she has upset several people especially Dony because she will try and say one thing but it comes out as something else and then she will get defensive because she feels she is being attacked for what she had said. I think that I say one thing but I end up saying something else and I guess I am not understanding as to why no one is understanding me. client stated that she doesn't know if her medications are off or if it is the blood vessels in/on her brain that are popping causing the outburst and causing her to snap. I am hoping that when I check myself in that they can possibly figure out if my medication is not set right or something. My neurology appointment is not until March 16, but I really need some answers because I really want to know what all is going on with my head. I can't take much more of this. Completes Objectives and Tasks: With Delay Action Plan: client stated that her plan is to check herself into the NPU today in hopes that they can help her with what is going on. I really need a mental vacation from everything right now. CSS Return Plan: CSS return plan is to meet with client in one week to introduce her to her new CSS that will be taking over. Client Response: Client stated I will see you next week and I will call and let you know if I need to change our session from Friday to Friday. Hospital Course Hospital Course She slowly acclimated to the individual, group and milieu therapies provided. Continue her home medication and increased her Paxil to 40 mg p.o. every morning to assist with her depression. She showed modest improvement. She was able to contract for safety prior to discharge. During the hospitalization, patient had routine laboratory studies which were within normal limits except for few outliers. Additionally there was a general medical evaluation which was also within normal limits and revealed no new acute processes. Discharge Summary: At the time of discharge, patient denied psychosis or lethality. Mood and anxiety were well managed. Patient endorsed a plan to avoid all drugs of abuse and follow-up with the aftercare recommendations of the treatment team. Patient was evaluated and deemed to be absent credible lethality, and had achieved the maximum benefit from an inpatient hospitalization, so was discharged. Hospital Course Hospital Course She quickly acclimated to the individual, group and milieu therapies provided. She almost immediately reported that she did not need to be here and it seemed like when she most needs to be here she does not stay and when she does not need to be here they make her stay. She was on a 96-hour hold so we agreed we did need to do are due diligence and observe her and get collateral information especially from her . She was reasonable during her stay and felt after evaluation and consultation with continue her home medication and increased her Paxil to 40 mg p.o. every morning to assist with her depression. She showed modest improvement. She was able to contract for safety prior to discharge. During the hospitalization, patient had routine laboratory studies which were within normal limits except for few outliers. Additionally there was a general medical evaluation which was also within normal limits and revealed no new acute processes. Discharge Summary: At the time of discharge, patient denied psychosis or lethality. Mood and anxiety were well managed. Patient endorsed a plan to avoid all drugs of abuse and follow-up with the aftercare recommendations of the treatment team. Patient was evaluated and deemed to be absent credible lethality, and had achieved the maximum benefit from an inpatient hospitalization, so was discharged. Involuntary Hold Information 96 Hour Hold: 96 Hour Involuntary Admission: Yes 96 Hour Hold Ending Date: 05/03/22 96 Hour Hold Ending Time: 09:50 Mental Status Exam MSE Comments: This is a well-nourished, well-developed white female in hospital scrubs on with limited grooming and eye contact. Poor/absent dentition. No abnormal movements. Cooperative with exam in no acute distress. Speech was normal rate and volume was significant slurring and speech impediment. Mood described as better, affect congruent. Thought process organized. Thought content: Patient denied suicidal or homicidal ideation, there were no delusions reported or noted, she denies any auditory or visual hallucinations this morning. Attention and concentration appear limited and memory was somewhat reliable but none were formally tested. Alert and oriented x3. Insight and judgment appear fair, impulse control appears limited. Discharge Data Studies Completed and Pending: Laboratory Results WBC 10.1 10^3/uL (4.0 -10.0) H 04/26/22 07:05 RBC 4.66 10^6/uL (4.1 -5.3) 04/26/22 07:05 Hgb 14.6 g/dL (11.5-1 5.3) 04/26/22 07:05 Hct 45.4 % (37.0-47.0 ) 04/26/22 07:05 MCV 97.4 fl (81-99) 04/26/22 07:05 MCH 31.3 pg (28.0-34. 0) 04/26/22 07:05 MCHC 32.2 g/dL (30.0-3 6.0) 04/26/22 07:05 RDW 12.6 % (12.1-15.1 ) 04/26/22 07:05 Plt Count 275 10^3/cmm (130 -400) 04/26/22 07:05 MPV 10.7 fL (7.4-10.4 ) H 04/26/22 07:05 Neut % (Auto) 59.1 % 04/26/22 07:05 Lymph % (Auto) 31.3 % 04/26/22 07:05 [place] % (Auto) 5.9 % 04/26/22 07:05 Eos % (Auto) 2.0 % 04/26/22 07:05 Baso % (Auto) 1.5 % 04/26/22 07:05 Neut # (Auto) 5.97 10^3/uL (1.8 -7.7) 04/26/22 07:05 Lymph # (Auto) 3.2 10^3/uL (0.8- 4.8) 04/26/22 07:05 [place] # (Auto) 0.6 10^3/uL (0.2- 0.9) 04/26/22 07:05 Eos # (Auto) 0.2 10^3/uL (0.0- 0.8) 04/26/22 07:05 Baso # (Auto) 0.2 10^3/uL (0.0- 0.1) H 04/26/22 07:05 Nucleated RBC % (a uto) 0 % 04/26/22 07:05 Nucleated RBCs # 0.0 /100WBC 04/26/22 07:05 Sodium 137 mmol/L (136-1 45) 04/26/22 07:05 Potassium 4.2 mmol/L (3.5-5 .1) 04/26/22 07:05 Chloride 104 mmol/L (98-10 7) 04/26/22 07:05 Carbon Dioxide 23 mmol/L (22-29) 04/26/22 07:05 Anion Gap 14.2 (5-19) 04/26/22 07:05 BUN 13 mg/dL (6-20) 04/26/22 07:05 Creatinine 0.6 mg/dL (0.5-0. 9) 04/26/22 07:05 GFR Calculation 103.4 mL/min (90- 130) 04/26/22 07:05 Glucose 129 mg/dL (65-115 ) H 04/26/22 07:05 POC Glucose 94 mg/dL (70-110) 04/28/22 12:40 Calculated Osmolal ity 286 mOsm/kg (285- 295) 04/26/22 07:05 Calcium 9.7 mg/dL (8.5-10 .5) 04/26/22 07:05 Total Bilirubin 0.3 mg/dL (0.15-1 .2) 04/26/22 07:05 AST 15 U/L (0-32) 04/26/22 07:05 ALT 13 U/L (0-33) 04/26/22 07:05 Alkaline Phosphata se 104 U/L (35-105) 04/26/22 07:05 Total Protein 7.5 g/dL (6.6-8.7 ) 04/26/22 07:05 Albumin 4.5 g/dL (3.5-5.2 ) 04/26/22 07:05 Globulin 3.0 g/dL (1.3-4.6 ) 04/26/22 07:05 Urine Color Yellow (Yellow) 04/26/22 06:55 Urine Appearance Clear (CLEAR) 04/26/22 06:55 Urine pH 5 (5-7) 04/26/22 06:55 Ur Specific Gravit y 1.005 (1.005-1.0 30) 04/26/22 06:55 Urine Protein Neg (Negative) 04/26/22 06:55 Urine Glucose (UA) 4+ (Normal) H 04/26/22 06:55 Urine Ketones Negative (Negati ve) 04/26/22 06:55 Urine Blood Neg (Negative) 04/26/22 06:55 Urine Nitrate Negative (Negati ve) 04/26/22 06:55 Urine Bilirubin Neg (Negative) 04/26/22 06:55 Urine Urobilinogen Neg mg/dL (Negati ve) 04/26/22 06:55 Ur Leukocyte Marisa ase Negative (Negati ve) 04/26/22 06:55 Salicylates 0.4 mg/dL (3-10) L 04/26/22 07:05 Urine Opiates Scre en Negative ng/mL (N egative) 04/26/22 06:55 Acetaminophen < 5.0 ug/mL (10-3 0) L 04/26/22 07:05 Ur Barbiturates Sc reen Negative ng/mL (N egative) 04/26/22 06:55 Ur Phencyclidine S crn Negative ng/mL (N egative) 01/13/23 06:55 Ur Amphetamines Sc reen Negative ng/mL (N egative) 04/26/22 06:55 U Benzodiazepines Scrn Negative ng/mL (N egative) 04/26/22 06:55 Chunky 0.1 mmol/L (0.6-1 .2) L 04/26/22 18:32 Urine Cocaine Scre en Negative ng/mL (N egative) 04/26/22 06:55 U Marijuana (THC) Screen Negative ng/mL (N egative) 04/26/22 06:55 Vitals: Last Vital Signs Temp 98 F 04/28/22 15:33 Pulse 76 04/28/22 15:33 Resp 18 04/28/22 15:33 BP 89/54 04/28/22 15:33 Pulse Ox 95 04/28/22 15:33 O2 Del Method 04/28/22 14:00 O2 Flow Rate 2 04/28/22 08:00 Discharge Plan Discharge Patient Disposition: Home Condition: Stable Prescriptions: Continued (DME) blood-glucose meter [True Metrix Glucose Meter] Kit See Rx Instructions .Route Qty: 1 0RF Rx Instructions: As directed (DME) True Metrix Glucose Test Strip Strip See Rx Instructions .Route Qty: 100 3RF Rx Instructions: use 1 daily (DME) lancets [TRUEplus Lancets] 33 gauge misc See Rx Instructions .Route Qty: 100 3RF Rx Instructions: use one daily Jardiance 25 mg tablet 25 mg PO DAILY Qty: 30 5RF propranolol 20 mg tablet 20 mg PO BID Qty: 60 5RF zonisamide 100 mg capsule 100 mg PO BID Qty: 60 5RF Emgality Pen 120 mg/mL pen injector 120 mg SUBCUT ONCE Qty: 1 6RF Emgality Pen 120 mg/mL pen injector 240 mg SUBCUT ONCE Qty: 1 0RF Rx Instructions: Take 2 injections for the first month then 1 injection every month after (DME) oxygen concentrator See Rx Instructions .Route .MEDSUPPLY Qty: 1 0RF Rx Instructions: As directed oxygen concentrator nocturnal 2liters n/c omeprazole 20 mg capsule,delayed release(DR/EC) 20 mg PO BEDTIME No Action aripiprazole 20 mg tablet 20 mg PO BEDTIME Qty: 30 1RF Rx Instructions: Take 1 tablet daily at bedtime benztropine 1 mg tablet 1 mg PO BEDTIME Qty: 30 1RF Rx Instructions: Take 1 tablet daily at bedtime lithium carbonate 300 mg tablet extended release 600 mg PO QPM Qty: 60 1RF Rx Instructions: Take 2 tablets daily every evening trazodone 50 mg tablet 50 mg PO DAILY PRN (Reason: insomnia) Qty: 30 1RF Rx Instructions: Take 1 tablet daily at bedtime, if needed for insomnia sertraline 100 mg tablet 100 mg PO .q am Qty: 30 1RF Rx Instructions: Take 1 tablet by mouth every morning albuterol sulfate [ProAir HFA] 90 mcg/actuation HFA aerosol inhaler 90 mcg INHALATION QID Qty: 8.5 2RF fenofibrate nanocrystallized [Tricor] 145 mg tablet 145 mg PO DAILY Qty: 30 2RF Rx Instructions: stop Crestor tizanidine 2 mg tablet 2 mg PO .at bedtime Qty: 30 2RF sumatriptan succinate 100 mg tablet See Rx Instructions .ROUTE .COMPLEX Qty: 10 1RF Dose Instruction: TAKE ONE TABLET BY MOUTH EVERY 2 HOURS NEEDED FOR MIGRAINE HEADACHE; DO NOT EXCEED 2 DOSES PER 24 HOURS Rx Instructions: TAKE ONE TABLET BY MOUTH EVERY 2 HOURS NEEDED FOR MIGRAINE HEADACHE; DO NOT EXCEED 2 DOSES PER 24 HOURS Discharge Orders: Discharge Order (Routine); Ordered 04/28/22 Ordered By: Jay Pitt Referrals: Lucila Thomas FNP-C [Primary Care Provider] - Discharge Diet: Regular Discharge Activity: Resume usual activity Patient Instructions: Help Prevent Suicide (DC), Opioid Safety, Pain Management Discharge Attestations NPU Time Spent in Discharge Care*: less than 30 min Specific Discharge Activities: Specific discharge activities: educating patient, discussing with protective services case worker/social workers/dc planners, documenting/other paperwork and evaluating patient/reviewing data Status at Discharge: Cognitive status at discharge: cognitively intact, Behavioral status at discharge: cooperative, Coding Level of Care Code Acute [facility] DC note Diagnoses Suicidal ideation R45.851 Chronic migraine without aura, intractable, with status migrainosus G43.711 Itching of ear L29.9 Trauma of ear canal S09.91XA Left shoulder pain M25.512 Seizure R56.9 Demyelinating disease of central nervous system G37.9 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
--- NOTE | 2022-04-28 15:24 | P.NPUDS_ITS ---
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 Poor/absent dentition. No abnormal movements. Cooperative with exam in mild distress about being here. Speech was normal rate and volume was significant slurring and speech impediment. Mood described as better than when she came here, affect congruent. Thought process organized. Thought content: Patient denied suicidal or homicidal ideation, there were no delusions reported or noted, she denies any auditory or visual hallucinations this morning. Attention and concentration appear limited and memory was somewhat reliable but none were formally tested. Alert and oriented x3. Insight and judgment appear fair, impulse control appears limited. Discharge Data Studies Completed and Pending: Laboratory Results WBC 10.1 10^3/uL (4.0 -10.0) H 04/26/22 07:05 RBC 4.66 10^6/uL (4.1 -5.3) 04/26/22 07:05 Hgb 14.6 g/dL (11.5-1 5.3) 04/26/22 07:05 Hct 45.4 % (37.0-47.0 ) 04/26/22 07:05 MCV 97.4 fl (81-99) 04/26/22 07:05 MCH 31.3 pg (28.0-34. 0) 04/26/22 07:05 MCHC 32.2 g/dL (30.0-3 6.0) 04/26/22 07:05 RDW 12.6 % (12.1-15.1 ) 04/26/22 07:05 Plt Count 275 10^3/cmm (130 -400) 04/26/22 07:05 MPV 10.7 fL (7.4-10.4 ) H 04/26/22 07:05 Neut % (Auto) 59.1 % 04/26/22 07:05 Lymph % (Auto) 31.3 % 04/26/22 07:05 [place] % (Auto) 5.9 % 04/26/22 07:05 Eos % (Auto) 2.0 % 04/26/22 07:05 Baso % (Auto) 1.5 % 04/26/22 07:05 Neut # (Auto) 5.97 10^3/uL (1.8 -7.7) 04/26/22 07:05 Lymph # (Auto) 3.2 10^3/uL (0.8- 4.8) 04/26/22 07:05 [place] # (Auto) 0.6 10^3/uL (0.2- 0.9) 04/26/22 07:05 Eos # (Auto) 0.2 10^3/uL (0.0- 0.8) 04/26/22 07:05 Baso # (Auto) 0.2 10^3/uL (0.0- 0.1) H 04/26/22 07:05 Nucleated RBC % (a uto) 0 % 04/26/22 07:05 Nucleated RBCs # 0.0 /100WBC 04/26/22 07:05 Sodium 137 mmol/L (136-1 45) 04/26/22 07:05 Potassium 4.2 mmol/L (3.5-5 .1) 04/26/22 07:05 Chloride 104 mmol/L (98-10 7) 04/26/22 07:05 Carbon Dioxide 23 mmol/L (22-29) 04/26/22 07:05 Anion Gap 14.2 (5-19) 04/26/22 07:05 BUN 13 mg/dL (6-20) 04/26/22 07:05 Creatinine 0.6 mg/dL (0.5-0. 9) 04/26/22 07:05 GFR Calculation 103.4 mL/min (90- 130) 04/26/22 07:05 Glucose 129 mg/dL (65-115 ) H 04/26/22 07:05 POC Glucose 94 mg/dL (70-110) 04/28/22 12:40 Calculated Osmolal ity 286 mOsm/kg (285- 295) 04/26/22 07:05 Calcium 9.7 mg/dL (8.5-10 .5) 04/26/22 07:05 Total Bilirubin 0.3 mg/dL (0.15-1 .2) 04/26/22 07:05 AST 15 U/L (0-32) 04/26/22 07:05 ALT 13 U/L (0-33) 04/26/22 07:05 Alkaline Phosphata se 104 U/L (35-105) 04/26/22 07:05 Total Protein 7.5 g/dL (6.6-8.7 ) 04/26/22 07:05 Albumin 4.5 g/dL (3.5-5.2 ) 04/26/22 07:05 Globulin 3.0 g/dL (1.3-4.6 ) 04/26/22 07:05 Urine Color Yellow (Yellow) 04/26/22 06:55 Urine Appearance Clear (CLEAR) 04/26/22 06:55 Urine pH 5 (5-7) 04/26/22 06:55 Ur Specific [place]it y 1.005 (1.005-1.0 30) 04/26/22 06:55 Urine Protein Neg (Negative) 04/26/22 06:55 Urine Glucose (UA) 4+ (Normal) H 04/26/22 06:55 Urine Ketones Negative (Negati ve) 04/26/22 06:55 Urine Blood Neg (Negative) 04/26/22 06:55 Urine Nitrate Negative (Negati ve) 04/26/22 06:55 Urine Bilirubin Neg (Negative) 04/26/22 06:55 Urine Urobilinogen Neg mg/dL (Negati ve) 04/26/22 06:55 Ur Leukocyte Marisa ase Negative (Negati ve) 04/26/22 06:55 Salicylates 0.4 mg/dL (3-10) L 04/26/22 07:05 Urine Opiates Scre en Negative ng/mL (N egative) 04/26/22 06:55 Acetaminophen < 5.0 ug/mL (10-3 0) L 04/26/22 07:05 Ur Barbiturates Sc reen Negative ng/mL (N egative) 04/26/22 06:55 Ur Phencyclidine S crn Negative ng/mL (N egative) 04/26/22 06:55 Ur Amphetamines Sc reen Negative ng/mL (N egative) 04/26/22 06:55 U Benzodiazepines Scrn Negative ng/mL (N egative) 04/26/22 06:55 Anton 0.1 mmol/L (0.6-1 .2) L 04/26/22 18:32 Urine Cocaine Scre en Negative ng/mL (N egative) 04/26/22 06:55 U Marijuana (THC) Screen Negative ng/mL (N egative) 04/26/22 06:55 Vitals: Last Vital Signs Temp 98 F 04/28/22 14:00 Pulse 76 04/28/22 14:00 Resp 18 04/28/22 14:00 BP 89/54 04/28/22 14:00 Pulse Ox 95 04/28/22 14:00 O2 Del Method 04/28/22 14:00 O2 Flow Rate 2 04/28/22 08:00 Discharge Plan Discharge Patient Disposition: Home Condition: Stable Prescriptions: Continued (DME) blood-glucose meter [True Metrix Glucose Meter] Kit See Rx Instructions .Route Qty: 1 0RF Rx Instructions: As directed (DME) True Metrix Glucose Test Strip Strip See Rx Instructions .Route Qty: 100 3RF Rx Instructions: use 1 daily (DME) lancets [TRUEplus Lancets] 33 gauge misc See Rx Instructions .Route Qty: 100 3RF Rx Instructions: use one daily Jardiance 25 mg tablet 25 mg PO DAILY Qty: 30 5RF propranolol 20 mg tablet 20 mg PO BID Qty: 60 5RF zonisamide 100 mg capsule 100 mg PO BID Qty: 60 5RF Emgality Pen 120 mg/mL pen injector 120 mg SUBCUT ONCE Qty: 1 6RF Emgality Pen 120 mg/mL pen injector 240 mg SUBCUT ONCE Qty: 1 0RF Rx Instructions: Take 2 injections for the first month then 1 injection every month after (DME) oxygen concentrator See Rx Instructions .Route .MEDSUPPLY Qty: 1 0RF Rx Instructions: As directed oxygen concentrator nocturnal 2liters n/c sumatriptan succinate [Imitrex] 100 mg tablet 100 mg PO Q2H PRN (Reason: migraine headache) Qty: 10 1RF Rx Instructions: do not exceed 2 doses per 24 hrs fenofibrate nanocrystallized [Tricor] 145 mg tablet 145 mg PO DAILY Qty: 30 2RF albuterol sulfate [ProAir HFA] 90 mcg/actuation HFA aerosol inhaler 90 mcg INHALATION QID Qty: 8.5 0RF benztropine 1 mg tablet 1 mg PO BEDTIME aripiprazole 20 mg tablet 20 mg PO BEDTIME tizanidine 4 mg tablet 4 mg PO BID PRN (Reason: Muscle Spasticity) sertraline 100 mg tablet 100 mg PO QPM Rx Instructions: stop paroxetine lithium carbonate 300 mg tablet extended release 600 mg PO QPM trazodone 100 mg tablet 50 mg PO BEDTIME PRN (Reason: sleep) omeprazole 20 mg capsule,delayed release(DR/EC) 20 mg PO BEDTIME Crestor 5 mg tablet 5 mg PO BEDTIME Discharge Orders: Discharge Order (Routine); Ordered 04/28/22 Ordered By: Jay Pitt Referrals: Lucila Thomas, KANDIS [Primary Care Provider] - Discharge Diet: Regular Discharge Activity: Resume usual activity Patient Instructions: Opioid Safety, Pain Management Discharge Attestations NPU Time Spent in Discharge Care*: less than 30 min Specific Discharge Activities: Specific discharge activities: educating patient, discussing with disease case manager rn/social workers/dc planners, documenting/other paperwork and evaluating patient/reviewing data Status at Discharge: Cognitive status at discharge: cognitively intact , Behavioral status at discharge: cooperative , Coding Level of Care Code Acute [facility] DC note Diagnoses Suicidal ideation R45.851 Chronic migraine without aura, intractable, with status migrainosus G43.711 Itching of ear L29.9 Trauma of ear canal S09.91XA Left shoulder pain M25.512 Seizure R56.9 Demyelinating disease of central nervous system G37.9 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
[2022-04-28 15:33] VITALS: BP 89/54; PULSE 76; RESP 18; TEMP 36.6; O2SAT 95
--- NOTE | 2022-04-29 09:20 | PC.OT ---
OT EVALUATION ORDERS RECEIVED. PATIENT DISCHARGED BEFORE EVALUATION COULD BE COMPLETED.
== END 2022-04-28 16:01 | disposition home or self-care (01) | DRG 885 ==
LOC: ER 09:33 → NP 14:40
PROVIDERS: Admitting Provider Psychiatry & Neurology Psychiatry; Emergency Provider Family Medicine; PCP Nurse Practitioner; Visit Provider Psychiatry & Neurology Psychiatry
DX: F25.1 Schizoaffective disorder, depressive type (principal); R45.851 Suicidal ideations; E11.9 Type 2 diabetes mellitus without complications; I10 Essential (primary) hypertension; F12.20 Cannabis dependence, uncomplicated; F17.210 Nicotine dependence, cigarettes, uncomplicated; Z98.1 Arthrodesis status; F03.90 Unspecified dementia, unspecified severity, without behavioral disturbance, psychotic disturbance, mood disturbance, and anxiety; Z79.84 Long term (current) use of oral hypoglycemic drugs
CPT/HCPCS: 36415; 36416; 80053; 80178; 80306; 80307; 81003; 82962; 85025; 94640; 94664; 96372; 99285; J1815; J7613

== ENCOUNTER → 2022-05-06 09:31 | Outpatient (BNVA) | payer MEDICARE, MEDICAID, SELFPAY ==
[2022-03-20 13:20] VITALS: BP 125/70; BMI 32.3
== END ==
PROVIDERS: PCP Nurse Practitioner; Visit Provider Nurse Practitioner
DX: E11.69 Type 2 diabetes mellitus with other specified complication (principal); K86.9 Disease of pancreas, unspecified
CPT/HCPCS: 81000

== ENCOUNTER 2022-05-13 16:32 | Emergency (ER) | payer MEDICARE, MEDICAID, SELFPAY ==
[2022-03-20 13:20] VITALS: BP 125/70; BMI 32.3
[2022-05-13 16:34] VITALS: BP 149/76; PULSE 78; RESP 16; TEMP 36.4; O2SAT 98
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
--- NOTE | 2022-05-13 16:50 | CTR_ITS ---
PROCEDURE INFORMATION: Exam: CT Abdomen And Pelvis With Contrast Exam date and time: 05/13/2022 5:57 PM Age: 56 years old Clinical indication: Vomiting; Prior surgery; Surgery date: 6+ months; Surgery type: Hyst, HX of av fistula in brain; Additional info: Rlq pain TECHNIQUE: Imaging protocol: Computed tomography of the abdomen and pelvis with contrast. Radiation optimization: All CT scans at this facility use at least one of these dose optimization techniques: automated exposure control; mA and/or kV adjustment per patient size (includes targeted exams where dose is matched to clinical indication); or iterative reconstruction. Contrast material: OMNIPAQUE 350; Contrast volume: 95 ml; Contrast route: INTRAVENOUS (IV); Other protocol: This patient has received 11 known CTs and 0 known cardiac nuclear medicine studies in the 12 months prior to the current study. COMPARISON: CT pelvis wo con [id number] 09/05/2021 6:58 PM RADIATION DOSE METRICS: Total DLP (mGy-cm): 576.03 FINDINGS: Liver: Normal. No mass. Gallbladder and bile ducts: Normal. No calcified stones. No ductal dilation. Pancreas: Normal. No ductal dilation. Spleen: Normal. No splenomegaly. Adrenal glands: Normal. No mass. Kidneys and ureters: Punctate nonobstructing stone in the right kidney. No hydronephrosis. Stomach and bowel: Unremarkable. No obstruction. No mucosal thickening. Appendix: Appendectomy. Intraperitoneal space: Unremarkable. No free air. No significant fluid collection. Vasculature: Unremarkable. No abdominal aortic aneurysm. Lymph nodes: Unremarkable. No enlarged lymph nodes. Urinary bladder: Unremarkable as visualized. Reproductive: Hysterectomy. Bones/joints: No acute fracture. Soft tissues: Unremarkable. CT/CT abdomen pelvis w con* [id number] IMPRESSION: 1. No acute findings. 2. Punctate nonobstructing stone in the right kidney.
[2022-05-13 16:54] VITALS: BP 149/76; PULSE 88; RESP 16; O2SAT 96
[2022-05-13 16:57] VITALS: RESP 18; O2SAT 96
[2022-05-13] MEDS: fentaNYL 50 mcg/mL INJ 2mL IVP (16:57)
[2022-05-13 17:16] LABS: Basophils # 0.1 10^3/uL (0.0-0.1); Basophils % 1.3 %; Eosinophils # 0.2 10^3/uL (0.0-0.8); Eosinophils % 1.7 %; Hematocrit 42.6 % (37.0-47.0); Hemoglobin 13.7 g/dL (11.5-15.3); Lymphocytes # 3.4 10^3/uL (0.8-4.8); Lymphocytes % 36.8 %; Mean Corpuscular HGB Conc 32.2 g/dL (30.0-36.0); Mean Corpuscular Hemoglobin 31.4 pg (28.0-34.0); Mean Corpuscular Volume 97.7 fl (81-99); Mean Platelet Volume 10.7 fL (7.4-10.4); Monocytes # 0.6 10^3/uL (0.2-0.9); Monocytes % 6.9 %; Neutrophils # 4.88 10^3/uL (1.8-7.7); Neutrophils % 53.1 %; Nucleated Red Blood Cells % 0 %; Platelet Count 323 10^3/cmm (130-400); Red Blood Count 4.36 10^6/uL (4.1-5.3); Red Cell Distribution Width 13.2 % (12.1-15.1); White Blood Count 9.2 10^3/uL (4.0-10.0)
[2022-05-13 17:36] LABS: Alanine Aminotransferase 13 U/L (0-33); Albumin Level 4.4 g/dL (3.5-5.2); Alkaline Phosphatase 109 U/L (35-105); Anion Gap 10.9 (5-19); Aspartate Amino Transferase 15 U/L (0-32); Blood Urea Nitrogen 9 mg/dL (6-20); Calcium 9.4 mg/dL (8.5-10.5); Carbon Dioxide 25 mmol/L (22-29); Chloride 109 mmol/L (98-107); Globulin 2.7 g/dL (1.3-4.6); Glomerular Filtration Rate 103.4 mL/min (90-130); Glucose 133 mg/dL (65-115); Lipase 41 U/L (13-60); Osmolality Calculated 293 mOsm/kg (285-295); Potassium 3.9 mmol/L (3.5-5.1); Sodium 141 mmol/L (136-145); Total Bilirubin 0.2 mg/dL (0.15-1.2); Total Protein 7.1 g/dL (6.6-8.7)
[2022-05-13 17:55] LABS: Add Urine Culture? No; Add Urine Microscopic? YES; Bacteria Urine 1+ /hpf; Bilirubin Urine Neg (Negative); Blood Urine Trace (Negative); Glucose Urine UA 2+ (Normal); Ketones Urine 1+ (Negative); Leukocyte Esterase Urine Trace (Negative); Mucus Urine 1+ /hpf; Nitrate Urine Negative (Negative); Protein Urine Neg (Negative); RBC Urine 0-4 /hpf (0-2); Urine Appearance Clear (CLEAR); Urine Color Yellow (Yellow); Urobilinogen Urine 1 mg/dL (Negative); pH Urine 6 (5-7)
--- NOTE | 2022-05-13 18:12 | PC.NURSE ---
called to CT for possible seizure. reports pt bent forward and told them she thought she was going to have a seizure. they laid pt back on scanner and dimmed the lights. electric meter technician reports pt went out briefly. RN and ED physician to CT. on RN arrival, pt eyes were closed but opened when spoken to. pt immediately oriented to person, place, and time. pt speech clear, answering questions appropriately. pt brought back to pt room, seizure pads placed on pt bed railings. pt requests to roll over because she normally gets tired after seizures. pt able to self adjust for comfort. spoke to Dr. Romo, verbal order to discontinue IVP Ativan.
[2022-05-13] MEDS: iohexol 350 mg/mL 500 mL Btl (per mL) IV (18:13)
--- NOTE | 2022-05-13 18:53 | PC.NURSE ---
report given to LUBA Hdz to assume care
[2022-05-13 18:59] LABS: Lactate (Lactic Acid level) 0.7 mmol/L (0.5-2.2)
[2022-05-13] MEDS: dicyclomine 10 mg Capsule PO (19:10)
[2022-05-13] MEDS: acetaminophen 500 mg Tablet 1000 MG PO (19:10)
[2022-05-13] MEDS: nitrofurantoin SR (BID) 100 mg Capsule PO (19:12)
[2022-05-13 19:16] VITALS: BP 119/75; PULSE 73; RESP 15; O2SAT 96
--- NOTE | 2022-05-13 19:29 | PC.NURSE ---
Pt unable to get to pick her up secondary to weather conditions. Carlyle contacted for pt at MD's approval. Pt agreeable. Pt dressed herself, IV dc'd. Pt ambulated into espinoza to wheelchair without difficulty. Pt in NAD. Vitals Stable.
== END 2022-05-13 19:41 | disposition home or self-care (01) ==
PROVIDERS: Emergency Provider Emergency Medicine; PCP Nurse Practitioner
DX: N39.0 Urinary tract infection, site not specified (principal); R56.9 Unspecified convulsions; F17.210 Nicotine dependence, cigarettes, uncomplicated; J44.9 Chronic obstructive pulmonary disease, unspecified; E11.9 Type 2 diabetes mellitus without complications
CPT/HCPCS: 74177; 80053; 81001; 83605; 83690; 85025; 96374; 99285; J3010; Q9967

== ENCOUNTER → 2022-05-28 11:34 | Outpatient (BNVA) | payer MEDICARE, MEDICAID, SELFPAY ==
[2022-03-20 13:20] VITALS: BP 125/70; BMI 32.3
== END ==
PROVIDERS: PCP Nurse Practitioner; Visit Provider Nurse Practitioner Family
DX: R51.9 Headache, unspecified (principal); J44.1 Chronic obstructive pulmonary disease with (acute) exacerbation
CPT/HCPCS: 87426

== ENCOUNTER 2022-06-09 17:02 | Emergency (ER) | payer MEDICARE, MEDICAID, SELFPAY ==
[2022-05-31 15:39] VITALS: BP 160/80; BMI 28.8
[2022-06-09 17:17] VITALS: BP 136/62; PULSE 72; RESP 18; TEMP 36.8; O2SAT 93
--- NOTE | 2022-06-09 17:45 | CTR_ITS ---
PROCEDURE INFORMATION: Exam: CT Head Without Contrast Exam date and time: 06/09/2022 5:54 PM Age: 57 years old Clinical indication: Speech disturbance; Dysphasia; Additional info: Speech problems-dysphasia TECHNIQUE: Imaging protocol: Computed tomography of the head without contrast. Radiation optimization: All CT scans at this facility use at least one of these dose optimization techniques: automated exposure control; mA and/or kV adjustment per patient size (includes targeted exams where dose is matched to clinical indication); or iterative reconstruction. REPORTING DATA: Count of CT and Cardiac NM exams in prior 12 months: This patient has received 12 known CTs and 0 known cardiac nuclear medicine studies in the 12 months prior to the current study. COMPARISON: CT head wo con* [id number] 04/12/2022 4:24 AM RADIATION DOSE METRICS: Total DLP (mGy-cm): 954.99 FINDINGS: Brain: Normal. No hemorrhage. Unremarkable white matter. No mass effect. Cerebral ventricles: No ventriculomegaly. Paranasal sinuses: Visualized sinuses are unremarkable. No fluid levels. Mastoid air cells: Visualized mastoid air cells are well aerated. Bones/joints: Unremarkable. No acute fracture. Soft tissues: Unremarkable. CT/CT head wo con* [id number] IMPRESSION: No acute intracranial abnormality.
--- NOTE | 2022-06-09 17:47 | W.ED.PSYCHS ---
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 discharge instructions. Thank you for choosing [facility] for your healthcare needs today. Please realize this is an emergency room and that we are providing you with a medical screening exam and this may not be complete and all inclusive of all the testing and or work up that you may need to determine your ailment or severity of your illness. It is very important that you follow up as instructed or that you return to the Emergency Department should you have concerns or if your condition changes or worsens in any way. Coding Level of Care Code ED [employer] for Lenny Winn
[2022-06-09 18:56] LABS: Basophils # 0.1 10^3/uL (0.0-0.1); Basophils % 0.9 %; Eosinophils # 0.2 10^3/uL (0.0-0.8); Eosinophils % 1.7 %; Hematocrit 42.6 % (37.0-47.0); Hemoglobin 13.7 g/dL (11.5-15.3); Lymphocytes # 4.2 10^3/uL (0.8-4.8); Mean Corpuscular HGB Conc 32.2 g/dL (30.0-36.0); Mean Corpuscular Hemoglobin 30.8 pg (28.0-34.0); Mean Corpuscular Volume 95.7 fl (81-99); Mean Platelet Volume 10.3 fL (7.4-10.4); Monocytes # 0.6 10^3/uL (0.2-0.9); Monocytes % 5.9 %; Neutrophils # 4.94 10^3/uL (1.8-7.7); Neutrophils % 49.2 %; Nucleated Red Blood Cells % 0 %; Platelet Count 295 10^3/cmm (130-400); Red Blood Count 4.45 10^6/uL (4.1-5.3); Red Cell Distribution Width 12.8 % (12.1-15.1)
[2022-06-09 19:15] LABS: Anion Gap 14.9 (5-19); Blood Urea Nitrogen 17 mg/dL (6-20); Calcium 10.8 mg/dL (8.5-10.5); Carbon Dioxide 25 mmol/L (22-29); Chloride 104 mmol/L (98-107); Glomerular Filtration Rate 86.2 mL/min (90-130); Glucose 128 mg/dL (65-115); Osmolality Calculated 293 mOsm/kg (285-295); Potassium 3.9 mmol/L (3.5-5.1); Sodium 140 mmol/L (136-145)
[2022-06-09] MEDS: LORazepam 1 mg Tablet PO (19:21)
--- NOTE | 2022-06-09 19:33 | XRR_ITS ---
PROCEDURE INFORMATION: Exam: XR Left Shoulder Exam date and time: 06/09/2022 7:41 PM Age: 57 years old Clinical indication: Injury or trauma; Fall; Blunt trauma (contusions or hematomas); Shoulder; Left; Additional info: Shoulder pain after fall TECHNIQUE: Imaging protocol: Radiologic exam of the left shoulder. Views: 2 or more views. COMPARISON: CR XR chest 1V portable [id number] 08/17/2021 3:51 PM FINDINGS: Bones/joints: Mild to moderate acromioclavicular joint osteoarthritis. Soft tissues: Normal. XR/XR shoulder LT min 2V* [id number] IMPRESSION: 1. Negative for fracture or dislocation. 2. Mild to moderate acromioclavicular joint osteoarthritis.
== END 2022-06-09 20:58 | disposition home or self-care (01) ==
PROVIDERS: Emergency Provider Physician Assistant; PCP Nurse Practitioner
DX: F41.9 Anxiety disorder, unspecified (principal); Z73.3 Stress, not elsewhere classified; M25.512 Pain in left shoulder; F17.210 Nicotine dependence, cigarettes, uncomplicated; J44.9 Chronic obstructive pulmonary disease, unspecified; E11.9 Type 2 diabetes mellitus without complications
CPT/HCPCS: 36415; 70450; 73030; 80048; 85025; 99285

== ENCOUNTER → 2022-06-24 14:18 | Outpatient (BNVA) | payer MEDICARE, MEDICAID, SELFPAY ==
[2022-06-20 14:57] VITALS: BP 160/80; BMI 28.8
== END ==
PROVIDERS: PCP Nurse Practitioner; Visit Provider Nurse Practitioner
DX: E11.69 Type 2 diabetes mellitus with other specified complication (principal); K86.9 Disease of pancreas, unspecified
CPT/HCPCS: 81000; 83036

== ENCOUNTER 2022-06-25 12:54 | Outpatient (CLI) | payer MEDICARE, MEDICAID, SELFPAY ==
[2022-06-20 14:57] VITALS: BP 160/80; BMI 28.8
--- NOTE | 2022-06-25 13:05 | MR_ITS ---
WS: [id number] MRI HEAD WITHOUT CONTRAST TECHNIQUE: Sagittal T1, T2 axial, T2 axial FLAIR, axial and coronal T1 images, axial susceptibility w eighted imaging, axial diffusion weighted images, and coronal T2 images were obtained. CLINICAL INFORMATION: G43.711 - Chronic migraine without aura, intractable, wit... COMPARISON: CT June 09, 2022 and MRI October 30, 2020 FINDINGS: Some images degraded by patient motion No evidence of restricted diffusion to suggest acute ischemia. Ventricular system and basal cisterns are patent. Moderate small vessel changes. Mild parenchymal volume loss. Normal posterior fossa. Norm al vascular flow voids at the skull base. No extra axial fluid collections. No evidence of mass or ma ss effect. Paranasal sinuses and mastoid air cells are well aerated. Normal posterior nasopharynx. Postoperative changes in the cervical spine partially visualized. A few small foci of hemosiderin in the supratentorial white matter unchanged. Normal optic chiasm and pituitary infundibulum. Temporal l obes and hippocampal formations are normal in appearance. Normal cavernous sinuses and Meckel's cave. MR/MR head wo con* [id number] IMPRESSION: 1. No evidence of restricted diffusion to suggest acute ischemia. 2. Moderate small vessel changes with mild parenchymal volume loss. Small ves melonie changes appear slightly progressed compared to 2020. 3. A few foci of hemosiderin in the supratentorial white matter unchanged. 4. No other acute findings or change from previous.
== END 2022-06-25 12:55 | disposition home or self-care (01) ==
PROVIDERS: PCP Nurse Practitioner; Visit Provider Specialist
DX: G43.711 Chronic migraine without aura, intractable, with status migrainosus (principal); R56.9 Unspecified convulsions
CPT/HCPCS: 70551

== ENCOUNTER 2022-08-13 16:03 | Emergency (ER) | payer MEDICARE, MEDICAID, SELFPAY ==
[2022-06-20 14:57] VITALS: BP 160/80; BMI 28.8
[2022-08-13 16:08] VITALS: BP 128/78; PULSE 87; RESP 16; TEMP 37.1; O2SAT 97; BMI 27.5
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
--- NOTE | 2022-08-13 16:19 | CTR_ITS ---
PROCEDURE INFORMATION: Exam: CT Head Without Contrast Exam date and time: 08/13/2022 4:30 PM Age: 57 years old Clinical indication: Injury or trauma; Fall; Blunt trauma (contusions or hematomas); Additional info: Fall, +loc TECHNIQUE: Imaging protocol: Computed tomography of the head without contrast. Radiation optimization: All CT scans at this facility use at least one of these dose optimization techniques: automated exposure control; mA and/or kV adjustment per patient size (includes targeted exams where dose is matched to clinical indication); or iterative reconstruction. REPORTING DATA: Count of CT and Cardiac NM exams in prior 12 months: This patient has received 11 known CTs and 0 known cardiac nuclear medicine studies in the 12 months prior to the current study. COMPARISON: MR head wo con* [id number] 06/25/2022 1:20 PM RADIATION DOSE METRICS: Total DLP (mGy-cm): 943.24 FINDINGS: Brain: No hemorrhage. No edema. Mild diffuse cerebral atrophy and sequela of chronic small vessel ischemic disease. No mass effect. Cerebral ventricles: No ventriculomegaly. Paranasal sinuses: Visualized sinuses are unremarkable. No fluid levels. Mastoid air cells: Visualized mastoid air cells are well aerated. Bones/joints: Unremarkable. No acute fracture. Soft tissues: Unremarkable. CT/CT head wo con* [id number] IMPRESSION: No acute intracranial abnormality.
--- NOTE | 2022-08-13 16:19 | XRR_ITS ---
PROCEDURE INFORMATION: Exam: XR Thoracic Spine Exam date and time: 08/13/2022 4:37 PM Age: 57 years old Clinical indication: Injury or trauma; Fall; Blunt trauma (contusions or hematomas) TECHNIQUE: Imaging protocol: Radiologic exam of the thoracic spine. Views: 3 views. COMPARISON: CT abdomen pelvis w con* [id number] 05/13/2022 5:57 PM FINDINGS: Bones/joints: No acute fracture. Normal alignment. Soft tissues: Unremarkable. XR/XR thoracic spine 3V* [id number] IMPRESSION: No acute findings.
--- NOTE | 2022-08-13 16:19 | XRR_ITS ---
PROCEDURE INFORMATION: Exam: XR Right Wrist Exam date and time: 08/13/2022 4:48 PM Age: 57 years old Clinical indication: Injury or trauma; Fall; Other: Pain TECHNIQUE: Imaging protocol: Radiologic exam of the right wrist. Views: 3 or more views. COMPARISON: CR (UP EXM, ) 08/13/2022 4:46 PM FINDINGS: Bones/joints: Osseous structures are intact. Negative for fracture. Joint spaces are preserved. Well corticated ossification adjacent of the ulnar styloid process likely relates to old trauma. Soft tissues: Normal. XR/XR wrist RT min 3V* [id number] IMPRESSION: No acute findings.
--- NOTE | 2022-08-13 16:19 | XRR_ITS ---
PROCEDURE INFORMATION: Exam: XR Right Hand Exam date and time: 08/13/2022 4:46 PM Age: 57 years old Clinical indication: Injury or trauma; Fall; Blunt trauma (contusions or hematomas); Hand; Right TECHNIQUE: Imaging protocol: Radiologic exam of the right hand. Views: 3 or more views. COMPARISON: No relevant prior studies available. FINDINGS: Bones/joints: Osseous structures are intact. Negative for fracture. Joint spaces are preserved. Soft tissues: Normal. XR/XR hand RT min 3V* [id number] IMPRESSION: No acute findings.
--- NOTE | 2022-08-13 16:19 | XRR_ITS ---
PROCEDURE INFORMATION: Exam: XR Lumbosacral Spine Exam date and time: 08/13/2022 4:43 PM Age: 57 years old Clinical indication: Injury or trauma; Fall; Blunt trauma (contusions or hematomas) TECHNIQUE: Imaging protocol: Radiologic exam of the lumbosacral spine. Views: 2 or 3 views. COMPARISON: MR lumbar spine wo con* [id number] 09/14/2019 10:55 PM FINDINGS: Bones/joints: No acute fracture. Normal alignment. Soft tissues: Unremarkable. XR/XR lumbar spine 2-3V* [id number] IMPRESSION: No acute findings.
== END 2022-08-13 17:19 | disposition home or self-care (01) ==
PROVIDERS: Emergency Provider Physician Assistant; PCP Nurse Practitioner
DX: S63.501A Unspecified sprain of right wrist, initial encounter (principal); M54.9 Dorsalgia, unspecified; S09.8XXA Other specified injuries of head, initial encounter; F17.210 Nicotine dependence, cigarettes, uncomplicated; F17.290 Nicotine dependence, other tobacco product, uncomplicated; J44.9 Chronic obstructive pulmonary disease, unspecified; E11.9 Type 2 diabetes mellitus without complications; W01.0XXA Fall on same level from slipping, tripping and stumbling without subsequent striking against object, initial encounter
CPT/HCPCS: 70450; 72072; 72100; 73110; 73130; 99284

== ENCOUNTER → 2022-09-05 11:53 | Outpatient (BNVA) | payer MEDICARE, MEDICAID, SELFPAY ==
[2022-06-20 14:57] VITALS: BP 160/80; BMI 28.8
== END ==
PROVIDERS: PCP Nurse Practitioner; Visit Provider Nurse Practitioner
DX: F25.1 Schizoaffective disorder, depressive type (principal); E11.69 Type 2 diabetes mellitus with other specified complication; K86.9 Disease of pancreas, unspecified
CPT/HCPCS: 80053; 80061; 80178; 81000; 83036; 85025

== ENCOUNTER → 2022-10-21 15:11 | Outpatient (BNVA) | payer MEDICARE, MEDICAID, SELFPAY ==
[2022-06-20 14:57] VITALS: BP 160/80; BMI 28.8
== END ==
PROVIDERS: PCP Nurse Practitioner; Visit Provider Nurse Practitioner
DX: E11.69 Type 2 diabetes mellitus with other specified complication (principal); E55.9 Vitamin D deficiency, unspecified; K86.9 Disease of pancreas, unspecified
CPT/HCPCS: 80053; 80061; 81000; 82043; 83036

== ENCOUNTER 2022-10-24 17:47 | Emergency (ER) | payer MEDICARE, MEDICAID, SELFPAY ==
[2022-06-20 14:57] VITALS: BP 160/80; BMI 28.8
[2022-10-24 17:51] VITALS: BP 128/77; PULSE 92; RESP 16; O2SAT 92; BMI 29.2
[2022-10-24 18:26] LABS: Basophils # 0.1 10^3/uL (0.0-0.1); Basophils % 1.1 %; Eosinophils # 0.3 10^3/uL (0.0-0.8); Hematocrit 40.8 % (37.0-47.0); Hemoglobin 12.7 g/dL (11.5-15.3); Lymphocytes # 3.2 10^3/uL (0.8-4.8); Lymphocytes % 36.7 %; Mean Corpuscular HGB Conc 31.1 g/dL (30.0-36.0); Mean Corpuscular Hemoglobin 29.6 pg (28.0-34.0); Mean Corpuscular Volume 95.1 fl (81-99); Mean Platelet Volume 10.4 fL (7.4-10.4); Monocytes # 0.7 10^3/uL (0.2-0.9); Monocytes % 8.2 %; Neutrophils # 4.43 10^3/uL (1.8-7.7); Neutrophils % 50.7 %; Nucleated Red Blood Cells % 0 %; Platelet Count 322 10^3/cmm (130-400); Red Blood Count 4.29 10^6/uL (4.1-5.3); Red Cell Distribution Width 13.3 % (12.1-15.1); White Blood Count 8.8 10^3/uL (4.0-10.0)
[2022-10-24] MEDS: diphenhydrAMINE 50 mg/mL SDV 1mL IVP (18:26)
[2022-10-24] MEDS: metoclopramide 5 mg/mL SDV 2 mL 10 MG IVP (18:26)
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
--- NOTE | 2022-10-24 18:32 | CTR_ITS ---
PROCEDURE INFORMATION: Exam: CT Head Without Contrast Exam date and time: 10/24/2022 7:04 PM Age: 57 years old Clinical indication: Pain; Headache; Additional info: FORREST TECHNIQUE: Imaging protocol: Computed tomography of the head without contrast. Radiation optimization: All CT scans at this facility use at least one of these dose optimization techniques: automated exposure control; mA and/or kV adjustment per patient size (includes targeted exams where dose is matched to clinical indication); or iterative reconstruction. REPORTING DATA: Count of CT and Cardiac NM exams in prior 12 months: This patient has received 7 known CTs and 0 known cardiac nuclear medicine studies in the 12 months prior to the current study. COMPARISON: CT head wo con* [id number] 08/13/2022 4:30 PM RADIATION DOSE METRICS: Total DLP (mGy-cm): 995.89 FINDINGS: Brain: No acute infarct. No hemorrhage. Unremarkable white matter for age. No mass effect. Cerebral ventricles: No ventriculomegaly. Paranasal sinuses: No significant inflammation. No fluid levels. Mastoid air cells: Visualized mastoid air cells are well aerated. Bones/joints: Unremarkable. No acute fracture. Soft tissues: Unremarkable. CT/CT head wo con* [id number] IMPRESSION: No acute intracranial abnormality.
[2022-10-24 18:42] VITALS: RESP 16
[2022-10-24] MEDS: HYDROmorphone 1 mg/mL INJ 1 mL 0.5 MG IVP (18:42)
[2022-10-24 18:53] LABS: Alanine Aminotransferase 11 U/L (0-33); Albumin Level 3.8 g/dL (3.5-5.2); Alkaline Phosphatase 85 U/L (35-105); Anion Gap 12.7 (5-19); Aspartate Amino Transferase 13 U/L (0-32); Blood Urea Nitrogen 20 mg/dL (6-20); Carbon Dioxide 23 mmol/L (22-29); Chloride 107 mmol/L (98-107); Globulin 2.4 g/dL (1.3-4.6); Glomerular Filtration Rate 73.9 mL/min (90-130); Glucose 106 mg/dL (65-115); Osmolality Calculated 291 mOsm/kg (285-295); Potassium 3.7 mmol/L (3.5-5.1); Sodium 139 mmol/L (136-145); Total Bilirubin 0.2 mg/dL (0.15-1.2); Total Protein 6.2 g/dL (6.6-8.7)
[2022-10-24 19:32] VITALS: BP 129/57; TEMP 36.5
[2022-10-24 19:40] VITALS: PULSE 94; RESP 16; O2SAT 96
== END 2022-10-24 19:41 | disposition home or self-care (01) ==
PROVIDERS: Emergency Provider Emergency Medicine; PCP Nurse Practitioner
DX: R51.9 Headache, unspecified (principal)
CPT/HCPCS: 36415; 70450; 80053; 85025; 96374; 96375; 99284; J1170; J1200; J2765

== ENCOUNTER → 2022-12-05 14:27 | Outpatient (BNVA) | payer MEDICARE, MEDICAID, SELFPAY ==
[2022-06-20 14:57] VITALS: BP 160/80; BMI 28.8
== END ==
PROVIDERS: PCP Nurse Practitioner; Visit Provider Nurse Practitioner
DX: E11.69 Type 2 diabetes mellitus with other specified complication (principal); K86.9 Disease of pancreas, unspecified
CPT/HCPCS: 80053; 81000

== ENCOUNTER → 2022-12-24 08:12 | Outpatient (BNVA) | payer MEDICAID, SELFPAY ==
[2022-06-20 14:57] VITALS: BP 160/80; BMI 28.8
== END ==
PROVIDERS: PCP Nurse Practitioner; Referring Provider Specialist; Visit Provider Specialist
DX: R29.90 Unspecified symptoms and signs involving the nervous system (principal); G37.9 Demyelinating disease of central nervous system, unspecified; F17.210 Nicotine dependence, cigarettes, uncomplicated; F25.1 Schizoaffective disorder, depressive type; J44.9 Chronic obstructive pulmonary disease, unspecified
CPT/HCPCS: 99213; 99214

== ENCOUNTER 2023-01-03 15:07 | Emergency (ER) | payer MEDICARE, MEDICAID, SELFPAY ==
[2022-06-20 14:57] VITALS: BP 160/80; BMI 28.8
[2023-01-03 15:11] VITALS: BP 122/73; PULSE 74; RESP 18; TEMP 36.8; O2SAT 95
[2023-01-03 15:21] VITALS: BP 122/73; O2SAT 94
[2023-01-03 15:37] LABS: Basophils # 0.1 10^3/uL (0.0-0.1); Basophils % 0.9 %; Eosinophils # 0.4 10^3/uL (0.0-0.8); Eosinophils % 3.6 %; Hematocrit 44.6 % (36-47); Lymphocytes # 3.5 10^3/uL (0.8-4.8); Lymphocytes % 32.6 %; Mean Corpuscular HGB Conc 32.5 g/dL (30-55); Mean Corpuscular Hemoglobin 30.4 pg (27-33); Mean Corpuscular Volume 93.5 fl (85-98); Mean Platelet Volume 10.2 fL (7.4-10.4); Monocytes # 0.6 10^3/uL (0.2-0.9); Monocytes % 5.9 %; Neutrophils # 6.07 10^3/uL (1.8-7.7); Neutrophils % 56.7 %; Nucleated Red Blood Cells % 0 %; Platelet Count 321 10^3/cmm (157-399); Red Blood Count 4.77 10^6/uL (3.85-5.65); Red Cell Distribution Width 13.1 % (12.1-15.1); White Blood Count 10.71 10^3/uL (3.29-11.43)
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
[2023-01-03] MEDS: promethazine 25 mg Tablet PO (15:44)
[2023-01-03] MEDS: sodium chloride 0.9% 1,000 ML 999 ML IV (15:44)
[2023-01-03] MEDS: meclizine 25 mg tablet PO (15:44)
[2023-01-03 15:57] LABS: Alanine Aminotransferase 17 U/L (0-33); Albumin Level 4.6 g/dL (3.5-5.2); Alkaline Phosphatase 89 U/L (35-105); Anion Gap 11.7 (5-19); Aspartate Amino Transferase 17 U/L (0-32); Blood Urea Nitrogen 14 mg/dL (6-20); Calcium 10.2 mg/dL (8.5-10.5); Carbon Dioxide 28 mmol/L (22-29); Chloride 106 mmol/L (98-107); Globulin 2.7 g/dL (1.3-4.6); Glomerular Filtration Rate 73.9 mL/min (90-130); Glucose 152 mg/dL (65-115); Lipase 25 U/L (13-60); Osmolality Calculated 297 mOsm/kg (285-295); Potassium 3.7 mmol/L (3.5-5.1); Sodium 142 mmol/L (136-145); Total Bilirubin 0.3 mg/dL (0.15-1.2); Total Protein 7.3 g/dL (6.6-8.7)
[2023-01-03 16:13] LABS: Amphetamines Screen Urine Positive (Negative); Barbiturates Screen Urine Negative (Negative); Benzodiazepines Screen Urine Negative (Negative); Cocaine Screen Urine Negative (Negative); Opiate Screen Urine Negative (Negative); PCP Screen Urine Negative (Negative); THC Screen Urine Negative (Negative)
[2023-01-03 16:20] LABS: Add Urine Culture? No; Add Urine Microscopic? YES; Bacteria Urine TRACE /hpf; Bilirubin Urine Neg (Negative); Blood Urine Neg (Negative); Glucose Urine UA Norm (Normal); Ketones Urine Negative (Negative); Leukocyte Esterase Urine 1+ (Negative); Nitrate Urine Negative (Negative); Protein Urine Neg (Negative); RBC Urine 0-4 /hpf (0-2); Urine Appearance Clear (CLEAR); Urine Color Yellow (Yellow); Urobilinogen Urine Norm (Negative); pH Urine 5 (5-7)
== END 2023-01-03 17:17 | disposition home or self-care (01) ==
PROVIDERS: Emergency Provider Emergency Medicine; PCP Nurse Practitioner
DX: R11.2 Nausea with vomiting, unspecified (principal); R42 Dizziness and giddiness; F15.90 Other stimulant use, unspecified, uncomplicated; F17.210 Nicotine dependence, cigarettes, uncomplicated; F17.290 Nicotine dependence, other tobacco product, uncomplicated; J44.9 Chronic obstructive pulmonary disease, unspecified; E11.9 Type 2 diabetes mellitus without complications
CPT/HCPCS: 80053; 80306; 81001; 83690; 85025; 87086; 99284; J7030; J8597; Q0169

== ENCOUNTER 2023-02-08 12:31 | Emergency (ER) | payer MEDICARE, MEDICAID, SELFPAY ==
[2022-06-20 14:57] VITALS: BP 160/80; BMI 28.8
[2023-02-08 12:00] VITALS: BP 122/75; PULSE 83; RESP 18; TEMP 36.8; O2SAT 95; BMI 31.2
[2023-02-08 12:49] LABS: Basophils # 0.1 10^3/uL (0.0-0.1); Eosinophils # 0.1 10^3/uL (0.0-0.8); Eosinophils % 1.5 %; Hematocrit 42.8 % (36-47); Lymphocytes # 3.5 10^3/uL (0.8-4.8); Mean Corpuscular HGB Conc 32.5 g/dL (30-55); Mean Corpuscular Hemoglobin 30.5 pg (27-33); Mean Corpuscular Volume 94.1 fl (85-98); Mean Platelet Volume 10.7 fL (7.4-10.4); Monocytes # 0.7 10^3/uL (0.2-0.9); Neutrophils # 4.24 10^3/uL (1.8-7.7); Neutrophils % 49.3 %; Nucleated Red Blood Cells % 0 %; Platelet Count 311 10^3/cmm (157-399); Red Blood Count 4.55 10^6/uL (3.85-5.65); Red Cell Distribution Width 13.2 % (12.1-15.1); White Blood Count 8.62 10^3/uL (3.29-11.43)
[2023-02-08] MEDS: ondansetron 2 mg/ML SDV 2 mL 4 MG IVP (13:04)
[2023-02-08] MEDS: sodium chloride 0.9% 1,000 ML 999 ML IV (13:04)
[2023-02-08 13:07] VITALS: BP 126/76
[2023-02-08 13:10] LABS: Alanine Aminotransferase 18 U/L (0-33); Albumin Level 4.4 g/dL (3.5-5.2); Alkaline Phosphatase 88 U/L (35-105); Anion Gap 13.4 (5-19); Aspartate Amino Transferase 18 U/L (0-32); Blood Urea Nitrogen 14 mg/dL (6-20); Calcium 9.9 mg/dL (8.5-10.5); Carbon Dioxide 26 mmol/L (22-29); Chloride 105 mmol/L (98-107); Globulin 2.9 g/dL (1.3-4.6); Glomerular Filtration Rate 64.5 mL/min (90-130); Glucose 127 mg/dL (65-115); Lipase 32 U/L (13-60); Osmolality Calculated 294 mOsm/kg (285-295); Potassium 3.4 mmol/L (3.5-5.1); Sodium 141 mmol/L (136-145); Total Bilirubin 0.3 mg/dL (0.15-1.2); Total Protein 7.3 g/dL (6.6-8.7)
[2023-02-08 13:26] LABS: Add Urine Microscopic? NO; Charge for UA Resulting for Rev
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
--- NOTE | 2023-02-08 13:44 | CTR_ITS ---
PROCEDURE INFORMATION: Exam: CT Head Without Contrast Exam date and time: 02/08/2023 2:09 PM Age: 57 years old Clinical indication: Pain; Headache TECHNIQUE: Imaging protocol: Computed tomography of the head without contrast. Radiation optimization: All CT scans at this facility use at least one of these dose optimization techniques: automated exposure control; mA and/or kV adjustment per patient size (includes targeted exams where dose is matched to clinical indication); or iterative reconstruction. REPORTING DATA: Count of CT and Cardiac NM exams in prior 12 months: This patient has received 7 known CTs and 0 known cardiac nuclear medicine studies in the 12 months prior to the current study. COMPARISON: CT head wo con* [id number] 10/24/2022 7:04 PM RADIATION DOSE METRICS: Total DLP (mGy-cm): 915.48 FINDINGS: Brain: There is hypoattenuation in the periventricular and subcortical white matter consistent with chronic microvascular disease. There is no significant mass effect or midline shift. There is no acute intracranial hemorrhage. Cerebral ventricles: There is no significant ventricular dilation. The basal cisterns are unremarkable. Paranasal sinuses: The paranasal sinuses are clear. Mastoid air cells: The mastoid air cells are clear. Bones/joints: The calvarium is intact. Soft tissues: The visible extracranial soft tissues are unremarkable. CT/CT head wo con* [id number] IMPRESSION: No acute intracranial abnormality.
[2023-02-08 14:05] VITALS: RESP 18
[2023-02-08] MEDS: HYDROmorphone 1 mg/mL INJ 1 mL 0.5 MG IVP (14:05)
[2023-02-08 14:08] LABS: Specific Gravity, Urine 1.005 (1.005-1.030); Urine Appearance Clear (CLEAR); Urine Color Straw (Yellow); pH Urine 6 (5-7)
[2023-02-08 14:09] LABS: Bilirubin Urine Neg (Negative); Blood Urine Neg (Negative); Glucose Urine UA 4+ (Normal); Ketones Urine Negative (Negative); Leukocyte Esterase Urine Negative (Negative); Nitrate Urine Negative (Negative); Protein Urine Neg (Negative); Urobilinogen Urine Norm (Negative)
[2023-02-08 16:00] VITALS: BP 134/62; PULSE 78; RESP 16; TEMP 36.6; O2SAT 100
[2023-02-08 17:22] VITALS: BP 126/62; PULSE 78; RESP 16; TEMP 36.6; O2SAT 100
== END 2023-02-08 19:13 | disposition home or self-care (01) ==
PROVIDERS: Emergency Provider Emergency Medicine; PCP Nurse Practitioner
DX: R51.9 Headache, unspecified (principal); F17.210 Nicotine dependence, cigarettes, uncomplicated; J44.9 Chronic obstructive pulmonary disease, unspecified; E11.9 Type 2 diabetes mellitus without complications
CPT/HCPCS: 36415; 70450; 80053; 81003; 83690; 85025; 96361; 96374; 96375; 99285; J1170; J2405; J7030

== ENCOUNTER 2023-02-10 05:55 | Emergency (ER) | payer MEDICARE, MEDICAID, SELFPAY ==
[2022-06-20 14:57] VITALS: BP 160/80; BMI 28.8
[2023-02-10 05:56] VITALS: BP 157/62; PULSE 76; RESP 20; TEMP 36.9; O2SAT 95; BMI 27.3
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
[2023-02-10 06:45] LABS: Basophils # 0.1 10^3/uL (0.0-0.1); Eosinophils # 0.2 10^3/uL (0.0-0.8); Hematocrit 47.1 % (36-47); Lymphocytes # 3.7 10^3/uL (0.8-4.8); Lymphocytes % 34.5 %; Mean Corpuscular HGB Conc 30.4 g/dL (30-55); Mean Corpuscular Hemoglobin 31.2 pg (27-33); Mean Corpuscular Volume 102.6 fl (85-98); Mean Platelet Volume 10.6 fL (7.4-10.4); Monocytes # 0.6 10^3/uL (0.2-0.9); Neutrophils # 5.97 10^3/uL (1.8-7.7); Neutrophils % 56.1 %; Nucleated Red Blood Cells % 0 %; Platelet Count 341 10^3/cmm (157-399); Red Blood Count 4.59 10^6/uL (3.85-5.65); Red Cell Distribution Width 13.2 % (12.1-15.1); White Blood Count 10.64 10^3/uL (3.29-11.43)
[2023-02-10 06:57] LABS: Urine Appearance Clear (CLEAR); Urine Color Yellow (Yellow)
[2023-02-10 06:58] LABS: Add Urine Culture? No; Add Urine Microscopic? YES; Bacteria Urine TRACE /hpf; Bilirubin Urine Neg (Negative); Blood Urine Neg (Negative); Glucose Urine UA 4+ (Normal); Ketones Urine Negative (Negative); Leukocyte Esterase Urine Trace (Negative); Mucus Urine TRACE /hpf; Nitrate Urine Negative (Negative); Protein Urine Neg (Negative); RBC Urine 0-4 /hpf (0-2); Specific Gravity, Urine 1.015 (1.005-1.030); Squamous Epithelial Cell Urine 0-4 /hpf (0-5); Urobilinogen Urine Neg (Negative); WBC Urine 0-4 /hpf (0-5); pH Urine 6 (5-7)
[2023-02-10 07:02] LABS: Amphetamines Screen Urine Positive (Negative); Barbiturates Screen Urine Negative (Negative); Benzodiazepines Screen Urine Negative (Negative); Cocaine Screen Urine Negative (Negative); Opiate Screen Urine Negative (Negative); PCP Screen Urine Negative (Negative); THC Screen Urine Negative (Negative)
[2023-02-10 07:05] LABS: Alanine Aminotransferase 17 U/L (0-33); Albumin Level 4.7 g/dL (3.5-5.2); Alkaline Phosphatase 83 U/L (35-105); Anion Gap 13.3 (5-19); Aspartate Amino Transferase 16 U/L (0-32); Blood Urea Nitrogen 9 mg/dL (6-20); Calcium 10.1 mg/dL (8.5-10.5); Carbon Dioxide 23 mmol/L (22-29); Chloride 110 mmol/L (98-107); Globulin 2.1 g/dL (1.3-4.6); Glomerular Filtration Rate 86.2 mL/min (90-130); Glucose 160 mg/dL (65-115); Osmolality Calculated 296 mOsm/kg (285-295); Potassium 4.3 mmol/L (3.5-5.1); Sodium 142 mmol/L (136-145); Total Bilirubin 0.3 mg/dL (0.15-1.2); Total Protein 6.8 g/dL (6.6-8.7)
[2023-02-10 07:07] LABS: Acetaminophen < 5.0 ug/mL (10-30); Salicylate < 0.3 mg/dL (3-10)
[2023-02-10 07:10] LABS: SARS Covid-2 Antigen negative (Negative)
--- NOTE | 2023-02-10 07:46 | PC.PHAR ---
UNABLE TO COMPLETE MED REC ON THIS PT- PT UNABLE TO ANSWER QUESTIONS ABOUT MEDS
[2023-02-10 07:56] LABS: Lithium < 0.1 mmol/L (0.6-1.2)
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
--- NOTE | 2023-02-10 11:05 | PC.NURSE ---
I took the patient's paper prescriptions to the [facility] in house outpatient pharmacy and got them all filled. I then gave the patient all of her prescriptions when I discharged the patient so she would have all of her daily medications.
== END 2023-02-10 11:16 | disposition home or self-care (01) ==
PROVIDERS: Emergency Provider Family Medicine; PCP Nurse Practitioner
DX: F25.1 Schizoaffective disorder, depressive type (principal); Z11.52 Encounter for screening for COVID-19; F17.210 Nicotine dependence, cigarettes, uncomplicated; J44.9 Chronic obstructive pulmonary disease, unspecified; E11.9 Type 2 diabetes mellitus without complications
CPT/HCPCS: 80053; 80178; 80306; 80307; 81001; 85025; 87426; 99283

== ENCOUNTER → 2023-02-12 12:08 | Outpatient (BNVA) | payer MEDICARE, MEDICAID, SELFPAY ==
[2022-06-20 14:57] VITALS: BP 160/80; BMI 28.8
== END ==
PROVIDERS: PCP Nurse Practitioner; Visit Provider Nurse Practitioner
DX: M25.561 Pain in right knee
CPT/HCPCS: 73562

== ENCOUNTER 2023-05-01 19:40 | Emergency (ER) | payer MEDICARE, MEDICAID, SELFPAY ==
[2023-05-01 10:19] VITALS: BP 160/80; BMI 28.8
[2023-05-01 19:47] VITALS: BP 120/68; PULSE 81; RESP 16; TEMP 36.7; O2SAT 95
--- NOTE | 2023-05-01 19:47 | XRR_ITS ---
PROCEDURE INFORMATION: Exam: XR Left Wrist Exam date and time: 05/01/2023 8:10 PM Age: 57 years old Clinical indication: Injury or trauma; Fall; Additional info: Lt wrist/elbow pain post fall TECHNIQUE: Imaging protocol: Radiologic exam of the left wrist. Views: 3 or more views. COMPARISON: CR ( EX, ) 05/01/2023 8:10 PM FINDINGS: Bones/joints: Comminuted posteriorly angulated intra-articular fracture distal left radial metaphysis. Avulsion fracture of the left ulnar styloid. Soft tissues: Normal. XR/XR wrist LT min 3V* [id number] IMPRESSION: 1. Comminuted posteriorly angulated intra-articular fracture distal left radial metaphysis. 2. Avulsion fracture of the left ulnar styloid.
--- NOTE | 2023-05-01 19:47 | XRR_ITS ---
PROCEDURE INFORMATION: Exam: XR Left Elbow Exam date and time: 05/01/2023 8:10 PM Age: 57 years old Clinical indication: Injury or trauma; Other: Lt wrist/elbow pain post fall TECHNIQUE: Imaging protocol: Radiologic exam of the left elbow. Views: 3 or more views. COMPARISON: CR (UP EX, ) 05/01/2023 8:10 PM FINDINGS: Bones/joints: Normal. Soft tissues: Normal. XR/XR elbow LT min 3V* [id number] IMPRESSION: No acute findings.
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
[2023-05-01 21:25] VITALS: BP 122/62; PULSE 87; RESP 16; O2SAT 93
--- NOTE | 2023-05-02 04:22 | DCPLANNER ---
Message sent to Ortho for a follow up on a wrist fx
== END 2023-05-01 21:28 | disposition home or self-care (01) ==
PROVIDERS: Emergency Provider Emergency Medicine; PCP Nurse Practitioner
DX: S52.572A Other intraarticular fracture of lower end of left radius, initial encounter for closed fracture (principal); S52.612A Displaced fracture of left ulna styloid process, initial encounter for closed fracture; W01.0XXA Fall on same level from slipping, tripping and stumbling without subsequent striking against object, initial encounter; E11.9 Type 2 diabetes mellitus without complications; J44.9 Chronic obstructive pulmonary disease, unspecified; Z72.0 Tobacco use
CPT/HCPCS: 29125; 73080; 73110; 99283

== ENCOUNTER 2023-05-08 06:00 | Outpatient (CLI) | payer MEDICARE, MEDICAID, SELFPAY | END 2023-05-08 06:01 | LOC: SOT 05-09 09:30 | PROVIDERS: PCP Nurse Practitioner; Visit Provider Family Medicine | DX: Z46.89 Encounter for fitting and adjustment of other specified devices (principal); S62.102D Fracture of unspecified carpal bone, left wrist, subsequent encounter for fracture with routine healing; X58.XXXD Exposure to other specified factors, subsequent encounter | CPT/HCPCS: 99203; L3982 ==

== ENCOUNTER → 2023-05-08 14:35 | Outpatient (BNVA) | payer MEDICARE, MEDICAID, SELFPAY ==
[2023-05-01 10:19] VITALS: BP 160/80; BMI 28.8
== END ==
PROVIDERS: PCP Nurse Practitioner; Referring Provider Emergency Medicine; Visit Provider Orthopaedic Surgery
DX: S52.592A Other fractures of lower end of left radius, initial encounter for closed fracture (principal); W19.XXXA Unspecified fall, initial encounter; Z46.89 Encounter for fitting and adjustment of other specified devices; S62.102D Fracture of unspecified carpal bone, left wrist, subsequent encounter for fracture with routine healing; X58.XXXD Exposure to other specified factors, subsequent encounter
CPT/HCPCS: 73110; 99203; L3982

== ENCOUNTER 2023-05-15 18:33 | Emergency (ER) | payer MEDICARE, MEDICAID, SELFPAY ==
[2023-05-14 10:44] VITALS: BP 160/80; BMI 28.8
[2023-05-15 18:34] VITALS: BMI 32.2
[2023-05-15 18:40] VITALS: BP 161/98; PULSE 100; RESP 16; TEMP 36.9; O2SAT 97
[2023-05-15 18:54] VITALS: BP 157/89; PULSE 88; RESP 16; O2SAT 100
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
== END 2023-05-15 18:59 | disposition home or self-care (01) ==
PROVIDERS: Emergency Provider Emergency Medicine; PCP Nurse Practitioner
DX: R56.9 Unspecified convulsions (principal); F17.210 Nicotine dependence, cigarettes, uncomplicated; E11.9 Type 2 diabetes mellitus without complications; J44.9 Chronic obstructive pulmonary disease, unspecified
CPT/HCPCS: 80053; 80061; 81000; 83036; 99281

== ENCOUNTER → 2023-05-30 12:55 | Outpatient (BNVA) | payer MEDICARE, MEDICAID, SELFPAY ==
[2023-05-14 10:44] VITALS: BP 160/80; BMI 28.8
== END ==
PROVIDERS: PCP Nurse Practitioner; Visit Provider Orthopaedic Surgery
DX: S52.502A Unspecified fracture of the lower end of left radius, initial encounter for closed fracture (principal); X58.XXXA Exposure to other specified factors, initial encounter
CPT/HCPCS: 36415; 73110; 80053; 81003; 85025; 99214

== ENCOUNTER 2023-06-04 08:20 | Day surgery (SDC) | payer MEDICARE, MEDICAID, SELFPAY ==
[2023-05-14 10:44] VITALS: BP 160/80; BMI 28.8
[2023-06-04] VITALS (13 sets, daily range): BP systolic 104–147; BP diastolic 52–90; PULSE 84–99; RESP 16–27; TEMP 36.3–36.9; O2SAT 91–99; BMI 26.4
--- NOTE | 2023-06-04 | XR_ITS ---
WS: [id number] Examination: XR wrist LT 2V [id number] Reason for Exam: or pic, orif wrist Date: June 04, 2023 Comparison: May 30, 2023 Findings: 2 intraoperative images been obtained with 49.3 seconds of fluoroscopy. The dap is 0.79 mGy. IMPRESSION: Intraoperative images demonstrate plate and screw fixation of the distal radial fracture. Alignment a ppears satisfactory. Ulnar styloid fracture is identified. There is soft tissue swelling. Please see intraoperative note for full explanation of findings and the procedure.
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
[2023-06-04 09:02] LABS: Glucose Point of Care 126 mg/dL (70-110)
[2023-06-04] MEDS: sodium chloride 0.9% 1,000 ML 30 ML IV (09:10)
--- NOTE | 2023-06-04 09:19 | W.PM.OPSUD ---
Surgery/Procedure H&P Update DATE OF PROCEDURE: June 04, 2023 DATE H&P PERFORMED: 05/30/23 H&P UPDATE INFORMATION: I have reviewed H&P completed within last 30 days, I have examined patient prior to procedure and No changes to prior documentation PREOP DIAGNOSIS: Distal radius fracture on the left PLANNED PROCEDURE: Operation Date: 06/04/23 09:55 Proposed Procedures p ORIF Wrist(Left) - Papito Walker DO
[2023-06-04] MEDS: ceFAZolin 2,000 MG in sodium chloride 0.9% (plus) 50 ML 100 MG IV (09:31)
--- NOTE | 2023-06-04 09:31 | ANES.PROC ---
Anesthesia Procedures Procedure/Date: 06/04/23 Nerve Block ^: Nerve Block 1: Main Anesthesia: general anesthesia Time Out Performed: Yes Consent: requested by attending/covering physician, from patient, from other, risks and benefits reviewed and patient agrees to proceed Nerve block location: axillary (L) Anesthesia monitors applied: pulse oximetry, EKG and BP cuff Nerve block position: supine Anesthetic Used: ropivicaine 0.5% (30 ml) and with decadron (4 mg) Ultrasound used to: recognize landmarks and visualize and ID brachial plexus Nerve Stimulator Used?: No Interscalene/Femoral BLK: 2 stimuplex 22 g needle used for position and inplane approach, visualize local anesthetic spread and no vascular puncture identified Complications: pain with procedure (Patient stated parasthesia in her thumb when placing local anesthetic by musculocutaneous nerve. Injection halted at that location and moved )
[2023-06-04] MEDS: lidocaine 1% INJ 10 mL (per mL) INJECTION (10:14)
--- NOTE | 2023-06-04 11:43 | P.OP_ITS ---
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 Left arm was prepped and draped normal sterile fashion tourniquet was used. Skin incision was made over the flexor carpi radialis the interval through the tendon sheath was used radial artery was retracted radially and pronator quadratus was taken down reflected ulnarly the nonunion site was identified. Osteotome was then used to break up where the fracture was and then the fracture was reduced. A Stephenson distal radius plate was placed 2 pins and 3 screws were placed in the distal end of the plate. And then the fracture was reduced and the plate was reduced down to the bone of the shaft. 2 screws were placed into the shaft. The pins were then removed. AP lateral fluoroscopy ensured that the fracture was reduced. Calcium phosphate was injected into the fracture site dorsally. Wounds irrigated closed with Vicryl Monocryl suture. Sterile dressings were applied patient transferred to the PACU in stable condition.
--- NOTE | 2023-06-04 13:15 | ANE.PACU2 ---
Inpatient post-anesthesia follow up: Airway intact: Yes Vital signs: Temperature 97.6 F Pulse Rate 90 Respiratory Rate 18 Blood Pressure 127/52 Pulse Oximetry 95 Oxygen Delivery Me thod Nasal Cannula Oxygen Flow Rate 2 Fraction of Inspir ed Oxygen Hydration adequate: Yes Nausea and vomiting: No Pain level: 1 Mental status: Baseline
== END 2023-06-04 13:15 | disposition home or self-care (01) ==
PROVIDERS: PCP Nurse Practitioner; Visit Provider Orthopaedic Surgery
PROC: (CPT 25607; principal; 2023-06-04 09:45)
DX: S52.552P Other extraarticular fracture of lower end of left radius, subsequent encounter for closed fracture with malunion (principal); X58.XXXD Exposure to other specified factors, subsequent encounter; J44.9 Chronic obstructive pulmonary disease, unspecified; K21.9 Gastro-esophageal reflux disease without esophagitis; E11.9 Type 2 diabetes mellitus without complications; M79.7 Fibromyalgia; Z86.73 Personal history of transient ischemic attack (TIA), and cerebral infarction without residual deficits; F03.90 Unspecified dementia, unspecified severity, without behavioral disturbance, psychotic disturbance, mood disturbance, and anxiety; F17.210 Nicotine dependence, cigarettes, uncomplicated; Z98.1 Arthrodesis status
CPT/HCPCS: 25607; 36416; 73100; 76000; 82962; C1713; J0690; J1100; J2250; J2704; J2795; J3010; J7030

== ENCOUNTER → 2023-06-17 07:52 | Outpatient (BNVA) | payer MEDICARE, MEDICAID, SELFPAY ==
[2023-06-05 09:55] VITALS: BP 157/89; BMI 32.2
== END ==
PROVIDERS: PCP Nurse Practitioner; Visit Provider Orthopaedic Surgery
DX: Z48.89 Encounter for other specified surgical aftercare
CPT/HCPCS: 99024

== ENCOUNTER 2023-06-17 09:57 | Outpatient (CLI) | payer MEDICARE, MEDICAID, SELFPAY ==
[2023-06-05 09:55] VITALS: BP 157/89; BMI 32.2
== END 2023-06-17 09:58 | disposition home or self-care (01) ==
LOC: SPT 09:58
PROVIDERS: PCP Nurse Practitioner; Visit Provider Orthopaedic Surgery
DX: Z46.89 Encounter for fitting and adjustment of other specified devices (principal); S52.592D Other fractures of lower end of left radius, subsequent encounter for closed fracture with routine healing; X58.XXXD Exposure to other specified factors, subsequent encounter
CPT/HCPCS: 97760; L3908

== ENCOUNTER → 2023-07-14 09:23 | Outpatient (BNVA) | payer MEDICARE, MEDICAID, SELFPAY ==
[2023-06-05 09:55] VITALS: BP 157/89; BMI 32.2
== END ==
PROVIDERS: PCP Nurse Practitioner; Visit Provider Nurse Practitioner Psychiatric/Mental Health
DX: Z79.899 Other long term (current) drug therapy (principal); Z51.81 Encounter for therapeutic drug level monitoring; F25.1 Schizoaffective disorder, depressive type; G24.01 Drug induced subacute dyskinesia; G37.9 Demyelinating disease of central nervous system, unspecified; E85.4 Organ-limited amyloidosis; I68.0 Cerebral amyloid angiopathy
CPT/HCPCS: 80053; 80178

== ENCOUNTER → 2023-07-15 11:38 | Outpatient (BNVA) | payer MEDICARE, MEDICAID, SELFPAY ==
[2023-06-05 09:55] VITALS: BP 157/89; BMI 32.2
== END ==
PROVIDERS: PCP Nurse Practitioner; Visit Provider Nurse Practitioner
DX: R05.9 Cough, unspecified (principal); J06.9 Acute upper respiratory infection, unspecified; J43.8 Other emphysema; R50.9 Fever, unspecified; R53.1 Weakness
CPT/HCPCS: 71046; 87486; 87581; 87633

== ENCOUNTER → 2023-09-11 11:28 | Outpatient (BNVA) | payer MEDICARE, MEDICAID, SELFPAY ==
[2023-08-21 13:26] VITALS: BP 157/89; BMI 32.2
== END ==
PROVIDERS: PCP Nurse Practitioner; Visit Provider Orthopaedic Surgery
DX: Z48.89 Encounter for other specified surgical aftercare (principal); M25.532 Pain in left wrist
CPT/HCPCS: 73110; 99213

== ENCOUNTER → 2023-09-29 16:41 | Outpatient (BNVA) | payer MEDICARE, MEDICAID, SELFPAY ==
[2023-08-21 13:26] VITALS: BP 157/89; BMI 32.2
== END ==
PROVIDERS: PCP Nurse Practitioner; Visit Provider Nurse Practitioner
DX: E11.9 Type 2 diabetes mellitus without complications (principal)
CPT/HCPCS: 81000

== ENCOUNTER → 2023-10-02 13:06 | Outpatient (BNVA) | payer MEDICARE, MEDICAID, SELFPAY ==
[2023-08-21 13:26] VITALS: BP 157/89; BMI 32.2
== END ==
PROVIDERS: PCP Nurse Practitioner; Visit Provider Nurse Practitioner
DX: E11.9 Type 2 diabetes mellitus without complications (principal); E55.9 Vitamin D deficiency, unspecified; Z79.899 Other long term (current) drug therapy
CPT/HCPCS: 80053; 80061; 83036

== ENCOUNTER 2023-10-29 07:58 | Inpatient (IN) | payer MEDICARE, MEDICAID, SELFPAY ==
[2023-08-21 13:26] VITALS: BP 157/89; BMI 32.2
[2023-10-29] VITALS (7 sets, daily range): BP systolic 96–122; BP diastolic 62–77; PULSE 73–92; RESP 16–22; TEMP 35.8–37.1; O2SAT 94–98
--- NOTE | 2023-10-29 08:19 | XRR_ITS ---
PROCEDURE INFORMATION: Exam: XR Chest Exam date and time: 10/29/2023 8:22 AM Age: 58 years old Clinical indication: Shortness of breath; Patient HX: PT drank bleach; Additional info: Aspiration TECHNIQUE: Imaging protocol: Radiologic exam of the chest. Views: 1 view. COMPARISON: CR XR chest 2V* [id number] 07/15/2023 11:36 AM FINDINGS: Lungs: Unremarkable. No consolidation. Pleural spaces: Unremarkable. No pleural effusion. No pneumothorax. Heart/Mediastinum: Unremarkable. No cardiomegaly. Bones/joints: ACDF plate noted. Negative for thoracic fracture. XR/XR chest 1V portable [id number] IMPRESSION: Negative for acute pulmonary disease.
[2023-10-29 08:38] LABS: Basophils # 0.1 10^3/uL (0.0-0.1); Eosinophils # 0.8 10^3/uL (0.0-0.8); Eosinophils % 6.8 %; Hematocrit 43.9 % (36-47); Lymphocytes # 2.4 10^3/uL (0.8-4.8); Mean Corpuscular HGB Conc 32.8 g/dL (30-55); Mean Corpuscular Hemoglobin 30.3 pg (27-33); Mean Corpuscular Volume 92.4 fl (85-98); Mean Platelet Volume 11.1 fL (7.4-10.4); Monocytes # 0.7 10^3/uL (0.2-0.9); Monocytes % 5.6 %; Neutrophils # 7.93 10^3/uL (1.8-7.7); Neutrophils % 66.4 %; Nucleated Red Blood Cells % 0 %; Platelet Count 264 10^3/cmm (157-399); Red Blood Count 4.75 10^6/uL (3.85-5.65); Red Cell Distribution Width 13.2 % (12.1-15.1); White Blood Count 11.94 10^3/uL (3.29-11.43)
[2023-10-29 08:57] LABS: Alanine Aminotransferase 12 U/L (0-33); Alkaline Phosphatase 94 U/L (35-105); Anion Gap 15.9 (5-19); Aspartate Amino Transferase 16 U/L (0-32); Blood Urea Nitrogen 15 mg/dL (6-20); Calcium 9.9 mg/dL (8.5-10.5); Carbon Dioxide 22 mmol/L (22-29); Chloride 108 mmol/L (98-107); Globulin 2.9 g/dL (1.3-4.6); Glomerular Filtration Rate 102.7 mL/min (90-130); Glucose 122 mg/dL (65-115); Osmolality Calculated 296 mOsm/kg (285-295); Potassium 3.9 mmol/L (3.5-5.1); Sodium 142 mmol/L (136-145); Total Bilirubin 0.7 mg/dL (0.15-1.2); Total Protein 6.9 g/dL (6.6-8.7)
[2023-10-29 09:00] LABS: Acetaminophen < 5.0 ug/mL (10-30); Alcohol Level < 10 mg/dL (0-10); Salicylate < 0.3 mg/dL (3-10)
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
--- NOTE | 2023-10-29 10:38 | PC.PHAR ---
PT IS UNABLE TO VERIFY HER MEDICATIONS. MED REC COMPLETED FROM PHARMACY MED LIST WITH FILL DATES AND DAYS SUPPLY.
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
[2023-10-29 12:14] LABS: Thyroid Stimulating Hormone 0.85 uIU/mL (0.27-4.20)
[2023-10-29 12:20] LABS: Estmated Average Glucose 134; Hemoglobin A1C 6.3 % (4.0-6.0)
[2023-10-29] MEDS: pantoprazole 40 mg SDV 80 MG IVP (12:25)
--- NOTE | 2023-10-29 13:40 | PC.NURSE ---
96 Hr rights reviewed with patient @0940. Patient verbalized that she understood the specifics of the hold. However, pt was extremely tearful and appears to be under the influence of something. Patient copy was left @bedside with patient. Cup of water provided to patient as requested.
[2023-10-29] MEDS: benztropine 1 mg Tablet PO ×2 (16:56→21:34)
[2023-10-29] MEDS: diphenhydrAMINE 50 mg/mL SDV 1mL IM (16:56)
[2023-10-29] MEDS: acetaminophen 325 mg Tablet 650 MG PO (16:57)
--- NOTE | 2023-10-29 17:19 | PC.NURSE ---
PT OBSERVED WITH SEVERE JERKING AND TWITCHING OF UPPER AND LOWER EXTREMITIES WELL HEAD AND NECK. WAS NOTIFIED OF ALL THE ABOVE ALONG WITH HISTORY OF TARDATIVE DISKINISHIA AND METHAMPHETAMINE ABUSE HISTORY. PT ADMITS TO USING METHAMPHETAMINES WHEN THEY MAKE ME. NEW ORDERS WERE RECEIVED TO RESTART COGENTIN 1 MG AT HS. COGENTIN 1 MG WAS GIVEN ORDERED AND BENADRYL 50 MG WAS GIVEN IM FOR SEVERE AGITATION. PT WAS GIVEN TYLENOL 650 MG ORDERED FOR BILATERAL SHOULDER PAIN 11/21. RN WAS AT BEDSIDE COMFORTING PT AND COMPLETING ADMISSION ASSESSMENT. SUPPORT VOICED.
--- NOTE | 2023-10-29 18:01 | PC.NURSE ---
NEW ORDERS RECEIVED FOR PT ASSESS AND TREAT PT MAY NEED WALKER DUE TO UNSTEADY GAIT. ORDERS FOR OT ASSESS AND TREAT DUE TO UNCONTROLLABLE JERKING MOTION.
--- NOTE | 2023-10-29 18:15 | PC.NURSE ---
PT ARRIVED TO THE ER WITH COMPLAINTS OF DRINKING BLEACH. UPON ADMIT TO THE NPU PT IS TEARFUL, VISIBLE MUSCLE TREMORS, AND IN ACTIVE PAIN IN HER BILATERAL SHOULDERS. PT WAS COOPERATIVE WITH STAFF. WHILE WALKING PATIENT TO ROOM PT KEPT REPEATING IM SORRY, I'LL BE GOOD I PROMISE, IM SORRY PLEASE DON'T HURT ME. PT REPEATED THIS MULTIPLE TIMES THROUGHOUT GETTING DRESSED OUT. PT WAS VERY COOPERATIVE WITH ASSESSMENT. PT IS A POOR HISTORIAN STATING THAT SHE DOES NOT REMEMBER A NUMBER OF DIFFERENT THINGS INCLUDING PREVIOUS MEDICATIONS, AND PAST MEDICAL HISTORY. PT STATED THAT SHE LIVES IN A [place] WHICH SHE IS UNSURE IF SHE IS ABLE TO STAY AT. PT ENDORSES THAT SHE HAS HER AT HOME BUT STATES THAT LADY DOESN'T LIKE ME, SHE TAKES MY MEDICINE AND WON'T LET ME TAKE IT, SHE TAKES MY FOOD. PT ENDORSES HALLUCINATIONS STATING I HEAR VOICES TELLING ME TO KILL MYSELF. PT ENDORSES USING METH STATING I ONLY USE WHEN THEY FORCE ME TO USE. OTHER NURSE CAME IN DURING ASSESSMENT TO GIVE MEDICATION FOR PAIN AND TREMORS AND PT SAW ONE OF THE MEDICATIONS WERE IN A NEEDLE. PT RESPONDED BY BECOMING EXTREMELY TEARFUL, AND STATING NO NEEDLES, NO MORE NEEDLES, IM SORRY, I'LL BE GOOD. PLEASE NO MORE NEEDLES. PT WAS WILLING TO TAKE MEDICATION AFTER EXPLANATION. AND WAS COOPERATIVE WITH THE REST OF ASSESSMENT.
[2023-10-29 21:21] LABS: Glucose Point of Care 117 mg/dL (70-110)
[2023-10-29 21:21] LABS: Glucose Point of Care 93 mg/dL (70-110)
[2023-10-29] MEDS: tizanidine 4 mg Tablet 2 MG PO (21:33)
[2023-10-29] MEDS: lithium carbonate ER 300 mg Tablet 600 MG PO (21:33)
[2023-10-29] MEDS: pantoprazole DR 40 mg Tablet PO (21:34)
[2023-10-29 21:45] LABS: Add Urine Microscopic? YES; Bilirubin Urine Neg (Negative); Blood Urine Neg (Negative); Glucose Urine UA Norm (Normal); Ketones Urine 1+ (Negative); Leukocyte Esterase Urine 2+ (Negative); Nitrate Urine Negative (Negative); Protein Urine Neg (Negative); Specific Gravity, Urine 1.025 (1.005-1.030); Urine Appearance Slightly Cloudy (CLEAR); Urine Color Yellow (Yellow); Urobilinogen Urine Neg (Negative); pH Urine 5 (5-7)
[2023-10-29 21:46] LABS: Add Urine Culture? No; Bacteria Urine 3+ /hpf; Mucus Urine 2+ /hpf; WBC Urine 15-25 /hpf (0-5)
[2023-10-29 21:53] LABS: Amphetamines Screen Urine Positive (Negative); Barbiturates Screen Urine Negative (Negative); Benzodiazepines Screen Urine Negative (Negative); Cocaine Screen Urine Negative (Negative); Opiate Screen Urine Negative (Negative); PCP Screen Urine Negative (Negative); THC Screen Urine Negative (Negative)
[2023-10-30] VITALS (7 sets, daily range): BP systolic 96–107; BP diastolic 52–67; PULSE 61–110; RESP 14–18; TEMP 36.6–36.8; O2SAT 95–98
[2023-10-30] MEDS: ipratropium-albuterol 3 mL Neb INHALATION ×3 (07:16→20:55)
[2023-10-30 07:35] LABS: Glucose Point of Care 106 mg/dL (70-110)
[2023-10-30 08:28] LABS: Basophils # 0.1 10^3/uL (0.0-0.1); Basophils % 1.1 %; Eosinophils # 0.7 10^3/uL (0.0-0.8); Eosinophils % 5.7 %; Hematocrit 46.2 % (36-47); Lymphocytes # 4.2 10^3/uL (0.8-4.8); Mean Corpuscular HGB Conc 31.4 g/dL (30-55); Mean Corpuscular Hemoglobin 29.4 pg (27-33); Mean Corpuscular Volume 93.7 fl (85-98); Mean Platelet Volume 11.3 fL (7.4-10.4); Monocytes # 0.6 10^3/uL (0.2-0.9); Nucleated Red Blood Cells % 0 %; Platelet Count 273 10^3/cmm (157-399); Red Blood Count 4.93 10^6/uL (3.85-5.65); Red Cell Distribution Width 13.5 % (12.1-15.1); White Blood Count 12.22 10^3/uL (3.29-11.43)
[2023-10-30] MEDS: acetaminophen 325 mg Tablet 650 MG PO (08:48)
[2023-10-30] MEDS: zonisamide 100 MG Capsule PO ×2 (08:49→17:44)
[2023-10-30] MEDS: pantoprazole DR 40 mg Tablet PO ×2 (08:49→21:26)
[2023-10-30] MEDS: fenofibrate 145 mg Tablet PO (08:49)
[2023-10-30] MEDS: hyDROXYzine 25 mg Capsule 50 MG PO (08:49)
[2023-10-30] MEDS: sertraline 100 mg Tablet 150 MG PO (08:49)
[2023-10-30] MEDS: propranolol 20 mg Tablet PO ×2 (08:54→17:44)
--- NOTE | 2023-10-30 09:46 | P.PN_ITS ---
Subjective 2 Subjective: Patient is seen today. She denies any pain with swallowing. She has been drinking lots of water and actually had a normal breakfast. Medications: Reviewed: Yes Vitals/I&O/Wt Last Vital Signs Temp 98.1 F 10/30/23 06:00 Pulse 94 10/30/23 07:23 Resp 18 10/30/23 07:18 BP 107/67 10/30/23 06:00 Pulse Ox 98 10/30/23 07:18 O2 Del Method Room Air 10/30/23 07:18 O2 Flow Rate 2 10/29/23 18:00 Weight last 48 hrs Weight 49.895 kg Physical Exam 2 Narrative: General exam is a white female, conversant, tardive dyskinesia movements noted Oropharynx demonstrates no evidence of wallace Neck is supple no lymphadenopathy thyromegaly Cardiovascular regular rate and rhythm without murmur Lungs clear Abdomen is soft positive bowel sounds. Nontender Extremities no sinus clubbing edema Data 10/30/23 08:21 10/29/23 08:29 A&P Assessment and plan (1) Ingestion of bleach: Currently it is hard to know if a caustic substance was ingested. Certainly sometimes symptoms are delayed in alkaline ingestions, but apparently it has been over 6 hours since the ingestion. She indicates she ingested only a small amount, and then diluted it with significant Gatorade. This will reduce the likelihood of any injury. She does not appear to have any ill effects. Continue diet (2) Diabetes mellitus associated with pancreatic disease: Patient has not taken her diabetic medication quite some time Hemoglobin A1c 6.3. Her previous home medicine of empagliflozin was initiated. Diet was initiated Plan Other medical problems as outlined in past medical history I will sign off Attestations 2 Medical Necessity Statement*: As per primary Diagnoses Ingestion of bleach T54.91XA Diabetes mellitus associated with pancreatic disease E11.69; K86.9 Time Spent (min) 14
--- NOTE | 2023-10-30 10:17 | PC.NURSE ---
SITTING IN BED PT WAS OBSERVED SHAKING SO BADLY THAT PT ALMOST WENT INTO THE FLOOR FROM THE BED. RN ASSISTED PT SO SHE STAYED SITTING ON THE BED. DENIES SI/HI AT THIS TIME. PT STATES SHE ALWAYS SEES STUFF AND HEARS VOICED. THEY TELL ME TO KILL MYSELF BUT NO ONE BELIEVES ME. PT LEFT WRIST APPEARS TO BE SWOLLEN. DR. GONZALEZ HERE TO SEE PT AND RECOMMENDS SPEECH CONSULT DUE TO PTS HAVING A COUGHING FIT LAST NIGHT AND REPORTING SHE HAS TROUBLE SWALLOWING. PT AND OT CAME UP AND PT WAS GIVEN A WRIST SPLINT AND PLATFORM WALKER. AT 930 ORDERS WERE RECEIVED FOR ONE ON ONE OBSERVATION DUE TO INTERVENTIONS. NEW ORDERS RECEIVED FROM DR. MICHAEL FOR ONE ON ONE. PT EDUCATED ON NEW ORDERS. VERBALIZED UNDERSTANDING. PT IS DIFFICULT TO UNDERSTANDS, SPEECH IS RAPID, PRESSURED AND MUMBLED. PT MAKES STATEMENTS THAT HANNAH RIVERS ALWAYS MESSES WITH ME AND NO ONE BELIEVES ME, SHE MAKES ME CRAZY. PT IS IS OBSERVED RESPONDING TO VERBAL AND INTERNAL STIMULI. RATES ANXIETY 10/10 AND DEPRESSION 8/10. ALL QUESTIONS WERE ANSWERED AND SUPPORT WAS VOICED.
--- NOTE | 2023-10-30 11:06 | P.NPUHP_ITS ---
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 education level completed: GED or Equivalent service: No Current occupational status: disabled Current occupational exposures/hazards: No Pets and animals: Yes Pets & animals: cat(s) and dog(s) Pets & animal details: 4 dogs and 7 cats ( currently more rescue pets awaiting homes) Leisure activites: art and other Leisure activities details: making cat hammocks, playing and training dogs Sexually active: Yes Do you think of yourself as: Straight/Heterosexual Current gender identity: Female Violette/Baptism: Eugenio Special violette needs: No Agree to transfusion: Yes Female Reproductive History: Para: 0 Spontaneous abortions: Yes Mental Status Exam 2 MSE Comments: This is an underweight versus cachectic white female in hospital scrubs on with limited grooming and eye contact. Poor/absent dentition looking much older than her stated age. No abnormal movements except for significant psychomotor agitation consistent with tweaking from methamphetamine use. With limited cooperation with exam in moderate distress. Speech was mostly normal rate rate and decreased volume was significant slurring and speech impediment. Mood described as not good, affect congruent and irritable. Thought process organized. Thought content: Patient denied suicidal or homicidal ideation, there were no delusions reported or but likely paranoid and persecutory delusions noted, she denies any auditory or visual hallucinations this morning. The patient appears to be under significant stress and possibly fear due to her living situation. She reported feeling forced to comply with the demands of the unidentified woman, including consuming harmful substances. Attention and concentration appear limited and memory was unreliable but none were formally tested. Alert and oriented x person place. Insight, judgment and impulse control are impaired Vitals/I&O/Wt Last Vital Signs Temp 98.1 F 10/30/23 06:00 Pulse 94 10/30/23 07:23 Resp 18 10/30/23 07:18 BP 107/67 10/30/23 06:00 Pulse Ox 98 10/30/23 07:18 O2 Del Method Room Air 10/30/23 07:18 O2 Flow Rate 2 10/29/23 18:00 Weight last 48 hrs Weight 49.895 kg Data NPU 10/30/23 08:21 10/29/23 08:29 A&P Assessment and plan (1) Suicidal ideation: (2) Chronic migraine without aura, intractable, with status migrainosus: (3) Itching of ear: (4) Trauma of ear canal: (5) Left shoulder pain: (6) Seizure: (7) Demyelinating disease of central nervous system: (8) Hereditary central nervous system amyloid angiopathy: (9) Dementia: (10) Cannabis dependence, uncomplicated: (11) Schizoaffective disorder, depressive type: (12) Major depressive disorder, recurrent severe without psychotic features: (13) Methamphetamine use disorder, severe, dependence: (14) Drug-induced psychotic disorder: (15) Withdrawal from methamphetamine: (16) Suicidal ideation: Plan This is a 56 year old female with a history of schizoafffective disorder, cannabis dependence, and fibromyalgia muscle pain as well as active addiction who was admitted for recent suicidal ideation who now presents reporting that she is living a potentially dangerous living situation, being forced to consume harmful substances under threat. She has a history of drug use and is currently not in control of her medication intake, which is reportedly controlled by the same woman who forces her to consume harmful substances. 1.? Continue/restart current medication.? 2.? Continue every 15 minute checks for safety. 3.? Encourage individual, group and milieu therapies. 4.? Encourage sober living treatment after discharge at the highest level of care to which she is willing to commit. Involuntary Hold Information 2 96 Hour Hold: 96 Hour Involuntary Admission: Yes 96 Hour Hold Ending Date: 11/04/23 96 Hour Hold Ending Time: 09:00 Attestations NPU 2 Medical Necessity Statement*: Inpatient hospitalization is medically necessary and the clinically appropriate intervention at this time. We will evaluate for medication changes and safety for discharge. Patient will be in the hospital for over 2 midnights. Likely length of stay is 3-5 days. Coding Level of Care Code Acute Code for [facility] Fwd Diagnoses Suicidal ideation R45.851 Chronic migraine without aura, intractable, with status migrainosus G43.711 Itching of ear L29.9 Trauma of ear canal S09.91XA Left shoulder pain M25.512 Seizure R56.9 Demyelinating disease of central nervous system G37.9 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 Major depressive disorder, recurrent severe without psychotic features F33.2 Methamphetamine use disorder, severe, dependence F15.20 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
[2023-10-30 12:13] LABS: Glucose Point of Care 139 mg/dL (70-110)
[2023-10-30 17:57] LABS: Glucose Point of Care 140 mg/dL (70-110)
[2023-10-30] MEDS: lithium carbonate ER 300 mg Tablet 600 MG PO (21:23)
[2023-10-30] MEDS: benztropine 1 mg Tablet PO (21:24)
[2023-10-30] MEDS: tizanidine 4 mg Tablet 2 MG PO (21:24)
[2023-10-31 06:00] VITALS: BP 103/58; PULSE 53; RESP 15; TEMP 37.1; O2SAT 95
[2023-10-31 07:32] LABS: Glucose Point of Care 162 mg/dL (70-110)
[2023-10-31] MEDS: zonisamide 100 MG Capsule PO ×2 (08:29→17:47)
[2023-10-31] MEDS: sertraline 100 mg Tablet 150 MG PO (08:29)
[2023-10-31] MEDS: propranolol 20 mg Tablet PO ×2 (08:29→17:48)
[2023-10-31] MEDS: fenofibrate 145 mg Tablet PO (08:29)
[2023-10-31] MEDS: pantoprazole DR 40 mg Tablet PO ×2 (08:30→21:41)
[2023-10-31] MEDS: acetaminophen 325 mg Tablet 650 MG PO (08:32)
[2023-10-31 09:28] VITALS: PULSE 79; RESP 18; O2SAT 95
[2023-10-31 11:20] VITALS: PULSE 66; RESP 18; O2SAT 94
[2023-10-31 12:01] LABS: Glucose Point of Care 236 mg/dL (70-110)
[2023-10-31 14:00] VITALS: BP 127/73; PULSE 63; RESP 16; TEMP 36.6; O2SAT 95
--- NOTE | 2023-10-31 15:43 | P.NPUPN_ITS ---
Subjective NPU 2 Subjective: Patient presented today reporting that she is doing fairly well. She continues to have fairly consistent and notable psychomotor agitation/tweaking behavior per staff reports and direct observation. We discussed this issue in depth and she acknowledges that discontinuing her methamphetamine use would seem to be the right thing to do to avoid this side effect. She reports that her visited and was saying that he is missing her. We discussed likely making it through the weekend and considering discharge at the beginning of the week. She denied any side effects to the medication. Mental Status Exam 2 MSE Comments: This is an underweight versus cachectic white female in hospital scrubs on with limited grooming and eye contact. Poor/absent dentition looking much older than her stated age. No abnormal movements except for significant psychomotor agitation consistent with tweaking from methamphetamine use. With limited cooperation with exam in moderate distress. Speech was mostly normal rate rate and decreased volume was significant slurring and speech impediment. Mood described as not good, affect congruent and irritable. Thought process organized. Thought content: Patient denied suicidal or homicidal ideation, there were no delusions reported or but likely paranoid and persecutory delusions noted, she denies any auditory or visual hallucinations this morning. The patient appears to be under significant stress and possibly fear due to her living situation. She reported feeling forced to comply with the demands of the unidentified woman, including consuming harmful substances. Attention and concentration appear limited and memory was unreliable but none were formally tested. Alert and oriented x person place. Insight, judgment and impulse control are impaired Vitals/I&O/Wt Last Vital Signs Temp 98.8 F 10/31/23 06:00 Pulse 66 10/31/23 11:20 Resp 18 10/31/23 11:20 BP 103/58 10/31/23 06:00 Pulse Ox 94 10/31/23 11:20 O2 Del Method Room Air 10/31/23 11:20 O2 Flow Rate 2 10/29/23 18:00 Weight last 48 hrs Weight 49.895 kg Data NPU 10/30/23 08:21 10/29/23 08:29 A&P Assessment and plan (1) Suicidal ideation: (2) Chronic migraine without aura, intractable, with status migrainosus: (3) Itching of ear: (4) Trauma of ear canal: (5) Left shoulder pain: (6) Seizure: (7) Demyelinating disease of central nervous system: (8) Hereditary central nervous system amyloid angiopathy: (9) Dementia: (10) Cannabis dependence, uncomplicated: (11) Schizoaffective disorder, depressive type: (12) Major depressive disorder, recurrent severe without psychotic features: (13) Methamphetamine use disorder, severe, dependence: (14) Drug-induced psychotic disorder: (15) Withdrawal from methamphetamine: (16) Suicidal ideation: Plan This is a 56 year old female with a history of schizoafffective disorder, cannabis dependence, and fibromyalgia muscle pain as well as active addiction who was admitted for recent suicidal ideation who now presents reporting that she is living a potentially dangerous living situation, being forced to consume harmful substances under threat. She has a history of drug use and is currently not in control of her medication intake, which is reportedly controlled by the same woman who forces her to consume harmful substances. 1.? Continue/restart current medication.? 2.? Continue every 15 minute checks for safety. 3.? Encourage individual, group and milieu therapies. 4.? Encourage sober living treatment after discharge at the highest level of care to which she is willing to commit. Involuntary Hold Information 2 96 Hour Hold: 96 Hour Involuntary Admission: Yes 96 Hour Hold Ending Date: 11/04/23 96 Hour Hold Ending Time: 09:00 Attestations NPU 2 Medical Necessity Statement*: Inpatient hospitalization is medically necessary and the clinically appropriate intervention at this time. We will evaluate for medication changes and safety for discharge. Likely length of stay is 3-5 days. Coding Level of Care Code Acute Code for [facility] Fwd Diagnoses Suicidal ideation R45.851 Chronic migraine without aura, intractable, with status migrainosus G43.711 Itching of ear L29.9 Trauma of ear canal S09.91XA Left shoulder pain M25.512 Seizure R56.9 Demyelinating disease of central nervous system G37.9 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 Major depressive disorder, recurrent severe without psychotic features F33.2 Methamphetamine use disorder, severe, dependence F15.20 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
[2023-10-31 17:10] LABS: Glucose Point of Care 121 mg/dL (70-110)
[2023-10-31 21:05] LABS: Glucose Point of Care 217 mg/dL (70-110)
[2023-10-31 21:39] VITALS: BP 104/65; PULSE 60; RESP 16; TEMP 36.5; O2SAT 96
[2023-10-31] MEDS: tizanidine 4 mg Tablet 2 MG PO (21:41)
[2023-10-31] MEDS: ondansetron 4 MG Tablet PO (21:41)
[2023-10-31] MEDS: benztropine 1 mg Tablet PO (21:41)
[2023-10-31] MEDS: lithium carbonate ER 300 mg Tablet 600 MG PO (21:41)
[2023-11-01 02:40] VITALS: PULSE 49; RESP 17; O2SAT 96
[2023-11-01] MEDS: ipratropium-albuterol 3 mL Neb INHALATION ×2 (02:40→23:40)
[2023-11-01 02:47] VITALS: PULSE 52
[2023-11-01] MEDS: guaiFENesin-dextromethorphan UDC 10 mL PO (02:50)
[2023-11-01 06:00] VITALS: BP 108/65; PULSE 57; RESP 16; TEMP 36.6; O2SAT 93
[2023-11-01 07:49] LABS: Glucose Point of Care 174 mg/dL (70-110)
[2023-11-01] MEDS: sertraline 100 mg Tablet 150 MG PO (08:18)
[2023-11-01] MEDS: propranolol 20 mg Tablet PO ×2 (08:19→17:23)
[2023-11-01] MEDS: fenofibrate 145 mg Tablet PO (08:19)
[2023-11-01] MEDS: zonisamide 100 MG Capsule PO ×2 (08:19→17:23)
[2023-11-01] MEDS: pantoprazole DR 40 mg Tablet PO ×2 (08:20→20:34)
[2023-11-01 11:54] LABS: Glucose Point of Care 133 mg/dL (70-110)
[2023-11-01 14:00] VITALS: BP 94/52; PULSE 66; RESP 15; TEMP 36.8; O2SAT 94
--- NOTE | 2023-11-01 14:20 | P.NPUPN_ITS ---
Subjective NPU 2 Subjective: Patient presented today reporting that she is feeling a little better. She began lobbying for discharge but had no insight or even willingness to address how things will be different from the standpoint of her addiction which is generally the major contributor to her ending up in the hospital. She denied any side effects of medication. Mental Status Exam 2 MSE Comments: This is an underweight versus cachectic white female in hospital scrubs on with limited grooming and eye contact. Poor/absent dentition looking much older than her stated age. No abnormal movements except for significant psychomotor agitation consistent with tweaking from methamphetamine use. With limited cooperation with exam in moderate distress. Speech was mostly normal rate rate and decreased volume was significant slurring and speech impediment. Mood described as not good, affect congruent and irritable. Thought process organized. Thought content: Patient denied suicidal or homicidal ideation, there were no delusions reported or but likely paranoid and persecutory delusions noted, she denies any auditory or visual hallucinations this morning. The patient appears to be under significant stress and possibly fear due to her living situation. She reported feeling forced to comply with the demands of the unidentified woman, including consuming harmful substances. Attention and concentration appear limited and memory was unreliable but none were formally tested. Alert and oriented x person place. Insight, judgment and impulse control are impaired Vitals/I&O/Wt Last Vital Signs Temp 97.9 F 11/01/23 06:00 Pulse 57 L 11/01/23 06:00 Resp 16 11/01/23 06:00 BP 108/65 11/01/23 06:00 Pulse Ox 93 11/01/23 06:00 O2 Del Method Room Air 11/01/23 06:00 O2 Flow Rate 2 10/29/23 18:00 Data NPU 10/30/23 08:21 10/29/23 08:29 A&P Assessment and plan (1) Suicidal ideation: (2) Chronic migraine without aura, intractable, with status migrainosus: (3) Itching of ear: (4) Trauma of ear canal: (5) Left shoulder pain: (6) Seizure: (7) Demyelinating disease of central nervous system: (8) Hereditary central nervous system amyloid angiopathy: (9) Dementia: (10) Cannabis dependence, uncomplicated: (11) Schizoaffective disorder, depressive type: (12) Major depressive disorder, recurrent severe without psychotic features: (13) Methamphetamine use disorder, severe, dependence: (14) Drug-induced psychotic disorder: (15) Withdrawal from methamphetamine: (16) Suicidal ideation: Plan This is a 58 year old female with a history of schizoafffective disorder, cannabis dependence, and fibromyalgia muscle pain as well as active addiction who was admitted for recent suicidal ideation who now presents reporting that she is living a potentially dangerous living situation, being forced to consume harmful substances under threat. She has a history of drug use and is currently not in control of her medication intake, which is reportedly controlled by the same woman who forces her to consume harmful substances. 1.? Continue/restart current medication.? 2.? Continue every 15 minute checks for safety. 3.? Encourage individual, group and milieu therapies. 4.? Encourage sober living treatment after discharge at the highest level of care to which she is willing to commit. 5. Patient continues to have ambivalence about what is needed to ensure sobriety. Involuntary Hold Information 2 96 Hour Hold: 96 Hour Involuntary Admission: Yes 96 Hour Hold Ending Date: 11/04/23 96 Hour Hold Ending Time: 09:00 Attestations NPU 2 Medical Necessity Statement*: Inpatient hospitalization is medically necessary and the clinically appropriate intervention at this time. We will evaluate for medication changes and safety for discharge. Likely length of stay is 2-4 days. Coding Level of Care Code Acute Code for [facility] Fwd Diagnoses Suicidal ideation R45.851 Chronic migraine without aura, intractable, with status migrainosus G43.711 Itching of ear L29.9 Trauma of ear canal S09.91XA Left shoulder pain M25.512 Seizure R56.9 Demyelinating disease of central nervous system G37.9 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 Major depressive disorder, recurrent severe without psychotic features F33.2 Methamphetamine use disorder, severe, dependence F15.20 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
[2023-11-01 20:19] LABS: Glucose Point of Care 171 mg/dL (70-110)
[2023-11-01] MEDS: benztropine 1 mg Tablet PO (20:34)
[2023-11-01] MEDS: trazodone 50 mg Tablet PO (20:34)
[2023-11-01] MEDS: lithium carbonate ER 300 mg Tablet 600 MG PO (20:35)
[2023-11-01] MEDS: tizanidine 4 mg Tablet 2 MG PO (20:35)
[2023-11-01 20:40] VITALS: BP 104/60; PULSE 77; RESP 17; TEMP 36.8; O2SAT 94
[2023-11-01 23:40] VITALS: PULSE 60; RESP 17; O2SAT 95
[2023-11-02 06:00] VITALS: BP 112/71; PULSE 52; RESP 16; O2SAT 95
[2023-11-02 07:55] LABS: Glucose Point of Care 117 mg/dL (70-110)
[2023-11-02] MEDS: fenofibrate 145 mg Tablet PO (08:13)
[2023-11-02] MEDS: zonisamide 100 MG Capsule PO ×2 (08:13→17:48)
[2023-11-02] MEDS: pantoprazole DR 40 mg Tablet PO ×2 (08:13→21:17)
[2023-11-02] MEDS: sertraline 100 mg Tablet 150 MG PO (08:13)
[2023-11-02 08:19] VITALS: BP 98/65
--- NOTE | 2023-11-02 08:22 | PC.NURSE ---
PT BLOOD PRESSURE OBTAINED PRIOR TO ADMINISTERING PROPRANOLOL. PT BLOOD PRESSURE WAS 98/65. DUE TO THIS SOFT PRESSURE THIS NURSE DID NOT ADMINISTER PT MORNING DOSE OF PROPRANOLOL.
[2023-11-02 14:00] VITALS: BP 100/56; PULSE 58; RESP 15; TEMP 36.7; O2SAT 93
--- NOTE | 2023-11-02 14:24 | P.NPUPN_ITS ---
Subjective NPU 2 Subjective: Patient presented today reporting that she is doing fine. She continued to demonstrate significant ambivalence surrounding her drug use. She continued to endorse that her plans to take her to NA meetings to assist in her recovery. She continues to have no other willingness or commitment to any other active or intensive sober living treatments. She continued to be quite focused on her kidneys reporting that she is the only one that can take care of them. We discussed the likelihood of discharge tomorrow after we have clear understanding of appropriate follow-up. She denied any side effects of the medications. Mental Status Exam 2 MSE Comments: This is an underweight versus cachectic white female in hospital scrubs on with limited grooming and eye contact. Poor/absent dentition looking much older than her stated age. No abnormal movements except for significant psychomotor agitation consistent with tweaking from methamphetamine use. With limited cooperation with exam in mild to moderate distress. Speech was mostly normal rate rate and decreased volume was significant slurring and speech impediment. Mood described as I am fine and is worried about my kittens, affect congruent and irritable. Thought process organized. Thought content: Patient denied suicidal or homicidal ideation, there were no delusions reported or but likely paranoid and persecutory delusions noted, she denies any auditory or visual hallucinations this morning. The patient appears to be under significant stress and possibly fear due to her living situation. She reported feeling forced to comply with the demands of the unidentified woman, including consuming harmful substances. Attention and concentration appear limited and memory was unreliable but none were formally tested. Alert and oriented x person place. Insight and judgment are limited and impulse control is impaired Vitals/I&O/Wt Last Vital Signs Temp 98.2 F 11/01/23 20:40 Pulse 52 L 11/02/23 06:00 Resp 16 11/02/23 06:00 BP 98/65 11/02/23 08:19 Pulse Ox 95 11/02/23 06:00 O2 Del Method Room Air 11/02/23 06:00 O2 Flow Rate 2 10/29/23 18:00 Weight last 48 hrs Weight 53.07 kg Data NPU 10/30/23 08:21 10/29/23 08:29 A&P Assessment and plan (1) Suicidal ideation: (2) Chronic migraine without aura, intractable, with status migrainosus: (3) Itching of ear: (4) Trauma of ear canal: (5) Left shoulder pain: (6) Seizure: (7) Demyelinating disease of central nervous system: (8) Hereditary central nervous system amyloid angiopathy: (9) Dementia: (10) Cannabis dependence, uncomplicated: (11) Schizoaffective disorder, depressive type: (12) Major depressive disorder, recurrent severe without psychotic features: (13) Methamphetamine use disorder, severe, dependence: (14) Drug-induced psychotic disorder: (15) Withdrawal from methamphetamine: (16) Suicidal ideation: Plan This is a 58 year old female with a history of schizoafffective disorder, cannabis dependence, and fibromyalgia muscle pain as well as active addiction who was admitted for recent suicidal ideation who now presents reporting that she is living a potentially dangerous living situation, being forced to consume harmful substances under threat. She has a history of drug use and is currently not in control of her medication intake, which is reportedly controlled by the same woman who forces her to consume harmful substances. 1.? Continued/restarted current medication.? 2.? Continue every 15 minute checks for safety. 3.? Encourage individual, group and milieu therapies. 4.? Encourage sober living treatment after discharge at the highest level of care to which she is willing to commit. 5. Patient continues to have ambivalence about what is needed to ensure sobriety. Involuntary Hold Information 2 96 Hour Hold: 96 Hour Involuntary Admission: Yes 96 Hour Hold Ending Date: 11/04/23 96 Hour Hold Ending Time: 09:00 Attestations NPU 2 Medical Necessity Statement*: Inpatient hospitalization is medically necessary and the clinically appropriate intervention at this time. We will evaluate for medication changes and safety for discharge. Likely length of stay is 1-3 days. Coding Level of Care Code Acute Code for g Fwd Diagnoses Suicidal ideation R45.851 Chronic migraine without aura, intractable, with status migrainosus G43.711 Itching of ear L29.9 Trauma of ear canal S09.91XA Left shoulder pain M25.512 Seizure R56.9 Demyelinating disease of central nervous system G37.9 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 Major depressive disorder, recurrent severe without psychotic features F33.2 Methamphetamine use disorder, severe, dependence F15.20 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
--- NOTE | 2023-11-02 14:32 | XRR_ITS ---
PROCEDURE INFORMATION: Exam: XR Abdomen Exam date and time: 11/02/2023 5:09 PM Age: 58 years old Clinical indication: Prior surgery; Surgery date: 6+ months; Surgery type: Hysterectomy; Patient HX: Constipation; Abdominal distention TECHNIQUE: Imaging protocol: Radiologic exam of the abdomen. Views: Frontal supine view of the abdomen. 1 View. COMPARISON: CT abdomen pelvis w con* [id number] 05/13/2022 5:57 PM FINDINGS: Gastrointestinal tract: Nonspecific bowel-gas pattern without evidence of large or small bowel obstruction. Apparent [id number] retained colonic stool. Bones/joints: Unremarkable. XR/XR KUB portable [id number] IMPRESSION: No plain film evidence of acute intra-abdominal or pelvic process.
--- NOTE | 2023-11-02 14:33 | PC.NURSE ---
PT CONTINUES TO DENY BOWEL MOVEMENT. THIS NURSE NOTIFIED PHYSICIAN. ORDERS FOR A KUB HAS BEEN PLACED TO DETERMINE IF PT IS CONSTIPATED OR IF PT IS NOT CONSUMING ENOUGH FOR A BOWEL MOVEMENT.
[2023-11-02] MEDS: propranolol 20 mg Tablet PO (17:48)
[2023-11-02 20:15] VITALS: BP 93/60; PULSE 75; RESP 17; O2SAT 97
[2023-11-02] MEDS: benztropine 1 mg Tablet PO (21:17)
[2023-11-02] MEDS: trazodone 50 mg Tablet PO (21:17)
[2023-11-02] MEDS: tizanidine 4 mg Tablet 2 MG PO (21:17)
[2023-11-02] MEDS: lithium carbonate ER 300 mg Tablet 600 MG PO (21:17)
[2023-11-02 21:20] LABS: Glucose Point of Care 209 mg/dL (70-110)
[2023-11-03 01:35] VITALS: PULSE 68; RESP 18; O2SAT 98
[2023-11-03] MEDS: albuterol 2.5 mg/3 mL Neb INHALATION (01:35)
[2023-11-03 01:43] VITALS: PULSE 65
[2023-11-03 06:00] VITALS: BP 95/60; PULSE 67; RESP 16; O2SAT 98
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
[2023-11-03 07:33] VITALS: BP 95/60; PULSE 67; RESP 16; O2SAT 98
[2023-11-03 07:36] LABS: Glucose Point of Care 124 mg/dL (70-110)
[2023-11-03] MEDS: fenofibrate 145 mg Tablet PO (07:58)
[2023-11-03] MEDS: pantoprazole DR 40 mg Tablet PO (07:59)
[2023-11-03] MEDS: sertraline 100 mg Tablet 150 MG PO (07:59)
[2023-11-03] MEDS: zonisamide 100 MG Capsule PO (07:59)
--- NOTE | 2023-11-03 08:33 | DCPLANNER ---
Imm was given to pt and rights explained and copy placed in pts file.
[2023-11-03 09:19] VITALS: PULSE 85; RESP 18; O2SAT 97
== END 2023-11-03 11:40 | disposition home or self-care (01) | DRG 918 ==
LOC: ER 10:51 → NP 14:35
PROVIDERS: Internal Medicine; Admitting Provider Psychiatry & Neurology Psychiatry; Emergency Provider Family Medicine; PCP Nurse Practitioner; Visit Provider Psychiatry & Neurology Psychiatry
DX: T54.92XA Toxic effect of unspecified corrosive substance, intentional self-harm, initial encounter (principal); R45.851 Suicidal ideations; F15.23 Other stimulant dependence with withdrawal; F15.259 Other stimulant dependence with stimulant-induced psychotic disorder, unspecified; F33.2 Major depressive disorder, recurrent severe without psychotic features; Y99.9 Unspecified external cause status; K21.9 Gastro-esophageal reflux disease without esophagitis; M79.7 Fibromyalgia; F12.20 Cannabis dependence, uncomplicated; F17.210 Nicotine dependence, cigarettes, uncomplicated; K86.9 Disease of pancreas, unspecified; E08.9 Diabetes mellitus due to underlying condition without complications; Z79.84 Long term (current) use of oral hypoglycemic drugs; F25.1 Schizoaffective disorder, depressive type
CPT/HCPCS: 36415; 36416; 71045; 74018; 80053; 80306; 80307; 81001; 82962; 83036; 84443; 85025; 92610; 94640; 94664; 96372; 97116; 97150; 97161; 97165; 99285; C9113; J1200; J7613; L3908; Q0162

== ENCOUNTER 2024-01-21 15:16 | Emergency (ER) | payer MEDICARE, MEDICAID, SELFPAY ==
[2023-11-10 09:51] VITALS: BP 157/89; BMI 32.2
[2024-01-21 15:18] VITALS: BP 130/73; PULSE 92; RESP 20; TEMP 36.2; O2SAT 96; BMI 19.5
--- NOTE | 2024-01-21 15:18 | ECG_ITS ---
[facility] Test Date: 2024-01-21 Pat Name: Brenna Amor Department: Room: Gender: Female Med Specialist: : 1965 Requested By: Ada Storm Order Number: [id number] Sydnee MD: BEV ALMANZA Measurements Intervals [place] Rate: 99 P: 80 CO: 126 QRS: 79 QRSD: 82 T: 60 QT: 355 QTc: 457 Interpretive Statements SINUS RHYTHM Compared to ECG 11/08/2017 13:37:45 Ectopic atrial rhythm no longer present Atrial abnormality no longer present Electronically Signed On 01-21-2024 20:04:30 CDT by BEV ALMANZA [email or web address]
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
--- NOTE | 2024-01-21 16:03 | XR_ITS ---
WS: [id number] XR chest 1V portable [id number] REASON FOR EXAM: Psychiatric workup FINDINGS: The chest is unchanged compared to 10/29/2023. The heart and mediastinum are within normal limits. Calcified granulomas disease in both hemithoraces. No focal lung lesion. No acute pulmonary parenchymal or pleural abnormality. Bony thorax is unremarkable. XR/XR chest 1V portable [id number] IMPRESSION: Stable chest without acute abnormality.
[2024-01-21 16:07] LABS: Basophils # 0.1 10^3/uL (0.0-0.1); Basophils % 0.9 %; Eosinophils # 0.7 10^3/uL (0.0-0.8); Eosinophils % 6.4 %; Hematocrit 42.7 % (36-47); Lymphocytes # 4.2 10^3/uL (0.8-4.8); Lymphocytes % 36.6 %; Mean Corpuscular HGB Conc 31.9 g/dL (30-55); Mean Corpuscular Hemoglobin 30.3 pg (27-33); Mean Corpuscular Volume 95.1 fl (85-98); Mean Platelet Volume 10.8 fL (7.4-10.4); Monocytes # 0.7 10^3/uL (0.2-0.9); Monocytes % 6.3 %; Neutrophils # 5.63 10^3/uL (1.8-7.7); Neutrophils % 49.5 %; Nucleated Red Blood Cells % 0 %; Platelet Count 299 10^3/cmm (157-399); Red Blood Count 4.49 10^6/uL (3.85-5.65); Red Cell Distribution Width 13.3 % (12.1-15.1); White Blood Count 11.35 10^3/uL (3.29-11.43)
[2024-01-21 16:45] LABS: Alanine Aminotransferase 9 U/L (0-33); Albumin Level 4.1 g/dL (3.5-5.2); Alkaline Phosphatase 98 U/L (35-105); Anion Gap 11.1 (5-19); Aspartate Amino Transferase 14 U/L (0-32); Blood Urea Nitrogen 17 mg/dL (6-20); Calcium 9.8 mg/dL (8.5-10.5); Carbon Dioxide 28 mmol/L (22-29); Chloride 106 mmol/L (98-107); Creatinine Clr Calc Pharmacy 87.9839; Globulin 2.7 g/dL (1.3-4.6); Glomerular Filtration Rate 126.7 mL/min (90-130); Glucose 88 mg/dL (65-115); Osmolality Calculated 293 mOsm/kg (285-295); Potassium 4.1 mmol/L (3.5-5.1); Sodium 141 mmol/L (136-145); Thyroid Stimulating Hormone 0.54 uIU/mL (0.27-4.20); Total Bilirubin 0.3 mg/dL (0.15-1.2); Total Protein 6.8 g/dL (6.6-8.7)
[2024-01-21 16:50] LABS: Acetaminophen < 5.0 ug/mL (10-30); Alcohol Level < 10 mg/dL (0-10); Salicylate < 0.3 mg/dL (3-10)
--- NOTE | 2024-01-21 17:16 | PC.NURSE ---
ATTEMPTED TO CONTACT PATIENTS PER PATIENT REQUEST, CALL WAS UNABLE TO BE COMPLETED. CHARGE NURSE NOTIFIED.
[2024-01-21 18:49] LABS: Bilirubin Urine Negative (Negative); Blood Urine Negative (Negative); Glucose Urine UA Negative (Normal); Ketones Urine Negative (Negative); Leukocyte Esterase Urine 1+ (Negative); Nitrate Urine Positive (Negative); Protein Urine Negative (Negative); Specific Gravity, Urine 1.022 (1.005-1.030); Urine Appearance Clear (CLEAR); Urine Color Yellow (Yellow); pH Urine 5.5 (5-7)
[2024-01-21 18:51] LABS: Bacteria Urine 4+ /hpf; Hyaline Casts Urine 0.81 /lpf; RBC Urine 0-2 /hpf (0-2); Squamous Epithelial Cell Urine 0-5 /hpf (0-5)
[2024-01-21 18:56] LABS: Amphetamines Screen Urine Positive (Negative); Barbiturates Screen Urine Negative (Negative); Benzodiazepines Screen Urine Negative (Negative); Cocaine Screen Urine Negative (Negative); Opiate Screen Urine Negative (Negative); PCP Screen Urine Negative (Negative); THC Screen Urine Negative (Negative)
[2024-01-21 18:57] LABS: Add Urine Culture? Yes
[2024-01-21 19:03] LABS: SARS Covid-2 Antigen negative (Negative)
[2024-01-21] MEDS: cephALEXin 500 mg Capsule PO (19:28)
[2024-01-21] MEDS: LORazepam 2 mg/mL INJ 1 mL IM (19:52)
[2024-01-21 20:00] VITALS: PULSE 86; RESP 18; O2SAT 92
[2024-01-21 23:16] VITALS: BP 128/74; PULSE 82; RESP 20; O2SAT 94
--- NOTE | 2024-01-21 23:21 | PC.NURSE ---
Pt requested a drink and another blanket. RN brought pt a dr pepper and a blanket.
[2024-01-22] VITALS: PULSE 68; RESP 16; O2SAT 96
[2024-01-22 04:00] VITALS: BP 134/72; RESP 18; O2SAT 92
[2024-01-22 09:48] VITALS: BP 150/84; PULSE 72; RESP 18; O2SAT 92
== END 2024-01-22 09:50 ==
PROVIDERS: Emergency Medicine; Emergency Provider Emergency Medicine; PCP Nurse Practitioner
DX: R45.851 Suicidal ideations (principal); F32.A Depression, unspecified; N39.0 Urinary tract infection, site not specified; Z11.52 Encounter for screening for COVID-19; F17.210 Nicotine dependence, cigarettes, uncomplicated; F17.290 Nicotine dependence, other tobacco product, uncomplicated; E11.9 Type 2 diabetes mellitus without complications; J44.9 Chronic obstructive pulmonary disease, unspecified
CPT/HCPCS: 0241U; 36415; 71045; 80053; 80306; 80307; 81001; 84443; 85025; 87077; 87086; 87186; 87426; 93005; 96372; 99285; J2060

== ENCOUNTER 2024-03-12 23:01 | Emergency (ER) | payer MEDICARE, MEDICAID, SELFPAY ==
[2023-11-10 09:51] VITALS: BP 157/89; BMI 32.2
[2024-03-12 23:04] VITALS: BP 137/78; PULSE 85; RESP 22; TEMP 36.8; O2SAT 95; BMI 19.5
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
[2024-03-12 23:40] LABS: Basophils # 0.1 10^3/uL (0.0-0.1); Basophils % 0.8 %; Eosinophils # 0.6 10^3/uL (0.0-0.8); Hematocrit 40.5 % (36-47); Lymphocytes # 2.7 10^3/uL (0.8-4.8); Lymphocytes % 18.2 %; Mean Corpuscular HGB Conc 32.3 g/dL (30-55); Mean Corpuscular Hemoglobin 30.6 pg (27-33); Mean Corpuscular Volume 94.6 fl (85-98); Mean Platelet Volume 9.9 fL (7.4-10.4); Monocytes # 0.7 10^3/uL (0.2-0.9); Monocytes % 4.9 %; Neutrophils # 10.65 10^3/uL (1.8-7.7); Neutrophils % 71.8 %; Nucleated Red Blood Cells % 0 %; Platelet Count 281 10^3/cmm (157-399); Red Blood Count 4.28 10^6/uL (3.85-5.65); Red Cell Distribution Width 13.2 % (12.1-15.1); White Blood Count 14.82 10^3/uL (3.29-11.43)
[2024-03-12 23:56] LABS: Alanine Aminotransferase 11 U/L (0-33); Albumin Level 3.9 g/dL (3.5-5.2); Alkaline Phosphatase 97 U/L (35-105); Anion Gap 11.6 (5-19); Aspartate Amino Transferase 15 U/L (0-32); Blood Urea Nitrogen 18 mg/dL (6-20); Calcium 9.8 mg/dL (8.5-10.5); Carbon Dioxide 29 mmol/L (22-29); Chloride 105 mmol/L (98-107); Creatinine Clr Calc Pharmacy 87.9839; Globulin 2.4 g/dL (1.3-4.6); Glomerular Filtration Rate 126.7 mL/min (90-130); Glucose 161 mg/dL (65-115); Osmolality Calculated 299 mOsm/kg (285-295); Potassium 3.6 mmol/L (3.5-5.1); Sodium 142 mmol/L (136-145); Total Bilirubin 0.3 mg/dL (0.15-1.2); Total Protein 6.3 g/dL (6.6-8.7)
[2024-03-12 23:57] LABS: Acetaminophen < 5.0 ug/mL (10-30); Alcohol Level < 10 mg/dL (0-10); Salicylate < 0.3 mg/dL (3-10)
--- NOTE | 2024-03-13 06:23 | PC.NURSE ---
contacted family for ride. no answer. voicemail left. pt resting comfortably in room with eyes closed.
[2024-03-13 11:31] VITALS: BP 141/82; PULSE 82; O2SAT 95
== END 2024-03-13 11:32 | disposition home or self-care (01) ==
PROVIDERS: Emergency Provider Physician Assistant; PCP Nurse Practitioner
DX: G24.01 Drug induced subacute dyskinesia (principal); F15.20 Other stimulant dependence, uncomplicated; F17.210 Nicotine dependence, cigarettes, uncomplicated; E11.9 Type 2 diabetes mellitus without complications; J44.9 Chronic obstructive pulmonary disease, unspecified
CPT/HCPCS: 36415; 70450; 80053; 80307; 85025; 99284

== ENCOUNTER 2024-03-14 18:01 | Emergency (ER) | payer MEDICARE, MEDICAID, SELFPAY ==
[2023-11-10 09:51] VITALS: BP 157/89; BMI 32.2
[2024-03-14 18:11] VITALS: BP 127/62; PULSE 87; RESP 18; TEMP 36.4; O2SAT 97
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
[2024-03-14] MEDS: OLANZapine 10 mg ODT 20 MG PO (18:31)
[2024-03-14 18:39] LABS: Basophils # 0.1 10^3/uL (0.0-0.1); Basophils % 0.7 %; Eosinophils # 0.9 10^3/uL (0.0-0.8); Eosinophils % 5.5 %; Hematocrit 40.6 % (36-47); Lymphocytes # 3.4 10^3/uL (0.8-4.8); Lymphocytes % 20.2 %; Mean Corpuscular Hemoglobin 30.1 pg (27-33); Mean Platelet Volume 10.3 fL (7.4-10.4); Monocytes # 1.2 10^3/uL (0.2-0.9); Monocytes % 7.2 %; Neutrophils # 11.17 10^3/uL (1.8-7.7); Nucleated Red Blood Cells % 0 %; Platelet Count 276 10^3/cmm (157-399); Red Blood Count 4.32 10^6/uL (3.85-5.65); Red Cell Distribution Width 13.1 % (12.1-15.1); White Blood Count 16.92 10^3/uL (3.29-11.43)
[2024-03-14 18:56] LABS: Alanine Aminotransferase 11 U/L (0-33); Albumin Level 3.7 g/dL (3.5-5.2); Alkaline Phosphatase 99 U/L (35-105); Anion Gap 10.5 (5-19); Aspartate Amino Transferase 14 U/L (0-32); Blood Urea Nitrogen 13 mg/dL (6-20); Calcium 9.4 mg/dL (8.5-10.5); Carbon Dioxide 27 mmol/L (22-29); Chloride 100 mmol/L (98-107); Globulin 2.9 g/dL (1.3-4.6); Glomerular Filtration Rate 126.7 mL/min (90-130); Glucose 122 mg/dL (65-115); Osmolality Calculated 279 mOsm/kg (285-295); Potassium 3.5 mmol/L (3.5-5.1); Sodium 134 mmol/L (136-145); Total Bilirubin 0.3 mg/dL (0.15-1.2); Total Protein 6.6 g/dL (6.6-8.7)
[2024-03-14 18:57] LABS: Acetaminophen < 5.0 ug/mL (10-30); Alcohol Level < 10 mg/dL (0-10); Salicylate < 0.3 mg/dL (3-10)
[2024-03-14 19:45] LABS: Bilirubin Urine Negative (Negative); Blood Urine Negative (Negative); Glucose Urine UA Negative (Normal); Ketones Urine Negative (Negative); Leukocyte Esterase Urine 1+ (Negative); Nitrate Urine Positive (Negative); Protein Urine Trace (Negative); Specific Gravity, Urine 1.028 (1.005-1.030); Urine Appearance Clear (CLEAR); Urine Color Yellow (Yellow); pH Urine 5.5 (5-7)
[2024-03-14 19:50] LABS: Add Urine Microscopic? YES; Bacteria Urine 4+ /hpf; Hyaline Casts Urine 0-4 /lpf; RBC Urine 0-2 /hpf (0-2); WBC Urine 51-100 /hpf (0-5)
[2024-03-14 19:53] LABS: Amphetamines Screen Urine Positive (Negative); Barbiturates Screen Urine Negative (Negative); Benzodiazepines Screen Urine Positive (Negative); Cocaine Screen Urine Negative (Negative); Opiate Screen Urine Negative (Negative); PCP Screen Urine Negative (Negative); THC Screen Urine Negative (Negative)
[2024-03-14] MEDS: LORazepam 2 mg/mL INJ 1 mL IM (20:22)
[2024-03-14 22:15] VITALS: BP 132/65; PULSE 81; RESP 16; O2SAT 97
--- NOTE | 2024-03-15 00:30 | PC.NURSE ---
pt resting comfortably with eyes closed. respirations even and non labored. no distress noted. no needs identified. bed rails up. bed low/locked. sitter in place. will continue to monitor.
[2024-03-15 09:25] VITALS: BP 132/64; PULSE 18; O2SAT 98
== END 2024-03-15 09:27 | disposition home or self-care (01) ==
PROVIDERS: Emergency Provider Emergency Medicine; PCP Nurse Practitioner
DX: F15.229 Other stimulant dependence with intoxication, unspecified (principal); F17.210 Nicotine dependence, cigarettes, uncomplicated; E11.9 Type 2 diabetes mellitus without complications; J44.9 Chronic obstructive pulmonary disease, unspecified
CPT/HCPCS: 80053; 80306; 80307; 81001; 85025; 96372; 99284; J2060

== ENCOUNTER 2024-03-30 12:31 | Inpatient (IN) | payer MEDICARE, MEDICAID, SELFPAY ==
[2024-03-30 08:21] VITALS: BP 157/89; BMI 32.2
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
[2024-03-30 12:47] VITALS: BMI 19.5
--- NOTE | 2024-03-30 12:58 | PC.NURSE ---
PATIENT BELONGINGS INVENTORY WITH [employer], CLOTHING AND SHOES ONLY.
[2024-03-30 13:04] VITALS: BP 117/58; PULSE 90; RESP 24; TEMP 36.8; O2SAT 95
[2024-03-30] MEDS: LORazepam 2 mg/mL INJ 1 mL IM (13:04)
[2024-03-30 13:12] LABS: Basophils # 0.1 10^3/uL (0.0-0.1); Basophils % 1.2 %; Eosinophils # 0.6 10^3/uL (0.0-0.8); Hematocrit 38.8 % (36-47); Lymphocytes # 2.8 10^3/uL (0.8-4.8); Lymphocytes % 27.5 %; Mean Corpuscular HGB Conc 31.7 g/dL (30-55); Mean Corpuscular Volume 94.6 fl (85-98); Monocytes # 0.7 10^3/uL (0.2-0.9); Monocytes % 6.6 %; Neutrophils # 5.87 10^3/uL (1.8-7.7); Neutrophils % 58.5 %; Nucleated Red Blood Cells % 0 %; Platelet Count 361 10^3/cmm (157-399); Red Cell Distribution Width 13.8 % (12.1-15.1); White Blood Count 10.03 10^3/uL (3.29-11.43)
--- NOTE | 2024-03-30 13:14 | PC.NURSE ---
96 hr rights reviewed with patient @[address] [facility] commissary officer Ashok. All education reviewed. No verbalized questions at this time to HS. Patient copy left with patient. Water provided, and patient dressed out in green scrubs. Belongings collected and inventoried by ER staff and Security.
[2024-03-30 13:33] LABS: Acetaminophen < 5.0 ug/mL (10-30); Alanine Aminotransferase 10 U/L (0-33); Alcohol Level < 10 mg/dL (0-10); Alkaline Phosphatase 106 U/L (35-105); Anion Gap 14.3 (5-19); Aspartate Amino Transferase 14 U/L (0-32); Blood Urea Nitrogen 19 mg/dL (6-20); Calcium 9.7 mg/dL (8.5-10.5); Carbon Dioxide 26 mmol/L (22-29); Chloride 108 mmol/L (98-107); Creatinine Clr Calc Pharmacy 73.3199; Globulin 2.4 g/dL (1.3-4.6); Glomerular Filtration Rate 102.7 mL/min (90-130); Glucose 102 mg/dL (65-115); Osmolality Calculated 300 mOsm/kg (285-295); Potassium 4.3 mmol/L (3.5-5.1); Salicylate < 0.3 mg/dL (3-10); Sodium 144 mmol/L (136-145); Total Bilirubin 0.5 mg/dL (0.15-1.2); Total Protein 6.4 g/dL (6.6-8.7)
[2024-03-30 14:27] LABS: Amphetamines Screen Urine Positive (Negative); Barbiturates Screen Urine Negative (Negative); Benzodiazepines Screen Urine Negative (Negative); Cocaine Screen Urine Negative (Negative); Opiate Screen Urine Negative (Negative); PCP Screen Urine Negative (Negative); THC Screen Urine Negative (Negative)
[2024-03-30 14:44] VITALS: BP 118/57; PULSE 78; RESP 16; TEMP 36.6; O2SAT 96
[2024-03-30 14:49] VITALS: BP 117/66; PULSE 80; O2SAT 95
[2024-03-30] MEDS: ziprasidone hcl 20 mg Capsule PO (20:24)
[2024-03-30] MEDS: acetaminophen 325 mg Tablet 650 MG PO (20:52)
[2024-03-30 22:00] VITALS: BP 138/75; PULSE 75; RESP 16; O2SAT 96
[2024-03-31 05:42] VITALS: BP 103/55; PULSE 85; RESP 17; TEMP 36.6; O2SAT 97
[2024-03-31] MEDS: ziprasidone hcl 20 mg Capsule PO ×2 (08:24→17:55)
[2024-03-31] MEDS: sertraline 50 mg Tablet PO (08:24)
[2024-03-31 09:19] VITALS: PULSE 89; RESP 16; O2SAT 98
[2024-03-31] MEDS: ipratropium-albuterol 3 mL Neb INHALATION ×2 (09:19→16:08)
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
[2024-03-31 14:00] VITALS: BP 106/82; PULSE 80; RESP 16; O2SAT 98
[2024-03-31] MEDS: OLANZapine 5 mg ODT PO (15:48)
[2024-03-31 16:08] VITALS: PULSE 87; RESP 18; O2SAT 97
[2024-03-31 20:44] VITALS: BP 117/62; PULSE 68; RESP 15; O2SAT 96
[2024-04-01 04:19] VITALS: BP 124/73; PULSE 108; RESP 17; TEMP 36.9; O2SAT 96
[2024-04-01] MEDS: sertraline 50 mg Tablet 100 MG PO (07:43)
[2024-04-01] MEDS: hyDROXYzine 25 mg Capsule 50 MG PO (07:43)
[2024-04-01] MEDS: acetaminophen 325 mg Tablet 650 MG PO (07:44)
[2024-04-01] MEDS: ziprasidone hcl 20 mg Capsule PO (07:44)
[2024-04-01] MEDS: OLANZapine 5 mg ODT PO (08:59)
--- NOTE | 2024-04-01 12:31 | PC.NURSE ---
NEW ORDERS RECEIVED DBY DR. CASTELLANO TO PLACE ORDERS FOR OT TO COMPLETE [facility] TESTING FOR PT TO EVALUATED IF PT IS ABLE TO DO ADLS AND CARE FOR SELF WHEN DISCHARGED. EDUCATION PROVIDED TO PT. SUPPORT VOICED.
[2024-04-01 14:00] VITALS: BP 131/79; PULSE 105; RESP 16; TEMP 36.9; O2SAT 94
--- NOTE | 2024-04-01 14:52 | W.PM.NPUPNS ---
Subjective NPU Subjective: 58-year-old female with a history of psychosis, depression, and methamphetamine use admitted with suicidal ideation. The patient continued to report that no one was helping her. She had continued to lament that she needed help to get out of her situation. She had continued to report that her methamphetamine use was not a problem. She had remained ambivalent about wanting to receive help. Patient was continuing to report feeling horrible and continued to have episodes of intense crying outbursts on the unit. She had reported no side effects from her current medication regimen. She continued to show evidence of poor ability to manage her self-care requiring prompting for completion of activities of daily living. Mental Status Exam MSE Comments: This is an underweight versus cachectic white female in hospital scrubs on with limited grooming and eye contact. Poor/absent dentition looking much older than her stated age. No abnormal movements except for significant psychomotor agitation consistent with tweaking from methamphetamine use with signficant choreoform movements of arms. She was minimally cooperative with exam in moderate distress. Speech was mostly normal in rate with decreased volume was significant slurring of speech and dysarthric. Mood described as terrible. Afffect was mood congruent and dysphoric. Thought process was linear and organized. Thought content: Patient endorsed suicidal ideation with no homicidal ideation. She endorsed there were no delusions appreciated. She denies any auditory or visual hallucinations and did not appear to be responding to internal stimuli. The patient appears to be under significant stress and possibly fear due to her living situation. Attention and concentration appear poor. Her recent and remote memory were poor. Alert and oriented x person place and time. Insight, judgment and impulse control are impaired Vitals/I&O/Wt Last Vital Signs Temp 98.4 F 04/01/24 14:00 Pulse 105 H 04/01/24 14:00 Resp 16 04/01/24 14:00 BP 131/79 04/01/24 14:00 Pulse Ox 94 04/01/24 14:00 O2 Del Method Room Air 04/01/24 14:00 Data NPU 03/30/24 13:06 03/30/24 13:06 A&P Assessment and plan (1) Suicidal ideation: (2) Schizoaffective disorder, depressive type: (3) Chronic migraine without aura, intractable, with status migrainosus: (4) Seizure: (5) Demyelinating disease of central nervous system: (6) Cannabis dependence, uncomplicated: (7) Major depressive disorder, recurrent severe without psychotic features: (8) Methamphetamine use disorder, severe, dependence: (9) Drug-induced psychotic disorder: (10) Withdrawal from methamphetamine: Plan This is a 58 year old female with a history of schizoafffective disorder, methamphetamine dependence who is admitted for recent suicidal ideation with active methamphetamine use. 1.? Continued/restarted current medication with increase in zoloft to 100mg daily. D/C Geodon (no benefit, noncompliance) Trial of seroquel target mood instability. Add high dose Vitamin B6 for dyskinesia. 2.? Continue every 15 minute checks for safety. 3.? Encourage individual, group and milieu therapies. 4.? Encourage sober living treatment after discharge at the highest level of care to which she is willing to commit. 5. Patient continues to have ambivalence about what is needed to ensure sobriety. Involuntary Hold Information 96 Hour Hold: 96 Hour Involuntary Admission: Yes 96 Hour Hold Ending Date: 04/05/24 96 Hour Hold Ending Time: 12:30 Attestations NPU Medical Necessity Statement*: Inpatient hospitalization is medically necessary and the clinically appropriate intervention at this time. We will evaluate for medication changes and safety for discharge. The patient's likely length of stay is 3-5 days. Coding Level of Care Code Acute Code for [facility] Diagnoses Suicidal ideation R45.851 Schizoaffective disorder, depressive type F25.1 Chronic migraine without aura, intractable, with status migrainosus G43.711 Seizure R56.9 Demyelinating disease of central nervous system G37.9 Cannabis dependence, uncomplicated F12.20 Major depressive disorder, recurrent severe without psychotic features F33.2 Methamphetamine use disorder, severe, dependence F15.20 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
--- NOTE | 2024-04-01 15:28 | PC.OT ---
OT EVALUATION ORDER RECEIVED FOR [facility]. PATIENT SLEEPING SOUNDLY AND NURSING REQUEST THAT I LET THE PATIENT SLEEP.
[2024-04-01] MEDS: pyridoxine 50 mg Tablet 200 MG PO (16:27)
[2024-04-01 20:16] VITALS: BP 111/64; PULSE 94; RESP 16; O2SAT 97
[2024-04-02 06:00] VITALS: BP 136/72; PULSE 76; RESP 15; O2SAT 94
[2024-04-02] MEDS: acetaminophen 325 mg Tablet 650 MG PO (08:13)
[2024-04-02] MEDS: sertraline 50 mg Tablet 100 MG PO (08:13)
[2024-04-02] MEDS: pyridoxine 50 mg Tablet 200 MG PO (11:05)
[2024-04-02 13:25] VITALS: PULSE 109; RESP 18; O2SAT 96
[2024-04-02 14:00] VITALS: BP 113/80; PULSE 97; RESP 16; TEMP 36.8; O2SAT 98
[2024-04-02] MEDS: hyDROXYzine 25 mg Capsule 50 MG PO (15:49)
--- NOTE | 2024-04-02 16:55 | W.PM.NPUPNS ---
Subjective NPU Subjective: 58-year-old female with a history of psychosis, depression, and methamphetamine use admitted with suicidal ideation. Patient continued to have episodes of intense mood swings. She had periods of intense crying. She had reported that she continued to struggle with making good decisions. She had continued to blame others for her problems and continue to minimize the effects that methamphetamine was having on her ability to make good decisions. She had reported at times being distracted by her thoughts and continued to struggle with sleep. The patient had required some significant redirection. Patient had required some assurance as she had felt like she was going to long-term after she had completed an evaluation from her occupational therapist. Mental Status Exam MSE Comments: This is an underweight versus cachectic white female in hospital scrubs on with limited grooming and eye contact. Poor/absent dentition looking much older than her stated age. No abnormal movements except for significant psychomotor agitation consistent with tweaking from methamphetamine use with signficant choreoform movements of arms. She was cooperative with exam in moderate distress. Speech was mostly normal in rate with variable volume was significant slurring of speech and dysarthric. Mood described as okay. Afffect was dysphoric and bizarre. Thought process was linear with some continued perseveration. Thought content: Patient endorsed suicidal ideation with no homicidal ideation. There were no delusions appreciated. She denies any auditory or visual hallucinations and did not appear to be responding to internal stimuli. The patient appears to be under significant stress and possibly fear due to her living situation. Attention and concentration appear poor. Her recent and remote memory were poor. Alert and oriented x person place and time. Insight, judgment and impulse control are impaired. Vitals/I&O/Wt Last Vital Signs Temp 98.3 F 04/02/24 14:00 Pulse 97 04/02/24 14:00 Resp 16 04/02/24 14:00 BP 113/80 04/02/24 14:00 Pulse Ox 98 04/02/24 14:00 O2 Del Method Room Air 04/02/24 14:00 Data NPU 03/30/24 13:06 03/30/24 13:06 A&P Assessment and plan (1) Schizoaffective disorder, depressive type: (2) Suicidal ideation: (3) Chronic migraine without aura, intractable, with status migrainosus: (4) Seizure: (5) Demyelinating disease of central nervous system: (6) Cannabis dependence, uncomplicated: (7) Major depressive disorder, recurrent severe without psychotic features: (8) Methamphetamine use disorder, severe, dependence: (9) Drug-induced psychotic disorder: (10) Withdrawal from methamphetamine: Plan This is a 58 year old female with a history of schizoafffective disorder, methamphetamine dependence who is admitted for recent suicidal ideation with active methamphetamine use. 1.? Continued/restarted current medication with continue in zoloft to 100mg daily. Continue Vitamin B6 200mg daily with increase to 300mg daily. Add latuda 20mg at 6 PM. 2.? Continue every 15 minute checks for safety. 3.? Encourage individual, group and milieu therapies. 4.? Encourage sober living treatment after discharge at the highest level of care to which she is willing to commit. 5. Patient continues to have ambivalence about what is needed to ensure sobriety. Involuntary Hold Information 96 Hour Hold: 96 Hour Involuntary Admission: Yes 96 Hour Hold Ending Date: 04/05/24 96 Hour Hold Ending Time: 12:30 Attestations NPU Medical Necessity Statement*: Inpatient hospitalization is medically necessary and the clinically appropriate intervention at this time. We will evaluate for medication changes and safety for discharge. The patient's likely length of stay is 3-5 days. Coding Level of Care Code Acute Code for [facility] Diagnoses Schizoaffective disorder, depressive type F25.1 Suicidal ideation R45.851 Chronic migraine without aura, intractable, with status migrainosus G43.711 Seizure R56.9 Demyelinating disease of central nervous system G37.9 Cannabis dependence, uncomplicated F12.20 Major depressive disorder, recurrent severe without psychotic features F33.2 Methamphetamine use disorder, severe, dependence F15.20 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
--- NOTE | 2024-04-02 17:57 | PC.NURSE ---
PRN Given Patient crying and yelling after several phone calls with . Patient states that she knows she failed the test and they are going to have her locked up and she will have to get rid of her babies . Tried to reassure patient that we have no results and no decisions about discharge have been made. Encouraged patient to lie down and rest for a while and try to calm down. Vistaril was given - see MAR. At this time, patient appears more calm and has not been tearful in over an hour.
[2024-04-02] MEDS: lurasidone 20 mg Tablet PO (18:12)
[2024-04-02 21:51] VITALS: BP 119/72; PULSE 78; RESP 16; TEMP 36.8; O2SAT 95
[2024-04-03 06:00] VITALS: BP 111/76; PULSE 99; RESP 17; TEMP 36.6; O2SAT 94
[2024-04-03] MEDS: sertraline 50 mg Tablet 100 MG PO (08:23)
[2024-04-03] MEDS: pyridoxine 50 mg Tablet 200 MG PO (08:23)
[2024-04-03] MEDS: ondansetron 4 MG Tablet PO (09:26)
--- NOTE | 2024-04-03 13:06 | P.NPUPN_ITS ---
Subjective NPU 2 Subjective: 58-year-old female with a history of psy chosis, depression, and methamphetamine use admitted with suicidal ideation. The patient continue to minimize the effect of chronic methamphetamine abuse. She reported that she was feeling better. She continued to have episodes of intense mood lability and continued to complain of poor frustration tolerance. Patient had reported that she would be going back to her previous living situation. Patient had reported that she did not like to put anything in her body while stating her aversion to taking medications. Mental Status Exam 2 MSE Comments: This is an underweight versus cachectic white female in hospital scrubs on with limited grooming and eye contact. Poor/absent dentition looking much older than her stated age. No abnormal movements except for significant psychomotor agitation consistent with less choreoform movements of arms appreciated. She was cooperative with exam in moderate distress. Speech was mostly normal in rate with variable volume was significant slurring of speech and dysarthric. Mood described as okay. Afffect was dysphoric. Thought process was linear with some continued perseveration. Thought content: Patient endorsed suicidal ideation with no homicidal ideation. There were no delusions appreciated. She denies any auditory or visual hallucinations and did not appear to be responding to internal stimuli. The patient appears to be under significant stress and possibly fear due to her living situation. Attention and concentration appear poor. Her recent and remote memory were poor. Alert and oriented x person place and time. Insight was feeble. Judgment remained limited. Impulse control is impaired. Vitals/I&O/Wt Last Vital Signs Temp 97.8 F 04/03/24 06:00 Pulse 99 04/03/24 06:00 Resp 17 04/03/24 06:00 BP 111/76 04/03/24 06:00 Pulse Ox 94 04/03/24 06:00 O2 Del Method Room Air 04/03/24 06:00 Data NPU 03/30/24 13:06 03/30/24 13:06 A&P Assessment and plan (1) Schizoaffective disorder, depressive type: (2) Suicidal ideation: (3) Chronic migraine without aura, intractable, with status migrainosus: (4) Seizure: (5) Demyelinating disease of central nervous system: (6) Cannabis dependence, uncomplicated: (7) Major depressive disorder, recurrent severe without psychotic features: (8) Methamphetamine use disorder, severe, dependence: (9) Drug-induced psychotic disorder: (10) Withdrawal from methamphetamine: Plan This is a 58 year old female with a history of schizoafffective disorder, methamphetamine dependence who is admitted for recent suicidal ideation with active methamphetamine use. 1.? Continued/restarted current medication with continue in zoloft to 100mg daily. Continue Vitamin B6 200mg daily with increase to 300mg daily. Increase latuda to 40mg at 6 PM. 2.? Continue every 15 minute checks for safety. 3.? Encourage individual, group and milieu therapies. 4.? Encourage sober living treatment after discharge at the highest level of care to which she is willing to commit. 5. Patient continues to have ambivalence about what is needed to ensure sobriety. Involuntary Hold Information 2 96 Hour Hold: 96 Hour Involuntary Admission: Yes 96 Hour Hold Ending Date: 04/05/24 96 Hour Hold Ending Time: 12:30 Attestations NPU 2 Medical Necessity Statement*: Inpatient hospitalization is medically necessary and the clinically appropriate intervention at this time. We will evaluate for medication changes and safety for discharge. The patient's likely length of stay is 3-5 days. Coding Level of Care Code Acute Code for [facility] Fwd Diagnoses Schizoaffective disorder, depressive type F25.1 Suicidal ideation R45.851 Chronic migraine without aura, intractable, with status migrainosus G43.711 Seizure R56.9 Demyelinating disease of central nervous system G37.9 Cannabis dependence, uncomplicated F12.20 Major depressive disorder, recurrent severe without psychotic features F33.2 Methamphetamine use disorder, severe, dependence F15.20 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
[2024-04-03 14:00] VITALS: BP 113/78; PULSE 113; RESP 17; O2SAT 97
[2024-04-03 16:13] VITALS: PULSE 95; RESP 18; O2SAT 96
[2024-04-03] MEDS: lurasidone 20 mg Tablet 40 MG PO (17:44)
[2024-04-03] MEDS: benztropine 1 mg Tablet PO (18:33)
[2024-04-03 21:38] VITALS: BP 114/63; PULSE 93; RESP 16; TEMP 36.7; O2SAT 96
[2024-04-04 06:00] VITALS: BP 102/62; PULSE 82; RESP 16; TEMP 36.4; O2SAT 95
[2024-04-04] MEDS: sertraline 50 mg Tablet 100 MG PO (07:55)
[2024-04-04] MEDS: pyridoxine 50 mg Tablet 300 MG PO (07:56)
[2024-04-04] MEDS: OLANZapine 5 mg ODT PO (10:25)
[2024-04-04] MEDS: diazePAM 5 mg Tablet PO (12:12)
--- NOTE | 2024-04-04 12:49 | W.PM.NPUPNS ---
Subjective NPU Subjective: 58-year-old female with a history of psychosis, depression, and methamphetamine use admitted with suicidal ideation. The patient had reported that she had wanted to go home soon. She reported that she was upset and stated that she continued to feel unsupported in her home situation. She continued to have repeated episodes of tantruming requiring some as needed medications. She continued to have episodes of intense anxiety. She continued to minimize the significance of her methamphetamine use. She had expressed no desire to consider substance abuse treatment. Mental Status Exam MSE Comments: This is an underweight versus cachectic white female in hospital scrubs on with limited grooming and eye contact. Poor/absent dentition looking much older than her stated age. No abnormal movements except for significant psychomotor agitation consistent with less choreoform movements of arms appreciated. She was minimally cooperative with exam in moderate distress. Speech was mostly normal in rate with variable volume was significant slurring of speech and dysarthric. Mood described as upset. Afffect was dysphoric. Thought process was linear with some continued perseveration. Thought content: Patient endorsed suicidal ideation with no homicidal ideation. There were no delusions appreciated. She denies any auditory or visual hallucinations and did not appear to be responding to internal stimuli. The patient appears to be under significant stress and possibly fear due to her living situation. Attention and concentration appear poor. Her recent and remote memory were poor. Alert and oriented x person,place and time. Insight was feeble. Judgment remained limited. Impulse control is impaired. Vitals/I&O/Wt Last Vital Signs Temp 97.6 F 04/04/24 06:00 Pulse 82 04/04/24 06:00 Resp 16 04/04/24 06:00 BP 102/62 04/04/24 06:00 Pulse Ox 95 04/04/24 06:00 O2 Del Method Room Air 04/04/24 06:00 Weight last 48 hrs Weight 51.347 kg Data NPU 03/30/24 13:06 03/30/24 13:06 A&P Assessment and plan (1) Schizoaffective disorder, depressive type: (2) Suicidal ideation: (3) Chronic migraine without aura, intractable, with status migrainosus: (4) Seizure: (5) Demyelinating disease of central nervous system: (6) Cannabis dependence, uncomplicated: (7) Major depressive disorder, recurrent severe without psychotic features: (8) Methamphetamine use disorder, severe, dependence: (9) Drug-induced psychotic disorder: (10) Withdrawal from methamphetamine: Plan This is a 58 year old female with a history of schizoafffective disorder, methamphetamine dependence who is admitted for recent suicidal ideation with active methamphetamine use. 1.? Continued/restarted current medication with continue in zoloft to 100mg daily. Increase Vitamin B6 300mg daily. Continue latuda to 40mg at 6 PM. 2.? Continue every 15 minute checks for safety. 3.? Encourage individual, group and milieu therapies. 4.? Encourage sober living treatment after discharge at the highest level of care to which she is willing to commit. 5. Patient continues to have ambivalence about what is needed to ensure sobriety. Involuntary Hold Information 96 Hour Hold: 96 Hour Involuntary Admission: Yes 96 Hour Hold Ending Date: 04/05/24 96 Hour Hold Ending Time: 12:30 Attestations NPU Medical Necessity Statement*: Inpatient hospitalization is medically necessary and the clinically appropriate intervention at this time. We will evaluate for medication changes and safety for discharge. The patient's likely length of stay is 2-3 days. Coding Level of Care Code Acute Code for [facility] Fwd Diagnoses Schizoaffective disorder, depressive type F25.1 Suicidal ideation R45.851 Chronic migraine without aura, intractable, with status migrainosus G43.711 Seizure R56.9 Demyelinating disease of central nervous system G37.9 Cannabis dependence, uncomplicated F12.20 Major depressive disorder, recurrent severe without psychotic features F33.2 Methamphetamine use disorder, severe, dependence F15.20 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
[2024-04-04] MEDS: ondansetron 4 MG Tablet PO (13:06)
[2024-04-04 14:00] VITALS: BP 133/74; PULSE 109; RESP 18; TEMP 36.6; O2SAT 91
--- NOTE | 2024-04-04 15:09 | PC.NURSE ---
Patient vomiting and experiencing diarrhea. This nurse notified Dr. Mckeon, who gave verbal order for phenergan 25mg IM. Dr. Mckeon said to test for influenza if patient doesn't start to recover from n/v/d.
[2024-04-04] MEDS: promethazine 25 mg/mL SDV 1 mL IM (15:45)
[2024-04-04] MEDS: lurasidone 20 mg Tablet 40 MG PO (17:31)
[2024-04-04 17:38] LABS: C.Diff PCR (Lab) NEGATIVE (Negative)
[2024-04-04 18:22] LABS: Adenovirus Not Detected (NOT DETECT); Chlamydia Pneumoniae Not Detected (NOT DETECT); Coronavirus 229E,HKU1,NL63,OC4 Not Detected (NOT DETECT); Human Metapneumovirus Not Detected (NOT DETECT); Human Rhinovirus/Enterovirus Not Detected (NOT DETECT); Influenza A Not Detected (NOT DETECT); Influenza A H1 Not Detected (NOT DETECT); Influenza A H1-2009 Not Detected (NOT DETECT); Influenza A H3 Not Detected (NOT DETECT); Influenza B Not Detected (NOT DETECT); Mycoplasma Pneumoniae Not Detected (NOT DETECT); Parainfluenza Virus Type 1 Not Detected (NOT DETECT); Parainfluenza Virus Type 2 Not Detected (NOT DETECT); Parainfluenza Virus Type 3 Not Detected (NOT DETECT); Parainfluenza Virus Type 4 Not Detected (NOT DETECT); Respiratory Syncytial Virus A Not Detected (NOT DETECT); Respiratory Syncytial Virus B Not Detected (NOT DETECT); SARS-COV-2 Not Detected (NOT DETECT)
[2024-04-04 21:25] VITALS: BP 125/66; PULSE 96; RESP 18; TEMP 36.9; O2SAT 96
[2024-04-05 06:00] VITALS: BP 97/61; PULSE 81; RESP 17; TEMP 36.6; O2SAT 93
[2024-04-05] MEDS: pyridoxine 50 mg Tablet 300 MG PO (08:01)
[2024-04-05] MEDS: sertraline 50 mg Tablet 100 MG PO (08:01)
--- NOTE | 2024-04-05 11:37 | P.NPUDS_ITS ---
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 discharge.? During the hospitalization, patient had routine laboratory studies which were within normal limits except for few outliers.? Additionally there was a general medical evaluation which was also within normal limits and revealed no new acute processes. Discharge Summary: At the time of discharge, patient denied psychosis or lethality.? Mood and anxie ty were well managed.? Patient endorsed a plan to avoid all drugs of abuse and follow-up with the aftercare recommendations of the treatment team.? Patient was evaluated and deemed to be absent credible lethality, and had achieved the maximum benefit from an inpatient hospitalization, so was discharged. Hospital Course Hospital Course During the hospitalization, the patient had routine laboratory studies which were within normal limits except for a few outliers.? Additionally, there was a general medical evaluation which was also within normal limits and revealed no new acute processes.? At the time of discharge, lethality was denied and psychosis was resolving.? Mood and anxiety were well managed.? The patient endorsed a plan to avoid all drugs of abuse and follow up with the aftercare recommendations of the treatment team.? The patient was evaluated and deemed to be absent credible lethality and had achieved the maximum benefit from an inpatient hospitalization, and so was discharged. ?The patient was started on Latuda to target mood lability and psychosis with improvement noted on discha rge. Vitamin B6 was added to help with patient movement disorder. The patient's Zoloft was increased from 50 mg sedated to 100 mg a day to target anxiety and depression. She had denied any desire to consider inpatient substance abuse treatment despite adverse consequences associated with her continued use. Involuntary Hold Information 96 Hour Hold: 96 Hour Involuntary Admission: Yes 96 Hour Hold Ending Date: 04/05/24 96 Hour Hold Ending Time: 12:30 Mental Status Exam MSE Comments: This is an underweight versus cachectic white female in hospital scrubs on with limited grooming and eye contact. Poor/absent dentition looking much older than her stated age. No abnormal movements except for significant psychomotor agitation consistent with less choreoform movements of arms appreciated. She was minimally cooperative with exam in moderate distress. Speech was mostly normal in rate with variable volume was significant slurring of speech and dysarthric. Mood described as better. Afffect was more subdued. Thought process was linear with some continued perseveration. Thought content: Patient endorsed suicidal ideation with no homicidal ideation. There were no delusions appreciated. She denies any auditory or visual hallucinations and did not appear to be responding to internal stimuli. The patient appears to be under significant stress and possibly fear due to her living situation. Attention and concentration appeared variable. Her recent and remote memory were at baseline. . Alert and oriented x person,place and time. Insight was feeble. Judgment appeared better. Impulse control is fair. Discharge Data Studies Completed and Pending: Laboratory Results WBC 10.03 10^3/uL (3. 29-11.43) 03/30/24 13:06 RBC 4.10 10^6/uL (3.8 5-5.65) 03/30/24 13:06 Hgb 12.30 g/dL (11.27 -16.99) 03/30/24 13:06 Hct 38.8 % (36-47) 03/30/24 13:06 MCV 94.6 fl (85-98) 03/30/24 13:06 MCH 30.0 pg (27-33) 03/30/24 13:06 MCHC 31.7 g/dL (30-55) 03/30/24 13:06 RDW 13.8 % (12.1-15.1 ) 03/30/24 13:06 Plt Count 361 10^3/cmm (157 -399) 03/30/24 13:06 MPV 10.0 fL (7.4-10.4 ) 03/30/24 13:06 Neut % (Auto) 58.5 % 03/30/24 13:06 Lymph % (Auto) 27.5 % 03/30/24 13:06 [place] % (Auto) 6.6 % 03/30/24 13:06 Eos % (Auto) 6.0 % 03/30/24 13:06 Baso % (Auto) 1.2 % 03/30/24 13:06 Neut # (Auto) 5.87 10^3/uL (1.8 -7.7) 03/30/24 13:06 Lymph # (Auto) 2.8 10^3/uL (0.8- 4.8) 03/30/24 13:06 [place] # (Auto) 0.7 10^3/uL (0.2- 0.9) 03/30/24 13:06 Eos # (Auto) 0.6 10^3/uL (0.0- 0.8) 03/30/24 13:06 Baso # (Auto) 0.1 10^3/uL (0.0- 0.1) 03/30/24 13:06 Nucleated RBC % (a uto) 0 % 03/30/24 13:06 Nucleated RBCs # 0.0 /100WBC 03/30/24 13:06 Sodium 144 mmol/L (136-1 45) 03/30/24 13:06 Potassium 4.3 mmol/L (3.5-5 .1) 03/30/24 13:06 Chloride 108 mmol/L (98-10 7) H 03/30/24 13:06 Carbon Dioxide 26 mmol/L (22-29) 03/30/24 13:06 Anion Gap 14.3 (5-19) 03/30/24 13:06 BUN 19 mg/dL (6-20) 03/30/24 13:06 Creatinine 0.6 mg/dL (0.5-0. 9) 03/30/24 13:06 GFR Calculation 102.7 mL/min (90- 130) 03/30/24 13:06 Glucose 102 mg/dL (65-115 ) 03/30/24 13:06 Calculated Osmolal ity 300 mOsm/kg (285- 295) H 03/30/24 13:06 Calcium 9.7 mg/dL (8.5-10 .5) 03/30/24 13:06 Total Bilirubin 0.5 mg/dL (0.15-1 .2) 03/30/24 13:06 AST 14 U/L (0-32) 03/30/24 13:06 ALT 10 U/L (0-33) 03/30/24 13:06 Alkaline Phosphata se 106 U/L (35-105) H 03/30/24 13:06 Total Protein 6.4 g/dL (6.6-8.7 ) L 03/30/24 13:06 Albumin 4.0 g/dL (3.5-5.2 ) 03/30/24 13:06 Globulin 2.4 g/dL (1.3-4.6 ) 03/30/24 13:06 Salicylates < 0.3 mg/dL (3-10 ) L 03/30/24 13:06 Urine Opiates Scre en Negative ng/mL (N egative) 03/30/24 13:21 Acetaminophen < 5.0 ug/mL (10-3 0) L 03/30/24 13:06 Ur Barbiturates Sc reen Negative ng/mL (N egative) 03/30/24 13:21 Ur Phencyclidine S crn Negative ng/mL (N egative) 03/30/24 13:21 Ur Amphetamines Sc reen Positive ng/mL (N egative) H 03/30/24 13:21 U Benzodiazepines Scrn Negative ng/mL (N egative) 03/30/24 13:21 Urine Cocaine Scre en Negative ng/mL (N egative) 03/30/24 13:21 U Marijuana (THC) Screen Negative ng/mL (N egative) 03/30/24 13:21 Ethyl Alcohol < 10 mg/dL (0-10) 03/30/24 13:06 Adenovirus (PCR) Not detected (NO T DETECT) 04/04/24 Unknown C. pneumoniae DNA (PCR) Not detected (NO T DETECT) 04/04/24 Unknown C. difficile (PCR) Negative (Negati ve) 04/04/24 16:25 Coronavirus 229E ( PCR) Not detected (NO T DETECT) 04/04/24 Unknown Human Metapneumovi r PCR Not detected (NO T DETECT) 04/04/24 Unknown Influenza A (H1) P CR Not detected (NO T DETECT) 04/04/24 Unknown Influ A (H1/09) PC R Not detected (NO T DETECT) 04/04/24 Unknown Influenza A (H3) P CR Not detected (NO T DETECT) 04/04/24 Unknown Influenza Type A ( PCR) Not detected (NO T DETECT) 04/04/24 Unknown Influenza Type B ( PCR) Not detected (NO T DETECT) 04/04/24 Unknown M. pneumoniae (PCR ) Not detected (NO T DETECT) 04/04/24 Unknown Parainfluenza 1 (P CR) Not detected (NO T DETECT) 04/04/24 Unknown Parainfluenza 2 (P CR) Not detected (NO T DETECT) 04/04/24 Unknown Parainfluenza 3 (P CR) Not detected (NO T DETECT) 04/04/24 Unknown Parainfluenza 4 (P CR) Not detected (NO T DETECT) 04/04/24 Unknown RSV Type A (PCR) Not detected (NO T DETECT) 04/04/24 Unknown RSV Type B (PCR) Not detected (NO T DETECT) 04/04/24 Unknown Entero/Rhino (PCR) Not detected (NO T DETECT) 04/04/24 Unknown SARS-CoV-2 (PCR) Not detected (NO T DETECT) 04/04/24 Unknown Vitals: Last Vital Signs Temp 98 F 04/05/24 06:00 Pulse 81 04/05/24 06:00 Resp 17 04/05/24 06:00 BP 97/61 04/05/24 06:00 Pulse Ox 93 04/05/24 06:00 O2 Del Method Room Air 04/05/24 06:00 Discharge Plan Discharge Patient Disposition: Home Condition: Stable Prescriptions: New lurasidone 40 mg tablet 40 mg PO 1800 30 Days Qty: 30 0RF Rx Instructions: take 1 hour after dinner. pyridoxine (vitamin B6) 50 mg Tablet 150 mg PO BID 15 Days Qty: 90 1RF lurasidone [Latuda] 40 mg tablet 40 mg PO QPM Qty: 30 0RF Rx Instructions: must administer with food (at least 350 calories) sertraline [Zoloft] 100 mg tablet 100 mg PO DAILY Qty: 30 1RF sertraline [Zoloft] 100 mg tablet 100 mg PO DAILY 30 Days Qty: 30 0RF Continued (DME) blood-glucose meter [True Metrix Glucose Meter] Kit See Rx Instructions .Route Qty: 1 0RF Rx Instructions: As directed (DME) True Metrix Glucose Test Strip Strip See Rx Instructions .Route Qty: 100 3RF Rx Instructions: use 1 daily triamcinolone acetonide 0.1 % cream 1 applic topical BID PRN (Reason: for itching) Qty: 80 0RF Rx Instructions: apply arms, torso and legs Anoro Ellipta 62.5-25 mcg/actuation blister with device 1 inh inhalation Q24H Qty: 60 2RF albuterol sulfate 90 mcg/actuation HFA aerosol inhaler 1 puff INHALATION QID PRN (Reason: Shortness Of Breath) Qty: 8.5 2RF hydroxyzine HCl 10 mg tablet 10 mg PO BID PRN (Reason: anxiety) Qty: 30 1RF Rx Instructions: Take1 tablet by mouth twice daily, if needed for anxiety; at least 4 to 6 hours apart trazodone 50 mg tablet See Rx Instructions PO DAILY PRN (Reason: insomnia) Qty: 30 1RF Rx Instructions: Take 1/2 to one tablet daily at bedtime, if needed for insomnia Discontinued ziprasidone HCl 20 mg capsule 20 mg PO BID Qty: 60 1RF Rx Instructions: Take one tablet by mouth every morning and evening-take with meal/snack sertraline 50 mg tablet 50 mg PO DAILY Rx Instructions: Take one tablet by mouth every morning Discharge Orders: Discharge Order (Routine); Ordered 04/05/24 Ordered By: Bandar Mckeon Referrals: [facility] [Other] Marifer Diaz LPC [Other] (You will be contacted.) Rachael Jordan APRN [Nurse Practitioner] - 04/26/24 2:15 pm (Follow up) Lucila Thomas FNP-C [Primary Care Provider] - 04/19/24 3:40 pm (Follow up) Discharge Diet: Usual diet Discharge Activity: Resume usual activity Patient Instructions: Sertraline (By mouth) (Zoloft), Vitamin B Complex (By mouth), Lurasidone (By mouth), Brief Psychotic Disorder (DC), Methamphetamine Use Disorder (DC), Help Prevent Suicide in Older Adults (DC), Opioid Safety Discharge Attestations NPU Time Spent in Discharge Care*: less than 30 min Specific Discharge Activities: Specific discharge activities: educating patient, discussing with case packer/social workers/dc planners and documenting/other paperwork Status at Discharge: Cognitive status at discharge: cognitively intact , Behavioral status at discharge: cooperative , Coding Level of Care Code Acute Code for [facility] Fwd Diagnoses Schizoaffective disorder, depressive type F25.1 Suicidal ideation R45.851 Chronic migraine without aura, intractable, with status migrainosus G43.711 Seizure R56.9 Demyelinating disease of central nervous system G37.9 Cannabis dependence, uncomplicated F12.20 Major depressive disorder, recurrent severe without psychotic features F33.2 Methamphetamine use disorder, severe, dependence F15.20 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
--- NOTE | 2024-04-05 11:49 | DCPLANNER ---
Imm was given to pt and rights explained and copy placed in pts file.
[2024-04-05 12:17] VITALS: BP 139/90; PULSE 88; RESP 16; TEMP 36.9; O2SAT 98
[2024-04-05 14:00] VITALS: BP 107/82; PULSE 102; RESP 16; TEMP 36.6; O2SAT 97
== END 2024-04-05 14:30 | disposition home or self-care (01) | DRG 885 ==
LOC: ER 12:51 → NP 13:55
PROVIDERS: Admitting Provider Psychiatry & Neurology Psychiatry; Emergency Provider Emergency Medicine; PCP Nurse Practitioner; Visit Provider Psychiatry & Neurology Psychiatry
DX: F25.1 Schizoaffective disorder, depressive type (principal); F15.23 Other stimulant dependence with withdrawal; R45.851 Suicidal ideations; G37.9 Demyelinating disease of central nervous system, unspecified; G24.01 Drug induced subacute dyskinesia; E11.9 Type 2 diabetes mellitus without complications; K21.9 Gastro-esophageal reflux disease without esophagitis; G43.711 Chronic migraine without aura, intractable, with status migrainosus; F03.90 Unspecified dementia, unspecified severity, without behavioral disturbance, psychotic disturbance, mood disturbance, and anxiety; F12.20 Cannabis dependence, uncomplicated; F17.210 Nicotine dependence, cigarettes, uncomplicated; F19.959 Other psychoactive substance use, unspecified with psychoactive substance-induced psychotic disorder, unspecified; Z11.52 Encounter for screening for COVID-19; Z98.1 Arthrodesis status
CPT/HCPCS: 36415; 80053; 80306; 80307; 85025; 87486; 87493; 87581; 87633; 94640; 96372; 97150; 97165; 97167; 99285; J2060; J2550; Q0162

== ENCOUNTER → 2024-04-19 11:42 | Outpatient (BNVA) | payer MEDICARE, MEDICAID, SELFPAY ==
[2024-03-31 12:50] VITALS: BP 157/89; BMI 32.2
== END ==
PROVIDERS: PCP Nurse Practitioner; Visit Provider Nurse Practitioner
DX: M25.532 Pain in left wrist (principal); M25.552 Pain in left hip; J44.9 Chronic obstructive pulmonary disease, unspecified
CPT/HCPCS: 73110; 73502

== ENCOUNTER 2024-04-28 06:20 | Emergency (ER) | payer MEDICARE, MEDICAID, SELFPAY ==
[2024-03-31 12:50] VITALS: BP 157/89; BMI 32.2
[2024-04-28 06:21] VITALS: BP 91/72; PULSE 87; RESP 18; O2SAT 94; BMI 21.4
--- NOTE | 2024-04-28 06:27 | XR_ITS ---
WS: [id number] XR chest 1V portable [id number] REASON FOR EXAM: dyspnea/cough FINDINGS: The chest is unchanged compared to 01/21/2024. The heart and mediastinum are within normal limits. Bilateral central calcified granulomatous disease. No acute pulmonary parenchymal or pleural findings. Minimal levoscoliosis and degenerative spondylosis. XR/XR chest 1V portable [id number] IMPRESSION: Stable chest without acute abnormality.
--- NOTE | 2024-04-28 06:28 | ECG_ITS ---
[facility] 2024-04[facility]28 Pat Name: Brenna Amor Department: Room: Gender: Female Document Control Assistant: : 1965 Requested By: Hunter Storm Order Number: [id number] Reading MD: BEV ALMANZA Measurements Intervals [place] Rate: 68 P: 72 OK: 117 QRS: 75 QRSD: 82 T: 69 QT: 394 QTc: 421 Interpretive Statements SINUS RHYTHM WITH SHORT OK INTERVAL Compared to ECG 01/21/2024 15:25:48 Short OK interval now present Electronically Signed On 04-30-2024 23:30:33 FIELD GEOLOGIST by BEV ALMANZA [email or web address]
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
[2024-04-28 06:53] VITALS: BP 91/72; PULSE 79; RESP 18; O2SAT 95
[2024-04-28 06:56] LABS: Basophils # 0.1 10^3/uL (0.0-0.1); Basophils % 1.6 %; Eosinophils # 0.7 10^3/uL (0.0-0.8); Eosinophils % 8.3 %; Hematocrit 41.7 % (36-47); Lymphocytes # 3.6 10^3/uL (0.8-4.8); Lymphocytes % 41.6 %; Mean Corpuscular HGB Conc 31.7 g/dL (30-55); Mean Corpuscular Hemoglobin 30.1 pg (27-33); Mean Platelet Volume 10.2 fL (7.4-10.4); Monocytes # 0.7 10^3/uL (0.2-0.9); Monocytes % 8.7 %; Neutrophils # 3.37 10^3/uL (1.8-7.7); Neutrophils % 39.4 %; Nucleated Red Blood Cells % 0 %; Platelet Count 358 10^3/cmm (157-399); Red Blood Count 4.39 10^6/uL (3.85-5.65); Red Cell Distribution Width 14.1 % (12.1-15.1); White Blood Count 8.54 10^3/uL (3.29-11.43)
[2024-04-28 07:12] VITALS: BP 99/73; O2SAT 95
[2024-04-28 07:15] LABS: Lactic Sepsis W/Reflex 0.9 mmol/L (0.5-2.2)
[2024-04-28 07:16] LABS: Alanine Aminotransferase 13 U/L (0-33); Albumin Level 4.2 g/dL (3.5-5.2); Alkaline Phosphatase 97 U/L (35-105); Anion Gap 12.9 (5-19); Aspartate Amino Transferase 17 U/L (0-32); Blood Urea Nitrogen 17 mg/dL (6-20); Carbon Dioxide 27 mmol/L (22-29); Chloride 105 mmol/L (98-107); Creatinine Clr Calc Pharmacy 91.4967; Globulin 3.2 g/dL (1.3-4.6); Glomerular Filtration Rate 126.7 mL/min (90-130); Glucose 114 mg/dL (65-115); Osmolality Calculated 292 mOsm/kg (285-295); Potassium 4.9 mmol/L (3.5-5.1); Sodium 140 mmol/L (136-145); Total Bilirubin 0.5 mg/dL (0.15-1.2); Total Protein 7.4 g/dL (6.6-8.7)
[2024-04-28 07:21] LABS: Amphetamines Screen Urine Positive (Negative); Barbiturates Screen Urine Negative (Negative); Benzodiazepines Screen Urine Negative (Negative); Cocaine Screen Urine Negative (Negative); Opiate Screen Urine Negative (Negative); PCP Screen Urine Negative (Negative); THC Screen Urine Negative (Negative)
[2024-04-28 07:33] LABS: Bilirubin Urine Negative (Negative); Blood Urine Negative (Negative); Glucose Urine UA Negative (Normal); Ketones Urine Negative (Negative); Leukocyte Esterase Urine Negative (Negative); Nitrate Urine Negative (Negative); Protein Urine Negative (Negative); Specific Gravity, Urine 1.021 (1.005-1.030); Urine Appearance Clear (CLEAR); Urine Color Yellow (Yellow); Urobilinogen Urine 0.2 mg/dL (Negative); pH Urine 5.5 (5-7)
[2024-04-28 07:36] LABS: Add Urine Microscopic? YES; Bacteria Urine 1+ /hpf; Hyaline Casts Urine 0-4 /lpf; RBC Urine 0-2 /hpf (0-2)
[2024-04-28 07:44] LABS: Covid PCR NEGATIVE (Negative); Influenza A NEGATIVE (Negative); Influenza B NEGATIVE (Negative); Respiratory Syncytial Virus Ce NEGATIVE (Negative)
[2024-04-28 07:59] VITALS: BP 98/73; PULSE 66; O2SAT 95
== END 2024-04-28 07:59 | disposition home or self-care (01) ==
PROVIDERS: Emergency Provider Family Medicine; PCP Nurse Practitioner
DX: F15.10 Other stimulant abuse, uncomplicated (principal); J43.8 Other emphysema; Z11.52 Encounter for screening for COVID-19; F17.210 Nicotine dependence, cigarettes, uncomplicated; J44.9 Chronic obstructive pulmonary disease, unspecified; E11.9 Type 2 diabetes mellitus without complications
CPT/HCPCS: 36415; 71045; 80053; 80306; 81001; 83605; 85025; 87040; 87637; 93005; 99285

== ENCOUNTER → 2024-07-01 14:01 | Outpatient (BNVA) | payer OTHER, SELFPAY ==
[2024-06-28 10:58] VITALS: BP 157/89; BMI 32.2
== END ==
PROVIDERS: PCP Nurse Practitioner; Visit Provider Psychiatry & Neurology Psychiatry
DX: F33.2 Major depressive disorder, recurrent severe without psychotic features (principal); F25.1 Schizoaffective disorder, depressive type; Z79.899 Other long term (current) drug therapy
CPT/HCPCS: 80061; 83036

== ENCOUNTER 2024-07-15 12:28 | Emergency (ER) | payer MEDICAID, SELFPAY ==
[2024-07-02 10:48] VITALS: BP 144/87; BMI 21.2
[2024-07-15 12:43] VITALS: BP 110/63; PULSE 104; TEMP 36.7; O2SAT 97; BMI 21.1
--- NOTE | 2024-07-15 14:16 | ECG_ITS ---
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 Measurements Intervals [place] Rate: 73 P: 67 DE: 126 QRS: 64 QRSD: 86 T: 59 QT: 360 QTc: 398 Interpretive Statements SINUS RHYTHM Compared to ECG 04/28/2024 06:29:46 Short DE interval no longer present Electronically Signed On 07-15-2024 17:33:37 CDT by Neymar Blue M.D. [email or web address] [id number]
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
[2024-07-15 14:45] LABS: Basophils % 1.1 %; Eosinophils % 0.5 %; Hematocrit 47.2 % (36-47); Lymphocytes # 1.7 10^3/uL (0.8-4.8); Lymphocytes % 46.1 %; Mean Corpuscular HGB Conc 29.9 g/dL (30-55); Mean Corpuscular Hemoglobin 30.2 pg (27-33); Mean Corpuscular Volume 101.1 fl (85-98); Mean Platelet Volume 11.1 fL (7.4-10.4); Monocytes # 0.6 10^3/uL (0.2-0.9); Monocytes % 17.3 %; Neutrophils # 1.29 10^3/uL (1.8-7.7); Neutrophils % 34.7 %; Nucleated Red Blood Cells % 0 %; Platelet Count 173 10^3/cmm (157-399); Red Blood Count 4.67 10^6/uL (3.85-5.65); Red Cell Distribution Width 13.4 % (12.1-15.1); White Blood Count 3.71 10^3/uL (3.29-11.43)
[2024-07-15 15:08] LABS: Alanine Aminotransferase 12 U/L (0-33); Albumin Level 3.7 g/dL (3.5-5.2); Alkaline Phosphatase 75 U/L (35-105); Blood Urea Nitrogen 21 mg/dL (6-20); Calcium 8.5 mg/dL (8.5-10.5); Carbon Dioxide 17 mmol/L (22-29); Chloride 102 mmol/L (98-107); Creatine Phosphokinase 51 U/L (26-192); Creatinine Clr Calc Pharmacy 56.0544; Globulin 3.1 g/dL (1.3-4.6); Glomerular Filtration Rate 73.4 mL/min (90-130); Glucose 122 mg/dL (65-115); Osmolality Calculated 280 mOsm/kg (285-295); Sodium 133 mmol/L (136-145); Total Bilirubin 0.3 mg/dL (0.15-1.2); Total Protein 6.8 g/dL (6.6-8.7)
[2024-07-15 15:16] LABS: Anion Gap 18.2 (5-19); Aspartate Amino Transferase 21 U/L (0-32); Potassium 4.2 mmol/L (3.5-5.1)
[2024-07-15 15:29] LABS: Influenza A NEGATIVE (Negative); Influenza B NEGATIVE (Negative); Respiratory Syncytial Virus Ce NEGATIVE (Negative); SARS-CoV-2 PCR NEGATIVE (Negative)
== END 2024-07-15 15:37 | disposition left against medical advice (07) ==
PROVIDERS: Emergency Provider Family Medicine; PCP Nurse Practitioner
DX: M79.10 Myalgia, unspecified site (principal); Z87.898 Personal history of other specified conditions; F17.210 Nicotine dependence, cigarettes, uncomplicated; J44.9 Chronic obstructive pulmonary disease, unspecified; E11.9 Type 2 diabetes mellitus without complications
CPT/HCPCS: 36415; 80053; 82550; 85025; 87637; 93005; 99284

== ENCOUNTER 2024-08-29 11:37 | Emergency (ER) | payer MEDICARE, MEDICAID, SELFPAY ==
[2024-08-10 19:48] VITALS: BP 144/87; BMI 21.2
[2024-08-29 11:40] VITALS: BP 105/63; PULSE 91; RESP 16; TEMP 36.7; O2SAT 96; BMI 20.5
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
[2024-08-29 11:56] LABS: Basophils # 0.1 10^3/uL (0.0-0.1); Eosinophils # 0.4 10^3/uL (0.0-0.8); Eosinophils % 3.4 %; Hematocrit 44.7 % (36-47); Lymphocytes # 3.7 10^3/uL (0.8-4.8); Lymphocytes % 31.7 %; Mean Corpuscular HGB Conc 31.8 g/dL (30-55); Mean Corpuscular Volume 94.5 fl (85-98); Mean Platelet Volume 10.4 fL (7.4-10.4); Monocytes # 0.7 10^3/uL (0.2-0.9); Monocytes % 6.1 %; Neutrophils # 6.64 10^3/uL (1.8-7.7); Neutrophils % 57.5 %; Nucleated Red Blood Cells % 0 %; Platelet Count 272 10^3/cmm (157-399); Red Blood Count 4.73 10^6/uL (3.85-5.65); Red Cell Distribution Width 13.4 % (12.1-15.1); White Blood Count 11.52 10^3/uL (3.29-11.43)
[2024-08-29 12:21] LABS: Alanine Aminotransferase 9 U/L (0-33); Albumin Level 4.2 g/dL (3.5-5.2); Alkaline Phosphatase 97 U/L (35-105); Anion Gap 16.2 (5-19); Aspartate Amino Transferase 14 U/L (0-32); Blood Urea Nitrogen 15 mg/dL (6-20); Calcium 9.9 mg/dL (8.5-10.5); Carbon Dioxide 24 mmol/L (22-29); Chloride 104 mmol/L (98-107); Creatinine Clr Calc Pharmacy 88.6459; Globulin 3.2 g/dL (1.3-4.6); Glomerular Filtration Rate 126.3 mL/min (90-130); Glucose 114 mg/dL (65-115); Osmolality Calculated 292 mOsm/kg (285-295); Potassium 4.2 mmol/L (3.5-5.1); Sodium 140 mmol/L (136-145); Thyroid Stimulating Hormone 0.68 uIU/mL (0.27-4.20); Total Bilirubin 0.8 mg/dL (0.15-1.2); Total Protein 7.4 g/dL (6.6-8.7)
[2024-08-29 12:22] LABS: Acetaminophen < 5.0 ug/mL (10-30); Alcohol Level < 10 mg/dL (0-10); Salicylate < 0.3 mg/dL (3-10)
--- NOTE | 2024-08-29 12:22 | PC.NURSE ---
96 hour hold rights read and reviewed with patient. Patient verbalized understandings. Copy of rights given to patient.
[2024-08-29 12:32] LABS: Influenza A NEGATIVE (Negative); Influenza B NEGATIVE (Negative); Respiratory Syncytial Virus Ce NEGATIVE (Negative); SARS-CoV-2 PCR NEGATIVE (Negative)
[2024-08-29 13:54] LABS: Protein Urine Trace (Negative); Specific Gravity, Urine 1.025 (1.005-1.030); Urine Appearance Clear (CLEAR); Urine Color Dark Yellow (Yellow); pH Urine 5 (5-7)
[2024-08-29 13:55] LABS: Add Urine Microscopic? YES; Bilirubin Urine 1+ (Negative); Blood Urine Neg (Negative); Glucose Urine UA Norm (Normal); Ketones Urine Negative (Negative); Leukocyte Esterase Urine Trace (Negative); Nitrate Urine Negative (Negative); Urobilinogen Urine 1 mg/dL (Negative)
[2024-08-29 13:58] LABS: Bacteria Urine 1+ /hpf; Hyaline Casts Urine 2.46 /lpf
[2024-08-29 14:07] LABS: Amphetamines Screen Urine Positive (Negative); Barbiturates Screen Urine Negative (Negative); Benzodiazepines Screen Urine Negative (Negative); Cocaine Screen Urine Negative (Negative); Opiate Screen Urine Negative (Negative); PCP Screen Urine Negative (Negative); THC Screen Urine Negative (Negative)
--- NOTE | 2024-08-29 14:50 | ECG_ITS ---
[facility] Test Date: 2024-08-29 Pat Name: Brenna Amor Department: Room: Gender: Female Service Coordinator: : 1965 Requested By: Daniella Ortiz Order Number: [id number] Sydnee MD: Carlita Huynh M.D. Measurements Intervals [place] Rate: 75 P: 79 WI: 120 QRS: 78 QRSD: 85 T: 71 QT: 386 QTc: 433 Interpretive Statements SINUS RHYTHM Compared to ECG 07/15/2024 14:16:38 No significant changes Electronically Signed On 08-29-2024 19:54:32 CDT by Carlita Huynh M.D. [email or web address] [id number]
[2024-08-29 16:00] VITALS: BP 110/63; PULSE 85; RESP 16; O2SAT 96
--- NOTE | 2024-08-29 16:40 | XRR_ITS ---
PROCEDURE INFORMATION: Exam: XR Chest Exam date and time: 08/29/2024 4:45 PM Age: 59 years old Clinical indication: Other: Mhe pysch transfer; Additional info: Mhe psych transfer TECHNIQUE: Imaging protocol: Radiologic exam of the chest. Views: 1 view. COMPARISON: CR XR chest 1V portable [id number] 04/28/2024 7:03 AM FINDINGS: Lungs: Unremarkable. No consolidation. Pleural spaces: Unremarkable. No pleural effusion. No pneumothorax. Heart/Mediastinum: Unremarkable. No cardiomegaly. Bones/joints: Old left-sided rib fractures. XR/XR chest 1V portable [id number] IMPRESSION: As above.
[2024-08-29] MEDS: LORazepam 1 MG/0.5 ML injection 2 MG IM (19:24)
== END 2024-08-29 20:21 | disposition short-term general hospital (02) ==
PROVIDERS: Emergency Provider Emergency Medicine
DX: R45.851 Suicidal ideations (principal); Z11.52 Encounter for screening for COVID-19; F17.210 Nicotine dependence, cigarettes, uncomplicated; E11.9 Type 2 diabetes mellitus without complications; J44.9 Chronic obstructive pulmonary disease, unspecified
CPT/HCPCS: 71045; 80053; 80306; 80307; 81001; 84443; 85025; 87637; 93005; 96372; 99285; J2060

== ENCOUNTER 2024-09-10 19:41 | Emergency (ER) | payer MEDICARE, MEDICAID, SELFPAY ==
[2024-08-10 19:48] VITALS: BP 144/87; BMI 21.2
--- NOTE | 2024-09-10 19:45 | XRR_ITS ---
PROCEDURE INFORMATION: Exam: XR Chest Exam date and time: 09/10/2024 8:57 PM Age: 59 years old Clinical indication: Cough TECHNIQUE: Imaging protocol: Radiologic exam of the chest. Views: 1 view. COMPARISON: CR (CHEST, ) 08/29/2024 4:45 PM FINDINGS: Lungs: Unremarkable. No consolidation. Pleural spaces: Unremarkable. No pleural effusion. No pneumothorax. Heart/Mediastinum: Unremarkable. No cardiomegaly. Bones/joints: Unremarkable. XR/XR chest 1V portable [id number] IMPRESSION: No acute findings.
[2024-09-10 19:46] VITALS: BP 124/62; PULSE 92; RESP 16; TEMP 36.6; O2SAT 96; BMI 21.1
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
[2024-09-10] MEDS: amoxicillin-clav 875-125 mg Tablet 1 TAB PO (21:25)
[2024-09-10] MEDS: dexamethasone 4 mg Tablet 10 MG PO (21:26)
[2024-09-10 21:50] VITALS: BP 130/70; PULSE 94; O2SAT 98
== END 2024-09-10 21:30 | disposition home or self-care (01) ==
PROVIDERS: Emergency Provider Nurse Practitioner
DX: J44.1 Chronic obstructive pulmonary disease with (acute) exacerbation (principal); F17.210 Nicotine dependence, cigarettes, uncomplicated; E11.9 Type 2 diabetes mellitus without complications
CPT/HCPCS: 71045; 99283; J8540; J9999

== ENCOUNTER → 2024-09-14 08:37 | Outpatient (BNVA) | payer MEDICARE, MEDICAID, SELFPAY ==
[2024-08-10 19:48] VITALS: BP 144/87; BMI 21.2
== END ==
PROVIDERS: PCP Nurse Practitioner; Visit Provider Nurse Practitioner
DX: M25.532 Pain in left wrist (principal)
CPT/HCPCS: 73110; 73130

== ENCOUNTER 2024-10-06 16:53 | Emergency (ER) | payer MEDICARE, MEDICAID, SELFPAY ==
[2024-09-20 09:56] VITALS: BP 144/87; BMI 21.2
[2024-10-06 16:59] VITALS: BP 120/50; PULSE 83; RESP 18; TEMP 36.4; O2SAT 98; BMI 21.1
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
[2024-10-06] MEDS: ketorolac 30 mg/mL INJ IVP (18:10)
[2024-10-06] MEDS: dexamethasone 10 mg/mL INJ 6 MG IVP (18:10)
== END 2024-10-06 18:19 | disposition home or self-care (01) ==
PROVIDERS: Emergency Provider Physician Assistant; PCP Nurse Practitioner
DX: M25.532 Pain in left wrist (principal); G89.29 Other chronic pain; F17.210 Nicotine dependence, cigarettes, uncomplicated; J44.9 Chronic obstructive pulmonary disease, unspecified
CPT/HCPCS: 96374; 96375; 99284; J1100; J1885

== ENCOUNTER 2024-10-08 17:18 | Inpatient (IN) | payer MEDICARE, MEDICAID, SELFPAY ==
[2024-09-20 09:56] VITALS: BP 144/87; BMI 21.2
[2024-10-08 17:23] VITALS: BP 172/74; PULSE 77; RESP 16; TEMP 36.7; O2SAT 98; BMI 21.1
[2024-10-08 17:27] VITALS: PULSE 77; RESP 16; O2SAT 98
--- OUTSIDE RECORDS SUMMARY | 2024-10-08 17:32 | XMS_ITS | Clinical Summary ---
Author Organization [facility] Address [address] [place] [address] Phone Care Team Providers Care Advice Nurse Name Role Phone Unavailable Primary Care Provider [...] on file Legal Sex Female 11:31 PM AUDIT SENIOR ASSOCIATE Gender Identity Not on file Sexual Orientation Not on file Last Filed Vital Signs Vital Sign Reading Time Taken Comments Blood Pressure 114/66 05/16/2024 5:45 PM AUDIT SENIOR ASSOCIATE Pulse 91 05/16/2024 5:45 PM AUDIT SENIOR ASSOCIATE Temperature 36.6 C (97.9 F) 05/16/2024 5:41 PM AUDIT SENIOR ASSOCIATE Respiratory Rate 18 05/16/2024 5:41 PM AUDIT SENIOR ASSOCIATE Oxygen Saturation 98% 05/16/2024 5:45 PM AUDIT SENIOR ASSOCIATE Inhaled Oxygen Concentration - - Weight 53 kg (116 lb 14.4 oz) 05/16/2024 5:41 PM AUDIT SENIOR ASSOCIATE Height 152.4 cm (5') 05/16/2024 5:41 PM AUDIT SENIOR ASSOCIATE Body Mass Index 22.83 05/16/2024 5:41 PM AUDIT SENIOR ASSOCIATE Plan of Treatment Health Maintenance Due Date [...] INFLUENZA VACCINE (#1) 2023 Insurance MEDICAID [place] [employer] [facility]
--- NOTE | 2024-10-08 17:36 | ECG_ITS ---
[facility]: 2024-10-08 Pat Name: Brenna Amor Department: Room: Gender: Female Certified Meeting Professional: : [id number] Requested By: Gordo Rodriguez Order Number: [id number] Randhawa MD: Neymar Blue M.D. Measurements Intervals Lena Rate: 68 P: 72 CO: 131 QRS: 51 QRSD: 80 T: 40 QT: 384 QTc: 411 Interpretive Statements SINUS RHYTHM Compared to ECG 08/29/2024 14:50:40 No significant changes Electronically Signed On 10-14-2024 09:39:58 CDT by Neymar Blue M.D. [email or web address]
[2024-10-08 17:47] LABS: Glucose Urine UA Negative (Normal); Nitrate Urine Negative (Negative); Specific Gravity, Urine 1.006 (1.005-1.030)
[2024-10-08 17:52] LABS: Add Urine Microscopic? YES
[2024-10-08 17:54] LABS: PCP Screen Urine Negative (Negative)
[2024-10-08 19:15] LABS: Hematocrit 38.7 % (36-47); Hemoglobin 12.50 g/dL (11.27-16.99); Mean Corpuscular HGB Conc 32.3 g/dL (30-55); Mean Corpuscular Hemoglobin 30.3 pg (27-33); Mean Corpuscular Volume 93.7 fl (85-98); Nucleated Red Blood Cells % 0 %; Platelet Count 253 10^3/cmm (157-399); Red Blood Count 4.13 10^6/uL (3.85-5.65); White Blood Count 12.65 10^3/uL (3.29-11.43)
[2024-10-08 19:39] LABS: Alanine Aminotransferase 9 U/L (0-33); Albumin Level 3.7 g/dL (3.5-5.2); Alkaline Phosphatase 77 U/L (35-105); Anion Gap 16.8 (5-19); Aspartate Amino Transferase 12 U/L (0-32); Blood Urea Nitrogen 14 mg/dL (6-20); Calcium 9.3 mg/dL (8.5-10.5); Carbon Dioxide 23 mmol/L (22-29); Chloride 107 mmol/L (98-107); Creatinine Clr Calc Pharmacy 74.7392; Globulin 2.3 g/dL (1.3-4.6); Glucose 168 mg/dL (65-115); Osmolality Calculated 300 mOsm/kg (285-295); Potassium 3.8 mmol/L (3.5-5.1); Sodium 143 mmol/L (136-145); Total Protein 6.0 g/dL (6.6-8.7)
[2024-10-08 19:40] LABS: Acetaminophen < 5.0 ug/mL (10-30); Alcohol Level < 10 mg/dL (0-10); Salicylate < 0.3 mg/dL (3-10)
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
[2024-10-08 20:16] VITALS: BP 109/54; PULSE 76; O2SAT 95
[2024-10-08 22:00] VITALS: BP 106/59; PULSE 59; O2SAT 96
[2024-10-08 23:08] VITALS: BP 108/60; PULSE 67; RESP 16; TEMP 36.5; O2SAT 96
[2024-10-09 06:00] VITALS: BP 121/71; PULSE 60; RESP 16; O2SAT 96
[2024-10-09 11:00] VITALS: O2SAT 96
[2024-10-09 14:00] VITALS: BP 116/63; PULSE 55; RESP 16; O2SAT 95
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
[2024-10-09 22:00] VITALS: BP 108/56; PULSE 62; RESP 16; TEMP 36.8; O2SAT 96
[2024-10-10 06:00] VITALS: BP 122/75; PULSE 88; RESP 16; O2SAT 93
[2024-10-10 12:30] VITALS: PULSE 111; RESP 20; O2SAT 99
[2024-10-10 14:00] VITALS: BP 110/74; PULSE 88; RESP 16; TEMP 37; O2SAT 96
--- NOTE | 2024-10-10 18:07 | P.NPUPN_ITS ---
Subjective NPU 2 Subjective: 59-year-old female with a history of psy chosis, depression, and methamphetamine use admitted with suicidal ideation. Patient had endorsed being homeless. She had continued report frustration in her living situation. She expressed anxiety that her was upstairs receiving medical treatment. She had been redirectable on the milieu. She continued to minimize the significance of her substance use. Patient had continued to endorse depression. She continued to minimize any hallucinations at this time. She reported having some feelings of hopelessness. She had been tearful at times during the interview. Patient continued to endorse having anxiety. Mental Status Exam 2 MSE Comments: This is an underweight versus cachectic white female in hospital scrubs on with limited grooming and eye contact shaved nearly bald. Poor/absent dentition looking much older than her stated age. No abnormal movements except for psychomotor agitation some gesticulations and oral buccal movements consistent with tardive dyskinesia. She was pleasant and cooperative with exam in moderate distress. Speech was mostly normal in rate r decreased volume was significant slurring and speech impediment. Mood described as depressed. Affect was odd and subdued. Thought process was mostly linear organized. Thought content: Patient denied suicidal or homicidal ideation, there were no delusions reported or but possibly paranoid and persecutory delusions noted, she denies any auditory or visual hallucinations this morning. The patient appears to be under significant stress due to her living situation. She reported feeling sometimes cornered her roommate not giving her personal space. Attention and concentration appear limited and memory was somewhat reliable but none were formally tested. Alert and oriented x person and place. Insight and judgment are limited and impulse control is impaired Vitals/I&O/Wt Last Vital Signs Temp 98.6 F 10/10/24 14:00 Pulse 88 10/10/24 14:00 Resp 16 10/10/24 14:00 BP 110/74 10/10/24 14:00 Pulse Ox 96 10/10/24 14:00 O2 Del Method Room Air 10/10/24 14:00 Weight last 48 hrs Weight 48.988 kg Data NPU 10/08/24 19:04 10/08/24 19:04 A&P Assessment and plan (1) Schizoaffective disorder, depressive type: (2) Suicidal ideation: (3) Chronic migraine without aura, intractable, with status migrainosus: (4) Itching of ear: (5) Trauma of ear canal: (6) Left shoulder pain: (7) Seizure: (8) Demyelinating disease of central nervous system: (9) Hereditary central nervous system amyloid angiopathy: (10) Cannabis dependence, uncomplicated: (11) Major depressive disorder, recurrent severe without psychotic features: (12) Methamphetamine use disorder, severe, dependence: (13) Drug-induced psychotic disorder: (14) Withdrawal from methamphetamine: (15) Suicidal ideation: Plan This is a 58 year old female with a history of schizoafffective disorder, methamphetamine dependence who is admitted for recent suicidal ideation with active methamphetamine use. 1.? Continue geodon 40mg bid with increase in zoloft to 100mg daily. Add Vitamin B6 for TD starting at 50mg bid. 2.? Continue every 15 minute checks for safety. 3.? Encourage individual, group and milieu therapies. 4.? Encourage sober living treatment after discharge at the highest level of care to which she is willing to commit. 5. Patient continues to have ambivalence about what is needed to ensure sobriety. PDMP PDMP Reviewed: Not Reviewed Involuntary Hold Information 2 Hold Status: Legal Status: 96 Hour Hold 96 Hour Hold: 96 Hour Involuntary Admission: Yes Attestations NPU 2 Medical Necessity Statement*: Inpatient hospitalization is medically necessary and the clinically appropriate intervention at this time. We will evaluate for medication changes and safety for discharge. Patient's likely length of stay is 3-5 days. Coding Level of Care Code Acute Code for [facility] Diagnoses Schizoaffective disorder, depressive type F25.1 Suicidal ideation R45.851 Chronic migraine without aura, intractable, with status migrainosus G43.711 Itching of ear L29.9 Trauma of ear canal S09.91XA Left shoulder pain M25.512 Seizure R56.9 Demyelinating disease of central nervous system G37.9 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
[2024-10-10 22:00] VITALS: RESP 18
[2024-10-11 06:00] VITALS: BP 122/64; PULSE 72; RESP 18; TEMP 36.3; O2SAT 95
[2024-10-11 14:00] VITALS: BP 99/52; PULSE 97; RESP 16; O2SAT 97
--- NOTE | 2024-10-11 15:11 | W.PM.NPUPNS ---
Subjective NPU Subjective: 59-year-old female with schizoaffective disorder depressed type and admitted with suicidal ideation. She continued to report that she is homeless. She reports that her is in the hospital for medical complications. She continued to report some feelings of hopelessness. She reported no side effects from her medication regimen. She had reported that she continued to struggle with mood swings. She had denied any recent use of methamphetamine. She was compliant and redirectable on the milieu. She denied having any suicidal thoughts at this time. Mental Status Exam MSE Comments: This is an underweight versus cachectic white female in hospital scrubs on with limited grooming and eye contact shaved nearly bald. Poor/absent dentition looking much older than her stated age. No abnormal movements except for psychomotor agitation some gesticulations and oral buccal movements consistent with tardive dyskinesia. She was pleasant and cooperative with exam in moderate distress. Speech was mostly normal in rate , decreased in volume was significant slurring and speech impediment. Mood described as okay. Affect was subdued. Thought process was linear and organized. Thought content: Patient denied suicidal or homicidal ideation, there were no delusions reported and no clear evidence of paranoia. She denies any auditory or visual hallucinations this morning. The patient appears to be under significant stress due to her living situation. Attention and concentration appear limited and memory was somewhat reliable but none were formally tested. Alert and oriented x person and place. Insight and judgment are limited and impulse control is impaired Vitals/I&O/Wt Last Vital Signs Temp 97.3 F L 10/11/24 06:00 Pulse 97 10/11/24 14:00 Resp 16 10/11/24 14:00 BP 99/52 10/11/24 14:00 Pulse Ox 97 10/11/24 14:00 O2 Del Method Room Air 10/11/24 14:00 Weight last 48 hrs Weight 48.988 kg Data NPU 10/08/24 19:04 10/08/24 19:04 A&P Assessment and plan (1) Schizoaffective disorder, depressive type: (2) Suicidal ideation: (3) Chronic migraine without aura, intractable, with status migrainosus: (4) Itching of ear: (5) Trauma of ear canal: (6) Left shoulder pain: (7) Seizure: (8) Demyelinating disease of central nervous system: (9) Hereditary central nervous system amyloid angiopathy: (10) Cannabis dependence, uncomplicated: (11) Major depressive disorder, recurrent severe without psychotic features: (12) Methamphetamine use disorder, severe, dependence: (13) Drug-induced psychotic disorder: (14) Withdrawal from methamphetamine: (15) Suicidal ideation: Plan This is a 58 year old female with a history of schizoafffective disorder, methamphetamine dependence who is admitted for recent suicidal ideation with active methamphetamine use. 1.? Continue geodon 40mg bid with continue zoloft at 100mg daily. Titrate Vitamin B6 for TD currently at 50mg bid. 2.? Continue every 15 minute checks for safety. 3.? Encourage individual, group and milieu therapies. 4.? Encourage sober living treatment after discharge at the highest level of care to which she is willing to commit. 5. Patient continues to have ambivalence about what is needed to ensure sobriety. PDMP PDMP Reviewed: Not Reviewed Involuntary Hold Information Hold Status: Legal Status: 96 Hour Hold Date/Time Hold Expires: voluntary 96 Hour Hold: 96 Hour Involuntary Admission: Yes Attestations NPU Medical Necessity Statement*: Inpatient hospitalization is medically necessary and the clinically appropriate intervention at this time. We will evaluate for medication changes and safety for discharge. Patient's likely length of stay is 3-5 days. Coding Level of Care Code Acute Code for [facility] Fwd Diagnoses Schizoaffective disorder, depressive type F25.1 Suicidal ideation R45.851 Chronic migraine without aura, intractable, with status migrainosus G43.711 Itching of ear L29.9 Trauma of ear canal S09.91XA Left shoulder pain M25.512 Seizure R56.9 Demyelinating disease of central nervous system G37.9 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
[2024-10-11 19:35] VITALS: BP 105/57; PULSE 66; RESP 16; TEMP 37.2; O2SAT 96
[2024-10-12 06:00] VITALS: BP 107/54; PULSE 79; RESP 16; TEMP 37; O2SAT 95
[2024-10-12 13:59] VITALS: BP 113/66; PULSE 97; RESP 18; TEMP 36.8; O2SAT 99
--- NOTE | 2024-10-12 15:00 | P.NPUPN_ITS ---
Subjective NPU 2 Subjective: 59-year-old female with schizoaffective disorder depressed type and admitted with suicidal ideation with history of polysubstance abuse. The patient had been last irritable and labile. She had spent much of her time in her room. She reported no side effects from her medication at this time. She had stated that she was hopeful about finding a place to live when she was discharged from the hospital. She had admitted this that she had been compliant with her medications recently. She had stated that it had been helpful for her mood swings. Mental Status Exam 2 MSE Comments: This is an underweight versus cachectic white female in hospital scrubs on with limited grooming and eye contact shaved nearly bald. Poor/absent dentition looking much older than her stated age. No abnormal movements except for psychomotor agitation some gesticulations and oral buccal movements consistent with tardive dyskinesia. She was pleasant and cooperative with exam in moderate distress. Speech was mostly normal in rate , decreased in volume was significant slurring and speech impediment and poor use of vietnamese with mistakes with proper nouns. Mood described as allright. Affect was odd and subdued. Thought process was linear and organized. Thought content: Patient denied suicidal or homicidal ideation, there were no delusions reported and no clear evidence of paranoia. She denies any auditory or visual hallucinations this morning. Attention and concentration appear limited and memory was somewhat reliable but none were formally tested. Alert and oriented x person and place. Insight and judgment are limited and impulse control is poor. Vitals/I&O/Wt Last Vital Signs Temp 98.2 F 10/12/24 13:59 Pulse 97 10/12/24 13:59 Resp 18 10/12/24 13:59 BP 113/66 10/12/24 13:59 Pulse Ox 99 10/12/24 13:59 O2 Del Method Room Air 10/12/24 13:59 Data NPU 10/08/24 19:04 10/08/24 19:04 A&P Assessment and plan (1) Schizoaffective disorder, depressive type: (2) Suicidal ideation: (3) Chronic migraine without aura, intractable, with status migrainosus: (4) Itching of ear: (5) Trauma of ear canal: (6) Left shoulder pain: (7) Seizure: (8) Demyelinating disease of central nervous system: (9) Hereditary central nervous system amyloid angiopathy: (10) Cannabis dependence, uncomplicated: (11) Major depressive disorder, recurrent severe without psychotic features: (12) Methamphetamine use disorder, severe, dependence: (13) Drug-induced psychotic disorder: (14) Withdrawal from methamphetamine: (15) Suicidal ideation: Plan This is a 59 year old female with a history of schizoafffective disorder, methamphetamine dependence who is admitted for recent suicidal ideation with active methamphetamine use. 1.? Continue geodon 40mg bid with continue zoloft at 100mg daily. Increase B6 100mg bid. 2.? Continue every 15 minute checks for safety. 3.? Encourage individual, group and milieu therapies. 4.? Encourage sober living treatment after discharge at the highest level of care to which she is willing to commit. 5. Patient continues to have ambivalence about what is needed to ensure sobriety. PDMP PDMP Reviewed: Not Reviewed Involuntary Hold Information 2 Hold Status: Legal Status: 96 Hour Hold Date/Time Hold Expires: voluntary 96 Hour Hold: 96 Hour Involuntary Admission: Yes Attestations NPU 2 Medical Necessity Statement*: Inpatient hospitalization is medically necessary and the clinically appropriate intervention at this time. We will evaluate for medication changes and safety for discharge. Patient's likely length of stay is 2-3 days. Coding Level of Care Code Acute Code for [facility] Diagnoses Schizoaffective disorder, depressive type F25.1 Suicidal ideation R45.851 Chronic migraine without aura, intractable, with status migrainosus G43.711 Itching of ear L29.9 Trauma of ear canal S09.91XA Left shoulder pain M25.512 Seizure R56.9 Demyelinating disease of central nervous system G37.9 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
[2024-10-12 19:19] VITALS: BP 115/68; PULSE 76; RESP 18; TEMP 36.6; O2SAT 99
[2024-10-13 06:00] VITALS: BP 110/62; PULSE 76; RESP 16; O2SAT 98
[2024-10-13 14:00] VITALS: BP 109/59; PULSE 74; RESP 18; TEMP 36.8; O2SAT 98
--- NOTE | 2024-10-13 14:01 | W.PM.NPUPNS ---
Subjective NPU Subjective: 59-year-old female with schizoaffective disorder depressed type and admitted with suicidal ideation with history of polysubstance abuse. The patient had reported that she was hopeful about going to be with her at [facility]. The patient had reported no cravings for methamphetamine. She had acknowledged having some legal troubles. She reported that she felt better about going to the facility but had reservations because she would not be allowed her cat at that facility. The patient did not appear to have any significant tantrums and minimized any suicidal thoughts at this time stating that she felt ready to leave the hospital. Mental Status Exam MSE Comments: This is an underweight versus cachectic white female in hospital scrubs on with limited grooming and eye contact shaved nearly bald. Poor/absent dentition looking much older than her stated age. No abnormal movements except for psychomotor agitation some gesticulations and oral buccal movements consistent with tardive dyskinesia. She was pleasant and cooperative with exam in moderate distress. Speech was mostly normal in rate , decreased in volume was significant slurring and speech impediment and poor use of russian with mistakes with proper nouns. Mood described as okay. Affect was odd and subdued. Thought process was linear and organized. Thought content: Patient denied suicidal or homicidal ideation, there were no delusions reported and no clear evidence of paranoia. She denies any auditory or visual hallucinations this morning. Attention and concentration appear limited and memory was somewhat reliable but none were formally tested. Alert and oriented x person and place. Insight and judgment is fair and impulse control is poor. Vitals/I&O/Wt Last Vital Signs Temp 97.8 F 10/12/24 19:19 Pulse 76 10/13/24 06:00 Resp 16 10/13/24 06:00 BP 110/62 10/13/24 06:00 Pulse Ox 98 10/13/24 06:00 O2 Del Method Room Air 10/12/24 13:59 Data NPU 10/08/24 19:04 10/08/24 19:04 A&P Assessment and plan (1) Schizoaffective disorder, depressive type: (2) Suicidal ideation: (3) Chronic migraine without aura, intractable, with status migrainosus: (4) Itching of ear: (5) Trauma of ear canal: (6) Left shoulder pain: (7) Seizure: (8) Demyelinating disease of central nervous system: (9) Hereditary central nervous system amyloid angiopathy: (10) Cannabis dependence, uncomplicated: (11) Major depressive disorder, recurrent severe without psychotic features: (12) Methamphetamine use disorder, severe, dependence: (13) Drug-induced psychotic disorder: (14) Withdrawal from methamphetamine: (15) Suicidal ideation: Plan This is a 59 year old female with a history of schizoafffective disorder, methamphetamine dependence who is admitted for recent suicidal ideation with active methamphetamine use. 1.? Continue geodon 40mg bid with continue zoloft at 100mg daily. Continue B6 100mg bid. 2.? Continue every 15 minute checks for safety. 3.? Encourage individual, group and milieu therapies. 4.? Encourage sober living treatment after discharge at the highest level of care to which she is willing to commit. 5. Patient continues to have ambivalence about what is needed to ensure sobriety. PDMP PDMP Reviewed: Not Reviewed Involuntary Hold Information Hold Status: Legal Status: 96 Hour Hold Date/Time Hold Expires: voluntary 96 Hour Hold: 96 Hour Involuntary Admission: Yes Attestations NPU Medical Necessity Statement*: Inpatient hospitalization is medically necessary and the clinically appropriate intervention at this time. We will evaluate for medication changes and safety for discharge. Patient's likely length of stay is 2-3 days. Coding Level of Care Code Acute Code for [facility] Diagnoses Schizoaffective disorder, depressive type F25.1 Suicidal ideation R45.851 Chronic migraine without aura, intractable, with status migrainosus G43.711 Itching of ear L29.9 Trauma of ear canal S09.91XA Left shoulder pain M25.512 Seizure R56.9 Demyelinating disease of central nervous system G37.9 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
[2024-10-13 20:09] VITALS: BP 138/64; PULSE 85; RESP 20; TEMP 36.8; O2SAT 96
[2024-10-14 05:17] VITALS: BP 125/78; PULSE 90; RESP 18; TEMP 36.6; O2SAT 96
--- NOTE | 2024-10-14 12:08 | W.PM.NPUDCS ---
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 would.1b) Client continues to use her coping skills as needed and states that she has been spending a lot of time in her bedroom. I will turn my music up to drown out the noise or I will spend most of the day talking with my niece Alison. [facility] informed the client that she would be getting a new showroom sales consultant and explained to client that the office was making some changes to the [facility] clientele. [facility] explained to client that she was being moved out of the [place] area and asked if it would be okay for her to have the new CSS tag along for next weeks session. Client stated that that would be totally fine. Client also let CSS know that once she starts going back to [facility] that she will need to move her sessions back to Wednesdays due to wanting to attend [facility] on Tuesdays and . I just really need to get away from here during the week and I feel that if I can attend [facility] again, it will help with the anxiety and I won't feel like I am going crazy. Being around others in a different atmosphere I feel will be good for me. Client did state that she had almost called [facility] last night because things had gotten so bad. Client stated that she had gotten so stressed that she had done some impulse buying over the internet and has left them with only $47 in the checking. I haven't told Dony yet because I know he will be upset with me; I know I wasn't suppose to go and buy things, but I felt like I had no other choice at the time. Client also stated that she has had a steady migraine from the past three or so months. client stated that it has been going on since September or October and it has gotten so bad that she will wake up with a migraine and will go to bed with a migraine. Client stated that she has upset several people especially Dony because she will try and say one thing but it comes out as something else and then she will get defensive because she feels she is being attacked for what she had said. I think that I say one thing but I end up saying something else and I guess I am not understanding as to why no one is understanding me. client stated that she doesn't know if her medications are off or if it is the blood vessels in/on her brain that are popping causing the outburst and causing her to snap. I am hoping that when I check myself in that they can possibly figure out if my medication is not set right or something. My neurology appointment is not until March 16, but I really need some answers because I really want to know what all is going on with my head. I can't take much more of this. Completes Objectives and Tasks: With Delay Action Plan: client stated that her plan is to check herself into the [facility] today in hopes that they can help her with what is going on. I really need a mental vacation from everything right now. CSS Return Plan: CSS return plan is to meet with client in one week to introduce her to her new CSS that will be taking over. Client Response: Client stated I will see you next week and I will call and let you know if I need to change our session from Friday to Friday. Hospital Course During the hospitalization, the patient had routine laboratory studies which were within normal limits except for a few outliers. Additionally, there was a general medical evaluation which was also within normal limits and revealed no new acute processes. At the time of discharge, lethality was denied and psychosis was resolving. Mood and anxiety were well managed. The patient endorsed a plan to avoid all drugs of abuse and follow up with the aftercare recommendations of the treatment team. The patient was evaluated and deemed to be absent credible lethality and had achieved the maximum benefit from an inpatient hospitalization, and so was discharged. The patient was started on Latuda to target mood lability and psychosis with improvement noted on discharge. Vitamin B6 was added to help with patient movement disorder. The patient's Zoloft was increased from 50 mg sedated to 100 mg a day to target anxiety and depression. She had denied any desire to consider inpatient substance abuse treatment despite adverse consequences associated with her continued use. Hospital Course Hospital Course Patient was restarted on her outpatient medications and showed great improvement with the resumption of her medication regimen. The patient did show evidence of significant abnormal involuntary motor movements and vitamin B6 was added to her regimen at 100 mg a day to help with these motor movements. During the hospitalization, the patient had routine laboratory studies which were within normal limits except for a few outliers.? Additionally, there was a general medical evaluation which was also within normal limits and revealed no new acute processes.? At the time of discharge, lethality was denied and psychosis was resolving.? Mood and anxiety were well managed.? The patient endorsed a plan to avoid all drugs of abuse and follow up with the aftercare recommendations of the treatment team.? The patient was evaluated and deemed to be absent credible lethality and had achieved the maximum benefit from an inpatient hospitalization, and so was discharged. She was optimistic about returning to live with her in a new apartment and stated that she would try to remain compliant with her medication regimen.? Involuntary Hold Information Hold Status: Legal Status: 96 Hour Hold Date/Time Hold Expires: voluntary 96 Hour Hold: 96 Hour Involuntary Admission: Yes Mental Status Exam MSE Comments: This is an underweight versus cachectic white female in hospital scrubs on with limited grooming and eye contact shaved nearly bald. Poor/absent dentition looking much older than her stated age. No abnormal movements except for psychomotor agitation some gesticulations and moderate oral buccal movements consistent with tardive dyskinesia. She was pleasant and cooperative with exam in moderate distress. Speech was mostly normal in rate , decreased in volume was significant slurring and speech impediment and poor use of chilean with mistakes with proper nouns. Mood described as okay. Affect was odd and subdued. Thought process was linear and organized. Thought content: Patient denied suicidal or homicidal ideation, there were no delusions reported and no clear evidence of paranoia. She denies any auditory or visual hallucinations this morning. Attention and concentration appear limited and memory was somewhat reliable but none were formally tested. Alert and oriented x person and place. Insight and judgment is fair. and impulse control is fair. Discharge Data Studies Completed and Pending: Laboratory Results WBC 12.65 10^3/uL (3. 29-11.43) H 10/08/24 19:04 RBC 4.13 10^6/uL (3.8 5-5.65) 10/08/24 19:04 Hgb 12.50 g/dL (11.27 -16.99) 10/08/24 19:04 Hct 38.7 % (36-47) 10/08/24 19:04 MCV 93.7 fl (85-98) 10/08/24 19:04 MCH 30.3 pg (27-33) 10/08/24 19:04 MCHC 32.3 g/dL (30-55) 10/08/24 19:04 RDW 14.0 % (12.1-15.1 ) 10/08/24 19:04 Plt Count 253 10^3/cmm (157 -399) 10/08/24 19:04 MPV 10.1 fL (7.4-10.4 ) 10/08/24 19:04 Neut % (Auto) 56.6 % 10/08/24 19:04 Lymph % (Auto) 36.2 % 10/08/24 19:04 [place] % (Auto) 4.6 % 10/08/24 19:04 Eos % (Auto) 1.7 % 10/08/24 19:04 Baso % (Auto) 0.7 % 10/08/24 19:04 Neut # (Auto) 7.15 10^3/uL (1.8 -7.7) 10/08/24 19:04 Lymph # (Auto) 4.6 10^3/uL (0.8- 4.8) 10/08/24 19:04 [place] # (Auto) 0.6 10^3/uL (0.2- 0.9) 10/08/24 19:04 Eos # (Auto) 0.2 10^3/uL (0.0- 0.8) 10/08/24 19:04 Baso # (Auto) 0.1 10^3/uL (0.0- 0.1) 10/08/24 19:04 Nucleated RBC % (a uto) 0 % 10/08/24 19:04 Nucleated RBCs # 0.0 /100WBC 10/08/24 19:04 Sodium 143 mmol/L (136-1 45) 10/08/24 19:04 Potassium 3.8 mmol/L (3.5-5 .1) 10/08/24 19:04 Chloride 107 mmol/L (98-10 7) 10/08/24 19:04 Carbon Dioxide 23 mmol/L (22-29) 10/08/24 19:04 Anion Gap 16.8 (5-19) 10/08/24 19:04 BUN 14 mg/dL (6-20) 10/08/24 19:04 Creatinine 0.6 mg/dL (0.5-0. 9) 10/08/24 19:04 GFR Calculation 102.3 mL/min (90- 130) 10/08/24 19:04 Glucose 168 mg/dL (65-115 ) H 10/08/24 19:04 Calculated Osmolal ity 300 mOsm/kg (285- 295) H 10/08/24 19:04 Calcium 9.3 mg/dL (8.5-10 .5) 10/08/24 19:04 Total Bilirubin 0.2 mg/dL (0.15-1 .2) 10/08/24 19:04 AST 12 U/L (0-32) 10/08/24 19:04 ALT 9 U/L (0-33) 10/08/24 19:04 Alkaline Phosphata se 77 U/L (35-105) 10/08/24 19:04 Total Protein 6.0 g/dL (6.6-8.7 ) L 10/08/24 19:04 Albumin 3.7 g/dL (3.5-5.2 ) 10/08/24 19:04 Globulin 2.3 g/dL (1.3-4.6 ) 10/08/24 19:04 Urine Color Yellow (Yellow) 10/08/24 17:28 Urine Appearance Clear (CLEAR) 10/08/24 17:28 Urine pH 5.5 (5-7) 10/08/24 17:28 Ur Specific Gravit y 1.006 (1.005-1.0 30) 10/08/24 17:28 Urine Protein Negative (Negati ve) 10/08/24 17:28 Urine Glucose (UA) Negative (Normal ) 10/08/24 17:28 Urine Ketones Negative (Negati ve) 10/08/24 17:28 Urine Blood Negative (Negati ve) 10/08/24 17:28 Urine Nitrate Negative (Negati ve) 10/08/24 17:28 Urine Bilirubin Negative (Negati ve) 10/08/24 17:28 Urine Urobilinogen 0.2 mg/dL (Negati ve) 10/08/24 17:28 Ur Leukocyte Marisa ase Trace (Negative) A 10/08/24 17:28 Urine RBC 0-2 /hpf (0-2) 10/08/24 17:28 Urine WBC 0-5 /hpf (0-5) 10/08/24 17:28 Ur Squamous Epith Cells 0-5 /hpf (0-5) 10/08/24 17:28 Amorphous Sediment Not Reportable 10/08/24 17:28 Urine Bacteria None seen /hpf (N ONE) 10/08/24 17:28 Hyaline Casts 0-4 /lpf H 10/08/24 17:28 Salicylates < 0.3 mg/dL (3-10 ) L 10/08/24 19:04 Urine Opiates Scre en Negative ng/mL (N egative) 10/08/24 17:28 Acetaminophen < 5.0 ug/mL (10-3 0) L 10/08/24 19:04 Ur Barbiturates Sc reen Negative ng/mL (N egative) 10/08/24 17:28 Ur Phencyclidine S crn Negative ng/mL (N egative) 10/08/24 17:28 Ur Amphetamines Sc reen Negative ng/mL (N egative) 10/08/24 17:28 U Benzodiazepines Scrn Negative ng/mL (N egative) 10/08/24 17:28 Urine Cocaine Scre en Negative ng/mL (N egative) 10/08/24 17:28 U Marijuana (THC) Screen Negative ng/mL (N egative) 10/08/24 17:28 Ethyl Alcohol < 10 mg/dL (0-10) 10/08/24 19:04 Vitals: Last Vital Signs Temp 97.8 F 10/14/24 05:17 Pulse 90 10/14/24 05:17 Resp 18 10/14/24 05:17 BP 125/78 10/14/24 05:17 Pulse Ox 96 10/14/24 05:17 O2 Del Method Room Air 10/13/24 14:00 Discharge Plan Discharge Patient Disposition: Home Condition: Stable Prescriptions: New pyridoxine (vitamin B6) 50 mg Tablet 100 mg PO BID 15 Days Qty: 60 1RF Continued trazodone 50 mg tablet 25 - 50 mg PO QPM Qty: 30 3RF hydroxyzine HCl 10 mg tablet 10 mg PO BID PRN (Reason: anxiety or sleep) 30 Days Qty: 60 5RF mupirocin 2 % ointment 1 applic topical BID Qty: 15 0RF Anoro Ellipta 62.5-25 mcg/actuation blister with device 1 inh inhalation Q24H Qty: 60 5RF albuterol sulfate 90 mcg/actuation HFA aerosol inhaler 1 puff INHALATION QID PRN (Reason: Shortness Of Breath) Qty: 8.5 2RF (DME) Left wrist brace See Rx Instructions .Route .MEDSUPPLY Qty: 1 0RF Rx Instructions: As directed sertraline 100 mg tablet 100 mg PO DAILY 30 Days Qty: 30 3RF ziprasidone HCl 40 mg capsule 40 mg PO BID 30 Days Qty: 60 4RF Rx Instructions: give with food (meal/snack) Discontinued methylprednisolone 4 mg tablets,dose pack See Rx Instructions .ROUTE .COMPLEX Qty: 21 0RF Rx Instructions: for 6 days Discharge Orders: Discharge Order (Routine); Ordered 10/14/24 Ordered By: Bandar Mckeon Referrals: [facility] [Other] - 10/25/24 1:00 pm [facility] Darlyn Shekhar [facility] [Other] - 10/27/24 2:00 pm Referral Note: Telehealth appointment with Darlyn Corrigan Psychiatrist. Lucila Thomas, [facility] [Primary Care Provider, [facility]] Discharge Diet: Usual diet Discharge Activity: Resume usual activity Patient Instructions: Schizophrenia (DC), Opioid Safety, Patient Portal & Martha Instructions Discharge Attestations [facility] Time Spent in Discharge Care*: less than 30 min Specific Discharge Activities: Specific discharge activities: educating patient, discussing with block and case maker/social workers/dc planners and documenting/other paperwork Status at Discharge: Cognitive status at discharge: cognitively intact, Behavioral status at discharge: cooperative, Coding Level of Care Code Acute Code for [facility] Fwd Diagnoses Schizoaffective disorder, depressive type F25.1 Suicidal ideation R45.851 Chronic migraine without aura, intractable, with status migrainosus G43.711 Itching of ear L29.9 Trauma of ear canal S09.91XA Left shoulder pain M25.512 Seizure R56.9 Demyelinating disease of central nervous system G37.9 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
[2024-10-14 12:09] VITALS: BP 138/64; PULSE 90; RESP 20; TEMP 36.6; O2SAT 96
--- NOTE | 2024-10-14 12:57 | DCPLANNER ---
.Imm was given to pt and rights explained and copy placed in pts file.
[2024-10-14 13:24] VITALS: BP 131/61; PULSE 80; RESP 16; TEMP 36.6; O2SAT 99
== END 2024-10-14 14:28 | disposition home or self-care (01) | DRG 885 ==
LOC: ER 21:59 → NP 22:25
PROVIDERS: Emergency Medicine; Admitting Provider Psychiatry & Neurology Psychiatry; Emergency Provider Physician Assistant; PCP Nurse Practitioner; Visit Provider Psychiatry & Neurology Psychiatry
DX: F25.1 Schizoaffective disorder, depressive type (principal); R45.851 Suicidal ideations; F33.2 Major depressive disorder, recurrent severe without psychotic features; F15.20 Other stimulant dependence, uncomplicated; G37.9 Demyelinating disease of central nervous system, unspecified; E85.4 Organ-limited amyloidosis; Z59.00 Homelessness unspecified; F12.20 Cannabis dependence, uncomplicated; R63.6 Underweight; Z68.21 Body mass index [BMI] 21.0-21.9, adult; F17.210 Nicotine dependence, cigarettes, uncomplicated; F17.290 Nicotine dependence, other tobacco product, uncomplicated; G43.711 Chronic migraine without aura, intractable, with status migrainosus; J44.9 Chronic obstructive pulmonary disease, unspecified
CPT/HCPCS: 36415; 80053; 80306; 80307; 81001; 85025; 93005; 94640; 96374; 96375; 97150; 97165; 99284; 99285; J1100; J1885; J7613; J9999

== ENCOUNTER 2024-10-16 23:57 | Emergency (ER) | payer MEDICARE, MEDICAID, SELFPAY ==
[2024-09-20 09:56] VITALS: BP 144/87; BMI 21.2
[2024-10-17 00:04] VITALS: BP 143/76; PULSE 112; RESP 20; TEMP 36.8; O2SAT 92; BMI 22.6
--- OUTSIDE RECORDS SUMMARY | 2024-10-17 00:14 | XMS_ITS | Clinical Summary ---
Author Organization [facility] Address [address] [place] [address] Phone Care Team Providers Care Dial Screw Assembler Name Role Phone Unavailable Primary Care Provider [...] on file Legal Sex Female 11:31 PM DOCUMENT MANAGEMENT SPECIALIST Gender Identity Not on file Sexual Orientation Not on file Last Filed Vital Signs Vital Sign Reading Time Taken Comments Blood Pressure 114/66 05/16/2024 5:45 PM DOCUMENT MANAGEMENT SPECIALIST Pulse 91 05/16/2024 5:45 PM DOCUMENT MANAGEMENT SPECIALIST Temperature 36.6 C (97.9 F) 05/16/2024 5:41 PM DOCUMENT MANAGEMENT SPECIALIST Respiratory Rate 18 05/16/2024 5:41 PM DOCUMENT MANAGEMENT SPECIALIST Oxygen Saturation 98% 05/16/2024 5:45 PM DOCUMENT MANAGEMENT SPECIALIST Inhaled Oxygen Concentration - - Weight 53 kg (116 lb 14.4 oz) 05/16/2024 5:41 PM DOCUMENT MANAGEMENT SPECIALIST Height 152.4 cm (5') 05/16/2024 5:41 PM DOCUMENT MANAGEMENT SPECIALIST Body Mass Index 22.83 05/16/2024 5:41 PM DOCUMENT MANAGEMENT SPECIALIST Plan of Treatment Health Maintenance Due Date [...] (1 of 2) 2015 INFLUENZA VACCINE (#1) 2024 Insurance MEDICAID [place] [facility]
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
[2024-10-17] MEDS: LORazepam 1 MG/0.5 ML injection IVP (00:57)
[2024-10-17] MEDS: water for injection-sterile 10 ML (00:58)
[2024-10-17 00:59] LABS: Hematocrit 37.5 % (36-47); Hemoglobin 12.10 g/dL (11.27-16.99); Mean Corpuscular HGB Conc 32.3 g/dL (30-55); Mean Corpuscular Hemoglobin 30.5 pg (27-33); Mean Corpuscular Volume 94.5 fl (85-98); Nucleated Red Blood Cells % 0 %; Platelet Count 274 10^3/cmm (157-399); Red Blood Count 3.97 10^6/uL (3.85-5.65); White Blood Count 12.19 10^3/uL (3.29-11.43)
[2024-10-17 01:16] LABS: Alanine Aminotransferase 13 U/L (0-33); Albumin Level 3.8 g/dL (3.5-5.2); Alkaline Phosphatase 98 U/L (35-105); Anion Gap 15.1 (5-19); Aspartate Amino Transferase 17 U/L (0-32); Blood Urea Nitrogen 11 mg/dL (6-20); Calcium 9.7 mg/dL (8.5-10.5); Carbon Dioxide 28 mmol/L (22-29); Chloride 102 mmol/L (98-107); Creatinine Clr Calc Pharmacy 83.3047; Globulin 2.7 g/dL (1.3-4.6); Glucose 175 mg/dL (65-115); Osmolality Calculated 296 mOsm/kg (285-295); Potassium 4.1 mmol/L (3.5-5.1); Sodium 141 mmol/L (136-145); Total Protein 6.5 g/dL (6.6-8.7)
[2024-10-17 01:17] LABS: Acetaminophen < 5.0 ug/mL (10-30); Alcohol Level < 10 mg/dL (0-10); Salicylate < 0.3 mg/dL (3-10)
--- NOTE | 2024-10-17 03:58 | PC.NURSE ---
0230- pt sleeping comfrotably in bed at this time. pt in no obvious distress. even chest rise and fall noted.
== END 2024-10-17 07:14 | disposition home or self-care (01) ==
PROVIDERS: Emergency Provider Emergency Medicine; PCP Nurse Practitioner
DX: T40.711A Poisoning by cannabis, accidental (unintentional), initial encounter (principal); X58.XXXA Exposure to other specified factors, initial encounter; F25.0 Schizoaffective disorder, bipolar type; F17.210 Nicotine dependence, cigarettes, uncomplicated; J44.9 Chronic obstructive pulmonary disease, unspecified; E11.9 Type 2 diabetes mellitus without complications
CPT/HCPCS: 80053; 80307; 85025; 96372; 96374; 99284; J2060; J3486

== ENCOUNTER 2025-01-17 16:05 | Inpatient (IN) | payer MEDICARE, MEDICAID, SELFPAY ==
[2025-01-17] VITALS (7 sets, daily range): BP systolic 137–148; BP diastolic 66–87; PULSE 78–86; RESP 16–20; TEMP 36.3–36.8; O2SAT 97–100; BMI 21.2
--- OUTSIDE RECORDS SUMMARY | 2025-01-17 16:11 | XMS_ITS | Clinical Summary ---
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 Active diphenhydrAMINE (BENADRYL) 25 mg tablet Take 50 mg by mouth nightly as needed for Allergies. Active Active Problems Problem Noted Date Diagnosed Date Suspected exposure to mold 10/18/2024 Head trauma, initial encounter 07/30/2022 Encounters Date Type Department Care Team Description 01/04/2025 External Device Data [facility] Provider, Abstract 12/08/2024 External Device Data [facility] Provider, Abstract 12/07/2024 External Device Data [facility] Provider, Abstract 12/07/2024 External Device Data [facility] Provider, Abstract 11/12/2024 Patient Outreach [facility] [id number] [facility] [address] [place] [address] Zhang Rivera Referral; Transportation Issues 11/11/2024 11:16 PM CDT - 11/12/2024 1:43 AM CDT Emergency [facility] Emergency Medicine [address] [facility] [address] [place] [address] Tate Evans MD Right lower quadrant abdominal pain (Primary Dx) Discharge Disposition: Home or Self Care 11/11/2024 Travel 11/03/2024 6:56 PM CDT - 11/03/2024 8:11 PM CDT Emergency [facility] Emergency Medicine [address] [facility] [address] [place] [address] Kurt Singletary MD Contusion of right forearm, initial encounter (Primary Dx) Discharge Disposition: Home Health Care [facility] 11/03/2024 Travel 10/19/2024 External Device Data [facility] Provider, Abstract 10/19/2024 External Device Data [facility] Provider, Abstract 10/19/2024 External Device Data [facility] Provider, Abstract 10/18/2024 7:45 AM CDT - 10/18/2024 8:05 AM CDT Emergency [facility] Emergency Medicine [address] [facility] [address] [place] [address] Suspected exposure to mold (Primary Dx) Discharge Disposition: Left without being seen 10/18/2024 - 10/18/2024 11:59 PM CDT Hospital Encounter [facility] [place] [address] [facility] [address] [place] [address] Ambulance, [facility] Discharge Disposition: [facility] 10/18/2024 Travel from Last 3 Months Social History Tobacco Use Types Packs/Day Years Used Date Smoking Tobacco: Every Day Cigarettes Pipe Smokeless Tobacco: Never Tobacco Cessation:Ready to Q uit: No; Counseling Given: No Alcohol Use Standard Drinks/Week Comments Never 0 (1 standard drink = 0.6 oz pur e alcohol) Feeling Safe Answer Date Recorded Are you in a relationship wi th someone who hurts you emotionally and/or physically? No 11/11/2024 Comments No Sex and Gender Information Value Date Recorded Sex Assigned at Not on file Legal Sex Female 11:31 PM [employer] Gender Identity Not on file Sexual Orientation Not on file Last Filed Vital Signs Vital Sign Reading Time Taken Comments Blood Pressure 101/87 11/12/2024 1:30 AM CDT Pulse 79 11/12/2024 1:30 AM CDT Temperature 36.1 C (96.9 F) 11/11/2024 11:02 PM CDT Respiratory Rate 15 11/12/2024 1:30 AM CDT Oxygen Saturation 96% 11/12/2024 1:30 AM CDT Inhaled Oxygen Concentration - - Weight 53.6 kg (118 lb 3.2 oz) 11/11/2024 11:02 PM CDT Height 152.4 cm (5') 11/11/2024 11:02 PM CDT Body Mass Index 23.08 11/11/2024 11:02 PM CDT Plan of Treatment Health Maintenance Due Date [...] of 2) 2015 INFLUENZA VACCINE (#1) 2024 Procedures Procedure Name Priority Date/Time Associated Diagnosis Comments CT ABDOMEN PELVIS W CONTRAST Stat 11/12/2024 12:45 AM CDT DIFFERENTIAL, MANUAL Stat 11/11/2024 11:24 PM CDT TROPONIN BASELINE, 5TH GEN Stat 11/11/2024 11:24 PM CDT LACTIC ACID Stat 11/11/2024 11:24 PM CDT LIPASE Stat 11/11/2024 11:24 PM CDT COMPREHENSIVE METABOLIC PANEL Stat 11/11/2024 11:24 PM CDT CBC WITH DIFFERENTIAL Stat 11/11/2024 11:24 PM CDT XR FOREARM 2 VW RIGHT Stat 11/03/2024 7:26 PM CDT from Last 3 Months Results * CT ABDOMEN PELVIS W CONTRAST (11/12/2024 12:45 AM CDT) Anatomical Region Laterality Modality Abdomen Computed Tomogra phy 11/12/2024 12:2 3 AM CDT Impressions 11/12/2024 1:20 AM CDT IMPRESSION: No acute process. Nonobstructing renal calculi. MACRO: None Narrative 11/12/2024 1:20 AM CDT EXAMINATION: CT ABDOMEN PELVIS W CONTRAST CLINICAL HISTORY: ASSOCIATED DIAGNOSIS: Abdominal pain, acute, nonlocalized ORDERING PROVIDER: TATE CHOU NOTE: COMPARISON: None TECHNIQUE: Contiguous axial images were obtained through the abdomen and pelvis from the level of the diaphragmatic domes through the pubic symphysis following bolus administration of intravenous contrast. MPR sagittal and coronal reconstructions were obtained from the axial data. Before infusion of intravenous contrast, radiology personnel investigated the possibility of an allergic history and of any history of reaction to iodinated contrast material. IOPAMIDOL 61 % INTRAVENOUS SOLUTION (SINGLE USE VIAL) Given:100 mL FINDINGS: Included images of the lower thorax: No focal lung consolidation or pleural effusion. Hepatobiliary: Unremarkable liver without biliary dilation. Pancreas: Unremarkable Spleen: Unremarkable Adrenal Glands: Unremarkable Kidneys, ureters, and bladder: Bilateral punctate nonobstructing renal calculi are present. No hydroureteronephrosis. Abdominal and pelvic vasculature: Atherosclerotic wall calcifications are present without abdominal aortic aneurysm. GI tract: No evidence of obstruction. The appendix is surgically absent. Colonic diverticulosis. Peritoneum and retroperitoneum: No free fluid or free air. Small fat-containing bilateral inguinal hernias. Lymph Nodes: No abdominal or pelvic lymphadenopathy. Uterus and adnexa: Status post hysterectomy. Visualized musculoskeletal structures: No acute fracture or destructive osseous lesion is identified. Procedure Note Rodriguez Anderson MD - 11/12/2024 EXAMINATION: CT ABDOMEN PELVIS W CONTRAST CLINICAL HISTORY: ASSOCIATED DIAGNOSIS: Abdominal pain, acute, nonlocalized ORDERING PROVIDER: TATE CHOU NOTE: COMPARISON: None TECHNIQUE: Contiguous axial images were obtained through the abdomen and pelvis from the level of the diaphragmatic domes through the pubic symphysis following bolus administration of intravenous contrast. MPR sagittal and coronal reconstructions were obtained from the axial data. Before infusion of intravenous contrast, radiology personnel investigated the possibility of an allergic history and of any history of reaction to iodinated contrast material. IOPAMIDOL 61 % INTRAVENOUS SOLUTION (SINGLE USE VIAL) Given:100 mL FINDINGS: Included images of the lower thorax: No focal lung consolidation or pleural effusion. Hepatobiliary: Unremarkable liver without biliary dilation. Pancreas: Unremarkable Spleen: Unremarkable Adrenal Glands: Unremarkable Kidneys, ureters, and bladder: Bilateral punctate nonobstructing renal calculi are present. No hydroureteronephrosis. Abdominal and pelvic vasculature: Atherosclerotic wall calcifications are present without abdominal aortic aneurysm. GI tract: No evidence of obstruction. The appendix is surgically absent. Colonic diverticulosis. Peritoneum and retroperitoneum: No free fluid or free air. Small fat-containing bilateral inguinal hernias. Lymph Nodes: No abdominal or pelvic lymphadenopathy. Uterus and adnexa: Status post hysterectomy. Visualized musculoskeletal structures: No acute fracture or destructive osseous lesion is identified. IMPRESSION: No acute process. Nonobstructing renal calculi. MACRO: None Tate Evans MD CT ORDERABLES Final Result * TROPONIN BASELINE, 5TH GEN (11/11/2024 11:24 PM CDT) [facility] TROPONIN T, BASELINE 5TH GEN <6 <=10 ng/L 11/12/2024 12:[address] [facility] Blood Venipuncture / Unknown 11/11/2024 11:24 PM CDT 11/11/2024 11:[address] [facility] - 11/12/2024 12:13 AM CDT Troponin Undetectable Tate Evans MD CHEMISTRY ORDERABLES Final Result [facility] CLIA # [id number] [address] [place] [address] [phone] * (ABNORMAL) MANUAL DIFFERENTIAL (11/11/2024 11:24 PM CDT) SEGMENTED NEUTROPHILS 32(L) 45 - 70 % 11/11/2024 11:[address] [facility] LYMPHOCYTES RELATIVE 56(H) 20 - 45 % 11/11/2024 11:55 PM [facility] MONOCYTES RELATIVE 9(H) 2 - 8 % 11/11/2024 11:55 PM [facility] EOSINOPHILS RELATIVE 2 0 - 5 % 11/11/2024 11:55 PM [facility] BASOPHILS RELATIVE 1 0 - 2 % 11/11/2024 11:55 PM [facility] NEUTROPHILS ABSOLUTE COUNT 3.23 1.78 - 5.38 K/uL 11/11/2024 11:55 PM [facility] LYMPHOCYTES ABSOLUTE 5.66(H) 1.20 - 4.00 K/uL 11/11/2024 11:55 PM [facility] MONOCYTES ABSOLUTE 0.91(H) 0.30 - 0.82 K/uL 11/11/2024 11:55 PM [facility] EOSINOPHILS ABSOLUTE 0.20 0.04 - 0.54 K/uL 11/11/2024 11:55 PM [facility] BASOPHILS ABSOLUTE 0.10(H) 0.01 - 0.08 K/uL 11/11/2024 11:55 PM [facility] TOTAL CELLS COUNTED IN DIFF 100 11/11/2024 11:55 PM [facility] PLATELET EST. Consistent w Count 11/11/2024 11:55 PM [facility] RBC MORPHOLOGY Normal 11/11/2024 11:55 PM [facility] Blood Venipuncture / Unknown 11/11/2024 11:24 PM CDT 11/11/2024 11:29 PM CDT us Tate Evans MD HEMATOLOGY ORDERABLES COM Final Result [facility] CLIA # [id number] [address] [place] [address] [phone] * LACTIC ACID (11/11/2024 11:24 PM CDT) LACTIC ACID 0.7 <=2.0 mmol/L 11/12/2024 12:[address] [facility] Blood BLOOD SPECIMEN / Unknown Venipuncture / Unknown 11/11/2024 11:24 PM CDT 11/11/2024 11:29 PM CDT Tate Evans MD CHEMISTRY ORDERABLES Final Result [facility] CLIA # [id number] [address] [place] [phone] * (ABNORMAL) CBC WITH DIFFERENTIAL (11/11/2024 11:24 PM CDT) Pathologist [facility] WBC 10.1(H) 4.0 - 10.0 K/uL 11/11/2024 11:[address] [facility] RBC 4.36 3.93 - 5.22 M/uL 11/11/2024 11:[address] [facility] HEMOGLOBIN 13.3 11.2 - 15.7 g/dL 11/11/2024 11:[address] [facility] HEMATOCRIT 39.6 34.1 - 44.9 % 11/11/2024 11:55 PM [facility] MCV 90.8 79.4 - 94.8 fL 11/11/2024 11:[address] [facility] MCH 30.5 25.6 - 32.2 pg 11/11/2024 11:55 PM [facility] MCHC 33.6 32.2 - 35.5 g/dL 11/11/2024 11:55 PM [facility] RDW 13.8 11.0 - 14.5 % 11/11/2024 11:55 PM [facility] RDW-STDEV 46.2 36.9 - 56.9 fL 11/11/2024 11:55 PM [facility] PLATELETS 289 163 - 337 K/uL 11/11/2024 11:[address] [facility] MPV 10.1 10.0 - 14.8 fL 11/11/2024 11:[address] [facility] Blood Venipuncture / Unknown 11/11/2024 11:24 PM CDT 11/11/2024 11:29 PM CDT Tate Evans MD HEMATOLOGY ORDERABLES Final Result [facility] CLIA # [id number] [address] [place] [phone] * LIPASE (11/11/2024 11:24 PM CDT) Pathologist [facility] LIPASE 52 13 - 60 U/L 11/12/2024 12:[address] [facility] Blood Venipuncture / Unknown 11/11/2024 11:24 PM CDT 11/11/2024 11:29 PM CDT Tate Evans MD CHEMISTRY ORDERABLES Final Result Performing Organization Address City/[facility]/ZIP Co de Phone Number [facility] CLIA # [id number] [address] [place] [address] [phone] * (ABNORMAL) COMPREHENSIVE METABOLIC PANEL (11/11/2024 11:24 PM CDT) SODIUM 143 136 - 145 mmol/L 11/12/2024 12:[address] [facility] POTASSIUM 4.0 3.5 - 5.1 mmol/L 11/12/2024 12:[address] [facility] CHLORIDE 105 98 - 107 mmol/L 11/12/2024 12:[address] [facility] CO2 25 22 - 29 mmol/L 11/12/2024 12:[address] [facility] CALCIUM 10.1(H) 8.6 - 10.0 mg/dL 11/12/2024 12:13 AM [facility] BUN 24(H) 6 - 20 mg/dL 11/12/2024 12:13 AM [facility] CREATININE 0.65 0.51 - 0.95 mg/dL 11/12/2024 12:13 AM [facility] GLUCOSE 118(H) 74 - 99 mg/dL 11/12/2024 12:13 AM [facility] TOTAL PROTEIN 7.2 6.6 - 8.7 g/dL 11/12/2024 12:13 AM [facility] ALBUMIN 4.5 3.5 - 5.2 g/dL 11/12/2024 12:13 AM [facility] BILIRUBIN TOTAL 0.2 0.0 - 1.2 mg/dL 11/12/2024 12:13 AM [facility] ALKALINE PHOSPHATASE 110(H) 35 - 104 U/L 11/12/2024 12:13 AM [facility] AST 21 0 - 35 U/L 11/12/2024 12:13 AM [facility] ALT 16 0 - 35 U/L 11/12/2024 12:13 AM [facility] GFR >60 >=60 mL/min/1.7 3 sq meter 11/12/2024 12:13 AM [facility] Comment:eGFR calculated with 2020 CKD-EPI equation. Vegetarian diet, extremely high or low muscle mass, and may affect results. Cystatin C with Glomerular Filtration Rate is a suitable alternative for these patients. ANION GAP 13 5 - 20 mmol/L 11/12/2024 12:13 AM [facility] Blood Venipuncture / Unknown 11/11/2024 11:24 PM CDT 11/11/2024 11:29 PM CDT us Tate Evans MD CHEMISTRY ORDERABLES Final Result [facility] CLIA # [id number] [address] [place] [address] [phone] * XR FOREARM 2 VW RIGHT (11/03/2024 7:26 PM CDT) Anatomical Region Laterality Modality Upper Extremity Computed Radiogr aphy 11/03/2024 7:26 PM CDT Impressions 11/03/2024 7:30 PM CDT IMPRESSION: No acute fracture or dislocation. Narrative 11/03/2024 7:30 PM CDT Exam: XR FOREARM 2 VW RIGHT Date/Time of Exam: 11/03/2024 7:26 PM Reason For Exam: Injury. Diagnosis: See Reason for Exam. Comparison: None. Procedure Note Isac Engle MD - 11/03/2024 Exam: XR FOREARM 2 VW RIGHT Date/Time of Exam: 11/03/2024 7:26 PM Reason For Exam: Injury. Diagnosis: See Reason for Exam. Comparison: None. IMPRESSION: No acute fracture or dislocation. Kurt Singletary MD DIAGNOSTIC IMAGING ORDER LAZARA Final Result from Last 3 Months Insurance MEDICAID [facility]
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
[2025-01-17 17:29] LABS: PCP Screen Urine Negative (Negative)
[2025-01-17 17:31] LABS: Hematocrit 42.7 % (36-47); Hemoglobin 14.10 g/dL (11.27-16.99); Mean Corpuscular HGB Conc 33.0 g/dL (30-55); Mean Corpuscular Hemoglobin 30.5 pg (27-33); Mean Corpuscular Volume 92.2 fl (85-98); Nucleated Red Blood Cells % 0 %; Platelet Count 314 10^3/cmm (157-399); Red Blood Count 4.63 10^6/uL (3.85-5.65); White Blood Count 9.77 10^3/uL (3.29-11.43)
[2025-01-17 17:51] LABS: Alanine Aminotransferase 11 U/L (0-33); Albumin Level 4.4 g/dL (3.5-5.2); Alkaline Phosphatase 106 U/L (35-105); Anion Gap 17.8 (5-19); Aspartate Amino Transferase 15 U/L (0-32); Blood Urea Nitrogen 13 mg/dL (6-20); Calcium 10.0 mg/dL (8.5-10.5); Carbon Dioxide 24 mmol/L (22-29); Chloride 104 mmol/L (98-107); Creatinine Clr Calc Pharmacy 79.8349; Globulin 3.1 g/dL (1.3-4.6); Glucose 88 mg/dL (65-115); Osmolality Calculated 294 mOsm/kg (285-295); Potassium 3.8 mmol/L (3.5-5.1); Sodium 142 mmol/L (136-145); Total Protein 7.5 g/dL (6.6-8.7)
[2025-01-17 17:52] LABS: Acetaminophen < 5.0 ug/mL (10-30); Alcohol Level < 10 mg/dL (0-10); Salicylate < 0.3 mg/dL (3-10)
[2025-01-17 18:15] LABS: Slide Review Slide Review Perform
--- NOTE | 2025-01-17 19:20 | PC.NURSE ---
Addendum entered by Yarelis Green LPN 01/18/25 18:50: CON'T FROM PREVIOUS ENTRY THIS NURSE REASSURED PATIENT THAT AT THIS TIME, DR MICHAEL IS THE DR THAT WILL BE TAKING CARE OF HER THIS WEEK. AND THAT DR MICHAEL IS VERY AWARE OF THE TREATMENT THAT THIS PATIENT NEEDS, AND TO NOT WORRY ABOUT DR CASTELLANO AT THIS TIME. PATIENT QUIETED DOWN AND HAS CALMED DOWN WITH ONLY VERBAL DEESCALATION. Original Note: HYSTERICAL BEHAVIOR WHEN THIS NURSE ENTERED PATIENTS ROOM FOR SHIFT ASSESSMENT, PATIENT WAS NOTED TO BE CRYING HYSTERICALLY AND ROCKING BACK AND FORTH. THIS NURSE ASKED PATIENT WHAT WAS GOING ON. PATIENT STATED THAT DR CASTELLANO TOLD HER THE NEXT TIME SHE WAS ADMITTED, WHETHER VOLUNTARY OR NONVOLUNTARY, SHE WOULD LOOSE HER RIGHTS AND BE COMMITTED.
--- NOTE | 2025-01-17 19:31 | PC.NURSE ---
Pt upset because she had a left wrist contraction with no brace. Skin was warm dry and no problems.
--- NOTE | 2025-01-17 19:36 | PC.ADMIT ---
[email or web address] [place] [address] [address]3 Admission Note: The patient,Brenna Amor,59 y/o, was given written information regarding hospital policies, unit procedures and contact persons. Patient's smoking status: current every day smoker. Vital Signs - 8 hr 01/17/25 16:05 01/17/25 18:30 01/17/25 18:32 Temperature 98.2 F 98.3 F 98.3 F Pulse Rate 82 83 83 Respiratory Rate 18 16 16 Blood Pressure 148/66 137/77 137/77 Pulse Oximetry 98 100 100 Oxygen Delivery Method Room Air Room Air Room Air 01/17/25 18:36 Temperature Pulse Rate Respiratory Rate Blood Pressure Pulse Oximetry Oxygen Delivery Method Room Air Pt upset because she had a left wrist contraction with no brace. Skin was warm dry and no problems.
--- NOTE | 2025-01-17 21:34 | PC.NURSE ---
Pt stated she has been suffering from migraines sometimes daily.
[2025-01-18] VITALS (8 sets, daily range): BP systolic 106–115; BP diastolic 64–68; PULSE 76–101; RESP 16–22; TEMP 36.6–36.9; O2SAT 94–99
--- NOTE | 2025-01-18 06:00 | PC.NURSE ---
REST PATIENT HAS RESTED WELL THE REST OF THIS NIGHT WITHOUT SIGNS AND SYMPTOMS OF DISTRESS NOTED.
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
[2025-01-18] MEDS: paliperidone ER 6 mg Tablet PO (09:31)
--- NOTE | 2025-01-18 09:32 | PC.NURSE ---
Administered Zofran 4mg for an upset stomach in the pt.
[2025-01-18] MEDS: ondansetron hcl ODT 4 mg Tab PO ×2 (12:41→19:01)
--- NOTE | 2025-01-19 01:42 | P.NPUPN_ITS ---
Subjective NPU 2 Subjective: Patient presented today reporting that she really wants to go home so she can help her significant other. We discussed making sure she keeps her bottom line plan in mind and that we need to get her functional back on her medication including a long-acting injectable because there is a need for her to be able to be in treatment being seen by doctors for her medical conditions and her unmedicated state as led to doctors refusing to see her and all kinds of other problems per her report. We discussed the risks, benefits and alternatives of restarting her Abilify and giving it to her as a long-acting injectable in hopes of managing her psychosis and mood dysregulation. She denied any side effects with the medication though she reports the Invega causes abdominal issues. Mental Status Exam 2 MSE Comments: This is an underweight versus cachectic white female in hospital scrubs on with limited grooming and eye contact. Poor/absent dentition looking much older than her stated age. No abnormal movements except for psychomotor agitation some gesticulations and oral buccal movements consistent with tardive dyskinesia. Mostly cooperative with exam in moderate distress. Speech was mostly normal rate rate and decreased volume was significant slurring, dysarthria and speech impediment. Mood described as not right but still struggling with what to do next, affect congruent and slightly subdued. Thought process organized. Thought content: Patient denied suicidal or homicidal ideation, there were no delusions reported or but possibly paranoid and persecutory delusions noted, she denies any auditory or visual hallucinations. Attention and concentration appear intact and memory was somewhat reliable but none were formally tested. Alert and oriented x x 3. Insight is fair, judgment is limited and impulse control is impaired Vitals/I&O/Wt Last Vital Signs Temp 98.3 F 01/19/25 06:00 Pulse 86 01/19/25 06:00 Resp 16 01/19/25 06:00 BP 117/73 01/19/25 06:00 Pulse Ox 93 01/19/25 06:00 O2 Del Method Room Air 01/19/25 06:00 Data NPU 01/17/25 17:07 01/17/25 17:07 A&P Assessment and plan 1. Schizoaffective disorder, depressive type: 2. Suicidal ideation: 3. Chronic migraine without aura, intractable, with status migrainosus: 4. Itching of ear: 5. Trauma of ear canal: 6. Left shoulder pain: 7. Seizure: 8. Demyelinating disease of central nervous system: 9. Hereditary central nervous system amyloid angiopathy: 10. Cannabis dependence, uncomplicated: 11. Major depressive disorder, recurrent severe without psychotic features: 12. Methamphetamine use disorder, severe, dependence: 13. Drug-induced psychotic disorder: 14. Withdrawal from methamphetamine: 15. Suicidal ideation: Plan: This is a 59 year old female with a history of schizoafffective disorder, methamphetamine dependence who was admitted for recent odd behavior and being off of medication. Patient presented without a positive UDS or remarkable BAL endorsing that some things are better but wanting to return home. 1.? Continued/restarted current medication. Plan for Abilify and subsequent injection. 2.? Continue every 15 minute checks for safety. 3.? Encourage individual, group and milieu therapies. 4.? Encourage sober living treatment after discharge at the highest level of care to which she is willing to commit. PDMP PDMP Reviewed: Not Reviewed Involuntary Hold Information 2 Hold Status: Date/Time Hold Expires: voluntary 96 Hour Hold: 96 Hour Involuntary Admission: Yes Attestations NPU 2 Medical Necessity Statement*: Inpatient hospitalization is medically necessary and the clinically appropriate intervention at this time. We will evaluate for medication changes and safety for discharge. Likely length of stay is 3-5 days. Coding Level of Care Code Acute Code for [facility] Diagnoses Schizoaffective disorder, depressive type F25.1 Suicidal ideation R45.851 Chronic migraine without aura, intractable, with status migrainosus G43.711 Itching of ear L29.9 Trauma of ear canal S09.91XA Left shoulder pain M25.512 Seizure R56.9 Demyelinating disease of central nervous system G37.9 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
[2025-01-19 06:00] VITALS: BP 117/73; PULSE 86; RESP 16; TEMP 36.8; O2SAT 93
[2025-01-19 08:00] VITALS: PULSE 135; RESP 20; O2SAT 98
[2025-01-19] MEDS: paliperidone ER 6 mg Tablet PO (08:17)
[2025-01-19] MEDS: ondansetron hcl ODT 4 mg Tab PO ×2 (10:27→15:40)
[2025-01-19 11:51] VITALS: PULSE 110; RESP 20; O2SAT 95
[2025-01-19 13:08] VITALS: BP 120/76; PULSE 115; RESP 16; TEMP 36.6; O2SAT 96
--- NOTE | 2025-01-19 18:29 | PC.NURSE ---
Pt complaining of R lower / midline stomach pain stating It feels like when I coughed earlier that my stomach split open and when I stand gravity pulls my colon and insides down and out, I have had pancreatitis before but I have never felt like this before . Dr. Pitt made aware.
[2025-01-19 20:41] VITALS: PULSE 110; RESP 20; O2SAT 96
--- NOTE | 2025-01-19 20:56 | PC.NURSE ---
PATIENT GOING BACK AND FORTH FROM ROOM TO NURSES DESK WITH THE FOLLOWING COMPLAINTS; MY ROOM IS TOO COLD (TEMP INCREASED TO 75; MY MATTRESS IS TOO COLD (TOP SHEET FOLDED IN FOURTHS AND PLACED UNDER BOTTOM SHEET); MY BELLY HURTS, NEED TO POOP (MILK OF MAG GIVEN); GIVE ME SOMETHING TO KNOCK ME OUT' (TRAZODONE AND ZYPREA GIVEN).
[2025-01-19 22:00] VITALS: BP 142/70; PULSE 94; RESP 18; TEMP 36.7; O2SAT 97
[2025-01-19] MEDS: alum-mag-hydroxide-sime 30 mL UDC 15 ML PO (23:17)
[2025-01-20] VITALS (7 sets, daily range): BP systolic 110–144; BP diastolic 64–74; PULSE 88–99; RESP 16–24; TEMP 36.5–37.7; O2SAT 93–98
[2025-01-20] MEDS: alum-mag-hydroxide-sime 30 mL UDC 15 ML PO (04:56)
--- NOTE | 2025-01-20 07:47 | P.NPUPN_ITS ---
Subjective NPU 2 Subjective: Patient presented today reporting things are okay. We discussed the fact that I was able to confirm that she has had Abilify which is what we had thought. We discussed the risks, benefits and alternatives given her the Abilify injection and she understood and agreed to proceed as is documented in this note. Mental Status Exam 2 MSE Comments: This is an underweight versus cachectic white female in hospital scrubs on with limited grooming and eye contact. Poor/absent dentition looking much older than her stated age. No abnormal movements except for psychomotor agitation some gesticulations and oral buccal movements consistent with tardive dyskinesia. Mostly cooperative with exam in moderate distress. Speech was mostly normal rate rate and decreased volume was significant slurring, dysarthria and speech impediment. Mood described as not right but still struggling with what to do next, affect congruent and slightly subdued. Thought process organized. Thought content: Patient denied suicidal or homicidal ideation, there were no delusions reported or but possibly paranoid and persecutory delusions noted, she denies any auditory or visual hallucinations. Attention and concentration appear intact and memory was somewhat reliable but none were formally tested. Alert and oriented x x 3. Insight is fair, judgment is limited and impulse control is impaired Vitals/I&O/Wt Last Vital Signs Temp 97.7 F 01/20/25 05:18 Pulse 97 01/20/25 05:18 Resp 19 H 01/20/25 05:18 BP 144/70 01/20/25 05:18 Pulse Ox 93 01/20/25 05:18 O2 Del Method Room Air 01/20/25 05:18 Data NPU 01/17/25 17:07 01/17/25 17:07 A&P Assessment and plan 1. Schizoaffective disorder, depressive type: 2. Suicidal ideation: 3. Chronic migraine without aura, intractable, with status migrainosus: 4. Itching of ear: 5. Trauma of ear canal: 6. Left shoulder pain: 7. Seizure: 8. Demyelinating disease of central nervous system: 9. Hereditary central nervous system amyloid angiopathy: 10. Cannabis dependence, uncomplicated: 11. Major depressive disorder, recurrent severe without psychotic features: 12. Methamphetamine use disorder, severe, dependence: 13. Drug-induced psychotic disorder: 14. Withdrawal from methamphetamine: 15. Suicidal ideation: Plan: This is a 59 year old female with a history of schizoafffective disorder, methamphetamine dependence who was admitted for recent odd behavior and being off of medication. Patient presented without a positive UDS or remarkable BAL endorsing that some things are better but wanting to return home. 1.? Continued/restarted current medication. Plan for Abilify and subsequent injection. Abilify Maintena 400 mg IM q. monthly will be initiated and will give her oral medication as well. 2.? Continue every 15 minute checks for safety. 3.? Encourage individual, group and milieu therapies. 4.? Encourage sober living treatment after discharge at the highest level of care to which she is willing to commit. PDMP PDMP Reviewed: Not Reviewed Involuntary Hold Information 2 Hold Status: Date/Time Hold Expires: voluntary 96 Hour Hold: 96 Hour Involuntary Admission: Yes Attestations NPU 2 Medical Necessity Statement*: Inpatient hospitalization is medically necessary and the clinically appropriate intervention at this time. We will evaluate for medication changes and safety for discharge. Likely length of stay is 3-5 days. Coding Level of Care Code Acute Code for [facility] Diagnoses Schizoaffective disorder, depressive type F25.1 Suicidal ideation R45.851 Chronic migraine without aura, intractable, with status migrainosus G43.711 Itching of ear L29.9 Trauma of ear canal S09.91XA Left shoulder pain M25.512 Seizure R56.9 Demyelinating disease of central nervous system G37.9 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
[2025-01-20] MEDS: paliperidone ER 6 mg Tablet PO (08:18)
[2025-01-20] MEDS: FLU VACC TS2025-26(6MOS UP)/PF 45 MCG/0.5 ML SYRINGE IM (09:44)
[2025-01-21 06:00] VITALS: BP 102/62; PULSE 120; RESP 18; TEMP 36.4; O2SAT 93
--- NOTE | 2025-01-21 06:38 | PC.NURSE ---
pulse elevated 120 nurse aware
[2025-01-21] MEDS: paliperidone ER 6 mg Tablet PO (08:13)
[2025-01-21] MEDS: ARIPiprazole Maintena 400 MG IM (08:52)
[2025-01-21 10:57] VITALS: PULSE 92; RESP 18; O2SAT 98
[2025-01-21 14:00] VITALS: BP 109/60; PULSE 110; RESP 16; TEMP 36.6; O2SAT 96
[2025-01-21 15:31] VITALS: PULSE 110; RESP 18; O2SAT 97
[2025-01-21] MEDS: alum-mag-hydroxide-sime 30 mL UDC 15 ML PO (19:38)
--- NOTE | 2025-01-21 19:39 | W.PM.NPUPNS ---
Subjective NPU Subjective: Patient presented today reporting things are improving. She reports that she tolerated the injection and is looking forward to discharge as soon as possible. She reports not having any negative thoughts and feeling optimistic about things improving moving forward. We discussed considering discharge in the morning she denied any side effects to her medication. Mental Status Exam MSE Comments: This is an underweight versus cachectic white female in hospital scrubs on with limited grooming and eye contact. Poor/absent dentition looking much older than her stated age. No abnormal movements except for psychomotor agitation some gesticulations and oral buccal movements consistent with tardive dyskinesia. Cooperative with exam in mild distress. Speech was mostly normal rate rate and decreased volume was significant slurring, dysarthria and speech impediment. Mood described as feeling better, affect congruent. Thought process organized. Thought content: Patient denied suicidal or homicidal ideation, there were no delusions reported or noted, she denies any auditory or visual hallucinations. Attention and concentration appear intact and memory was reliable but none were formally tested. Alert and oriented x 3. Insight is fair, judgment is limited and impulse control is limited but improving Vitals/I&O/Wt Last Vital Signs Temp 97.9 F 01/21/25 14:00 Pulse 110 H 01/21/25 15:31 Resp 18 01/21/25 15:31 BP 109/60 01/21/25 14:00 Pulse Ox 97 01/21/25 15:31 O2 Del Method Room Air 01/21/25 15:31 Data NPU 01/17/25 17:07 01/17/25 17:07 A&P Assessment and plan 1. Schizoaffective disorder, depressive type: 2. Suicidal ideation: 3. Chronic migraine without aura, intractable, with status migrainosus: 4. Itching of ear: 5. Trauma of ear canal: 6. Left shoulder pain: 7. Seizure: 8. Demyelinating disease of central nervous system: 9. Hereditary central nervous system amyloid angiopathy: 10. Cannabis dependence, uncomplicated: 11. Major depressive disorder, recurrent severe without psychotic features: 12. Methamphetamine use disorder, severe, dependence: 13. Drug-induced psychotic disorder: 14. Withdrawal from methamphetamine: 15. Suicidal ideation: Plan: This is a 59 year old female with a history of schizoafffective disorder, methamphetamine dependence who was admitted for recent odd behavior and being off of medication. Patient presented without a positive UDS or remarkable BAL endorsing that some things are better but wanting to return home. 1.? Continued/restarted current medication. Plan for Abilify and subsequent injection. Abilify Maintena 400 mg IM q. monthly initiated and started her oral Abilify 10 mg p.o. daily for 14 days. 2.? Continue every 15 minute checks for safety. 3.? Encourage individual, group and milieu therapies. 4.? Encourage sober living treatment after discharge at the highest level of care to which she is willing to commit. PDMP PDMP Reviewed: Not Reviewed Involuntary Hold Information Hold Status: Date/Time Hold Expires: voluntary 96 Hour Hold: 96 Hour Involuntary Admission: Yes Attestations NPU Medical Necessity Statement*: Inpatient hospitalization is medically necessary and the clinically appropriate intervention at this time. We will evaluate for medication changes and safety for discharge. Likely length of stay is 2-4 days. Coding Level of Care Code Acute Code for [facility] Diagnoses Schizoaffective disorder, depressive type F25.1 Suicidal ideation R45.851 Chronic migraine without aura, intractable, with status migrainosus G43.711 Itching of ear L29.9 Trauma of ear canal S09.91XA Left shoulder pain M25.512 Seizure R56.9 Demyelinating disease of central nervous system G37.9 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
[2025-01-21 21:30] VITALS: PULSE 99; RESP 18; O2SAT 96
[2025-01-21 22:00] VITALS: BP 101/58; PULSE 96; RESP 18; TEMP 36.6; O2SAT 94
[2025-01-21] MEDS: ondansetron hcl ODT 4 mg Tab PO (22:17)
[2025-01-22] VITALS (7 sets, daily range): BP systolic 107–141; BP diastolic 52–72; PULSE 94–109; RESP 16–19; TEMP 36.6–37.1; O2SAT 94–97
[2025-01-22] MEDS: paliperidone ER 6 mg Tablet PO (08:05)
--- NOTE | 2025-01-22 08:07 | W.PM.NPUPNS ---
Subjective NPU Subjective: Presented today reporting that he is doing okay outside of her abdominal pain. Tolerating he did staff report being much less isolative and more interactive. We discussed a tentative plan for discharge on Friday. He was pleased with that. She denied any side effects to her medication. Mental Status Exam MSE Comments: This is an underweight versus cachectic white female in hospital scrubs on with limited grooming and eye contact. Poor/absent dentition looking much older than her stated age. No abnormal movements except for psychomotor agitation some gesticulations and oral buccal movements consistent with tardive dyskinesia. Cooperative with exam in mild distress. Speech was mostly normal rate rate and decreased volume was significant slurring, dysarthria and speech impediment. Mood described as feeling better, affect congruent. Thought process organized. Thought content: Patient denied suicidal or homicidal ideation, there were no delusions reported or noted, she denies any auditory or visual hallucinations. Attention and concentration appear intact and memory was reliable but none were formally tested. Alert and oriented x 3. Insight is fair, judgment is limited and impulse control is limited but improving Vitals/I&O/Wt Last Vital Signs Temp 98.1 F 01/22/25 06:00 Pulse 109 H 01/22/25 06:00 Resp 18 01/22/25 06:00 BP 141/55 01/22/25 06:00 Pulse Ox 94 01/22/25 06:00 O2 Del Method Room Air 01/22/25 06:00 Weight last 48 hrs Weight 59.33 kg Data NPU 01/22/25 21:33 01/22/25 21:33 A&P Assessment and plan 1. Schizoaffective disorder, depressive type: 2. Suicidal ideation: 3. Chronic migraine without aura, intractable, with status migrainosus: 4. Itching of ear: 5. Trauma of ear canal: 6. Left shoulder pain: 7. Seizure: 8. Demyelinating disease of central nervous system: 9. Hereditary central nervous system amyloid angiopathy: 10. Cannabis dependence, uncomplicated: 11. Major depressive disorder, recurrent severe without psychotic features: 12. Methamphetamine use disorder, severe, dependence: 13. Drug-induced psychotic disorder: 14. Withdrawal from methamphetamine: 15. Suicidal ideation: Plan: This is a 59 year old female with a history of schizoafffective disorder, methamphetamine dependence who was admitted for recent odd behavior and being off of medication. Patient presented without a positive UDS or remarkable BAL endorsing that some things are better but wanting to return home. 1.? Continued/restarted current medication. Plan for Abilify and subsequent injection. Abilify Maintena 400 mg IM q. monthly initiated and started her oral Abilify 10 mg p.o. daily for 12 more days. 2.? Continue every 15 minute checks for safety. 3.? Encourage individual, group and milieu therapies. 4.? Encourage sober living treatment after discharge at the highest level of care to which she is willing to commit. 5. Get hospitalist consult for abdominal pain and follow-up recommendations as indicated. PDMP PDMP Reviewed: Not Reviewed Involuntary Hold Information Hold Status: Date/Time Hold Expires: voluntary 96 Hour Hold: 96 Hour Involuntary Admission: Yes Attestations NPU Medical Necessity Statement*: Inpatient hospitalization is medically necessary and the clinically appropriate intervention at this time. We will evaluate for medication changes and safety for discharge. Likely length of stay is 2 days. Coding Level of Care Code Acute Code for [facility] Diagnoses Schizoaffective disorder, depressive type F25.1 Suicidal ideation R45.851 Chronic migraine without aura, intractable, with status migrainosus G43.711 Itching of ear L29.9 Trauma of ear canal S09.91XA Left shoulder pain M25.512 Seizure R56.9 Demyelinating disease of central nervous system G37.9 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
[2025-01-22] MEDS: alum-mag-hydroxide-sime 30 mL UDC 15 ML PO (14:17)
--- NOTE | 2025-01-22 18:04 | XRR_ITS ---
PROCEDURE INFORMATION: Exam: XR Abdomen Exam date and time: 01/22/2025 6:02 PM Age: 59 years old Clinical indication: Abdominal pain; Acute; Prior surgery; Surgery date: 6+ months; Surgery type: Hyst TECHNIQUE: Imaging protocol: Radiologic exam of the abdomen. Views: Frontal supine view of the abdomen. 1 View. COMPARISON: CR XR KUB portable [id number] 11/02/2023 5:09 PM FINDINGS: Gastrointestinal tract: Nonobstructive bowel gas pattern. Paucity of the gas. Bones/joints: Unremarkable. XR/XR KUB portable [id number] IMPRESSION: Nonobstructive bowel gas pattern.
[2025-01-22 18:47] LABS: Glucose Urine UA Norm (Normal); Nitrate Urine Negative (Negative); Specific Gravity, Urine 1.010 (1.005-1.030)
[2025-01-22 18:49] LABS: Add Urine Microscopic? YES; UA Manual Slide Review YES
[2025-01-22] MEDS: ondansetron hcl ODT 4 mg Tab PO (19:26)
--- NOTE | 2025-01-22 21:09 | CTR_ITS ---
PROCEDURE INFORMATION: Exam: CT Abdomen And Pelvis With Contrast Exam date and time: 01/22/2025 10:07 PM Age: 59 years old Clinical indication: Abdominal pain; Generalized; Additional info: Abdominal pain, tenderness TECHNIQUE: Imaging protocol: Computed tomography of the abdomen and pelvis with contrast. Radiation optimization: All CT scans at this facility use at least one of these dose optimization techniques: automated exposure control; mA and/or kV adjustment per patient size (includes targeted exams where dose is matched to clinical indication); or iterative reconstruction. Contrast material: OMNIPAQUE 350; Contrast volume: 100 ml; Contrast route: INTRAVENOUS (IV); COMPARISON: CT abdomen pelvis w con* [id number] 05/13/2022 5:57 PM RADIATION DOSE METRICS: Total DLP (mGy-cm): 488.02 FINDINGS: Liver: Normal. No mass. Gallbladder and biliary ducts: Normal. No calcified stones. No ductal dilation. Pancreas: Normal. No ductal dilation. Spleen: Normal. No splenomegaly. Adrenal glands: Normal. No mass. Kidneys and ureters: Nonobstructing right renal calculus ; nonobstructing left renal calculus. Stomach and bowel: Colonic diverticulosis probably most conspicuous in region of sigmoid without definite significant acute inflammatory changes. Appendix: No evidence of appendicitis. Intraperitoneal space: Unremarkable. No free air. No significant fluid collection. Vasculature: Aortic atherosclerosis. Lymph nodes: Unremarkable. No enlarged lymph nodes. Urinary bladder: Unremarkable as visualized. Reproductive: Hysterectomy. Bones/joints: Mild degenerative changes of the lumbar vertebral bodies. Soft tissues: Unremarkable. CT/CT abdomen pelvis w con* [id number] IMPRESSION: 1. Nonobstructing right renal calculus ; nonobstructing left renal calculus. 2. Colonic diverticulosis probably most conspicuous in region of sigmoid without definite significant acute inflammatory changes. 3. No definite acute abdominopelvic abnormality.
[2025-01-22 21:40] LABS: Hematocrit 36.1 % (36-47); Hemoglobin 11.90 g/dL (11.27-16.99); Mean Corpuscular HGB Conc 33.0 g/dL (30-55); Mean Corpuscular Hemoglobin 30.5 pg (27-33); Mean Corpuscular Volume 92.6 fl (85-98); Platelet Count 258 10^3/cmm (157-399); Red Blood Count 3.90 10^6/uL (3.85-5.65); White Blood Count 8.11 10^3/uL (3.29-11.43)
[2025-01-22 21:59] LABS: Alanine Aminotransferase 12 U/L (0-33); Albumin Level 3.8 g/dL (3.5-5.2); Alkaline Phosphatase 126 U/L (35-105); Anion Gap 17.9 (5-19); Aspartate Amino Transferase 14 U/L (0-32); Blood Urea Nitrogen 17 mg/dL (6-20); Calcium 9.3 mg/dL (8.5-10.5); Carbon Dioxide 23 mmol/L (22-29); Chloride 105 mmol/L (98-107); Creatinine Clr Calc Pharmacy 93.1407; Globulin 2.5 g/dL (1.3-4.6); Glucose 196 mg/dL (65-115); Magnesium 2.1 mg/dL (1.7-2.3); Osmolality Calculated 301 mOsm/kg (285-295); Potassium 3.9 mmol/L (3.5-5.1); Sodium 142 mmol/L (136-145); Total Protein 6.3 g/dL (6.6-8.7)
[2025-01-22] MEDS: iohexol 350 mg/mL 500 mL Btl (per mL) IV (22:09)
[2025-01-22 22:58] LABS: Absolute Segmented Neutrophil 3.7 10/cmm (1.6-7.1); Band Neutrophils Absolute 0.0 10^3/cmm (0.0-1.2); Total Cells Counted 100 (0-100)
[2025-01-22 22:59] LABS: Atypical Lymphs 7.0 % (0-5)
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
[2025-01-23 06:00] VITALS: BP 144/75; PULSE 91; RESP 16; TEMP 37.1; O2SAT 95
--- NOTE | 2025-01-23 07:22 | PC.NURSE ---
CHLOE 01/22/2025 @ 1715 performed a focused abdominal assessment due to patient complaint of abdominal pain that she says feels like her belly is splitting open. BS were hyperactive in the LUQ she had diffuse tenderness with light palpation over entire abdomen. She verbalized significant suprapubic pain. She denies difficulty urinating.She endorses having alternating constipation and diarrhea for several months. She denies bleeding from the rectum. She has had good appetite eating 100% of her meals. She requested pepto bismol one time for dyspepsia and then Maalox. She verbalized relief after receiving these medications.
[2025-01-23] MEDS: paliperidone ER 6 mg Tablet PO (08:14)
[2025-01-23 08:19] VITALS: PULSE 91; RESP 16; O2SAT 94
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
--- NOTE | 2025-01-23 11:58 | P.PN_ITS ---
Subjective 2 Subjective: Abdominal pain improved. Vitals/I&O/Wt Last Vital Signs Temp 98.8 F 01/23/25 06:00 Pulse 91 01/23/25 08:19 Resp 16 01/23/25 08:19 BP 144/75 01/23/25 06:00 Pulse Ox 94 01/23/25 08:19 O2 Del Method Room Air 01/23/25 11:22 Weight last 48 hrs Weight 59.33 kg Physical Exam 2 Const: COMMON NORMALS: no acute distress, average body habitus and patient oriented x3 HENMT: COMMON NORMALS: normocephalic and atraumatic HEAD & SCALP: n ormocephalic and atraumatic Eye: COMMON NORMALS: Equal, round and reactive pupils present and EOMs intact bilaterally PUPIL: Yes Equal, round and reactive pupils present Resp: COMMON NORMALS: normal respiratory effort, No retractions and clear to auscultation bilaterally AUSCULTATION: clear to auscultation bilaterally Cardio: COMMON NORMALS: regular rate, regular rhythm, S1 normal heart sound present and S2 normal heart sound present RATE: regular rate RHYTHM: r egular rhythm HEART SOUNDS: S1 normal heart sound present and S2 normal heart sound present GI: COMMON NORMALS: Soft to palpation, No hepatosplenomegaly present and no masses PALPATION: Yes Soft to palpation and Yes No hepatosplenomegaly present OTHER: tenderness in right lower quadrant. Extremity: COMMON NORMALS: normal to inspection, no clubbing, cyanosis or edema, no calf tenderness and no pedal edema Neuro: COMMON NORMALS: patient oriented x3 Data 01/22/25 21:33 01/22/25 21:33 A&P Assessment and plan 1. Nausea alone: 2. Abdominal muscle strain: 3. Acute psychosis: Plan: 59 year old female presenting to neuro-psych for acute psychotic episode. Hospitalists consulted for abdominal pain. Lower abdominal muscle strain with pain - KUB negative and CT of the abdomen and pelvics with contrast negative - surgery consulted overnight, no interventions planned, signed off. - No accumulation of fluid - Continue PPI Nausea but with no vomiting - Electrolytes are within normal limits - CBC and CMP were unremarkable - PRN antiemetics Disposition - cont. neuro-psych admit for acute psychosis. Diet advanced, tolerating well. PDMP PDMP Reviewed: Not Reviewed Attestations 2 Medical Necessity Statement*: Ongoing neuro-psych admission per psychiatry recommendations. Coding Level of Care Code Acute Code for Chg Fwd Diagnoses Nausea alone R11.0 Abdominal muscle strain S39.011A Acute psychosis F23
[2025-01-23 14:00] VITALS: BP 119/72; PULSE 126; RESP 18; TEMP 36.9; O2SAT 95
[2025-01-23 14:40] VITALS: PULSE 97; RESP 18; O2SAT 95
--- NOTE | 2025-01-23 14:41 | P.NPUPN_ITS ---
Subjective NPU 2 Subjective: Patient presents today reporting that things are okay. She is desperately wanting to go home and we discussed the critical need for her to be connected to services at that we will need that social work team to assist her in getting home given she does not have her all right options. Possibly needed to be to get the medications in half which has been the problem in the past. Also she has been unable to have success with outpatient programming including her general medical patients and she needs a new appointment for PCP. Ultimately she acquiesced. We discussed the plan for discharge tomorrow she denied any side effects to her medication. Mental Status Exam 2 MSE Comments: This is an underweight versus cachectic white female in hospital scrubs on with limited grooming and eye contact. Poor/absent dentition looking much older than her stated age. No abnormal movements except for psychomotor agitation some gesticulations and oral buccal movements consistent with tardive dyskinesia. Cooperative with exam in mild distress. Speech was mostly normal rate rate and decreased volume was significant slurring, dysarthria and speech impediment. Mood described as feeling better, affect congruent. Thought process organized. Thought content: Patient denied suicidal or homicidal ideation, there were no delusions reported or noted, she denies any auditory or visual hallucinations. Attention and concentration appear intact and memory was reliable but none were formally tested. Alert and oriented x 3. Insight is fair, judgment is limited and impulse control is limited but improving Vitals/I&O/Wt Last Vital Signs Temp 98.5 F 01/23/25 14:00 Pulse 97 01/23/25 14:40 Resp 18 01/23/25 14:40 BP 119/72 01/23/25 14:00 Pulse Ox 95 01/23/25 14:40 O2 Del Method Room Air 01/23/25 14:40 Weight last 48 hrs Weight 59.33 kg Data NPU 01/22/25 21:33 01/22/25 21:33 A&P Assessment and plan 1. Nausea alone: 2. Abdominal muscle strain: 3. Acute psychosis: 4. Schizoaffective disorder, depressive type: 5. Suicidal ideation: 6. Chronic migraine without aura, intractable, with status migrainosus: 7. Itching of ear: 8. Trauma of ear canal: 9. Left shoulder pain: 10. Seizure: 11. Demyelinating disease of central nervous system: 12. Hereditary central nervous system amyloid angiopathy: 13. Cannabis dependence, uncomplicated: 14. Major depressive disorder, recurrent severe without psychotic features: 15. Methamphetamine use disorder, severe, dependence: 16. Drug-induced psychotic disorder: 17. Withdrawal from methamphetamine: 18. Suicidal ideation: Plan: This is a 59 year old female with a history of schizoafffective disorder, methamphetamine dependence who was admitted for recent odd behavior and being off of medication. Patient presented without a positive UDS or remarkable BAL endorsing that some things are better but wanting to return home. 1.? Continued/restarted current medication. Plan for Abilify and subsequent injection. Abilify Maintena 400 mg IM q. monthly initiated and started her oral Abilify 10 mg p.o. daily for 11 more days. 2.? Continue every 15 minute checks for safety. 3.? Encourage individual, group and milieu therapies. 4.? Encourage sober living treatment after discharge at the highest level of care to which she is willing to commit. 5. Get hospitalist consult for abdominal pain and follow-up recommendations as indicated. PDMP PDMP Reviewed: Not Reviewed Involuntary Hold Information 2 Hold Status: Date/Time Hold Expires: voluntary 96 Hour Hold: 96 Hour Involuntary Admission: Yes Attestations NPU 2 Medical Necessity Statement*: Inpatient hospitalization is medically necessary and the clinically appropriate intervention at this time. We will evaluate for medication changes and safety for discharge. Likely length of stay is 1 day. Coding Level of Care Code Acute Code for Chg Fwd Diagnoses Nausea alone R11.0 Abdominal muscle strain S39.011A Acute psychosis F23 Schizoaffective disorder, depressive type F25.1 Suicidal ideation R45.851 Chronic migraine without aura, intractable, with status migrainosus G43.711 Itching of ear L29.9 Trauma of ear canal S09.91XA Left shoulder pain M25.512 Seizure R56.9 Demyelinating disease of central nervous system G37.9 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
[2025-01-23 19:46] VITALS: BP 118/57; PULSE 90; RESP 17; TEMP 37.2; O2SAT 94
[2025-01-23 20:25] VITALS: PULSE 98; RESP 18; O2SAT 95
[2025-01-24 05:13] VITALS: BP 105/59; PULSE 107; RESP 18; TEMP 36.4; O2SAT 95
[2025-01-24 08:19] VITALS: PULSE 107; RESP 18; O2SAT 97
[2025-01-24] MEDS: paliperidone ER 6 mg Tablet PO (08:37)
[2025-01-24 12:23] VITALS: BP 105/59; PULSE 107; RESP 18; TEMP 36.4; O2SAT 95
--- NOTE | 2025-01-24 12:29 | DCPLANNER ---
IMM was given to pt and rights explained. Copy placed in pts file.
== END 2025-01-24 13:35 | disposition home or self-care (01) | DRG 885 ==
LOC: ER 17:04 → NP 17:18
PROVIDERS: Admitting Provider Psychiatry & Neurology Psychiatry; Emergency Provider Physician Assistant; PCP Nurse Practitioner; Visit Provider Psychiatry & Neurology Psychiatry
DX: F25.1 Schizoaffective disorder, depressive type (principal); F15.20 Other stimulant dependence, uncomplicated; R64 Cachexia; Z68.21 Body mass index [BMI] 21.0-21.9, adult; F17.210 Nicotine dependence, cigarettes, uncomplicated; F17.290 Nicotine dependence, other tobacco product, uncomplicated; Z90.710 Acquired absence of both cervix and uterus; J44.9 Chronic obstructive pulmonary disease, unspecified; Z79.51 Long term (current) use of inhaled steroids; E11.9 Type 2 diabetes mellitus without complications; Z91.148 Patient's other noncompliance with medication regimen for other reason; S39.011A Strain of muscle, fascia and tendon of abdomen, initial encounter; X58.XXXA Exposure to other specified factors, initial encounter; R11.0 Nausea
CPT/HCPCS: 36415; 74018; 74177; 80053; 80306; 80307; 81001; 83735; 84100; 85007; 85025; 85027; 90471; 90656; 94640; 94664; 96372; 97150; 97165; 99285; J7626; J9999; Q0162

== ENCOUNTER → 2025-02-28 12:06 | Outpatient (BNVA) | payer SELFPAY ==
[2025-01-31 09:03] VITALS: BP 144/87; BMI 21.2
== END ==
PROVIDERS: PCP Nurse Practitioner; Visit Provider Nurse Practitioner
DX: M25.511 Pain in right shoulder (principal); Z91.81 History of falling; Z98.890 Other specified postprocedural states
CPT/HCPCS: 73030

== ENCOUNTER 2025-03-23 09:10 | Outpatient (CLI) | payer MEDICARE, MEDICAID, SELFPAY ==
[2025-03-21 09:29] VITALS: BP 144/87; BMI 21.2
--- NOTE | 2025-03-23 09:30 | MRR_ITS ---
PROCEDURE INFORMATION: Exam: MR Right Upper Extremity Joint Without Contrast; Shoulder Exam date and time: 03/23/2025 10:01 AM Age: 59 years old Clinical indication: Right; RT shoulder pain S/P fall in February. ; Additional info: Right shoulder pain TECHNIQUE: Imaging protocol: Magnetic resonance imaging of the right upper extremity without contrast. Exam focused on the shoulder. COMPARISON: CR XR shoulder RT min 2V* [id number] 02/28/2025 12:06 PM FINDINGS: Bones/joints: The cartilaginous coverings are intact and normal in appearance. There is mild acromioclavicular osteoarthritis with small inferior bone spurs. There is a type 2, curved acromial process. Glenoid labrum: The glenoid labrum is unremarkable. Supraspinatus tendon: Partial-thickness tearing, bursal surface, supraspinatus tendon involving less than 50% of the tendon thickness, at the area underlying small bone spurs of the AC joint series 801 image 14. Infraspinatus tendon: The infraspinatus tendon is unremarkable. No evidence of tear. Subscapularis tendon: Tendinopathy of the subscapularis tendon with mild interstitial tearing, series 501, image 14. Teres minor tendon: The teres minor tendon is unremarkable. No evidence of tear. Tendon of biceps brachii: Mild focal tendinopathy of the distal intra-articular aspect, long bicipital tendon, series 801, image 16. Tenosynovitis of the long bicipital tendon, series 501, image 16. Glenohumeral ligaments: The glenohumeral ligaments are unremarkable. Soft tissues: There is no significant atrophy of the rotator cuff muscles. The soft tissues are unremarkable. Other findings: Visible portions of the lungs are unremarkable. MR/MR shoulder RT wo con* [id number] IMPRESSION: 1. Partial-thickness tearing, bursal surface, supraspinatus tendon involving less than 50% of the tendon thickness, at the area underlying small bone spurs of the AC joint series 801 image 14. 2. Tendinopathy of the subscapularis tendon with mild interstitial tearing, series 501, image 14. 3. Mild focal tendinopathy of the distal intra-articular aspect, long bicipital tendon, series 801, image 16. Tenosynovitis of the long bicipital tendon, series 501, image 16. 4. There is mild acromioclavicular osteoarthritis with small inferior bone spurs.
== END 2025-03-23 09:11 | disposition home or self-care (01) ==
LOC: RAD 09:11
PROVIDERS: PCP Nurse Practitioner
DX: M25.511 Pain in right shoulder (principal); M75.111 Incomplete rotator cuff tear or rupture of right shoulder, not specified as traumatic; M75.41 Impingement syndrome of right shoulder; M75.21 Bicipital tendinitis, right shoulder; M25.711 Osteophyte, right shoulder; M19.011 Primary osteoarthritis, right shoulder
CPT/HCPCS: 73221

== ENCOUNTER → 2025-04-12 11:30 | Outpatient (BNVA) | payer OTHER, SELFPAY ==
[2025-04-03 13:29] VITALS: BP 144/87; BMI 21.2
== END ==
PROVIDERS: PCP Nurse Practitioner; Visit Provider Nurse Practitioner Psychiatric/Mental Health
DX: F43.12 Post-traumatic stress disorder, chronic (principal); F60.3 Borderline personality disorder
CPT/HCPCS: 80061; 83036

== ENCOUNTER → 2025-04-13 07:40 | Outpatient (BNVA) | payer MEDICARE, MEDICAID, SELFPAY ==
[2025-04-13 10:08] VITALS: BP 141/80; BMI 23.1
== END ==
PROVIDERS: PCP Nurse Practitioner; Visit Provider Podiatrist Foot & Ankle Surgery
DX: E11.42 Type 2 diabetes mellitus with diabetic polyneuropathy (principal); B35.1 Tinea unguium
CPT/HCPCS: 11721; 99204